=== PATIENT | male | born 1950 | race Two or more races ===

== ENCOUNTER 2025-01-11 09:57 | Inpatient (IN) | payer MEDICARE, MEDICAID ==
[~2025-01-11] VITALS: Ht 165.1 cm; Wt 78.6 kg
--- NOTE | 2025-01-11 10:56 | ED.PDOC ---
GI ASSESSMENT HPI Comments 74 y/o M presents with relatives for c/o abdominal pain for 2 days Patient is a poor historian. He reports on onset of pain following recent "stent placement in [his] stomach" on 12/29/24 at another facility. Patient, via previous discharge paperwork from said facility, had a ERCP with biliary stent removed and replaced on 12/22/24. He reports on being found with a liver mass and having a biopsy performed on 12/29/24. On 12/19/24, patient also reports on having a echocardiogram performed, showing a EF of 25%. Patient denies any nausea, vomiting, diarrhea, constipation, urinary symptoms, fever, chills, or other associated symptoms or modifying factors at this time. Past medical history: DM, HTN, HLD, on lasix, Cefdinir and Augment 7 day antibiotic course recent completion Past surgical history: liver biopsy, ERCP w/biliary stent removal and replacement HPI: Poor Historian. REVIEW OF SYSTEMS: CONSTITUTIONAL: Denies acute: fever, diaphoresis, chills, generalized weakness. HEAD: Denies acute: headache, photophobia Eyes: Denies acute: Double vision, vision loss, eye pain, eye discharge. EARS: Denies acute: tinnitus, hearing loss, ear discharge, ear pain, THROAT: Denies acute: sore throat, swelling, difficulty swallowing , pain with swallowing, change in voice. NECK: Denies acute: neck pain, neck swelling, stiff neck. HEART: Denies acute : chest pain, palpitations, LUNGS: Denies acute: SOB, wheezing, cough, hemoptysis ABDOMEN: Denies acute: Nausea, Vomiting, diarrhea, melena , hematemesis, hematochezia SKIN: Denies acute: rash, redness, lesions, itchiness. EXTREMITIES: Denies acute: calf pain, numbness, tingling, weakness, denies pain in extremity. Denies acute: Low back pain. Neuro: Denies acute: focal neurological deficit, motor or sensory focal neurological deficit, tremors, seizure like activity, confusion, dizziness, change in mental status, loss of bowel or bladder function, cauda equina like symptoms. : Denies acute: dysuria, hematuria, flank pain, increase in urinary frequency. PSYCH: Denies acute: hallucination, suicidal ideation, homicidal ideation. PHYSICAL EXAM: General: ----mild----acute distress, awake and alert. Head: normocephalic, atraumatic. Neck: supple, trachea is midline, no swelling. Throat: Normal phonation. Eyes:, no erythema, no purulent discharge, no proptosis, no icterus. Heart: regular rate, regular rhythm, no significant murmur appreciated. Lungs: no apparent respiratory distress, Able to speak in full sentences. No wheezing, no rhonchi, no crackles. No stridors Clear to auscultation bilaterally. Abdomen: Umbilical tender to palpation, non distended, soft, no guarding, no rebound, + bowel sounds. Neuro: Awake, Alert, oriented to name, self, situation, follows commands GCS=15. Speech is normal. Skin: no petechia, no purpura, no cyanosis, non-pale, not jaundice. Lower extremities: --2/4 b/l - Pitting edema no deformity, no focal swelling, no calf TTP. Makes eye contact. moves all four extremities. Face: no apparent facial droop. ED COURSE: Time Seen by MD: 10:25 Reviewed Notes: Nurses Notes, Medications, Allergies Allergies: Coded Allergies: NO KNOWN ALLERGIES (Unverified , 01/11/25) Home Meds No Active Prescriptions or Reported Meds Information Source: Patient, Relative Mode of Arrival: Wheelchair Was a procedure done? Was a procedure done?: No GI differential Dx Differential Diagnosis: Other (DDX include but not limited to diverticulitis, colitis, gastroenteritis, acute abdomen, SBO, enteritis, constipation, volvulus, appendicitis, Gallbladder disease, choledocolithiasis, ascending cholangitis, pancreatitis, intraAbdominal mass/neoplasm, hepatitis, UTI, pylonephritis, kidney stone, aneurysm, dissection, Inflammatory bowel disease, gastroparesis, ischemic bowel.) X-Ray, Labs, Meds, VS Vital Signs Date Time Temp Pulse Resp B/P (MAP) Pulse Ox O2 Delivery O2 Flow Rate FiO2 01/11/25 16:45 136/88 01/11/25 16:29 84 16 98 Room Air 01/11/25 16:29 98.2 84 16 136/88 (104) 98 98.2 01/11/25 11:16 86 01/11/25 11:15 98.0 85 16 126/88 (101) 99 98.0 Lab Test 01/11/25 17:14 01/11/25 13:28 01/11/25 12:23 01/11/25 11:03 Range/Units Lactic Acid Level 3.5 *H 2.6 *H 3.1 *H 0.4-2.0 mmol/L Urine Color Yellow Yellow Urine Clarity Clear Clear Urine pH 6.0 5.0-9.[address] [place] 1.031 1.001-1.035 Urine Protein 1+ H Negative Urine Ketones Negative Negative Urine Blood Negative Negative /uL Urine Nitrite Negative Negative Urine Bilirubin 1+ Negative Urine Urobilinogen 2 H Negative mg/dL Urine Leukocyte Esterase Negative Negative /uL Urine RBC 2 0 - 3 /hpf Urine Microscopic WBC 2 0-3 /HPF Urine Squamous Epithelial Cells Few <5 /hpf Urine Calcium Oxalate Crystals Few None Seen Urine Bacteria None seen None Seen /hpf Urine Mucus Few None Seen Urine Glucose Normal Normal mg/dL White Blood Count 5.0 4.4-10.8 10^3/uL Red Blood Count 4.90 4.5-5.90 10^6/uL Hemoglobin 10.4 L 13.5-17.5 g/dL Hematocrit 33.3 L 41.0-53.0 % Mean Corpuscular Volume 67.9 L 80.0-100.0 fL Mean Corpuscular Hemoglobin 21.2 L 28.0-32.0 pg Mean Corpuscular Hemoglobin Concent 31.1 L 32.0-36.0 g/dL Red Cell Distribution Width 21.6 H 11.8-14.3 % Platelet Count 218 140-450 10^3/uL Mean Platelet Volume 8.3 6.9-10.8 fL Neutrophils (%) (Auto) 65.8 37.0-80.0 % Lymphocytes (%) (Auto) 23.4 10.0-50.0 % Monocytes (%) (Auto) 9.0 0.0-12.0 % Eosinophils (%) (Auto) 0.9 0.0-7.0 % Basophils (%) (Auto) 0.9 0.0-2.0 % Neutrophils # (Auto) 3.3 1.6-8.6 10 ^3/uL Lymphocytes # (Auto) 1.2 0.4-5.4 10 ^3/uL Monocytes # (Auto) 0.5 0-1.3 10 ^3/uL Eosinophils # (Auto) 0 0-0.8 10 ^3/uL Basophils # (Auto) 0 0-0.2 10 ^3/uL Nucleated Red Blood Cells 0.1 % Sodium Level 142 136-145 mmol/L Potassium Level 3.7 3.5-5.1 mmol/L Chloride Level 109 H 98-107 mmol/L Carbon Dioxide Level 23 20-31 mmol/L Anion Gap 10 5-15 Blood Urea Nitrogen 9 9-23 mg/dL Creatinine 0.78 0.700-1.30 mg/dL Glomerular Filtration Rate Calc 94 >90 mL/min BUN/Creatinine Ratio 11.5 10.0-20.0 Serum Glucose 134 H 74-106 mg/dL Calcium Level 9.2 8.7-10.4 mg/dL Total Bilirubin 2.4 H 0.2-1.0 mg/dL Aspartate Amino Transferase (AST) 53 H 13-40 U/L Alanine Aminotransferase (ALT) 31 7-40 U/L Alkaline Phosphatase 417 H 46-116 U/L Troponin I High Sensitivity 12 </=54 ng/L Total Protein 8.1 5.7-8.2 g/dL Albumin 3.4 3.2-4.8 g/dL Lipase 30 12-53 U/L [place] [address] Ph: [phone] DIAGNOSTIC IMAGING Diagnostic Imaging Report : [id number] Signed PATIENT: TIM NULL ACCT: [id number] UNIT: [id number] : 1950 LOC: ER ROOM / BED: / AGE / SEX: 74 / M ADM STATUS: REG ER SERVICE 1040 ORDERING PHYSICIAN: MONI GRUBER DO PROCEDURE(s): ABPLIV - CT AB PEL WITH IV CON ONLY REASON: POST OP ABD PAIN ORDER NUMBER(s): [id number], ACCESSION NUMBER(s): [id number] CLINICAL INFORMATION: Postop abdominal pain. Reported abdominal stent placement on 12/31/2024. TECHNIQUE: Axial CT images of the abdomen and pelvis were obtained after the u neventful administration of 100 mL Omnipaque 300 IV contrast. Coronal and sagittal reformatted images were obtained, reviewed, and stored. All CT scans at this medical facility are performed using dose modulation techniques as appropriate to a performed exam including the following: Automated exposure control was utilized; adjustment of the MA and/or KV according to patient size; and use of iterative reconstruction technique. CTDIvol = 9.57 mGy DLP = 531.5 mGy-cm COMPARISON: None FINDINGS: Motion artifact limits evaluation. Lung bases: Small right pleural effusion partially visualized, with overlying atelectasis. Moderate emphysematous changes partially visualized. Liver: Nodular contour of the liver with relative enlargement of the left hepatic lobe, may be seen with cirrhosis in the appropriate clinical setting. There is a peripherally enhancing structure in the upper abdomen adjacent to the caudate lobe of the liver, measuring up to 4.5 x 4.5 x 5.5 cm, with central low-density structure measuring slightly greater than fluid attenuation with the surrounding area of enhancement demonstrating a greater degree of enhancement in the adjacent portions of the liver, possible liver mass or mass adjacent to the liver. Biliary: There is a common bile duct stent in place with associated catheter tubing along the proximal and distal aspects of the stent, likely components of the stent. There is no intrahepatic biliary ductal dilatation. There is a small amount of gas within the gallbladder and moderate pericholecystic fluid, although may be due to the ascites. Spleen: Unremarkable. Pancreas: Pancreatic duct measures up to 3 mm in diameter, at the upper limits of normal Adrenal glands: Unremarkable. No mass. Kidneys: No hydronephrosis or mass. Aorta/Vascular: Moderate atherosclerotic calcification. No abdominal aortic aneurysm or dissection. Retroperitoneum: Limited evaluation due to motion artifact and ascites. Bowel/mesentery: Moderate ascites. Nonspecific mildly distended small bowel loops. No small bowel obstruction. Appendix is not visualized. Moderate stool in the colon. Pelvic organs: Limited evaluation due to prominent beam hardening artifact from the bilateral hip prostheses. Bladder: Limited evaluation to prominent beam hardening artifact from the bilateral hip prostheses. Abdominal wall: Diffuse anasarca. Bones: No acute fracture or focal intraosseous lesion. IMPRESSION: 1. Mass in the upper abdomen with enhancement of its periphery and central hypo enhancement/non enhancement, abutting the caudate lobe of the liver, but periphery of the mass appears to enhance greater than the liver parenchyma. Possible liver mass or mass adjacent to the liver. Malignancy not excluded. Correlate with clinical findings and clinical history. 2. Common bile duct stent in place as described above. 3. Gas within the gallbladder may be due to recent intervention associated with the bile duct stent placement. Infectious/inflammatory etiology not excluded in the appropriate clinical setting. Cholecystic fluid may be due to the ascites. Correlate with clinical findings. 4. Moderate ascites and anasarca. 5. Small right pleural effusion. 6. Pancreatic duct measures at the upper limits of normal in diameter. 7. Cirrhotic liver morphology. 8. Additional findings as detailed above. ATED BY: ALBERT SAMUEL DO DICTATED DATE/TIME: 01/11/25 152 SIGNED BY: ALBERT SAMUEL DO SIGNED DATE/TIME: 01/11/25 1529 CC: Time of 1ST Reevaluation: 10:25 Reevaluation 1ST: Unchanged Patient Education/Counseling: Diagnosis, Treatment Family Education/Counseling: Diagnosis, Treatment Comments Patient presented with the above HPI.---postoperative abdominal pain---workup was initiated. patient was found with the above mentioned diagnosis. the following medications were ordered: please refer to order lists of meds and tests obtained by myself Dr. Gruber. Patient ED course and VS have been stabilized. Patient has been reassessed in the ED and remained in a stable condition. Pertinent incidental findings were discussed with the patient and/or family. Patient/family voices understanding and is agreeable with plan. Patient has been observed in the ED adequate length of time to insure improvement/stability. Escalation of care considered: Consideration of escalation to observation or admission There was a delay of care because patient was at very hard IV stick. PICC line were unable to establish have midline. CT scan was obtained with contrast. Findings on CT scan report were essentially chronic findings. Patient is sensitive leaving against medical advice. He requested the IV to be removed. Patient went outside and waited in the car for repeat lactic acid. Patient was found with rising lactic acid. Antibiotics initiated. Patient was ADMITTED to the medicine team for further evaluation and treatment of their presentation. All the reports of any imaging studies that were ordered by myself were reviewed by myself. Departure 1 Departure Time of Disposition: 17:48 Impression: Primary Impression: Postoperative abdominal pain Additional Impressions: Ascites Liver mass Abnormal finding on CT scan Elevated lactic acid level Small pleural effusion Liver cirrhosis Disposition: ADMITTED INPATIENT Admit to: Tele Condition: Guarded Additional Instructions: Patient left against medical advice [address] [address] Ph: [phone] DIAGNOSTIC IMAGING Diagnostic Imaging Report : [id number] Signed PATIENT: TIM NULL ACCT: [id number] UNIT: [id number] : 1950 LOC: ER ROOM / BED: / AGE / SEX: 74 / M ADM STATUS: REG ER SERVICE 1040 ORDERING PHYSICIAN: MONI GRUBER DO PROCEDURE(s): ABPLIV - CT AB PEL WITH IV CON ONLY REASON: POST OP ABD PAIN ORDER NUMBER(s): [id number], ACCESSION NUMBER(s): [id number] CLINICAL INFORMATION: Postop abdominal pain. Reported abdominal stent juan josé cement on 12/31/2024. TECHNIQUE: Axial CT images of the abdomen and pelvis were obtained after the uneventful administration of 100 mL Omnipaque 300 IV contrast. Coronal and sagittal reformatted images were obtained, reviewed, and stored. All CT scans at this medical facility are performed using dose modulation techniques as appropriate to a performed exam including the following: Automated exposure control was utilized; adjustment of the MA and/or KV according to patient size; and use of iterative reconstruction technique. CTDIvol = 9.57 mGy DLP = 531.5 mGy-cm COMPARISON: None FINDINGS: Motion artifact limits evaluation. Lung bases: Small right pleural effusion partially visualized, with overlying atelectasis. Moderate emphysematous changes partially visualized. Liver: Nodular contour of the liver with relative enlargement of the left hepatic lobe, may be seen with cirrhosis in the appropriate clinical setting. There is a peripherally enhancing structure in the upper abdomen adjacent to the caudate lobe of the liver, measuring up to 4.5 x 4.5 x 5.5 cm, with central low-density structure measuring slightly greater than fluid attenuation with the surrounding area of enhancement demonstrating a greater degree of enhancement in the adjacent portions of the liver, possible liver mass or mass adjacent to the liver. Biliary: There is a common bile duct stent in place with associated catheter tubing along the proximal and distal aspects of the stent, likely components of the stent. There is no intrahepatic biliary ductal dilatation. There is a small amount of gas within the gallbladder and moderate pericholecystic fluid, although may be due to the ascites. Spleen: Unremarkable. Pancreas: Pancreatic duct measures up to 3 mm in diameter, at the upper limits of normal Adrenal glands: Unremarkable. No mass. Kidneys: No hydronephrosis or mass. Aorta/Vascular: Moderate atherosclerotic calcification. No abdominal aortic aneurysm or dissection. Retroperitoneum: Limited evaluation due to motion artifact and ascites. Bowel/mesentery: Moderate ascites. Nonspecific mildly distended small bowel loops. No small bowel obstruction. Appendix is not visualized. Moderate stool in the colon. Pelvic organs: Limited evaluation due to prominent beam hardening artifact from the bilateral hip prostheses. Bladder: Limited evaluation to prominent beam hardening artifact from the bilateral hip prostheses. Abdominal wall: Diffuse anasarca. Bones: No acute fracture or focal intraosseous lesion. IMPRESSION: 1. Mass in the upper abdomen with enhancement of its periphery and central hypo enhancement/non enhancement, abutting the caudate lobe of the liver, but periphery of the mass appears to enhance greater than the liver parenchyma. Possible liver mass or mass adjacent to the liver. Malignancy not excluded. Correlate with clinical findings and clinical history. 2. Common bile duct stent in place as described above. 3. Gas within the gallbladder may be due to recent intervention associated with the bile duct stent placement. Infectious/inflammatory etiology not excluded in the appropriate clinical setting. Cholecystic fluid may be due to the ascites. Correlate with clinical findings. 4. Moderate ascites and anasarca. 5. Small right pleural effusion. 6. Pancreatic duct measures at the upper limits of normal in diameter. 7. Cirrhotic liver morphology. 8. Additional findings as detailed above. ATED BY: ALBERT SAMUEL DO DICTATED DATE/TIME: 01/11/25 1529 SIGNED BY: ALBERT SAMUEL DO SIGNED DATE/TIME: 01/11/25 152 CC: e-Prescriptions No Active Prescriptions or Reported Meds Discharged With: Self Critical Care Note Critical Care Time?: Yes (45 min-critical care time only) I personally scribed for MONI GRUBER DO ([email or web address]) on 01/11/25 at 10:56. Electronically submitted by Cholo Torres ([email or web address]). I personally scribed for MONI GRUBER DO ([email or web address]) on 01/11/25 at 13:41. Electronically submitted by Cholo Torres ([email or web address]). I personally scribed for MONI GRUBER DO ([email or web address]) on 01/11/25 at 16:17. Electronically submitted by Cholo Torres ([email or web address]). MONI GRUBER DO Jan 11, 2025 10:56
--- NOTE | 2025-01-11 11:18 | ECG ---
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
[2025-01-11 11:32] LABS: Eosinophils # (auto) 0 10 ^3/uL (0-0.8); Eosinophils % (auto) 0.9 % (0.0-7.0); Mean Corpuscular Hemoglobin 21.2 pg (28.0-32.0); Nucleated Red Blood Cells % 0.1 %
[2025-01-11 11:35] LABS: Basophils # (auto) 0 10 ^3/uL (0-0.2); Basophils % (auto) 0.9 % (0.0-2.0); Hematocrit 33.3 % (41.0-53.0); Hemoglobin 10.4 g/dL (13.5-17.5); Lymphocytes # (auto) 1.2 10 ^3/uL (0.4-5.4); Lymphocytes % (auto) 23.4 % (10.0-50.0); Mean Corpuscular Hgb Conc. 31.1 g/dL (32.0-36.0); Mean Corpuscular Volume 67.9 fL (80.0-100.0); Monocytes # (auto) 0.5 10 ^3/uL (0-1.3); Neutrophils # (auto) 3.3 10 ^3/uL (1.6-8.6); Neutrophils % (auto) 65.8 % (37.0-80.0); Platelet Count (auto) 218 10^3/uL (140-450)
[2025-01-11 11:39] LABS: Red Cell Distribution Width 21.6 % (11.8-14.3)
[2025-01-11 11:49] LABS: Alanine Aminotransferase 31 U/L (7-40); Albumin 3.4 g/dL (3.2-4.8); Anion Gap 10 (5-15); BUN/Creatinine Ratio 11.5 (10.0-20.0); Blood Urea Nitrogen 9 mg/dL (9-23); Calcium 9.2 mg/dL (8.7-10.4); Carbon Dioxide 23 mmol/L (20-31); Potassium 3.7 mmol/L (3.5-5.1); Sodium 142 mmol/L (136-145); Total Protein 8.1 g/dL (5.7-8.2)
[2025-01-11 11:50] LABS: Alkaline Phosphatase 417 U/L (46-116); Aspartate Aminotransferase 53 U/L (13-40); Bilirubin, Total 2.4 mg/dL (0.2-1.0); Chloride 109 mmol/L (98-107); Glucose 134 mg/dL (74-106)
[2025-01-11 12:02] LABS: Lactic Acid w/Reflex 3.1 mmol/L (0.4-2.0)
[2025-01-11] MEDS: IOHEXOL 300 MG/ML 100ML BOTTLE IJ ONE (12:04)
[2025-01-11 12:22] LABS: Lipase 30 U/L (12-53)
[2025-01-11 14:26] LABS: Urine Bacteria None Seen /hpf (None Seen)
[2025-01-11 14:34] LABS: Urine Blood Negative /uL (Negative); Urine Clarity Clear (Clear); Urine Color Yellow (Yellow); Urine Mucus FEW (None Seen); Urine Protein, UAD 1+ (Negative); Urine Specific Gravity 1.031 (1.001-1.035); Urine Squamous Epithelial Cell FEW /hpf (<5); Urine Urobilinogen 2 mg/dL (Negative); Urine WBC 2 /HPF (0-3)
--- NOTE | 2025-01-11 15:31 | DVH ---
CLINICAL INFORMATION: Postop abdominal pain. Reported abdominal stent placement on 12/31/2024. TECHNIQUE: Axial CT images of the abdomen and pelvis were obtained after the uneventful administrati on of 100 mL Omnipaque 300 IV contrast. Coronal and sagittal reformatted images were obtained, review ed, and stored. All CT scans at this medical facility are performed using dose modulation techniques as appropriate to a performed exam including the following: Automated exposure control was utilized; adjustment of the MA and/or KV according to patient size; and use of iterative reconstruction [employer] ue. CTDIvol = 9.57 mGy DLP = 531.5 mGy-cm COMPARISON: None FINDINGS: Motion artifact limits evaluation. Lung bases: Small right pleural effusion partially visualized, with overlying atelectasis. Moderate e mphysematous changes partially visualized. Liver: Nodular contour of the liver with relative enlargement of the left hepatic lobe, may be seen with cirrhosis in the appropriate clinical setting. There is a peripherally enhancing structure in th e upper abdomen adjacent to the caudate lobe of the liver, measuring up to 4.5 x 4.5 x 5.5 cm, with c entral low-density structure measuring slightly greater than fluid attenuation with the surrounding a tim of enhancement demonstrating a greater degree of enhancement in the adjacent portions of the live r, possible liver mass or mass adjacent to the liver. Biliary: There is a common bile duct stent in place with associated catheter tubing along the proxima l and distal aspects of the stent, likely components of the stent. There is no intrahepatic biliary d uctal dilatation. There is a small amount of gas within the gallbladder and moderate pericholecystic fluid, although may be due to the ascites. Spleen: Unremarkable. Pancreas: Pancreatic duct measures up to 3 mm in diameter, at the upper limits of normal Adrenal glands: Unremarkable. No mass. Kidneys: No hydronephrosis or mass. Aorta/Vascular: Moderate atherosclerotic calcification. No abdominal aortic aneurysm or dissection. Retroperitoneum: Limited evaluation due to motion artifact and ascites. Bowel/mesentery: Moderate ascites. Nonspecific mildly distended small bowel loops. No small bowel obs truction. Appendix is not visualized. Moderate stool in the colon. Pelvic organs: Limited evaluation due to prominent beam hardening artifact from the bilateral hip pro stheses. Bladder: Limited evaluation to prominent beam hardening artifact from the bilateral hip prostheses. Abdominal wall: Diffuse anasarca. Bones: No acute fracture or focal intraosseous lesion. IMPRESSION: 1. Mass in the upper abdomen with enhancement of its periphery and central hypo enhancement/non enhan cement, abutting the caudate lobe of the liver, but periphery of the mass appears to enhance greater than the liver parenchyma. Possible liver mass or mass adjacent to the liver. Malignancy not excluded . Correlate with clinical findings and clinical history. 2. Common bile duct stent in place as described above. 3. Gas within the gallbladder may be due to recent intervention associated with the bile duct stent p lacement. Infectious/inflammatory etiology not excluded in the appropriate clinical setting. Cholecys tic fluid may be due to the ascites. Correlate with clinical findings. 4. Moderate ascites and anasarca. 5. Small right pleural effusion. 6. Pancreatic duct measures at the upper limits of normal in diameter. 7. Cirrhotic liver morphology. 8. Additional findings as detailed above.
[2025-01-11] MEDS: PIPERACILLIN-TAZOB 3.375GM 100 ML IV ONE (16:45)
[2025-01-11] MEDS: FUROSEMIDE 40 MG/4 ML VIAL IV ONE (16:45)
[2025-01-11 17:53] LABS: Lactic Acid w/Reflex 3.5 mmol/L (0.4-2.0)
[2025-01-11] MEDS ORDERED: ONDANSETRON HCL 4 MG/2 ML VIAL IV PRN (18:30)
[2025-01-11] MEDS ORDERED: MORPHINE SULFATE INJ 2 MG/ml SYRG IV PRN (18:30)
[2025-01-11] MEDS ORDERED: NITROGLYCERIN 0.4 MG SL TAB SL PRN (18:30)
[2025-01-11 19:00] LABS: INR 1.08 (0.9-1.15); Prothrombin Time 11.4 sec (9.3-11.8)
--- NOTE | 2025-01-11 19:08 | DVHHP2 ---
History of Present Illness Reason for Visit: Abdominal pain History of Present Illness 74-year-old male presented with family at bedside, patient complained of abdominal pain for 2 days. Patient and family are poor historians, per ED notes discharge paperwork stated patient had ERCP with biliary stent removal and replacement on 12/22/2024. Also found a liver mass and it was biopsied on 12/29/2024. Echo noted EF to be 25%. Per patient he was to return to have ERCP in 6 weeks, as well as possible ICD placement. Denies any fever, fatigue, chest pain,nausea, vomiting, diarrhea, constipation, urinary symptoms, chills, or other associated symptoms or modifying factors at this time. Completed cefdinir and Augmentin [address] ABD/PELV showing gas in the gallbladder/ascites/ mass (see report). Patient admitted to telemetry for antibiotics and further monitoring/testing. Past Medical History DM, HTN, HLD, CHF Past Surgical History biliary stent Family History Denies Smoke: <1 pack per day (1 ciggarette per day) ALCOHOL: none Drugs: None Lives: with Family Review of Systems Constitutional: No: Fever, Chills, Sweats, Weakness, Malaise, Other Eyes: No: Pain, Vision change, Conjunctivae inflammation, Eyelid inflammation, Other, Redness ENT: No: Ear pain, Ear discharge, Nose pain, Nose discharge, Nose congestion, Mouth pain, Mouth swelling, Throat pain, Throat swelling, Other Respiratory: No: Cough, Dry, Shortness of breath, SOB with excertion, Wheezing, Hemoptysis, Pleuritic Pain, Sputum, Wheezing, Other Cardiovascular: No: Chest Pain, Palpitations, Orthopnea, Paroxysmal Noc. Dyspnea, Edema, Lt Headedness, Other Gastrointestinal: Abdominal Pain; No: Nausea, Vomiting, Diarrhea, Constipation, Melena, Hematochezia, Other Genitourinary: No Dysuria, No Frequency, No Incontinence, No Hematuria, No Retention, No Other Musculoskeletal: No: other, neck pain, shoulder pain, arm pain, back pain, hand pain, leg pain, foot pain Skin: No: Rash, Lesions, Jaundice, Bruising, Other Neurological: No: Weakness, Numbness, Incoordination, Change in speech, Confusion, Seizures, Other Allergies: Coded Allergies: NO KNOWN ALLERGIES (Unverified , 01/11/25) Medications Current Medications Medications Dose Ordered Sig/Mikki Route Start Time Stop Time Status Last Admin Dose Admin Ondansetron HCl 4 mg Q4HP PRN IV 01/11/25 18:30 UNV Docusate Sodium 100 mg BIDPRN PRN PO 01/11/25 18:30 UNV Morphine Sulfate 2 mg Q4HPRN PRN IV 01/11/25 18:30 UNV Nitroglycerin 0.4 mg Q5MINP PRN SL 01/11/25 18:30 UNV Morphine Sulfate 2 mg Q30M PRN IV 01/11/25 18:30 UNV Piperacillin Sod/ Tazobactam Sod 100 ml @ 25 mls/hr Q8HR IV 01/11/25 22:00 UNV Atorvastatin Calcium 10 mg HS PO 01/11/25 22:00 UNV Sacubitril/ Valsartan 1 tab BID PO 01/11/25 22:00 UNV Empaglifozin 10 mg DAILY PO 01/12/25 10:00 UNV Lactulose 30 ml DAILY PO 01/12/25 10:00 UNV Furosemide 40 mg DAILY PO 01/12/25 10:00 UNV Metoprolol Succinate 25 mg DAILY PO 01/12/25 10:00 UNV Pantoprazole Sodium 40 mg DAILY@0600 PO 01/12/25 06:00 UNV Spironolactone 25 mg DAILY PO 01/12/25 10:00 UNV Exam Vital Signs Vital Signs Date Time Temp Pulse Resp B/P (MAP) Pulse Ox O2 Delivery O2 Flow Rate FiO2 01/11/25 16:45 136/88 01/11/25 16:29 84 16 98 Room Air 01/11/25 16:29 98.2 98.2 General Appearance: Alert, Oriented X3, Cooperative, No acute distress HEENT: Atraumatic, PERRLA, EOMI, Mucous membr. moist/pink Respiratory: Clear to auscultation, Normal air movement Cardiovascular: Regular rate, Normal S1, Normal S2, No murmurs Abdominal: Normal bowel sounds, Soft, No tenderness, No hepatospenomegaly, No masses, Other Extremities: No clubbing, No cyanosis, No edema, Normal pulses, No tenderness/swelling Skin: No rashes, No breakdown, No significant lesion Neuro: Normal gait, Normal speech, Strength at 5/5 X4 ext, Normal tone, Sensation intact, Cranial nerves 3-12 NL, Reflexes 2+ Psych/Mental Status: Mental status NL, Mood NL Labs/Xrays Labs And imaging reviewed Labs Test 01/11/25 18:29 01/11/25 17:14 01/11/25 12:23 01/11/25 11:03 Range/Units Lactic Acid Level 3.5 *H 0.4-2.0 mmol/L Urine Color Yellow Yellow Urine Clarity Clear Clear Urine pH 6.0 5.0-9.0 Urine Specific [place] 1.031 1.001-1.035 Urine Protein 1+ H Negative Urine Ketones Negative Negative Urine Blood Negative Negative /uL Urine Nitrite Negative Negative Urine Bilirubin 1+ Negative Urine Urobilinogen 2 H Negative mg/dL Urine Leukocyte Esterase Negative Negative /uL Urine RBC 2 0 - 3 /hpf Urine Microscopic WBC 2 0-3 /HPF Urine Squamous Epithelial Cells Few <5 /hpf Urine Calcium Oxalate Crystals Few None Seen Urine Bacteria None seen None Seen /hpf Urine Mucus Few None Seen Urine Glucose Normal Normal mg/dL White Blood Count 5.0 4.4-10.8 10^3/uL Red Blood Count 4.90 4.5-5.90 10^6/uL Hemoglobin 10.4 L 13.5-17.5 g/dL Hematocrit 33.3 L 41.0-53.0 % Mean Corpuscular Volume 67.9 L 80.0-100.0 fL Mean Corpuscular Hemoglobin 21.2 L 28.0-32.0 pg Mean Corpuscular Hemoglobin Concent 31.1 L 32.0-36.0 g/dL Red Cell Distribution Width 21.6 H 11.8-14.3 % Platelet Count 218 140-450 10^3/uL Mean Platelet Volume 8.3 6.9-10.8 fL Neutrophils (%) (Auto) 65.8 37.0-80.0 % Lymphocytes (%) (Auto) 23.4 10.0-50.0 % Monocytes (%) (Auto) 9.0 0.0-12.0 % Eosinophils (%) (Auto) 0.9 0.0-7.0 % Basophils (%) (Auto) 0.9 0.0-2.0 % Neutrophils # (Auto) 3.3 1.6-8.6 10 ^3/uL Lymphocytes # (Auto) 1.2 0.4-5.4 10 ^3/uL Monocytes # (Auto) 0.5 0-1.3 10 ^3/uL Eosinophils # (Auto) 0 0-0.8 10 ^3/uL Basophils # (Auto) 0 0-0.2 10 ^3/uL Nucleated Red Blood Cells 0.1 % Sodium Level 142 136-145 mmol/L Potassium Level 3.7 3.5-5.1 mmol/L Chloride Level 109 H 98-107 mmol/L Carbon Dioxide Level 23 20-31 mmol/L Anion Gap 10 5-15 Blood Urea Nitrogen 9 9-23 mg/dL Creatinine 0.78 0.700-1.30 mg/dL Glomerular Filtration Rate Calc 94 >90 mL/min BUN/Creatinine Ratio 11.5 10.0-20.0 Serum Glucose 134 H 74-106 mg/dL Calcium Level 9.2 8.7-10.4 mg/dL Total Bilirubin 2.4 H 0.2-1.0 mg/dL Aspartate Amino Transferase (AST) 53 H 13-40 U/L Alanine Aminotransferase (ALT) 31 7-40 U/L Alkaline Phosphatase 417 H 46-116 U/L Troponin I High Sensitivity 12 </=54 ng/L Total Protein 8.1 5.7-8.2 g/dL Albumin 3.4 3.2-4.8 g/dL Lipase 30 12-53 U/L Assessment/Plan Assessment/Plan S/P biliary stenting/ rule out sepsis Admit to telemetry PICC team to reinsert IV access Zosyn Labs in a.m. Liver cirrhosis with ascites Continue lactulose Moderate ascites- consult Radiology if enough to drain CHF Continue home medications Cardiac diet GI prophylaxis VTE Prophylaxis if paracentesis not needed Plan discussed with: Patient My Orders Orders - RA ALTMAN EIGHT SECTION BLOWER Procedure Category Date Status Time Prothrombin Time W/ LAB 01/11/25 In Process INR 17:59 Admit ADMIT 01/11/25 Transmitted 18:23 Allergies SOPHIA 01/11/25 In Process 18:23 Code Status CODE 01/11/25 Transmitted 18:23 Ondansetron Hcl PHA 01/11/25 Logged (Zofran) 18:30 Docusate Sodium PHA 01/11/25 Logged Capsule (Colace 18:30 Fall Risk Precautions SOPHIA 01/11/[address] 18:23 Complete Blood Count LAB 01/12/25 Verified 04:00 Comprehensive LAB 01/12/25 Verified Metabolic Panel 04:00 Cardiac DIET 01/11/25 Transmitted Diet-2gna,Lofat,Lochol Dinner Condition: Fair SOPHIA 01/11/25 In Process 18:23 Bedside Commode SOPHIA 01/11/25 In Process 18:23 Morphine Sulfate PHA 01/11/25 Logged Injection 18:30 Nitroglycerin PHA 01/11/25 Logged Sublingual (Ntrostat 18:30 Morphine Sulfate PHA 01/11/25 Logged Injection 18:30 Stat Ekg For Chest SOPHIA 01/11/25 In Process Pain 18:23 Notify Md Of Changes [facility] 01/11/25 In Process From Base 18:23 Pharmacy Data Analyst For [facility] 01/11/25 In Process 24 Hours 18:23 Emergency Dysrhythmia [facility] 01/11/25 In Process Protocol 18:23 Rhythm Strips Once SOPHIA 01/11/25 In Process Every Shift 18:23 Oxygen By Nasal RT 01/11/25 Transmitted Cannula 18:23 Piperacillin-Tazob PHA 01/11/25 Logged 3.375gm (Zosyn 3.375g 22:00 Atorvastatin (Lipitor) PHA 01/11/25 Logged 22:00 Sacubitril-Valsartan PHA 01/11/25 Logged (Entresto 24-26 Mg 22:00 Empagliflozin PHA 01/12/25 Logged (Jardiance) 10:00 Lactulose Oral PHA 01/12/25 Logged 10:00 Furosemide Tablet PHA 01/12/25 Logged (Lasix Tablet) 10:00 Metoprolol Xl PHA 01/12/25 Logged Succinate (Toprol Xl) 10:00 Pantoprazole Tablet PHA 01/12/25 Logged (Protonix Tablet) 06:00 Spironolactone PHA 01/12/25 Logged (Aldactone) 10:00 Date of Service: Jan 11, 2025 Billing Provider: RA ALTMAN Common Visit Codes: [id number] INP/OBS CARE (HIGH) Secondary Visit Codes: [id number] CHNG SMOKING 3-10m RA ALTMAN Jan 11, 2025 19:08
[2025-01-11 19:15] VITALS: PULSE 84; RESP 28; O2SAT 97
[2025-01-11 20:00] VITALS: PULSE 87; RESP 18; O2SAT 97
[2025-01-11 20:45] VITALS: PULSE 87; RESP 18; O2SAT 97
[2025-01-11] MEDS: SODIUM CHLORIDE 0.9% 1,000 ML IV ONE (21:15)
[2025-01-11 21:20] VITALS: BP 119/72; PULSE 87; RESP 18; TEMP 98.8; O2SAT 97
[2025-01-11] MEDS: SACUBITRIL-VALSARTAN 24mg/26mg TAB PO SCH (21:41)
[2025-01-11] MEDS: PIPERACILLIN-TAZOB 3.375GM 100 ML IV SCH (21:41)
[2025-01-11] MEDS: ATORVASTATIN 20 MG TAB PO SCH (21:41)
[2025-01-12] VITALS (8 sets, daily range): BP systolic 107–142; BP diastolic 67–96; PULSE 82–95; RESP 17–19; TEMP 97.3–98.7; O2SAT 97–100
[2025-01-12] MEDS: PANTOPRAZOLE 40 MG TAB PO SCH (05:25)
[2025-01-12 06:15] LABS: Eosinophils # (auto) 0 10 ^3/uL (0-0.8); Lymphocytes # (auto) 0.8 10 ^3/uL (0.4-5.4); White Blood Cell 4.6 10^3/uL (4.4-10.8)
[2025-01-12 06:19] LABS: Basophils # (auto) 0 10 ^3/uL (0-0.2); Basophils % (auto) 0.8 % (0.0-2.0); Eosinophils % (auto) 0.8 % (0.0-7.0); Hematocrit 28.9 % (41.0-53.0); Hemoglobin 9.4 g/dL (13.5-17.5); Lymphocytes % (auto) 17.4 % (10.0-50.0); Mean Corpuscular Hemoglobin 21.5 pg (28.0-32.0); Mean Corpuscular Hgb Conc. 32.4 g/dL (32.0-36.0); Mean Corpuscular Volume 66.3 fL (80.0-100.0); Monocytes # (auto) 0.5 10 ^3/uL (0-1.3); Monocytes % (auto) 10.1 % (0.0-12.0); Neutrophils # (auto) 3.2 10 ^3/uL (1.6-8.6); Neutrophils % (auto) 70.9 % (37.0-80.0); Nucleated Red Blood Cells % 0.2 %; Platelet Count (auto) 195 10^3/uL (140-450); Red Blood Cells 4.36 10^6/uL (4.5-5.90)
[2025-01-12 06:40] LABS: Alanine Aminotransferase 28 U/L (7-40); Anion Gap 9 (5-15); BUN/Creatinine Ratio 14.6 (10.0-20.0); Blood Urea Nitrogen 13 mg/dL (9-23); Calcium 8.9 mg/dL (8.7-10.4); Carbon Dioxide 24 mmol/L (20-31); Glucose 88 mg/dL (74-106); Sodium 142 mmol/L (136-145); Total Protein 7.2 g/dL (5.7-8.2)
[2025-01-12 06:44] LABS: Albumin 3.1 g/dL (3.2-4.8); Alkaline Phosphatase 350 U/L (46-116); Aspartate Aminotransferase 46 U/L (13-40); Bilirubin, Total 2.1 mg/dL (0.2-1.0); Chloride 109 mmol/L (98-107)
[2025-01-12 06:57] LABS: Red Cell Distribution Width 21.5 % (11.8-14.3)
[2025-01-12 08:46] LABS: Anisocytosis Slight; Hypochromia Slight; Platelet Estimate Adequate; Target Cell FEW
[2025-01-12] MEDS: DOCUSATE SOD 100 MG CAP PO PRN (10:21)
[2025-01-12] MEDS: SPIRONOLACTONE 25 MG TAB PO SCH (10:22)
[2025-01-12] MEDS: FUROSEMIDE 20 MG TAB PO SCH (10:22)
[2025-01-12] MEDS: EMPAGLIFLOZIN 10 MG TAB PO SCH (10:25)
[2025-01-12] MEDS: METOPROLOL SUCCINATE XL 50 MG TAB PO SCH (10:26)
[2025-01-12] MEDS: LACTULOSE 20Gm/30ML SOLN PO SCH (10:27)
[2025-01-12] MEDS: MORPHINE SULFATE INJ 2 MG/ml SYRG IV PRN (10:29)
--- NOTE | 2025-01-12 12:14 | DVHPN2 ---
Reviewed: Care Plan, H&P, Labs, Medications, Previous Orders, Radiology Changes from previous H/P or p: No Changes Eyes: No Pain, No Vision change, No Conjunctivae inflammation, No Eyelid inflammation, No Other, No Redness ENT: No Ear pain, No Ear discharge, No Nose pain, No Nose discharge, No Nose congestion, No Mouth pain, No Mouth swelling, No Throat pain, No Throat swelling, No Other Cardiovascular: No Chest Pain, No Palpitations, No Orthopnea, No Paroxysmal Noc. Dyspnea, No Edema, No Lt Headedness, No Other Respiratory: No Cough, No Dry, No Shortness of breath, No SOB with excertion, No Wheezing, No Hemoptysis, No Pleuritic Pain, No Sputum, No Other Gastrointestinal: No Nausea, No Vomiting; Abdominal Pain; No Diarrhea, No Constipation, No Melena, No Hematochezia, No Other Genitourinary: No Dysuria, No Frequency, No Incontinence, No Hematuria, No Retention, No Other Musculoskeletal: No other, No neck pain, No shoulder pain, No arm pain, No back pain, No hand pain, No leg pain, No foot pain Skin: No Rash, No Lesions, No Jaundice, No Bruising, No Other Objective Vitals Vital Signs Date Time Temp Pulse Resp B/P (MAP) Pulse Ox O2 Delivery O2 Flow Rate FiO2 01/12/25 10:29 95 19 142/92 01/12/25 09:00 97.3 98 97.3 01/11/25 20:45 Room Air* 0 21 Intake/Output Intake and Output 01/12/25 07:00 Intake Total 1520 ml Output Total 650 ml Balance 870 ml Intake Oral 420 ml IV Total 1100 ml Output Urine Total 650 ml Medications Current Medications Medications Dose Ordered Sig/Mikki Route Start Time Stop Time Status Last Admin Dose Admin Ondansetron HCl 4 mg Q4HP PRN IV 01/11/25 18:30 Docusate Sodium 100 mg BIDPRN PRN PO 01/11/25 18:30 01/12/25 10:21 100 MG Morphine Sulfate 2 mg Q4HPRN PRN IV 01/11/25 18:30 01/12/25 10:29 2 MG Nitroglycerin 0.4 mg Q5MINP PRN SL 01/11/25 18:30 Morphine Sulfate 2 mg Q30M PRN IV 01/11/25 18:30 Piperacillin Sod/ Tazobactam Sod 100 ml @ 25 mls/hr Q8HR IV 01/11/25 22:00 01/12/25 05:25 25 MLS/HR Atorvastatin Calcium 10 mg HS PO 01/11/25 22:00 01/11/25 21:41 10 MG Sacubitril/ Valsartan 1 tab BID PO 01/11/25 22:00 01/12/25 10:22 1 TAB Empaglifozin 10 mg DAILY PO 01/12/25 10:00 01/12/25 10:25 10 MG Lactulose 30 ml DAILY PO 01/12/25 10:00 01/12/25 10:27 30 ML Furosemide 40 mg DAILY PO 01/12/25 10:00 01/12/25 10:22 40 MG Metoprolol Succinate 25 mg DAILY PO 01/12/25 10:00 01/12/25 10:26 25 MG Pantoprazole Sodium 40 mg DAILY@0600 PO 01/12/25 06:00 01/12/25 05:25 40 MG Spironolactone 25 mg DAILY PO 01/12/25 10:00 01/12/25 10:22 25 MG Laboratory Results Laboratory Tests 01/12/25 05:00 Chemistry Test 01/12/25 05:00 Albumin 3.1 g/dL (3.2-4.8) L Calcium Level 8.9 mg/dL (8.7-10.4) Total Protein 7.2 g/dL (5.7-8.2) Coagulation Test 01/11/25 18:29 Prothrombin Time 11.4 sec (9.3-11.8) Prothrombin Time INR 1.08 (0.9-1.15) LFT Test 01/12/25 05:00 Alanine Aminotransferase (ALT) 28 U/L (7-40) Alkaline Phosphatase 350 U/L (46-116) H Aspartate Amino Transferase (AST) 46 U/L (13-40) H Total Bilirubin 2.1 mg/dL (0.2-1.0) H Urinalysis Test 01/11/25 12:23 Urine Color Yellow (Yellow) Urine Clarity Clear (Clear) Urine pH 6.0 (5.0-9.0) Urine Specific [place] 1.031 (1.001-1.035) Urine Protein 1+ (Negative) H Urine Ketones Negative (Negative) Urine Blood Negative /uL (Negative) Urine Nitrite Negative (Negative) Urine Bilirubin 1+ (Negative) Urine Urobilinogen 2 mg/dL (Negative) H Urine Leukocyte Esterase Negative /uL (Negative) Urine RBC 2 /hpf (0 - 3) Urine Microscopic WBC 2 /HPF (0-3) Urine Squamous Epithelial Cells Few /hpf (<5) Urine Calcium Oxalate Crystals Few (None Seen) Urine Bacteria None seen /hpf (None Seen) Urine Mucus Few (None Seen) Urine Glucose Normal mg/dL (Normal) Labs and/or images reviewed: Labs reviewed by me, Image(s) reviewed by me Assessment/Plan Assessment/Plan Sepsis secondary to biliary recent biliary stent placement: Completed seven day course of Augmentin cefnidir: Start Zosyn S/P biliary stenting on 12/22/2024 Acute abdominal pain Consult for GI Dr. Bobby Leon Liver mass status post biopsy 12/29/2024 Ejection fraction 25 percent Uncontrolled diabetes: Insulin sliding scale Hypertension Hypercholesterolemia Acute on chronic CHF exacerbation: Ejection fraction 25 percent Chronic current smoker Acute hypokalemia potassium 3.0: Replace potassium Patient is full code Advanced care planning time 20 minutes Time spent 70 minutes Condition guarded Patient unable to go give the details of his biopsy and stent placement Plan discussed with: Patient Date of Service: Jan 12, 2025 Billing Provider: WILFRED CALL MD Common Visit Codes: [id number] CARE 30-74 MIN WILFRED CALL MD Jan 12, 2025 12:14
--- NOTE | 2025-01-12 20:13 | DVHINCON2 ---
Date of service: Jan 12, [address] Dedrick Romero Reason for Consultation Abdominal pain with recent biliary stent History of Present Illness 74-year-old male presented with family at bedside, patient complained of abdominal pain for 2 days. Patient and family are poor historians, per ED notes discharge paperwork stated patient had ERCP with biliary stent removal and replacement on 12/22/2024. Also found a liver mass and it was biopsied on 12/29/2024. Echo noted EF to be 25%. Per patient he was to return to have ERCP in 6 weeks, as well as possible ICD placement. Denies any fever, fatigue, chest pain,nausea, vomiting, diarrhea, constipation, urinary symptoms, chills, or other associated symptoms or modifying factors at this time. Completed cefdinir and Augmentin [address] ABD/PELV showing gas in the gallbladder/ascites/ mass (see report). Patient admitted to telemetry for an tibiotics and further monitoring/testing. Past Medical History Past Medical History DM, HTN, HLD, CHF Past Surgical History Past Surgical History biliary stent Family History: Patient reports no known family medical history. Allergies: Coded Allergies: NO KNOWN ALLERGIES (Unverified , 01/11/25) Home Meds No Active Prescriptions or Reported Meds Current Medications Current Medications Medications (Trade) Dose Ordered Sig/Imkki Route PRN Reason Start Time Stop Time Status Last Admin Piperacillin Sod/ Tazobactam Sod 100 ml @ 25 mls/hr Q8HR IV 01/11/25 22:00 01/12/25 13:11 Atorvastatin Calcium (Lipitor) 10 mg HS PO 01/11/25 22:00 01/11/25 21:41 Sacubitril/ Valsartan (Entresto 24-26 Mg tab) 1 tab BID PO 01/11/25 22:00 01/12/25 10:22 Empaglifozin (Jardiance) 10 mg DAILY PO 01/12/25 10:00 01/12/25 10:25 Lactulose 30 ml DAILY PO 01/12/25 10:00 01/12/25 10:27 Furosemide (Lasix Tablet) 40 mg DAILY PO 01/12/25 10:00 01/12/25 10:22 Metoprolol Succinate (Toprol Xl) 25 mg DAILY PO 01/12/25 10:00 4/26/25 10:26 Pantoprazole Sodium (Protonix Tablet) 40 mg DAILY@0600 PO 01/12/25 06:00 01/12/25 05:25 Spironolactone (Aldactone) 25 mg DAILY PO 01/12/25 10:00 01/12/25 10:22 Vital Signs Vital Signs Date Time Temp Pulse Resp B/P (MAP) Pulse Ox O2 Delivery O2 Flow Rate FiO2 01/12/25 20:00 Room Air* 0 21 01/12/25 17:00 98.5 86 17 131/86 (101) 99 98.5 Physical Exam General Appearance: Alert, Oriented X3, Cooperative, No acute distress HEENT: Atraumatic, PERRLA, EOMI, Mucous membr. moist/pink;Slight scleral icterus Respiratory: Clear to auscultation, Normal air movement Cardiovascular: Regular rate, Normal S1, Normal S2, No murmurs Abdominal: Normal bowel sounds, Soft, No tenderness, No hepatospenomegaly, No masses, Other Extremities: No clubbing, No cyanosis, No edema, Normal pulses, No tenderness/swelling Skin: No rashes, No breakdown, No significant lesion Neuro: Normal gait, Normal speech, Strength at 5/5 X4 ext, Normal tone, Sensation intact, Cranial nerves 3-12 NL, Reflexes 2+ Psych/Mental Status: Mental status NL, Mood NL Labs/Diagnostic Data Labs Test 01/12/25 05:00 01/12/25 00:45 01/11/25 18:29 01/11/25 12:23 Range/Units White Blood Count 4.6 4.4-10.8 10^3/uL Red Blood Count 4.36 L 4.5-5.90 10^6/uL Hemoglobin 9.4 L 13.5-17.5 g/dL Hematocrit 28.9 #L 41.0-53.0 % Mean Corpuscular Volume 66.3 L 80.0-100.0 fL Mean Corpuscular Hemoglobin 21.5 L 28.0-32.0 pg Mean Corpuscular Hemoglobin Concent 32.4 32.0-36.0 g/dL Red Cell Distribution Width 21.5 H 11.8-14.3 % Platelet Count 195 140-450 10^3/uL Mean Platelet Volume 8.2 6.9-10.8 fL Neutrophils (%) (Auto) 70.9 37.0-80.0 % Lymphocytes (%) (Auto) 17.4 10.0-50.0 % Monocytes (%) (Auto) 10.1 0.0-12.0 % Eosinophils (%) (Auto) 0.8 0.0-7.0 % Basophils (%) (Auto) 0.8 0.0-2.0 % Neutrophils # (Auto) 3.2 1.6-8.6 10 ^3/uL Lymphocytes # (Auto) 0.8 0.4-5.4 10 ^3/uL Monocytes # (Auto) 0.5 0-1.3 10 ^3/uL Eosinophils # (Auto) 0 0-0.8 10 ^3/uL Basophils # (Auto) 0 0-0.2 10 ^3/uL Nucleated Red Blood Cells 0.2 % Platelet Estimate Adequate Hypochromasia (manual) Slight Anisocytosis (manual) Slight Microcytosis Slight Target Cells Few Sodium Level 142 136-145 mmol/L Potassium Level 3.0 L 3.5-5.1 mmol/L Chloride Level 109 H 98-107 mmol/L Carbon Dioxide Level 24 20-31 mmol/L Anion Gap 9 5-15 Blood Urea Nitrogen 13 9-23 mg/dL Creatinine 0.89 0.700-1.30 mg/dL Glomerular Filtration Rate Calc 90 >90 mL/min BUN/Creatinine Ratio 14.6 10.0-20.0 Serum Glucose 88 74-106 mg/dL Calcium Level 8.9 8.7-10.4 mg/dL Total Bilirubin 2.1 H 0.2-1.0 mg/dL Aspartate Amino Transferase (AST) 46 H 13-40 U/L Alanine Aminotransferase (ALT) 28 7-40 U/L Alkaline Phosphatase 350 H 46-116 U/L Total Protein 7.2 5.7-8.2 g/dL Albumin 3.1 L 3.2-4.8 g/dL Lactic Acid Level 1.2 0.4-2.0 mmol/L Prothrombin Time 11.4 9.3-11.8 sec Prothrombin Time INR 1.08 0.9-1.15 Urine Color Yellow Yellow Urine Clarity Clear Clear Urine pH 6.0 5.0-9.0 Urine Specific [place] 1.031 1.001-1.035 Urine Protein 1+ H Negative Urine Ketones Negative Negative Urine Blood Negative Negative /uL Urine Nitrite Negative Negative Urine Bilirubin 1+ Negative Urine Urobilinogen 2 H Negative mg/dL Urine Leukocyte Esterase Negative Negative /uL Urine RBC 2 0 - 3 /hpf Urine Microscopic WBC 2 0-3 /HPF Urine Squamous Epithelial Cells Few <5 /hpf Urine Calcium Oxalate Crystals Few None Seen Urine Bacteria None seen None Seen /hpf Urine Mucus Few None Seen Urine Glucose Normal Normal mg/dL Test 01/11/25 11:03 Range/Units Troponin I High Sensitivity 12 </=54 ng/L Lipase 30 12-53 U/L CT SCAN CHEST ABD PELVIS IMPRESSION: 1. Mass in the upper abdomen with enhancement of its periphery and central hypo enhancement/non enhancement, abutting the caudate lobe of the liver, but periphery of the mass appears to enhance greater than the liver parenchyma. Possible liver mass or mass adjacent to the liver. Malignancy not excluded. Correlate with clinical findings and clinical history. 2. Common bile duct stent in place as described above. 3. Gas within the gallbladder may be due to recent intervention associated with the bile duct stent placement. Infectious/inflammatory etiology not excluded in the appropriate clinical setting. Cholecystic fluid may be due to the ascites. Correlate with clinical findings. 4. Moderate ascites and anasarca. 5. Small right pleural effusion. 6. Pancreatic duct measures at the upper limits of normal in diameter. 7. Cirrhotic liver morphology. 8. Additional findings as detailed above. Problems(with codes): (1) Small pleural effusion (2) Postoperative abdominal pain (3) Abnormal finding on CT scan (4) Liver mass (5) Liver cirrhosis Plan/Recommendation Assessment plan Patient has postop abdominal pain S/PERCP and stent placement; no evidence of pancreatitis patient has lactic acidosis and mild elevation liver enzymes possibly related to bile duct infection or cholangitis Lactic acidosis is improving with IV antibiotics Patient has a liver mass suspicious for possible hepatocellular carcinoma S/P recent biopsy Continue broad-spectrum antibiotics, IV fluid hydration, IV PPI Pain control;Patient is currently afebrile Monitor labs check CEA and serum alpha fetoprotein 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
[2025-01-13] VITALS (8 sets, daily range): BP systolic 121–150; BP diastolic 71–93; PULSE 74–84; RESP 16–20; TEMP 97.7–98.1; O2SAT 96–100
[2025-01-13 07:39] LABS: Basophils # (auto) 0.1 10 ^3/uL (0-0.2); Basophils % (auto) 1.2 % (0.0-2.0); Eosinophils # (auto) 0 10 ^3/uL (0-0.8); Eosinophils % (auto) 0.9 % (0.0-7.0); Hemoglobin 10.1 g/dL (13.5-17.5); Lymphocytes # (auto) 0.9 10 ^3/uL (0.4-5.4); Lymphocytes % (auto) 17.5 % (10.0-50.0); Mean Corpuscular Hemoglobin 21.2 pg (28.0-32.0); Mean Corpuscular Hgb Conc. 31.6 g/dL (32.0-36.0); Monocytes # (auto) 0.6 10 ^3/uL (0-1.3); Monocytes % (auto) 10.5 % (0.0-12.0); Neutrophils # (auto) 3.7 10 ^3/uL (1.6-8.6); Neutrophils % (auto) 69.9 % (37.0-80.0); Nucleated Red Blood Cells % 0.4 %; Platelet Count (auto) 195 10^3/uL (140-450); Red Blood Cells 4.78 10^6/uL (4.5-5.90); White Blood Cell 5.3 10^3/uL (4.4-10.8)
[2025-01-13 07:59] LABS: Alanine Aminotransferase 23 U/L (7-40); Albumin 3.3 g/dL (3.2-4.8); Alkaline Phosphatase 406 U/L (46-116); Anion Gap 11 (5-15); Aspartate Aminotransferase 46 U/L (13-40); BUN/Creatinine Ratio 12.2 (10.0-20.0); Bilirubin, Total 2.1 mg/dL (0.2-1.0); Blood Urea Nitrogen 12 mg/dL (9-23); Calcium 9.2 mg/dL (8.7-10.4); Carbon Dioxide 22 mmol/L (20-31); Chloride 108 mmol/L (98-107); Glucose 98 mg/dL (74-106); Potassium 3.1 mmol/L (3.5-5.1); Sodium 141 mmol/L (136-145); Total Protein 7.8 g/dL (5.7-8.2)
--- NOTE | 2025-01-13 13:44 | DVHPN2 ---
Reviewed: Care Plan, H&P, Labs, Medications, Previous Orders, Radiology Changes from previous H/P or p: No Changes Eyes: No Pain, No Vision change, No Conjunctivae inflammation, No Eyelid inflammation, No Other, No Redness ENT: No Ear pain, No Ear discharge, No Nose pain, No Nose discharge, No Nose congestion, No Mouth pain, No Mouth swelling, No Throat pain, No Throat swelling, No Other Cardiovascular: No Chest Pain, No Palpitations, No Orthopnea, No Paroxysmal Noc. Dyspnea, No Edema, No Lt Headedness, No Other Respiratory: No Cough, No Dry, No Shortness of breath, No SOB with excertion, No Wheezing, No Hemoptysis, No Pleuritic Pain, No Sputum, No Other Gastrointestinal: Abdominal Pain Genitourinary: No Dysuria, No Frequency, No Incontinence, No Hematuria, No Retention, No Other Musculoskeletal: No other, No neck pain, No shoulder pain, No arm pain, No back pain, No hand pain, No leg pain, No foot pain Skin: No Rash, No Lesions, No Jaundice, No Bruising, No Other Objective Vitals Vital Signs Date Time Temp Pulse Resp B/P (MAP) Pulse Ox O2 Delivery O2 Flow Rate FiO2 01/13/25 09:29 98.1 84 19 146/93 (110) 100 98.1 01/13/25 08:00 Room Air* 0 21 Intake/Output Intake and Output 01/13/25 07:00 Intake Total 1720 ml Output Total 600 ml Balance 1120 ml Intake Oral 1420 ml IV Total 300 ml Output Urine Total 600 ml # Voids 4 # Bowel Movements 2 Medications Current Medications Medications Dose Ordered Sig/Mikki Route Start Time Stop Time Status Last Admin Dose Admin Ondansetron HCl 4 mg Q4HP PRN IV 01/11/25 18:30 Docusate Sodium 100 mg BIDPRN PRN PO 01/11/25 18:30 01/12/25 10:21 100 MG Morphine Sulfate 2 mg Q4HPRN PRN IV 01/11/25 18:30 01/13/25 01:07 2 MG Nitroglycerin 0.4 mg Q5MINP PRN SL 01/11/25 18:30 Morphine Sulfate 2 mg Q30M PRN IV 01/11/25 18:30 Piperacillin Sod/ Tazobactam Sod 100 ml @ 25 mls/hr Q8HR IV 01/11/25 22:00 01/13/25 05:54 25 MLS/HR Atorvastatin Calcium 10 mg HS PO 01/11/25 22:00 01/12/25 21:05 10 MG Sacubitril/ Valsartan 1 tab BID PO 01/11/25 22:00 01/13/25 09:26 1 TAB Empaglifozin 10 mg DAILY PO 01/12/25 10:00 01/13/25 09:27 10 MG Lactulose 30 ml DAILY PO 01/12/25 10:00 01/13/25 09:26 30 ML Furosemide 40 mg DAILY PO 01/12/25 10:00 01/13/25 09:27 40 MG Metoprolol Succinate 25 mg DAILY PO 01/12/25 10:00 01/13/25 09:28 25 MG Pantoprazole Sodium 40 mg DAILY@0600 PO 01/12/25 06:00 01/13/25 05:54 40 MG Spironolactone 25 mg DAILY PO 01/12/25 10:00 01/13/25 09:27 25 MG Laboratory Results Laboratory Tests 01/13/25 06:28 Chemistry Test 01/13/25 06:28 Albumin 3.3 g/dL (3.2-4.8) Calcium Level 9.2 mg/dL (8.7-10.4) Total Protein 7.8 g/dL (5.7-8.2) LFT Test 01/13/25 06:28 Alanine Aminotransferase (ALT) 23 U/L (7-40) Alkaline Phosphatase 406 U/L (46-116) H Aspartate Amino Transferase (AST) 46 U/L (13-40) H Total Bilirubin 2.1 mg/dL (0.2-1.0) H Urinalysis Test 01/11/25 12:23 Urine Color Yellow (Yellow) Urine Clarity Clear (Clear) Urine pH 6.0 (5.0-9.0) Urine Specific [place] 1.031 (1.001-1.035) Urine Protein 1+ (Negative) H Urine Ketones Negative (Negative) Urine Blood Negative /uL (Negative) Urine Nitrite Negative (Negative) Urine Bilirubin 1+ (Negative) Urine Urobilinogen 2 mg/dL (Negative) H Urine Leukocyte Esterase Negative /uL (Negative) Urine RBC 2 /hpf (0 - 3) Urine Microscopic WBC 2 /HPF (0-3) Urine Squamous Epithelial Cells Few /hpf (<5) Urine Calcium Oxalate Crystals Few (None Seen) Urine Bacteria None seen /hpf (None Seen) Urine Mucus Few (None Seen) Urine Glucose Normal mg/dL (Normal) Labs and/or images reviewed: Labs reviewed by me, Image(s) reviewed by me Assessment/Plan Assessment/Plan Sepsis secondary to biliary recent biliary stent placement: Completed seven day course of Augmentin cefnidir: Start Zosyn S/P biliary stenting on 12/22/2024 Acute abdominal pain Consult for GI Dr. Bobby Leon appreciated, patient to follow up with the GI Dr who did the procedures Liver mass status post biopsy 12/29/2024 Ejection fraction 25 percent Uncontrolled diabetes: Insulin sliding scale Hypertension Hypercholesterolemia Acute on chronic CHF exacerbation: Ejection fraction 25 percent Chronic current smoker Acute hypokalemia potassium 3.0: Replace potassium Patient is full code Advanced care planning time 20 minutes Time spent 50 minutes Condition guarded Spoke to the son on the phone. 20 minutes Plan discussed with: Patient Date of Service: Jan 13, 2025 Billing Provider: WILFRED CALL MD Common Visit Codes: [id number] INP/OBS CARE(HIGH) Secondary Visit Codes: [id number] CARE PLAN 30 MINUTES WILFRED CALL MD Jan 13, 2025 13:44
--- NOTE | 2025-01-13 14:50 | DVHPN2 ---
Progress Note - Dictate Date Seen: Jan 13, 2025 Medical Necessity Reason Pt with a Central, PICC or Fol: No Subjective No new complaints Patient is sitting up at the edge of the bed Patient is a poor historian and does not recall where his biliary stent was placed, he believes it was a month ago Sepsis secondary to biliary recent biliary stent placement: Completed seven day course of Augmentin cefnidir: Start Zosyn S/P biliary stenting on 12/22/2024 Liver mass status post biopsy 12/29/2024 Ejection fraction 25 percent vital signs Vital Sign Date Time Temp Pulse Resp B/P (MAP) Pulse Ox O2 Delivery O2 Flow Rate FiO2 01/13/25 13:30 98.0 79 20 121/71 (88) 99 98.0 01/13/25 08:00 Room Air* 0 21 Total Intake and Output 01/12/25 01/12/25 01/13/25 14:59 22:59 06:59 Intake Total 100 ml 600 ml 1020 ml Output Total 600 ml Balance 100 ml 600 ml 420 ml medications Current Medications Medications Dose Ordered Sig/Mikki Route Start Time Stop Time Status Last Admin Dose Admin Ondansetron HCl 4 mg Q4HP PRN IV 01/11/25 18:30 Docusate Sodium 100 mg BIDPRN PRN PO 01/11/25 18:30 01/12/25 10:21 100 MG Morphine Sulfate 2 mg Q4HPRN PRN IV 01/11/25 18:30 01/13/25 01:07 2 MG Nitroglycerin 0.4 mg Q5MINP PRN SL 01/11/25 18:30 Morphine Sulfate 2 mg Q30M PRN IV 01/11/25 18:30 Piperacillin Sod/ Tazobactam Sod 100 ml @ 25 mls/hr Q8HR IV 01/11/25 22:00 01/13/25 05:54 25 MLS/HR Atorvastatin Calcium 10 mg HS PO 01/11/25 22:00 01/12/25 21:05 10 MG Sacubitril/ Valsartan 1 tab BID PO 01/11/25 22:00 01/13/25 09:26 1 TAB Empaglifozin 10 mg DAILY PO 01/12/25 10:00 01/13/25 09:27 10 MG Lactulose 30 ml DAILY PO 01/12/25 10:00 01/13/25 09:26 30 ML Furosemide 40 mg DAILY PO 01/12/25 10:00 01/13/25 09:27 40 MG Metoprolol Succinate 25 mg DAILY PO 01/12/25 10:00 01/13/25 09:28 25 MG Pantoprazole Sodium 40 mg DAILY@0600 PO 01/12/25 06:00 01/13/25 05:54 40 MG Spironolactone 25 mg DAILY PO 01/12/25 10:00 01/13/25 09:27 25 MG objective General Appearance: Alert, Oriented X3, Cooperative, No acute distress HEENT: Atraumatic, PERRLA, EOMI, Mucous membr. moist/pink;Slight scleral icterus Respiratory: Clear to auscultation, Normal air movement Cardiovascular: Regular rate, Normal S1, Normal S2, No murmurs Abdominal: Normal bowel sounds, Soft, No tenderness, No hepatospenomegaly, No masses, Other Extremities: No clubbing, No cyanosis, No edema, Normal pulses, No tenderness/swelling Skin: No rashes, No breakdown, No significant lesion Neuro: Normal gait, Normal speech, Strength at 5/5 X4 ext, Normal tone, Sensation intact, Cranial nerves 3-12 NL, Reflexes 2+ Psych/Mental Status: Mental status NL, Mood NL laboratory and microbiology Laboratory Tests 01/13/25 06:28 Test 01/13/25 06:28 Range/Units Serum Glucose 98 74-106 mg/dL Problems(with codes): (1) Small pleural effusion (2) Postoperative abdominal pain (3) Elevated lactic acid level (4) Abnormal finding on CT scan (5) Liver mass (6) Ascites Prognosis Plan Patient has abdominal pain S/P ERCP and stent placement; S/P liver biopsy no evidence of pancreatitis patient has lactic acidosis and mild elevation liver enzymes possibly related to bile duct infection or cholangitis Lactic acidosis is improving with IV antibiotics Patient has a liver mass suspicious for possible hepatocellular carcinoma S/P recent biopsy Continue broad-spectrum antibiotics, IV fluid hydration, IV PPI Pain control;Patient is currently afebrile Monitor labs check CEA and serum alpha fetoprotein Follow up with industrial relations officer who performed the ERCP for biliary stent removal and replacement as scheduled Plan discussed with: Patient KENIA PARDO MD Jan 13, 2025 14:50
[2025-01-14] VITALS (7 sets, daily range): BP systolic 117–144; BP diastolic 61–85; PULSE 76–85; RESP 17–18; TEMP 97.3–98.6; O2SAT 90–100
[2025-01-14] MEDS: HYDROcodone-ACET 7.5/325MG TAB PO ONE (01:32)
[2025-01-14 11:05] LABS: Hepatitis A Total Antibody Positive (Negative); Hepatitis B Surface Antibody Positive (Negative); Hepatitis B Surface Antigen Negative (Negative)
[2025-01-14 11:08] LABS: Hepatitis B Core Total AB Positive (Negative); Hepatitis C Antibody Positive (Negative)
[2025-01-14] MEDS ORDERED: ZOFR4T PO (12:53)
[2025-01-14] MEDS ORDERED: TRAM-626 PO (12:53)
[2025-01-14] MEDS ORDERED: CEFD300C2 PO (12:58)
--- NOTE | 2025-01-14 13:03 | DVHDS2 ---
Discharge Summary Date of Admission Jan 11, 2025 at 18:23 Date of Discharge: Jan 14, 2025 Admitting Diagnosis ABDOMINAL PAIN NAUSEA Wounds: None Labs/Diagnostic Data: Laboratory Results Test 01/13/25 06:28 01/12/25 05:00 01/12/25 00:45 01/11/25 18:29 White Blood Count 5.3 10^3/uL (4.4-10.8) Red Blood Count 4.78 10^6/uL (4.5-5.90) Hemoglobin 10.1 g/dL (13.5-17.5) Hematocrit 32.0 % (41.0-53.0) Mean Corpuscular Volume 67.0 fL (80.0-100.0) Mean Corpuscular Hemoglobin 21.2 pg (28.0-32.0) Mean Corpuscular Hemoglobin Concent 31.6 g/dL (32.0-36.0) Red Cell Distribution Width 21.0 % (11.8-14.3) Platelet Count 195 10^3/uL (140-450) Mean Platelet Volume 8.5 fL (6.9-10.8) Neutrophils (%) (Auto) 69.9 % (37.0-80.0) Lymphocytes (%) (Auto) 17.5 % (10.0-50.0) Monocytes (%) (Auto) 10.5 % (0.0-12.0) Eosinophils (%) (Auto) 0.9 % (0.0-7.0) Basophils (%) (Auto) 1.2 % (0.0-2.0) Neutrophils # (Auto) 3.7 10 ^3/uL (1.6-8.6) Lymphocytes # (Auto) 0.9 10 ^3/uL (0.4-5.4) Monocytes # (Auto) 0.6 10 ^3/uL (0-1.3) Eosinophils # (Auto) 0 10 ^3/uL (0-0.8) Basophils # (Auto) 0.1 10 ^3/uL (0-0.2) Nucleated Red Blood Cells 0.4 % Sodium Level 141 mmol/L (136-145) Potassium Level 3.1 mmol/L (3.5-5.1) Chloride Level 108 mmol/L (98-107) Carbon Dioxide Level 22 mmol/L (20-31) Anion Gap 11 (5-15) Blood Urea Nitrogen 12 mg/dL (9-23) Creatinine 0.98 mg/dL (0.700-1.30) Glomerular Filtration Rate Calc 81 mL/min (>90) BUN/Creatinine Ratio 12.2 (10.0-20.0) Serum Glucose 98 mg/dL (74-106) Calcium Level 9.2 mg/dL (8.7-10.4) Total Bilirubin 2.1 mg/dL (0.2-1.0) Aspartate Amino Transferase (AST) 46 U/L (13-40) Alanine Aminotransferase (ALT) 23 U/L (7-40) Alkaline Phosphatase 406 U/L (46-116) Total Protein 7.8 g/dL (5.7-8.2) Albumin 3.3 g/dL (3.2-4.8) Carcinoembryonic Antigen 1.15 ng/mL (<=5.0) Hepatitis A Antibody Total Positive (Negative) Hepatitis B Surface Antigen Negative (Negative) Hepatitis B Surface Antibody Positive (Negative) Hepatitis B Core Total Antibody Positive (Negative) Hepatitis C Antibody Positive (Negative) Platelet Estimate Adequate Hypochromasia (manual) Slight Anisocytosis (manual) Slight Microcytosis Slight Target Cells Few Lactic Acid Level 1.2 mmol/L (0.4-2.0) Prothrombin Time 11.4 sec (9.3-11.8) Prothrombin Time INR 1.08 (0.9-1.15) Test 01/11/25 12:23 01/11/25 11:03 Urine Color Yellow (Yellow) Urine Clarity Clear (Clear) Urine pH 6.0 (5.0-9.0) Urine Specific [place] 1.031 (1.001-1.035) Urine Protein 1+ (Negative) Urine Ketones Negative (Negative) Urine Blood Negative /uL (Negative) Urine Nitrite Negative (Negative) Urine Bilirubin 1+ (Negative) Urine Urobilinogen 2 mg/dL (Negative) Urine Leukocyte Esterase Negative /uL (Negative) Urine RBC 2 /hpf (0 - 3) Urine Microscopic WBC 2 /HPF (0-3) Urine Squamous Epithelial Cells Few /hpf (<5) Urine Calcium Oxalate Crystals Few (None Seen) Urine Bacteria None seen /hpf (None Seen) Urine Mucus Few (None Seen) Urine Glucose Normal mg/dL (Normal) Troponin I High Sensitivity 12 ng/L (</=54) Lipase 30 U/L (12-53) Other Laboratory Tests 01/13/25 06:28 Brief Hx & Hospital Course: 74-year-old male with a history of liver cancer under treatment at [facility] recently relocated to [facility] to stay with the son also had a recent biliary stent placed came in for generalized weakness and abdominal pain. Patient was on cefdinir and Augmentin for seven days before coming to the hospital. Patient was placed on Zosyn patient had biliary stent placed on 12/22/2024. Acute pancreatitis was ruled out ejection fraction 25 percent history of hypertension hypercholesterolemia diabetes CHF chronic current smoker. Hypokalemia resolved with potassium replacement. GI Dr. Bobby Leon consult was consulted and advised to follow up with the GI Dr. who had done the procedures. Patient's son Kevin JR at the bedside and discussed with him about the poor prognosis . Patient discharged home. The son was advised to take him to [facility] for further care. At the present time they are not in favor of hospice. Prescription transmitted to the pharmacy. General condition very poor but stable at the time of discharge Consults/Reason for consult GI Dr. Bobby Leon Operations or Procedures CT abdomen pelvis without contrast Condition at Discharge: Fair Final Diagnosis/Problems List Sepsis secondary to biliary recent biliary stent placement: Completed seven day course of Augmentin cefnidir: Start Zosyn S/P biliary stenting on 12/22/2024 Acute abdominal pain Consult for GI Dr. Bobby Leon appreciated, patient to follow up with the GI Dr who did the procedures Liver mass status post biopsy 12/29/2024 Ejection fraction 25 percent Uncontrolled diabetes: Insulin sliding scale Hypertension Hypercholesterolemia Acute on chronic CHF exacerbation: Ejection fraction 25 percent Chronic current smoker Acute hypokalemia potassium 3.0: Replace potassium Patient is full code Discharge Disposition: Home Discharge Instruct/Medications Diet: Cardiac 2g Na,low cholest Activity: Light activity Follow Up/Referral: You are advised to go to [facility] for further care with the liver biopsy report done at [facility] Continue all previous home medication Medications: Zofran Tramadol Transmitted to the pharmacy 36 (TIME TAKEN DISCHARGE SUMMARY 36 MTS) Discharge Statement: "Patient was advised to return to the ER or call 911 if any headaches, dizziness, shortness of breath, chest pain, abdominal pain, bleeding, fevers, or worsening of medical condition. Patient was counseled about treatment plan, medications, possible side effects, patientverbalized understanding. All questions were answered to the best of my ability. This discharge took greater then 30 minutes in planning, reviewing documentation, counseling the patient, and discussing with other team members." ASSESSMENT ASSESSMENT Hospital Course No significant improvement Assessment Sepsis secondary to biliary recent biliary stent placement: Completed seven day course of Augmentin cefnidir: Start Zosyn S/P biliary stenting on 12/22/2024 Acute abdominal pain Consult for GI Dr. Bobby Leon appreciated, patient to follow up with the GI Dr who did the procedures Liver mass status post biopsy 12/29/2024 Ejection fraction 25 percent Uncontrolled diabetes: Insulin sliding scale Hypertension Hypercholesterolemia Acute on chronic CHF exacerbation: Ejection fraction 25 percent Chronic current smoker Acute hypokalemia potassium 3.0: Replace potassium Patient is full code Date of Service: Jan 14, 2025 Billing Provider: WILFRED CALL MD Common Visit Codes: [id number] DISCH DAY >30min WILFRED CALL MD Jan 14, 2025 13:03
[2025-01-14 13:54] LABS: Basophils # (auto) 0 10 ^3/uL (0-0.2); Basophils % (auto) 0.8 % (0.0-2.0); Eosinophils # (auto) 0.1 10 ^3/uL (0-0.8); Eosinophils % (auto) 1.4 % (0.0-7.0); Hemoglobin 11.5 g/dL (13.5-17.5); Lymphocytes # (auto) 1.4 10 ^3/uL (0.4-5.4); Lymphocytes % (auto) 23.1 % (10.0-50.0); Mean Corpuscular Hemoglobin 21.5 pg (28.0-32.0); Mean Corpuscular Hgb Conc. 30.9 g/dL (32.0-36.0); Mean Corpuscular Volume 69.4 fL (80.0-100.0); Monocytes # (auto) 0.4 10 ^3/uL (0-1.3); Monocytes % (auto) 6.9 % (0.0-12.0); Neutrophils # (auto) 4.1 10 ^3/uL (1.6-8.6); Neutrophils % (auto) 67.8 % (37.0-80.0); Nucleated Red Blood Cells % 0.3 %; Platelet Count (auto) 200 10^3/uL (140-450); Red Blood Cells 5.34 10^6/uL (4.5-5.90); Red Cell Distribution Width 21.5 % (11.8-14.3); White Blood Cell 6.1 10^3/uL (4.4-10.8)
[2025-01-14 14:07] LABS: Alanine Aminotransferase 38 U/L (7-40); Albumin 3.7 g/dL (3.2-4.8); Anion Gap 13 (5-15); Blood Urea Nitrogen 11 mg/dL (9-23); Calcium 9.5 mg/dL (8.7-10.4); Sodium 139 mmol/L (136-145)
[2025-01-14 14:10] LABS: Alkaline Phosphatase 481 U/L (46-116); Aspartate Aminotransferase 66 U/L (13-40); Bilirubin, Total 2.5 mg/dL (0.2-1.0); Carbon Dioxide 19 mmol/L (20-31); Chloride 107 mmol/L (98-107); Glucose 107 mg/dL (74-106); Potassium 3.5 mmol/L (3.5-5.1)
--- NOTE | 2025-01-14 21:39 | DVHPN2 ---
Progress Note - Dictate Date Seen: Jan 14, 2025 Medical Necessity Reason Pt with a Central, PICC or Fol: No Subjective No new complaints Patient is sitting up at the edge of the bed Sepsis secondary to biliary recent biliary stent placement: Completed seven day course of Augmentin cefnidir: Start Zosyn S/P biliary stenting on 12/22/2024 at [facility] Liver mass status post biopsy 12/29/2024 Ejection fraction 25 percent Hepatitis-C antibody positive vital signs Vital Sign Date Time Temp Pulse Resp B/P (MAP) Pulse Ox O2 Delivery O2 Flow Rate FiO2 01/14/25 17:00 98.1 79 17 144/82 (102) 100 98.1 01/14/25 08:10 Room Air* 0 N/A Nasal Cannula* Total Intake and Output 01/13/25 01/13/25 01/14/25 15:00 23:00 07:00 Intake Total 100 ml 700 ml Output Total 670 ml 900 ml Balance 100 ml -670 ml -200 ml objective General Appearance: Alert, Oriented X3, Cooperative, No acute distress HEENT: Atraumatic, PERRLA, EOMI, Mucous membr. moist/pink;Slight scleral icterus Respiratory: Clear to auscultation, Normal air movement Cardiovascular: Regular rate, Normal S1, Normal S2, No murmurs Abdominal: Normal bowel sounds, Soft, No tenderness, No hepatospenomegaly, No masses, Other Extremities: No clubbing, No cyanosis, No edema, Normal pulses, No tenderness/swelling Skin: No rashes, No breakdown, No significant lesion Neuro: Normal gait, Normal speech, Strength at 5/5 X4 ext, Normal tone, Sensation intact, Cranial nerves 3-12 NL, Reflexes 2+ Psych/Mental Status: Mental status NL, Mood NL laboratory and microbiology Laboratory Tests 01/14/25 13:30 Test 01/14/25 13:30 Range/Units Serum Glucose 107 H 74-106 mg/dL Problems(with codes): (1) Hepatitis C (2) Hepatic cancer (3) Small pleural effusion (4) Postoperative abdominal pain (5) Abnormal finding on CT scan (6) Liver mass (7) Ascites (8) Liver cirrhosis Prognosis Assessment and plan Discharge planning is in progress Patient will follow up with his hairspring vibrator place the stent There is concern worsening cholestasis stasis and liver enzymes due to obstructive biliary disease Advance diet as tolerated, stool softeners as needed, continue antibiotics Plan discussed with: Patient, Other (Dr Monteiro) KENIA PARDO MD Jan 14, 2025 21:39
== END 2025-01-14 17:00 | disposition home or self-care (01) | DRG 919 ==
LOC: ER 09:57 → OVERFLOW 18:23 → TELE-WESTW 21:20
PROVIDERS: ADMIT Registered Nurse General Practice; ATTEND Registered Nurse General Practice
DX: T85.79XA Infection and inflammatory reaction due to other internal prosthetic devices, implants and grafts, initial encounter (principal); A41.9 Sepsis, unspecified organism; I50.23 Acute on chronic systolic (congestive) heart failure; E87.20 Acidosis, unspecified; R18.8 Other ascites; J90 Pleural effusion, not elsewhere classified; R16.0 Hepatomegaly, not elsewhere classified; E11.65 Type 2 diabetes mellitus with hyperglycemia; E78.00 Pure hypercholesterolemia, unspecified; E87.6 Hypokalemia; F17.200 Nicotine dependence, unspecified, uncomplicated; I11.0 Hypertensive heart disease with heart failure; K74.60 Unspecified cirrhosis of liver; Z79.899 Other long term (current) drug therapy; K83.9 Disease of biliary tract, unspecified; B19.20 Unspecified viral hepatitis C without hepatic coma
CPT/HCPCS: 36415; 74177; 80053; 81001; 82105; 82378; 83605; 83690; 84484; 85025; 85610; 86301; 86704; 86706; 86708; 86803; 87040; 87340; 93005; G0378; J2543

== ENCOUNTER 2025-01-23 21:25 | Inpatient (IN) | payer MEDICARE, MEDICAID ==
[~2025-01-23] VITALS: Ht 195.6 cm; Wt 86.8 kg
[~2025-01-23 21:25] MED LIST: CEFD300C2 PO; TRAM-626 PO; ZOFR4T PO
--- NOTE | 2025-01-23 21:48 | ED.PDOC ---
HPI Comments 74 year old male presents to the ED with a chief complaint of chest pain onset today (01/23/25) around 07:00. Patient woke up today around 07:00 experiencing chest pain, described as pressure sensation as well as shortness of breath. For the past 3 days, patient noticed bilateral lower leg swelling. PMHx CHF. Denies headache, dizziness, nausea, vomiting, diarrhea, dysuria, fever, chills. No other symptoms or modifying factors present at this time. 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 No acute distress. Skin: Skin in warm, dry and intact. Appropriate color for ethnicity. HEENT: The head is normocephalic and atraumatic. Conjunctivae are clear without exudates or hemorrhage. Sclera is non-icteric. EOM are intact. No signs of nystagmus. Eyelids are normal in appearance without swelling or lesions. Oral mucosa is pink and moist Neck: The neck is supple with normal range of motion. No JVD. Cardiac: Heart rate and rhythm are normal. No murmurs, gallops, or rubs are auscultated. Respiratory: No signs of respiratory distress. Rales at bilateral bases. No wheezing. Abdominal: Abdomen is soft, non-tender without distention. Bowel sounds are present and normoactive in all four quadrants. Extremities: Bilateral lower extremity pitting edema Neurological: The patient is awake, alert and oriented to person, place, and time with normal speech. Speech is clear. There is no facial asymmetry. Psychiatric: Appropriate mood and affect. Good judgement and insight. Review of Systems: REVIEW OF SYSTEMS: No fever, no chills, or fatigue HEENT: No sore throat, no earache, no congestion, no neck pain. Cardiac: Positive chest pain. No palpitations. Lungs: Positive shortness of breath, no cough. GI: No nausea, no vomiting, no diarrhea, no constipation, no abdominal pain : No dysuria, frequency, or urgency. No hematuria. Musculoskeletal: No joint pain , no joint swelling, positive bilateral lower extremity edema. Skin: No rash, no itching. Neuro: No headache, no dizziness, no weakness Past Medical History PAST MEDICAL HISTORY: CHF Surgical History: PTCA Family History Family History: Reviewed,noncontributory to illness, No family hx of Cancer, No family hx of DM, No family hx of Heart mariam, No family hx of HTN, No family hx ofKidney mariam, No family hx of Liver mariam, No family hx of Lung mariam, No family hx of Stroke Social History Smoker: Non-Smoker Alcohol: Denies ETOH Use Drugs: Denies Drug Use Lives In: Home EKG EKG : Comments No STEMI Was a procedure done? Was a procedure done?: No CP Differential Dx Differential Diagnosis: Heart Failure, Other Differential Diagnosis: CHF, HTN Accelerated, HTN Encephalopathy Differential Diagnosis: Angina, Chest Wall Pain, Cholelithiasis, Costochondr itis, Gastritis, Pericarditis, Pneumonia, Pneumothorax, Pulmonary Embolus, Other X-Ray, Labs, Meds, VS Vital Signs Date Time Temp Pulse Resp B/P (MAP) Pulse Ox O2 Delivery O2 Flow Rate FiO2 01/24/25 00:09 99.1 97 14 129/76 (93) 99 99.1 01/23/25 22:22 95 01/23/25 21:31 101 01/23/25 21:30 99 Nasal Cannula* 2 28 01/23/25 21:30 98.0 99 22 133/84 (100) 99 98.0 Lab Test 01/23/25 22:14 01/23/25 21:35 Range/Units Troponin I High Sensitivity 24 24 </=54 ng/L White Blood Count 7.0 4.4-10.8 10^3/uL Red Blood Count 4.85 4.5-5.90 10^6/uL Hemoglobin 10.5 L 13.5-17.5 g/dL Hematocrit 32.7 L 41.0-53.0 % Mean Corpuscular Volume 67.5 L 80.0-100.0 fL Mean Corpuscular Hemoglobin 21.6 L 28.0-32.0 pg Mean Corpuscular Hemoglobin Concent 32.0 32.0-36.0 g/dL Red Cell Distribution Width 20.7 H 11.8-14.3 % Platelet Count 235 140-450 10^3/uL Mean Platelet Volume 8.3 6.9-10.8 fL Neutrophils (%) (Auto) 81.3 H 37.0-80.0 % Lymphocytes (%) (Auto) 10.4 10.0-50.0 % Monocytes (%) (Auto) 7.1 0.0-12.0 % Eosinophils (%) (Auto) 0.7 0.0-7.0 % Basophils (%) (Auto) 0.5 0.0-2.0 % Neutrophils # (Auto) 5.7 1.6-8.6 10 ^3/uL Lymphocytes # (Auto) 0.7 0.4-5.4 10 ^3/uL Monocytes # (Auto) 0.5 0-1.3 10 ^3/uL Eosinophils # (Auto) 0.1 0-0.8 10 ^3/uL Basophils # (Auto) 0 0-0.2 10 ^3/uL Nucleated Red Blood Cells 0.1 % Sodium Level 141 136-145 mmol/L Potassium Level 3.7 3.5-5.1 mmol/L Chloride Level 108 H 98-107 mmol/L Carbon Dioxide Level 23 20-31 mmol/L Anion Gap 10 5-15 Blood Urea Nitrogen 14 9-23 mg/dL Creatinine 0.91 0.700-1.30 mg/dL Glomerular Filtration Rate Calc 89 >90 mL/min BUN/Creatinine Ratio 15.4 10.0-20.0 Serum Glucose 99 74-106 mg/dL Calcium Level 8.8 8.7-10.4 mg/dL Total Bilirubin 1.8 H 0.2-1.0 mg/dL Aspartate Amino Transferase (AST) 47 H 13-40 U/L Alanine Aminotransferase (ALT) 30 7-40 U/L Alkaline Phosphatase 511 H 46-116 U/L B-Type Natriuretic Peptide > 5000.00 0-100 pg/mL Total Protein 8.0 5.7-8.2 g/dL Albumin 3.4 3.2-4.8 g/dL IMPRESSION: Bibasilar atelectasis/consolidation greater on the right side. Images Reviewed?: Images reviewed and evaluated by me (Independent interpretation of chest x-ray: Right lower lobe infiltrate) Time of 1ST Reevaluation: 22:10 Reevaluation 1ST: Unchanged Patient Education/Counseling: Need For Follow Up Family Education/Counseling: No Family Present Departure 1 Departure Time of Disposition: 00:13 Impression: Primary Impression: Chest pain Additional Impression: CHF exacerbation Disposition: ADMITTED INPATIENT Condition: Stable Comments 74-year-old male with CHF exacerbation Lasix initiated in the emergency department Dose of Rocephin administered for suspected right lower lobe pneumonia Patient admitted to hospitalist service for further treatment, evaluation and monitoring. Extensive evaluation was performed in attempt to identify or rule out: (See differential diagnosis section) The following tests were ordered, and results were reviewed by me and discussed with patient: (See diagnostic results section) The following test were independently interpreted by me: EKG, chest x-ray I reviewed and agreed with the following test results read by other providers: Chest x-ray I reviewed the following notes from the pt's past medical encounters: Encounter 12/2024 for abdominal pain Additional information was gathered from interviewing the following independent historians: N/A Discussion of management or test interpretation with external physician/other qualified health career and transition teacher: N/A Addressed one or more chronic illnesses with severe exacerbation, progression, or side effects of treatment: CHF exacerbation Decision regarding hospitalization or escalation of hospital level of care: Risk and benefits of admission for further treatment of patient's condition was considered. Due to patient's current clinical condition, high risk of decline and poor outcome if discharged and need for further inpatient management and monitoring, patient will be admitted to the hospital. Drug therapy requiring intensive monitoring for toxicity: IV furosemide Parenteral controlled substances: N/A Decision regarding elective major surgery with identified patient or procedure risk factors: N/A Decision regarding emergency major surgery: N/A Decision not to resuscitate or to de-escalate care because of poor prognosis: N/A Diagnosis or treatment significantly limited by social determinants of health: N/A Critical Care Note Critical Care Time?: No Stability Stability form required: No Heart Score Heart Score: Heart Score Response (Comments) Value History Slightly Suspicious 0 EKG Normal 0 Age >65 2 Risk Factors 1 or 2 risk factors 1 Troponin Normal limit 0 Total 3 I personally scribed for TIA FREEMAN MD ([email or web address]) on 01/23/25 at 21:48. Electronically submitted by Milena Fierro ([email or web address]). I personally scribed for TIA FREEMAN MD ([email or web address]) on 01/23/25 at 23:33. Electronically submitted by Milena Fierro ([email or web address]). TIA FREEMAN MD January 23, 2025 21:48
[2025-01-23 21:57] LABS: Basophils # (auto) 0 10 ^3/uL (0-0.2); Basophils % (auto) 0.5 % (0.0-2.0); Lymphocytes # (auto) 0.7 10 ^3/uL (0.4-5.4); Monocytes # (auto) 0.5 10 ^3/uL (0-1.3); Nucleated Red Blood Cells % 0.1 %; Red Blood Cells 4.85 10^6/uL (4.5-5.90)
[2025-01-23 21:59] LABS: Eosinophils # (auto) 0.1 10 ^3/uL (0-0.8); Eosinophils % (auto) 0.7 % (0.0-7.0); Hematocrit 32.7 % (41.0-53.0); Hemoglobin 10.5 g/dL (13.5-17.5); Lymphocytes % (auto) 10.4 % (10.0-50.0); Mean Corpuscular Hemoglobin 21.6 pg (28.0-32.0); Mean Corpuscular Volume 67.5 fL (80.0-100.0); Monocytes % (auto) 7.1 % (0.0-12.0); Neutrophils # (auto) 5.7 10 ^3/uL (1.6-8.6); Neutrophils % (auto) 81.3 % (37.0-80.0); Platelet Count (auto) 235 10^3/uL (140-450)
[2025-01-23 22:00] LABS: Red Cell Distribution Width 20.7 % (11.8-14.3)
--- NOTE | 2025-01-23 22:17 | DVH ---
CHEST RADIOGRAPH Indication: Shortness of breath Technique: Single frontal view of the chest was obtained COMPARISON: None FINDINGS: Lines and Tubes: None Lungs / Pleura: Opacities noted at both lung bases greater on the right side. Probable small right-si ded pleural effusion. No evidence of pulmonary edema. Cardiomediastinal contours: Mild cardiomegaly. IMPRESSION: Bibasilar atelectasis/consolidation greater on the right side.
[2025-01-23 22:18] LABS: Alanine Aminotransferase 30 U/L (7-40); Albumin 3.4 g/dL (3.2-4.8); Anion Gap 10 (5-15); BUN/Creatinine Ratio 15.4 (10.0-20.0); Blood Urea Nitrogen 14 mg/dL (9-23); Calcium 8.8 mg/dL (8.7-10.4); Carbon Dioxide 23 mmol/L (20-31); Glucose 99 mg/dL (74-106); Potassium 3.7 mmol/L (3.5-5.1); Sodium 141 mmol/L (136-145)
[2025-01-23 22:31] LABS: Alkaline Phosphatase 511 U/L (46-116); Aspartate Aminotransferase 47 U/L (13-40); Bilirubin, Total 1.8 mg/dL (0.2-1.0); Chloride 108 mmol/L (98-107)
[2025-01-24] VITALS (15 sets, daily range): BP systolic 112–148; BP diastolic 80–95; PULSE 75–100; RESP 16–20; TEMP 97.3–99.4; O2SAT 94–100
[2025-01-24] MEDS ORDERED: ONDANSETRON HCL 4 MG/2 ML VIAL IV PRN (00:30)
[2025-01-24] MEDS ORDERED: DOCUSATE SOD 100 MG CAP PO PRN (00:30)
[2025-01-24] MEDS ORDERED: NITROGLYCERIN 0.4 MG SL TAB SL PRN (00:30)
--- NOTE | 2025-01-24 01:03 | DVHHP2 ---
History of Present Illness History of Present Illness Patient is 74 years old male with a history of hypertension, diabetes mellitus type 2, HFrEF 25%, hyperlipidemia, history of cirrhosis of liver, history of suspected liver mass likely hepatocellular carcinoma, hepatitis-C positive, status post ERCP stent placed on 12/22/2024, history of cirrhosis done on 12/29/2024, patient was lipase at home which is malfunctioning, chronic smoker came to the hospital for worsening short of breath. As per patient he has been worsening short of breath for last 3 days, with orthopnea and PND worsened with exertion, mild relieved with rest, patient also complained of some central pressure-like chest pain associated with shortness of breaths, Palpitation. On further discussion also also reported feeling legs swelling for last 3 days, patient reported his legs are swollen for last several years. Patient reported he has a malfunctioning cardiac arrest at home, call in the company to get it f ixed. Patient denied any fever or cough any joint redness or dysarthria or change in vision, any sick contact. Initial lab workup revealed hemoglobin 10.5, neutrophil 81.3%>, BNP 5000, troponin I with a normal limit, serum bilirubin 1.8, AST 47, ALT 30, alkaline phosphatase 511, Bibasilar atelectasis/consolidation greater on the right side. CT abdomen on 01/11/30 revealed-Mass in the upper abdomen with enhancement of its periphery and central hypo enhancement/non enhancement, abutting the caudate lobe of the liver, but periphery of the mass appears to enhance greater than the liver parenchyma. Possible liver mass or mass adjacent to the liver. Malignancy not excluded. Common bile duct stent in place as described above. Moderate ascites and anasarca. Small right pleural effusion. Cirrhotic liver morphology. Patient was recently discharged from [facility] on treated due to sepsis secondary to biliary stent, Patient was seen by Dr. Leon as well Past Medical History hypertension, diabetes mellitus type 2, HFrEF 25%, hyperlipidemia, history of cirrhosis of liver, history of suspected liver mass likely hepatocellular carcinoma, status post ERCP stent placed on 12/22/2024, history of cirrhosis done on 12/29/2024, patient was lipase at home which is malfunctioning, chronic smoker Past Surgical History Patient's abdominal surgery details could not be explained, there is abdominal scar, bilateral knee replacement Family History Mom and dad both had heart attack Past Social History Lives with son, chronic smoker, ex alcoholic, denies substance abuse Review of Systems Review of Systems Patient was seen today at the bedside. Respiratory denies cough or or wheezing Gastrointestinal- denies any rectal bleeding, nausea or vomiting Musculoskeletal-denies acute joint tenderness or redness Neurological- denies acute dysarthria, dysphagia, change in vision Psychiatry- denies depression or SI or HI Skin- denies acute rash or purpura Allergies: Coded Allergies: NO KNOWN ALLERGIES (Unverified , 01/11/25) Medications Current Medications Medications Dose Ordered Sig/Mikki Route Start Time Stop Time Status Last Admin Dose Admin Sodium Chloride 10 ml Q8HR IV 01/24/25 06:00 Ondansetron HCl 4 mg Q4HP PRN IV 01/24/25 00:30 Docusate Sodium 100 mg BIDPRN PRN PO 01/24/25 00:30 Acetaminophen 650 mg Q6HP PRN PO 01/24/25 00:30 Nitroglycerin 0.4 mg Q5MINP PRN SL 01/24/25 00:30 Morphine Sulfate 2 mg Q30M PRN IV 01/24/25 00:30 Exam Vital Signs Vital Signs Date Time Temp Pulse Resp B/P (MAP) Pulse Ox O2 Delivery O2 Flow Rate FiO2 01/24/25 00:27 Room Air* 0 21 01/24/25 00:09 99.1 97 14 129/76 (93) 99 99.1 Exam General examination- patient is dyspneic, awake, alert, oriented HEENT- PEERLA, no acute nasal discharge Cardiovascular- S1-S2 audible, rate and rhythm regular, no murmur Respiratory-bi lateral lung crackles++ Gastrointestinal-nontender, bowel sound+. distended ++ Musculoskeletal-no acute joint swelling or tenderness or redness Lower extremity- bilateral leg edema++++ Neurological- cranial nerves intact, no acute dysarthria or dysphagia Psychiatry- denies depression or SI or HI Skin- no acute rash or purpura Labs/Xrays Labs Test 01/23/25 22:14 01/23/25 21:35 Range/Units Troponin I High Sensitivity 24 </=54 ng/L White Blood Count 7.0 4.4-10.8 10^3/uL Red Blood Count 4.85 4.5-5.90 10^6/uL Hemoglobin 10.5 L 13.5-17.5 g/dL Hematocrit 32.7 L 41.0-53.0 % Mean Corpuscular Volume 67.5 L 80.0-100.0 fL Mean Corpuscular Hemoglobin 21.6 L 28.0-32.0 pg Mean Corpuscular Hemoglobin Concent 32.0 32.0-36.0 g/dL Red Cell Distribution Width 20.7 H 11.8-14.3 % Platelet Count 235 140-450 10^3/uL Mean Platelet Volume 8.3 6.9-10.8 fL Neutrophils (%) (Auto) 81.3 H 37.0-80.0 % Lymphocytes (%) (Auto) 10.4 10.0-50.0 % Monocytes (%) (Auto) 7.1 0.0-12.0 % Eosinophils (%) (Auto) 0.7 0.0-7.0 % Basophils (%) (Auto) 0.5 0.0-2.0 % Neutrophils # (Auto) 5.7 1.6-8.6 10 ^3/uL Lymphocytes # (Auto) 0.7 0.4-5.4 10 ^3/uL Monocytes # (Auto) 0.5 0-1.3 10 ^3/uL Eosinophils # (Auto) 0.1 0-0.8 10 ^3/uL Basophils # (Auto) 0 0-0.2 10 ^3/uL Nucleated Red Blood Cells 0.1 % Sodium Level 141 136-145 mmol/L Potassium Level 3.7 3.5-5.1 mmol/L Chloride Level 108 H 98-107 mmol/L Carbon Dioxide Level 23 20-31 mmol/L Anion Gap 10 5-15 Blood Urea Nitrogen 14 9-23 mg/dL Creatinine 0.91 0.700-1.30 mg/dL Glomerular Filtration Rate Calc 89 >90 mL/min BUN/Creatinine Ratio 15.4 10.0-20.0 Serum Glucose 99 74-106 mg/dL Calcium Level 8.8 8.7-10.4 mg/dL Total Bilirubin 1.8 H 0.2-1.0 mg/dL Aspartate Amino Transferase (AST) 47 H 13-40 U/L Alanine Aminotransferase (ALT) 30 7-40 U/L Alkaline Phosphatase 511 H 46-116 U/L B-Type Natriuretic Peptide > 5000.00 0-100 pg/mL Total Protein 8.0 5.7-8.2 g/dL Albumin 3.4 3.2-4.8 g/dL Assessment/Plan Assessment/Plan Assessment and plan Acute hypoxic respiratory failure likely due to acute exacerbation of HFrEF/PNA Acute exacerbation of HFrEF Suspected acute pneumonia Gram-positive versus Gram-negative Bilateral leg swelling likely due to acute exacerbation of HFrEF Hypertension Diabetes mellitus Hyperlipidemia History of cirrhosis of liver Liver mass likely hepatocellular carcinoma Transaminitis likely due to liver mass/hepatocellular carcinoma Ascites Hepatitis-C positive Status post ERCP on 12/22/2024 Patient had liver biopsy on 12/29/2024 Emphysema with bullous lesion Chronic smoker Anemia likely due to anemia of chronic disease CT abdomen on 01/11/30 revealed-Mass in the upper abdomen with enhancement of its periphery and central hypo enhancement/non enhancement, abutting the caudate lobe of the liver, but periphery of the mass appears to enhance greater than the liver parenchyma. Possible liver mass or mass adjacent to the liver. Malignancy not excluded. Common bile duct stent in place as described above. Moderate ascites and anasarca. Small right pleural effusion. Cirrhotic liver morphology. Plan Ordered cardiology consult for further evaluation and care Aspirin 81 mg p.o. daily Statin 40 mg p.o. q.h.s. Lasix 40 mg IV b.i.d. entresto 24-26 1 tab b.i.d. Spironolactone 25 mg p.o. daily Metoprolol 25 mg p.o. b.i.d. Ceftriaxone and doxycycline as prescribed Insulin as prescribed Pantoprazole as prescribed Ordered Doppler study of the bilateral lower extremity to rule out DVT Ordered Echo 2D for further evaluation and care Ordered sputum culture [employer] Administrator Dr. Steele PCP-patient could not provide any name Goals of care, Code status ; discussed with >15 minutes PUD prophylaxis: Pantoprazole DVT prophylaxis: Lovenox Plan discussed with Dr. Castillo , nursing staff, Total time spent on patient evaluation, chart review, assessment and plan, discussion discussion >35 minutes Plan discussed with: Patient, Son (RN), Other My Orders Orders - EVANGELINA LUCERO RESIDENT Procedure Category Date Status Time Admit ADMIT 01/24/25 Transmitted 00:21 Code Status CODE 01/24/25 Transmitted 00:21 Sodium Chloride Lock PHA 01/24/25 In Process (Saline Lock Ns) 06:00 Ondansetron Hcl PHA 01/24/25 In Process (Zofran) 00:30 Docusate Sodium PHA 01/24/25 In Process Capsule (Colace 00:30 Complete Blood Count LAB 01/25/25 Verified 04:00 Comprehensive LAB 01/25/25 Verified Metabolic Panel 04:00 Cardiac DIET 01/24/25 Transmitted Diet-2gna,Lofat,Lochol Breakfast Acetaminophen Tablet PHA 01/24/25 In Process (Tylenol Tablet) 00:30 Nitroglycerin PHA 01/24/25 In Process Sublingual (Ntrostat 00:30 Morphine Sulfate PHA 01/24/25 In Process Injection 00:30 Oxygen By Nasal RT 01/24/25 Transmitted Cannula 00:21 Stat Ekg For Chest SOPHIA 01/24/25 In Process Pain 00:21 Notify Of Changes [facility] 01/24/25 In Process From Base 00:21 Med Spa Manager For [facility] 01/24/25 In Process 24 Hours 00:21 Emergency Dysrhythmia [facility] 01/24/25 In Process Protocol 00:21 Rhythm Strips Once [facility] 01/24/25 In Process Every Shift 00:21 Date of Service: January 24, 2025 Billing Provider: MARAH CASTILLO MD Common Visit Codes: 61529-EJLWYFR INP/OBS CARE (HIGH) Secondary Visit Codes: 94911-[id number] CARE PLAN 30 MINUTES EVANGELINA LUCERO RESIDENT January 24, 2025 01:03
[2025-01-24] MEDS: FUROSEMIDE 40 MG/4 ML VIAL IV ONE ×2 (01:26→03:56)
[2025-01-24] MEDS ORDERED: DEXTROSE (50%) 50ML SYRG IV PRN (01:30)
[2025-01-24] MEDS: ENOXAPARIN SOD 40 MG/0.4 ML SYRINGE SC ONE (01:30)
--- NOTE | 2025-01-24 02:19 | DVH ---
Bilateral lower extremity venous duplex Clinical History: B/L Leg swelling Comparison: None Technique: Duplex Doppler evaluation of the deep venous systems of both lower extremities from the common femora l veins to the popliteal veins including color Doppler and spectral/pulsed waveform analysis was perf ormed. Findings: RIGHT SIDE: The common femoral vein demonstrates appropriate compressibility and waveform variability. There is compressibility/patency of the great saphenous vein at the proximal thigh. The femoral vein demonstrates appropriate compressibility and waveform variability. The deep femoral vein demonstrates appropriate compressibility and waveform variability. The popliteal vein demonstrates appropriate compressibility and waveform variability. There is normal compressibility at the tibioperoneal trunk. LEFT SIDE: The common femoral vein demonstrates appropriate compressibility and waveform variability. There is compressibility/patency of the great saphenous vein at the proximal thigh. The femoral vein demonstrates appropriate compressibility and waveform variability. The deep femoral vein demonstrates appropriate compressibility and waveform variability. The popliteal vein demonstrates appropriate compressibility and waveform variability. There is normal compressibility at the tibioperoneal trunk. Impression: No evidence of right or left femoropopliteal venous thrombosis.
[2025-01-24] MEDS: cefTRIAXone 1GM/50ML D5W 50 ML IV ONE ×2 (03:20)
[2025-01-24] MEDS: ACETAMINOPHEN 325 MG TAB PO PRN (03:21)
[2025-01-24] MEDS: PANTOPRAZOLE 40 MG/10 ML VIAL INJ IV ONE (03:21)
[2025-01-24] MEDS: SPIRONOLACTONE 25 MG TAB PO ONE (03:21)
[2025-01-24] MEDS: ASPirin 81 mg TAB PO ONE (03:22)
[2025-01-24 03:42] LABS: COVID19 ANTIGEN SOFIA FIA NEGATIVE (NEGATIVE)
[2025-01-24] MEDS: DOXYCYCLINE 100MG/100ML 100 ML IV ONE (03:50)
[2025-01-24 03:57] LABS: Rapid Influenza A Negative (Negative); Rapid Influenza B Negative (Negative)
[2025-01-24] MEDS: FUROSEMIDE 40 MG/4 ML VIAL IV SCH (05:21)
[2025-01-24] MEDS: SODIUM CHLOR 0.9% PF (SALINE LOCK) 10ML VIAL/SYR IV SCH (05:58)
[2025-01-24] MEDS: ACCU-CHEK COMFORT CURVE STRIP VI SCH (06:02)
[2025-01-24] MEDS: InsuLIN REG 1unit/0.01ml Soln (100units/ml) SC SCH (06:03)
--- NOTE | 2025-01-24 06:40 | ECG ---
[facility] Test Date: 2025-01-23 Test Time: 22:22:32 Pat Name: TIM NULL Department: ED Room: [facility]5T B Gender: M Learning And Development Specialist: RANDOLPH : 1950 Requested By: TIA FREEMAN Order Number: [id number] Reading MD: Hardeep Tate Measurements Intervals [place] Rate: 95 P: 70 MN: 152 QRS: 77 QRSD: 88 T: 18 QT: 377 QTc: 474 Interpretive Statements Sinus rhythm RSR' in V1 or V2, right VCD or RVH Borderline abnrm T, anterolateral leads Electronically Signed On 01-24-2025 21:10:02 PDT by Hardeep Tate Please click the below link to view image of tracing.
[2025-01-24] MEDS: LEVALBUTEROL HCL 1.25 MG/3 ML NEB NEB SCH (07:16)
[2025-01-24] MEDS: IPRATROPIUM BROM 0.5 MG/2.5ML INH SOL NEB SCH (07:16)
--- NOTE | 2025-01-24 08:40 | ECG ---
[facility] Test Date: 2025-01-23 Test Time: 21:31:29 Pat Name: TIM NULL Department: ER Room: [facility]5T B Gender: M Quantometer Operator: SOHA : 1950 Requested By: TIA FREEMAN Order Number: [id number] Reading MD: Hardeep Tate Measurements Intervals [place] Rate: 101 P: 57 MN: 168 QRS: 51 QRSD: 85 T: 9 QT: 383 QTc: 497 Interpretive Statements Sinus tachycardia RSR' in V1 or V2, right VCD or RVH Borderline prolonged QT interval Electronically Signed On 01-24-2025 21:10:19 PDT by Hardeep Tate Please click the below link to view image of tracing.
--- NOTE | 2025-01-24 09:52 | DVHPNRES ---
Progress Note Date Seen: January 24, 2025 Resident Creating Document: MENDOZA STANTON RESIDENT Medical Necessity Reason Pt with a Central, PICC or Fol: No Subjective Review of Systems TIM NULL is a 74-year-old male presented to the ED with the complaints of worsening of shortness of breath for 3 dayswith orthopnea and PND worsened with exertion, mild relieved with rest, patient also complained of some central pressure-like chest pain associated with shortness of breaths, Palpitation. PMH: HTN, type 2 DM, HFrEF 25% on life vest ( malfunctioning according to the patient), HLD, cirrhosis, possible HCC S/P ERCP PSH: Patient's abdominal surgery details could not be explained, there is abdominal scar, bilateral knee replacement Family history: History of heart disease in family Social history: Lives with son, chronic smoker, ex alcoholic, denies substance abuse Patient seen and examined at the bedside. Patient is currently reporting shortness of breath and mild chest heaviness. EKG reviewed, troponins x2 were negative. Initiated GDM T, consulted cardiology for further evaluation and ordered echocardiogram. Objective vital signs Vital Sign Date Time Temp Pulse Resp B/P (MAP) Pulse Ox O2 Delivery O2 Flow Rate FiO2 01/24/25 07:22 77 16 100 01/24/25 07:16 Nasal Cannula 2.0 01/24/25 07:16 28 01/24/25 05:21 132/85 01/24/25 05:00 97.4 97.4 Total Intake and Output 01/23/25 01/23/25 01/24/25 15:00 23:00 07:00 Intake Total 0 ml Balance 0 ml medications Current Medications Medications Dose Ordered Sig/Mikki Route Start Time Stop Time Status Last Admin Dose Admin Sodium Chloride 10 ml Q8HR IV 01/24/25 06:00 01/24/25 05:58 10 ML Ondansetron HCl 4 mg Q4HP PRN IV 01/24/25 00:30 Docusate Sodium 100 mg BIDPRN PRN PO 01/24/25 00:30 Acetaminophen 650 mg Q6HP PRN PO 01/24/25 00:30 01/24/25 03:21 650 MG Nitroglycerin 0.4 mg Q5MINP PRN SL 01/24/25 00:30 Morphine Sulfate 2 mg Q30M PRN IV 01/24/25 00:30 Furosemide 40 mg TID IV 01/24/25 06:00 Aspirin 81 mg DAILY PO 01/24/25 10:00 Atorvastatin Calcium 40 mg HS PO 01/24/25 22:00 Metoprolol Tartrate 25 mg BID PO 01/24/25 10:00 Spironolactone 25 mg DAILY PO 01/24/25 10:00 Pantoprazole Sodium 40 mg DAILY IV 01/24/25 10:00 Levalbuterol HCl 0.625 mg Q6HR NEB 01/24/25 06:00 01/24/25 07:16 0.625 MG Ipratropium [place] 0.5 mg Q6HR NEB 01/24/25 06:00 01/24/25 07:16 0.5 MG Sacubitril/ Valsartan 1 tab BID PO 01/24/25 10:00 Enoxaparin Sodium 40 mg Q24H SC 01/24/25 21:00 Diagnostic Test (Pha) 1 strip ACHS 01/24/25 07:00 01/24/25 06:02 1 STRIP Insulin Human Regular ACHS SC 01/24/25 07:00 Dextrose 50 ml UD PRN IV 01/24/25 01:30 Ceftriaxone Sodium 50 ml @ 100 mls/hr DAILY@09 IV 01/25/25 09:00 Doxycycline Hyclate 100 ml @ 50 mls/hr Q12H IV 01/24/25 10:00 Examination Pt is lying on bed General Appearance: Alert, Oriented X3, Cooperative, mild distress HEENT: Atraumatic, Mucous membranes moist/pink Respiratory: Clear to auscultation, Normal air movement, Bilateral lung crackles Cardiovascular: Regular rate, Normal S1, Normal S2, No murmurs Abdominal: Active bowel sounds, Soft, mild distention, no tenderness Extremities: 2 to 3+ BLE, Normal pulses, No tenderness/swelling Skin: No Significant rash, except past surgical scars Neuro: Normal speech, sensorimotor deficits none Psych/Mental Status: Mental status NL, Mood NL Nurse was there as sharperone during examination laboratory and microbiology Laboratory Tests 01/23/25 21:35 Test 01/23/25 21:35 Range/Units Serum Glucose 99 74-106 mg/dL Labs and/or images reviewed: Labs reviewed by me, Image(s) reviewed by me Problem List/Assessment/Plan Problem List/Assessment/Plan # Acute hypoxic respiratory failure likely due to acute exacerbation of HFrEF # Acute exacerbation of HFrEF # R/o pneumonia # HTN # HLD - Initiated GDM T, consulted cardiology for further evaluation and ordered echocardiogram. - elevated BNP - Lasix 40 mg IV b.i.d. -Entresto, metoprolol, Aldactone - Lipitor - strict I and Os # History of cirrhosis of liver # Liver mass likely hepatocellular carcinoma # Transaminitis likely due to liver mass/hepatocellular carcinoma # Ascites # Hepatitis-C positive # Status post ERCP on 12/22/2024 - outpatient follow up with the GI # T2 DM - Accu-Cheks Protonix Lovenox Diabetic diet if tolerates Goals of care discussed with the patient for more than 29 minutes: Full code status Case discussed with Dr. Dickens, patient and RN Plan discussed with: Patient My Orders My Orders Orders - MENDOZA STANTON RESIDENT Procedure Category Date Status Time Urinalysis LAB 01/24/25 Logged 06:41 Complete Blood Count LAB 01/24/25 Logged 07:47 MENDOZA STANTON RESIDENT January 24, 2025 09:52
[2025-01-24] MEDS ORDERED: VALSARTAN 80 MG TAB PO SCH (10:00)
[2025-01-24] MEDS: PANTOPRAZOLE 40 MG/10 ML VIAL INJ IV SCH (10:17)
[2025-01-24] MEDS: SACUBITRIL-VALSARTAN 24mg/26mg TAB PO SCH (10:18)
[2025-01-24] MEDS: DOXYCYCLINE 100MG/100ML 100 ML IV SCH (10:18)
[2025-01-24] MEDS: ASPirin 81 mg TAB PO SCH (10:18)
[2025-01-24] MEDS: METOPROLOL TARTRATE 25 MG TAB PO SCH (10:19)
[2025-01-24] MEDS: SPIRONOLACTONE 25 MG TAB PO SCH (10:19)
[2025-01-24 11:26] LABS: Basophils # (auto) 0.1 10 ^3/uL (0-0.2); Basophils % (auto) 0.8 % (0.0-2.0); Eosinophils # (auto) 0 10 ^3/uL (0-0.8); Eosinophils % (auto) 0.6 % (0.0-7.0); Hematocrit 33.9 % (41.0-53.0); Hemoglobin 10.6 g/dL (13.5-17.5); Lymphocytes # (auto) 0.8 10 ^3/uL (0.4-5.4); Lymphocytes % (auto) 11.4 % (10.0-50.0); Mean Corpuscular Hemoglobin 21.1 pg (28.0-32.0); Mean Corpuscular Hgb Conc. 31.2 g/dL (32.0-36.0); Mean Corpuscular Volume 67.5 fL (80.0-100.0); Monocytes # (auto) 0.5 10 ^3/uL (0-1.3); Monocytes % (auto) 7.3 % (0.0-12.0); Neutrophils # (auto) 5.4 10 ^3/uL (1.6-8.6); Neutrophils % (auto) 79.9 % (37.0-80.0); Nucleated Red Blood Cells % 0.1 %; Platelet Count (auto) 200 10^3/uL (140-450); Red Blood Cells 5.03 10^6/uL (4.5-5.90); Red Cell Distribution Width 20.2 % (11.8-14.3); White Blood Cell 6.7 10^3/uL (4.4-10.8)
[2025-01-24] MEDS: MORPHINE SULFATE INJ 2 MG/ml SYRG IV PRN (11:29)
[2025-01-24 11:48] LABS: Alanine Aminotransferase 30 U/L (7-40); Albumin 3.3 g/dL (3.2-4.8); Anion Gap 10 (5-15); Blood Urea Nitrogen 15 mg/dL (9-23); Calcium 9.3 mg/dL (8.7-10.4); Carbon Dioxide 23 mmol/L (20-31); Magnesium 1.9 mg/dL (1.6-2.6); Potassium 3.8 mmol/L (3.5-5.1); Sodium 141 mmol/L (136-145); Total Protein 7.9 g/dL (5.7-8.2)
[2025-01-24 11:49] LABS: Folate (Folic Acid) 8.94 ng/mL (>5.38)
[2025-01-24 11:53] LABS: Alkaline Phosphatase 513 U/L (46-116); Aspartate Aminotransferase 43 U/L (13-40); Bilirubin, Total 1.7 mg/dL (0.2-1.0); Blood Alcohol < 3.0 mg/dL (<10); Chloride 108 mmol/L (98-107); Glucose 140 mg/dL (74-106)
[2025-01-24 11:54] LABS: Lactic Acid w/Reflex 2.9 mmol/L (0.4-2.0)
[2025-01-24 12:09] LABS: Lipase 27 U/L (12-53)
--- NOTE | 2025-01-24 14:31 | DVHSR ---
APPROVED REPORT EXAM: Two-dimensional and M-mode echocardiogram with Doppler and color Doppler. Blood Pressure: 132/85 mmHg INDICATION Heart Failure RISK FACTORS Height: 6'5", Weight: 182 DIMENSIONS LVDd5.8 (3.8-5.7cm)LA (2D)5.3 (1.9-4.0cm)Aortic Root3.2 (2.0-3.7cm) LVDs5.3 (2.5-4.0cm)LA (MM) (1.9-4.0cm)Aortic Cusp Exc2.0 (1.5-2.0cm) EF (%) 19.0 (55-70%)Rt. Atrium6.0 (1.9-4.0cm)Asc. Aorta3.2 cm IVSd0.8 (0.7-1.1cm)RV (D)6.0 (1.8-2.4cm) PWd0.9 (0.7-1.1cm) Mitral Valve MitralMitral Stenosis E wave0.64m/sMV Mean GR.mmHg E/A ratio0.02D MVAcm2 Aortic Valve Aortic ValveAortic Stenosis V10.57m/Any Mean GR.2mmHg V20.88m/Any Peak GR.3mmHg LVOT Diameter2.3 (1.8-2.4cm)Doppler AVA2.69cm2 AI P 1/2 Ouid005.78ms Pulmonic Valve V20.56m/s Tricuspid Valve TR Velocity2.36m/s [id number] Conclusion lvef 10% by visual estiamte dialted LV RV dysfunction milld mitral regurg severe tricuspid regurg biatrial enlargement end stage dilated heart failure
--- NOTE | 2025-01-24 14:34 | DVHINCON2 ---
Date of service: January 24, 2025 History of Present Illness 74 yo M with hx of hypertension, diabetes mellitus type 2, HFrEF 25%, hyperlipidemia, history of cirrhosis of liver, history of suspected liver mass likely hepatocellular carcinoma, hepatitis-C positive, status post ERCP stent placed on 12/22/2024, history of cirrhosis admitted. pt has hx of life vest and owns 2 of them. he has CHF but is not a great historian. he hasnt seen cards in some time. Past Medical History reviewed Family History: Patient reports no known family medical history. Allergies: Coded Allergies: NO KNOWN ALLERGIES (Unverified , 01/11/25) Home Meds Active Scripts Cefdinir (Cefdinir) 300 Mg Cap, 1 CAP PO BID, #14 CAP Prov:WILFRED CALL MD 01/14/25 Ondansetron Odt 4MG Tab (ZOFRAN PO) 4 Mg Tb, 4 MG PO QID PRN, #30 TAB ODT TAB-DISSOLVE IN MOUTH, THEN SWALLOW Prov:WILFRED CALL MD 01/14/25 Tramadol HCl (Tramadol HCl) 50 Mg Tab, 50 MG PO QID PRN, #40 TAB Prov:WILFRED CALL MD 01/14/25 Current Medications Current Medications Medications (Trade) Dose Ordered Sig/Mikki Route PRN Reason Start Time Stop Time Status Last Admin Sodium Chloride (Saline Lock Ns) 10 ml Q8HR IV 01/24/25 06:00 01/24/25 05:58 Ondansetron HCl (Zofran) 4 mg Q4HP PRN IV NAUSEA / VOMITING 01/24/25 00:30 Docusate Sodium (Colace Capsule) 100 mg BIDPRN PRN PO FOR CONSTIPATION 01/24/25 00:30 Acetaminophen (Tylenol Tablet) 650 mg Q6HP PRN PO PAIN SCALE 1-3 OR TEMP>100.4 01/24/25 00:30 01/24/25 03:21 Nitroglycerin (Ntrostat Sublingual) 0.4 mg Q5MINP PRN SL FOR CHEST PAIN 01/24/25 00:30 Morphine Sulfate 2 mg Q30M PRN IV FOR CHEST PAIN 01/24/25 00:30 01/24/25 11:29 Furosemide (Lasix Injection) 40 mg TID IV 01/24/25 06:00 Aspirin 81 mg DAILY PO 01/24/25 10:00 01/24/25 10:18 Atorvastatin Calcium (Lipitor) 40 mg HS PO 01/24/25 22:00 Valsartan (Diovan) 80 mg DAILY PO 01/24/25 10:00 01/24/25 01:16 DC Metoprolol Tartrate (Lopressor Tablet) 25 mg BID PO 01/24/25 10:00 01/24/25 10:19 Spironolactone (Aldactone) 25 mg DAILY PO 01/24/25 10:00 01/24/25 10:19 Pantoprazole Sodium (Protonix) 40 mg DAILY IV 01/24/25 10:00 01/24/25 10:17 Levalbuterol HCl (Xopenex Medneb) 0.625 mg Q6HR NEB 01/24/25 06:00 01/24/25 11:53 Ipratropium [place] (Atrovent Medneb) 0.5 mg Q6HR NEB 01/24/25 06:00 01/24/25 11:53 Sacubitril/ Valsartan (Entresto 24-26 Mg tab) 1 tab BID PO 01/24/25 10:00 01/24/25 10:18 Enoxaparin Sodium (Lovenox) 40 mg Q24H SC 01/24/25 21:00 Diagnostic Test (Pha) (Accu-Chek Comfort Curve T) 1 strip ACHS 01/24/25 07:00 01/24/25 11:31 Insulin Human Regular (InsuLIN R) ACHS SC 01/24/25 07:00 01/24/25 11:45 Dextrose 50 ml UD PRN IV Blood Sugar LESS THAN 60 01/24/25 01:30 Ceftriaxone Sodium 50 ml @ 100 mls/hr DAILY@09 IV 01/25/25 09:00 Doxycycline Hyclate 100 ml @ 50 mls/hr Q12H IV 01/24/25 10:00 01/24/25 10:18 Ergocalciferol (Vitamin D 50,000 Unit) 50,000 unit Q7D PO 01/24/25 12:30 Acetaminophen/ Hydrocodone Bitart ([place] 5/325MG Tab) 1 tab Q6HPRN PRN PO MODERATE PAIN (4-6 PAIN SCALE) 01/24/25 13:00 Review of Systems +abd pain, +nausea +sob Vital Signs Vital Signs Date Time Temp Pulse Resp B/P (MAP) Pulse Ox O2 Delivery O2 Flow Rate FiO2 01/24/25 12:53 86 18 136/91 01/24/25 11:59 100 01/24/25 11:53 Nasal Cannula* 4 36 01/24/25 09:00 97.9 97.9 Physical Exam nad ?jaundice s1 s2 rrr diffuse rhonchi abd mild distention Labs/Diagnostic Data Labs Test 01/24/25 12:49 01/24/25 11:32 01/24/25 10:58 01/24/25 02:45 Range/Units Lactic Acid Level 2.3 *H 0.4-2.0 mmol/L POC Glucose 179 H 70-106 mg/dl White Blood Count 6.7 4.4-10.8 10^3/uL Red Blood Count 5.03 4.5-5.90 10^6/uL Hemoglobin 10.6 L 13.5-17.5 g/dL Hematocrit 33.9 L 41.0-53.0 % Mean Corpuscular Volume 67.5 L 80.0-100.0 fL Mean Corpuscular Hemoglobin 21.1 L 28.0-32.0 pg Mean Corpuscular Hemoglobin Concent 31.2 L 32.0-36.0 g/dL Red Cell Distribution Width 20.2 H 11.8-14.3 % Platelet Count 200 140-450 10^3/uL Mean Platelet Volume 8.4 6.9-10.8 fL Neutrophils (%) (Auto) 79.9 37.0-80.0 % Lymphocytes (%) (Auto) 11.4 10.0-50.0 % Monocytes (%) (Auto) 7.3 0.0-12.0 % Eosinophils (%) (Auto) 0.6 0.0-7.0 % Basophils (%) (Auto) 0.8 0.0-2.0 % Neutrophils # (Auto) 5.4 1.6-8.6 10 ^3/uL Lymphocytes # (Auto) 0.8 0.4-5.4 10 ^3/uL Monocytes # (Auto) 0.5 0-1.3 10 ^3/uL Eosinophils # (Auto) 0 0-0.8 10 ^3/uL Basophils # (Auto) 0.1 0-0.2 10 ^3/uL Nucleated Red Blood Cells 0.1 % Sodium Level 141 136-145 mmol/L Potassium Level 3.8 3.5-5.1 mmol/L Chloride Level 108 H 98-107 mmol/L Carbon Dioxide Level 23 20-31 mmol/L Anion Gap 10 5-15 Blood Urea Nitrogen 15 9-23 mg/dL Creatinine 0.88 0.700-1.30 mg/dL Glomerular Filtration Rate Calc 91 >90 mL/min BUN/Creatinine Ratio 17.0 10.0-20.0 Serum Glucose 140 H 74-106 mg/dL Hemoglobin A1c 5.1 <5.7 % A1C Calcium Level 9.3 8.7-10.4 mg/dL Magnesium Level 1.9 1.6-2.6 mg/dL Total Bilirubin 1.7 H 0.2-1.0 mg/dL Aspartate Amino Transferase (AST) 43 H 13-40 U/L Alanine Aminotransferase (ALT) 30 7-40 U/L Alkaline Phosphatase 513 H 46-116 U/L Ammonia 15 11-32 umol/L Total Protein 7.9 5.7-8.2 g/dL Albumin 3.3 3.2-4.8 g/dL Lipase 27 12-53 U/L Vitamin B12 Level 941 H 211-911 pg/mL Vitamin D 25-Hydroxy 27.3 L 30.0-100 ng/mL Folic Acid 8.94 >5.38 ng/mL Thyroid Stimulating Hormone (TSH) 2.60 0.55-4.78 uIU/mL Plasma/Serum Blood Alcohol < 3.0 <10 mg/dL Influenza Type A Antigen Negative Negative Influenza Type B Antigen Negative Negative SARS-CoV-2 Antigen (Rapid) Negative NEGATIVE Test 01/23/25 22:14 01/23/25 21:35 Range/Units Troponin I High Sensitivity 24 </=54 ng/L B-Type Natriuretic Peptide > 5000.00 0-100 pg/mL Assessment end stage HF HCC hepatitis elevated bilirubin Plan/Recommendation agree with primary team started on entresto BB on aldactone on lasix, needs diuresis has home life vest very poor prognosis jardiance on DC home for HF Plan discussed with: Patient TERRELL MCINTOSH MD January 24, 2025 14:34
[2025-01-24] MEDS: ERGOCALCIFEROL 50,000 UNIT(1.25MG) CAP PO SCH (14:37)
[2025-01-24] MEDS: ENOXAPARIN SOD 40 MG/0.4 ML SYRINGE SC SCH (21:14)
[2025-01-24] MEDS: ATORVASTATIN 20 MG TAB PO SCH (21:22)
[2025-01-24 23:41] LABS: Urine Bacteria None Seen /hpf (None Seen)
[2025-01-24 23:59] LABS: Urine Blood Negative /uL (Negative); Urine Clarity Clear (Clear); Urine Color Light-Yellow (Yellow); Urine Hyaline Cast FEW /lpf (0 - 2); Urine Protein, UAD Negative (Negative); Urine Specific Gravity 1.009 (1.001-1.035); Urine Squamous Epithelial Cell None Seen /hpf (<5); Urine Urobilinogen Normal (Negative); Urine WBC 1 /HPF (0-3)
[2025-01-25] VITALS (15 sets, daily range): BP systolic 108–126; BP diastolic 59–82; PULSE 69–101; RESP 14–19; TEMP 97.4–98.2; O2SAT 95–100
[2025-01-25 00:22] LABS: Opiate Scree,Urine Neg (NEGATIVE)
[2025-01-25 00:25] LABS: Amphetamine Screen, Urine Neg (NEGATIVE); Barbiturate Scree,Urine Neg (NEGATIVE); Benzodiazephine Screen, Urine Neg (NEGATIVE); Cannabinoid Screen, Urine Neg (NEGATIVE); Cocaine Screen, Urine Neg (NEGATIVE); Phencyclidine Screen, Urine Neg (NEGATIVE)
[2025-01-25 06:46] LABS: Alanine Aminotransferase 38 U/L (7-40); Anion Gap 11 (5-15); BUN/Creatinine Ratio 17.4 (10.0-20.0); Blood Urea Nitrogen 16 mg/dL (9-23); Calcium 9.1 mg/dL (8.7-10.4); Carbon Dioxide 22 mmol/L (20-31); Glucose 91 mg/dL (74-106); Magnesium 1.7 mg/dL (1.6-2.6); Potassium 3.6 mmol/L (3.5-5.1); Sodium 140 mmol/L (136-145); Total Protein 7.3 g/dL (5.7-8.2)
[2025-01-25 06:49] LABS: Alkaline Phosphatase 468 U/L (46-116); Aspartate Aminotransferase 77 U/L (13-40); Basophils # (auto) 0 10 ^3/uL (0-0.2); Basophils % (auto) 0.3 % (0.0-2.0); Bilirubin, Total 2.1 mg/dL (0.2-1.0); Chloride 107 mmol/L (98-107); Eosinophils # (auto) 0 10 ^3/uL (0-0.8); Hematocrit 33.2 % (41.0-53.0); Mean Corpuscular Hemoglobin 21.6 pg (28.0-32.0)
[2025-01-25 06:52] LABS: Hemoglobin 10.6 g/dL (13.5-17.5); Mean Corpuscular Volume 67.5 fL (80.0-100.0); Monocytes # (auto) 0.6 10 ^3/uL (0-1.3); Monocytes % (auto) 6.3 % (0.0-12.0); Neutrophils # (auto) 7.2 10 ^3/uL (1.6-8.6); Neutrophils % (auto) 82.4 % (37.0-80.0); Platelet Count (auto) 198 10^3/uL (140-450); Red Blood Cells 4.91 10^6/uL (4.5-5.90); Red Cell Distribution Width 19.9 % (11.8-14.3); White Blood Cell 8.7 10^3/uL (4.4-10.8)
[2025-01-25] MEDS: cefTRIAXone 1GM/50ML D5W 50 ML IV SCH (08:23)
--- NOTE | 2025-01-25 14:23 | DVHPNRES ---
Progress Note Date Seen: January 25, 2025 Resident Creating Document: MENDOZA STANTON RESIDENT Medical Necessity Reason Pt with a Central, PICC or Fol: No Subjective Review of Systems Patient seen and examined at the bedside. Patient reported improvement in his symptoms since admission, reported no new complaints. Today patient does go for home oxygen, ordered ABG to check eligibility for home oxygen. wireless sales consultant evaluated the patient and advised to continue current management. we are increasing dose of Lasix to 60 mg b.i.d.. Insert Edwards catheter for strict I&Os. Patient reports: Feels better Objective vital signs Vital Sign Date Time Temp Pulse Resp B/P (MAP) Pulse Ox O2 Delivery O2 Flow Rate FiO2 01/25/25 13:00 97.5 93 18 108/72 (84) 100 97.5 01/25/25 12:29 Nasal Cannula 3.0 01/25/25 12:29 32 Total Intake and Output 01/24/25 01/24/25 01/25/25 15:00 23:00 07:00 Intake Total 50 ml 336 ml 500 ml Output Total 400 ml Balance 50 ml 336 ml 100 ml medications Current Medications Medications Dose Ordered Sig/Mikki Route Start Time Stop Time Status Last Admin Dose Admin Sodium Chloride 10 ml Q8HR IV 01/24/25 06:00 01/25/25 05:58 10 ML Ondansetron HCl 4 mg Q4HP PRN IV 01/24/25 00:30 Docusate Sodium 100 mg BIDPRN PRN PO 01/24/25 00:30 Acetaminophen 650 mg Q6HP PRN PO 01/24/25 00:30 01/24/25 03:21 650 MG Nitroglycerin 0.4 mg Q5MINP PRN SL 01/24/25 00:30 Morphine Sulfate 2 mg Q30M PRN IV 01/24/25 00:30 01/24/25 11:29 2 MG Aspirin 81 mg DAILY PO 01/24/25 10:00 01/25/25 10:28 81 MG Atorvastatin Calcium 40 mg HS PO 01/24/25 22:00 01/24/25 21:22 40 MG Metoprolol Tartrate 25 mg BID PO 01/24/25 10:00 01/25/25 10:29 25 MG Spironolactone 25 mg DAILY PO 01/24/25 10:00 01/25/25 10:28 25 MG Pantoprazole Sodium 40 mg DAILY IV 01/24/25 10:00 01/25/25 10:28 40 MG Levalbuterol HCl 0.625 mg Q6HR NEB 01/24/25 06:00 01/25/25 12:29 0.625 MG Ipratropium [place] 0.5 mg Q6HR NEB 01/24/25 06:00 01/25/25 12:29 0.5 MG Sacubitril/ Valsartan 1 tab BID PO 01/24/25 10:00 01/25/25 10:28 1 TAB Enoxaparin Sodium 40 mg Q24H SC 01/24/25 21:00 01/24/25 21:14 40 MG Diagnostic Test (Pha) 1 strip ACHS 01/24/25 07:00 01/25/25 11:48 1 STRIP Insulin Human Regular ACHS SC 01/24/25 07:00 01/25/25 11:49 2 UNITS Dextrose 50 ml UD PRN IV 01/24/25 01:30 Ceftriaxone Sodium 50 ml @ 100 mls/hr DAILY@09 IV 01/25/25 09:00 01/25/25 08:23 100 MLS/HR Doxycycline Hyclate 100 ml @ 50 mls/hr Q12H IV 01/24/25 10:00 01/25/25 10:29 50 MLS/HR Ergocalciferol 50,000 unit Q7D PO 01/24/25 12:30 01/24/25 14:37 50,000 UNIT Acetaminophen/ Hydrocodone Bitart 1 tab Q6HPRN PRN PO 01/24/25 13:00 Furosemide 60 mg BID IV 01/25/25 22:00 Examination Pt is lying on bed General Appearance: Alert, Oriented X3, Cooperative, mild distress HEENT: Atraumatic, Mucous membranes moist/pink Respiratory: Clear to auscultation, Normal air movement, Bilateral lung crackles Cardiovascular: Regular rate, Normal S1, Normal S2, No murmurs Abdominal: Active bowel sounds, Soft, mild distention, no tenderness Extremities: 2 to 3+ BLE, Normal pulses, No tenderness/swelling Skin: No Significant rash, except past surgical scars Neuro: Normal speech, sensorimotor deficits none Psych/Mental Status: Mental status NL, Mood NL Nurse was there as sharperone during examination laboratory and microbiology Laboratory Tests 01/25/25 05:50 Test 01/25/25 05:50 Range/Units Serum Glucose 91 74-106 mg/dL Labs and/or images reviewed: Labs reviewed by me, Image(s) reviewed by me Problem List/Assessment/Plan Problem List/Assessment/Plan # Acute hypoxic respiratory failure likely due to acute exacerbation of HFrEF # Acute exacerbation of HFrEF # R/o pneumonia # HTN # HLD # Severe tricuspid regurgitation - Initiated GDM T, - Echocardiogram showed LVEF 10% - elevated BNP - Lasix 40 mg IV b.i.d. - Entresto, metoprolol, Aldactone - Lipitor - strict I and Os -natural remedy consultant evaluated the patient and advised to continue current management # History of cirrhosis of liver # Liver mass likely hepatocellular carcinoma # Transaminitis likely due to liver mass/hepatocellular carcinoma # Ascites # Hepatitis-C positive # Status post ERCP on 12/22/2024 - outpatient follow up with the GI # T2 DM - Accu-Cheks Protonix Lovenox Diabetic diet if tolerates Goals of care discussed with the patient for more than 29 minutes: Full code status Case discussed with Dr. Dickens, patient and RN Plan discussed with: Patient My Orders My Orders Orders - MENDOZA STANTON RESIDENT Procedure Category Date Status Time Furosemide Injection PHA 01/25/25 In Process (Lasix Injection) 22:00 Insert Edwards Catheter OSPHIA 01/25/25 In Process 11:12 Abg W/ Co-Ox RT 01/25/25 Logged 14:20 MENDOZA STANTON RESIDENT January 25, 2025 14:23
[2025-01-25] MEDS: HYDROcodone-ACET 5/325MG TAB PO PRN (19:03)
[2025-01-25] MEDS: FUROSEMIDE 40 MG/4 ML VIAL IV SCH (22:00)
[2025-01-26] VITALS (16 sets, daily range): BP systolic 116–130; BP diastolic 61–90; PULSE 73–107; RESP 16–20; TEMP 97.3–99.1; O2SAT 91–100
[2025-01-26 07:28] LABS: Lymphocytes # (auto) 0.6 10 ^3/uL (0.4-5.4); Monocytes # (auto) 0.8 10 ^3/uL (0-1.3)
[2025-01-26 07:32] LABS: Basophils # (auto) 0.1 10 ^3/uL (0-0.2); Basophils % (auto) 0.9 % (0.0-2.0); Eosinophils # (auto) 0.1 10 ^3/uL (0-0.8); Eosinophils % (auto) 0.6 % (0.0-7.0); Hematocrit 34.7 % (41.0-53.0); Lymphocytes % (auto) 5.7 % (10.0-50.0); Mean Corpuscular Hemoglobin 21.7 pg (28.0-32.0); Mean Corpuscular Hgb Conc. 31.7 g/dL (32.0-36.0); Mean Corpuscular Volume 68.4 fL (80.0-100.0); Monocytes % (auto) 8.1 % (0.0-12.0); Neutrophils # (auto) 8.4 10 ^3/uL (1.6-8.6); Neutrophils % (auto) 84.7 % (37.0-80.0); Nucleated Red Blood Cells % 0.1 %; Platelet Count (auto) 234 10^3/uL (140-450); Red Blood Cells 5.07 10^6/uL (4.5-5.90); Red Cell Distribution Width 20.2 % (11.8-14.3); White Blood Cell 9.9 10^3/uL (4.4-10.8)
[2025-01-26 08:01] LABS: Anion Gap 11 (5-15); BUN/Creatinine Ratio 20.4 (10.0-20.0); Blood Urea Nitrogen 19 mg/dL (9-23); Calcium 9.6 mg/dL (8.7-10.4); Carbon Dioxide 22 mmol/L (20-31); Chloride 105 mmol/L (98-107); Glucose 95 mg/dL (74-106); Magnesium 1.7 mg/dL (1.6-2.6); Potassium 3.8 mmol/L (3.5-5.1); Sodium 138 mmol/L (136-145); Total Protein 7.7 g/dL (5.7-8.2)
[2025-01-26 08:08] LABS: Alanine Aminotransferase 44 U/L (7-40); Albumin 3.2 g/dL (3.2-4.8); Alkaline Phosphatase 559 U/L (46-116); Aspartate Aminotransferase 76 U/L (13-40); Bilirubin, Total 1.7 mg/dL (0.2-1.0)
--- NOTE | 2025-01-26 18:09 | DVHPN2 ---
Subjective 01/26 patient is still on oxygen, still has some rales lower lobes bilaterally, pitting edema bilateral lower extremities 2+. We will continue diuresis, last 24 hour was 1.4 L output. Patient has life vest at home in his advised to have somebody bring it as patient was high risk for cardiac arrhythmias.. Cardiology following and want to start Jardiance on top of Aldactone for GDM T for heart failure. Continue diuresis today. Reviewed: H&P Changes from previous H/P or p: No Changes General: Per HPI Objective Vitals Vital Signs Date Time Temp Pulse Resp B/P (MAP) Pulse Ox O2 Delivery O2 Flow Rate FiO2 01/26/25 17:00 100 20 130/87 (101) 91 01/26/25 14:34 Nasal Cannula* 2 28 01/26/25 08:51 98.3 98.3 Intake/Output Intake and Output 01/26/25 07:00 Intake Total 1375 ml Output Total 1400 ml Balance -25 ml Intake Oral 1125 ml IV Total 250 ml Output Urine Total 1400 ml # Voids 3 Exam General Appearance: Alert, Oriented X3, Cooperative, mild distress HEENT: Atraumatic, Mucous membranes moist/pink Respiratory: Clear to auscultation, Normal air movement, Bilateral lung crackles Cardiovascular: Regular rate, Normal S1, Normal S2, No murmurs Abdominal: Active bowel sounds, Soft, mild distention, no tenderness Extremities: 2 to 3+ BLE, Normal pulses, No tenderness/swelling Skin: No Significant rash, except past surgical scars Neuro: Normal speech, sensorimotor deficits none Psych/Mental Status: Mental status NL, Mood NL Nurse was there as sharperone during examination Medications Current Medications Medications Dose Ordered Sig/Mikki Route Start Time Stop Time Status Last Admin Dose Admin Sodium Chloride 10 ml Q8HR IV 01/24/25 06:00 01/26/25 15:43 10 ML Ondansetron HCl 4 mg Q4HP PRN IV 01/24/25 00:30 Docusate Sodium 100 mg BIDPRN PRN PO 01/24/25 00:30 Acetaminophen 650 mg Q6HP PRN PO 01/24/25 00:30 01/26/25 08:57 650 MG Nitroglycerin 0.4 mg Q5MINP PRN SL 01/24/25 00:30 Morphine Sulfate 2 mg Q30M PRN IV 01/24/25 00:30 01/24/25 11:29 2 MG Aspirin 81 mg DAILY PO 01/24/25 10:00 01/26/25 08:56 81 MG Atorvastatin Calcium 40 mg HS PO 01/24/25 22:00 01/25/25 21:45 40 MG Metoprolol Tartrate 25 mg BID PO 01/24/25 10:00 01/26/25 08:56 25 MG Spironolactone 25 mg DAILY PO 01/24/25 10:00 01/26/25 08:56 25 MG Pantoprazole Sodium 40 mg DAILY IV 01/24/25 10:00 01/26/25 08:56 40 MG Levalbuterol HCl 0.625 mg Q6HR NEB 01/24/25 06:00 01/26/25 14:34 0.625 MG Ipratropium [place] 0.5 mg Q6HR NEB 01/24/25 06:00 01/26/25 14:34 0.5 MG Sacubitril/ Valsartan 1 tab BID PO 01/24/25 10:00 01/26/25 08:56 1 TAB Enoxaparin Sodium 40 mg Q24H SC 01/24/25 21:00 01/25/25 21:45 40 MG Diagnostic Test (Pha) 1 strip ACHS 01/24/25 07:00 01/26/25 17:16 1 STRIP Insulin Human Regular ACHS SC 01/24/25 07:00 01/25/25 21:46 3 UNITS Dextrose 50 ml UD PRN IV 01/24/25 01:30 Ceftriaxone Sodium 50 ml @ 100 mls/hr DAILY@09 IV 01/25/25 09:00 01/26/25 08:55 100 MLS/HR Doxycycline Hyclate 100 ml @ 50 mls/hr Q12H IV 01/24/25 10:00 01/26/25 10:30 50 MLS/HR Ergocalciferol 50,000 unit Q7D PO 01/24/25 12:30 01/24/25 14:37 50,000 UNIT Acetaminophen/ Hydrocodone Bitart 1 tab Q6HPRN PRN PO 01/24/25 13:00 01/25/25 19:03 1 TAB Furosemide 60 mg BID IV 01/25/25 22:00 01/26/25 08:56 60 MG Laboratory Results Laboratory Tests 01/26/25 06:30 Chemistry Test 01/26/25 06:30 Albumin 3.2 g/dL (3.2-4.8) Calcium Level 9.6 mg/dL (8.7-10.4) Magnesium Level 1.7 mg/dL (1.6-2.6) Total Protein 7.7 g/dL (5.7-8.2) LFT Test 01/26/25 06:30 Alanine Aminotransferase (ALT) 44 U/L (7-40) H Alkaline Phosphatase 559 U/L (46-116) H Aspartate Amino Transferase (AST) 76 U/L (13-40) H Total Bilirubin 1.7 mg/dL (0.2-1.0) H Urinalysis Test 01/24/25 23:19 Urine Color Light-yellow (Yellow) Urine Clarity Clear (Clear) Urine pH 5.0 (5.0-9.0) Urine Specific [place] 1.009 (1.001-1.035) Urine Protein Negative (Negative) Urine Ketones Negative (Negative) Urine Blood Negative /uL (Negative) Urine Nitrite Negative (Negative) Urine Bilirubin Negative (Negative) Urine Urobilinogen Normal mg/dL (Negative) Urine Leukocyte Esterase Negative /uL (Negative) Urine RBC 1 /hpf (0 - 3) Urine Microscopic WBC 1 /HPF (0-3) Urine Squamous Epithelial Cells None seen /hpf (<5) Urine Bacteria None seen /hpf (None Seen) Urine Hyaline Casts Few /lpf (0 - 2) Urine Glucose Normal mg/dL (Normal) Labs and/or images reviewed: Labs reviewed by me, Image(s) reviewed by me Assessment/Plan Assessment/Plan 01/26 patient is still on oxygen, still has some rales lower lobes bilaterally, pitting edema bilateral lower extremities 2+. We will continue diuresis, last 24 hour was 1.4 L output. Patient has life vest at home in his advised to have somebody bring it as patient was high risk for cardiac arrhythmias.. Cardiology following and want to start Jardiance on top of Aldactone for GDM T for heart failure. Continue diuresis today. # Acute hypoxic respiratory failure likely due to acute exacerbation of HFrEF # Acute exacerbation of HFrEF # R/o pneumonia # HTN # HLD # Severe tricuspid regurgitation - Initiated GDM T, - Echocardiogram showed LVEF 10% - elevated BNP - Lasix 60 mg IV b.i.d. - Entresto, metoprolol, Aldactone, added Jardiance - Lipitor - strict I and Os -bi consultant evaluated the patient and advised to continue current management # History of cirrhosis of liver # Liver mass likely hepatocellular carcinoma # Transaminitis likely due to liver mass/hepatocellular carcinoma # Ascites # Hepatitis-C positive # Status post ERCP on 12/22/2024 - outpatient follow up with the GI # T2 DM - Accu-Cheks Protonix Lovenox Diabetic diet if tolerates Goals of care discussed with the patient for more than 29 minutes: Full code status Plan discussed with: Patient My Orders Orders - WEI MELGAR MD Procedure Category Date Status Time Abdomen Limited US 01/26/25 Taken 13:47 Gamma Glutamyl LAB 01/27/25 Verified Transpeptidase 04:00 January Shower SOPHIA 01/26/25 In Process 16:22 Date of Service: January 26, 2025 Billing Provider: WEI MELGAR MD Common Visit Codes: [id number] INP/OBS CARE(HIGH) WEI MELGAR MD January 26, 2025 18:09
--- NOTE | 2025-01-26 18:40 | DVH ---
CLINICAL INFORMATION: Elevated ALP. TECHNIQUE: Grayscale sonographic imaging of the right upper quadrant of the abdomen was performed, a ssisted by color Doppler techniques. COMPARISON: CT dated 01/11/2025. FINDINGS: The gallbladder wall measures 9 mm in thickness, abnormally thickened. No stones are see n. Negative reported sonographic malave's sign. Small amount of pericholecystic fluid. The common fort[place] e duct is not visualized. Nodular contour of the liver, may be seen with cirrhosis in the appropriate clinical setting. Liver i s enlarged, measuring up to 19.8 cm in craniocaudal dimension. Perihepatic ascites visualized. The pancreas is obscured by bowel gas. The right kidney measures 11.2 cm. There is no hydronephrosis. Right renal cortical echogenicity a nd cortical thickness are within normal limits. Bilateral pleural effusions are seen. IMPRESSION: 1. Nodular contour of the liver, may be seen with cirrhosis. Hepatomegaly also noted. 2. Ascites. 3. Abnormally thickened gallbladder wall with pericholecystic fluid, may be due to 3rd spacing of flu id and ascites, although acute cholecystitis can not be excluded. Negative reported sonographic danis y's sign. Correlate with clinical findings. 4. Bilateral pleural effusions. 5. Difficult examination due to body habitus. Common bile duct was not able to be visualized. Pancre as was not visualized.
[2025-01-27] VITALS (18 sets, daily range): BP systolic 117–154; BP diastolic 74–82; PULSE 67–101; RESP 16–19; TEMP 98–99.7; O2SAT 98–100
[2025-01-27 09:16] LABS: Basophils # (auto) 0.1 10 ^3/uL (0-0.2); Basophils % (auto) 0.6 % (0.0-2.0); Eosinophils # (auto) 0 10 ^3/uL (0-0.8); Eosinophils % (auto) 0.3 % (0.0-7.0); Hematocrit 30.7 % (41.0-53.0); Hemoglobin 9.6 g/dL (13.5-17.5); Lymphocytes # (auto) 0.6 10 ^3/uL (0.4-5.4); Lymphocytes % (auto) 6.6 % (10.0-50.0); Mean Corpuscular Hemoglobin 21.3 pg (28.0-32.0); Mean Corpuscular Hgb Conc. 31.4 g/dL (32.0-36.0); Mean Corpuscular Volume 67.7 fL (80.0-100.0); Monocytes # (auto) 0.9 10 ^3/uL (0-1.3); Monocytes % (auto) 9.9 % (0.0-12.0); Neutrophils # (auto) 7.2 10 ^3/uL (1.6-8.6); Neutrophils % (auto) 82.6 % (37.0-80.0); Platelet Count (auto) 178 10^3/uL (140-450); Red Blood Cells 4.53 10^6/uL (4.5-5.90); Red Cell Distribution Width 19.3 % (11.8-14.3); White Blood Cell 8.7 10^3/uL (4.4-10.8)
[2025-01-27 11:09] LABS: Anion Gap 10 (5-15); BUN/Creatinine Ratio 23.3 (10.0-20.0); Blood Urea Nitrogen 20 mg/dL (9-23); Calcium 9.1 mg/dL (8.7-10.4); Carbon Dioxide 22 mmol/L (20-31); Chloride 105 mmol/L (98-107); Glucose 103 mg/dL (74-106); Magnesium 1.6 mg/dL (1.6-2.6); Potassium 3.8 mmol/L (3.5-5.1); Sodium 137 mmol/L (136-145); Total Protein 7.2 g/dL (5.7-8.2)
[2025-01-27 11:10] LABS: Alanine Aminotransferase 41 U/L (7-40); Alkaline Phosphatase 492 U/L (46-116); Aspartate Aminotransferase 53 U/L (13-40)
[2025-01-27 11:11] LABS: Bilirubin, Total 1.7 mg/dL (0.2-1.0)
--- NOTE | 2025-01-27 13:56 | DVHPNRES ---
Progress Note Date Seen: January 27, 2025 Resident Creating Document: MENDOZA STANTON RESIDENT Medical Necessity Reason Pt with a Central, PICC or Fol: No Subjective Review of Systems Patient seen and examined at the bedside. Patient reported mild improvement in his symptoms since admission, reported no new complaints. Lasix changed to 60 mg t.i.d. continue strict I&Os and fluid restriction Patient reports: Feels better Objective vital signs Vital Sign Date Time Temp Pulse Resp B/P (MAP) Pulse Ox O2 Delivery O2 Flow Rate FiO2 01/27/25 11:17 67 18 100 01/27/25 11:10 Nasal Cannula 2.0 01/27/25 11:10 28 01/27/25 09:54 111/63 01/27/25 09:00 99.3 99.3 Total Intake and Output 01/26/25 01/26/25 01/27/25 15:00 23:00 07:00 Intake Total 150 ml 340 ml Output Total 540 ml Balance 150 ml -200 ml medications Current Medications Medications Dose Ordered Sig/Mikki Route Start Time Stop Time Status Last Admin Dose Admin Sodium Chloride 10 ml Q8HR IV 01/24/25 06:00 01/27/25 05:30 10 ML Ondansetron HCl 4 mg Q4HP PRN IV 01/24/25 00:30 Docusate Sodium 100 mg BIDPRN PRN PO 01/24/25 00:30 Acetaminophen 650 mg Q6HP PRN PO 01/24/25 00:30 01/26/25 08:57 650 MG Nitroglycerin 0.4 mg Q5MINP PRN SL 01/24/25 00:30 Morphine Sulfate 2 mg Q30M PRN IV 01/24/25 00:30 01/24/25 11:29 2 MG Aspirin 81 mg DAILY PO 01/24/25 10:00 01/27/25 08:54 81 MG Atorvastatin Calcium 40 mg HS PO 01/24/25 22:00 01/26/25 21:32 40 MG Metoprolol Tartrate 25 mg BID PO 01/24/25 10:00 01/27/25 08:54 25 MG Spironolactone 25 mg DAILY PO 01/24/25 10:00 01/27/25 08:54 25 MG Pantoprazole Sodium 40 mg DAILY IV 01/24/25 10:00 01/27/25 08:53 40 MG Levalbuterol HCl 0.625 mg Q6HR NEB 01/24/25 06:00 01/27/25 11:11 0.625 MG Ipratropium [place] 0.5 mg Q6HR NEB 01/24/25 06:00 01/27/25 11:10 0.5 MG Sacubitril/ Valsartan 1 tab BID PO 01/24/25 10:00 01/27/25 08:54 1 TAB Enoxaparin Sodium 40 mg Q24H SC 01/24/25 21:00 01/26/25 23:04 40 MG Diagnostic Test (Pha) 1 strip ACHS 01/24/25 07:00 01/27/25 11:55 1 STRIP Insulin Human Regular ACHS SC 01/24/25 07:00 01/27/25 11:54 2 UNITS Dextrose 50 ml UD PRN IV 01/24/25 01:30 Ceftriaxone Sodium 50 ml @ 100 mls/hr DAILY@09 IV 01/25/25 09:00 01/27/25 08:53 100 MLS/HR Doxycycline Hyclate 100 ml @ 50 mls/hr Q12H IV 01/24/25 10:00 01/27/25 10:12 50 MLS/HR Ergocalciferol 50,000 unit Q7D PO 01/24/25 12:30 01/24/25 14:37 50,000 UNIT Acetaminophen/ Hydrocodone Bitart 1 tab Q6HPRN PRN PO 01/24/25 13:00 01/25/25 19:03 1 TAB Furosemide 60 mg TID IV 01/27/25 14:00 Examination Pt is lying on bed General Appearance: Alert, Oriented X3, Cooperative, mild distress HEENT: Atraumatic, Mucous membranes moist/pink Respiratory: Clear to auscultation, Normal air movement, Bilateral lung crackles Cardiovascular: Regular rate, Normal S1, Normal S2, No murmurs Abdominal: Active bowel sounds, Soft, mild distention, no tenderness Extremities: 2+ BLE, Normal pulses, No tenderness/swelling Skin: No Significant rash, except past surgical scars Neuro: Normal speech, sensorimotor deficits none Psych/Mental Status: Mental status NL, Mood NL Nurse was there as sharperone during examination laboratory and microbiology Laboratory Tests 01/27/25 04:50 Test 01/27/25 04:50 Range/Units Serum Glucose 103 74-106 mg/dL Labs and/or images reviewed: Labs reviewed by me, Image(s) reviewed by me Problem List/Assessment/Plan Problem List/Assessment/Plan # Acute hypoxic respiratory failure likely due to acute exacerbation of HFrEF # Acute exacerbation of HFrEF # R/o pneumonia # HTN # HLD # Severe tricuspid regurgitation - Initiated GDM T, - Echocardiogram showed LVEF 10% - elevated BNP - Lasix 60 mg TID - Entresto, metoprolol, Aldactone - Lipitor - strict I and Os - multi site leasing consultant evaluated the patient and advised to continue current management # History of cirrhosis of liver # Liver mass likely hepatocellular carcinoma # Transaminitis likely due to liver mass/hepatocellular carcinoma # Ascites # Hepatitis-C positive # Status post ERCP on 12/22/2024 - outpatient follow up with the GI # T2 DM - Accu-Cheks Protonix Lovenox Diabetic diet if tolerates Goals of care discussed with the patient for more than 29 minutes: Full code status Case discussed with Dr. Dickens, patient and RN Plan discussed with: Patient My Orders My Orders Orders - MENDOZA STANTON Procedure Category Date Status Time Furosemide Injection PHA 01/27/25 In Process (Lasix Injection) 14:00 MENDOZA STANTON January 27, 2025 13:56
[2025-01-27] MEDS: FUROSEMIDE 100 MG/10ML VIAL IV SCH (14:02)
[2025-01-28] VITALS (15 sets, daily range): BP systolic 104–126; BP diastolic 69–79; PULSE 70–99; RESP 16–19; TEMP 97.5–98.6; O2SAT 94–100
[2025-01-28 10:11] LABS: Basophils # (auto) 0 10 ^3/uL (0-0.2); Basophils % (auto) 0.5 % (0.0-2.0); Eosinophils # (auto) 0 10 ^3/uL (0-0.8); Lymphocytes # (auto) 0.5 10 ^3/uL (0.4-5.4)
[2025-01-28 10:16] LABS: Eosinophils % (auto) 0.1 % (0.0-7.0); Hematocrit 30.1 % (41.0-53.0); Hemoglobin 9.6 g/dL (13.5-17.5); Lymphocytes % (auto) 7.3 % (10.0-50.0); Mean Corpuscular Hemoglobin 21.4 pg (28.0-32.0); Mean Corpuscular Hgb Conc. 31.7 g/dL (32.0-36.0); Mean Corpuscular Volume 67.4 fL (80.0-100.0); Monocytes # (auto) 0.7 10 ^3/uL (0-1.3); Monocytes % (auto) 9.2 % (0.0-12.0); Neutrophils # (auto) 5.9 10 ^3/uL (1.6-8.6); Neutrophils % (auto) 82.9 % (37.0-80.0); Nucleated Red Blood Cells % 0.1 %; Platelet Count (auto) 178 10^3/uL (140-450); Red Blood Cells 4.47 10^6/uL (4.5-5.90); Red Cell Distribution Width 19.6 % (11.8-14.3); White Blood Cell 7.2 10^3/uL (4.4-10.8)
[2025-01-28 10:23] LABS: Alanine Aminotransferase 37 U/L (7-40); Anion Gap 9 (5-15); Blood Urea Nitrogen 17 mg/dL (9-23); Calcium 8.8 mg/dL (8.7-10.4); Carbon Dioxide 25 mmol/L (20-31); Chloride 103 mmol/L (98-107); Sodium 137 mmol/L (136-145); Total Protein 6.8 g/dL (5.7-8.2)
[2025-01-28 10:27] LABS: Albumin 2.8 g/dL (3.2-4.8); Alkaline Phosphatase 493 U/L (46-116); Aspartate Aminotransferase 56 U/L (13-40); Bilirubin, Total 1.6 mg/dL (0.2-1.0); Glucose 169 mg/dL (74-106); Magnesium 1.5 mg/dL (1.6-2.6); Potassium 3.4 mmol/L (3.5-5.1)
[2025-01-28] MEDS ORDERED: POTASSIUM CHL 20MEQ/100ML 100 ML IV SCH (11:45)
[2025-01-28] MEDS: POTASSIUM CHL 20MEQ/50ML 50 ML IV SCH (13:15)
--- NOTE | 2025-01-28 13:51 | DVHPNRES ---
Progress Note Date Seen: January 28, 2025 Resident Creating Document: MENDOZA STANTON RESIDENT Medical Necessity Reason Pt with a Central, PICC or Fol: No Subjective Review of Systems Patient seen and examined at the bedside. Patient reported improvement in his symptoms since admission. No new complaints. Improvement in his edema so added metolazone along with the Lasix. Strictly monitor in's and out's Objective vital signs Vital Sign Date Time Temp Pulse Resp B/P (MAP) Pulse Ox O2 Delivery O2 Flow Rate FiO2 01/28/25 12:05 89 16 100 01/28/25 10:00 Nasal Cannula* 2 28 01/28/25 09:50 111/75 01/28/25 09:00 97.9 97.9 Total Intake and Output 01/27/25 01/27/25 01/28/25 15:00 23:00 07:00 Intake Total 250 ml 900 ml Balance 250 ml 900 ml medications Current Medications Medications Dose Ordered Sig/Mikki Route Start Time Stop Time Status Last Admin Dose Admin Sodium Chloride 10 ml Q8HR IV 01/24/25 06:00 01/28/25 06:02 10 ML Ondansetron HCl 4 mg Q4HP PRN IV 01/24/25 00:30 Docusate Sodium 100 mg BIDPRN PRN PO 01/24/25 00:30 Acetaminophen 650 mg Q6HP PRN PO 01/24/25 00:30 01/28/25 06:00 650 MG Nitroglycerin 0.4 mg Q5MINP PRN SL 01/24/25 00:30 Morphine Sulfate 2 mg Q30M PRN IV 01/24/25 00:30 01/24/25 11:29 2 MG Aspirin 81 mg DAILY PO 01/24/25 10:00 01/28/25 08:51 81 MG Atorvastatin Calcium 40 mg HS PO 01/24/25 22:00 01/27/25 22:51 40 MG Metoprolol Tartrate 25 mg BID PO 01/24/25 10:00 01/28/25 08:50 25 MG Spironolactone 25 mg DAILY PO 01/24/25 10:00 01/28/25 08:50 25 MG Pantoprazole Sodium 40 mg DAILY IV 01/24/25 10:00 01/28/25 08:50 40 MG Levalbuterol HCl 0.625 mg Q6HR NEB 01/24/25 06:00 01/28/25 11:52 0.625 MG Ipratropium [place] 0.5 mg Q6HR NEB 01/24/25 06:00 01/28/25 11:52 0.5 MG Sacubitril/ Valsartan 1 tab BID PO 01/24/25 10:00 01/28/25 08:50 1 TAB Enoxaparin Sodium 40 mg Q24H SC 01/24/25 21:00 01/27/25 22:53 40 MG Diagnostic Test (Pha) 1 strip ACHS 01/24/25 07:00 01/28/25 11:47 1 STRIP Insulin Human Regular ACHS SC 01/24/25 07:00 01/27/25 17:17 2 UNITS Dextrose 50 ml UD PRN IV 01/24/25 01:30 Ceftriaxone Sodium 50 ml @ 100 mls/hr DAILY@09 IV 01/25/25 09:00 01/28/25 08:50 100 MLS/HR Doxycycline Hyclate 100 ml @ 50 mls/hr Q12H IV 01/24/25 10:00 01/28/25 10:09 50 MLS/HR Ergocalciferol 50,000 unit Q7D PO 01/24/25 12:30 01/24/25 14:37 50,000 UNIT Acetaminophen/ Hydrocodone Bitart 1 tab Q6HPRN PRN PO 01/24/25 13:00 01/25/25 19:03 1 TAB Furosemide 60 mg TID IV 01/27/25 14:00 01/28/25 06:00 60 MG Magnesium Sulfate/ Dextrose 100 ml @ 100 mls/hr Q1HR IV 01/28/25 12:00 01/28/25 13:59 Potassium Chloride 100 ml @ 50 mls/hr Q2H IV 01/28/25 11:45 01/28/25 15:44 UNV Metolazone 10 mg DAILY PO 01/29/25 10:00 Potassium Chloride 50 ml @ 25 mls/hr Q2H IV 01/28/25 13:15 01/28/25 17:14 Examination Pt is lying on bed General Appearance: Alert, Oriented X3, Cooperative, mild distress HEENT: Atraumatic, Mucous membranes moist/pink Respiratory: Clear to auscultation, Normal air movement, Bilateral lung crackles Cardiovascular: Regular rate, Normal S1, Normal S2, No murmurs Abdominal: Active bowel sounds, Soft, mild distention, no tenderness Extremities: 2+ BLE improving, Normal pulses, No tenderness/swelling Skin: No Significant rash, except past surgical scars Neuro: Normal speech, sensorimotor deficits none Psych/Mental Status: Mental status NL, Mood NL Nurse was there as sharperone during examination laboratory and microbiology Laboratory Tests 01/28/25 10:00 Test 01/28/25 10:00 Range/Units Serum Glucose 169 H 74-106 mg/dL Labs and/or images reviewed: Labs reviewed by me, Image(s) reviewed by me Problem List/Assessment/Plan Problem List/Assessment/Plan # Acute hypoxic respiratory failure likely due to acute exacerbation of HFrEF # Acute exacerbation of HFrEF # R/o pneumonia # HTN # HLD # Severe tricuspid regurgitation - Initiated GDM T, - Echocardiogram showed LVEF 10% - elevated BNP - Lasix 60 mg TID - Entresto, metoprolol, Aldactone - Lipitor - strict I and Os - information systems consultant evaluated the patient and advised to continue current management - metolazone # History of cirrhosis of liver # Liver mass likely hepatocellular carcinoma # Transaminitis likely due to liver mass/hepatocellular carcinoma # Ascites # Hepatitis-C positive # Status post ERCP on 12/22/2024 - outpatient follow up with the GI # Hypokalemia # hypomagnesemia - Repleting - Monitor lab # T2 DM - Accu-Cheks Protonix Lovenox Diabetic diet if tolerates Care plan discussed with the family for more than 27 minutes Goals of care discussed with the patient for more than 29 minutes: Full code status Case discussed with Dr. Dickens, patient and RN. Plan discussed with: Patient My Orders My Orders Orders - MENDOZA STANTON RESIDENT Procedure Category Date Status Time * Commodities Clerk CONS 01/27/25 Transmitted Consult Strict I & O SOPHIA 01/28/25 In Process 11:41 Magnesium Sulfate PHA 01/28/25 In Process 1gm/100ml 12:00 Metolazone (Zaroxolyn) PHA 01/29/25 In Process 10:00 Potassium Chl PHA 01/28/25 In Process 20meq/50ml (Potassium 13:15 Dietary Evaluation Review Comments: 1) Consider CCHO 75 + cardiac diet 2) Refer CDE on DC 3) Continue current plan of care Expected Outcomes/Goals: serum blood glucose to improve FU 3-5 days MENDOZA STANTON RESIDENT January 28, 2025 13:51
[2025-01-28] MEDS: metOLazone 5 MG TAB PO ONE (15:36)
[2025-01-28] MEDS: MAGNESIUM SULFATE 1GM/100ML 100 ML IV SCH ×2 (15:36→17:33)
[2025-01-28] MEDS: POTASSIUM CHL 20MEQ/100ML 100 ML IV SCH (17:30)
[2025-01-28] MEDS: POTASSIUM CHL 20 Meq TABLET PO ONE (21:48)
[2025-01-29] VITALS (13 sets, daily range): BP systolic 122–138; BP diastolic 70–88; PULSE 67–100; RESP 14–19; TEMP 97.5–98.7; O2SAT 93–100
[2025-01-29 06:38] LABS: Basophils # (auto) 0 10 ^3/uL (0-0.2); Eosinophils # (auto) 0 10 ^3/uL (0-0.8); Eosinophils % (auto) 0.5 % (0.0-7.0); Hemoglobin 10.2 g/dL (13.5-17.5); Lymphocytes # (auto) 0.6 10 ^3/uL (0.4-5.4); Monocytes # (auto) 0.7 10 ^3/uL (0-1.3); Neutrophils # (auto) 5.9 10 ^3/uL (1.6-8.6); Nucleated Red Blood Cells % 0.1 %; Platelet Count (auto) 167 10^3/uL (140-450); White Blood Cell 7.3 10^3/uL (4.4-10.8)
[2025-01-29 06:41] LABS: Basophils % (auto) 0.4 % (0.0-2.0); Hematocrit 31.8 % (41.0-53.0); Lymphocytes % (auto) 8.4 % (10.0-50.0); Mean Corpuscular Hemoglobin 21.3 pg (28.0-32.0); Mean Corpuscular Volume 66.7 fL (80.0-100.0); Monocytes % (auto) 9.3 % (0.0-12.0); Neutrophils % (auto) 81.4 % (37.0-80.0); Red Blood Cells 4.77 10^6/uL (4.5-5.90)
[2025-01-29 07:08] LABS: Alanine Aminotransferase 38 U/L (7-40); Anion Gap 12 (5-15); BUN/Creatinine Ratio 26.3 (10.0-20.0); Calcium 8.7 mg/dL (8.7-10.4); Carbon Dioxide 26 mmol/L (20-31); Chloride 98 mmol/L (98-107); Magnesium 1.8 mg/dL (1.6-2.6); Potassium 3.7 mmol/L (3.5-5.1); Sodium 136 mmol/L (136-145); Total Protein 7.1 g/dL (5.7-8.2)
[2025-01-29 07:09] LABS: Alkaline Phosphatase 560 U/L (46-116); Aspartate Aminotransferase 69 U/L (13-40); Bilirubin, Total 1.7 mg/dL (0.2-1.0); Blood Urea Nitrogen 25 mg/dL (9-23); Glucose 69 mg/dL (74-106)
--- NOTE | 2025-01-29 07:47 | DVHINCON2 ---
Date of service: January 29, [address] Steele Reason for Consultation EP Perspective/Evaluation for ICD History of Present Illness This is a 74-year old male who initially presented with shortness of breath for approximately 3 days prior to initial presentation. Patient does have chronic systolic heart failure which he is on life vest therapy as outpatient. He reports he is managed by an outside map compiler however he himself cannot recall the cardiologists name. At present Echocardiogram has revealed an LVEF of 10% consistent with end stage dilated heart failure. Throughout course of present hospitalization, patient was initiated on GDMT including Entresto, Metoprolol, and Aldactone. EP services were subsequently involved by primary team request for EP aspects of care. Past Medical History Past medical history includes chronic systolic heart failure on life vest therapy, hypertension, diabetes mellitus II, hyperlipidemia, cirrhosis, with history of suspected liver mass likely hepaocellular carcinoma, hepatitis C, and status post ERCP stent placed 12/22/2024 Echocardiogram: (01/24/2025) revealed LVEF of 10% by visual estimate, dilated LV. RV dysfunction mild mitral regurg severe tricuspid regurg biatrial enlargement. End stage dilated heart failure Past Surgical History Reviewed Family History: Hypertension G8 MOTHER Ischemic heart disease G8 MOTHER G8 FATHER Allergies: Coded Allergies: NO KNOWN ALLERGIES (Unverified , 01/11/25) Home Meds Active Scripts Empagliflozin (Jardiance) 10 Mg Tab, 10 MG PO DAILY for 30 Days, #30 TAB Prov:MENDOZA STANTON [facility] 01/29/25 Furosemide (Lasix) 40 Mg Tab, 40 MG PO DAILY for 30 Days, #30 TAB Prov:MENDOZA STANTON [facility] 01/29/25 Metoprolol Succinate (Metoprolol Succinate Er) 25 Mg Tab, 25 MG PO DAILY for 30 Days, #30 TAB Prov:MENDOZA STANTON [facility] 01/29/25 Spironolactone (Aldactone) 25 Mg Tab, 25 MG PO DAILY for 30 Days, #30 TAB Prov:MENDOZA STANTON [facility] 01/29/25 Sacubitril-Valsartan (Entresto 24-26 mg) 1 Tab Tab, 1 TAB PO BID for 30 Days, #60 TAB Prov:MENDOZA STANTON [facility] 01/29/25 Ergocalciferol (VITAMIN D 06818 UNIT) 50,000 [place], [address] UNIT PO Q7D for 60 Days, #8 CAP Prov:MENDOZA STANTON [facility] 01/29/25 Docusate Sodium (Docusate Sodium) 100 Mg Cap, 100 MG PO BIDPRN PRN for 30 Days, #60 CAP Prov:MENDOZA STANTON [facility] 01/29/25 Atorvastatin Calcium (ATORVASTATIN CALCIUM) 20 Mg Tab, 40 MG PO HS for 30 Days, #30 TAB Prov:MENDOZA STANTON [facility] 01/29/25 Aspirin (Aspirin Low Dose) 81 Mg Tab, 81 MG PO DAILY for 30 Days, #30 TAB Prov:MENDOZA STANTON [facility] 01/29/25 Ondansetron Odt 4MG Tab (ZOFRAN PO) 4 Mg Tb, 4 MG PO QID PRN, #30 TAB ODT TAB-DISSOLVE IN MOUTH, THEN SWALLOW Prov:WILFRED CALL MD 01/14/25 Tramadol HCl (Tramadol HCl) 50 Mg Tab, 50 MG PO QID PRN, #40 TAB Prov:WILFRED CALL MD 01/14/25 Discontinued Scripts Cefdinir (Cefdinir) 300 Mg Cap, 1 CAP PO BID, #14 CAP Prov:WILFRED CALL MD 01/14/25 Current Medications Current Medications Medications (Trade) Dose Ordered Sig/Mikki Route PRN Reason Start Time Stop Time Status Last Admin Magnesium Sulfate/ Dextrose 100 ml @ 100 mls/hr Q1HR IV 01/28/25 12:00 01/28/25 13:59 DC 01/28/25 17:32 Potassium Chloride 100 ml @ 50 mls/hr Q2H IV 01/28/25 11:45 01/28/25 15:44 UNV Metolazone (Zaroxolyn) 10 mg DAILY PO 01/29/25 10:00 Potassium Chloride 50 ml @ 25 mls/hr Q2H IV 01/28/25 13:15 01/28/25 17:14 DC Magnesium Sulfate/ Dextrose 100 ml @ 100 mls/hr Q1HR IV 01/28/25 18:00 01/28/25 18:59 DC Potassium Chloride 100 ml @ 50 mls/hr Q2H IV 01/28/25 17:30 01/28/25 20:12 DC 01/28/25 18:53 Review of Systems A 14-point review of systems is negative unless otherwise noted above Vital Signs Vital Signs Date Time Temp Pulse Resp B/P (MAP) Pulse Ox O2 Delivery O2 Flow Rate FiO2 01/29/25 06:43 89 14 100 01/29/25 06:35 Room Air 01/29/25 06:35 0 21 01/29/25 01:00 98.7 131/88 (102) 98.7 Physical Exam Heart: S1 and S2 regular. The patient is in sinus rhythm. Lungs: Scattered rhonchi. Abdomen: Benign. Extremities: Distal pulses palpable, 2+. With evidence for peripheral edema Labs/Diagnostic Data Labs Test 01/29/25 05:08 01/28/25 21:26 01/27/25 04:50 01/25/25 15:31 Range/Units White Blood Count 7.3 4.4-10.8 10^3/uL Red Blood Count 4.77 4.5-5.90 10^6/uL Hemoglobin 10.2 L 13.5-17.5 g/dL Hematocrit 31.8 L 41.0-53.0 % Mean Corpuscular Volume 66.7 L 80.0-100.0 fL Mean Corpuscular Hemoglobin 21.3 L 28.0-32.0 pg Mean Corpuscular Hemoglobin Concent 32.0 32.0-36.0 g/dL Red Cell Distribution Width 19.0 H 11.8-14.3 % Platelet Count 167 140-450 10^3/uL Mean Platelet Volume 8.5 6.9-10.8 fL Neutrophils (%) (Auto) 81.4 H 37.0-80.0 % Lymphocytes (%) (Auto) 8.4 L 10.0-50.0 % Monocytes (%) (Auto) 9.3 0.0-12.0 % Eosinophils (%) (Auto) 0.5 0.0-7.0 % Basophils (%) (Auto) 0.4 0.0-2.0 % Neutrophils # (Auto) 5.9 1.6-8.6 10 ^3/uL Lymphocytes # (Auto) 0.6 0.4-5.4 10 ^3/uL Monocytes # (Auto) 0.7 0-1.3 10 ^3/uL Eosinophils # (Auto) 0 0-0.8 10 ^3/uL Basophils # (Auto) 0 0-0.2 10 ^3/uL Nucleated Red Blood Cells 0.1 % Sodium Level 136 136-145 mmol/L Potassium Level 3.7 3.5-5.1 mmol/L Chloride Level 98 98-107 mmol/L Carbon Dioxide Level 26 20-31 mmol/L Anion Gap 12 5-15 Blood Urea Nitrogen 25 H 9-23 mg/dL Creatinine 0.95 0.700-1.30 mg/dL Glomerular Filtration Rate Calc 85 >90 mL/min BUN/Creatinine Ratio 26.3 H 10.0-20.0 Serum Glucose 69 #L 74-106 mg/dL Calcium Level 8.7 8.7-10.4 mg/dL Magnesium Level 1.8 1.6-2.6 mg/dL Total Bilirubin 1.7 H 0.2-1.0 mg/dL Aspartate Amino Transferase (AST) 69 H 13-40 U/L Alanine Aminotransferase (ALT) 38 7-40 U/L Alkaline Phosphatase 560 H 46-116 U/L Total Protein 7.1 5.7-8.2 g/dL Albumin 3.0 L 3.2-4.8 g/dL POC Glucose 178 H 70-106 mg/dl Gamma Glutamyl Transpeptidase 589 H <73 U/L Test 01/24/25 23:19 01/24/25 12:49 01/24/25 10:58 01/24/25 02:45 Range/Units Urine Color Light-yellow Yellow Urine Clarity Clear Clear Urine pH 5.0 5.0-9.0 Urine Specific [place] 1.009 1.001-1.035 Urine Protein Negative Negative Urine Ketones Negative Negative Urine Blood Negative Negative /uL Urine Nitrite Negative Negative Urine Bilirubin Negative Negative Urine Urobilinogen Normal Negative mg/dL Urine Leukocyte Esterase Negative Negative /uL Urine RBC 1 0 - 3 /hpf Urine Microscopic WBC 1 0-3 /HPF Urine Squamous Epithelial Cells None seen <5 /hpf Urine Bacteria None seen None Seen /hpf Urine Hyaline Casts Few 0 - 2 /lpf Urine Glucose Normal Normal mg/dL Urine Opiates Screen Neg NEGATIVE Urine Fentanyl Screen Neg NEGATIVE Urine Barbiturates Screen Neg NEGATIVE Urine Phencyclidine Screen Neg NEGATIVE Urine Amphetamines Screen Neg NEGATIVE Urine Benzodiazepines Screen Neg NEGATIVE Urine Cocaine Screen Neg NEGATIVE Urine Cannabinoids Screen Neg NEGATIVE Lactic Acid Level 2.3 *H 0.4-2.0 mmol/L Hemoglobin A1c 5.1 <5.7 % A1C Ammonia 15 11-32 umol/L Lipase 27 12-53 U/L Vitamin B12 Level 941 H 211-911 pg/mL Vitamin D 25-Hydroxy 27.3 L 30.0-100 ng/mL Folic Acid 8.94 >5.38 ng/mL Thyroid Stimulating Hormone (TSH) 2.60 0.55-4.78 uIU/mL Plasma/Serum Blood Alcohol < 3.0 <10 mg/dL Influenza Type A Antigen Negative Negative Influenza Type B Antigen Negative Negative SARS-CoV-2 Antigen (Rapid) Negative NEGATIVE Test 01/23/25 22:14 01/23/25 21:35 Range/Units Troponin I High Sensitivity 24 </=54 ng/L B-Type Natriuretic Peptide > 5000.00 0-100 pg/mL Plan/Recommendation ASSESSMENT: This is a 74-year old male who initially presented with shortness of breath for approximately 3 days prior to initial presentation. Patient does have chronic systolic heart failure which he is on life vest therapy as outpatient. He reports he is managed by an outside map compiler however he himself cannot recall the cardiologists name. At present Echocardiogram has revealed an LVEF of 10% consistent with end stage dilated heart failure. Throughout course of present hospitalization, patient was initiated on GDMT including Entresto, Metoprolol, and Aldactone. EP services were subsequently involved by primary team request for EP aspects of care. Past medical history includes chronic systolic heart failure on life vest therapy, hypertension, diabetes mellitus II, hyperlipidemia, cirrhosis, with history of suspected liver mass likely hepatocellular carcinoma, hepatitis C, and status post ERCP stent placed 12/22/2024 Echocardiogram: (01/24/2025) revealed LVEF of 10% by visual estimate, dilated LV. RV dysfunction mild mitral regurg severe tricuspid regurg biatrial enlargement. End stage dilated heart failure Dilated cardiomyopathy Chronic systolic heart failure Questionable hepatocellular carcinoma Hepatitis ELECTROPHYSIOLOGY SUGGESTIONS FOR MANAGEMENT: Will need outpatient reassessment for potential candidacy to undergo AICD implantation Proceed with use of Life Vest therapy for primary prevention of SCD upon discharge Proceed with GDMT as concurrent conditions permit during the interim Remainder of cardiac management as per interventional cardiology Management of comorbidities as per primary team Proceed with close rate and rhythm surveillance Proceed with close hemodynamic surveillance Proceed with optimized blood pressure control Transfuse to sustain HGB level above 7.0 Sustain Magnesium level greater than 2.0 Sustain Potassium level greater than 4.0 Follow up renal function and electrolytes Management in telemetry Follow up primary cardiology recommendations Will proceed to follow from an EP perspective Further recommendations per clinical progression All available diagnostic labs, EKG's, and images were personally reviewed Patient's status, findings, and plan of care was reviewed and discussed with supervising physician Dr. Lenz, who is in agreement with current plan of care. Plan of care discussed with and agreed upon by patient / primary RN Prognosis: Guarded / Poor Thank you for allowing me to participate in the care of this patient. Further recommendations based on patients clinical course and progression, primary attending, and other consultants. Will continue to follow with primary attending. If you have any questions or concerns, please do not hesitate to contact me. A total of 75 minutes was spent reviewing the patient record, examining the patient, making a diagnostic and therapeutic plan, discussing this plan with medical personnel, following up on diagnostic studies and following the patient for clinical stability excluding any and all procedures. At least 50% of this time was spent in direct, [id number] contact. Plan discussed with: Patient (Patient and Primary RN ) SARANYA KANG January 29, 2025 07:47
--- NOTE | 2025-01-29 08:57 | CONS ---
Pharmacy Clinical Information: CQM HF (non-EBBB given). Per medication reconciliation, patient was taking m etoprolol succinate 25mg at home. Please considering switching to succinate if patient's BP and HR are stable at the discretion of the cardiology team. MARIANNA LEVY PHARMACIST January 29, 2025 08:57
[2025-01-29] MEDS: metOLazone 5 MG TAB PO SCH (10:36)
[2025-01-29] MEDS ORDERED: FURO1TAB31 PO (11:58)
[2025-01-29] MEDS ORDERED: METO25TA93 PO (11:58)
[2025-01-29] MEDS ORDERED: ATOR20TA50 PO (11:58)
[2025-01-29] MEDS ORDERED: EMPA1TAB PO (11:58)
[2025-01-29] MEDS ORDERED: DOCU-265 PO (11:58)
[2025-01-29] MEDS ORDERED: SACU1TAB PO (11:58)
[2025-01-29] MEDS ORDERED: SPIR25TA PO (11:58)
[2025-01-29] MEDS ORDERED: ERGO1CAP23 PO (11:58)
[2025-01-29] MEDS ORDERED: ASPI-325 PO (11:58)
--- NOTE | 2025-01-29 15:00 | DVHDSRES ---
Discharge Summary Date of Admission Resident Creating Document: MENDOZA STANTON RESIDENT January 24, 2025 at 00:21 Date of Discharge: January 29, 2025 Admitting Diagnosis Shortness of breaths Labs/Diagnostic Data: Laboratory Results Test 01/29/25 10:56 01/29/25 05:08 01/27/25 04:50 01/25/25 15:31 POC Glucose 120 mg/dl (70-106) White Blood Count 7.3 10^3/uL (4.4-10.8) Red Blood Count 4.77 10^6/uL (4.5-5.90) Hemoglobin 10.2 g/dL (13.5-17.5) Hematocrit 31.8 % (41.0-53.0) Mean Corpuscular Volume 66.7 fL (80.0-100.0) Mean Corpuscular Hemoglobin 21.3 pg (28.0-32.0) Mean Corpuscular Hemoglobin Concent 32.0 g/dL (32.0-36.0) Red Cell Distribution Width 19.0 % (11.8-14.3) Platelet Count 167 10^3/uL (140-450) Mean Platelet Volume 8.5 fL (6.9-10.8) Neutrophils (%) (Auto) 81.4 % (37.0-80.0) Lymphocytes (%) (Auto) 8.4 % (10.0-50.0) Monocytes (%) (Auto) 9.3 % (0.0-12.0) Eosinophils (%) (Auto) 0.5 % (0.0-7.0) Basophils (%) (Auto) 0.4 % (0.0-2.0) Neutrophils # (Auto) 5.9 10 ^3/uL (1.6-8.6) Lymphocytes # (Auto) 0.6 10 ^3/uL (0.4-5.4) Monocytes # (Auto) 0.7 10 ^3/uL (0-1.3) Eosinophils # (Auto) 0 10 ^3/uL (0-0.8) Basophils # (Auto) 0 10 ^3/uL (0-0.2) Nucleated Red Blood Cells 0.1 % Sodium Level 136 mmol/L (136-145) Potassium Level 3.7 mmol/L (3.5-5.1) Chloride Level 98 mmol/L (98-107) Carbon Dioxide Level 26 mmol/L (20-31) Anion Gap 12 (5-15) Blood Urea Nitrogen 25 mg/dL (9-23) Creatinine 0.95 mg/dL (0.700-1.30) Glomerular Filtration Rate Calc 85 mL/min (>90) BUN/Creatinine Ratio 26.3 (10.0-20.0) Serum Glucose 69 mg/dL (74-106) Calcium Level 8.7 mg/dL (8.7-10.4) Magnesium Level 1.8 mg/dL (1.6-2.6) Total Bilirubin 1.7 mg/dL (0.2-1.0) Aspartate Amino Transferase (AST) 69 U/L (13-40) Alanine Aminotransferase (ALT) 38 U/L (7-40) Alkaline Phosphatase 560 U/L (46-116) Total Protein 7.1 g/dL (5.7-8.2) Albumin 3.0 g/dL (3.2-4.8) Gamma Glutamyl Transpeptidase 589 U/L (<73) Test 01/24/25 23:19 01/24/25 12:49 01/24/25 10:58 01/24/25 02:45 Urine Color Light-yellow (Yellow) Urine Clarity Clear (Clear) Urine pH 5.0 (5.0-9.0) Urine Specific [place] 1.009 (1.001-1.035) Urine Protein Negative (Negative) Urine Ketones Negative (Negative) Urine Blood Negative /uL (Negative) Urine Nitrite Negative (Negative) Urine Bilirubin Negative (Negative) Urine Urobilinogen Normal mg/dL (Negative) Urine Leukocyte Esterase Negative /uL (Negative) Urine RBC 1 /hpf (0 - 3) Urine Microscopic WBC 1 /HPF (0-3) Urine Squamous Epithelial Cells None seen /hpf (<5) Urine Bacteria None seen /hpf (None Seen) Urine Hyaline Casts Few /lpf (0 - 2) Urine Glucose Normal mg/dL (Normal) Urine Opiates Screen Neg (NEGATIVE) Urine Fentanyl Screen Neg (NEGATIVE) Urine Barbiturates Screen Neg (NEGATIVE) Urine Phencyclidine Screen Neg (NEGATIVE) Urine Amphetamines Screen Neg (NEGATIVE) Urine Benzodiazepines Screen Neg (NEGATIVE) Urine Cocaine Screen Neg (NEGATIVE) Urine Cannabinoids Screen Neg (NEGATIVE) Lactic Acid Level 2.3 mmol/L (0.4-2.0) Hemoglobin A1c 5.1 % A1C (<5.7) Ammonia 15 umol/L (11-32) Lipase 27 U/L (12-53) Vitamin B12 Level 941 pg/mL (211-911) Vitamin D 25-Hydroxy 27.3 ng/mL (30.0-100) Folic Acid 8.94 ng/mL (>5.38) Thyroid Stimulating Hormone (TSH) 2.60 uIU/mL (0.55-4.78) Plasma/Serum Blood Alcohol < 3.0 mg/dL (<10) Influenza Type A Antigen Negative (Negative) Influenza Type B Antigen Negative (Negative) SARS-CoV-2 Antigen (Rapid) Negative (NEGATIVE) Test 01/23/25 22:14 01/23/25 21:35 Troponin I High Sensitivity 24 ng/L (</=54) B-Type Natriuretic Peptide > 5000.00 pg/mL (0-100) Other Laboratory Tests 01/29/25 05:08 Brief Hx & Hospital Course: The patient is a 74-year-old male with a complex medical history including hypertension, type 2 diabetes mellitus, heart failure with reduced ejection fraction (HFrEF) at 25%, hyperlipidemia, cirrhosis, suspected hepatocellular carcinoma, and hepatitis C. He presented to the hospital with worsening shortness of breath over the past three days, accompanied by orthopnea, paroxysmal nocturnal dyspnea, central chest pain, palpitations, and leg swelling. A CT abdomen performed on January 11, 2025, revealed a mass in the upper abdomen with peripheral enhancement, moderate ascites, and a small right pleural effusion. The patient also has a history of a biliary stent placed on December 22, 2024, and was recently treated for sepsis secondary to this stent at [facility]. During this admission, the patient was evaluated for acute hypoxic respiratory failure likely due to an exacerbation of HFrEF, severe tricuspid regurgitation, and acute pneumonia. His treatment regimen included Lasix 60 mg TID (advanced the dose of Lasix as tolerated), Entresto, metoprolol, Aldactone, Lipitor, and metolazone for heart failure management. Additionally, Rocephin and doxycycline were administered for pneumonia. An echocardiogram showed a left ventricular ejection fraction (LVEF) of 10%, and elevated BNP levels were noted. The patient also had hypokalemia and hypomagnesemia, which were managed with repletion. Cardiology consultation recommended continuing current management and using a LifeVest at home. Patient required home oxygen, arranged as needed. The patient's condition improved during his hospital stay, and he was hemodynamically stable at the time of discharge. He was advised to follow up with cardiology for heart failure management and with gastroenterology for ERCP stent removal. The patient was also instructed to adhere to a healthy lifestyle, including diet and exercise, and to monitor his blood glucose levels regularly due to his diabetes. Outpatient follow-up appointments were scheduled to ensure ongoing care and management of his multiple health conditions. Pt is lying on bed General Appearance: Alert, Oriented X3, Cooperative, mild distress HEENT: Atraumatic, Mucous membranes moist/pink Respiratory: Clear to auscultation, Normal air movement, Bilateral lung crackles Cardiovascular: Regular rate, Normal S1, Normal S2, No murmurs Abdominal: Active bowel sounds, Soft, mild distention, no tenderness Extremities: 1- 2+ BLE improving, Normal pulses, No tenderness/swelling Skin: No Significant rash, except past surgical scars Neuro: Normal speech, sensorimotor deficits none Psych/Mental Status: Mental status NL, Mood NL Nurse was there as sharperone during examination Operations or Procedures ECHO Conclusion lvef 10% by visual estiamte dialted LV RV dysfunction milld mitral regurg severe tricuspid regurg biatrial enlargement end stage dilated heart failure ------- Bilateral lower extremity venous duplex No evidence of right or left femoropopliteal venous thrombosis. ------- TECHNIQUE: Grayscale sonographic imaging of the right upper quadrant of the abdomen was performed, assisted by color Doppler techniques. COMPARISON: CT dated 01/11/2025. 1. Nodular contour of the liver, may be seen with cirrhosis. Hepatomegaly also noted. 2. Ascites. 3. Abnormally thickened gallbladder wall with pericholecystic fluid, may be due to 3rd spacing of fluid and ascites, although acute cholecystitis can not be excluded. Negative reported sonographic malave's sign. Correlate with clinical findings. 4. Bilateral pleural effusions. 5. Difficult examination due to body habitus. Common bile duct was not able to be visualized. Pancreas was not visualized. Condition at Discharge: Stable Final Diagnosis/Problems List # Acute hypoxic respiratory failure likely due to acute exacerbation of HFrEF # Acute exacerbation of HFrEF # HTN # HLD # Severe tricuspid regurgitation # Acute Gram-positive/negative pneumonia # History of cirrhosis of liver # Liver mass likely hepatocellular carcinoma # Transaminitis likely due to liver mass/hepatocellular carcinoma # Ascites # Hepatitis-C positive # Status post ERCP on 12/22/2024 # Hypokalemia # hypomagnesemia # T2 DM with HbA1c 5.1 Discharge Disposition: Home Discharge Instruct/Medications Diet: Consistent carbohydrate, Cardiac 2g Na,low cholest Activity: No Restrictions, As Tolerated Follow Up/Referral: Cardiology GI for stent removal in biliary tract and follow up of cancer Medications: Aspirin 81 mg oral daily Atorvastatin 40 mg oral daily 1 time Jardiance 10 mg oral daily 1 time Lasix 40 mg oral daily 1 time Entresto oral 2 times daily Aldactone oral 1 time daily Vitamin-D 1 tab weekly Docusate 2 times daily as needed Discharge Statement: "Patient was advised to return to the ER or call 911 if any headaches, dizziness, shortness of breath, chest pain, abdominal pain, bleeding, fevers, or worsening of medical condition. Patient was counseled about treatment plan, medications, possible side effects, patient�verbalized understanding. All questions were answered to the best of my ability. This discharge took greater then 30 minutes in planning, reviewing documentation, counseling the patient, and discussing with other team members." ASSESSMENT ASSESSMENT Assessment # Acute hypoxic respiratory failure likely due to acute exacerbation of HFrEF # Acute exacerbation of HFrEF # HTN # HLD # Severe tricuspid regurgitation # Acute Gram-positive/negative pneumonia # History of cirrhosis of liver # Liver mass likely hepatocellular carcinoma # Transaminitis likely due to liver mass/hepatocellular carcinoma # Ascites # Hepatitis-C positive # Status post ERCP on 12/22/2024 # Hypokalemia # hypomagnesemia # T2 DM with HbA1c 5.1 MENDOZA STANTON RESIDENT January 29, 2025 15:00
== END 2025-01-29 17:00 | disposition home or self-care (01) | DRG 177 ==
LOC: ER 21:25 → OVERFLOW 01-24 00:21 → TELE-WESTW 01-24 03:30
PROVIDERS: ADMIT Student in an Organized Health Care Education/Training Program; ATTEND Student in an Organized Health Care Education/Training Program
DX: J15.69 Pneumonia due to other Gram-negative bacteria (principal); I50.23 Acute on chronic systolic (congestive) heart failure; J96.01 Acute respiratory failure with hypoxia; R18.8 Other ascites; I42.0 Dilated cardiomyopathy; C22.0 Liver cell carcinoma; J15.9 Unspecified bacterial pneumonia; Z20.822 Contact with and (suspected) exposure to COVID-19; B19.20 Unspecified viral hepatitis C without hepatic coma; E11.9 Type 2 diabetes mellitus without complications; K74.60 Unspecified cirrhosis of liver; E78.5 Hyperlipidemia, unspecified; J43.9 Emphysema, unspecified; I50.84 End stage heart failure; I34.0 Nonrheumatic mitral (valve) insufficiency; I07.1 Rheumatic tricuspid insufficiency; R74.01 Elevation of levels of liver transaminase levels; E87.6 Hypokalemia; E83.42 Hypomagnesemia; I11.0 Hypertensive heart disease with heart failure; F17.200 Nicotine dependence, unspecified, uncomplicated; D64.9 Anemia, unspecified; Z79.899 Other long term (current) drug therapy; Z79.2 Long term (current) use of antibiotics; Z82.49 Family history of ischemic heart disease and other diseases of the circulatory system; Z79.84 Long term (current) use of oral hypoglycemic drugs; Z79.82 Long term (current) use of aspirin; Z85.05 Personal history of malignant neoplasm of liver
CPT/HCPCS: 36415; 36600; 71045; 76705; 80053; 80307; 80320; 81001; 82140; 82306; 82607; 82746; 82805; 82962; 82977; 83036; 83605; 83690; 83735; 84443; 85025; 87426; 87804; 93005; 93306; 93970; 94640; G0378; J1815; J2405; J2470; J3480

== ENCOUNTER 2025-05-01 23:02 | Inpatient (IN) | payer MEDICARE, MEDICAID ==
[~2025-05-01] VITALS: Ht 195.6 cm; Wt 77.5 kg
[~2025-05-01 23:02] MED LIST changes: +ASPI-325 PO; +ATOR20TA50 PO; -CEFD300C2 PO; +DOCU-265 PO; +EMPA1TAB PO; +ERGO1CAP23 PO; +FURO1TAB31 PO; +METO25TA93 PO; +SACU1TAB PO; +SPIR25TA PO
[2025-05-02] VITALS (11 sets, daily range): BP systolic 135–149; BP diastolic 69–96; PULSE 74–87; RESP 16–20; TEMP 97.8–98.7; O2SAT 95–100
[2025-05-02 00:05] LABS: Nucleated Red Blood Cells % 0.1 %
[2025-05-02 00:06] LABS: Potassium 4.0 mmol/L (3.5-5.1); Sodium 143 mmol/L (136-145)
[2025-05-02 00:07] LABS: Anion Gap 8 (5-15); Calcium 9.1 mg/dL (8.7-10.4); Carbon Dioxide 25 mmol/L (20-31); Hematocrit 36.0 % (41.0-53.0); Hemoglobin 11.1 g/dL (13.5-17.5); Mean Corpuscular Hemoglobin 21.2 pg (28.0-32.0); Mean Corpuscular Volume 68.4 fL (80.0-100.0)
[2025-05-02 00:12] LABS: BUN/Creatinine Ratio 14.9 (10.0-20.0); Blood Urea Nitrogen 13 mg/dL (9-23); Glucose 79 mg/dL (74-106)
[2025-05-02 00:14] LABS: Chloride 110 mmol/L (98-107)
--- NOTE | 2025-05-02 00:31 | DVH ---
EXAM: XY CHEST XRAY 1 VIEW CLINICAL HISTORY: cp TECHNIQUE: Single AP view of the chest WID: COMPARISON: XY CHEST XRAY 1 VIEW on DOS: 01/23/25 FINDINGS: Lines and tubes: None Chest: Cardiomegaly and pulmonary vascular congestion. Calcified plaque projects over the aortic arch. Small right pleural effusion. Linear bibasilar scarring or atelectasis. No pneumothorax. The osseous structures are grossly intact. Multilevel thoracic spondylosis. IMPRESSION: Mild cardiomegaly, pulmonary vascular congestion, and small right pleural effusion.
--- NOTE | 2025-05-02 00:34 | ECG ---
[facility] Test Date: 2025-05-02 Test Time: 00:26:26 Pat Name: TIM NULL Department: ED Room: 0240T Gender: M Contract Associate: EDWARD : [id number] Requested By: TIA FREEMAN Order Number: [id number] Reading MD: Hardeep Tate Measurements Intervals [place] Rate: 80 P: 36 IA: 189 QRS: 60 QRSD: 100 T: 58 QT: 381 QTc: 440 Interpretive Statements Sinus rhythm Anterior infarct, old Electronically Signed On 05-06-2025 22:42:38 PDT by Hardeep Tate Please click the below link to view image of tracing.
--- NOTE | 2025-05-02 00:54 | ED.PDOC ---
History of Present Illness HPI Comments 74-year-old male who has presents with chief complaint of chest pain and bilateral leg swelling. Patient endorses on sudden, unprovoked, atraumatic onset of symptoms prior to going to bed, yesterday evening. Significant history of CHF at a reduced ejection fraction of 25%, who, HLD, HTN, liver cirrhosis, hep atitis-C, liver mass, ascites, severe tricuspid regurgitation, cardiac stent, ERCP, and pneumonia. Patient is not compliant with CHF medication for reasons he is unable to elaborate on. Denies any shortness of breath, palpitations, fever, chills, nausea, vomiting, or further associated symptoms. REVIEW OF SYSTEMS: General: No fever, no chills, or fatigue HEENT: No sore throat, no earache, no congestion, no neck pain. Cardiac: Chest pain. No palpitations. Lungs: No shortness of breath, no cough. GI: No nausea, no vomiting, no diarrhea, no constipation, no abdominal pain : No dysuria, frequency, or urgency. No hematuria. Musculoskeletal: Bilateral leg swelling. No joint pain Skin: No rash, no itching. Neuro: No headache, no dizziness, no weakness PHYSICAL EXAM: General: Awake, alert and oriented. No acute distress. Skin: Skin in warm, dry and intact. Appropriate color for ethnicity. HEENT: The head is normocephalic and atraumatic. Conjunctivae are clear without exudates or hemorrhage. Sclera is non-icteric. EOM are intact. No signs of nystagmus. Eyelids are normal in appearance without swelling or lesions. Oral mucosa is pink and moist. Prosthetic right eye Neck: The neck is supple with normal range of motion. + JVD. Cardiac: Heart rate and rhythm are normal. No murmurs, gallops, or rubs are auscultated. Respiratory: No signs of respiratory distress. Presence of rales bilaterally. Abdominal: Abdomen is soft, non-tender without distention, guarding or rigidity. Bowel sounds are present and normoactive in all four quadrants. Extremities: 1+ pitting edema, bilaterally; otherwise, remaining upper and lower extremities are atraumatic in appearance without deformity or edema. Neurological: The patient is awake, alert and oriented to person, place, and time with normal speech. Speech is clear. There is no facial asymmetry. Psychiatric: Appropriate mood and affect. Good judgement and insight. Chief Complaint: Chest Pain Time Seen by MD: 23:45 Primary Care Provider: NONE Reviewed Notes: Nurses Notes, Medications, Allergies Allergies: Coded Allergies: NO KNOWN ALLERGIES (Unverified , 01/11/25) Home Meds Active Scripts Empagliflozin (Jardiance) 10 Mg Tab, 10 MG PO DAILY for 30 Days, #30 TAB [facility] 01/29/25 Furosemide (Lasix) 40 Mg Tab, 40 MG PO DAILY for 30 Days, #30 TAB Prov:[facility] 01/29/25 Metoprolol Succinate (Metoprolol Succinate Er) 25 Mg Tab, 25 MG PO DAILY for 30 Days, #30 TAB Prov:[facility] 01/29/25 Spironolactone (Aldactone) 25 Mg Tab, 25 MG PO DAILY for 30 Days, #30 TAB Prov:[facility] 01/29/25 Sacubitril-Valsartan (Entresto 24-26 mg) 1 Tab Tab, 1 TAB PO BID for 30 Days, #60 TAB Prov:[facility] 01/29/25 Ergocalciferol (VITAMIN D 75644 UNIT) 50,000 [place], [address] UNIT PO Q7D for 60 Days, #8 CAP Prov:[facility] 01/29/25 Docusate Sodium (Docusate Sodium) 100 Mg Cap, 100 MG PO BIDPRN PRN for 30 Days, #60 CAP Prov:[facility] 01/29/25 Atorvastatin Calcium (ATORVASTATIN CALCIUM) 20 Mg Tab, 40 MG PO HS for 30 Days, #30 TAB Prov:[facility] 01/29/25 Aspirin (Aspirin Low Dose) 81 Mg Tab, 81 MG PO DAILY for 30 Days, #30 TAB Prov:[facility] 01/29/25 Ondansetron Odt 4MG Tab (ZOFRAN PO) 4 Mg Tb, 4 MG PO QID PRN, #30 TAB ODT TAB-DISSOLVE IN MOUTH, THEN SWALLOW Prov:WILFRED CALL MD 01/14/25 Tramadol HCl (Tramadol HCl) 50 Mg Tab, 50 MG PO QID PRN, #40 TAB Prov:WILFRED CALL MD 01/14/25 Information Source: Patient Mode of Arrival: Ambulatory Severity: Moderate Timing: Hours Duration: Since onset Prehospital treatment: None Past Medical History PAST MEDICAL HISTORY: CHF (Reduced EF of 25%), DM (Type 2), High Lipids, HTN, Liver (Liver cirrhosis) Past Medical History (Other): Hepatocellular carcinoma-liver mass Hepatitis-C Severe tricuspid regurgitation Pneumonia Ascites Surgical History: PTCA Surgical History (Other): ERCP Family History Family History: Reviewed,noncontributory to illness, No family hx of Cancer, No family hx of DM, No family hx of Heart mariam, No family hx of HTN, No family hx ofKidney mariam, No family hx of Liver mariam, No family hx of Lung mariam, No family hx of Stroke Social History Smoker: Non-Smoker Alcohol: Denies ETOH Use Drugs: Denies Drug Use Lives In: Home Was a procedure done? Was a procedure done?: No EKG EKG : Pulse Rate (adult): 83 [place]: Normal Cardiac Rhythm: NSR Block: None Hypertrophy: None ST: Old, Ant, Infarct Comments No STEMI Differential Dx Considerations may include: Differential diagnoses considered include acute ischemic coronary syndrome, aortic dissection, cardiac tamponade, mediastinitis, pulmonary embolus, pneumothorax, tension pneumothorax, esophageal rupture, coronary artery vasospasm, myocarditis, pericarditis, pneumonia, pulmonary edema, esophageal tear, pancreatitis, aortic stenosis, dilated cardiomyopathy, hypertrophic cardiomyopathy, mitral valve prolapse, malignancy, pleuritis, pneumomediastinum, primary pulmonary hypertension, cholecystitis, esophageal spasm, esophagus, gastritis, GERD, peptic ulcer disease, costochondritis, fibromyalgia, rib fracture, herpes zoster, radicular syndromes, thoracic outlet syndrome, somatization. X-Ray, Labs, Meds, VS Vital Signs Date Time Temp Pulse Resp B/P (MAP) Pulse Ox O2 Delivery O2 Flow Rate FiO2 05/02/25 01:30 87 16 149/103 (118) 97 05/02/25 01:03 149/101 05/02/25 00:26 80 05/02/25 00:00 88 05/01/25 23:30 Nasal Cannula* 3 32 05/01/25 23:30 98.0 77 13 149/84 (105) 99 98.0 05/01/25 23:30 Nasal Cannula* 3 32 05/01/25 23:05 83 05/01/25 23:04 96 20 150/91 86 Lab Test 05/02/25 00:28 05/02/25 00:11 05/01/25 23:10 Range/Units Urine Color Yellow Yellow Urine Clarity Clear Clear Urine pH 6.0 5.0-9.0 Urine Specific [place] 1.030 1.001-1.035 Urine Protein 1+ H Negative Urine Ketones Trace Negative Urine Blood Trace H Negative /uL Urine Nitrite Negative Negative Urine Bilirubin Negative Negative Urine Urobilinogen 3 H Negative mg/dL Urine Leukocyte Esterase 1+ Negative /uL Urine RBC 9 0 - 3 /hpf Urine Microscopic WBC 2 0-3 /HPF Urine Squamous Epithelial Cells Few <5 /hpf Urine Calcium Oxalate Crystals Few None Seen Urine Bacteria None seen None Seen /hpf Urine Mucus Few None Seen Urine Glucose Normal Normal mg/dL Urine Opiates Screen Neg NEGATIVE Urine Fentanyl Screen Neg NEGATIVE Urine Barbiturates Screen Neg NEGATIVE Urine Phencyclidine Screen Neg NEGATIVE Urine Amphetamines Screen Neg NEGATIVE Urine Benzodiazepines Screen Neg NEGATIVE Urine Cocaine Screen Neg NEGATIVE Urine Cannabinoids Screen Pos NEGATIVE Troponin I High Sensitivity 26 26 </=54 ng/L White Blood Count 3.6 L 4.4-10.8 10^3/uL Red Blood Count 5.26 4.5-5.90 10^6/uL Hemoglobin 11.1 L 13.5-17.5 g/dL Hematocrit 36.0 L 41.0-53.0 % Mean Corpuscular Volume 68.4 L 80.0-100.0 fL Mean Corpuscular Hemoglobin 21.2 L 28.0-32.0 pg Mean Corpuscular Hemoglobin Concent 31.0 L 32.0-36.0 g/dL Red Cell Distribution Width 20.3 H 11.8-14.3 % Platelet Count 137 L 140-450 10^3/uL Mean Platelet Volume 8.3 6.9-10.8 fL Neutrophils (%) (Auto) 64.5 37.0-80.0 % Lymphocytes (%) (Auto) 24.9 10.0-50.0 % Monocytes (%) (Auto) 8.0 0.0-12.0 % Eosinophils (%) (Auto) 2.0 0.0-7.0 % Basophils (%) (Auto) 0.6 0.0-2.0 % Neutrophils # (Auto) 2.3 1.6-8.6 10 ^3/uL Lymphocytes # (Auto) 0.9 0.4-5.4 10 ^3/uL Monocytes # (Auto) 0.3 0-1.3 10 ^3/uL Eosinophils # (Auto) 0.1 0-0.8 10 ^3/uL Basophils # (Auto) 0 0-0.2 10 ^3/uL Nucleated Red Blood Cells 0.1 % Sodium Level 143 136-145 mmol/L Potassium Level 4.0 3.5-5.1 mmol/L Chloride Level 110 H 98-107 mmol/L Carbon Dioxide Level 25 20-31 mmol/L Anion Gap 8 5-15 Blood Urea Nitrogen 13 9-23 mg/dL Creatinine 0.87 0.700-1.30 mg/dL Glomerular Filtration Rate Calc 91 >90 mL/min BUN/Creatinine Ratio 14.9 10.0-20.0 Serum Glucose 79 74-106 mg/dL Calcium Level 9.1 8.7-10.4 mg/dL B-Type Natriuretic Peptide 4608.94 0-100 pg/mL Current Medications Medications (Trade) Dose Ordered Sig/Mikki Route Start Time Stop Time Status Last Admin Aspirin 324 mg ONCE ONCE PO 05/02/25 00:00 05/02/25 00:01 DC 05/02/25 00:19 Furosemide (Lasix Injection) 40 mg ONCE ONCE IV 05/02/25 00:45 05/02/25 00:46 DC 05/02/25 01:03 Spironolactone (Aldactone) 25 mg DAILY PO 05/02/25 01:45 05/02/25 02:03 [place] [id number] Ph: [phone] DIAGNOSTIC IMAGING Diagnostic Imaging Report : [id number] Signed PATIENT: TIM NULL ACCT: [id number] UNIT: [id number] : 1950 LOC: ER ROOM / BED: / AGE / SEX: 74 / M ADM STATUS: REG ER SERVICE [id number] ORDERING PHYSICIAN: TIA FREEMAN MD PROCEDURE(s): CXR1 - CHEST XRAY 1 VIEW REASON: cp ORDER NUMBER(s): [id number], ACCESSION NUMBER(s): [id number] EXAM: XY CHEST XRAY 1 VIEW CLINICAL HISTORY: cp TECHNIQUE: Single AP view of the chest WID: COMPARISON: XY CHEST XRAY 1 VIEW on DOS: 01/23/25 FINDINGS: Lines and tubes: None Chest: Cardiomegaly and pulmonary vascular congestion. Calcified plaque projects over the aortic arch. Small right pleural effusion. Linear bibasilar scarring or atelectasis. No pneumothorax. The osseous structures are grossly intact. Multilevel thoracic spondylosis. IMPRESSION: Mild cardiomegaly, pulmonary vascular congestion, and small right pleural effusion. ATED BY: IGLESIA HERNÁNDEZ MD DICTATED DATE/TIME: 05/02/2527 SIGNED BY: IGLESIA HERNÁNDEZ MD SIGNED DATE/TIME: 05/02/2527 CC: Time of 1ST Reevaluation: 00:15 Reevaluation 1ST: Unchanged Patient Education/Counseling: Other (Need for admission) Family Education/Counseling: No Family Present SEPSIS Sepsis Screen Date sepsis recognized/suspect: May 01, 2025 Time Sepsis recognized/suspect: 2329 Recent Procedure: No On Antibiotic Therapy: No Respiratory Rate >20: Yes Heart Rate >90: No Temp<36 C (96.8 F) or >38.3 C: No SBP <90 or MAP <65 mmHG: No New Acute Mental Status Change: No Is the patient on CPAP, BIPAP,: No Physician Orders Electrocardigram (05/01/25 23:15) Electrocardigram (05/02/25 02:15) Chest Xray 1 View (05/01/25 23:48) Vital Signs Q1HR (05/01/25 23:48) Sacubitril-Valsartan (Entresto 24-26 Mg (05/02/25 10:00) Strict I & O QSHIFT (05/02/25 01:45) Cardiac Diet-2gna,Lofat,Lochol (05/02/25 Breakfast) Spironolactone (Aldactone) (05/02/25 01:45) Allergies (05/02/25 01:53) Oxygen Per Hour (05/02/25 01:53) Enoxaparin Sodium (Lovenox) (05/02/25 10:00) Complete Blood Count (05/03/25 04:00) Comprehensive Metabolic Panel (05/03/25 04:00) Vital Signs Date Time Temp Pulse Resp B/P (MAP) Pulse Ox O2 Delivery O2 Flow Rate FiO2 05/02/25 01:30 87 16 149/103 (118) 97 05/02/25 01:03 149/101 05/02/25 00:26 80 05/02/25 00:00 88 05/01/25 23:30 Nasal Cannula* 3 32 05/01/25 23:30 98.0 77 13 149/84 (105) 99 98.0 05/01/25 23:30 Nasal Cannula* 3 32 05/01/25 23:05 83 05/01/25 23:04 96 20 150/91 86 Laboratory Tests Test 05/01/25 23:10 White Blood Count 3.6 10^3/uL (4.4-10.8) L Medications Medications Dose Ordered Sig/Mikki Route Start Time Stop Time Status Last Admin Dose Admin Aspirin 324 mg ONCE ONCE PO 05/02/25 00:00 05/02/25 00:01 DC 05/02/25 00:19 Furosemide 40 mg ONCE ONCE IV 05/02/25 00:45 05/02/25 00:46 DC 05/02/25 01:03 Spironolactone 25 mg DAILY PO 05/02/25 01:45 05/02/25 02:03 Departure 1 Departure Time of Disposition: 00:53 Impression: Primary Impression: CHF exacerbation Disposition: ADMITTED INPATIENT Condition: Stable Comments MDM: 74-year-old male who presents with chest pain. Initial evaluation included thorough history, physical examination and approp riate diagnostic testing. Based on the clinical presentation and diagnostic findings, the patient appears to have CHF exacerbation Given the complexity of the case and need for further management patient is being admitted to the hospitalist service for further monitoring, treatment and evaluation. Risks, benefits and alternatives of admission and proposed interventions were discussed with the patient. Patient is in agreement with the plan. Extensive evaluation was performed in attempt to identify or rule out: (See differential diagnosis section) The following tests were ordered, and results were reviewed by me and discussed with patient: (See diagnostic results section) The following test were independently interpreted by me: EKG I reviewed and agreed with the following test results read by other providers: Chest x-ray I reviewed the following notes from the pt's past medical encounters: January 11, 2025 and January 24, 2025 encounters for abdominal pain and acute exacerbation CHF, respectively Additional information was gathered from interviewing the following independent historians: N/A Discussion of management or test interpretation with external physician/other qualified health care professionals: N/A Acute or chronic illness that poses a threat to life or bodily function: CHF exacerbation Decision regarding hospitalization or escalation of hospital level of care: Risk and benefits of admission for further treatment of patient's condition was considered. Due to patient's current clinical condition, high risk of decline and poor outcome if discharged and need for further inpatient management and monitoring, patient will be admitted to the hospital. Drug therapy requiring intensive monitoring for toxicity: IV furosemide Critical Care Note Critical Care Time?: No Stability Stability form required: No Heart Score Heart Score: Heart Score Response (Comments) Value History Moderate Suspicious 1 EKG Normal 0 Age >65 2 Risk Factors >3 or Hx ASHD 2 Troponin Normal limit 0 Total 5 I personally scribed for TIA FREEMAN MD ([email or web address]) on 05/02/25 at 01:57. Electronically submitted by Cholo Torres [email or web address]). TIA FREEMAN MD May 02, 2025 00:54
[2025-05-02] MEDS: FUROSEMIDE 40 MG/4 ML VIAL IV ONE ×2 (01:03→02:45)
[2025-05-02] MEDS ORDERED: NITROGLYCERIN 0.4 MG SL TAB SL PRN (02:00)
[2025-05-02] MEDS: SPIRONOLACTONE 25 MG TAB PO SCH (02:03)
[2025-05-02 02:05] LABS: Urine Protein, UAD 1+ (Negative)
--- NOTE | 2025-05-02 02:38 | DVHHPRES ---
History of Present Illness Resident Creating Document: SUKHWINDER MARES RESIDENT History of Present Illness 74-year-old male with previous history of CHF presents to the ER due to increasing shortness of breaths since last few days. His symptoms increased 1 day ago when he was outside whole day with his son, he started feeling severe short of breath while taking his socks off after coming home. Then he noticed leg swelling and his son brought him to the ER. Son is the healthcare proxy. Today the patient experienced chest pain rating 10/10, which feels like a tightness or pressure,nonradiating.. His shortness of breath increases on lying down. The patient is also experiencing headache as well. He denies any fever, abdominal pain, nausea vomiting or urinary symptoms or any other complaints. Past medical history: CHF (from previous notes: Liver cirrhosis, ascites, liver mass, hepatic cancer, hepatitis-C) Past surgical history: Right eye surgery due to traumatic fall and prosthesis in place, ascitic fluid removal, possible stent in the kidneys Home medicines: Patient could not mention. His son will inform tomorrow. Allergies: None Smoking history: 1-2 cigarettes since last 1 year Alcohol: None Drugs: None PCP: A doctor in [place] Family history: Noncontributory Code status: DNR DNI Review of Systems Respiratory: Shortness of breath Cardiovascular: Chest Pain, Orthopnea Other Headache Allergies: Coded Allergies: NO KNOWN ALLERGIES (Unverified , 01/11/25) Medications Current Medications Medications Dose Ordered Sig/Mikki Route Start Time Stop Time Status Last Admin Dose Admin Sacubitril/ Valsartan 1 tab BID PO 05/02/25 10:00 Spironolactone 25 mg DAILY PO 05/02/25 01:45 05/02/25 02:03 25 MG Enoxaparin Sodium 40 mg DAILY SC 05/02/25 10:00 Nitroglycerin 0.4 mg Q5MINP PRN SL 05/02/25 02:00 Morphine Sulfate 2 mg Q30M PRN IV 05/02/25 02:00 Furosemide 40 mg BID IV 05/02/25 10:00 Exam Vital Signs Vital Signs Date Time Temp Pulse Resp B/P (MAP) Pulse Ox O2 Delivery O2 Flow Rate FiO2 05/02/25 01:57 83 05/02/25 01:30 16 149/103 (118) 97 8/13/25 23:30 Nasal Cannula* 3 32 05/01/25 23:30 98.0 98.0 Exam Pt is lying on bed General Appearance: Alert, Oriented X3, Cooperative, Mild distress HEENT: Atraumatic, Mucous membranes moist/pink Respiratory: Crackles over the base of the lungs, Normal air movement, No added sounds Cardiovascular: JVD present, Regular rate, Normal S1, Normal S2, No murmurs Abdominal/ : Active bowel sounds, Soft, no distention, no tenderness,midline scar present Extremities: No edema, Normal pulses, No tenderness/swelling Skin: No Significant rash, except past surgical scars Neuro: Normal speech, sensorimotor deficits none Psych/Mental Status: Mental status NL, Mood NL Nurse was there as glove presser during examination Labs/Xrays Labs Test 05/02/25 02:17 05/02/25 00:28 05/01/25 23:10 Range/Units Urine Color Yellow Yellow Urine Clarity Clear Clear Urine pH 6.0 5.0-9.0 Urine Specific [place] 1.030 1.001-1.035 Urine Protein 1+ H Negative Urine Ketones Trace Negative Urine Blood Trace H Negative /uL Urine Nitrite Negative Negative Urine Bilirubin Negative Negative Urine Urobilinogen 3 H Negative mg/dL Urine Leukocyte Esterase 1+ Negative /uL Urine RBC 9 0 - 3 /hpf Urine Microscopic WBC 2 0-3 /HPF Urine Squamous Epithelial Cells Few <5 /hpf Urine Calcium Oxalate Crystals Few None Seen Urine Bacteria None seen None Seen /hpf Urine Mucus Few None Seen Urine Glucose Normal Normal mg/dL White Blood Count 3.6 L 4.4-10.8 10^3/uL Red Blood Count 5.26 4.5-5.90 10^6/uL Hemoglobin 11.1 L 13.5-17.5 g/dL Hematocrit 36.0 L 41.0-53.0 % Mean Corpuscular Volume 68.4 L 80.0-100.0 fL Mean Corpuscular Hemoglobin 21.2 L 28.0-32.0 pg Mean Corpuscular Hemoglobin Concent 31.0 L 32.0-36.0 g/dL Red Cell Distribution Width 20.3 H 11.8-14.3 % Platelet Count 137 L 140-450 10^3/uL Mean Platelet Volume 8.3 6.9-10.8 fL Neutrophils (%) (Auto) 64.5 37.0-80.0 % Lymphocytes (%) (Auto) 24.9 10.0-50.0 % Monocytes (%) (Auto) 8.0 0.0-12.0 % Eosinophils (%) (Auto) 2.0 0.0-7.0 % Basophils (%) (Auto) 0.6 0.0-2.0 % Neutrophils # (Auto) 2.3 1.6-8.6 10 ^3/uL Lymphocytes # (Auto) 0.9 0.4-5.4 10 ^3/uL Monocytes # (Auto) 0.3 0-1.3 10 ^3/uL Eosinophils # (Auto) 0.1 0-0.8 10 ^3/uL Basophils # (Auto) 0 0-0.2 10 ^3/uL Nucleated Red Blood Cells 0.1 % Sodium Level 143 136-145 mmol/L Potassium Level 4.0 3.5-5.1 mmol/L Chloride Level 110 H 98-107 mmol/L Carbon Dioxide Level 25 20-31 mmol/L Anion Gap 8 5-15 Blood Urea Nitrogen 13 9-23 mg/dL Creatinine 0.87 0.700-1.30 mg/dL Glomerular Filtration Rate Calc 91 >90 mL/min BUN/Creatinine Ratio 14.9 10.0-20.0 Serum Glucose 79 74-106 mg/dL Calcium Level 9.1 8.7-10.4 mg/dL B-Type Natriuretic Peptide 4608.94 0-100 pg/mL SEPSIS Sepsis Screen Date sepsis recognized/suspect: May 01, 2025 Time Sepsis recognized/suspect: 2329 Recent Procedure: No On Antibiotic Therapy: No Respiratory Rate >20: Yes Heart Rate >90: No Temp<36 C (96.8 F) or >38.3 C: No SBP <90 or MAP <65 mmHG: No New Acute Mental Status Change: No Is the patient on CPAP, BIPAP,: No Physician Orders Electrocardigram (05/01/25 23:15) Electrocardigram (05/02/25 02:15) Chest Xray 1 View (05/01/25 23:48) Vital Signs Q1HR (05/01/25 23:48) Troponin-I Hs (05/02/25 02:48) Sacubitril-Valsartan (Entresto 24-26 Mg (05/02/25 10:00) Strict I & O QSHIFT (05/02/25 01:45) Cardiac Diet-2gna,Lofat,Lochol (05/02/25 Breakfast) Spironolactone (Aldactone) (05/02/25 01:45) Allergies (05/02/25 01:53) Oxygen Per Hour (05/02/25 01:53) Enoxaparin Sodium (Lovenox) (05/02/25 10:00) Complete Blood Count (05/03/25 04:00) Comprehensive Metabolic Panel (05/03/25 04:00) Admit (05/02/25 01:55) Nitroglycerin Sublingual (Ntrostat Subli (05/02/25 02:00) Morphine Sulfate Injection (05/02/25 02:00) Oxygen By Nasal Cannula (05/02/25 01:55) Stat Ekg For Chest Pain (05/02/25 01:55) Notify Md Of Changes From Base (05/02/25 01:55) Photoengraving Apprentice For 24 Hours (05/02/25 01:55) Emergency Dysrhythmia Protocol (05/02/25 01:55) Rhythm Strips Once Every Shift (05/02/25 01:55) Furosemide Injection (Lasix Injection) (05/02/25 10:00) Drug Screen (05/02/25 02:04) Vital Signs Date Time Temp Pulse Resp B/P (MAP) Pulse Ox O2 Delivery O2 Flow Rate FiO2 05/02/25 01:57 83 05/02/25 01:30 87 16 149/103 (118) 97 05/02/25 01:03 149/101 05/02/25 00:26 80 05/02/25 00:00 88 05/01/25 23:30 Nasal Cannula* 3 32 05/01/25 23:30 98.0 77 13 149/84 (105) 99 98.0 05/01/25 23:30 Nasal Cannula* 3 32 05/01/25 23:05 83 05/01/25 23:04 96 20 150/91 86 Laboratory Tests Test 05/01/25 23:10 White Blood Count 3.6 10^3/uL (4.4-10.8) L Medications Medications Dose Ordered Sig/Mikki Route Start Time Stop Time Status Last Admin Dose Admin Aspirin 324 mg ONCE ONCE PO 05/02/25 00:00 05/02/25 00:01 DC 05/02/25 00:19 324 MG Furosemide 40 mg ONCE ONCE IV 05/02/25 00:45 05/02/25 00:46 DC 05/02/25 01:03 40 MG Spironolactone 25 mg DAILY PO 05/02/25 01:45 05/02/25 02:03 25 MG Assessment/Plan Assessment/Plan Shortness of breaths due to systolic heart failure Chest pain due to pulmonary congestion Chest pain rule out ACS Echocardiography from 01/24/2025: lvef 10% by visual estiamte dialted LV RV dysfunction milld mitral regurg severe tricuspid regurg biatrial enlargement end stage dilated heart failure 05/02/2025: CXR: Mild cardiomegaly, pulmonary vascular congestion, small right pleural effusion troponin 26, BNP 4608 EKG: No ischemic changes -oxygen by nasal cannula -furosemide 40 mg IV b.i.d. -strict intake output -aspirin 81 mg daily -statin 40 mg daily GDMT started: -spironolactone 25 mg daily -Entresto -Consider cardiology consult if necessary GI prophylaxis: Pantoprazole DVT prophylaxis: Enoxaparin Diet: Cardiac Goals of care discussed with the patient for more than 27 minutes: Full code status Case discussed with Dr. Castillo , patient and RN Plan discussed with: Patient, Other My Orders Orders - SUKHWINDER MARES RESIDENT Procedure Category Date Status Time Allergies [facility] 05/02/25 In Process 01:53 Oxygen Per Hour RT 05/02/25 Transmitted 01:53 Enoxaparin Sodium PHA 05/02/25 In Process (Lovenox) 10:00 Complete Blood Count LAB 05/03/25 Verified 04:00 Comprehensive LAB 05/03/25 Verified Metabolic Panel 04:00 Admit ADMIT 05/02/25 Transmitted 01:55 Nitroglycerin PHA 05/02/25 In Process Sublingual (Ntrostat 02:00 Morphine Sulfate PHA 05/02/25 In Process Injection 02:00 Oxygen By Nasal RT 05/02/25 Transmitted Cannula 01:55 Stat Ekg For Chest [facility] 05/02/25 In Process Pain 01:55 Notify Of Changes [facility] 05/02/25 In Process From Base 01:55 Photoengraving Apprentice For SOPHIA 05/02/25 In Process 24 Hours 01:55 Emergency Dysrhythmia [facility] 05/02/25 In Process Protocol 01:55 Rhythm Strips Once [place] 05/02/25 In Process Every Shift 01:55 Furosemide Injection PHA 05/02/25 In Process (Lasix Injection) 10:00 Drug Screen LAB 05/02/25 In Process 02:04 Date of Service: May 02, 2025 Billing Provider: MARAH CASTILLO MD Common Visit Codes: [id number] INP/OBS CARE (HIGH) Secondary Visit Codes: [id number] CARE PLAN 30 MINUTES SUKHWINDER MARES RESIDENT May 02, 2025 02:38
[2025-05-02 03:34] LABS: Cannabinoid Screen, Urine Pos (NEGATIVE)
[2025-05-02 03:37] LABS: Amphetamine Screen, Urine Neg (NEGATIVE); Barbiturate Scree,Urine Neg (NEGATIVE); Benzodiazephine Screen, Urine Neg (NEGATIVE); Cocaine Screen, Urine Neg (NEGATIVE); Opiate Scree,Urine Neg (NEGATIVE); Phencyclidine Screen, Urine Neg (NEGATIVE)
--- NOTE | 2025-05-02 08:43 | ECG ---
[facility] Test Date: 2025-05-02 Test Time: 06:30:12 Pat Name: TIM NULL Department: Respiratoy Room: 0240T Gender: M Stock Fitter: : 1950 Requested By: SUKHWINDER MARES Order Number: [id number] Reading MD: Hardeep Tate Measurements Intervals [place] Rate: 83 P: 47 CT: 184 QRS: -30 QRSD: 85 T: 132 QT: 506 QTc: 595 Interpretive Statements Sinus rhythm Left axis deviation RSR' in V1 or V2, probably normal variant Nonspecific repol abnormality, diffuse leads Prolonged QT interval Electronically Signed On 05-06-2025 22:13:51 PDT by Hardeep Tate Please click the below link to view image of tracing.
[2025-05-02] MEDS: SACUBITRIL-VALSARTAN 24mg/26mg TAB PO SCH (09:35)
[2025-05-02] MEDS: ATORVASTATIN 20 MG TAB PO SCH (09:35)
[2025-05-02] MEDS: FUROSEMIDE 40 MG/4 ML VIAL IV SCH (09:37)
[2025-05-02] MEDS: PANTOPRAZOLE 40 MG/10 ML VIAL INJ IV SCH (09:37)
[2025-05-02] MEDS: ENOXAPARIN SOD 40 MG/0.4 ML SYRINGE SC SCH (09:38)
--- NOTE | 2025-05-02 11:29 | DVH ---
Right Chest Sonogram Date: 05/02/2025 10:28 AM Clinical history: pleural effusion Findings: Limited sonographic evaluation of the right chest was performed to localize and lexi fluid for thorac entesis. Small right pleural effusion. IMPRESSION: Small right pleural effusion END IMPRESSION:
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
[2025-05-03] VITALS (10 sets, daily range): BP systolic 116–144; BP diastolic 64–94; PULSE 67–87; RESP 16–19; TEMP 98–98.9; O2SAT 96–100
[2025-05-03 06:22] LABS: Hematocrit 35.9 % (41.0-53.0); Hemoglobin 11.3 g/dL (13.5-17.5); Mean Corpuscular Hemoglobin 21.0 pg (28.0-32.0); Mean Corpuscular Volume 66.9 fL (80.0-100.0); Nucleated Red Blood Cells % 0.1 %
[2025-05-03 06:31] LABS: Albumin 3.6 g/dL (3.2-4.8); Anion Gap 7 (5-15); BUN/Creatinine Ratio 15.6 (10.0-20.0); Blood Urea Nitrogen 15 mg/dL (9-23); Calcium 8.9 mg/dL (8.7-10.4); Carbon Dioxide 29 mmol/L (20-31); Chloride 105 mmol/L (98-107); Glucose 100 mg/dL (74-106); Potassium 3.6 mmol/L (3.5-5.1); Sodium 141 mmol/L (136-145); Total Protein 7.2 g/dL (5.7-8.2)
[2025-05-03 06:32] LABS: Alanine Aminotransferase 51 U/L (7-40); Alkaline Phosphatase 323 U/L (46-116); Bilirubin, Total 1.1 mg/dL (0.2-1.0)
--- NOTE | 2025-05-03 11:56 | ECG ---
[facility] Test Date: 2025-05-01 Test Time: 23:05:20 Pat Name: TIM NULL Department: [facility] ED Room: 0240T Gender: M Director Industrial: MELODY : 1950 Requested By: TIA FREEMAN Order Number: [id number] Reading MD: Hardeep Tate Measurements Intervals [place] Rate: 83 P: 51 NE: 188 QRS: -7 QRSD: 107 T: 38 QT: 379 QTc: 446 Interpretive Statements Sinus rhythm Anterior infarct, old Electronically Signed On 05-06-2025 22:42:25 PDT by Hardeep Tate Please click the below link to view image of tracing.
[2025-05-03] MEDS: EMPAGLIFLOZIN 10 MG TAB PO SCH (13:13)
[2025-05-03] MEDS: FUROSEMIDE 40 MG/4 ML VIAL IV SCH (17:38)
[2025-05-03] MEDS: MORPHINE SULFATE INJ 2 MG/ml SYRG IV PRN (17:57)
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
[2025-05-03] MEDS: ALBUTEROL SULF 2.5 MG/0.5ML(0.5%) NEB SOLN NEB PRN (22:25)
[2025-05-04] VITALS (11 sets, daily range): BP systolic 128–146; BP diastolic 63–88; PULSE 68–89; RESP 16–20; TEMP 97–98.4; O2SAT 96–100
[2025-05-04 07:15] LABS: Hematocrit 33.6 % (41.0-53.0); Hemoglobin 10.4 g/dL (13.5-17.5); Mean Corpuscular Hemoglobin 20.9 pg (28.0-32.0); Mean Corpuscular Volume 67.2 fL (80.0-100.0); Nucleated Red Blood Cells % 0.3 %
[2025-05-04 07:29] LABS: Chloride 104 mmol/L (98-107); Potassium 3.5 mmol/L (3.5-5.1); Sodium 141 mmol/L (136-145)
[2025-05-04 07:30] LABS: Anion Gap 7 (5-15); Calcium 8.8 mg/dL (8.7-10.4); Carbon Dioxide 30 mmol/L (20-31)
[2025-05-04 07:35] LABS: BUN/Creatinine Ratio 13.2 (10.0-20.0); Blood Urea Nitrogen 12 mg/dL (9-23); Glucose 74 mg/dL (74-106)
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
[2025-05-04] MEDS: MELATONIN 5 MG TAB PO ONE (21:04)
[2025-05-05] VITALS (10 sets, daily range): BP systolic 112–138; BP diastolic 71–90; PULSE 70–85; RESP 16–20; TEMP 97.7–98.2; O2SAT 95–100
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
[2025-05-05] MEDS: ACETAMINOPHEN 325 MG TAB PO ONE (20:29)
[2025-05-06] VITALS (10 sets, daily range): BP systolic 111–146; BP diastolic 69–96; PULSE 18–91; RESP 16–19; TEMP 97.7–98.3; O2SAT 94–100
--- NOTE | 2025-05-06 08:48 | ECG ---
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
[2025-05-06 10:32] LABS: Hematocrit 37.2 % (41.0-53.0); Hemoglobin 11.9 g/dL (13.5-17.5); Mean Corpuscular Hemoglobin 21.5 pg (28.0-32.0); Mean Corpuscular Volume 67.6 fL (80.0-100.0); Nucleated Red Blood Cells % 0.1 %
[2025-05-06 10:50] LABS: Anion Gap 7 (5-15); Chloride 98 mmol/L (98-107); Sodium 138 mmol/L (136-145)
[2025-05-06 10:52] LABS: Calcium 9.2 mg/dL (8.7-10.4); Carbon Dioxide 33 mmol/L (20-31); Potassium 3.3 mmol/L (3.5-5.1)
[2025-05-06 10:56] LABS: BUN/Creatinine Ratio 9.8 (10.0-20.0); Blood Urea Nitrogen 10 mg/dL (9-23)
[2025-05-06 10:57] LABS: Glucose 127 mg/dL (74-106)
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
[2025-05-06] MEDS: POTASSIUM CHL 20 Meq TABLET PO ONE (16:48)
[2025-05-06] MEDS: METOPROLOL SUCCINATE XL 50 MG TAB PO SCH (16:49)
[2025-05-07 01:00] VITALS: BP 135/64; PULSE 63; RESP 18; TEMP 98.4; O2SAT 100
[2025-05-07 05:00] VITALS: BP 118/77; PULSE 61; RESP 17; TEMP 98.4; O2SAT 100
[2025-05-07 06:16] LABS: Hematocrit 37.3 % (41.0-53.0); Hemoglobin 11.7 g/dL (13.5-17.5); Mean Corpuscular Hemoglobin 21.3 pg (28.0-32.0); Mean Corpuscular Volume 68.0 fL (80.0-100.0); Nucleated Red Blood Cells % 0.2 %
[2025-05-07 06:18] VITALS: O2SAT 99
[2025-05-07 06:26] LABS: Albumin 3.7 g/dL (3.2-4.8); Anion Gap 5 (5-15); BUN/Creatinine Ratio 11.7 (10.0-20.0); Blood Urea Nitrogen 12 mg/dL (9-23); Calcium 9.2 mg/dL (8.7-10.4); Chloride 100 mmol/L (98-107); Glucose 99 mg/dL (74-106); Potassium 4.1 mmol/L (3.5-5.1); Sodium 137 mmol/L (136-145); Total Protein 7.6 g/dL (5.7-8.2)
[2025-05-07 06:27] LABS: Bilirubin, Total 1.0 mg/dL (0.2-1.0)
[2025-05-07 06:34] LABS: Alanine Aminotransferase 42 U/L (7-40); Alkaline Phosphatase 286 U/L (46-116); Carbon Dioxide 32 mmol/L (20-31)
--- NOTE | 2025-05-07 07:13 | ECG ---
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
[2025-05-07 08:00] VITALS: PULSE 63; PULSE 72; RESP 18; O2SAT 100
[2025-05-07 09:14] VITALS: BP 136/89; PULSE 63; RESP 18; TEMP 97.6; O2SAT 100
[2025-05-07 11:45] VITALS: BP 136/89; PULSE 63
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
== END 2025-05-07 12:00 | disposition home or self-care (01) | DRG 291 ==
LOC: ER 23:02 → OVERFLOW 05-02 01:55 → TELE-EAST 05-02 03:34
PROVIDERS: ADMIT Internal Medicine Geriatric Medicine; ATTEND Internal Medicine Geriatric Medicine
DX: I11.0 Hypertensive heart disease with heart failure (principal); I50.23 Acute on chronic systolic (congestive) heart failure; J96.01 Acute respiratory failure with hypoxia; J90 Pleural effusion, not elsewhere classified; D50.9 Iron deficiency anemia, unspecified; D69.6 Thrombocytopenia, unspecified; B19.20 Unspecified viral hepatitis C without hepatic coma; K70.30 Alcoholic cirrhosis of liver without ascites; E11.9 Type 2 diabetes mellitus without complications; E78.5 Hyperlipidemia, unspecified; Z79.84 Long term (current) use of oral hypoglycemic drugs; Z79.82 Long term (current) use of aspirin; Z79.899 Other long term (current) drug therapy; Z85.05 Personal history of malignant neoplasm of liver; Z95.5 Presence of coronary angioplasty implant and graft
CPT/HCPCS: 36415; 71045; 76604; 80048; 80053; 80307; 81001; 82140; 83735; 83880; 84484; 85025; 93005; 94640; 96374; 96375; 96376; 97110; 97116; 97163; G0378; J2470

== ENCOUNTER 2025-05-13 14:52 | Inpatient (IN) | payer MEDICARE, MEDICAID ==
[~2025-05-13] VITALS: Ht 188 cm; Wt 83.0 kg
--- NOTE | 2025-05-13 15:22 | ED.PDOC ---
SOB-HPI HPI Comments This is a 74 year old male AMANDAA presenting to the ED with chief complaint of SOB. Patient reports that he has been experiencing worsening SOB with associated leg swelling and chest pressure since this morning. Patient relays that he has CHF and he believes he is having an episode of exacerbation. EMS states patient was on 87% on 2L despite giving 2 DuoNeb treatments en route, placing him on a non-rebreather mask upon arrival. Patient denies any abdominal pain, hemoptysis, cough, fever, chills, headache, or dizziness. 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, Medications, Allergies Information Source: Patient, Emergency Med Personnel Mode of Arrival: EMS Severity: Moderate Timing: Hours Duration: Since onset Context: At Rest PE Risk Factors: None History of: CHF Prehospital treatment: Oxygen Modifying Factors: Nothing Associated Signs and Symptoms: Chest Pain, Leg Swelling Quality: Pressure Radiation: No Radiation Location: Substernal Past Medical History PAST MEDICAL HISTORY: CHF, DM, High Lipids, HTN, Liver Surgical History: PTCA Family History Family History: Reviewed,noncontributory to illness, No family hx of Cancer, No family hx of DM, No family hx of Heart mariam, No family hx of HTN, No family hx ofKidney mariam, No family hx of Liver mariam, No family hx of Lung mariam, No family hx of Stroke Social History Smoker: Non-Smoker, Quit Greater Than 1 Year Alcohol: Denies ETOH Use Drugs: Denies Drug Use Lives In: Home Constitutional: denies: chills, diaphoresis, fatigue, fever, malaise, sweats, weakness, others EENTM: denies: blurred vision, double vision, ear bleeding, ear discharge, ear drainage, ear pain, ear ringing, eye pain, eye redness, hearing loss, mouth pain, mouth swelling, nasal discharge, nose bleeding, nose congestion, nose pain, photophobia, tearing, throat pain, throat swelling, voice changes, others Respiratory: reports: shortness of breath; denies: cough, hemoptysis, orthopnea, SOB at rest, SOB with excertion, stridor, wheezing, others Cardiovascular: reports: chest pain, edema; denies: dizzy spells, diaphoresis, Dyspnea on exertion, irregular heart beat, left arm pain, lightheadedness, palp itations, PND, syncope, others Gastrointestinal: denies: abdomen distended, abdominal pain, blood streaked bowels, constipated, diarrhea, dysphagia, difficulty swallowing, hematemesis, melena, nausea, poor appetite, poor fluid intake, rectal bleeding, rectal pain, vomiting, others Genitourinary: denies: burning, dysuria, flank pain, frequency, hematuria, incontinence, penile discharge, penile sore, pain, testicle pain, testicle swelling, urgency, others Neurological: denies: dizziness, fainting, headache, left sided numbness, left sided weakness, numbness, paresthesia, pre-existing deficit, right sided numbness, right sided weakness, seizure, speech problems, tingling, tremors, weakness, others Musculoskeletal: denies: back pain, gout, joint pain, joint swelling, muscle pain, muscle stiffness, neck pain, others Integumetry: denies: bruises, change in color, change in hair/nails, dryness, laceration, lesions, lumps, rash, wounds, others Allergic/Immunocompromised: denies: Difficulty Healing, Frequent Infections, Hives, Itching, others Hematologic/Lymphatic: denies: anemia, blood clots, easy bleeding, easy brui sing, swollen glands, others Endocrine: denies: excessive hunger, excessive sweating, excessive thirst, ex cessive urination, flushing, intolerance to cold, intolerance to heat, unexplained weight gain, unexplained weight loss, others Psychiatric: denies: anxiety, bipolar disorder, depression, hopeless, panic disorder, schizophrenia, sleepless, suicidal, others All Other Systems: Reviewed and Negative Physical Exam General Appearance: Moderate Distress, Normal HEENT: Normal ENT Inspection, Pharynx Normal, TMs Normal Neck: Full Range of Motion, Non-Tender, Normal, Normal Inspection Respiratory: Chest Non-Tender, Lungs Clear, No Accessory Muscle Use, No Respiratory Distress, Normal Breath Sounds Cardiovascular: No Edema, No JVD, No Murmur, No Gallop, Normal Peripheral Pulses, Regular Rate/Rhythm Breast Exam: Deferred Gastrointestinal: No Organomegaly, Non Tender, No Pulsatile Mass, Normal Bowel Sounds, Soft Genitalia: Deferred Pelvic: Deferred Rectal: Deferred Extremities: No calf tenderness, Normal capillary refill, Normal range of motion, Non-tender, Pedal edema, Swelling (Bilateral lower extremity) Musculoskeletal : Apperance: Normal Neurologic: Alert, washer operator II-XII nml as Tested, No Motor Deficits, Normal Affect, Normal Mood, No Sensory Deficits Cerebellar Function: NOT DONE Reflexes: NOT DONE Skin: Dry, Normal Color, Warm Peripheral Pulses: 3+ Radial (R), 3+ Radial (L) Lymphatic: No Adenopathy Was a procedure done? Was a procedure done?: No Differential Dx Differential Diagnosis: Anxiety, Asthma, Bronchitis, CHF, COPD X-Ray, Labs, Meds, VS Vital Signs Date Time Temp Pulse Resp B/P (MAP) Pulse Ox O2 Delivery O2 Flow Rate FiO2 05/13/25 15:42 91 36 98 Non-Rebreather 10 N/A 05/13/25 15:40 91 32 107/71 (83) 98 05/13/25 15:28 98.8 86 18 114/73 92 98.8 05/13/25 14:59 88 Lab Test 05/13/25 15:31 Range/Units White Blood Count Pending Red Blood Count Pending Hemoglobin Pending Hematocrit Pending Mean Corpuscular Volume Pending Mean Corpuscular Hemoglobin Pending Mean Corpuscular Hemoglobin Concent Pending Red Cell Distribution Width Pending Platelet Count Pending Mean Platelet Volume Pending Neutrophils (%) (Auto) Pending Lymphocytes (%) (Auto) Pending Monocytes (%) (Auto) Pending Basophils (%) (Auto) Pending Neutrophils # (Auto) Pending Lymphocytes # (Auto) Pending Monocytes # (Auto) Pending Sodium Level Pending Potassium Level Pending Chloride Level Pending Carbon Dioxide Level Pending Anion Gap Pending Blood Urea Nitrogen Pending Creatinine Pending Glomerular Filtration Rate Calc Pending BUN/Creatinine Ratio Pending Serum Glucose Pending Calcium Level Pending Troponin I High Sensitivity Pending B-Type Natriuretic Peptide Pending [address] [address] Ph: [phone] DIAGNOSTIC IMAGING Diagnostic Imaging Report : [id number] Signed PATIENT: TIM NULLACCT: [id number] UNIT: [id number] : 1950 LOC: ER ROOM / BED: / AGE / SEX: 74 / M ADM STATUS: REG ER SERVICE [id number] ORDERING PHYSICIAN: JAMIA UMAÑA MD PROCEDURE(s): CXRP - CHEST PORTABLE REASON: sob ORDER NUMBER(s): [id number], ACCESSION NUMBER(s): [id number] AP portable chest CLINICAL INDICATION: sob Comparison: 05/01/2025 FINDINGS: Infiltrates in the right lung. Left lung clear. Heart size enlarged. IMPRESSION: 1. Right-sided pneumonia worse than on previous exam ATED BY: NETTE GARCIA MD DICTATED DATE/TIME: 05/13/251547 SIGNED BY: NETTE GARCIA MD SIGNED DATE/TIME: 05/13/251547 CC: Patient alert. Answering questions. Complaining of shortness a breath. Placed on oxygen. Chest x-ray reviewed does show pneumonia. Was given Rocephin. Was given azithromycin. Was given Lasix. Continue to monitor. Time of 1ST Reevaluation: 16:19 Reevaluation 1ST: Unchanged Patient Education/Counseling: Diagnosis, Treatment Family Education/Counseling: No Family Present SEPSIS Sepsis Screen Physician Orders Electrocardigram (05/13/25 15:02) Troponin-I Hs (05/13/25 15:19) Complete Blood Count (05/13/25 15:19) B-Type Natriuretic Peptide (05/13/25 15:19) Chest Portable (05/13/25 15:19) Urinalysis (05/13/25 15:19) Basic Metabolic Panel (05/13/25 15:19) Troponin-I Hs (05/13/25 16:19) Troponin-I Hs (05/13/25 18:19) Blood Culture (05/13/25 16:05) Lactic Acid W/ Reflex Order (05/13/25 16:05) Ceftriaxone Ivpb Rocephin (05/13/25 16:15) Azithromycin 500mg/ 250ml (Zithromax 50 (05/13/25 16:15) Vital Signs Date Time Temp Pulse Resp B/P (MAP) Pulse Ox O2 Delivery O2 Flow Rate FiO2 05/13/25 15:42 91 36 98 Non-Rebreather 10 N/A 05/13/25 15:40 91 32 107/71 (83) 98 05/13/25 15:28 98.8 86 18 114/73 92 98.8 05/13/25 14:59 88 Laboratory Tests Test 8/25/25 15:31 White Blood Count Pending Departure 1 Departure Time of Disposition: 16:08 Impression: Primary Impression: Acute respiratory failure Qualified Codes: J96.01 - Acute respiratory failure with hypoxia Additional Impressions: Pneumonia Qualified Codes: J18.9 - Pneumonia, unspecified organism CHF exacerbation Qualified Codes: I50.43 - Acute on chronic combined systolic (congestive) and diastolic (congestive) heart failure Disposition: ADMITTED INPATIENT Admit to: Med Surg Condition: Guarded Critical Care Note Critical Care Time?: Yes (90 min-critical care time only) Stability Stability form required: No Heart Score Heart Score: Heart Score Response (Comments) Value History Highly Suspicious 2 EKG Normal 0 Age >65 2 Risk Factors >3 or Hx ASHD 2 Troponin Normal limit 0 Total 6 I personally scribed for JAMIA UMAÑA MD ([email or web address]) on 05/13/25 at 15:22. Electronically submitted by Luigi Weiss ([email or web address]). I personally scribed for JAMIA UMAÑA MD ([email or web address]) on 05/13/25 at 16:03. Electronically submitted by Luigi Weiss ([email or web address]). JAMIA UMAÑA MD May 13, 2025 15:22
[2025-05-13 15:42] VITALS: PULSE 91; RESP 36; O2SAT 98
--- NOTE | 2025-05-13 15:50 | DVH ---
AP portable chest CLINICAL INDICATION: sob Comparison: 05/01/2025 FINDINGS: Infiltrates in the right lung. Left lung clear. Heart size enlarged. IMPRESSION: 1. Right-sided pneumonia worse than on previous exam
[2025-05-13] MEDS: FUROSEMIDE 40 MG/4 ML VIAL IV ONE (16:10)
[2025-05-13 16:12] LABS: Hematocrit 34.6 % (41.0-53.0); Hemoglobin 10.6 g/dL (13.5-17.5); Mean Corpuscular Hemoglobin 21.2 pg (28.0-32.0); Mean Corpuscular Volume 69.0 fL (80.0-100.0); Nucleated Red Blood Cells % 0.2 %
[2025-05-13 16:13] LABS: Chloride 107 mmol/L (98-107); Potassium 3.8 mmol/L (3.5-5.1); Sodium 141 mmol/L (136-145)
[2025-05-13 16:14] LABS: Anion Gap 15 (5-15); Calcium 8.8 mg/dL (8.7-10.4); Carbon Dioxide 19 mmol/L (20-31)
[2025-05-13 16:19] LABS: BUN/Creatinine Ratio 16.4 (10.0-20.0); Blood Urea Nitrogen 21 mg/dL (9-23); Glucose 87 mg/dL (74-106)
[2025-05-13] MEDS: AZITHROMYCIN 500MG/ 250ML 250 ML IV ONE (17:21)
[2025-05-13 18:07] LABS: Lactic Acid w/Reflex 6.6 mmol/L (0.4-2.0)
[2025-05-13] MEDS: SODIUM CHLORIDE 0.9% 1,000 ML IV ONE ×2 (18:34→18:35)
[2025-05-13 20:00] VITALS: BP 126/80; PULSE 91; O2SAT 95
[2025-05-13 20:08] VITALS: PULSE 85; RESP 25; O2SAT 97
[2025-05-13] MEDS: ASPirin-EC 325mg tab PO ONE (20:52)
[2025-05-13] MEDS ORDERED: ONDANSETRON HCL 4 MG/2 ML VIAL IV PRN (21:45)
[2025-05-13] MEDS ORDERED: ACETAMINOPHEN 325 MG TAB PO PRN (21:45)
[2025-05-13] MEDS ORDERED: HYDROcodone-ACET 5/325MG TAB PO PRN (21:45)
[2025-05-13] MEDS ORDERED: DOCUSATE SOD 100 MG CAP PO PRN (21:45)
[2025-05-13] MEDS: DEXTROSE (50%) 50ML SYRG IV PRN (21:54)
[2025-05-13 22:00] VITALS: BP 99/68; PULSE 88; O2SAT 94
[2025-05-13] MEDS: InsuLIN REG 1unit/0.01ml Soln (100units/ml) SC SCH (22:00)
[2025-05-13] MEDS: ACCU-CHEK COMFORT CURVE STRIP VI SCH (22:02)
[2025-05-13] MEDS: SODIUM CHLOR 0.9% PF (SALINE LOCK) 10ML VIAL/SYR IV SCH (22:16)
[2025-05-13] MEDS: ATORVASTATIN 20 MG TAB PO SCH (22:21)
[2025-05-13] MEDS: CARVEDILOL 12.5 MG TAB PO SCH (22:21)
--- NOTE | 2025-05-13 23:09 | DVHHP2 ---
History of Present Illness Reason for Visit: Acute on chronic systolic heart failure History of Present Illness The patient is a 74-year-old male with past medical history of CHF, diabetes mellitus, liver disease, hypertension, and hyperlipidemia who presented to [facility] ED with complaint of shortness of breaths. Patient reports that he has been experiencing worsening shortness of breaths with associated leg swelling and chest pressure since this morning. Patient was on 87% on 2L despite giving 2 DuoNeb treatments en route, placing him on a non- rebreather mask upon arrival. Patient was seen and evaluated in the ED hypoxic, increased work of breathing, desaturating on BiPAP, and subsequently intubated. Laboratory data shows WBC 3.4, hemoglobin 10.6, hematocrit 34.6, platelets 119, sodium 141, potassium 3.8, BUN 21, creatinine 1.28, glucose 87, calcium 8.8, BNP > 5000, troponin 87, lactic acid 8.3, blood pressure 126/80, heart rate 85, temp erature 97.7 F, O2 saturation 96% ventilator. Chest x-ray revealing right-sided pneumonia worse than on previous exam. Patient was started on IV antibiotic regimen azithromycin, please see medication orders section in the computer. On my assessment, patient is fully intubated, no diaphoresis, no diarrhea, no vomiting, no fever, no chills. Patient was admitted for further evaluation and medical management. Past Medical History CHF, DM, High Lipids, HTN, Liver Disease Past Surgical History PTCA Family History Reviewed, noncontributory to the management of this case. Past Social History The patient lives at home, denies smoking, alcohol or illicit drugs abuse. Review of Systems Constitutional: Yes: Weakness; No: Fever, Chills, Sweats, Malaise, Other Eyes: No: Pain, Vision change, Conjunctivae inflammation, Eyelid inflammation, Other, Redness ENT: No: Ear pain, Ear discharge, Nose pain, Nose discharge, Nose congestion, Mouth pain, Mouth swelling, Throat pain, Throat swelling, Other Respiratory: Shortness of breath, SOB with excertion, Other (SOB at rest); No: Cough, Dry, Wheezing, Hemoptysis, Pleuritic Pain, Sputum, Wheezing Cardiovascular: No: Chest Pain, Palpitations, Orthopnea, Paroxysmal Noc. Dyspnea, Edema, Lt Headedness, Other Gastrointestinal: No: Nausea, Vomiting, Abdominal Pain, Diarrhea, Constipation, Melena, Hematochezia, Other Genitourinary: No Dysuria, No Frequency, No Incontinence, No Hematuria, No Retention; Other (Edwards catheter in place) Musculoskeletal: No: other, neck pain, shoulder pain, arm pain, back pain, hand pain, leg pain, foot pain Skin: No: Rash, Lesions, Jaundice, Bruising, Other Neurological: Weakness; No: Numbness, Incoordination, Change in speech, Confusion, Seizures, Other Allergies: Coded Allergies: NO KNOWN ALLERGIES (Unverified , 01/11/25) Medications Current Medications Medications Dose Ordered Sig/Mikki Route Start Time Stop Time Status Last Admin Dose Admin Furosemide 40 mg DAILY IV 05/14/25 10:00 Ceftriaxone Sodium 50 ml @ 100 mls/hr DAILY@09 IV 05/14/25 09:00 Azithromycin 250 ml @ 125 mls/hr DAILY IV 05/14/25 10:00 Atorvastatin Calcium 20 mg HS PO 05/13/25 22:00 05/13/25 22:21 20 MG Aspirin 81 mg DAILY PO 05/14/25 10:00 Carvedilol 12.5 mg Q12HR PO 05/13/25 22:00 05/13/25 22:21 12.5 MG Spironolactone 25 mg DAILY PO 05/14/25 10:00 Diagnostic Test (Pha) 1 strip ACHS 05/13/25 22:00 05/13/25 22:02 1 STRIP Insulin Human Regular ACHS SC 05/13/25 22:00 Dextrose 50 ml UD PRN IV 05/13/25 21:45 05/13/25 21:54 50 ML Sodium Chloride 10 ml Q8HR IV 05/13/25 22:00 05/13/25 22:16 10 ML Acetaminophen/ Hydrocodone Bitart 1 tab Q4HP PRN PO 05/13/25 21:45 Ondansetron HCl 4 mg Q4HP PRN IV 05/13/25 21:45 Docusate Sodium 100 mg BIDPRN PRN PO 05/13/25 21:45 Acetaminophen 650 mg Q6HP PRN PO 05/13/25 21:45 Exam Vital Signs Vital Signs Date Time Temp Pulse Resp B/P (MAP) Pulse Ox O2 Delivery O2 Flow Rate FiO2 05/13/25 22:21 77 102/80 05/13/25 22:00 20 92 8/25/25 20:08 Bi-Pap+ 100 100 05/13/25 20:08 97.7 97.7 05/13/25 15:42 10 General Appearance: Other (Fully intubated) HEENT: Atraumatic, PERRLA, EOMI, Mucous membr. moist/pink Respiratory: Normal air movement, Other (On ventilator) Cardiovascular: Regular rate, Normal S1, Normal S2, No murmurs Abdominal: Normal bowel sounds, Soft, No tenderness, No hepatospenomegaly, No masses Extremities: No clubbing, No cyanosis, Normal pulses, Other (Lower extremity swelling/edema) Skin: No rashes, No significant lesion Neuro: Other (Generalized weakness) Psych/Mental Status: Other (Unable to assess) Labs/Xrays Labs Test 05/13/25 19:33 05/13/25 15:31 Range/Units Lactic Acid Level 8.3 *H 0.4-2.0 mmol/L Troponin I High Sensitivity 87 *H </=54 ng/L White Blood Count 3.4 L 4.4-10.8 10^3/uL Red Blood Count 5.02 4.5-5.90 10^6/uL Hemoglobin 10.6 L 13.5-17.5 g/dL Hematocrit 34.6 L 41.0-53.0 % Mean Corpuscular Volume 69.0 L 80.0-100.0 fL Mean Corpuscular Hemoglobin 21.2 L 28.0-32.0 pg Mean Corpuscular Hemoglobin Concent 30.7 L 32.0-36.0 g/dL Red Cell Distribution Width 18.6 H 11.8-14.3 % Platelet Count 119 L 140-450 10^3/uL Mean Platelet Volume 8.5 6.9-10.8 fL Neutrophils (%) (Auto) 74.6 37.0-80.0 % Lymphocytes (%) (Auto) 16.1 10.0-50.0 % Monocytes (%) (Auto) 9.1 0.0-12.0 % Eosinophils (%) (Auto) 0.0 0.0-7.0 % Basophils (%) (Auto) 0.2 0.0-2.0 % Neutrophils # (Auto) 2.6 1.6-8.6 10 ^3/uL Lymphocytes # (Auto) 0.6 0.4-5.4 10 ^3/uL Monocytes # (Auto) 0.3 0-1.3 10 ^3/uL Eosinophils # (Auto) 0 0-0.8 10 ^3/uL Basophils # (Auto) 0 0-0.2 10 ^3/uL Nucleated Red Blood Cells 0.2 % Sodium Level 141 136-145 mmol/L Potassium Level 3.8 3.5-5.1 mmol/L Chloride Level 107 98-107 mmol/L Carbon Dioxide Level 19 #L 20-31 mmol/L Anion Gap 15 5-15 Blood Urea Nitrogen 21 9-23 mg/dL Creatinine 1.28 0.700-1.30 mg/dL Glomerular Filtration Rate Calc 59 >90 mL/min BUN/Creatinine Ratio 16.4 10.0-20.0 Serum Glucose 87 74-106 mg/dL Calcium Level 8.8 8.7-10.4 mg/dL B-Type Natriuretic Peptide > 5000.00 0-100 pg/mL PATIENT: TIM NULL CECILACCT: [id number] UNIT: [id number] : 1950 LOC: ER ROOM / BED: / AGE / SEX: 74 / M ADM STATUS: REG ER SERVICE 1519 ORDERING PHYSICIAN: JAMIA UMAÑA MD PROCEDURE(s): CXRP - CHEST PORTABLE REASON: sob ORDER NUMBER(s): [id number], ACCESSION NUMBER(s): [id number] AP portable chest CLINICAL INDICATION: sob Comparison: 05/01/2025 FINDINGS: Infiltrates in the right lung. Left lung clear. Heart size enlarged. IMPRESSION: 1. Right-sided pneumonia worse than on previous exam ORDERING PHYSICIAN: KAROLINA SALAZAR MD PROCEDURE(s): CXR1 - CHEST XRAY 1 VIEW REASON: REASSESS LINE PLACEMENT ORDER NUMBER(s): [id number], ACCESSION NUMBER(s): [id number] CHEST RADIOGRAPH Indication: REASSESS LINE PLACEMENT Technique: 1 view Comparison: XY CHEST PORTABLE on DOS: 05/13/25, XY CHEST XRAY 1 VIEW on DOS: 05/01/25, XY CHEST XRAY 1 VIEW on DOS: 01/23/25 FINDINGS: Lines and Tubes: Endotracheal tube terminates approximately 4 cm above the mahad a. Enteric tube courses midline subdiaphragmatically below field of view. Lungs/Pleura: Similar consolidation throughout the right lung with relative sparing of the apex. Minimal left retrocardiac patchy attenuation. No evident pleural abnormality. Cardiomediastinum: Unchanged. Other: Unchanged osseous structures. IMPRESSION: 1. Adequately positioned endotracheal and enteric tubes new from prior exam. 2. Similar diffuse right and mild left basilar airspace disease. SEPSIS Sepsis Screen Date sepsis recognized/suspect: May 13, 2025 Time Sepsis recognized/suspect: 2011 Recent Procedure: No On Antibiotic Therapy: Yes Respiratory Rate >20: Yes Heart Rate >90: No Temp<36 C (96.8 F) or >38.3 C: No SBP <90 or MAP <65 mmHG: No New Acute Mental Status Change: No Is the patient on CPAP, BIPAP,: No Physician Orders Chest Portable (05/13/25 15:19) Urinalysis (05/13/25 15:19) Blood Culture (05/13/25 16:05) Sodium Chloride 0.9% (05/13/25 18:15) BIPAP (05/13/25 21:30) Consistent Carb(Ccho)Diabetes (05/14/25 Breakfast) Furosemide Injection (Lasix Injection) (05/14/25 10:00) Ceftriaxone 1gm/50ml D5w (Rocephin) (05/14/25 09:00) Azithromycin 500mg/ 250ml (Zithromax 50 (05/14/25 10:00) Atorvastatin (Lipitor) (05/13/25 22:00) Aspirin Tablet (05/14/25 10:00) Carvedilol Tablet (Coreg Tablet) (05/13/25 22:00) Spironolactone (Aldactone) (05/14/25 10:00) Glucose Blood (Accu-Chek Comfort Curve T (05/13/25 22:00) Insulin R (Human) (Insulin R) (05/13/25 22:00) Dextrose 50% Syringe (05/13/25 21:45) Allergies (05/13/25 21:31) Code Status (05/13/25 21:31) Sodium Chloride Lock (Saline Lock Ns) (05/13/25 22:00) Oxygen Per Hour (05/13/25 21:31) Hydrocodone-Acet 5/325mg Tab ([place] /32 (05/13/25 21:45) Ondansetron Hcl (Zofran) (05/13/25 21:45) Docusate Sodium Capsule (Colace Capsule) (05/13/25 21:45) Fall Risk Precautions In Place QSHIFT (05/13/25 21:31) Complete Blood Count (05/14/25 04:00) Comprehensive Metabolic Panel (05/14/25 04:00) Cardiac Diet-2gna,Lofat,Lochol (05/14/25 Breakfast) Condition: Serious (05/13/25 21:31) Acetaminophen Tablet (Tylenol Tablet) (05/13/25 21:45) Maintain Bed Rest (05/13/25 21:31) Sequential Compression Device (05/13/25 ) Vital Signs Date Time Temp Pulse Resp B/P (MAP) Pulse Ox O2 Delivery O2 Flow Rate FiO2 05/13/25 22:21 77 102/80 05/13/25 22:00 80 20 102/80 (87) 92 05/13/25 21:00 77 19 99/68 (78) 94 05/13/25 20:08 85 25 97 Bi-Pap+ 100 100 05/13/25 20:08 97.7 85 25 126/80 (95) 96 97.7 05/13/25 20:00 91 126/80 95 Facial BiPAP Mask 100 05/13/25 18:50 91 127/90 Facial BiPAP Mask 100 05/13/25 17:30 82 20 109/66 (80) 95 05/13/25 16:50 92 05/13/25 16:10 115/70 05/13/25 15:42 91 36 98 Non-Rebreather 10 N/A 05/13/25 15:40 91 32 107/71 (83) 98 05/13/25 15:28 98.8 86 18 114/73 92 98.8 Laboratory Tests Test 05/13/25 15:31 05/13/25 17:19 05/13/25 19:33 White Blood Count 3.4 10^3/uL (4.4-10.8) L Lactic Acid Level 6.6 mmol/L (0.4-2.0) *H 8.3 mmol/L (0.4-2.0) *H Medications Medications Dose Ordered Sig/Mikki Route Start Time Stop Time Status Last Admin Dose Admin Aspirin 325 mg ONCE ONCE PO 05/13/25 20:45 05/13/25 20:46 DC 05/13/25 20:52 325 MG Atorvastatin Calcium 20 mg HS PO 05/13/25 22:00 05/13/25 22:21 20 MG Azithromycin 250 ml @ 125 mls/hr ONCE ONCE IV 05/13/25 16:15 05/13/25 18:14 DC 05/13/25 17:21 125 MLS/HR Carvedilol 12.5 mg Q12HR PO 05/13/25 22:00 05/13/25 22:21 12.5 MG Ceftriaxone Sodium 50 ml @ 100 mls/hr ONCE ONCE IV 05/13/25 16:15 05/13/25 16:44 DC 05/13/25 16:20 100 MLS/HR Dextrose 50 ml UD PRN IV 05/13/25 21:45 05/13/25 21:54 50 ML Diagnostic Test (Pha) 1 strip ACHS 05/13/25 22:00 05/13/25 22:02 1 STRIP Furosemide 40 mg ONCE ONCE IV 05/13/25 15:30 05/13/25 15:31 DC 05/13/25 16:10 40 MG Sodium Chloride 10 ml Q8HR IV 05/13/25 22:00 05/13/25 22:16 10 ML Sodium Chloride 1,000 ml @ 1,000 mls/hr Q1H ONCE IV 05/13/25 18:15 05/13/25 19:14 DC 05/13/25 18:34 1,000 MLS/HR Assessment/Plan Assessment/Plan Acute respiratory failure with hypoxia Elevated lactic acid level Pneumonia, unspecified organism Acute on chronic systolic heart failure Plan 1. Admit to intensive care unit 2. Breathing treatment 3. Pain control management 4. IV antibiotic management 5. Management of fluids and electrolytes 6. Consultation for Cardiology 7. Diagnostic test chest x-ray 8. DVT prophylaxis-on aspirin 9. Repeat labs CBC, CMP in a.m. 10. Home medication reviewed and reconciled 11. Continue with current medical management 12. Treatment plan discussed with patient and RN. Patient verbalized understanding. Plan discussed with: Patient, Other (RN) My Orders Orders - KYAW REN DNP Procedure Category Date Status Time Consistent DIET 05/14/25 Transmitted Carb(Ccho)Diabetes Breakfast Furosemide Injection PHA 05/14/25 In Process (Lasix Injection) 10:00 Ceftriaxone 1gm/50ml PHA 05/14/25 In Process D5w (Rocephin) 09:00 Azithromycin 500mg/ PHA 05/14/25 In Process 250ml (Zithromax 50 10:00 Atorvastatin (Lipitor) PHA 05/13/25 In Process 22:00 Aspirin Tablet PHA 05/14/25 In Process 10:00 Carvedilol Tablet PHA 05/13/25 In Process (Coreg Tablet) 22:00 Spironolactone PHA 05/14/25 In Process (Aldactone) 10:00 Glucose Blood PHA 05/13/25 In Process (Accu-Chek Comfort 22:00 Insulin R (Human) PHA 05/13/25 In Process (Insulin R) 22:00 Dextrose 50% Syringe PHA 05/13/25 In Process 21:45 Allergies SOPHIA 05/13/25 In Process 21:31 Code Status CODE 05/13/25 Transmitted 21:31 Sodium Chloride Lock PHA 05/13/25 In Process (Saline Lock Ns) 22:00 Oxygen Per Hour RT 05/13/25 Transmitted 21:31 Hydrocodone-Acet PHA 05/13/25 In Process 5/325mg Tab ([place] 21:45 Ondansetron Hcl PHA 05/13/25 In Process (Zofran) 21:45 Docusate Sodium PHA 05/13/25 In Process Capsule (Colace 21:45 Fall Risk Precautions SOPHIA 05/13/[address] 21:31 Complete Blood Count LAB 05/14/25 Verified 04:00 Comprehensive LAB 05/14/25 Verified Metabolic Panel 04:00 Cardiac DIET 05/14/25 Transmitted Diet-2gna,Lofat,Lochol Breakfast Condition: Serious SOPHIA 05/13/25 In Process 21:31 Acetaminophen Tablet PHA 05/13/25 In Process (Tylenol Tablet) 21:45 Maintain Bed Rest SOPHIA 05/13/25 In Process 21:31 Sequential SOPHIA 05/13/25 In Process Compression Device Problem List: (1) Acute respiratory failure with hypoxia (2) Elevated lactic acid level (3) Pneumonia, unspecified organism (4) Acute on chronic systolic heart failure Date of Service: May 13, 2025 Billing Provider: KYAW REN DNP Common Visit Codes: 11995-INUCCUP INP/OBS CARE (HIGH) KYAW REN DNP May 13, 2025 23:09
[2025-05-13] MEDS ORDERED: NITROGLYCERIN 0.4 MG SL TAB SL PRN (23:15)
[2025-05-13] MEDS ORDERED: MORPHINE SULFATE INJ 2 MG/ml SYRG IV PRN (23:15)
[2025-05-13] MEDS: methylPREDNISolone SOD SUCC 125 MG/2 ML VL IV ONE (23:42)
[2025-05-14] VITALS (99 sets, daily range): BP systolic 76–171; BP diastolic 51–89; PULSE 66–120; RESP 17–27; TEMP 32; O2SAT 89–100
[2025-05-14 00:12] LABS: Urine Protein, UAD 2+ (Negative)
[2025-05-14 00:29] LABS: Base Excess -19.9 mmol/L (-2.0-3.0)
[2025-05-14] MEDS: SODIUM BICARB 8.4% 50Meq/50ml SYR Vial IV ONE (00:48)
[2025-05-14] MEDS: ETOMIDATE (2MG/ML) 20ML VIAL IV ONE ×2 (01:03→01:59)
[2025-05-14] MEDS: ROCURONIUM 10MG/ML 10ML VIAL IV ONE ×2 (01:05→01:59)
[2025-05-14] MEDS: DOPamine 1600MCG/ML D5W 250 ML IV SCH (01:10)
[2025-05-14] MEDS: MIDAZOLAM DRIP 50 mg/50mL 50 ML IV SCH (01:10)
--- NOTE | 2025-05-14 01:21 | ED.PDOC ---
Was a procedure done? Was a procedure done?: Yes Sedation Sedation?: Yes Informed consent obtained: Yes Sedation start time: 01:00 Sedation end time: 01:15 Sedation total time: 15 minutes Intubation Indication: Respiratory Insufficiency Prep: Preoxygenation (BIPAP) Pretreated with: Nothing Medicated with: Other (20mg etomidate, 100mg rocuronium) Intubation Approach: Orotracheal (7.5) Intubation size: cm (23 at the lip) Informed consent obtained: Yes Risks/benefits/alt described: Yes Notes This patient was never signed out to me. I was Called for Emergent intubation for this patient. This is the patient that is admitted to the medicine team. Medicine team said they can not intubate. Prior to intubation patient was on a BiPAP and failed BiPAP. Successful intubation verified via proper placement and X-ray and direct visualization with the GlideScope. This was performed from 1st attempt. Complications none apparent. Suspected aspiration pneumonia. Patient was given antibiotics. I asked the patient if he agrees and consents to us intubating him and he nodded his head agreeing yes. I personally scribed for MONI GRUBER DO ([email or web address]) on 05/14/25 at 01:21. Electronically submitted by Cholo Torres [email or web address]). MONI GRUBER DO May 14, 2025 01:21
[2025-05-14] MEDS: FUROSEMIDE 40 MG/4 ML VIAL IV ONE ×2 (01:27→07:00)
[2025-05-14] MEDS: FUROSEMIDE 40 MG/4 ML VIAL ONE (01:35)
--- NOTE | 2025-05-14 01:41 | DVH ---
CHEST RADIOGRAPH Indication: REASSESS LINE PLACEMENT Technique: 1 view Comparison: XY CHEST PORTABLE on DOS: 05/13/25, XY CHEST XRAY 1 VIEW on DOS: 05/01/25, XY CHEST XRAY 1 VIEW on DOS: 01/23/25 FINDINGS: Lines and Tubes: Endotracheal tube terminates approximately 4 cm above the yimi. Enteric tube cours es midline subdiaphragmatically below field of view. Lungs/Pleura: Similar consolidation throughout the right lung with relative sparing of the apex. Mini mal left retrocardiac patchy attenuation. No evident pleural abnormality. Cardiomediastinum: Unchanged. Other: Unchanged osseous structures. IMPRESSION: 1. Adequately positioned endotracheal and enteric tubes new from prior exam. 2. Similar diffuse right and mild left basilar airspace disease.
[2025-05-14] MEDS: PIPERACILLIN-TAZOB 3.375GM 100 ML IV ONE (01:46)
[2025-05-14] MEDS: DOPamine 1600MCG/ML D5W 250 ML IV ONE (01:59)
[2025-05-14] MEDS: MIDAZOLAM DRIP 50 mg/50mL 50 ML IV ONE (01:59)
[2025-05-14] MEDS: NOREPINEPHRINE 8 MG/250ML KIT 250 ML IV SCH (03:30)
[2025-05-14 04:17] LABS: Base Excess -9.2 mmol/L (-2.0-3.0)
[2025-05-14 04:37] LABS: Hematocrit 35.8 % (41.0-53.0); Hemoglobin 11.1 g/dL (13.5-17.5); Mean Corpuscular Hemoglobin 21.6 pg (28.0-32.0); Mean Corpuscular Volume 69.6 fL (80.0-100.0); Nucleated Red Blood Cells % 0.3 %
[2025-05-14 04:55] LABS: Anion Gap 20 (5-15); BUN/Creatinine Ratio 12.4 (10.0-20.0); Blood Urea Nitrogen 21 mg/dL (9-23); Chloride 106 mmol/L (98-107); Potassium 3.9 mmol/L (3.5-5.1); Sodium 143 mmol/L (136-145); Total Protein 7.6 g/dL (5.7-8.2)
[2025-05-14 04:57] LABS: Albumin 3.6 g/dL (3.2-4.8)
[2025-05-14 05:10] LABS: Lactic Acid w/Reflex 9.8 mmol/L (0.4-2.0)
[2025-05-14 05:21] LABS: Alanine Aminotransferase 52 U/L (7-40); Alkaline Phosphatase 209 U/L (46-116); Bilirubin, Total 2.5 mg/dL (0.2-1.0); Calcium 8.4 mg/dL (8.7-10.4); Carbon Dioxide 17 mmol/L (20-31); Glucose 148 mg/dL (74-106)
[2025-05-14 05:26] LABS: Magnesium 1.9 mg/dL (1.6-2.6)
--- NOTE | 2025-05-14 06:54 | DVH ---
EXAM: CT HEAD WITHOUT CONTRAST INDICATION: UNEQUAL PUPILS TECHNIQUE: CT of the head without intravenous contrast. Coronal and sagittal reformatted images are s ubmitted. Radiation Dose : 1. Head: CT Dose: CTDI volume is 67.1 mGy. Dose-length product is 1.71 mGy*cm The dose indicators for CT are the volume Computed Tomography (CT) Dose Index (CTDIvol) and the Dose Length Product (DLP), and are measured in units of mGy and mGy-cm, respectively. These indicators are not patient dose, but values generated from the CT scanner acquisition factors. The report includes radiation exposure data for exposures received during this examination. All CT scans at this medical facility are performed using dose modulation techniques as appropriate to a performed exam including the following: Automated exposure control was utilized; adjustment of the MA and/or KV according to patient size; and use of iterative reconstruction technique. COMPARISON: None FINDINGS: There is no evidence of acute intracranial hemorrhage, extra-axial collection, mass effect, midline s hift, herniation or hydrocephalus. There are periventricular and subcortical hypodensities, nonspecific, but likely reflecting sequelae of chronic microvascular ischemic changes. The ventricles, sulci and cisterns are age appropriate. The alcazar-white differentiation is intact. The visualized paranasal sinuses and mastoid air cells are clear. There is a right ocular lens prosthesis. No depressed calvarial fracture. The surrounding soft tissues are unremarkable. IMPRESSION: 1. No acute intracranial abnormality. 2. Right ocular lens prosthesis. 3. Mild periventricular and subcortical white matter disease likely related to sequelae of chronic mi crovascular ischemic changes although other etiologies are not excluded.
[2025-05-14] MEDS ORDERED: SODIUM CHLORIDE 0.9% 500 ML IV ONE (07:00)
[2025-05-14 07:54] LABS: INR 1.71 (0.9-1.15); Partial Thromboplastin Time 35.8 SEC (24.5-34.5); Prothrombin Time 17.2 sec (9.3-11.8)
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
[2025-05-14] MEDS: FUROSEMIDE 40 MG/4 ML VIAL IV SCH (09:15)
[2025-05-14] MEDS: LACTULOSE 20Gm/30ML SOLN PO SCH (09:15)
[2025-05-14] MEDS: AZITHROMYCIN 500MG/ 250ML 250 ML IV SCH (09:16)
[2025-05-14] MEDS: SPIRONOLACTONE 25 MG TAB PO SCH (09:16)
[2025-05-14] MEDS: fentaNYL Drip 2500mCg/250mlNS 250 ML IV SCH (10:15)
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
[2025-05-14] MEDS ORDERED: VANCOMYCIN PER PHARMACY 0 MG IV SCH (12:00)
[2025-05-14] MEDS: CEFEPIME 1GM/50ML 50 ML IV ONE (12:09)
[2025-05-14 12:47] LABS: Base Excess -1.4 mmol/L (-2.0-3.0)
[2025-05-14] MEDS: VANCOMYCIN 1.25GM/250ML 250 ML IV ONE (13:05)
[2025-05-14 13:30] LABS: Free T4 (Free Thyroxine) 0.99 ng/dL (0.89-1.76)
[2025-05-14] MEDS ORDERED: Jevity 1.2 Cal/Fiber 1 Liter GT SCH (16:30)
[2025-05-14] MEDS: PANTOPRAZOLE 40 MG/10 ML VIAL INJ IV ONE (17:05)
--- NOTE | 2025-05-14 17:41 | DVHPNRES ---
Progress Note Date Seen: May 14, 2025 Resident Creating Document: DUARTE SPIVEY RESIDENT Medical Necessity Reason Pt with a Central, PICC or Fol: Yes The following are medically ne: PICC Line, Edwards Catheter Subjective Review of Systems This is a 74-year-old male with past medical history of CHF on home O2 2 to 3L, diabetes mellitus, liver disease, hypertension, and hyperlipidemia who presented to [facility] ED with complaint of shortness of breaths. Patient reports that he has been experiencing worsening shortness of breaths with associated leg swelling and chest pressure since this morning. Patient was on 87% on 2L despite giving 2 DuoNeb treatments en route, placing him on a non- rebreather mask upon arrival. in the ED patient was hypoxic, increased work of breathing, desaturating on BiPAP and subsequently intubated. Patient was seen and examined in the ICU. he is on mechanical ventilation with FiO2 40%, tidal volume 500 mL, peep 7, respiratory rate 20. no overnight events. started NG tube feeding with Jevity. Objective vital signs Vital Sign Date Time Temp Pulse Resp B/P (MAP) Pulse Ox O2 Delivery O2 Flow Rate FiO2 05/14/25 17:00 82/54 05/14/25 16:15 98.4 87 27 99 209.1 05/14/25 16:00 40 05/14/25 16:00 Mechanical Ventilator+ 05/13/25 15:42 10 Total Intake and Output 05/13/25 05/13/25 05/14/25 15:00 23:00 07:00 Intake Total 850 ml 183.68 ml Output Total 450 ml Balance 850 ml -266.32 ml medications Current Medications Medications Dose Ordered Sig/Mikki Route Start Time Stop Time Status Last Admin Dose Admin Diagnostic Test (Pha) 1 strip ACHS 05/13/25 22:00 05/14/25 17:05 1 STRIP Dextrose 50 ml UD PRN IV 05/13/25 21:45 05/14/25 03:09 50 ML Sodium Chloride 10 ml Q8HR IV 05/13/25 22:00 05/14/25 13:06 10 ML Ondansetron HCl 4 mg Q4HP PRN IV 05/13/25 21:45 Midazolam HCl 50 ml @ 1 mls/hr Q24H IV 05/14/25 01:15 05/14/25 13:08 10 MLS/HR Norepinephrine Bitartrate 250 ml @ 3.75 mls/hr Q24H IV 05/14/25 01:15 Dopamine HCl/ Dextrose 250 ml @ 12.788 mls/ hr [id number] IV 05/14/25 01:15 05/14/25 01:10 25.575 MLS/HR Lactulose 30 ml BID PO 05/14/25 10:00 05/14/25 09:15 30 ML Fentanyl Citrate 250 ml @ 2.5 mls/hr Q24H IV 05/14/25 10:15 05/14/25 15:48 2.5 MLS/HR Enoxaparin Sodium 30 mg DAILY SC 05/15/25 10:00 Cefepime HCl 50 ml @ 12.5 mls/hr Q12HR IV 05/14/25 22:00 Vancomycin HCl 0 ml @ 0 mls/hr UD IV 05/14/25 12:00 Enteral Nutritional Formula 1,000 ml 30ML/HR GT 05/14/25 16:30 Pantoprazole Sodium 40 mg DAILY IV 05/15/25 10:00 Examination General: RASS -3, afebrile, mucosae are moist Cardiovascular: Normal S1 and S2. No murmurs, gallops or rubs Respiratory: Mechanically assisted ventilation, equal bilateral airway entree. Rales and crackles in the right side Abdomen: Soft, nontender, no organomegaly, normal bowel sounds MSK/skin: Mobilization of limbs cannot be evaluated. Skin is dry and warm. Neurological: Orientation cannot be assessed. No apparent motor no sensitive deficits. Pupils are unequal, reactive left pupil, status post prosthesis of right eye laboratory and microbiology Laboratory Tests 05/14/25 03:38 Test 05/14/25 03:38 Range/Units Serum Glucose 148 H 74-106 mg/dL Microbiology Date/Time Source Procedure Growth Status 05/14/25 02:46 Nose MRSA Screen - Final Complete 05/13/25 17:25 Blood Blood Culture - Preliminary NO GROWTH AFTER 24 HOURS OF INCUBATION. Resulted Labs and/or images reviewed: Labs reviewed by me, Image(s) reviewed by me Problem List/Assessment/Plan Problem List/Assessment/Plan Assessment and plan: NEURO: Acute Metabolic encephalopathy likely secondary to acute hypoxic respiratory failure, status post intubation unequal pupil likely due to right eye prosthesis RASS score: -3 CARDIOVASCULAR: Acute on chronic decompensated systolic heart failure cardiogenic/ septic shock secondary to above NSTEMI type 2 likely secondary to above -chest x-ray demonstrated right-sided pneumonia with pulmonary vascular congestion -BNP> 5000 and trops were mildly elevated and flat - Echo on 02/10 demonstrated EF 10% with end-stage dilated heart failure, RVSP 38 mm Hg - patient is on IV dopamine and norepinephrine. - Hold GDM T because of the pressor support in shock PULMONARY: Acute hypoxic respiratory failure secondary to exacerbation of CHF/ pneumonia right-sided Gram-positive versus Gram-negative community acquired pneumonia possible aspiration pneumonia Rule out lung malignancy - chest x-ray demonstrated right-sided pneumonia with pulmonary vascular congestion - pending respiratory culture and MRSA negative - IV vancomycin as per pharmacy and IV cefepime 1 g q.12 hours GASTROINTESTINAL: chronic decompensated alcoholic liver cirrhosis- h/o abd mass History of hepatitis-C positive possible hepatocellular carcinoma hyperbilirubinemia with transaminitis likely secondary to cirrhosis coagulopathy, pancytopenia and hyperammonemia likely secondary to cirrhosis - Ordered CT chest abdomen pelvis without contrast and alpha-fetoprotein. - Lactulose 30 mL b.i.d. GENITOURINARY: Acute kidney injury likely secondary to shock - avoid nephrotoxic medication - strict I&O - monitor BMP ENDOCRINE: Hypoglycemia - started tube feeding with Jevity - monitor blood sugar closely METABOLIC: Moderate protein calorie malnutrition HEME: Chronic microcytic hypochromic anemia likely due to anemia of chronic disease Thrombocytopenia likely due to cirrhosis INFECTIOUS DISEASE: Right-sided Gram-positive/ Gram-negative community acquired pneumonia possible aspiration pneumonia - chest x-ray demonstrated right-sided pneumonia with pulmonary vascular congestion - pending blood culture, urine bacterial culture, respiratory culture and MRSA negative - IV vancomycin as per pharmacy and IV cefepime 1 g q.12 hours DIET: Jevity DVT prophylax:Lovenox GI prophylaxis:Protonix Bowel regimen:Lactulose Code status: modified DNR, no chest compression LINES/DRAINS/ACCESS: Rt upper arm PICC line on 05/14 ETT: Intubated on 05/13/25 IV access: peripheral line Drips: Dobutamine, norepinephrine, Phenylephrine, vasopressin, fentanyl and Versed Edwards catheter: placed on 05/13/2025 DISPOSITION: ICU Patient's status discussed with son and [id number] Critical care time spent more than 81 minutes, including patient care, chart review, and updating the family. Excluding any procedures. Case discussed with Dr. Hopkins Plan discussed with: Son, Other (RN Keyana) My Orders My Orders Orders - DUARTE SPIVEY Procedure Category Date Status Time Cefepime 1gm/ 50ml PHA 05/14/25 In Process (Maxipime 1gm/50ml) 22:00 Vancomycin Per PHA 05/14/25 In Process Pharmacy 12:00 Vancomycin,Random LAB 05/15/25 Verified 05:00 Vancomycin Per SOPHIA 05/14/25 In Process Pharmacy Protoc 12:16 Creatinine LAB 05/15/25 Verified 05:00 Abg W/ Co-Ox RT 05/14/25 Logged 11:45 Ct Ab Pel Wo Con-No CT 05/15/25 Logged Oral Or Iv 08:00 Afp Serum Tumor Marker LAB 05/14/25 Logged 16:48 Date of Service: May 14, 2025 Billing Provider: NOÉ HOPKINS MD Common Visit Codes: 36814-[id number] CARE 30-74 MIN, [id number] CARE-EACH +30MIN DUARTE SPIVEY May 14, 2025 17:41 NOÉ HOPKINS MD May 15, 2025 16:19
[2025-05-14] MEDS: LIDOCAINE 1% (LOCAL ANESTH.) PF 5ml SDV ID ONE (17:43)
[2025-05-14] MEDS: CEFEPIME 1GM/50ML 50 ML IV SCH (21:44)
[2025-05-14] MEDS: SODIUM CHLOR 0.9% PF (SALINE LOCK) 10ML VIAL/SYR IV SCH (21:50)
[2025-05-15] VITALS (107 sets, daily range): BP systolic 57–171; BP diastolic 25–122; PULSE 67–127; RESP 18–22; TEMP 97.2–99; O2SAT 90–100
[2025-05-15] MEDS: PHENYLEPHRINE HCL 10 MG/ML VL ONE (02:56)
[2025-05-15] MEDS: PHENYLEPHRINE INJ 80 MG in SODIUM CHL 0.9% 242 ML IV SCH (03:20)
[2025-05-15] MEDS: ALBUMIN 5% 250 ML IV ONE ×2 (03:34→03:36)
[2025-05-15 05:03] LABS: Chloride 107 mmol/L (98-107); Potassium 5.0 mmol/L (3.5-5.1); Sodium 142 mmol/L (136-145)
[2025-05-15 05:10] LABS: Alanine Aminotransferase 95 U/L (7-40); Albumin 2.8 g/dL (3.2-4.8); Alkaline Phosphatase 158 U/L (46-116); Anion Gap 12 (5-15); BUN/Creatinine Ratio 21.3 (10.0-20.0); Blood Urea Nitrogen 43 mg/dL (9-23); Calcium 7.8 mg/dL (8.7-10.4); Carbon Dioxide 23 mmol/L (20-31); Glucose 121 mg/dL (74-106); Magnesium 2.0 mg/dL (1.6-2.6); Total Protein 5.8 g/dL (5.7-8.2)
--- NOTE | 2025-05-15 05:10 | DVH ---
Exam: US US GUIDED VASCULAR ACCESS Clinical History: picc line placement Comparison: US LT UPPER DVT on DOS: 04/20/25, US BILAT LOW EXT ART DUPLEX on DOS: 04/18/25, CL ANGIO EXT REMITY BILAT Ab on DOS: 04/16/25, US BILAT LOW EXT ART DUPLEX on DOS: 04/15/25, CT CT ANGIO LOWER EX TREMITY on DOS: 04/13/25 Findings: Targeted sonographic evaluation of the arm vein was obtained utilizing grayscale and color Doppler im aging. IMPRESSION: Sonographic assistance for peripherally inserted central line placement. Please refer to procedural r eport for detailed findings. IMPRESSION: Ultrasound guided <<>> thoracentesis.
[2025-05-15 05:11] LABS: Bilirubin, Total 1.9 mg/dL (0.2-1.0)
--- NOTE | 2025-05-15 05:12 | DVH ---
CHEST RADIOGRAPH Indication: Status post mechanical ventilation Technique: Single frontal view of the chest was obtained COMPARISON: XY CHEST XRAY 1 VIEW on DOS: 05/14/25, XY CHEST PORTABLE on DOS: 05/13/25, US CHEST ULTRASO UND on DOS: 05/02/25, XY CHEST XRAY 1 VIEW on DOS: 05/01/25, XY CHEST XRAY 1 VIEW on DOS: 01/23/25 FINDINGS: Lines and Tubes: Endotracheal tube, enteric catheter and right PICC in satisfactory position. Lungs: Multifocal airspace disease. Pleura: No effusion. No pneumothorax. Cardiomediastinal contours: Unremarkable Bones: Unremarkable IMPRESSION: Lines and tubes in satisfactory position. Improving grade upper lobe pneumonia.
[2025-05-15] MEDS: SODIUM ZIRCONIUM CYCL 10 GM PAK PO ONE (05:45)
[2025-05-15 06:38] LABS: Hemoglobin 13.9 g/dL (13.5-17.5)
[2025-05-15 06:43] LABS: Hematocrit 43.3 % (41.0-53.0); Mean Corpuscular Hemoglobin 21.5 pg (28.0-32.0); Mean Corpuscular Volume 67.0 fL (80.0-100.0)
[2025-05-15 06:45] LABS: Base Excess -3.5 mmol/L (-2.0-3.0)
--- NOTE | 2025-05-15 08:27 | MEDREC ---
[facility] ASP Intervention Section I [facility] ASP Intervention: Review courses of therapy (Please consider d/c vancomycin since MRSA came back negative) MARIZOL SO [facility] RESIDENT May 15, 2025 08:27
--- NOTE | 2025-05-15 08:35 | ECG ---
[facility] Test Date: 2025-05-15 Test Time: 02:44:45 Pat Name: TIM NULL Department: icu Room: [address] [place] [address] A Gender: M Carpet Winder: SJ : 1950 Requested By: DUARTE SPIVEY Order Number: [id number] Reading MD: Hardeep Tate Measurements Intervals [place] Rate: 114 P: 98 MN: 191 QRS: -55 QRSD: 83 T: 117 QT: 322 QTc: 444 Interpretive Statements Sinus tachycardia LAD, consider left anterior fascicular block Borderline low voltage, extremity leads Nonspecific T abnormalities, lateral leads Electronically Signed On 05-15-2025 18:33:22 PDT by Hardeep Tate Please click the below link to view image of tracing.
[2025-05-15] MEDS: VASOPRESSIN 20 UNITS in SODIUM CHL 0.9% 99 ML IV SCH (08:55)
[2025-05-15] MEDS: DOBUTamine 1000MCG/ML 250 ML IV SCH (09:32)
[2025-05-15] MEDS: ENOXAPARIN SOD 30 MG/0.3 ML SYRINGE SC SCH (09:34)
[2025-05-15] MEDS: PANTOPRAZOLE 40 MG/10 ML VIAL INJ IV SCH (09:36)
[2025-05-15 09:48] LABS: Total Cells Counted 100.0 (100)
[2025-05-15 10:12] LABS: Hematocrit 52.1 % (41.0-53.0); Hemoglobin 16.3 g/dL (13.5-17.5); Mean Corpuscular Hemoglobin 21.2 pg (28.0-32.0); Mean Corpuscular Volume 67.7 fL (80.0-100.0); Nucleated Red Blood Cells % 0.2 %
--- NOTE | 2025-05-15 10:12 | DVHPN2 ---
Progress Note - Dictate Date Seen: May 15, 2025 Medical Necessity Reason Pt with a Central, PICC or Fol: Yes The following are medically ne: PICC Line, Edwards Catheter Subjective Mr. Mayberry is a 74 years old right-handed gentleman with a history of hypertension, diabetes, dyslipidemia, congestive heart failure on home oxygen, liver disease, he was brought to the [facility] on 05/13/2026 with a chief complaint of sharp breath, in the hospital, the patient was found to have acute respiratory failure, combined metabolic respiratory acidosis, and was intubated in the emergency room. 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 He moves to the [facility] earlier 2024, but 4 times he had difficult finding the way home when he is driving home with last one in the early 04/2025, family was trying to stopped him from driving I have seen and examined the patient, I have talked to his nurse, he is intubated, responsive to painful stimuli, unstable blood pressure Fentanyl 50 mcg/hour, Versed 2 mm/hour, Levo 30 mg per hour, fentanyl 50 milligram/hour, Dobutamine 2.5 mcg/kg/min, neosyn 180 mcg, vasopressin 0.03 units/min Urinalysis, 05/13/2025: WBC: 7, urine leukocyte esterase: Negative ABG, 05/14/2025: Hypoxia, metabolic acidosis, 05/15/2025: Metabolic acidosis WBC/HB/PLT/MCV, 05/14/2025: 3.4/11.1/107/69.6, 05/15/25: 15.4/13.9/171/67 PT/INR/ABG, 05/14/2025: 12.2/1.71/35.8 BUN/CR, 05/14/2025: 21/1.69 GFR, 05/14/2025: 42 Lactic acid, 05/13/2025: 6.6, 8.3, 9.8 Glucose, 05/14/2025: 44, 40, 136, 116, 106 TBI/AST/ALT/AP, 05/14/2025: 2.5/84/52/209, : 149/170/95/158 Ammonia, 05/14/2025: 54 Vitamin B12, 01/24/2025: 941, 05/14/25: 776 Folic acid, 01/25/2025: 8.94, 05/14/25:9.29 TSH, 01/24/2025: 2.6, 05/14/2025: 4.19 Chest x-ray, 05/14/2025: 1. Adequately positioned endotracheal and enteric tubes new from prior exam. 2. Similar diffuse right and mild left basilar airspace disease. CT head, 05/14/2025: 1. No acute intracranial abnormality. 2. Right ocular lens prosthesis. 3. Mild periventricular and subcortical white matter disease likely related to sequelae of chronic microvascular ischemic changes although other etiologies are not excluded vital signs Vital Sign Date Time Temp Pulse Resp B/P (MAP) Pulse Ox O2 Delivery O2 Flow Rate FiO2 05/15/25 09:55 127/79 05/15/25 09:48 101 20 95 40 05/15/25 09:30 98.6 209.5 05/15/25 06:00 Mechanical Ventilator+ 05/13/25 15:42 10 Total Intake and Output 05/14/25 05/14/25 05/15/25 15:00 23:00 07:00 Intake Total 824.218 ml 430.25 ml 1301.366 ml Output Total 300 ml 150 ml Balance 824.218 ml 130.25 ml 1151.366 ml medications Current Medications Medications Dose Ordered Sig/Mikki Route Start Time Stop Time Status Last Admin Dose Admin Diagnostic Test (Pha) 1 strip ACHS 05/13/25 22:00 05/15/25 06:38 1 STRIP Dextrose 50 ml UD PRN IV 05/13/25 21:45 05/14/25 03:09 50 ML Ondansetron HCl 4 mg Q4HP PRN IV 05/13/25 21:45 Midazolam HCl 50 ml @ 1 mls/hr Q24H IV 05/14/25 01:15 05/15/25 09:55 9 MLS/HR Lactulose 30 ml BID PO 05/14/25 10:00 05/15/25 09:34 30 ML Fentanyl Citrate 250 ml @ 2.5 mls/hr Q24H IV 05/14/25 10:15 05/14/25 15:48 2.5 MLS/HR Enoxaparin Sodium 30 mg DAILY SC 05/15/25 10:00 05/15/25 09:34 30 MG Cefepime HCl 50 ml @ 12.5 mls/hr Q12HR IV 05/14/25 22:00 05/15/25 09:34 12.5 MLS/HR Vancomycin HCl 0 ml @ 0 mls/hr UD IV 05/14/25 12:00 Enteral Nutritional Formula 1,000 ml 30ML/HR GT 05/14/25 16:30 Pantoprazole Sodium 40 mg DAILY IV 05/15/25 10:00 05/15/25 09:36 40 MG Sodium Chloride 10 ml QSHIFT@10,22 IV 05/14/25 22:00 05/15/25 09:36 10 ML Phenylephrine HCl 80 mg/Sodium Chloride 250 ml @ 7.5 mls/hr Q24H IV 05/15/25 03:00 05/15/25 03:20 7.5 MLS/HR Vasopressin 20 units/Sodium Chloride 100 ml @ 9 mls/hr Q11H7M IV 05/15/25 08:00 05/15/25 08:55 9 MLS/HR Dobutamine HCl/ Dextrose 250 ml @ 23.73 mls/ hr [id number] IV 05/15/25 08:45 05/15/25 09:32 11.865 MLS/HR Norepinephrine Bitartrate 32 mg/ Sodium Chloride 250 ml @ 0.938 mls/ hr Q24H IV 05/15/25 09:00 objective The patient is well-nourished and well-developed with no distress. The patient is intubated MENTAL STATUS: Subjective CRANIAL NERVES: Pupils are round with the right pupil is bigger and nonreactive, left pupil is reactive.There is corneal reflexes and doll's eyes phenomenon. No signs of facial weakness. There are gagging or coughing reflexes SENSATION: No responses to pain stimuli. MOTOR: Normal tone in the upper and lower extremity. Normal muscle bulk. No fasciculations. Occasional movement in the left leg noticed REFLEXES: Deep tendon reflexes are symmetrical. No pathological reflexes. CEREBELLAR/COORDINATION: Deferred GAIT/STATION: deferred. laboratory and microbiology Laboratory Tests 05/15/25 04:21 Test 05/15/25 04:21 Range/Units Serum Glucose 121 H 74-106 mg/dL Problem List Unequal pupil size, secondary to right prosthetic eye Coma Hypoxic encephalopathy Metabolic encephalopathy Hepatic encephalopathy Respiratory acidosis Metabolic acidosis Respiratory failure Cognitive dysfunction/mild cognitive impairment ? Alcohol related dementia/Korsakoff disease ? Alzheimer's dementia Liver failure ? Secondary to alcoholism ? Secondary to congestive heart failure Kidney failure Pneumonia Assessment/Plan Monitoring Supportive treatment ICU care Stabilize vitals Respiratory support/vent management Oxygen Bicarb IV drip IV fluids IV antibiotics Thiamine supplementation Cardiology evaluation Pulmonology evaluation More recommendation per clinical course This medical document was created using an electronic medical record system with kSARIA dictation system. Although this document has been carefully reviewed, there may still be some phonetic and typographical errors. These areas are purely typographical due to imperfections of the software programs, and do not reflect any compromise in the patient's medical care Prognosis Guarded Plan discussed with: Other Critical Care Time(min): 35 IZZY BOOKER MD May 15, 2025 10:12
--- NOTE | 2025-05-15 10:45 | ECG ---
[facility] Test Date: 2025-05-13 Test Time: 14:59:45 Pat Name: TIM NULL Department: [facility] ED Room: [address] [place] [address] A Gender: M Cotton Tier: jordon : 1950 Requested By: EMERGENCY EMERGENCY Order Number: [id number] Reading MD: Hardeep Tate Measurements Intervals [place] Rate: 88 P: 70 CA: 199 QRS: -26 QRSD: 87 T: 0 QT: 451 QTc: 546 Interpretive Statements Sinus rhythm Borderline left axis deviation Repol abnrm suggests ischemia, lateral leads Prolonged QT interval Electronically Signed On 05-15-2025 18:45:07 PDT by Hardeep Tate Please click the below link to view image of tracing.
[2025-05-15] MEDS: THIAMINE 100mg/ml INJ (200mg/2ml VIAL) IV ONE (12:27)
--- NOTE | 2025-05-15 12:43 | DVHPNRES ---
Progress Note Date Seen: May 15, 2025 Resident Creating Document: AGNIESZKA CHENG RESIDENT Medical Necessity Reason Pt with a Central, PICC or Fol: Yes The following are medically ne: PICC Line, Edwards Catheter Subjective Review of Systems 05/15/25 74-year-old male with end-stage HFrEF with ejection fraction of 10% on mechanical ventilation for acute hypoxic respiratory failure. Today the patient became tachycardic with brief sinus tachycardia on telemetry, no recorded tachyarrhythmias. Dobutamine drip discontinued due to tachycardia. Now maxed on norepinephrine, phenylephrine He is also on vasopressin with the addition of epinephrine infusion for persistent hypotension. Chest x-ray -improving right upper lobe pneumonia. The patient has pedal edema improved, the lungs are clear. (Limited by sedation/intubation. Data from chart review & nursing) * Cardiac: Prior chest pressure, now sedated. * Pulmonary: Intubated, pneumonia, hypoxemia., improving infiltrates on chest x- ray * Neuro: Sedated, unequal pupils prompted CT head no acute abnormality. * Other: No fevers/chills Objective vital signs Vital Sign Date Time Temp Pulse Resp B/P (MAP) Pulse Ox O2 Delivery O2 Flow Rate FiO2 05/15/25 12:15 98.4 94 20 113/48 (69) 95 209.1 05/15/25 11:27 40 05/15/25 10:00 Mechanical Ventilator+ 05/13/25 15:42 10 Total Intake and Output 05/14/25 05/14/25 05/15/25 15:00 23:00 07:00 Intake Total 824.218 ml 430.25 ml 1301.366 ml Output Total 300 ml 150 ml Balance 824.218 ml 130.25 ml 1151.366 ml medications Current Medications Medications Dose Ordered Sig/Mikki Route Start Time Stop Time Status Last Admin Dose Admin Diagnostic Test (Pha) 1 strip ACHS 05/13/25 22:00 05/15/25 11:30 1 STRIP Dextrose 50 ml UD PRN IV 05/13/25 21:45 05/14/25 03:09 50 ML Ondansetron HCl 4 mg Q4HP PRN IV 05/13/25 21:45 Midazolam HCl 50 ml @ 1 mls/hr Q24H IV 05/14/25 01:15 05/15/25 09:55 9 MLS/HR Lactulose 30 ml BID PO 05/14/25 10:00 05/15/25 09:34 30 ML Fentanyl Citrate 250 ml @ 2.5 mls/hr Q24H IV 05/14/25 10:15 05/14/25 15:48 2.5 MLS/HR Enoxaparin Sodium 30 mg DAILY SC 05/15/25 10:00 05/15/25 09:34 30 MG Cefepime HCl 50 ml @ 12.5 mls/hr Q12HR IV 05/14/25 22:00 05/15/25 09:34 12.5 MLS/HR Vancomycin HCl 0 ml @ 0 mls/hr UD IV 05/14/25 12:00 Enteral Nutritional Formula 1,000 ml 30ML/HR GT 05/14/25 16:30 Pantoprazole Sodium 40 mg DAILY IV 05/15/25 10:00 05/15/25 09:36 40 MG Sodium Chloride 10 ml QSHIFT@10,22 IV 05/14/25 22:00 05/15/25 09:36 10 ML Phenylephrine HCl 80 mg/Sodium Chloride 250 ml @ 7.5 mls/hr Q24H IV 05/15/25 03:00 05/15/25 12:26 33.75 MLS/HR Vasopressin 20 units/Sodium Chloride 100 ml @ 9 mls/hr Q11H7M IV 05/15/25 08:00 05/15/25 08:55 9 MLS/HR Dobutamine HCl/ Dextrose 250 ml @ 23.73 mls/ hr [id number] IV 05/15/25 08:45 05/15/25 09:32 11.865 MLS/HR Norepinephrine Bitartrate 32 mg/ Sodium Chloride 250 ml @ 0.938 mls/ hr Q24H IV 05/15/25 09:00 Thiamine HCl 100 mg DAILY IV 05/16/25 10:00 Examination * General: Intubated, sedated. * CV: Tachycardic, JVD, S3 gallop, no acute murmur. * Lungs: Bilateral crackles, ventilated breath sounds. Improved aeration. * Abdomen: Mild distension, possible ascites. * Extremities: Bilateral edema. * Neuro: Pupils unequal earlier, CT head negative; sedated on Versed. * Skin: Warm, no mottling laboratory and microbiology Laboratory Tests 05/15/25 09:30 05/15/25 04:21 Test 05/15/25 04:21 Range/Units Serum Glucose 121 H 74-106 mg/dL Microbiology Date/Time Source Procedure Growth Status 05/14/25 02:46 Nose MRSA Screen - Final Complete 05/13/25 17:25 Blood Blood Culture - Preliminary NO GROWTH AFTER 24 HOURS OF INCUBATION. Resulted Problem List/Assessment/Plan Problem List/Assessment/Plan Assessment 1. 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 * SCAI Shock Stage CD (classic/deteriorating cardiogenic shock). * Killip IV (cardiogenic shock). * Acute ischemic vs progressive dilated cardiomyopathy. 2. Cardiogenic shock requiring pressors (dopamine + norepinephrine). 3. Acute hypoxemic respiratory failure (intubated, FiO2 80%, PEEP 7) due to pneumonia + CHF. 4. Right-sided pneumonia , sepsis physiology with lactic acidosis. 5. SAPNA (KDIGO stage 12) from hypoperfusion, sepsis, diuresis. 6. 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 Plan/Recommendation Plan Cardiovascular: * Continue norepinephrine as primary vasopressor (ACC/AHA + Surviving Sepsis). Dopamine was discontinued today. Dobutamine was started today and discontinue later today due to persistent tachycardia. * continue vasopressin, phenylephrine, epinephrine titrate to keep MAP more than equal to 65. * strict I/O, daily weights, fluid restriction <1.5 L/day. Start Lasix if patient is volume overloaded. * Hold beta-blockers & spironolactone until hemodynamically stable and off pressers * Evaluate candidacy for MCS (IABP/Impella/LVAD) prognosis limited by cirrhosis and cancer. Hepatic: * Continue lactulose BID, monitor ammonia. * Trend LFTs, coags. Prophylaxis: * DVT: Enoxaparin. * GI: IV PPI daily. * ICU bundle: head elevation, turning protocol, pressure sore prevention. Plan discussed with: Other (RN) Visit Coding Cardiology RES Date of Service: May 15, 2025 Billing Provider: GABY ART Sr., MD Cardiology Common Codes: 39317-[id number] CARE 30-74 MIN AGNIESZKA CHENG RESIDENT May 15, 2025 12:43
[2025-05-15] MEDS ORDERED: VANCOMYCIN 1.5GM/250ML 250 ML IV ONE (13:00)
[2025-05-15] MEDS ORDERED: DEXTROSE (50%) 50ML SYRG IV PRN ×2 (13:15→16:45)
[2025-05-15] MEDS: NOREPINEPHRINE BITARTRATE 32 MG in SODIUM CHL 0.9% 218 ML IV SCH (14:19)
[2025-05-15] MEDS: EPINEPHrine HCL 250 ML IV SCH (14:20)
[2025-05-15] MEDS: EPINEPHrine HCL 250 ML IV ONE (14:20)
--- NOTE | 2025-05-15 15:59 | DVHINCON2 ---
Date of service: May 15, 2025 Reason for Consultation SAPNA History of Present Illness 74 years old male with past medical history of Congestive heart failure with reduced ejection fraction EF of 10, chronic hypoxic respiratory failure on home O2 2 to 3 L, diabetes, Chronic kidney disease two, liver disease, hypertension, dyslipidemia presented with chief complaints of shortness breath patient was found to be hypoxic needing BiPAP and then eventually intubated he also found to have cough Currently seen and examined in ICU on multiple vasopressors being treated for shock with minimal urine output in the Edwards bag Son and [id number] bedside Past Medical History per hpi Allergies: Coded Allergies: NO KNOWN ALLERGIES (Unverified , 01/11/25) Home Meds Active Scripts Empagliflozin (Jardiance) 10 Mg Tab, 10 MG PO DAILY for 30 Days, #30 TAB [facility]25 Furosemide (Lasix) 40 Mg Tab, 40 MG PO DAILY for 30 Days, #30 TAB Prov:[facility] 01/29/25 Metoprolol Succinate (Metoprolol Succinate Er) 25 Mg Tab, 25 MG PO DAILY for 30 Days, #30 TAB Prov:[facility] 01/29/25 Spironolactone (Aldactone) 25 Mg Tab, 25 MG PO DAILY for 30 Days, #30 TAB Prov:[facility] 01/29/25 Sacubitril-Valsartan (Entresto 24-26 mg) 1 Tab Tab, 1 TAB PO BID for 30 Days, #60 TAB Prov:[facility] 01/29/25 Ergocalciferol (VITAMIN D 24972 UNIT) 50,[address] [place], [address] UNIT PO Q7D for 60 Days, #8 CAP [facility] 01/29/25 Docusate Sodium (Docusate Sodium) 100 Mg Cap, 100 MG PO BIDPRN PRN for 30 Days, #60 CAP Prov:[facility] 01/29/25 Atorvastatin Calcium (ATORVASTATIN CALCIUM) 20 Mg Tab, 40 MG PO HS for 30 Days, #30 TAB [facility] 01/29/25 Aspirin (Aspirin Low Dose) 81 Mg Tab, 81 MG PO DAILY for 30 Days, #30 TAB Prov:[facility] 01/29/25 Ondansetron Odt 4MG Tab (ZOFRAN PO) 4 Mg Tb, 4 MG PO QID PRN, #30 TAB ODT TAB-DISSOLVE IN MOUTH, THEN SWALLOW Prov:WILFRED CALL MD 01/14/25 Tramadol HCl (Tramadol HCl) 50 Mg Tab, 50 MG PO QID PRN, #40 TAB Prov:WILFRED CALL MD 01/14/25 Current Medications Current Medications Medications (Trade) Dose Ordered Sig/Mikki Route PRN Reason Start Time Stop Time Status Last Admin Enoxaparin Sodium (Lovenox) 30 mg DAILY SC 05/15/25 10:00 05/15/25 09:34 Cefepime HCl 50 ml @ 12.5 mls/hr Q12HR IV 05/14/25 22:00 05/15/25 09:34 Enteral Nutritional Formula (Jevity 1.2 Kofi/ Fiber) 1,000 ml 30ML/HR GT 05/14/25 16:30 Pantoprazole Sodium (Protonix) 40 mg DAILY IV 05/15/25 10:00 05/15/25 09:36 Sodium Chloride (Saline Lock Ns) 10 ml QSHIFT@10,22 IV 05/14/25 22:00 05/15/25 09:36 Phenylephrine HCl 80 mg/Sodium Chloride 250 ml @ 7.5 mls/hr Q24H IV 05/15/25 03:00 05/15/25 12:26 Vasopressin 20 units/Sodium Chloride 100 ml @ 9 mls/hr Q11H7M IV 05/15/25 08:00 05/15/25 08:55 Dobutamine HCl/ Dextrose 250 ml @ 23.73 mls/ hr [id number] IV 05/15/25 08:45 05/15/25 09:32 Norepinephrine Bitartrate 32 mg/ Sodium Chloride 250 ml @ 0.938 mls/ hr Q24H IV 05/15/25 09:00 05/15/25 14:19 Thiamine HCl 100 mg DAILY IV 05/16/25 10:00 Diagnostic Test (Pha) (Accu-Chek Comfort Curve T) 1 strip ACHS 05/15/25 17:00 Insulin Human Regular (InsuLIN R) ACHS SC 05/15/25 17:00 Dextrose 50 ml UD PRN IV Blood Sugar LESS THAN 60 05/15/25 13:15 Epinephrine HCl 250 ml @ 7.5 mls/hr Q24H IV 05/15/25 13:45 05/15/25 14:20 Bumetanide (Bumex Injection) 2.5 mg BIDD IV 05/15/25 18:00 UNV Family History: Hypertension G8 MOTHER Ischemic heart disease G8 MOTHER G8 FATHER Review of Systems Patient intubated H&P Exam Vital Signs/I&O Vital Sign Date Time Temp Pulse Resp B/P (MAP) Pulse Ox O2 Delivery O2 Flow Rate FiO2 05/15/25 15:08 97/68 05/15/25 14:03 93 20 94 40 05/15/25 12:15 98.4 209.1 05/15/25 10:00 Mechanical Ventilator+ 05/13/25 15:42 10 Intake and Output 0 05/14/25 05/15/25 19:00 07:00 Intake Total 1013.468 ml 1542.366 ml Output Total 300 ml 150 ml Balance 713.468 ml 1392.366 ml Intake Oral 0 ml IV Total 1013.468 ml 1182.366 ml Tube Feeding 360 ml Output Urine Total 300 ml 150 ml Stool Total 0 ml Physical Exam General intubated and sedated HEENT-normocephalic, no icterus, no pallor, neck supple Respiratory-fair air entry bilateral, no rhonchi, no wheeze [id number] heard, Abdominal-soft, nontender, nondistended Musculoskeletal-no pedal edema, no calf tenderness Genitourinary-deferred Labs/Diagnostic Data Labs/Diagnostic Data Laboratory Tests Test 05/15/25 11:32 05/15/25 09:30 05/15/25 06:40 05/15/25 06:37 Range/Units POC Glucose 161 H 141 H 70-106 mg/dl White Blood Count 21.6 #H 4.4-10.8 10^3/uL Red Blood Count 7.70 H 4.5-5.90 10^6/uL Hemoglobin 16.3 # 13.5-17.5 g/dL Hematocrit 52.1 # 41.0-53.0 % Mean Corpuscular Volume 67.7 L 80.0-100.0 fL Mean Corpuscular Hemoglobin 21.2 L 28.0-32.0 pg Mean Corpuscular Hemoglobin Concent 31.3 L 32.0-36.0 g/dL Red Cell Distribution Width 19.4 H 11.8-14.3 % Platelet Count 191 140-450 10^3/uL Mean Platelet Volume 8.6 6.9-10.8 fL Neutrophils (%) (Auto) 91.9 H 37.0-80.0 % Lymphocytes (%) (Auto) 3.1 L 10.0-50.0 % Monocytes (%) (Auto) 4.6 0.0-12.0 % Eosinophils (%) (Auto) 0.1 0.0-7.0 % Basophils (%) (Auto) 0.3 0.0-2.0 % Neutrophils # (Auto) 19.8 H 1.6-8.6 10 ^3/uL Lymphocytes # (Auto) 0.7 0.4-5.4 10 ^3/uL Monocytes # (Auto) 1.0 0-1.3 10 ^3/uL Eosinophils # (Auto) 0 0-0.8 10 ^3/uL Basophils # (Auto) 0.1 0-0.2 10 ^3/uL Nucleated Red Blood Cells 0.2 % Blood Gas Specimen Type Arterial Blood Gas Sample Site Left brachial Blood Gas Patient Temperature 37.0 Arterial Blood Date Drawn [id number] Arterial Blood pH 7.334 L 7.350-7.450 Arterial Blood Partial Pressure CO2 42.9 35.0-48.0 mmHg Arterial Blood Partial Pressure O2 78.8 L 83.0-108.0 mmHg Arterial Blood HCO3 22.3 21.0-28.0 mmol/L Arterial Blood Oxygen Saturation 94.1 94.0-98.0 % Arterial Blood Base Excess -3.5 L -2.0-3.0 mmol/L Arterial Blood Oxyhemoglobin 93.2 L 94.0-98.0 % Arterial Blood Carboxyhemoglobin 0.8 0.5-1.5 % Arterial Blood Methemoglobin 0.2 0.0-1.5 % Cabrera Test Modified Blood Gas Total Hemoglobin 15.40 13.5-17.5 g/dL Blood Gas Set Respiration Rate 20.0 Blood Gas Modality Vent - ac FiO2 % 40.0 Blood Gas Tidal Volume 500.0 Blood Gas PEEP or CPAP 7.0 Test 05/15/25 06:30 05/15/25 04:21 05/14/25 21:47 05/14/25 18:40 Range/Units White Blood Count 15.4 #H 4.4-10.8 10^3/uL Red Blood Count 6.46 H 4.5-5.90 10^6/uL Hemoglobin 13.9 # 13.5-17.5 g/dL Hematocrit 43.3 # 41.0-53.0 % Mean Corpuscular Volume 67.0 L 80.0-100.0 fL Mean Corpuscular Hemoglobin 21.5 L 28.0-32.0 pg Mean Corpuscular Hemoglobin Concent 32.1 32.0-36.0 g/dL Red Cell Distribution Width 19.0 H 11.8-14.3 % Platelet Count 171 # 140-450 10^3/uL Mean Platelet Volume 8.6 6.9-10.8 fL Neutrophils (%) (Auto) 37.0-80.0 % Lymphocytes (%) (Auto) 10.0-50.0 % Monocytes (%) (Auto) 0.0-12.0 % Basophils (%) (Auto) 0.0-2.0 % Neutrophils # (Auto) 1.6-8.6 10 ^3/uL Lymphocytes # (Auto) 0.4-5.4 10 ^3/uL Monocytes # (Auto) 0-1.3 10 ^3/uL Differential Total Cells Counted 100.0 100 Neutrophils % (Manual) 67 37.0-80.0 Band Neutrophils % (Manual) 23 Lymphocytes % (Manual) 4 L 10.0-50.0 Monocytes % (Manual) 4 0-12 Eosinophils % (Manual) 0 0-7 Basophils % (Manual) 0 0.0-2.0 Metamyelocytes % (manual) 0 Myelocytes % (Manual) 1 Promyelocytes % (Manual) 0 Blast Cells % (Manual) 1 Reactive Lymphocytes 0 Platelet Estimate Adequate Hypochromasia (manual) Moderate Microcytosis Marked Sodium Level 142 136-145 mmol/L Potassium Level 5.0 3.5-5.1 mmol/L Chloride Level 107 98-107 mmol/L Carbon Dioxide Level 23 20-31 mmol/L Anion Gap 12 5-15 Blood Urea Nitrogen 43 #H 9-23 mg/dL Creatinine 2.02 H 0.700-1.30 mg/dL Glomerular Filtration Rate Calc 34 >90 mL/min BUN/Creatinine Ratio 21.3 H 10.0-20.0 Serum Glucose 121 H 74-106 mg/dL Calcium Level 7.8 L 8.7-10.4 mg/dL Magnesium Level 2.0 1.6-2.6 mg/dL Total Bilirubin 1.9 H 0.2-1.0 mg/dL Aspartate Amino Transferase (AST) 170 H 13-40 U/L Alanine Aminotransferase (ALT) 95 H 7-40 U/L Alkaline Phosphatase 158 H 46-116 U/L Ammonia < 10 L 11-32 umol/L Total Protein 5.8 5.7-8.2 g/dL Albumin 2.8 L 3.2-4.8 g/dL Random Vancomycin Level 12.3 H 5-10 ug/mL POC Glucose 116 H 70-106 mg/dl Tumor Marker Alpha Fetoprotein <1.8 0.0-8.4 ng/mL Test 05/14/25 17:08 05/14/25 12:37 05/14/25 11:27 05/14/25 08:27 Range/Units POC Glucose 121 H 129 H 70-106 mg/dl Blood Gas Specimen Type Arterial Blood Gas Sample Site Right radial Blood Gas Patient Temperature 37.0 Arterial Blood Date Drawn [id number] Arterial Blood pH 7.409 7.350-7.450 Arterial Blood Partial Pressure CO2 37.0 35.0-48.0 mmHg Arterial Blood Partial Pressure O2 73.2 L 83.0-108.0 mmHg Arterial Blood HCO3 22.9 21.0-28.0 mmol/L Arterial Blood Oxygen Saturation 94.3 94.0-98.0 % Arterial Blood Base Excess -1.4 -2.0-3.0 mmol/L Arterial Blood Oxyhemoglobin 93.8 L 94.0-98.0 % Arterial Blood Carboxyhemoglobin 0.1 L 0.5-1.5 % Arterial Blood Methemoglobin 0.4 0.0-1.5 % Cabrera Test N/a Blood Gas Total Hemoglobin 12.50 L 13.5-17.5 g/dL Blood Gas Set Respiration Rate 20.0 Blood Gas Modality Vent - ac FiO2 % 65.0 Blood Gas Tidal Volume 500.0 Blood Gas PEEP or CPAP 7.0 Lactic Acid Level 4.0 *H 0.4-2.0 mmol/L Test 05/14/25 08:10 05/14/25 05:10 05/14/25 04:00 05/14/25 03:51 Range/Units POC Glucose 106 116 H 136 H 70-106 mg/dl Blood Gas Specimen Type Arterial Blood Gas Sample Site Right radial Blood Gas Patient Temperature 37.0 Arterial Blood Date Drawn [id number] Arterial Blood pH 7.218 *L 7.350-7.450 Arterial Blood Partial Pressure CO2 45.7 35.0-48.0 mmHg Arterial Blood Partial Pressure O2 195.2 H 83.0-108.0 mmHg Arterial Blood HCO3 18.2 L 21.0-28.0 mmol/L Arterial Blood Oxygen Saturation 99.3 H 94.0-98.0 % Arterial Blood Base Excess -9.2 L -2.0-3.0 mmol/L Arterial Blood Oxyhemoglobin 98.9 H 94.0-98.0 % Arterial Blood Carboxyhemoglobin 0.3 L 0.5-1.5 % Arterial Blood Methemoglobin 0.1 0.0-1.5 % Cabrera Test Modified Blood Gas Total Hemoglobin 11.60 L 13.5-17.5 g/dL Blood Gas Set Respiration Rate 20.0 Blood Gas Modality Vent - ac Blood Gas Spontaneous Rate 20 FiO2 % 100.0 Blood Gas Tidal Volume 500.0 Blood Gas Spontaneous Tidal Volume 514 Blood Gas PEEP or CPAP 7.0 Bl Gas Inspiratory/Expiratory Ratio 1:2.3 Blood Gas Critical Value Read Back Yes Blood Gas Notified Whom margarito Stone Blood Gas Notified Time [id number] Blood Gas Notified By mayte Padilla 05/14/25 03:38 05/14/25 03:07 05/14/25 03:06 05/14/25 00:20 Range/Units White Blood Count 3.4 L 4.4-10.8 10^3/uL Red Blood Count 5.15 4.5-5.90 10^6/uL Hemoglobin 11.1 L 13.5-17.5 g/dL Hematocrit 35.8 L 41.0-53.0 % Mean Corpuscular Volume 69.6 L 80.0-100.0 fL Mean Corpuscular Hemoglobin 21.6 L 28.0-32.0 pg Mean Corpuscular Hemoglobin Concent 31.0 L 32.0-36.0 g/dL Red Cell Distribution Width 19.3 H 11.8-14.3 % Platelet Count 107 L 140-450 10^3/uL Mean Platelet Volume 8.3 6.9-10.8 fL Neutrophils (%) (Auto) 90.0 H 37.0-80.0 % Lymphocytes (%) (Auto) 7.5 L 10.0-50.0 % Monocytes (%) (Auto) 2.3 0.0-12.0 % Eosinophils (%) (Auto) 0.1 0.0-7.0 % Basophils (%) (Auto) 0.1 0.0-2.0 % Neutrophils # (Auto) 3.0 1.6-8.6 10 ^3/uL Lymphocytes # (Auto) 0.3 L 0.4-5.4 10 ^3/uL Monocytes # (Auto) 0.1 0-1.3 10 ^3/uL Eosinophils # (Auto) 0 0-0.8 10 ^3/uL Basophils # (Auto) 0 0-0.2 10 ^3/uL Nucleated Red Blood Cells 0.3 % Prothrombin Time 17.2 H 9.3-11.8 sec Prothrombin Time INR 1.71 H 0.9-1.15 Activated Partial Thromboplast Time 35.8 H 24.5-34.5 SEC Sodium Level 143 136-145 mmol/L Potassium Level 3.9 3.5-5.1 mmol/L Chloride Level 106 98-107 mmol/L Carbon Dioxide Level 17 L 20-31 mmol/L Anion Gap 20 H 5-15 Blood Urea Nitrogen 21 9-23 mg/dL Creatinine 1.69 H 0.700-1.30 mg/dL Glomerular Filtration Rate Calc 42 >90 mL/min BUN/Creatinine Ratio 12.4 10.0-20.0 Serum Glucose 148 H 74-106 mg/dL Lactic Acid Level 9.8 *H 0.4-2.0 mmol/L Calcium Level 8.4 L 8.7-10.4 mg/dL Phosphorus Level 6.1 H 2.4-5.1 mg/dL Magnesium Level 1.9 1.6-2.6 mg/dL Total Bilirubin 2.5 H 0.2-1.0 mg/dL Aspartate Amino Transferase (AST) 84 H 13-40 U/L Alanine Aminotransferase (ALT) 52 H 7-40 U/L Alkaline Phosphatase 209 H 46-116 U/L Ammonia 54 H 11-32 umol/L Total Protein 7.6 5.7-8.2 g/dL Albumin 3.6 3.2-4.8 g/dL Vitamin B12 Level 776 211-911 pg/mL Folic Acid 9.29 >5.38 ng/mL Thyroid Stimulating Hormone (TSH) 4.16 0.55-4.78 uIU/mL Free Thyroxine (T4) Calculated 0.99 0.89-1.76 ng/dL POC Glucose 40 *L 44 *L 70-106 mg/dl Blood Gas Specimen Type Arterial Blood Gas Sample Site Right radial Blood Gas Patient Temperature 37.0 Arterial Blood Date Drawn [id number] Arterial Blood pH 7.105 *L 7.350-7.450 Arterial Blood Partial Pressure CO2 26.6 L 35.0-48.0 mmHg Arterial Blood Partial Pressure O2 57.3 L 83.0-108.0 mmHg Arterial Blood HCO3 8.2 L 21.0-28.0 mmol/L Arterial Blood Oxygen Saturation 76.9 *L 94.0-98.0 % Arterial Blood Base Excess -19.9 L -2.0-3.0 mmol/L Arterial Blood Oxyhemoglobin 75.9 L 94.0-98.0 % Arterial Blood Carboxyhemoglobin 0.9 0.5-1.5 % Arterial Blood Methemoglobin 0.4 0.0-1.5 % Cabrera Test Modified Blood Gas Total Hemoglobin 11.80 L 13.5-17.5 g/dL Blood Gas Set Respiration Rate 12.0 Blood Gas Modality Mask - bipap Blood Gas Spontaneous Rate 32 FiO2 % 100.0 Blood Gas Spontaneous Tidal Volume 562 Blood Gas EPAP 5 Blood Gas IPAP 12 Bl Gas Inspiratory/Expiratory Ratio 1:2 Blood Gas Critical Value Read Back Yes Blood Gas Notified Whom roshan Peace karla Blood Gas Notified Time [id number] Blood Gas Notified By mayte Padilla garcia Test 05/13/25 23:30 05/13/25 19:33 05/13/25 17:19 05/13/25 15:31 Range/Units Urine Color [place] H Yellow Urine Clarity Turbid H Clear Urine pH 5.5 5.0-9.0 Urine Specific [place] 1.023 1.001-1.035 Urine Protein 2+ H Negative Urine Ketones Negative Negative Urine Blood Trace H Negative /uL Urine Nitrite Negative Negative Urine Bilirubin 1+ Negative Urine Urobilinogen 6 Negative mg/dL Urine Leukocyte Esterase Negative Negative /uL Urine RBC 2 0 - 3 /hpf Urine Microscopic WBC 7 H 0-3 /HPF Urine Squamous Epithelial Cells Few <5 /hpf Urine Bacteria None seen None Seen /hpf Urine Hyaline Casts Few 0 - 2 /lpf Urine Mucus Few None Seen Urine Glucose Trace Normal mg/dL Lactic Acid Level 8.3 *H 6.6 *H 0.4-2.0 mmol/L Troponin I High Sensitivity 87 *H 82 *H 75 *H </=54 ng/L White Blood Count 3.4 L 4.4-10.8 10^3/uL Red Blood Count 5.02 4.5-5.90 10^6/uL Hemoglobin 10.6 L 13.5-17.5 g/dL Hematocrit 34.6 L 41.0-53.0 % Mean Corpuscular Volume 69.0 L 80.0-100.0 fL Mean Corpuscular Hemoglobin 21.2 L 28.0-32.0 pg Mean Corpuscular Hemoglobin Concent 30.7 L 32.0-36.0 g/dL Red Cell Distribution Width 18.6 H 11.8-14.3 % Platelet Count 119 L 140-450 10^3/uL Mean Platelet Volume 8.5 6.9-10.8 fL Neutrophils (%) (Auto) 74.6 37.0-80.0 % Lymphocytes (%) (Auto) 16.1 10.0-50.0 % Monocytes (%) (Auto) 9.1 0.0-12.0 % Eosinophils (%) (Auto) 0.0 0.0-7.0 % Basophils (%) (Auto) 0.2 0.0-2.0 % Neutrophils # (Auto) 2.6 1.6-8.6 10 ^3/uL Lymphocytes # (Auto) 0.6 0.4-5.4 10 ^3/uL Monocytes # (Auto) 0.3 0-1.3 10 ^3/uL Eosinophils # (Auto) 0 0-0.8 10 ^3/uL Basophils # (Auto) 0 0-0.2 10 ^3/uL Nucleated Red Blood Cells 0.2 % Sodium Level 141 136-145 mmol/L Potassium Level 3.8 3.5-5.1 mmol/L Chloride Level 107 98-107 mmol/L Carbon Dioxide Level 19 #L 20-31 mmol/L Anion Gap 15 5-15 Blood Urea Nitrogen 21 9-23 mg/dL Creatinine 1.28 0.700-1.30 mg/dL Glomerular Filtration Rate Calc 59 >90 mL/min BUN/Creatinine Ratio 16.4 10.0-20.0 Serum Glucose 87 74-106 mg/dL Calcium Level 8.8 8.7-10.4 mg/dL B-Type Natriuretic Peptide > 5000.00 0-100 pg/mL Microbiology Date/Time Source Procedure Growth Status 05/14/25 02:46 Nose MRSA Screen - Final Complete Assessment Acute kidney injury likely acute tubular necrosis in the setting of shock Ventilator-dependent hypoxic respiratory failure Acute on chronic congestive heart failure systolic exacerbation Cardiogenic shock Recommendations Bumex IV b.i.d. Inotropes and vasopressors--defer to ICU Strict Is&Os O charting Currently remains oliguric monitor renal function closely Reviewed vital signs, lab work, imaging studies, medications, microbiology, other physician recommendations Total time spent 80 minutes More than 50% of the time spent providing direct [id number] care . Thank you for allowing me to participate in the care of your patient. Plan discussed with: LIZ Schaeffer MD May 15, 2025 15:59
--- NOTE | 2025-05-15 16:43 | DVHPNRES ---
Progress Note Date Seen: May 15, 2025 Resident Creating Document: DUARTE SPIVEY RESIDENT Medical Necessity Reason Pt with a Central, PICC or Fol: Yes The following are medically ne: PICC Line, Edwards Catheter Subjective Review of Systems This is a 74-year-old male with past medical history of CHF on home O2 2 to 3L, diabetes mellitus, liver disease, hypertension, and hyperlipidemia who presented to [facility] ED with complaint of shortness of breaths. Patient reports that he has been experiencing worsening shortness of breaths with associated leg swelling and chest pressure since this morning. Patient was on 87% on 2L despite giving 2 DuoNeb treatments en route, placing him on a non- rebreather mask upon arrival. in the ED patient was hypoxic, increased work of breathing, desaturating on BiPAP and subsequently intubated. Patient was seen and examined in the ICU. he is on mechanical ventilation with FiO2 40%, tidal volume 500 mL, peep 7, respiratory rate 20. Over night BP was unstable, maxed on norepinephrine, pneylephrine, started vasopressin , dobutamine which stable the BP a bit but later duscontinued dobutamine due to afib with RVR. Started epinephrine as 4th pressor. WBC count going up and cultures were unremarkable, started metronidazole for anaerobic coverage. Objective vital signs Vital Sign Date Time Temp Pulse Resp B/P (MAP) Pulse Ox O2 Delivery O2 Flow Rate FiO2 05/15/25 15:56 87 20 92/63 (73) 93 40 05/15/25 12:15 98.4 209.1 05/15/25 10:00 Mechanical Ventilator+ 05/13/25 15:42 10 Total Intake and Output 05/14/25 05/14/25 05/15/25 15:00 23:00 07:00 Intake Total 824.218 ml 430.25 ml 1301.366 ml Output Total 300 ml 150 ml Balance 824.218 ml 130.25 ml 1151.366 ml medications Current Medications Medications Dose Ordered Sig/Mikki Route Start Time Stop Time Status Last Admin Dose Admin Midazolam HCl 50 ml @ 1 mls/hr Q24H IV 05/14/25 01:15 05/15/25 15:08 9 MLS/HR Lactulose 30 ml BID PO 05/14/25 10:00 05/15/25 09:34 30 ML Fentanyl Citrate 250 ml @ 2.5 mls/hr Q24H IV 05/14/25 10:15 05/14/25 15:48 2.5 MLS/HR Enoxaparin Sodium 30 mg DAILY SC 05/15/25 10:00 05/15/25 09:34 30 MG Cefepime HCl 50 ml @ 12.5 mls/hr Q12HR IV 05/14/25 22:00 05/15/25 09:34 12.5 MLS/HR Vancomycin HCl 0 ml @ 0 mls/hr UD IV 05/14/25 12:00 Enteral Nutritional Formula 1,000 ml 30ML/HR GT 05/14/25 16:30 Pantoprazole Sodium 40 mg DAILY IV 05/15/25 10:00 05/15/25 09:36 40 MG Sodium Chloride 10 ml QSHIFT@10,22 IV 05/14/25 22:00 05/15/25 09:36 10 ML Phenylephrine HCl 80 mg/Sodium Chloride 250 ml @ 7.5 mls/hr Q24H IV 05/15/25 03:00 05/15/25 12:26 33.75 MLS/HR Vasopressin 20 units/Sodium Chloride 100 ml @ 9 mls/hr Q11H7M IV 05/15/25 08:00 05/15/25 08:55 9 MLS/HR Norepinephrine Bitartrate 32 mg/ Sodium Chloride 250 ml @ 0.938 mls/ hr Q24H IV 05/15/25 09:00 05/15/25 14:19 14.063 MLS/HR Thiamine HCl 100 mg DAILY IV 05/16/25 10:00 Diagnostic Test (Pha) 1 strip ACHS 05/15/25 17:00 Dextrose 50 ml UD PRN IV 05/15/25 13:15 Epinephrine HCl 250 ml @ 7.5 mls/hr Q24H IV 05/15/25 13:45 05/15/25 14:20 7.5 MLS/HR Bumetanide 2.5 mg BIDD IV 05/15/25 18:00 UNV Metronidazole 100 ml @ 100 mls/hr Q8HR IV 05/15/25 22:00 UNV Hydrocortisone Sodium Succinate 50 mg Q6HR IV 05/15/25 18:00 UNV Diagnostic Test (Pha) 1 strip Q6HR 05/15/25 18:00 UNV Insulin Human Regular Q6HR SC 05/15/25 18:00 UNV Dextrose 50 ml UD PRN IV 05/15/25 16:45 UNV Examination Examination General: RASS -3, afebrile, mucosae are moist Cardiovascular: Normal S1 and S2. No murmurs, gallops or rubs Respiratory: Mechanically assisted ventilation, equal bilateral airway entree. Rales and crackles in the right side Abdomen: Soft, nontender, no organomegaly, normal bowel sounds MSK/skin: Mobilization of limbs cannot be evaluated. Skin is dry and warm. Neurological: Orientation cannot be assessed. No apparent motor no sensitive deficits. Pupils are unequal, reactive left pupil, status post prosthesis of right eye laboratory and microbiology Laboratory Tests 05/15/25 09:30 05/15/25 04:21 Test 05/15/25 04:21 Range/Units Serum Glucose 121 H 74-106 mg/dL Microbiology Date/Time Source Procedure Growth Status 05/14/25 08:24 Voided Urine Urine Culture - Preliminary Resulted 05/14/25 02:46 Nose MRSA Screen - Final Complete 05/14/25 01:18 Sputum Endotracheal Wash Gram Stain - Final Resulted 05/14/25 01:18 Sputum Endotracheal Wash Respiratory Culture - Preliminary Resulted 05/13/25 17:25 Blood Blood Culture - Preliminary NO GROWTH AFTER 24 HOURS OF INCUBATION. Resulted Labs and/or images reviewed: Labs reviewed by me, Image(s) reviewed by me Problem List/Assessment/Plan Problem List/Assessment/Plan Assessment and plan: NEURO: Acute Metabolic encephalopathy likely secondary to acute hypoxic respiratory failure, status post intubation unequal pupil likely due to right eye prosthesis RASS score: -3 CARDIOVASCULAR: Acute on chronic decompensated systolic heart failure cardiogenic shock/ septic shock secondary to above NSTEMI type 2 likely secondary to above -chest x-ray demonstrated right-sided pneumonia with pulmonary vascular congestion -BNP> 5000 and trops were mildly elevated and flat - Echo on 02/10 demonstrated EF 10% with end-stage dilated heart failure, RVSP 38 mm Hg - patient is on 4 pressors, maxed on norepinephrine and phenylephrine - Hold GDM T because of the pressor support in shock PULMONARY: Acute hypoxic respiratory failure secondary to exacerbation of CHF/ pneumonia right-sided Gram-positive versus Gram-negative community acquired pneumonia possible aspiration pneumonia Rule out lung malignancy - chest x-ray demonstrated right-sided pneumonia with pulmonary vascular congestion - pending respiratory culture and MRSA negative - IV vancomycin as per pharmacy and IV cefepime 1 g q.12 hours and IV metronidazole q8hr. GASTROINTESTINAL: chronic decompensated alcoholic liver cirrhosis History of hepatitis-C positive possible hepatocellular carcinoma hyperbilirubinemia with transaminitis likely secondary to cirrhosis coagulopathy, pancytopenia and hyperammonemia likely secondary to cirrhosis - Ordered CT chest abdomen pelvis without contrast and alpha-fetoprotein. - Lactulose 30 mL b.i.d. GENITOURINARY: Acute kidney injury likely secondary to shock - Nephrology on board and started bumex 2.5 mg IV bid. - strict I&O - monitor BMP ENDOCRINE: Hypoglycemia - started tube feeding with Jevity - monitor blood sugar closely METABOLIC: Moderate protein calorie malnutrition HEME: Chronic microcytic hypochromic anemia likely due to anemia of chronic disease Thrombocytopenia likely due to cirrhosis INFECTIOUS DISEASE: Right-sided Gram-positive/ Gram-negative community acquired pneumonia possible aspiration pneumonia - chest x-ray demonstrated right-sided pneumonia with pulmonary vascular congestion - Preliminary blood cultures were unremarkable and MRSA negative - IV vancomycin as per pharmacy and IV cefepime 1 g q.12 hours and IV metronidazole q8hr. DIET: Jevity DVT prophylax:Lovenox GI prophylaxis:Protonix Bowel regimen:Lactulose Code status: modified DNR, no chest compression LINES/DRAINS/ACCESS: Rt upper arm PICC line on 05/14 ETT: Intubated on 05/13/25 IV access: Rt upper arm PICC line on 05/14, rt femoral arterial line 05/15 Drips: Epinephrine, norepinephrine, Phenylephrine, vasopressin, fentanyl and Versed Edwards catheter: placed on 05/13/2025 DISPOSITION: ICU Patient's status discussed with son and [id number] Critical care time spent more than 81 minutes, including patient care, chart review, and updating the family. Excluding any procedures. Case discussed with Dr. Hopkins Plan discussed with: Other (RN) My Orders My Orders Orders - DUARTE SPIVEY RESIDENT Procedure Category Date Status Time Chest Portable XY 05/15/25 Resulted 04:00 Abg W/ Co-Ox RT 05/14/25 Logged 18:28 Abg W/ Co-Ox RT 05/15/25 Logged 05:15 Chst Ab Pel Wo Con-No CT 05/15/25 Logged Iv/Oral 08:00 Sodium Chl 0.9% PHA 05/15/25 In Process (So... W/Vasopressin 08:00 Sodium Chl 0.9% PHA 05/15/25 In Process (Ns... 09:00 Creatinine LAB 05/16/25 Verified 04:00 Vancomycin,Random LAB 05/16/25 Verified 04:00 Glucose Blood PHA 05/15/25 In Process (Accu-Chek Comfort 17:00 Dextrose 50% Syringe PHA 05/15/25 In Process 13:15 Epinephrine Hcl PHA 05/15/25 In Process 13:45 Hydrocortisone PHA 05/15/25 Logged Succinate Inj 18:00 Glucose Blood PHA 05/15/25 Logged (Accu-Chek Comfort 18:00 Insulin R (Human) PHA 05/15/25 Logged (Insulin R) 18:00 Dextrose 50% Syringe PHA 05/15/25 Logged 16:45 Abdomen Complete US 05/15/25 Logged Sonogram 16:37 Date of Service: May 15, 2025 Billing Provider: NOÉ HOPKINS MD Common Visit Codes: 89473-RAIPIMJY CARE 30-74 MIN, 46854-ITVICAOU CARE-EACH +30MIN DUARTE SPIVEY RESIDENT May 15, 2025 16:43 NOÉ HOPKINS MD May 16, 2025 12:50
[2025-05-15] MEDS ORDERED: InsuLIN REG 1unit/0.01ml Soln (100units/ml) SC SCH (17:00)
--- NOTE | 2025-05-15 17:52 | DVH ---
ULTRASOUND ABDOMEN: REASON FOR EXAM: Abdominal mass TECHNIQUE: Real-time sector scans in the transverse and longitudinal planes were obtained through e abdomen. FINDINGS: Evaluation is difficult as the patient is intubated and sitting up. The liver appears echogenic and nodular, consistent with cirrhosis. There is hepatopetal flow in the portal vein. There is no intrahepatic biliary ductal dilatation. The common bile duct measures 7 mm. No gallstones or sludge are identified. The gallbladder wall is thickened at 9 mm, similar to the prior study. Sonographic malave's sign could not be evaluated due to intubated patient status. The spleen is normal in size. The pancreas is obscured by bowel gas. The right kidney measures 9.8 cm. The left kidney measures 8.5 cm. There is no hydronephrosis or ne phrolithiasis. There is no evidence of focal renal mass. There is a 1.1 cm anechoic cyst at the supe rior pole of the right kidney with a thin septation. The visualized portions of the abdominal aorta demonstrate no evidence of aneurysmal dilatation. The visualized inferior vena cava is unremarkable. There are small bilateral pleural effusions. There is a small amount of ascites distributed throughou t the abdomen with the largest pocket in the left lower quadrant. IMPRESSION: Nodular liver consistent with cirrhosis. Small amount of ascites in the abdomen with the largest pock et in the left lower quadrant. Small bilateral pleural effusions. Similar appearance of thickened gallbladder wall. This finding is nonspecific.
[2025-05-15] MEDS: ACCU-CHEK COMFORT CURVE STRIP VI SCH ×2 (17:54→18:00)
[2025-05-15] MEDS: InsuLIN REG 1unit/0.01ml Soln (100units/ml) SC SCH (18:30)
--- NOTE | 2025-05-15 19:22 | DVHNC2 ---
Arterial Puncture Indication: Assess ventilatory status, Assess acid-base status Procedure: Sterile Preparation, Arterial Punct Obtained Location: Right Femoral Notes A time out was performed. My hands were washed immediately prior to the procedure. I wore a surgical cap, mask with protective eyewear, sterile gown and sterile gloves throughout the procedure. The right inguinal region was prepped using chlorhexidine scrub and draped in sterile fashion using a three quarter sheet drape and sterile towels. The femoral pulse was identified. Anesthesia was achieved using 1% lidocaine. Palpating the femoral pulse throughout the procedure, the introducer needle was inserted into the femoral artery. Arterial blood was withdrawn. The syringe was removed and a guidewire was advanced through the needle into the femoral artery. The needle was exchanged over the wire for an arterial catheter. The wire was removed and the catheter was secured to the skin using a suture. The patient tolerated the procedure without any hemodynamic compromise. At time of procedure completion, the catheter was connected to the jewelry drill operator and calibrated. Appropriate waveform and blood pressure tracing was observed. Estimated blood loss is _. Date of Service: May 15, 2025 Billing Provider: NOÉ HOPKINS MD Common Visit Codes: PROCEDURE ONLY Procedure Codes: 86008-[id number] LINE DUARTE SPIVEY RESIDENT May 15, 2025 19:22 NOÉ HOPKINS MD May 20, 2025 15:39
[2025-05-15] MEDS: BUMETANIDE 2.5mg/10ml (0.25 mg/ml) INJ IV SCH (20:22)
[2025-05-15] MEDS: HYDROCORTISONE SOD SUCC 100 MG/2ML INJ VIAL IV SCH (20:22)
[2025-05-15 21:27] LABS: Base Excess -8.8 mmol/L (-2.0-3.0)
[2025-05-15 22:00] LABS: Lactic Acid w/Reflex 2.9 mmol/L (0.4-2.0)
[2025-05-15 22:14] LABS: Sodium 141 mmol/L (136-145)
[2025-05-15 22:15] LABS: Anion Gap 13 (5-15)
[2025-05-15 22:18] LABS: Calcium 7.7 mg/dL (8.7-10.4); Carbon Dioxide 16 mmol/L (20-31); Chloride 112 mmol/L (98-107); Potassium 5.3 mmol/L (3.5-5.1)
[2025-05-15 22:20] LABS: BUN/Creatinine Ratio 12.4 (10.0-20.0); Blood Urea Nitrogen 33 mg/dL (9-23); Glucose 169 mg/dL (74-106)
[2025-05-15] MEDS: SODIUM BICARB 50mEq/50ml Vial 100 ML in SOD CHL 0.45% 1,000 ML IV ONE (22:45)
[2025-05-15] MEDS: SODIUM CHLORIDE 0.9% 500 ML IV ONE (23:10)
[2025-05-15] MEDS: SODIUM ZIRCONIUM CYCL 10 GM PAK GT ONE (23:14)
[2025-05-16] VITALS (105 sets, daily range): BP systolic 85–162; BP diastolic 47–81; PULSE 64–128; RESP 12–23; TEMP 97.7–98.6; O2SAT 95–100
[2025-05-16] MEDS: SODIUM BICARB 8.4% 50Meq/50ml SYR Vial IV ONE (00:13)
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
[2025-05-16 03:54] LABS: Hemoglobin 14.1 g/dL (13.5-17.5); Mean Corpuscular Hemoglobin 21.5 pg (28.0-32.0)
[2025-05-16 03:59] LABS: Hematocrit 43.8 % (41.0-53.0); Mean Corpuscular Volume 67.0 fL (80.0-100.0)
[2025-05-16 04:03] LABS: Anion Gap 14 (5-15); BUN/Creatinine Ratio 19.3 (10.0-20.0); Carbon Dioxide 21 mmol/L (20-31); Potassium 4.7 mmol/L (3.5-5.1); Sodium 144 mmol/L (136-145); Total Protein 6.1 g/dL (5.7-8.2)
[2025-05-16 04:17] LABS: Chloride 109 mmol/L (98-107); Glucose 180 mg/dL (74-106)
[2025-05-16 04:18] LABS: Alanine Aminotransferase 166 U/L (7-40); Albumin 2.9 g/dL (3.2-4.8); Alkaline Phosphatase 389 U/L (46-116); Bilirubin, Total 3.8 mg/dL (0.2-1.0); Blood Urea Nitrogen 52 mg/dL (9-23); Calcium 7.7 mg/dL (8.7-10.4)
[2025-05-16 04:39] LABS: Total Cells Counted 100.0 (100)
--- NOTE | 2025-05-16 05:42 | DVH ---
CHEST RADIOGRAPH Indication: RESP DISTRESS Technique: Single frontal view of the chest was obtained COMPARISON: XY CHEST PORTABLE on DOS: 05/15/25, XY CHEST XRAY 1 VIEW on DOS: 05/14/25, XY CHEST PORTABL E on DOS: 05/13/25, US CHEST ULTRASOUND on DOS: 05/02/25, XY CHEST XRAY 1 VIEW on DOS: 05/01/25 FINDINGS: Lines and Tubes: Endotracheal tube and enteric catheter and right PICC in satisfactory position Lungs: Congestion. Right lower lobe airspace disease. Pleura: No effusion. No pneumothorax. Cardiomediastinal contours: Unremarkable Bones: Unremarkable IMPRESSION: Lines and tubes in satisfactory position. No significant interval change.
[2025-05-16 06:41] LABS: Base Excess -5.5 mmol/L (-2.0-3.0)
[2025-05-16] MEDS: THIAMINE 100mg/ml INJ (200mg/2ml VIAL) IV SCH (09:42)
[2025-05-16] MEDS ORDERED: METOCLOPRAMIDE HCL 5MG/ml INJ 2ml VIAL IV PRN (10:00)
--- NOTE | 2025-05-16 10:50 | DVHPN2 ---
Progress Note - Dictate Date Seen: May 16, 2025 Medical Necessity Reason Pt with a Central, PICC or Fol: Yes The following are medically ne: PICC Line, Edwards Catheter Subjective Mr. Mayberry is a 74 years old right-handed gentleman with a history of hypertension, diabetes, dyslipidemia, congestive heart failure on home oxygen, liver disease, he was brought to the [facility] on 05/13/2026 with a chief complaint of sharp breath, in the hospital, the patient was found to have acute respiratory failure, combined metabolic respiratory acidosis, and was intubated in the emergency room. I have seen and examined the patient, I have talked to his nurse, he is intubated, responsive to strong painful stimuli, unstable blood pressure Fentanyl 50 mcg/hour, Versed 9 mg/hour, Levo 12 mg per hour, fentanyl 50 milligram/hour, Dobutamine 0 mcg/kg/min, neosyn 180 mcg, vasopressin 0.03 units/min Urinalysis, 05/13/2025: WBC: 7, urine leukocyte esterase: Negative ABG, 05/14/2025: Hypoxia, metabolic acidosis, 05/15/2025: Metabolic acidosis WBC/HB/PLT/MCV, 05/14/2025: 3.4/11.1/107/69.6, 05/15/25: 15.4/13.9/171/67 PT/INR/ABG, 05/14/2025: 12.2/1.71/35.8 BUN/CR, 05/14/2025: 21/1.69 GFR, 05/14/2025: 42 Lactic acid, 05/13/2025: 6.6, 8.3, 9.8 Glucose, 05/14/2025: 44, 40, 136, 116, 106 TBI/AST/ALT/AP, 05/14/2025: 2.5/84/52/209, : 149/170/95/158 Ammonia, 05/14/2025: 54 Vitamin B12, 01/24/2025: 941, 05/14/25: 776 Folic acid, 01/25/2025: 8.94, 05/14/25:9.29 TSH, 01/24/2025: 2.6, 05/14/2025: 4.19 Chest x-ray, 05/14/2025: 1. Adequately positioned endotracheal and enteric tubes new from prior exam. 2. Similar diffuse right and mild left basilar airspace disease. CT head, 05/14/2025: 1. No acute intracranial abnormality. 2. Right ocular lens prosthesis. 3. Mild periventricular and subcortical white matter disease likely related to sequelae of chronic microvascular ischemic changes although other etiologies are not excluded vital signs Vital Sign Date Time Temp Pulse Resp B/P (MAP) Pulse Ox O2 Delivery O2 Flow Rate FiO2 05/16/25 10:00 30 05/16/25 10:00 20 97 Mechanical Ventilator+ 05/16/25 10:00 81 05/16/25 09:41 123/62 (82) 05/16/25 09:00 98.4 209.1 Total Intake and Output 05/15/25 05/15/25 05/16/25 15:00 23:00 07:00 Intake Total 1028.345 ml 924.065 ml 2367.164 ml Output Total 75 ml 275 ml Balance 1028.345 ml 849.065 ml 2092.164 ml medications Current Medications Medications Dose Ordered Sig/Mikki Route Start Time Stop Time Status Last Admin Dose Admin Midazolam HCl 50 ml @ 1 mls/hr Q24H IV 05/14/25 01:15 05/16/25 07:00 9 MLS/HR Lactulose 30 ml BID PO 05/14/25 10:00 05/16/25 09:42 30 ML Fentanyl Citrate 250 ml @ 2.5 mls/hr Q24H IV 05/14/25 10:15 05/16/25 07:07 5 MLS/HR Enoxaparin Sodium 30 mg DAILY SC 05/15/25 10:00 05/16/25 09:42 30 MG Cefepime HCl 50 ml @ 12.5 mls/hr Q12HR IV 05/14/25 22:00 05/16/25 09:42 12.5 MLS/HR Vancomycin HCl 0 ml @ 0 mls/hr UD IV 05/14/25 12:00 Enteral Nutritional Formula 1,000 ml 30ML/HR GT 05/14/25 16:30 Pantoprazole Sodium 40 mg DAILY IV 05/15/25 10:00 05/16/25 09:41 40 MG Sodium Chloride 10 ml QSHIFT@10,22 IV 05/14/25 22:00 05/16/25 09:41 10 ML Phenylephrine HCl 80 mg/Sodium Chloride 250 ml @ 7.5 mls/hr Q24H IV 05/15/25 03:00 05/16/25 08:45 33.75 MLS/HR Vasopressin 20 units/Sodium Chloride 100 ml @ 9 mls/hr Q11H7M IV 05/15/25 08:00 05/16/25 05:40 9 MLS/HR Norepinephrine Bitartrate 32 mg/ Sodium Chloride 250 ml @ 0.938 mls/ hr Q24H IV 05/15/25 09:00 05/16/25 07:01 5.625 MLS/HR Thiamine HCl 100 mg DAILY IV 05/16/25 10:00 05/16/25 09:42 100 MG Dextrose 50 ml UD PRN IV 05/15/25 13:15 Cancel Epinephrine HCl 250 ml @ 7.5 mls/hr Q24H IV 05/15/25 13:45 05/15/25 14:20 7.5 MLS/HR Bumetanide 2.5 mg BIDD IV 05/15/25 18:00 05/16/25 06:13 2.5 MG Metronidazole 100 ml @ 100 mls/hr Q8HR IV 05/15/25 22:00 05/16/25 06:22 100 MLS/HR Hydrocortisone Sodium Succinate 50 mg Q6HR IV 05/15/25 18:00 05/16/25 06:13 50 MG Diagnostic Test (Pha) 1 strip Q6HR 05/15/25 18:00 05/16/25 06:13 1 STRIP Insulin Human Regular Q6HR SC 05/15/25 18:00 05/16/25 06:20 4 UNITS Dextrose 50 ml UD PRN IV 05/15/25 16:45 Metoclopramide HCl 5 mg Q8HPRN PRN IV 05/16/25 10:00 objective The patient is well-nourished and well-developed with no distress. The patient is intubated MENTAL STATUS: Subjective CRANIAL NERVES: Pupils are round with the right pupil is bigger and nonreactive, left pupil is reactive.There is corneal reflexes and doll's eyes phenomenon. No signs of facial weakness. There are gagging or coughing reflexes SENSATION: No responses to pain stimuli. MOTOR: Normal tone in the upper and lower extremity. Normal muscle bulk. No fasciculations. No spontaneous movement in the extremities REFLEXES: Deep tendon reflexes are symmetrical. No pathological reflexes. CEREBELLAR/COORDINATION: Deferred GAIT/STATION: deferred. laboratory and microbiology Laboratory Tests 05/16/25 03:00 Test 05/16/25 03:00 Range/Units Serum Glucose 180 H 74-106 mg/dL Problem List Unequal pupil size, secondary to right prosthetic eye Coma Hypoxic encephalopathy Metabolic encephalopathy Hepatic encephalopathy Respiratory acidosis Metabolic acidosis Respiratory failure Cognitive dysfunction/mild cognitive impairment ? Alcohol related dementia/Korsakoff disease ? Alzheimer's dementia Liver failure ? Secondary to alcoholism ? Secondary to congestive heart failure Kidney failure Pneumonia Assessment/Plan Monitoring Supportive treatment ICU care Stabilize vitals Respiratory support/vent management Oxygen Bicarb IV drip IV fluids IV antibiotics Thiamine supplementation Cardiology evaluation Pulmonology evaluation More recommendation per clinical course This medical document was created using an electronic medical record system with [employer] dictation system. Although this document has been carefully reviewed, there may still be some phonetic and typographical errors. These areas are purely typographical due to imperfections of the software programs, and do not reflect any compromise in the patient's medical care Prognosis guarded Dietary Evaluation Review Comments: 1. advance TF to Vital HP 55ml/hr providing 115g protwin, [id number] free water supporting pt's needs at 100% protein, 79% energy. 2. Reassess needs when Pt is off vent, and/or medically feasible for PO feedings. Expected Outcomes/Goals: maintain wt, avoid catablism Plan discussed with: Other Critical Care Time(min): 30 IZZY BOOKER MD May 16, 2025 10:50
--- NOTE | 2025-05-16 11:03 | DVHPNRES ---
Progress Note Date Seen: May 16, 2025 Resident Creating Document: AGNIESZKA CHENG RESIDENT Medical Necessity Reason Pt with a Central, PICC or Fol: Yes The following are medically ne: PICC Line, Edwards Catheter Subjective Review of Systems Subjective/interval events 74-year-old male with end-stage HFrEF with ejection fraction of 10% remains intubated and sedated on a.c./VC ventilator. Hemodynamics-stable on norepinephrine with systolic blood pressure between 110 to 126/57, map more than 65. Pressors-Levophed at low dose, new at 180, vasopressin at 0.03. Of epinephrine. BNP trending down yesterday it was 1538, prior more than 5000. Lactate improved yesterday 2.9. WBC count improving to 15.1 today. LFTs are worsening Urine output overnight is 275 mL +350 mL in the morning. Chest x-ray no significant interval changes (Limited by sedation/intubation. Data from chart review & nursing) * Cardiac: Prior chest pressure, now sedated. Telemetry with sinus rhythm. No arrhythmias. * Pulmonary: Intubated, pneumonia, hypoxemia., improving infiltrates on chest x- ray * Neuro: Sedated, unequal pupils prompted CT head no acute abnormality. * Other: No fevers/chills Objective vital signs Vital Sign Date Time Temp Pulse Resp B/P (MAP) Pulse Ox O2 Delivery O2 Flow Rate FiO2 05/16/25 10:00 30 05/16/25 10:00 20 97 Mechanical Ventilator+ 05/16/25 10:00 81 05/16/25 09:41 123/62 (82) 05/16/25 09:00 98.4 209.1 Total Intake and Output 05/15/25 05/15/25 05/16/25 15:00 23:00 07:00 Intake Total 1028.345 ml 924.065 ml 2367.164 ml Output Total 75 ml 275 ml Balance 1028.345 ml 849.065 ml 2092.164 ml medications Current Medications Medications Dose Ordered Sig/Mikki Route Start Time Stop Time Status Last Admin Dose Admin Midazolam HCl 50 ml @ 1 mls/hr Q24H IV 05/14/25 01:15 05/16/25 07:00 9 MLS/HR Lactulose 30 ml BID PO 05/14/25 10:00 05/16/25 09:42 30 ML Fentanyl Citrate 250 ml @ 2.5 mls/hr Q24H IV 05/14/25 10:15 05/16/25 07:07 5 MLS/HR Enoxaparin Sodium 30 mg DAILY SC 05/15/25 10:00 05/16/25 09:42 30 MG Cefepime HCl 50 ml @ 12.5 mls/hr Q12HR IV 05/14/25 22:00 05/16/25 09:42 12.5 MLS/HR Vancomycin HCl 0 ml @ 0 mls/hr UD IV 05/14/25 12:00 Enteral Nutritional Formula 1,000 ml 30ML/HR GT 05/14/25 16:30 Pantoprazole Sodium 40 mg DAILY IV 05/15/25 10:00 05/16/25 09:41 40 MG Sodium Chloride 10 ml QSHIFT@10,22 IV 05/14/25 22:00 05/16/25 09:41 10 ML Phenylephrine HCl 80 mg/Sodium Chloride 250 ml @ 7.5 mls/hr Q24H IV 05/15/25 03:00 05/16/25 08:45 33.75 MLS/HR Vasopressin 20 units/Sodium Chloride 100 ml @ 9 mls/hr Q11H7M IV 05/15/25 08:00 05/16/25 05:40 9 MLS/HR Norepinephrine Bitartrate 32 mg/ Sodium Chloride 250 ml @ 0.938 mls/ hr Q24H IV 05/15/25 09:00 05/16/25 07:01 5.625 MLS/HR Thiamine HCl 100 mg DAILY IV 05/16/25 10:00 05/16/25 09:42 100 MG Dextrose 50 ml UD PRN IV 05/15/25 13:15 Cancel Epinephrine HCl 250 ml @ 7.5 mls/hr Q24H IV 05/15/25 13:45 05/15/25 14:20 7.5 MLS/HR Bumetanide 2.5 mg BIDD IV 05/15/25 18:00 05/16/25 06:13 2.5 MG Metronidazole 100 ml @ 100 mls/hr Q8HR IV 05/15/25 22:00 05/16/25 06:22 100 MLS/HR Hydrocortisone Sodium Succinate 50 mg Q6HR IV 05/15/25 18:00 05/16/25 06:13 50 MG Diagnostic Test (Pha) 1 strip Q6HR 05/15/25 18:00 05/16/25 06:13 1 STRIP Insulin Human Regular Q6HR SC 05/15/25 18:00 05/16/25 06:20 4 UNITS Dextrose 50 ml UD PRN IV 05/15/25 16:45 Metoclopramide HCl 5 mg Q8HPRN PRN IV 05/16/25 10:00 Examination * General: Intubated, sedated. * CV: Tachycardic, JVD, S3 gallop, no acute murmur. * Lungs: Bilateral crackles, ventilated breath sounds. Improved aeration. * Abdomen: Mild distension, possible ascites. * Extremities: Bilateral pitting edema 2+. * Neuro: Pupils unequal earlier, CT head negative; sedated on Versed. * Skin: Warm, no mottling laboratory and microbiology Laboratory Tests 05/16/25 03:00 Test 05/16/25 03:00 Range/Units Serum Glucose 180 H 74-106 mg/dL Microbiology Date/Time Source Procedure Growth Status 05/14/25 08:24 Voided Urine Urine Culture - Preliminary Resulted 05/14/25 02:46 Nose MRSA Screen - Final Complete 05/14/25 01:18 Sputum Endotracheal Wash Gram Stain - Final Resulted 05/14/25 01:18 Sputum Endotracheal Wash Respiratory Culture - Preliminary Resulted 05/13/25 17:25 Blood Blood Culture - Preliminary NO GROWTH AFTER 48 HOURS OF INCUBATION. Resulted Problem List/Assessment/Plan Problem List/Assessment/Plan Assessment 1. 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 * SCAI Shock Stage CD (classic/deteriorating cardiogenic shock). * Killip IV (cardiogenic shock). * Acute ischemic vs progressive dilated cardiomyopathy. 2. Cardiogenic shock requiring pressors (dopamine + norepinephrine). 3. Acute hypoxemic respiratory failure (intubated, FiO2 80%, PEEP 7) due to pneumonia + CHF. 4. Right-sided pneumonia , sepsis physiology with lactic acidosis. 5. SAPNA (KDIGO stage 12) from hypoperfusion, sepsis, diuresis. 6. 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 Plan/Recommendation Plan Cardiovascular: * Continue norepinephrine as primary vasopressor (ACC/AHA + Surviving Sepsis). Epinephrine was discontinued. * continue vasopressin, phenylephrine and titrate to keep MAP more than equal to 65. * strict I/O, daily weights, fluid restriction <1.5 L/day. BNP improved, continue diuresis. Nephrotoxic agents. Nephrology on board. Bumex initiated. Monitor for arrhythmias, replenished K more than 4.0, mg > 2 * Hold beta-blockers & spironolactone until hemodynamically stable and off pressers * Evaluate candidacy for MCS (IABP/Impella/LVAD) prognosis limited by cirrhosis and cancer. Hepatic: * Continue lactulose BID, monitor ammonia. * Trend LFTs, coags. Prophylaxis: * DVT: Enoxaparin. * GI: IV PPI daily. * ICU bundle: head elevation, turning protocol, pressure sore prevention. Plan discussed with: Other (RN) Dietary Evaluation Review Comments: 1. advance TF to Vital HP 55ml/hr providing 115g protwin, [id number] free water supporting pt's needs at 100% protein, 79% energy. 2. Reassess needs when Pt is off vent, and/or medically feasible for PO feedings. Expected Outcomes/Goals: maintain wt, avoid catablism Visit Coding Cardiology RES Date of Service: May 16, 2025 Billing Provider: RENATA PEDRAZA MD Cardiology Common Codes: [id number] HOSP CARE(AGNIESZKA Real RESIDENT May 16, 2025 11:03
[2025-05-16] MEDS: METOCLOPRAMIDE HCL 5MG/ml INJ 2ml VIAL IV SCH (11:15)
--- NOTE | 2025-05-16 11:37 | DVHPN2 ---
Progress Note Date Seen: May 16, 2025 Resident Creating Document: LING VALENZUELA RESIDENT Medical Necessity Reason Pt with a Central, PICC or Fol: Yes The following are medically ne: PICC Line, Edwards Catheter Subjective Review of Systems 74-year-old female with past medical history of CHF, on home oxygen 2-3 L, diabetes mellitus, liver disease, hypertension hyperlipidemia presented to the [facility] with complaints of shortness of breath. Patient was initially on nasal cannula then non-rebreather then BiPAP and eventually intubated. Patient was found to have SAPNA and nephrology was consulted. 05/16/2025 Patient is currently sedated and intubated On norepinephrine, vasopressin and phenylephrine drip Input output 3.4 L/0.35 L Net +3 L Had 275 of urine output last night and 400 mL since morning Currently on vancomycin and cefepime with septic shock Objective vital signs Vital Sign Date Time Temp Pulse Resp B/P (MAP) Pulse Ox O2 Delivery O2 Flow Rate FiO2 05/16/25 10:45 98.4 85 20 103/63 (76) 97 209.1 110/53 (72) 05/16/25 10:00 30 05/16/25 10:00 Mechanical Ventilator+ Total Intake and Output 05/15/25 05/15/25 05/16/25 15:00 23:00 07:00 Intake Total 1028.345 ml 924.065 ml 2367.164 ml Output Total 75 ml 275 ml Balance 1028.345 ml 849.065 ml 2092.164 ml medications Current Medications Medications Dose Ordered Sig/Mikki Route Start Time Stop Time Status Last Admin Dose Admin Midazolam HCl 50 ml @ 1 mls/hr Q24H IV 05/14/25 01:15 05/16/25 07:00 Lactulose 30 ml BID PO 05/14/25 10:00 05/16/25 09:42 Fentanyl Citrate 250 ml @ 2.5 mls/hr Q24H IV 05/14/25 10:15 05/16/25 07:07 Enoxaparin Sodium 30 mg DAILY SC 05/15/25 10:00 05/16/25 09:42 Cefepime HCl 50 ml @ 12.5 mls/hr Q12HR IV 05/14/25 22:00 05/16/25 09:42 Vancomycin HCl 0 ml @ 0 mls/hr UD IV 05/14/25 12:00 Enteral Nutritional Formula 1,000 ml 30ML/HR GT 05/14/25 16:30 Pantoprazole Sodium 40 mg DAILY IV 05/15/25 10:00 05/16/25 09:41 Sodium Chloride 10 ml QSHIFT@10,22 IV 05/14/25 22:00 05/16/25 09:41 Phenylephrine HCl 80 mg/Sodium Chloride 250 ml @ 7.5 mls/hr Q24H IV 05/15/25 03:00 05/16/25 08:45 Vasopressin 20 units/Sodium Chloride 100 ml @ 9 mls/hr Q11H7M IV 05/15/25 08:00 05/16/25 05:40 Norepinephrine Bitartrate 32 mg/ Sodium Chloride 250 ml @ 0.938 mls/ hr Q24H IV 05/15/25 09:00 05/16/25 07:01 Thiamine HCl 100 mg DAILY IV 05/16/25 10:00 05/16/25 09:42 Dextrose 50 ml UD PRN IV 05/15/25 13:15 Cancel Epinephrine HCl 250 ml @ 7.5 mls/hr Q24H IV 05/15/25 13:45 05/15/25 14:20 Bumetanide 2.5 mg BIDD IV 05/15/25 18:00 05/16/25 06:13 Metronidazole 100 ml @ 100 mls/hr Q8HR IV 05/15/25 22:00 05/16/25 06:22 Hydrocortisone Sodium Succinate 50 mg Q6HR IV 05/15/25 18:00 05/16/25 11:17 Diagnostic Test (Pha) 1 strip Q6HR 05/15/25 18:00 05/16/25 11:17 Insulin Human Regular Q6HR SC 05/15/25 18:00 05/16/25 11:21 Dextrose 50 ml UD PRN IV 05/15/25 16:45 Metoclopramide HCl 5 mg Q8HR IV 05/16/25 11:15 UNV Examination Examination General Appearance: Sedated and intubated HEENT: EOMI Respiratory: Clear to auscultation, Normal air movement, on mechanical ventilator Cardiovascular: Regular rate, Normal S1, Normal S2 Abdominal: Normal bowel sounds Extremities: No cyanosis, No edema, Normal pulses, No tenderness/swelling Skin: No rashes, No breakdown Neuro: Sedated and intubated laboratory and microbiology Laboratory Tests 05/16/25 03:00 Test 05/16/25 03:00 Range/Units Serum Glucose 180 H 74-106 mg/dL Microbiology Date/Time Source Procedure Growth Status 05/14/25 08:24 Voided Urine Urine Culture - Preliminary Resulted 05/14/25 02:46 Nose MRSA Screen - Final Complete 05/14/25 01:18 Sputum Endotracheal Wash Gram Stain - Final Resulted 05/14/25 01:18 Sputum Endotracheal Wash Respiratory Culture - Preliminary Resulted 05/13/25 17:25 Blood Blood Culture - Preliminary NO GROWTH AFTER 48 HOURS OF INCUBATION. Resulted Labs and/or images reviewed: Labs reviewed by me, Image(s) reviewed by me Problem List/Assessment/Plan Problem List/Assessment/Plan Assessment/plan # acute kidney injury likely in the setting of shock , related to acute tubular necrosis likely -improved on urine output today Input output 3.4 L/0.35 L net +3 L Had 275 of urine output last night and 400 mL since morning Labs 05/16/2025 Serum creatinine 2.69, previous 2.67 on 05/15/2025 # hypocalcemia, asymptomatic Corrected calcium 8.6 # acute hypoxic respiratory failure, on ventilator # shock, likely cardiogenic, possible septic shock component # acute HFrEF exacerbation # diabetes mellitus type 2 # history of liver disease # history of hypertension # hyperlipidemia Plan Strict input output Monitor kidney function and electrolytes Inotropes and vasopressors- consider adding inotrope for cardiogenic shock Continue with Bumex IV 2.5 mg b.i.d. Avoid nephrotoxic drugs Ordered urine studies including urine sodium and urine creatinine, awaiting results Rest Management per ICU team Case discussion with Dr. Mccann. Plan discussed with: Other My Orders My Orders Orders - LING VALENZUELA RESIDENT Procedure Category Date Status Time Urine Sodium LAB 05/16/25 In Process 10:29 Urine Creatinine LAB 05/16/25 In Process 10:29 Urea Nitrogen 24hr LAB 05/16/25 Logged Urine 10:29 Dietary Evaluation Review Comments: 1. advance TF to Vital HP 55ml/hr providing 115g protwin, [id number] free water supporting pt's needs at 100% protein, 79% energy. 2. Reassess needs when Pt is off vent, and/or medically feasible for PO feedings. Expected Outcomes/Goals: maintain wt, avoid catablism Critical Care Time (mins): 39 LING VALENZUELA May 16, 2025 11:37 LIZ MCCANN MD May 16, 2025 17:16
[2025-05-16] MEDS: VANCOMYCIN 500mg/100mL 100 ML IV ONE (13:13)
--- NOTE | 2025-05-16 13:42 | DVHPNRES ---
Progress Note Date Seen: May 16, 2025 Resident Creating Document: DUARTE SPIVEY RESIDENT Medical Necessity Reason Pt with a Central, PICC or Fol: Yes The following are medically ne: PICC Line, Edwards Catheter Subjective Review of Systems This is a 74-year-old male with past medical history of CHF on home O2 2 to 3L, diabetes mellitus, liver disease, hypertension, and hyperlipidemia who presented to [facility] ED with complaint of shortness of breaths. Patient reports that he has been experiencing worsening shortness of breaths with associated leg swelling and chest pressure since this morning. Patient was on 87% on 2L despite giving 2 DuoNeb treatments en route, placing him on a non- rebreather mask upon arrival. in the ED patient was hypoxic, increased work of breathing, desaturating on BiPAP and subsequently intubated. Patient was seen and examined in the ICU. he is on mechanical ventilation with FiO2 40%, tidal volume 500 mL, peep 7, respiratory rate 20. BP was relatively stable than yesterday and right now on 3 pressors. Urine Output is significantly improved than yesterday and 450 mL since morning Objective vital signs Vital Sign Date Time Temp Pulse Resp B/P (MAP) Pulse Ox O2 Delivery O2 Flow Rate FiO2 05/16/25 13:00 98.4 81 20 115/48 (70) 97 209.1 120/54 (76) 05/16/25 12:00 30 05/16/25 12:00 Mechanical Ventilator+ Total Intake and Output 05/15/25 05/15/25 05/16/25 15:00 23:00 07:00 Intake Total 1028.345 ml 924.065 ml 2367.164 ml Output Total 75 ml 275 ml Balance 1028.345 ml 849.065 ml 2092.164 ml medications Current Medications Medications Dose Ordered Sig/Mikki Route Start Time Stop Time Status Last Admin Dose Admin Midazolam HCl 50 ml @ 1 mls/hr Q24H IV 05/14/25 01:15 05/16/25 12:18 7 MLS/HR Lactulose 30 ml BID PO 05/14/25 10:00 05/16/25 09:42 30 ML Fentanyl Citrate 250 ml @ 2.5 mls/hr Q24H IV 05/14/25 10:15 05/16/25 07:07 5 MLS/HR Enoxaparin Sodium 30 mg DAILY SC 05/15/25 10:00 05/16/25 09:42 30 MG Cefepime HCl 50 ml @ 12.5 mls/hr Q12HR IV 05/14/25 22:00 05/16/25 09:42 12.5 MLS/HR Vancomycin HCl 0 ml @ 0 mls/hr UD IV 05/14/25 12:00 Enteral Nutritional Formula 1,000 ml 30ML/HR GT 05/14/25 16:30 Pantoprazole Sodium 40 mg DAILY IV 05/15/25 10:00 05/16/25 09:41 40 MG Sodium Chloride 10 ml QSHIFT@10,22 IV 05/14/25 22:00 05/16/25 09:41 10 ML Phenylephrine HCl 80 mg/Sodium Chloride 250 ml @ 7.5 mls/hr Q24H IV 05/15/25 03:00 05/16/25 08:45 33.75 MLS/HR Vasopressin 20 units/Sodium Chloride 100 ml @ 9 mls/hr Q11H7M IV 05/15/25 08:00 05/16/25 05:40 9 MLS/HR Norepinephrine Bitartrate 32 mg/ Sodium Chloride 250 ml @ 0.938 mls/ hr Q24H IV 05/15/25 09:00 05/16/25 07:01 5.625 MLS/HR Thiamine HCl 100 mg DAILY IV 05/16/25 10:00 05/16/25 09:42 100 MG Dextrose 50 ml UD PRN IV 05/15/25 13:15 Cancel Epinephrine HCl 250 ml @ 7.5 mls/hr Q24H IV 05/15/25 13:45 05/15/25 14:20 7.5 MLS/HR Bumetanide 2.5 mg BIDD IV 05/15/25 18:00 05/16/25 06:13 2.5 MG Metronidazole 100 ml @ 100 mls/hr Q8HR IV 05/15/25 22:00 05/16/25 06:22 100 MLS/HR Hydrocortisone Sodium Succinate 50 mg Q6HR IV 05/15/25 18:00 05/16/25 11:17 50 MG Diagnostic Test (Pha) 1 strip Q6HR 05/15/25 18:00 05/16/25 11:17 1 STRIP Insulin Human Regular Q6HR SC 05/15/25 18:00 05/16/25 11:21 3 UNITS Dextrose 50 ml UD PRN IV 05/15/25 16:45 Metoclopramide HCl 5 mg Q8HR IV 05/16/25 11:15 05/16/25 13:14 5 MG Examination Examination General: RASS -3, afebrile, mucosae are moist Cardiovascular: Normal S1 and S2. No murmurs, gallops or rubs Respiratory: Mechanically assisted ventilation, equal bilateral airway entree. Rales and crackles in the right side Abdomen: Soft, nontender, no organomegaly, normal bowel sounds MSK/skin: Mobilization of limbs cannot be evaluated. Skin is dry and warm. Neurological: Orientation cannot be assessed. No apparent motor no sensitive deficits. Pupils are unequal, reactive left pupil, status post prosthesis of right eye laboratory and microbiology Laboratory Tests 05/16/25 03:00 Test 05/16/25 03:00 Range/Units Serum Glucose 180 H 74-106 mg/dL Microbiology Date/Time Source Procedure Growth Status 05/14/25 08:24 Voided Urine Urine Culture - Final Complete 05/14/25 02:46 Nose MRSA Screen - Final Complete 05/14/25 01:18 Sputum Endotracheal Wash Gram Stain - Final Resulted 05/14/25 01:18 Sputum Endotracheal Wash Respiratory Culture - Preliminary Resulted 05/13/25 17:25 Blood Blood Culture - Preliminary NO GROWTH AFTER 48 HOURS OF INCUBATION. Resulted Labs and/or images reviewed: Labs reviewed by me, Image(s) reviewed by me Problem List/Assessment/Plan Problem List/Assessment/Plan Assessment and plan: NEURO: Acute Metabolic encephalopathy likely secondary to acute hypoxic respiratory failure, status post intubation unequal pupil likely due to right eye prosthesis RASS score: -3 CARDIOVASCULAR: Acute on chronic decompensated systolic heart failure cardiogenic shock/ septic shock secondary to above NSTEMI type 2 likely secondary to above -chest x-ray demonstrated right-sided pneumonia with pulmonary vascular congestion -BNP> 5000 and trops were mildly elevated and flat - Echo on 02/10 demonstrated EF 10% with end-stage dilated heart failure, RVSP 38 mm Hg - patient is on 4 pressors, maxed on norepinephrine and phenylephrine - Hold GDM T because of the pressor support in shock PULMONARY: Acute hypoxic respiratory failure secondary to exacerbation of CHF/ pneumonia right-sided Gram-positive versus Gram-negative community acquired pneumonia possible aspiration pneumonia Rule out lung malignancy - chest x-ray demonstrated right-sided pneumonia with pulmonary vascular congestion - pending respiratory culture and MRSA negative - IV vancomycin as per pharmacy and IV cefepime 1 g q.12 hours and IV metronidazole q8hr. 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 GENITOURINARY: Acute kidney injury likely secondary to shock - Nephrology on board and started bumex 2.5 mg IV bid. - strict I&O - monitor BMP ENDOCRINE: Hypoglycemia - started tube feeding with Jevity - monitor blood sugar closely METABOLIC: Moderate protein calorie malnutrition HEME: Chronic microcytic hypochromic anemia likely due to anemia of chronic disease Thrombocytopenia likely due to cirrhosis INFECTIOUS DISEASE: Right-sided Gram-positive/ Gram-negative community acquired pneumonia possible aspiration pneumonia - chest x-ray demonstrated right-sided pneumonia with pulmonary vascular congestion - Preliminary blood cultures were unremarkable and MRSA negative - IV vancomycin as per pharmacy and IV cefepime 1 g q.12 hours and IV metronidazole q8hr. DIET: Jevity DVT prophylax:Lovenox GI prophylaxis:Protonix Bowel regimen:Lactulose Code status: modified DNR, no chest compression LINES/DRAINS/ACCESS: Rt upper arm PICC line on 05/14 ETT: Intubated on 05/13/25 IV access: Rt upper arm PICC line on 05/14, rt femoral arterial line 05/15 Drips: Epinephrine, norepinephrine, Phenylephrine, vasopressin, fentanyl and Versed Edwards catheter: placed on 05/13/2025 DISPOSITION: ICU Patient's status discussed with son and [id number] Critical care time spent more than 81 minutes, including patient care, chart review, and updating the family. Excluding any procedures. Case discussed with Dr. Hopkins Plan discussed with: Other (RN) My Orders My Orders Orders - DUARTE SPIVEY RESIDENT Procedure Category Date Status Time Hydrocortisone PHA 05/15/25 In Process Succinate Inj 18:00 Glucose Blood PHA 05/15/25 In Process (Accu-Chek Comfort 18:00 Insulin R (Human) PHA 05/15/25 In Process (Insulin R) 18:00 Dextrose 50% Syringe PHA 05/15/25 In Process 16:45 Abdomen Complete US 05/15/25 Resulted Sonogram 16:37 Us Guided Vascular US 05/15/25 Logged Access 16:44 Communication Order ORDERS 05/15/25 Transmitted 20:26 Chest Portable XY 05/16/25 Resulted 04:00 Abg W/ Co-Ox RT 05/16/25 Logged 06:00 Creatinine LAB 05/17/25 Verified 04:00 Vancomycin,Random LAB 05/17/25 Verified 04:00 Metoclopramide PHA 05/16/25 In Process Injection (Reglan 11:15 Electrocardigram EKG 05/16/25 Logged 11:51 Carbohydrate Antigen LAB 05/16/25 Logged 19-9 Carcinoembryonic LAB 05/16/25 Logged Antigen 13:38 Dietary Evaluation Review Comments: 1. advance TF to Vital HP 55ml/hr providing 115g protwin, [id number] free water supporting pt's needs at 100% protein, 79% energy. 2. Reassess needs when Pt is off vent, and/or medically feasible for PO feedings. Expected Outcomes/Goals: maintain wt, avoid catablism Date of Service: May 16, 2025 Billing Provider: NOÉ HOPKINS MD Common Visit Codes: [id number] CARE 30-74 MIN, 14960-[id number] CARE-EACH +30MIN DUARTE SPIVEY RESIDENT May 16, 2025 13:42 NOÉ HOPKINS MD May 20, 2025 15:47
--- NOTE | 2025-05-16 20:14 | DVHPN2 ---
Consult Progress Note Date Seen: May 16, 2025 Subjective Other Systems: Patient was seen and evaluated in follow up in the ICU. Patient is intubated and sedated on ventilator. 30% FiO2. Hemodynamics-stable on norepinephrine with systolic blood pressure between 110 to 126/57, map more than 65. Pressors-Levophed at low dose, new at 180, vasopressin at 0.03. Of epinephrine. BNP trending down yesterday it was 1538, prior more than 5000. Lactate improved yesterday 2.9. WBC count improving to 15.1 today. LFTs are worsening. Urine output overnight is 275 mL +350 mL in the morning. Chest x-ray no significant interval changes. Objective vital signs Vital Sign Date Time Temp Pulse Resp B/P (MAP) Pulse Ox O2 Delivery O2 Flow Rate FiO2 05/16/25 12:00 30 05/16/25 12:00 20 97 Mechanical Ventilator+ 05/16/25 12:00 87 05/16/25 12:00 98.4 105/67 (80) 209.1 114/52 (72) Total Intake and Output 05/15/25 05/15/25 05/16/25 15:00 23:00 07:00 Intake Total 1028.345 ml 924.065 ml 2367.164 ml Output Total 75 ml 275 ml Balance 1028.345 ml 849.065 ml 2092.164 ml medications Current Medications Medications Dose Ordered Sig/Mikki Route Start Time Stop Time Status Last Admin Dose Admin Midazolam HCl 50 ml @ 1 mls/hr Q24H IV 05/14/25 01:15 05/16/25 12:18 7 MLS/HR Lactulose 30 ml BID PO 05/14/25 10:00 05/16/25 09:42 30 ML Fentanyl Citrate 250 ml @ 2.5 mls/hr Q24H IV 05/14/25 10:15 05/16/25 07:07 5 MLS/HR Enoxaparin Sodium 30 mg DAILY SC 05/15/25 10:00 05/16/25 09:42 30 MG Cefepime HCl 50 ml @ 12.5 mls/hr Q12HR IV 05/14/25 22:00 05/16/25 09:42 12.5 MLS/HR Vancomycin HCl 0 ml @ 0 mls/hr UD IV 05/14/25 12:00 Enteral Nutritional Formula 1,000 ml 30ML/HR GT 05/14/25 16:30 Pantoprazole Sodium 40 mg DAILY IV 05/15/25 10:00 05/16/25 09:41 40 MG Sodium Chloride 10 ml QSHIFT@10,22 IV 05/14/25 22:00 05/16/25 09:41 10 ML Phenylephrine HCl 80 mg/Sodium Chloride 250 ml @ 7.5 mls/hr Q24H IV 05/15/25 03:00 05/16/25 08:45 33.75 MLS/HR Vasopressin 20 units/Sodium Chloride 100 ml @ 9 mls/hr Q11H7M IV 05/15/25 08:00 05/16/25 05:40 9 MLS/HR Norepinephrine Bitartrate 32 mg/ Sodium Chloride 250 ml @ 0.938 mls/ hr Q24H IV 05/15/25 09:00 05/16/25 07:01 5.625 MLS/HR Thiamine HCl 100 mg DAILY IV 05/16/25 10:00 05/16/25 09:42 100 MG Dextrose 50 ml UD PRN IV 05/15/25 13:15 Cancel Epinephrine HCl 250 ml @ 7.5 mls/hr Q24H IV 05/15/25 13:45 05/15/25 14:20 7.5 MLS/HR Bumetanide 2.5 mg BIDD IV 05/15/25 18:00 05/16/25 06:13 2.5 MG Metronidazole 100 ml @ 100 mls/hr Q8HR IV 05/15/25 22:00 05/16/25 06:22 100 MLS/HR Hydrocortisone Sodium Succinate 50 mg Q6HR IV 05/15/25 18:00 05/16/25 11:17 50 MG Diagnostic Test (Pha) 1 strip Q6HR 05/15/25 18:00 05/16/25 11:17 1 STRIP Insulin Human Regular Q6HR SC 05/15/25 18:00 05/16/25 11:21 3 UNITS Dextrose 50 ml UD PRN IV 05/15/25 16:45 Metoclopramide HCl 5 mg Q8HR IV 05/16/25 11:15 Examination: GENERAL:Abnormal (Intubated on ventilator ), LUNGS:Abnormal ( Bilateral crackles, ventilated breath sounds ), CVS:Abnormal (Tachycardic, JVD ), ABDOMEN:Abnormal, MSK:Abnormal (Bilateral pitting edema 2+ ), NEURO:Abnormal (sedated, pupils unequal earlier ) laboratory and microbiology Laboratory Tests 05/16/25 03:00 Test 05/16/25 03:00 Range/Units Serum Glucose 180 H 74-106 mg/dL Problem List/Assessment/Plan Problem List/Assessment/Plan Assessment 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 SCAI Shock Stage CD (classic/deteriorating cardiogenic shock). Killip IV (cardiogenic shock). Acute ischemic vs progressive dilated cardiomyopathy. Cardiogenic shock requiring pressors (dopamine + norepinephrine). Acute hypoxemic respiratory failure (intubated, FiO2 80%, PEEP 7) due to pneumonia + CHF. Right-sided pneumonia , sepsis physiology with lactic acidosis. SAPNA (KDIGO stage 12) from hypoperfusion, sepsis, diuresis. 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 Plan/Recommendation Continued all current supportive medical care. Patient has been seen by Moy Cantor Resident on my behalf, we have discussed the plan with the patient Continue norepinephrine as primary vasopressor (ACC/AHA + Surviving Sepsis). Epinephrine was discontinued. Continue vasopressin, phenylephrine and titrate to keep MAP more than equal to 65. Strict I/O, daily weights, fluid restriction <1.5 L/day. BNP improved, continue diuresis. Nephrotoxic agents. Nephrology on board. Bumex initiated. Monitor for arrhythmias, replenished K more than 4.0, mg > 2 Hold beta-blockers & spironolactone until hemodynamically stable and off pressers Evaluate candidacy for MCS (IABP/Impella/LVAD) prognosis limited by cirrhosis and cancer. Continue lactulose BID, monitor ammonia. Trend LFTs, coags. DVT: Enoxaparin. GI: IV PPI daily. ICU bundle: head elevation, turning protocol, pressure sore prevention. Additional plan as per the hospital course. Plan discussed with: Other Dietary Evaluation Review Comments: 1. advance TF to Vital HP 55ml/hr providing 115g protwin, [id number] free water supporting pt's needs at 100% protein, 79% energy. 2. Reassess needs when Pt is off vent, and/or medically feasible for PO feedings. Expected Outcomes/Goals: maintain wt, avoid catablism Date of Service: May 16, 2025 Billing Provider: RENATA PEDRAZA MD Cardiology Common Codes: 65233-[id number] INP/OBS CARE (High) Cardiology Consultation Codes: 62021-[id number] CONSULT <45MIN RENATA PEDRAZA MD May 16, 2025 12:36
[2025-05-16 22:47] LABS: Hemoglobin 12.6 g/dL (13.5-17.5)
[2025-05-16 22:48] LABS: Hematocrit 39.5 % (41.0-53.0); Mean Corpuscular Hemoglobin 21.0 pg (28.0-32.0); Mean Corpuscular Volume 65.6 fL (80.0-100.0); Nucleated Red Blood Cells % 0.3 %
[2025-05-16 22:53] LABS: Potassium 3.7 mmol/L (3.5-5.1)
[2025-05-16 22:54] LABS: Anion Gap 11 (5-15); Carbon Dioxide 24 mmol/L (20-31)
[2025-05-16 22:58] LABS: Calcium 7.6 mg/dL (8.7-10.4); Chloride 112 mmol/L (98-107); Sodium 147 mmol/L (136-145)
[2025-05-16 23:00] LABS: BUN/Creatinine Ratio 23.2 (10.0-20.0); Magnesium 2.0 mg/dL (1.6-2.6)
[2025-05-16 23:02] LABS: Blood Urea Nitrogen 52 mg/dL (9-23); Glucose 248 mg/dL (74-106)
[2025-05-17] VITALS (108 sets, daily range): BP systolic 80–141; BP diastolic 40–126; PULSE 53–99; RESP 14–23; TEMP 95.9–98.4; O2SAT 91–100
[2025-05-17 03:49] LABS: Hematocrit 37.1 % (41.0-53.0); Hemoglobin 12.1 g/dL (13.5-17.5); Mean Corpuscular Hemoglobin 21.5 pg (28.0-32.0); Mean Corpuscular Volume 66.2 fL (80.0-100.0)
[2025-05-17 03:52] LABS: Anion Gap 13 (5-15); BUN/Creatinine Ratio 24.3 (10.0-20.0); Carbon Dioxide 24 mmol/L (20-31); Potassium 3.5 mmol/L (3.5-5.1); Total Protein 5.8 g/dL (5.7-8.2)
[2025-05-17 03:58] LABS: Alanine Aminotransferase 137 U/L (7-40); Albumin 2.7 g/dL (3.2-4.8); Alkaline Phosphatase 448 U/L (46-116); Bilirubin, Total 3.1 mg/dL (0.2-1.0); Blood Urea Nitrogen 54 mg/dL (9-23); Calcium 7.9 mg/dL (8.7-10.4); Chloride 111 mmol/L (98-107); Glucose 230 mg/dL (74-106); Sodium 148 mmol/L (136-145)
[2025-05-17] MEDS: POTASSIUM CHL 20MEQ/100ML 100 ML IV ONE (04:37)
[2025-05-17 05:06] LABS: Total Cells Counted 100.0 (100)
--- NOTE | 2025-05-17 05:39 | DVH ---
CHEST RADIOGRAPH Indication: vent Technique: Single frontal view of the chest was obtained COMPARISON: XY CHEST PORTABLE on DOS: 05/16/25, XY CHEST PORTABLE on DOS: 05/15/25, XY CHEST XRAY 1 VIE W on DOS: 05/14/25, XY CHEST PORTABLE on DOS: 05/13/25, US CHEST ULTRASOUND on DOS: 05/02/25 FINDINGS: Lines and Tubes: Endotracheal tube, enteric catheter and right PICC in satisfactory position Lungs: Right lower lobe airspace disease Pleura: No effusion. No pneumothorax. Cardiomediastinal contours: Unremarkable Bones: Unremarkable IMPRESSION: Right lower lobe airspace disease, improving
[2025-05-17 06:57] LABS: Base Excess -3.4 mmol/L (-2.0-3.0)
--- NOTE | 2025-05-17 09:46 | ECG ---
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
--- NOTE | 2025-05-17 10:18 | DVHPN2 ---
Progress Note - Dictate Date Seen: May 17, 2025 Medical Necessity Reason Pt with a Central, PICC or Fol: Yes The following are medically ne: PICC Line, Edwards Catheter Subjective Mr. Mayberry is a 74 years old right-handed gentleman with a history of hypertension, diabetes, dyslipidemia, congestive heart failure on home oxygen, liver disease, he was brought to the [facility] on 05/13/2026 with a chief complaint of shortness of breath, in the hospital, the patient was found to have acute respiratory failure, combined metabolic respiratory acidosis, and was intubated in the emergency room. I have seen and examined the patient, I have talked to his nurse, his family is in the room with him, he is intubated, responsive to strong painful stimuli, on less pressor drip Granddaughter confirmed the history of intermittent mild memory problems Fentanyl 50 mcg/hour, Versed 6 mg/hour, Levo mg per hour, fentanyl 50 milligram/hour, Dobutamine 0 mcg/kg/min, neosyn 55 mcg, vasopressin 0.03 units/min Urinalysis, 05/13/2025: WBC: 7, urine leukocyte esterase: Negative ABG, 05/14/2025: Hypoxia, metabolic acidosis, 05/15/2025: Metabolic acidosis WBC/HB/PLT/MCV, 05/14/2025: 3.4/11.1/107/69.6, 05/15/25: 15.4/13.9/171/67 PT/INR/ABG, 05/14/2025: 12.2/1.71/35.8 BUN/CR, 05/14/2025: 21/1.69 GFR, 05/14/2025: 42 Lactic acid, 05/13/2025: 6.6, 8.3, 9.8 Glucose, 05/14/2025: 44, 40, 136, 116, 106 TBI/AST/ALT/AP, 05/14/2025: 2.5/84/52/209, : 149/170/95/158 Ammonia, 05/14/2025: 54 Vitamin B12, 01/24/2025: 941, 05/14/25: 776 Folic acid, 01/25/2025: 8.94, 05/14/25:9.29 TSH, 01/24/2025: 2.6, 05/14/2025: 4.19 Chest x-ray, 05/14/2025: 1. Adequately positioned endotracheal and enteric tubes new from prior exam. 2. Similar diffuse right and mild left basilar airspace disease. CT head, 05/14/2025: 1. No acute intracranial abnormality. 2. Right ocular lens prosthesis. 3. Mild periventricular and subcortical white matter disease likely related to sequelae of chronic microvascular ischemic changes although other etiologies are not excluded vital signs Vital Sign Date Time Temp Pulse Resp B/P (MAP) Pulse Ox O2 Delivery O2 Flow Rate FiO2 05/17/25 10:00 20 98 Mechanical Ventilator+ 30 30 05/17/25 10:00 76 05/17/25 09:45 97.9 103/63 (76) 208.2 115/66 (82) Total Intake and Output 05/16/25 05/16/25 05/17/25 15:00 23:00 07:00 Intake Total 800.40 ml 570.071 ml 744.568 ml Output Total 1150 ml 1450 ml Balance 800.40 ml -579.929 ml -705.432 ml medications Current Medications Medications Dose Ordered Sig/Mikki Route Start Time Stop Time Status Last Admin Dose Admin Midazolam HCl 50 ml @ 1 mls/hr Q24H IV 05/14/25 01:15 05/17/25 03:53 6 MLS/HR Lactulose 30 ml BID PO 05/14/25 10:00 05/16/25 21:52 30 ML Fentanyl Citrate 250 ml @ 2.5 mls/hr Q24H IV 05/14/25 10:15 05/16/25 07:07 5 MLS/HR Enoxaparin Sodium 30 mg DAILY SC 05/15/25 10:00 05/16/25 09:42 30 MG Cefepime HCl 50 ml @ 12.5 mls/hr Q12HR IV 05/14/25 22:00 05/17/25 09:41 12.5 MLS/HR Vancomycin HCl 0 ml @ 0 mls/hr UD IV 05/14/25 12:00 Pantoprazole Sodium 40 mg DAILY IV 05/15/25 10:00 05/17/25 09:41 40 MG Sodium Chloride 10 ml QSHIFT@10,22 IV 05/14/25 22:00 05/17/25 09:41 10 ML Phenylephrine HCl 80 mg/Sodium Chloride 250 ml @ 7.5 mls/hr Q24H IV 05/15/25 03:00 05/16/25 08:45 33.75 MLS/HR Vasopressin 20 units/Sodium Chloride 100 ml @ 9 mls/hr Q11H7M IV 05/15/25 08:00 05/17/25 03:53 9 MLS/HR Norepinephrine Bitartrate 32 mg/ Sodium Chloride 250 ml @ 0.938 mls/ hr Q24H IV 05/15/25 09:00 05/16/25 07:01 5.625 MLS/HR Thiamine HCl 100 mg DAILY IV 05/16/25 10:00 05/17/25 09:41 100 MG Dextrose 50 ml UD PRN IV 05/15/25 13:15 Cancel Epinephrine HCl 250 ml @ 7.5 mls/hr Q24H IV 05/15/25 13:45 05/15/25 14:20 7.5 MLS/HR Bumetanide 2.5 mg BIDD IV 05/15/25 18:00 05/17/25 05:53 2.5 MG Metronidazole 100 ml @ 100 mls/hr Q8HR IV 05/15/25 22:00 05/17/25 05:53 100 MLS/HR Hydrocortisone Sodium Succinate 50 mg Q6HR IV 05/15/25 18:00 05/17/25 05:53 50 MG Diagnostic Test (Pha) 1 strip Q6HR 05/15/25 18:00 05/17/25 05:53 1 STRIP Insulin Human Regular Q6HR SC 05/15/25 18:00 05/17/25 05:53 4 UNITS Dextrose 50 ml UD PRN IV 05/15/25 16:45 Metoclopramide HCl 5 mg Q8HR IV 05/16/25 11:15 05/16/25 21:53 5 MG Enteral Nutritional Formula 1,000 ml 30ML/HR GT 05/17/25 07:15 objective The patient is well-nourished and well-developed with no distress. The patient is intubated MENTAL STATUS: Subjective CRANIAL NERVES: Pupils are round with the right pupil is bigger and nonreactive, left pupil is reactive.There is corneal reflexes and doll's eyes phenomenon. No signs of facial weakness. There are gagging or coughing reflexes SENSATION: No responses to pain stimuli. MOTOR: Normal tone in the upper and lower extremity. Normal muscle bulk. No fasciculations. No spontaneous movement in the extremities REFLEXES: Deep tendon reflexes are symmetrical. No pathological reflexes. CEREBELLAR/COORDINATION: Deferred GAIT/STATION: deferred. laboratory and microbiology Laboratory Tests 05/17/25 03:00 Test 05/17/25 03:00 Range/Units Serum Glucose 230 H 74-106 mg/dL Problem List Unequal pupil size, secondary to right prosthetic eye Coma Hypoxic encephalopathy Metabolic encephalopathy Hepatic encephalopathy Respiratory acidosis Metabolic acidosis Respiratory failure Cognitive dysfunction/mild cognitive impairment ? Alcohol related dementia/Korsakoff disease ? Alzheimer's dementia Liver failure ? Secondary to alcoholism ? Secondary to congestive heart failure Kidney failure Pneumonia Assessment/Plan Monitoring Supportive treatment ICU care Stabilize vitals Respiratory support/vent management Oxygen Bicarb IV drip IV fluids IV antibiotics Thiamine supplementation Cardiology evaluation Pulmonology evaluation More recommendation per clinical course This medical document was created using an electronic medical record system with [employer] dictation system. Although this document has been carefully reviewed, there may still be some phonetic and typographical errors. These areas are purely typographical due to imperfections of the software programs, and do not reflect any compromise in the patient's medical care Prognosis guarded Dietary Evaluation Review Comments: 1. advance TF to Vital HP 55ml/hr providing 115g protwin, [id number] free water supporting pt's needs at 100% protein, 79% energy. 2. Reassess needs when Pt is off vent, and/or medically feasible for PO feedings. Expected Outcomes/Goals: maintain wt, avoid catablism Plan discussed with: Other Critical Care Time(min): 35 IZZY BOOKER MD May 17, 2025 10:18
--- NOTE | 2025-05-17 11:44 | DVH ---
Bilateral Upper Extremity Venous Duplex Clinical History: EDEMATEOUS WARM UPPER EXTREMITIES Comparison: US US GUIDED VASCULAR ACCESS on DOS: 05/14/25, US CHEST ULTRASOUND on DOS: 05/02/25, US BALJIT AT LOWER DVT on DOS: 01/24/25 Findings: Duplex Doppler evaluation of the venous systems of the right and left lower neck and upper extremitie s including color Doppler and spectral/pulsed waveform analysis was performed. IMPRESSION: Positive thrombus is present in the right subclavian vein, axillary vein and basilic vein with PICC l ine in-situ. Left basilic vein is thrombosed. Critical Result: DVT Findings discussed with Solange US by Kassie telegraph installer, at 05/17/2025 11:41 AM, and acknowledged receip t and understanding of the findings.
[2025-05-17] MEDS: Glucerna 1.2 Cal 1Liter BOTTLE GT SCH (12:05)
[2025-05-17] MEDS: VANCOMYCIN 500mg/100mL 100 ML IV ONE (12:06)
--- NOTE | 2025-05-17 12:27 | DVHPNRES ---
Progress Note Date Seen: May 17, 2025 Resident Creating Document: AGNIESZKA CHENG RESIDENT Has the PT tested + for MRSA If YES, has PT been informed?: No Medical Necessity Reason Pt with a Central, PICC or Fol: Yes The following are medically ne: PICC Line, Edwards Catheter Subjective Review of Systems This 74-year-old male with advanced HFrEF with ejection fraction of 10%, cirrhosis and sepsis remains intubated and sedated on mechanical ventilation. Currently on Versed 6, fentanyl 50, new 80 mcg/minute, vasopressin 0.03 units/minute. Levo has been discontinued. Hemodynamically stable with systolic BP in 110s to 130s, diastolic in 60s. WBC count improved to 13.1 today. Hemoglobin stable at 12.1. Platelets are declining 72 K, likely multifactorial with sepsis, cirrhosis, bone marrow suppression. Renal function is improving creatinine improved to 2.22, BUN increased from 52- 54. Lactic acid improving LFTs improving overall. Plan is to dobutamine drip for inotropic, continue pressor weaning as tolerated. (Limited by sedation/intubation. Data from chart review & nursing) * Cardiac: Prior chest pressure, now sedated. Telemetry with sinus rhythm. * Pulmonary: Intubated, pneumonia, hypoxemia., improving infiltrates on chest x- ray * Neuro: Sedated, unequal pupils prompted CT head no acute abnormality. * Other: No fevers/chills Objective vital signs Vital Sign Date Time Temp Pulse Resp B/P (MAP) Pulse Ox O2 Delivery O2 Flow Rate FiO2 05/17/25 11:29 89 20 132/65 (87) 99 30 05/17/25 10:00 Mechanical Ventilator+ 05/17/25 09:45 97.9 208.2 Total Intake and Output 05/16/25 05/16/25 05/17/25 15:00 23:00 07:00 Intake Total 800.40 ml 570.071 ml 744.568 ml Output Total 1150 ml 1450 ml Balance 800.40 ml -579.929 ml -705.432 ml medications Current Medications Medications Dose Ordered Sig/Mikki Route Start Time Stop Time Status Last Admin Dose Admin Midazolam HCl 50 ml @ 1 mls/hr Q24H IV 05/14/25 01:15 05/17/25 12:05 6 MLS/HR Lactulose 30 ml BID PO 05/14/25 10:00 05/16/25 21:52 30 ML Fentanyl Citrate 250 ml @ 2.5 mls/hr Q24H IV 05/14/25 10:15 05/16/25 07:07 5 MLS/HR Enoxaparin Sodium 30 mg DAILY SC 05/15/25 10:00 05/16/25 09:42 30 MG Cefepime HCl 50 ml @ 12.5 mls/hr Q12HR IV 05/14/25 22:00 05/17/25 09:41 12.5 MLS/HR Vancomycin HCl 0 ml @ 0 mls/hr UD IV 05/14/25 12:00 Pantoprazole Sodium 40 mg DAILY IV 05/15/25 10:00 05/17/25 09:41 40 MG Sodium Chloride 10 ml QSHIFT@10,22 IV 05/14/25 22:00 05/17/25 09:41 10 ML Phenylephrine HCl 80 mg/Sodium Chloride 250 ml @ 7.5 mls/hr Q24H IV 05/15/25 03:00 05/16/25 08:45 33.75 MLS/HR Vasopressin 20 units/Sodium Chloride 100 ml @ 9 mls/hr Q11H7M IV 05/15/25 08:00 05/17/25 03:53 9 MLS/HR Norepinephrine Bitartrate 32 mg/ Sodium Chloride 250 ml @ 0.938 mls/ hr Q24H IV 05/15/25 09:00 05/16/25 07:01 5.625 MLS/HR Thiamine HCl 100 mg DAILY IV 05/16/25 10:00 05/17/25 09:41 100 MG Dextrose 50 ml UD PRN IV 05/15/25 13:15 Cancel Epinephrine HCl 250 ml @ 7.5 mls/hr Q24H IV 05/15/25 13:45 05/15/25 14:20 7.5 MLS/HR Bumetanide 2.5 mg BIDD IV 05/15/25 18:00 05/17/25 05:53 2.5 MG Metronidazole 100 ml @ 100 mls/hr Q8HR IV 05/15/25 22:00 05/17/25 05:53 100 MLS/HR Hydrocortisone Sodium Succinate 50 mg Q6HR IV 05/15/25 18:00 05/17/25 12:05 50 MG Diagnostic Test (Pha) 1 strip Q6HR 05/15/25 18:00 05/17/25 11:55 1 STRIP Insulin Human Regular Q6HR SC 05/15/25 18:00 05/17/25 12:03 4 UNITS Dextrose 50 ml UD PRN IV 05/15/25 16:45 Metoclopramide HCl 5 mg Q8HR IV 05/16/25 11:15 05/16/25 21:53 5 MG Enteral Nutritional Formula 1,000 ml 30ML/HR GT 05/17/25 07:15 05/17/25 12:05 1,000 ML Examination * General: Intubated, sedated. * CV: Tachycardic, JVD, S3 gallop, no acute murmur. * Lungs: ventilated breath sounds. Improved aeration. * Abdomen: Mild distension, possible ascites. * Extremities: Bilateral pitting edema improved * Neuro: Pupils unequal earlier, CT head negative; sedated on Versed. * Skin: Warm, no mottling laboratory and microbiology Laboratory Tests 05/17/25 11:40 05/17/25 03:00 Test 05/17/25 03:00 Range/Units Serum Glucose 230 H 74-106 mg/dL Microbiology Date/Time Source Procedure Growth Status 05/14/25 08:24 Voided Urine Urine Culture - Final Complete 05/14/25 02:46 Nose MRSA Screen - Final Complete 05/14/25 01:18 Sputum Endotracheal Wash Gram Stain - Final Resulted 05/14/25 01:18 Sputum Endotracheal Wash Respiratory Culture - Preliminary Resulted 05/13/25 17:25 Blood Blood Culture - Preliminary NO GROWTH AFTER 72 HOURS OF INCUBATION. Resulted Problem List/Assessment/Plan Problem List/Assessment/Plan Assessment 1. 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 * SCAI Shock Stage CD (classic/deteriorating cardiogenic shock). * Killip IV (cardiogenic shock). * Acute ischemic vs progressive dilated cardiomyopathy. 2. Cardiogenic shock requiring pressors (dopamine + norepinephrine). 3. Acute hypoxemic respiratory failure (intubated, FiO2 80%, PEEP 7) due to pneumonia + CHF. 4. Right-sided pneumonia , sepsis physiology with lactic acidosis. 5. SAPNA (KDIGO stage 12) from hypoperfusion, sepsis, diuresis. 6. 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 Plan/Recommendation Plan Cardiovascular: * initiate dobutamine infusion for inotropes, monitor for tachyarrhythmia. * continue vasopressin, phenylephrine and titrate to keep MAP more than equal to 65. Tone as tolerated. * strict I/O, daily weights, fluid restriction <1.5 L/day. Trend BNP and lactate daily. BNP improved, continue diuresis. Nephrotoxic agents. Nephrology on board. Bumex initiated. Monitor for arrhythmias, replenished K more than 4.0, mg > 2 * Hold beta-blockers & spironolactone until hemodynamically stable and off pressers * Evaluate candidacy for MCS (IABP/Impella/LVAD) prognosis limited by cirrhosis and cancer. Nephrology follow-up appreciated. Hepatic: * Continue lactulose BID, monitor ammonia. * Trend LFTs, coags. Prophylaxis: * DVT: Enoxaparin. * GI: IV PPI daily. * ICU bundle: head elevation, turning protocol, pressure sore prevention. Plan discussed with: Son Dietary Evaluation Review Comments: 1. advance TF to Vital HP 55ml/hr providing 115g protwin, [id number] free water supporting pt's needs at 100% protein, 79% energy. 2. Reassess needs when Pt is off vent, and/or medically feasible for PO feedings. Expected Outcomes/Goals: maintain wt, avoid catablism Visit Coding Cardiology RES Date of Service: May 17, 2025 Billing Provider: RENATA PEDRAZA MD, RAGHAVA RAO RESIDENT May 17, 2025 12:27
[2025-05-17 14:20] LABS: Lactic Acid w/Reflex 2.4 mmol/L (0.4-2.0)
[2025-05-17 15:47] LABS: INR 1.22 (0.9-1.15); Prothrombin Time 12.7 sec (9.3-11.8)
[2025-05-17] MEDS: FREE WATER GT SCH (17:07)
[2025-05-17] MEDS: InsuLIN REG 1unit/0.01ml Soln (100units/ml) SC SCH (17:08)
--- NOTE | 2025-05-17 17:14 | DVHPNRES ---
Progress Note Date Seen: May 17, 2025 Resident Creating Document: DUARTE SPIVEY RESIDENT Has the PT tested + for MRSA If YES, has PT been informed?: No Medical Necessity Reason Pt with a Central, PICC or Fol: Yes The following are medically ne: PICC Line, Edwards Catheter Subjective Review of Systems This is a 74-year-old male with past medical history of CHF on home O2 2 to 3L, diabetes mellitus, liver disease, hypertension, and hyperlipidemia who presented to [facility] ED with complaint of shortness of breaths. Patient reports that he has been experiencing worsening shortness of breaths with associated leg swelling and chest pressure since this morning. Patient was on 87% on 2L despite giving 2 DuoNeb treatments en route, placing him on a non- rebreather mask upon arrival. in the ED patient was hypoxic, increased work of breathing, desaturating on BiPAP and subsequently intubated. Patient was seen and examined in the ICU. he is on mechanical ventilation with FiO2 40%, tidal volume 500 mL, peep 5, respiratory rate 20. BP was relatively stable than yesterday and right now on 2 pressors. Urine Output is significantly improved than yesterday . Objective vital signs Vital Sign Date Time Temp Pulse Resp B/P (MAP) Pulse Ox O2 Delivery O2 Flow Rate FiO2 05/17/25 16:00 30 05/17/25 16:00 20 99 Mechanical Ventilator+ 05/17/25 16:00 77 05/17/25 15:42 126/65 (85) 05/17/25 13:30 97.3 207.1 Total Intake and Output 05/16/25 05/16/25 05/17/25 15:00 23:00 07:00 Intake Total 800.40 ml 570.071 ml 744.568 ml Output Total 1150 ml 1450 ml Balance 800.40 ml -579.929 ml -705.432 ml medications Current Medications Medications Dose Ordered Sig/Mikki Route Start Time Stop Time Status Last Admin Dose Admin Midazolam HCl 50 ml @ 1 mls/hr Q24H IV 05/14/25 01:15 05/17/25 12:05 6 MLS/HR Lactulose 30 ml BID PO 05/14/25 10:00 05/16/25 21:52 30 ML Fentanyl Citrate 250 ml @ 2.5 mls/hr Q24H IV 05/14/25 10:15 05/16/25 07:07 5 MLS/HR Cefepime HCl 50 ml @ 12.5 mls/hr Q12HR IV 05/14/25 22:00 05/17/25 09:41 12.5 MLS/HR Vancomycin HCl 0 ml @ 0 mls/hr UD IV 05/14/25 12:00 Pantoprazole Sodium 40 mg DAILY IV 05/15/25 10:00 05/17/25 09:41 40 MG Sodium Chloride 10 ml QSHIFT@10,22 IV 05/14/25 22:00 05/17/25 09:41 10 ML Phenylephrine HCl 80 mg/Sodium Chloride 250 ml @ 7.5 mls/hr Q24H IV 05/15/25 03:00 05/16/25 08:45 33.75 MLS/HR Vasopressin 20 units/Sodium Chloride 100 ml @ 9 mls/hr Q11H7M IV 05/15/25 08:00 05/17/25 13:24 9 MLS/HR Norepinephrine Bitartrate 32 mg/ Sodium Chloride 250 ml @ 0.938 mls/ hr Q24H IV 05/15/25 09:00 05/16/25 07:01 5.625 MLS/HR Thiamine HCl 100 mg DAILY IV 05/16/25 10:00 05/17/25 09:41 100 MG Dextrose 50 ml UD PRN IV 05/15/25 13:15 Cancel Epinephrine HCl 250 ml @ 7.5 mls/hr Q24H IV 05/15/25 13:45 05/15/25 14:20 7.5 MLS/HR Bumetanide 2.5 mg BIDD IV 05/15/25 18:00 05/17/25 05:53 2.5 MG Metronidazole 100 ml @ 100 mls/hr Q8HR IV 05/15/25 22:00 05/17/25 14:30 100 MLS/HR Hydrocortisone Sodium Succinate 50 mg Q6HR IV 05/15/25 18:00 05/17/25 12:05 50 MG Diagnostic Test (Pha) 1 strip Q6HR 05/15/25 18:00 05/17/25 11:55 1 STRIP Dextrose 50 ml UD PRN IV 05/15/25 16:45 Metoclopramide HCl 5 mg Q8HR IV 05/16/25 11:15 05/17/25 14:00 5 MG Enteral Nutritional Formula 1,000 ml 30ML/HR GT 05/17/25 07:15 05/17/25 12:05 1,000 ML Enoxaparin Sodium 80 mg Q12HR SC 05/17/25 22:00 Insulin Human Regular Q6HR SC 05/17/25 18:00 Purified Water 200 ml Q6HR GT 05/17/25 18:00 Examination Examination General: RASS -3, afebrile, mucosae are moist Cardiovascular: Normal S1 and S2. No murmurs, gallops or rubs Respiratory: Mechanically assisted ventilation, equal bilateral airway entree. Rales and crackles in the right side Abdomen: Soft, nontender, no organomegaly, normal bowel sounds MSK/skin: Mobilization of limbs cannot be evaluated. Skin is dry and warm. Neurological: Orientation cannot be assessed. No apparent motor no sensitive deficits. Pupils are unequal, reactive left pupil, status post prosthesis of right eye laboratory and microbiology Laboratory Tests 05/17/25 11:40 05/17/25 03:00 Test 05/17/25 03:00 Range/Units Serum Glucose 230 H 74-106 mg/dL Microbiology Date/Time Source Procedure Growth Status 05/14/25 08:24 Voided Urine Urine Culture - Final Complete 05/14/25 02:46 Nose MRSA Screen - Final Complete 05/14/25 01:18 Sputum Endotracheal Wash Gram Stain - Final Resulted 05/14/25 01:18 Sputum Endotracheal Wash Respiratory Culture - Preliminary Resulted 05/13/25 17:25 Blood Blood Culture - Preliminary NO GROWTH AFTER 72 HOURS OF INCUBATION. Resulted Labs and/or images reviewed: Labs reviewed by me, Image(s) reviewed by me Problem List/Assessment/Plan Problem List/Assessment/Plan Assessment and plan: NEURO: Acute Metabolic encephalopathy likely secondary to acute hypoxic respiratory failure, status post intubation unequal pupil likely due to right eye prosthesis RASS score: -3 CARDIOVASCULAR: Acute on chronic decompensated systolic heart failure cardiogenic shock/ septic shock secondary to above NSTEMI type 2 likely secondary to above -chest x-ray demonstrated right-sided pneumonia with pulmonary vascular congestion -BNP> 5000 and trops were mildly elevated and flat - Echo on 02/10 demonstrated EF 10% with end-stage dilated heart failure, RVSP 38 mm Hg - patient is on 4 pressors, maxed on norepinephrine and phenylephrine - Hold GDM T because of the pressor support in shock PULMONARY: Acute hypoxic respiratory failure secondary to exacerbation of CHF/ pneumonia right-sided Gram-positive versus Gram-negative community acquired pneumonia possible aspiration pneumonia Rule out lung malignancy - chest x-ray demonstrated right-sided pneumonia with pulmonary vascular congestion - pending respiratory culture and MRSA negative - IV vancomycin as per pharmacy and IV cefepime 1 g q.12 hours and IV metronidazole q8hr. 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 GENITOURINARY: Acute kidney injury likely secondary to shock - Nephrology on board and started bumex 2.5 mg IV bid. - strict I&O - monitor BMP ENDOCRINE: Hypoglycemia - started tube feeding with Jevity - monitor blood sugar closely METABOLIC: Moderate protein calorie malnutrition Hypernatremia - Free water deficit 2.4 L - Free water 200 mL GT q.6 hours HEME: Acute DVT of right upper arm Chronic microcytic hypochromic anemia likely due to anemia of chronic disease Thrombocytopenia likely due to cirrhosis - Doppler venous scan of the upper extremity showed deep vein thrombosis of right axillary and subclavian vein and thrombosis of left basilic vein - Started therapeutic Lovenox 1 milligram/kg body weight b.i.d. INFECTIOUS DISEASE: Right-sided Gram-positive/ Gram-negative community acquired pneumonia Possible aspiration pneumonia - chest x-ray demonstrated right-sided pneumonia with pulmonary vascular congestion - Preliminary blood cultures were unremarkable and MRSA negative - IV vancomycin as per pharmacy and IV cefepime 1 g q.12 hours and IV metronidazole q8hr. DIET: Glucerna DVT prophylax:Lovenox GI prophylaxis:Protonix Bowel regimen:Lactulose Code status: modified DNR, no chest compression LINES/DRAINS/ACCESS: Rt upper arm PICC line on 05/14 ETT: Intubated on 05/13/25 IV access: Rt upper arm PICC line on 05/14, rt femoral arterial line 05/15 Drips: Phenylephrine, vasopressin, fentanyl and Versed Edwards catheter: placed on 05/13/2025 DISPOSITION: ICU Patient's status discussed with son and [id number] Critical care time spent more than 81 minutes, including patient care, chart review, and updating the family. Excluding any procedures. Case discussed with Dr. Puga Plan discussed with: Other (Son, RN) My Orders My Orders Orders - DUARTE SPIVEY Procedure Category Date Status Time Chest Portable XY 05/17/25 Resulted 04:00 Abg W/ Co-Ox RT 05/17/25 Logged 06:00 Nutritional PHA 05/17/25 In Process Supplements (Glucerna 07:15 Creatinine LAB 05/18/25 Verified 05:00 Vancomycin Per SOPHIA 05/17/25 In Process Pharmacy Protoc 13:00 Chst Ab Pel Wo Con-No CT 05/18/25 Logged Iv/Oral 09:00 Bi Lat Upper Dvt US 05/17/25 Resulted 10:39 Enoxaparin Sodium PHA 05/17/25 In Process (Lovenox) 22:00 * Picc Line Consult CONS 05/17/25 Transmitted 12:46 Vancomycin,Random LAB 05/18/25 Verified 05:00 Cover Wound With Foam SOPHIA 05/17/25 In Process Dressing 13:34 Insulin R (Human) PHA 05/17/25 In Process (Insulin R) 18:00 Potassium Effervesent PHA 05/17/25 Transmitted Tab (Klor-Con/Ef) 17:15 Dietary Evaluation Review Comments: 1. advance TF to Vital HP 55ml/hr providing 115g protwin, [id number] free water supporting pt's needs at 100% protein, 79% energy. 2. Reassess needs when Pt is off vent, and/or medically feasible for PO feedings. Expected Outcomes/Goals: maintain wt, avoid catablism DUARTE SPIVEY May 17, 2025 17:14
[2025-05-17] MEDS: POTASSIUM EFFERVESENT TAB 25 MEQ PO ONE (17:15)
--- NOTE | 2025-05-17 17:53 | DVHPN2 ---
Progress Note Date Seen: May 17, 2025 Resident Creating Document: LING VALENZUELA RESIDENT Has the PT tested + for MRSA If YES, has PT been informed?: No Medical Necessity Reason Pt with a Central, PICC or Fol: Yes The following are medically ne: PICC Line, Edwards Catheter Subjective Review of Systems Subjective Review of Systems 74-year-old female with past medical history of CHF, on home oxygen 2-3 L, diabetes mellitus, liver disease, hypertension hyperlipidemia presented to the [facility] with complaints of shortness of breath. Patient was initially on nasal cannula then non-rebreather then BiPAP and eventually intubated. Patient was found to have SAPNA and nephrology was consulted. 05/17/2025 Patient is currently sedated and intubated On vasopressin and phenylephrine drip Input output 3.1 L/2.6 Lt L Net +0.5 L Currently on vancomycin and cefepime with septic shock Objective vital signs Vital Sign Date Time Temp Pulse Resp B/P (MAP) Pulse Ox O2 Delivery O2 Flow Rate FiO2 05/17/25 17:07 117/60 05/17/25 16:00 30 05/17/25 16:00 20 99 Mechanical Ventilator+ 05/17/25 16:00 77 05/17/25 13:30 97.3 207.1 Total Intake and Output 05/16/25 05/16/25 05/17/25 15:00 23:00 07:00 Intake Total 800.40 ml 570.071 ml 744.568 ml Output Total 1150 ml 1450 ml Balance 800.40 ml -579.929 ml -705.432 ml medications Current Medications Medications Dose Ordered Sig/Mikki Route Start Time Stop Time Status Last Admin Dose Admin Midazolam HCl 50 ml @ 1 mls/hr Q24H IV 05/14/25 01:15 05/17/25 12:05 6 MLS/HR Lactulose 30 ml BID PO 05/14/25 10:00 05/16/25 21:52 30 ML Fentanyl Citrate 250 ml @ 2.5 mls/hr Q24H IV 05/14/25 10:15 05/16/25 07:07 5 MLS/HR Cefepime HCl 50 ml @ 12.5 mls/hr Q12HR IV 05/14/25 22:00 05/17/25 09:41 12.5 MLS/HR Vancomycin HCl 0 ml @ 0 mls/hr UD IV 05/14/25 12:00 Pantoprazole Sodium 40 mg DAILY IV 05/15/25 10:00 05/17/25 09:41 40 MG Sodium Chloride 10 ml QSHIFT@10,22 IV 05/14/25 22:00 05/17/25 09:41 10 ML Phenylephrine HCl 80 mg/Sodium Chloride 250 ml @ 7.5 mls/hr Q24H IV 05/15/25 03:00 05/16/25 08:45 33.75 MLS/HR Vasopressin 20 units/Sodium Chloride 100 ml @ 9 mls/hr Q11H7M IV 05/15/25 08:00 05/17/25 13:24 9 MLS/HR Norepinephrine Bitartrate 32 mg/ Sodium Chloride 250 ml @ 0.938 mls/ hr Q24H IV 05/15/25 09:00 05/16/25 07:01 5.625 MLS/HR Thiamine HCl 100 mg DAILY IV 05/16/25 10:00 05/17/25 09:41 100 MG Dextrose 50 ml UD PRN IV 05/15/25 13:15 Cancel Epinephrine HCl 250 ml @ 7.5 mls/hr Q24H IV 05/15/25 13:45 05/15/25 14:20 7.5 MLS/HR Bumetanide 2.5 mg BIDD IV 05/15/25 18:00 05/17/25 17:07 2.5 MG Metronidazole 100 ml @ 100 mls/hr Q8HR IV 05/15/25 22:00 05/17/25 14:30 100 MLS/HR Hydrocortisone Sodium Succinate 50 mg Q6HR IV 05/15/25 18:00 05/17/25 17:08 50 MG Diagnostic Test (Pha) 1 strip Q6HR 05/15/25 18:00 05/17/25 17:08 1 STRIP Dextrose 50 ml UD PRN IV 05/15/25 16:45 Metoclopramide HCl 5 mg Q8HR IV 05/16/25 11:15 05/17/25 14:00 5 MG Enteral Nutritional Formula 1,000 ml 30ML/HR GT 05/17/25 07:15 05/17/25 12:05 1,000 ML Enoxaparin Sodium 80 mg Q12HR SC 05/17/25 22:00 Insulin Human Regular Q6HR SC 05/17/25 18:00 05/17/25 17:08 9 UNITS Purified Water 200 ml Q6HR GT 05/17/25 18:00 05/17/25 17:07 200 ML Examination Examination General Appearance: Sedated and intubated HEENT: EOMI Respiratory: Clear to auscultation, Normal air movement, on mechanical ventilator Cardiovascular: Regular rate, Normal S1, Normal S2 Abdominal: Normal bowel sounds Extremities: No cyanosis, No edema, Normal pulses, No tenderness/swelling Skin: No rashes, No breakdown Neuro: Sedated and intubated laboratory and microbiology Laboratory Tests 05/17/25 11:40 05/17/25 03:00 Test 05/17/25 03:00 Range/Units Serum Glucose 230 H 74-106 mg/dL Microbiology Date/Time Source Procedure Growth Status 05/14/25 08:24 Voided Urine Urine Culture - Final Complete 05/14/25 02:46 Nose MRSA Screen - Final Complete 05/14/25 01:18 Sputum Endotracheal Wash Gram Stain - Final Resulted 05/14/25 01:18 Sputum Endotracheal Wash Respiratory Culture - Preliminary Resulted 05/13/25 17:25 Blood Blood Culture - Preliminary NO GROWTH AFTER 72 HOURS OF INCUBATION. Resulted Labs and/or images reviewed: Labs reviewed by me, Image(s) reviewed by me Problem List/Assessment/Plan Problem List/Assessment/Plan Assessment/plan # acute kidney injury likely in the setting of shock , related to acute tubular necrosis likely -improved on urine output today 05/17/2025 Input output 3.1 L/2.6 Lt L Net +0.5 L # hypernatremia # hypocalcemia, asymptomatic Corrected calcium 8.6 # acute hypoxic respiratory failure, on ventilator # shock, likely cardiogenic, possible septic shock component # acute HFrEF exacerbation # diabetes mellitus type 2 # history of liver disease # history of hypertension # hyperlipidemia Plan Strict input output Monitor kidney function and electrolytes Inotropes and vasopressors- consider adding inotrope for cardiogenic shock Continue with Bumex IV 2.5 mg b.i.d. Avoid nephrotoxic drugs started free water 200 ml Q6hrs, monitor BMP Rest Management per ICU team Case discussion with Dr. Mccann. Addendum Patient seen and examined, plan discussed with resident. Agree with above, we will follow closely Plan discussed with: Other My Orders My Orders Orders - LING VALENZUELA Procedure Category Date Status Time Free Water PHA 05/17/25 In Process 18:00 Dietary Evaluation Review Comments: 1. advance TF to Vital HP 55ml/hr providing 115g protwin, [id number] free water supporting pt's needs at 100% protein, 79% energy. 2. Reassess needs when Pt is off vent, and/or medically feasible for PO feedings. Expected Outcomes/Goals: maintain wt, avoid catablism LING VALENZUELA May 17, 2025 17:53 LIZ MCCANN MD May 17, 2025 18:46
[2025-05-17] MEDS: ENOXAPARIN SOD 100 MG/1 ML SYRINGE SC SCH (21:52)
--- NOTE | 2025-05-17 22:03 | DVHPN2 ---
Consult Progress Note Date Seen: May 17, 2025 Subjective Other Systems: Patient was seen and evaluated in follow-up in the ICU. Patient is intubated and sedated on ventilator. 30% FiO2. Currently on Versed 6, fentanyl 50, new 80 mcg/minute, vasopressin 0.03 units/minute. Levo has been discontinued. Hemodynamically stable with systolic BP in 110s to 130s, diastolic in 60s. WBC count improved to 13.1 today. Hemoglobin stable at 12.1. Platelets are declining 72 K, likely multifactorial with sepsis, cirrhosis, bone marrow suppression. Renal function is improving creatinine improved to 2.22, BUN increased from 52-54. Lactic acid improving LFTs improving overall. Plan is to dobutamine drip for inotropic, continue pressor weaning as tolerated. Objective vital signs Vital Sign Date Time Temp Pulse Resp B/P (MAP) Pulse Ox O2 Delivery O2 Flow Rate FiO2 05/17/25 13:24 109/69 05/17/25 12:00 30 05/17/25 12:00 75 05/17/25 12:00 20 99 Mechanical Ventilator+ 05/17/25 09:45 97.9 208.2 Total Intake and Output 05/16/25 05/16/25 05/17/25 15:00 23:00 07:00 Intake Total 800.40 ml 570.071 ml 744.568 ml Output Total 1150 ml 1450 ml Balance 800.40 ml -579.929 ml -705.432 ml medications Current Medications Medications Dose Ordered Sig/Mikki Route Start Time Stop Time Status Last Admin Dose Admin Midazolam HCl 50 ml @ 1 mls/hr Q24H IV 05/14/25 01:15 05/17/25 12:05 6 MLS/HR Lactulose 30 ml BID PO 05/14/25 10:00 05/16/25 21:52 30 ML Fentanyl Citrate 250 ml @ 2.5 mls/hr Q24H IV 05/14/25 10:15 05/16/25 07:07 5 MLS/HR Cefepime HCl 50 ml @ 12.5 mls/hr Q12HR IV 05/14/25 22:00 05/17/25 09:41 12.5 MLS/HR Vancomycin HCl 0 ml @ 0 mls/hr UD IV 05/14/25 12:00 Pantoprazole Sodium 40 mg DAILY IV 05/15/25 10:00 05/17/25 09:41 40 MG Sodium Chloride 10 ml QSHIFT@10,22 IV 05/14/25 22:00 05/17/25 09:41 10 ML Phenylephrine HCl 80 mg/Sodium Chloride 250 ml @ 7.5 mls/hr Q24H IV 05/15/25 03:00 05/16/25 08:45 33.75 MLS/HR Vasopressin 20 units/Sodium Chloride 100 ml @ 9 mls/hr Q11H7M IV 05/15/25 08:00 05/17/25 13:24 9 MLS/HR Norepinephrine Bitartrate 32 mg/ Sodium Chloride 250 ml @ 0.938 mls/ hr Q24H IV 05/15/25 09:00 05/16/25 07:01 5.625 MLS/HR Thiamine HCl 100 mg DAILY IV 05/16/25 10:00 05/17/25 09:41 100 MG Dextrose 50 ml UD PRN IV 05/15/25 13:15 Cancel Epinephrine HCl 250 ml @ 7.5 mls/hr Q24H IV 05/15/25 13:45 05/15/25 14:20 7.5 MLS/HR Bumetanide 2.5 mg BIDD IV 05/15/25 18:00 05/17/25 05:53 2.5 MG Metronidazole 100 ml @ 100 mls/hr Q8HR IV 05/15/25 22:00 05/17/25 05:53 100 MLS/HR Hydrocortisone Sodium Succinate 50 mg Q6HR IV 05/15/25 18:00 05/17/25 12:05 50 MG Diagnostic Test (Pha) 1 strip Q6HR 05/15/25 18:00 05/17/25 11:55 1 STRIP Insulin Human Regular Q6HR SC 05/15/25 18:00 05/17/25 12:03 4 UNITS Dextrose 50 ml UD PRN IV 05/15/25 16:45 Metoclopramide HCl 5 mg Q8HR IV 05/16/25 11:15 05/16/25 21:53 5 MG Enteral Nutritional Formula 1,000 ml 30ML/HR GT 05/17/25 07:15 05/17/25 12:05 1,000 ML Enoxaparin Sodium 80 mg Q12HR SC 05/17/25 22:00 Examination: GENERAL:Abnormal (Intubated, sedated), LUNGS:Abnormal ( ventilated breath sounds), CVS:Abnormal (Tachycardic, JVD, S3 gallop, no acute murmur), ABDOMEN:Abnormal (Mild distension), MSK:Abnormal (Bilateral pitting edema ), NEURO:Abnormal (sedated) laboratory and microbiology Laboratory Tests 05/17/25 11:40 05/17/25 03:00 Test 05/17/25 03:00 Range/Units Serum Glucose 230 H 74-106 mg/dL Problem List/Assessment/Plan Problem List/Assessment/Plan Assessment 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 SCAI Shock Stage CD (classic/deteriorating cardiogenic shock). Killip IV (cardiogenic shock). Acute ischemic vs progressive dilated cardiomyopathy. Cardiogenic shock requiring pressors (dopamine + norepinephrine). Acute hypoxemic respiratory failure (intubated, FiO2 80%, PEEP 7) due to pneumonia + CHF. Right-sided pneumonia , sepsis physiology with lactic acidosis. SAPNA (KDIGO stage 12) from hypoperfusion, sepsis, diuresis. 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 Plan/Recommendation Continued all current supportive medical care. Patient has been seen by Moy Cantor Resident on my behalf, we have discussed the plan with the patient Initiate dobutamine infusion for inotropes, monitor for tachyarrhythmia. Continue vasopressin, phenylephrine and titrate to keep MAP more than equal to 65. Tone as tolerated. Strict I/O, daily weights, fluid restriction <1.5 L/day. Trend BNP and lactate daily. BNP improved, continue diuresis. Nephrotoxic agents. Nephrology on board. Bumex initiated. Monitor for arrhythmias, replenished K more than 4.0, mg > 2. Hold beta-blockers & spironolactone until hemodynamically stable and off pressers. Evaluate candidacy for MCS (IABP/Impella/LVAD) prognosis limited by cirrhosis and cancer. Nephrology follow-up appreciated. Continue lactulose BID, monitor ammonia. Trend LFTs, coags. DVT: Enoxaparin. GI: IV PPI daily. ICU bundle: head elevation, turning protocol, pressure sore prevention. Additional plan as per the hospital course. Plan discussed with: Other Dietary Evaluation Review Comments: 1. advance TF to Vital HP 55ml/hr providing 115g protwin, [id number] free water supporting pt's needs at 100% protein, 79% energy. 2. Reassess needs when Pt is off vent, and/or medically feasible for PO feedings. Expected Outcomes/Goals: maintain wt, avoid catablism Date of Service: May 17, 2025 Billing Provider: RENATA PEDRAZA MD Cardiology Common Codes: [id number] HOSP CARE(High, [id number] CARE 30-74 MIN RENATA PEDRAZA MD May 17, 2025 13:38
[2025-05-18] VITALS (104 sets, daily range): BP systolic 77–144; BP diastolic 47–88; PULSE 57–87; RESP 15–27; TEMP 96.3–98.8; O2SAT 95–100
[2025-05-18 03:28] LABS: Hematocrit 35.9 % (41.0-53.0); Hemoglobin 11.6 g/dL (13.5-17.5); Mean Corpuscular Hemoglobin 21.1 pg (28.0-32.0); Mean Corpuscular Volume 65.4 fL (80.0-100.0)
[2025-05-18 03:44] LABS: Anion Gap 10 (5-15); BUN/Creatinine Ratio 27.5 (10.0-20.0); Carbon Dioxide 28 mmol/L (20-31); Total Protein 5.9 g/dL (5.7-8.2)
[2025-05-18 03:50] LABS: Alanine Aminotransferase 117 U/L (7-40); Albumin 2.7 g/dL (3.2-4.8); Alkaline Phosphatase 462 U/L (46-116); Bilirubin, Total 2.1 mg/dL (0.2-1.0); Blood Urea Nitrogen 52 mg/dL (9-23); Calcium 8.4 mg/dL (8.7-10.4); Chloride 114 mmol/L (98-107); Glucose 188 mg/dL (74-106); Potassium 3.4 mmol/L (3.5-5.1); Sodium 152 mmol/L (136-145)
[2025-05-18] MEDS: POTASSIUM CHL 20MEQ/100ML 100 ML IV ONE (05:01)
[2025-05-18] MEDS: FREE WATER GT SCH ×2 (05:35→12:10)
--- NOTE | 2025-05-18 06:44 | DVH ---
CHEST RADIOGRAPH Indication: Intubated Technique: Single frontal view of the chest was obtained COMPARISON: XY CHEST PORTABLE on DOS: 05/17/25, XY CHEST PORTABLE on DOS: 05/16/25, XY CHEST PORTABLE o n DOS: 05/15/25, XY CHEST XRAY 1 VIEW on DOS: 05/14/25, XY CHEST PORTABLE on DOS: 05/13/25, XY CHEST POR TABLE on DOS: 05/17/25 FINDINGS: Lines and Tubes: Endotracheal tube, enteric catheter and right PICC in satisfactory position Lungs: Right lower lobe airspace disease Pleura: No effusion. No pneumothorax. Cardiomediastinal contours: Unremarkable Bones: Unremarkable IMPRESSION: Right lower lobe airspace disease
[2025-05-18 06:46] LABS: Total Cells Counted 100.0 (100)
[2025-05-18 07:08] LABS: Base Excess 4.5 mmol/L (-2.0-3.0)
--- NOTE | 2025-05-18 10:02 | CONS ---
Pharmacy Clinical Information: Patient's platelets continue to decline on treatment dose of enoxaparin post DVT diagnosis. Platelets - 60 as of 05/18/25. Consider dose reduction if platelets decrease below 50; consider d/c enoxaparin if platelets < 30. Spike Canseco, Bong Fontaine, Natasha Canseco, et al. Platelet cut-off for anticoagulant therapy in thrombocytopenic patients with blood cancer and venous thromboembolism: an expert consensus. Blood Transfus. 2019;17(3):171-180. doi:10.2450/2018.0143-18 [email or web address].ncbi.nlm.nih.gov/[email or web address] SALOMON CERVANTES PHARMACIST May 18, 2025 10:02
--- NOTE | 2025-05-18 10:08 | DVH ---
CLINICAL HISTORY: RT PNA; LIVER MASS TECHNIQUE: CT of the chest, abdomen, and pelvis was performed without IV contrast. Coronal and sagitt al reformatted images were performed for better depression of the anatomy. This exam was performed ac cording to our departmental dose optimization program. Up-to-date CT equipment and radiation dose red uction techniques are utilized as appropriate. CTDI 13.7 DLP 945.3 COMPARISON: XY CHEST PORTABLE on DOS: 05/18/25, XY CHEST PORTABLE on DOS: 05/17/25, XY CHEST PORTABLE o n DOS: 05/16/25, US ABDOMEN COMPLETE SONOGRAM on DOS: 05/15/25, XY CHEST PORTABLE on DOS: 05/15/25 FINDINGS: CHEST: And endotracheal tube terminates in satisfactory position above the yimi. A right PICC terminates a t the table atrial junction. The thoracic aorta is normal in course and caliber. There are mild aortic arch atherosclerotic calcif ications. The heart is normal in size. There are 3 vessel coronary artery calcifications. No pericardial effusi on is seen. The main pulmonary artery dilated, measuring 3.7 cm diameter. No enlarged mediastinal, hilar, or axillary lymph node is present. The central airways are patent. There is no bronchiectasis. There are moderate centrilobular investments changes in both lungs, most notable at the apices. There are patchy right greater than left lower lobe opacities. There is mild right posterior upper and mid dle lobe atelectasis. There is a small right pleural effusion. No left pleural fusion is seen. ABDOMEN/PELVIS: The liver, gallbladder, pancreas, spleen, and renal glands roasting remarkable. There are numerous right and few left renal hilar calcifications, favor vascular. The prostate gland is obscured by beam hardening artifact from patient hip arthroplasties. The bladde r is poorly seen and decompressed by wong catheter. The abdominal aorta is normal in course and caliber. There are moderate to advanced atherosclerotic c alcifications. There is no free intraperitoneal air. There is trace ascites. There is extensive body wall edema, par ticularly at the lower extremities. There is no enlarged abdominal or pelvic lymph node. There is no bowel wall thickening or dilatation. The appendix is normal. There is mild left colon diverticulosis. A NGT tube terminates at the stomach. BONES: No acute osseous abnormality is evident. There are bilateral hip arthroplasties. IMPRESSION: Patchy right foot and left lower lobe opacities, favor infection / pneumonia. 3 vessel coronary artery calcifications. Pulmonary arterial hypertension. Trace right pleural effusio n. Mild colonic diverticulosis. Extensive body wall edema, particularly at the visualized lower extremities.
--- NOTE | 2025-05-18 10:32 | DVHPN2 ---
Subjective This is a 74-year-old male with past medical history of CHF on home O2 2 to 3L, diabetes mellitus, liver disease, hypertension, and hyperlipidemia who presented to [facility] ED with complaint of shortness of breaths. Patient reports that he has been experiencing worsening shortness of breaths with associated leg swelling and chest pressure since this morning. Patient was on 87% on 2L despite giving 2 DuoNeb treatments en route, placing him on a non- rebreather mask upon arrival. in the ED patient was hypoxic, increased work of breathing, desaturating on BiPAP and subsequently intubated. 05/17: he is on mechanical ventilation with FiO2 40%, tidal volume 500 mL, peep 5, respiratory rate 20. BP was relatively stable than yesterday and right now on 2 pressors. Urine Output is significantly improved than yesterday . 05/18: Patient intubated ventilated. Getting bronch this morning with pulmonology. Getting TPN feeds. Drips include Versed 3, Levophed quad at 4, fentanyl 75, weaning vasopressin 0.01. Ventilated settings a.c./16/5 100/30%/5.0. Making good urine output on Bumex, patient has CHF. Patient has hypernatremia we are changing free water from 400-200 q.6 and adding D5W at 30 cc hour and making BNP b.i.d. to monitor potassium as insulin we will be needed patient is diabetic and getting D5W now. Vital signs stable map 88, otherwise continue primary team's management. Reviewed: Care Plan Changes from previous H/P or p: No Changes General: Per HPI Eyes: No Pain, No Vision change, No Conjunctivae inflammation, No Eyelid inflammation, No Other, No Redness ENT: No Ear pain, No Ear discharge, No Nose pain, No Nose discharge, No Nose congestion, No Mouth pain, No Mouth swelling, No Throat pain, No Throat swelling, No Other Cardiovascular: No Chest Pain, No Palpitations, No Orthopnea, No Paroxysmal Noc. Dyspnea, No Edema, No Lt Headedness, No Other Respiratory: No Cough, No Dry; Shortness of breath, SOB with excertion; No Wheezing, No Hemoptysis, No Pleuritic Pain, No Sputum; Other (SOB at rest) Gastrointestinal: No Nausea, No Vomiting, No Abdominal Pain, No Diarrhea, No Constipation, No Melena, No Hematochezia, No Other Genitourinary: No Dysuria, No Frequency, No Incontinence, No Hematuria, No Retention; Other (Edwards catheter in place) Musculoskeletal: No other, No neck pain, No shoulder pain, No arm pain, No back pain, No hand pain, No leg pain, No foot pain Skin: No Rash, No Lesions, No Jaundice, No Bruising, No Other Objective Vitals Vital Signs Date Time Temp Pulse Resp B/P (MAP) Pulse Ox O2 Delivery O2 Flow Rate FiO2 05/18/25 09:01 140/70 05/18/25 08:00 20 97 Mechanical Ventilator+ 30 30 05/18/25 07:15 98.1 77 208.6 Intake/Output Intake and Output 05/18/25 07:00 Intake Total 1474.128 ml Output Total 3300 ml Balance -1825.872 ml Intake Oral 90 ml IV Total 855.128 ml Tube Feeding 529 ml Output Urine Total 3300 ml # Bowel Movements 3 Exam General: RASS -3, afebrile, mucosae are moist Cardiovascular: Normal S1 and S2. No murmurs, gallops or rubs Respiratory: Mechanically assisted ventilation, equal bilateral airway entree. Rales and crackles in the right side Abdomen: Soft, nontender, no organomegaly, normal bowel sounds MSK/skin: Mobilization of limbs cannot be evaluated. Skin is dry and warm. Neurological: Orientation cannot be assessed. No apparent motor no sensitive deficits. Pupils are unequal, reactive left pupil, status post prosthesis of right eye Medications Current Medications Medications Dose Ordered Sig/Mikki Route Start Time Stop Time Status Last Admin Dose Admin Midazolam HCl 50 ml @ 1 mls/hr Q24H IV 05/14/25 01:15 05/18/25 03:44 3 MLS/HR Lactulose 30 ml BID PO 05/14/25 10:00 05/16/25 21:52 30 ML Fentanyl Citrate 250 ml @ 2.5 mls/hr Q24H IV 05/14/25 10:15 05/16/25 07:07 5 MLS/HR Cefepime HCl 50 ml @ 12.5 mls/hr Q12HR IV 05/14/25 22:00 05/17/25 21:52 12.5 MLS/HR Vancomycin HCl 0 ml @ 0 mls/hr UD IV 05/14/25 12:00 Pantoprazole Sodium 40 mg DAILY IV 05/15/25 10:00 05/17/25 09:41 40 MG Sodium Chloride 10 ml QSHIFT@10,22 IV 05/14/25 22:00 05/17/25 22:04 10 ML Phenylephrine HCl 80 mg/Sodium Chloride 250 ml @ 7.5 mls/hr Q24H IV 05/15/25 03:00 05/16/25 08:45 33.75 MLS/HR Vasopressin 20 units/Sodium Chloride 100 ml @ 9 mls/hr Q11H7M IV 05/15/25 08:00 05/18/25 08:57 9 MLS/HR Norepinephrine Bitartrate 32 mg/ Sodium Chloride 250 ml @ 0.938 mls/ hr Q24H IV 05/15/25 09:00 05/16/25 07:01 5.625 MLS/HR Thiamine HCl 100 mg DAILY IV 05/16/25 10:00 05/17/25 09:41 100 MG Dextrose 50 ml UD PRN IV 05/15/25 13:15 Cancel Epinephrine HCl 250 ml @ 7.5 mls/hr Q24H IV 05/15/25 13:45 05/15/25 14:20 7.5 MLS/HR Bumetanide 2.5 mg BIDD IV 05/15/25 18:00 05/18/25 05:33 2.5 MG Metronidazole 100 ml @ 100 mls/hr Q8HR IV 05/15/25 22:00 05/18/25 06:50 100 MLS/HR Hydrocortisone Sodium Succinate 50 mg Q6HR IV 05/15/25 18:00 05/18/25 05:33 50 MG Diagnostic Test (Pha) 1 strip Q6HR 05/15/25 18:00 05/18/25 05:35 1 STRIP Dextrose 50 ml UD PRN IV 05/15/25 16:45 Metoclopramide HCl 5 mg Q8HR IV 05/16/25 11:15 05/18/25 05:33 5 MG Enteral Nutritional Formula 1,000 ml 30ML/HR GT 05/17/25 07:15 05/17/25 12:05 1,000 ML Enoxaparin Sodium 80 mg Q12HR SC 05/17/25 22:00 05/17/25 21:52 80 MG Insulin Human Regular Q6HR SC 05/17/25 18:00 05/18/25 05:34 3 UNITS Purified Water 400 ml Q6HR GT 05/18/25 06:00 05/18/25 05:35 400 ML Laboratory Results Laboratory Tests 05/18/25 02:47 Chemistry Test 05/18/25 02:47 Albumin 2.7 g/dL (3.2-4.8) L Calcium Level 8.4 mg/dL (8.7-10.4) L Magnesium Level 1.9 mg/dL (1.6-2.6) Total Protein 5.9 g/dL (5.7-8.2) Coagulation Test 05/17/25 14:46 Prothrombin Time 12.7 sec (9.3-11.8) H Prothrombin Time INR 1.22 (0.9-1.15) H Cardiac Markers Test 05/17/25 12:58 B-Type Natriuretic Peptide 1574.43 pg/mL (0-100) LFT Test 05/18/25 02:47 Alanine Aminotransferase (ALT) 117 U/L (7-40) H Alkaline Phosphatase 462 U/L (46-116) H Aspartate Amino Transferase (AST) 128 U/L (13-40) H Total Bilirubin 2.1 mg/dL (0.2-1.0) H Urinalysis Test 05/13/25 23:30 05/16/25 10:35 Urine Color [place] (Yellow) H Urine Clarity Turbid (Clear) H Urine pH 5.5 (5.0-9.0) Urine Specific [place] 1.023 (1.001-1.035) Urine Protein 2+ (Negative) H Urine Ketones Negative (Negative) Urine Blood Trace /uL (Negative) H Urine Nitrite Negative (Negative) Urine Bilirubin 1+ (Negative) Urine Urobilinogen 6 mg/dL (Negative) Urine Leukocyte Esterase Negative /uL (Negative) Urine RBC 2 /hpf (0 - 3) Urine Microscopic WBC 7 /HPF (0-3) H Urine Squamous Epithelial Cells Few /hpf (<5) Urine Bacteria None seen /hpf (None Seen) Urine Hyaline Casts Few /lpf (0 - 2) Urine Mucus Few (None Seen) Urine Glucose Trace mg/dL (Normal) Urine Creatinine 32.74 mg/dL (30.0-125.0) Urine Sodium 76 mmol/L (40-220) Blood Gas Results Test 05/18/25 06:58 Arterial Blood pH 7.508 (7.350-7.450) FiO2 % 30.0 Microbiology Microbiology Date/Time Source Procedure Growth Status 05/14/25 08:24 Voided Urine Urine Culture - Final Complete 05/14/25 02:46 Nose MRSA Screen - Final Complete 05/14/25 01:18 Sputum Endotracheal Wash Gram Stain - Final Resulted 05/14/25 01:18 Sputum Endotracheal Wash Respiratory Culture - Preliminary Resulted 05/13/25 17:25 Blood Blood Culture - Preliminary NO GROWTH AFTER 72 HOURS OF INCUBATION. Resulted Labs and/or images reviewed: Labs reviewed by me, Image(s) reviewed by me Assessment/Plan Assessment/Plan NEURO: Acute Metabolic encephalopathy likely secondary to acute hypoxic respiratory failure, status post intubation unequal pupil likely due to right eye prosthesis RASS score: -3 CARDIOVASCULAR: Acute on chronic decompensated systolic heart failure cardiogenic shock/ septic shock secondary to above NSTEMI type 2 likely secondary to above -chest x-ray demonstrated right-sided pneumonia with pulmonary vascular congestion -BNP> 5000 and trops were mildly elevated and flat - Echo on 02/10 demonstrated EF 10% with end-stage dilated heart failure, RVSP 38 mm Hg - patient is on 4 pressors, maxed on norepinephrine and phenylephrine - Hold GDM T because of the pressor support in shock PULMONARY: Acute hypoxic respiratory failure secondary to exacerbation of CHF/ pneumonia right-sided Gram-positive versus Gram-negative community acquired pneumonia possible aspiration pneumonia Rule out lung malignancy - chest x-ray demonstrated right-sided pneumonia with pulmonary vascular congestion - pending respiratory culture and MRSA negative - IV vancomycin as per pharmacy and IV cefepime 1 g q.12 hours and IV metronidazole q8hr. 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 GENITOURINARY: Acute kidney injury likely secondary to shock - Nephrology on board and started bumex 2.5 mg IV bid. - strict I&O - monitor BMP ENDOCRINE: Hypoglycemia - started tube feeding with Jevity - monitor blood sugar closely METABOLIC: Moderate protein calorie malnutrition Hypernatremia - Free water deficit 2.4 L - Free water 200 mL GT q.6 hours HEME: Acute DVT of right upper arm Chronic microcytic hypochromic anemia likely due to anemia of chronic disease Thrombocytopenia likely due to cirrhosis - Doppler venous scan of the upper extremity showed deep vein thrombosis of right axillary and subclavian vein and thrombosis of left basilic vein - Started therapeutic Lovenox 1 milligram/kg body weight b.i.d. INFECTIOUS DISEASE: Right-sided Gram-positive/ Gram-negative community acquired pneumonia Possible aspiration pneumonia - chest x-ray demonstrated right-sided pneumonia with pulmonary vascular congestion - Preliminary blood cultures were unremarkable and MRSA negative - IV vancomycin as per pharmacy and IV cefepime 1 g q.12 hours and IV metronidazole q8hr. DIET: Glucerna DVT prophylax:Lovenox GI prophylaxis:Protonix Bowel regimen:Lactulose Code status: modified DNR, no chest compression LINES/DRAINS/ACCESS: Rt upper arm PICC line on 05/14 ETT: Intubated on 05/13/25 IV access: Rt upper arm PICC line on 05/14, rt femoral arterial line 05/15 Drips: Phenylephrine, vasopressin, fentanyl and Versed Edwards catheter: placed on 05/13/2025 DISPOSITION: ICU Plan discussed with: Other Date of Service: May 18, 2025 Billing Provider: WEI MELGAR MD Common Visit Codes: 11662-AEOZINOX CARE 30-74 MIN WEI MELGAR MD May 18, 2025 10:32
--- NOTE | 2025-05-18 11:08 | DVHNC2 ---
Procedure - Bronchoscopy procedure note: Indications: right lower lobe atelectasis, Possible mucous plugging. Medicines: See [employer] TE[employer] REPAIRER notes. Complications: None Procedure: Patient medications and allergies reviewed. The risks and benefits of the procedure and the sedation options and risk were discussed with the patient's healthcare proxy. All questions were answered and informed consent was obtained. Patient identification and proposed procedure were verified prior to the procedure by the physician, and a nurse, and the respiratory therapist in ICU room. The heart rate, respiratory rate, oxygen saturations, blood pressure, adequacy of pulmonary ventilation, and response to care were monitored throughout the procedure. The physical status of the patient was reassessed after the procedure. After obtaining informed consent, the bronchoscope was introduced through the endotracheal tube and advanced into the trachea bronchial tree of both lungs. The procedure was accomplished without difficulty. The patient tolerated the procedure well. Findings: The trachea is in normal caliber. The yimi is sharp. The tracheobronchial tree of the right lung was examined to at least the first subsegmental level. The bronchial mucosa and anatomy in the right lung are normal. There are no endobronchial lesions. There was copious whitish secretions from right main stem bronchus onward throughout R1-R10. Right middle lobe (RML) Bronchoalveolar lavage (BAL) obtained. RML BAL sent for gram stain and culture. The left upper lobe, lingula, and left lower lobe were examined to at least the first subsegmental level. Bronchial mucosa and anatomy in the left upper lobe and lingula are normal. There were no endobronchial lesions. There was copious whitish secretions from left main stem bronchus onward throughout L1-L10. Mucous plugging removed from L6-L10. There was no active bleeding at the completion of the procedure. Estimated blood loss: Less than 5 mL. Impression: Right lower lobe atelectasis due to mucous plugging Mucous plugging from L6-L10 and R1-R10 RML BAL performed Recommendation: Follow-up RML BAL results. Procedure codes: 28281, bronchoscopy, rigid and flexible, including fluoroscopic guidance, one performed; with bronchial endobronchial broncho-alveolar lavage, single or multiple sites ENMANUEL DANG MD May 18, 2025 11:08
--- NOTE | 2025-05-18 11:09 | DVH ---
CLINICAL HISTORY: S/P BRONCH TECHNIQUE: Single view of the chest was obtained. COMPARISON: XY CHEST PORTABLE on DOS: 05/18/25, XY CHEST PORTABLE on DOS: 05/17/25, XY CHEST PORTABLE o n DOS: 05/16/25, XY CHEST PORTABLE on DOS: 05/15/25, XY CHEST XRAY 1 VIEW on DOS: 05/14/25 FINDINGS: An endotracheal tube terminates 5 cm above the yimi. A right PICC terminates at the cable atrial ju nction. Initial gastric tube extends into the stomach and extends beyond the edge of the image. The h eart size and pulmonary vasculature are normal. There is an improving patchy right basilar opacity. IMPRESSION: Improving right lower lobe pneumonia and trace right pleural effusion.
[2025-05-18] MEDS: D5W 5% 1,000 ML IV SCH ×2 (12:09→18:00)
[2025-05-18] MEDS: VANCOMYCIN 750MG KIT 100 ML IV ONE (13:37)
--- NOTE | 2025-05-18 15:39 | DVHPN2 ---
Progress Note Date Seen: May 18, 2025 Has the PT tested + for MRSA If YES, has PT been informed?: No Medical Necessity Reason Pt with a Central, PICC or Fol: Yes The following are medically ne: PICC Line, Edwards Catheter Subjective Patient reports: Other (intubated) Review of Systems: Deferred Objective vital signs Vital Sign Date Time Temp Pulse Resp B/P (MAP) Pulse Ox O2 Delivery O2 Flow Rate FiO2 05/18/25 13:54 126/67 05/18/25 12:30 63 16 100 30 05/18/25 12:00 Mechanical Ventilator+ 05/18/25 07:15 98.1 208.6 Total Intake and Output 05/17/25 05/17/25 05/18/25 15:00 23:00 07:00 Intake Total 440.940 ml 657.938 ml 375.250 ml Output Total 1650 ml 1650 ml Balance 440.940 ml -992.062 ml -1274.750 ml medications Current Medications Medications Dose Ordered Sig/Mikki Route Start Time Stop Time Status Last Admin Dose Admin Midazolam HCl 50 ml @ 1 mls/hr Q24H IV 05/14/25 01:15 05/18/25 03:44 3 MLS/HR Lactulose 30 ml BID PO 05/14/25 10:00 05/16/25 21:52 30 ML Fentanyl Citrate 250 ml @ 2.5 mls/hr Q24H IV 05/14/25 10:15 05/16/25 07:07 5 MLS/HR Cefepime HCl 50 ml @ 12.5 mls/hr Q12HR IV 05/14/25 22:00 05/18/25 11:09 12.5 MLS/HR Vancomycin HCl 0 ml @ 0 mls/hr UD IV 05/14/25 12:00 Pantoprazole Sodium 40 mg DAILY IV 05/15/25 10:00 05/18/25 11:09 40 MG Sodium Chloride 10 ml QSHIFT@10,22 IV 05/14/25 22:00 05/18/25 10:00 10 ML Phenylephrine HCl 80 mg/Sodium Chloride 250 ml @ 7.5 mls/hr Q24H IV 05/15/25 03:00 05/16/25 08:45 33.75 MLS/HR Vasopressin 20 units/Sodium Chloride 100 ml @ 9 mls/hr Q11H7M IV 05/15/25 08:00 05/18/25 08:57 9 MLS/HR Norepinephrine Bitartrate 32 mg/ Sodium Chloride 250 ml @ 0.938 mls/ hr Q24H IV 05/15/25 09:00 05/16/25 07:01 5.625 MLS/HR Thiamine HCl 100 mg DAILY IV 05/16/25 10:00 05/18/25 11:09 100 MG Dextrose 50 ml UD PRN IV 05/15/25 13:15 Cancel Epinephrine HCl 250 ml @ 7.5 mls/hr Q24H IV 05/15/25 13:45 05/15/25 14:20 7.5 MLS/HR Bumetanide 2.5 mg BIDD IV 05/15/25 18:00 05/18/25 05:33 2.5 MG Metronidazole 100 ml @ 100 mls/hr Q8HR IV 05/15/25 22:00 05/18/25 14:59 100 MLS/HR Hydrocortisone Sodium Succinate 50 mg Q6HR IV 05/15/25 18:00 05/18/25 12:09 50 MG Diagnostic Test (Pha) 1 strip Q6HR 05/15/25 18:00 05/18/25 12:10 1 STRIP Dextrose 50 ml UD PRN IV 05/15/25 16:45 Metoclopramide HCl 5 mg Q8HR IV 05/16/25 11:15 05/18/25 13:43 5 MG Enteral Nutritional Formula 1,000 ml 30ML/HR GT 05/17/25 07:15 05/17/25 12:05 1,000 ML Enoxaparin Sodium 80 mg Q12HR SC 05/17/25 22:00 05/17/25 21:52 80 MG Insulin Human Regular Q6HR SC 05/17/25 18:00 05/18/25 12:17 3 UNITS Purified Water 200 ml Q6HR GT 05/18/25 12:00 05/18/25 12:10 200 ML Dextrose 1,000 ml @ 30 mls/hr Q24H IV 05/18/25 10:30 05/18/25 12:09 30 MLS/HR Examination: GENERAL:Abnormal, MSK:Abnormal, NEURO:Abnormal laboratory and microbiology Laboratory Tests 05/18/25 02:47 Test 05/18/25 02:47 Range/Units Serum Glucose 188 H 74-106 mg/dL Microbiology Date/Time Source Procedure Growth Status 05/14/25 08:24 Voided Urine Urine Culture - Final Complete 05/14/25 02:46 Nose MRSA Screen - Final Complete 05/14/25 01:18 Sputum Endotracheal Wash Gram Stain - Final Resulted 05/14/25 01:18 Sputum Endotracheal Wash Respiratory Culture - Preliminary Resulted 05/13/25 17:25 Blood Blood Culture - Preliminary NO GROWTH AFTER 72 HOURS OF INCUBATION. Resulted Problem List/Assessment/Plan Problem List/Assessment/Plan Assessment/plan # acute kidney injury likely in the setting of shock , related to acute tubular necrosis likely # hypernatremia # hypocalcemia, asymptomatic Corrected calcium 8.6 # acute hypoxic respiratory failure, on ventilator # shock, likely cardiogenic, possible septic shock component # acute HFrEF exacerbation # diabetes mellitus type 2 # history of liver disease # history of hypertension # hyperlipidemia Plan iv bumex bid on freewater and d5w iv for na correction broch today ct noted Plan discussed with: Other Dietary Evaluation Review Comments: 1. advance TF to Vital HP 55ml/hr providing 115g protwin, [id number] free water supporting pt's needs at 100% protein, 79% energy. 2. Reassess needs when Pt is off vent, and/or medically feasible for PO feedings. Expected Outcomes/Goals: maintain wt, avoid catablism LIZ DUMAS MD May 18, 2025 15:39
[2025-05-18 16:44] LABS: Anion Gap 10 (5-15); Carbon Dioxide 29 mmol/L (20-31)
[2025-05-18 16:49] LABS: BUN/Creatinine Ratio 26.2 (10.0-20.0)
[2025-05-18 17:34] LABS: Blood Urea Nitrogen 44 mg/dL (9-23); Calcium 8.3 mg/dL (8.7-10.4); Chloride 115 mmol/L (98-107); Glucose 184 mg/dL (74-106); Potassium 3.3 mmol/L (3.5-5.1); Sodium 154 mmol/L (136-145)
[2025-05-18] MEDS: POTASSIUM CHL 20MEQ/100ML 100 ML IV SCH (18:37)
--- NOTE | 2025-05-18 20:08 | DVHPN2 ---
Progress Note - Dictate Date Seen: May 18, 2025 Has the PT tested + for MRSA If YES, has PT been informed?: No Medical Necessity Reason Pt with a Central, PICC or Fol: Yes The following are medically ne: PICC Line, Edwards Catheter Subjective Mr. Mayberry is a 74 years old right-handed gentleman with a history of hypertension, diabetes, dyslipidemia, congestive heart failure on home oxygen, liver disease, he was brought to the [facility] on 05/13/2026 with a chief complaint of shortness of breath, in the hospital, the patient was found to have acute respiratory failure, combined metabolic respiratory acidosis, and was intubated in the emergency room. I have seen and examined the patient, I have talked to his nurse, he is intubated, responsive to strong painful stimuli, on pressor drip Fentanyl 75 mcg/hour, Versed 2 mg/hour, Levo 4 mg per hour, fentanyl 50 milligram/hour, Dobutamine 0 mcg/kg/min, neosyn 55 mcg, vasopressin 0.03 units/min Urinalysis, 05/13/2025: WBC: 7, urine leukocyte esterase: Negative ABG, 05/14/2025: Hypoxia, metabolic acidosis, 05/15/2025: Metabolic acidosis WBC/HB/PLT/MCV, 05/14/2025: 3.4/11.1/107/69.6, 05/15/25: 15.4/13.9/171/67 PT/INR/ABG, 05/14/2025: 12.2/1.71/35.8 BUN/CR, 05/14/2025: 21/1.69 GFR, 05/14/2025: 42 Lactic acid, 05/13/2025: 6.6, 8.3, 9.8 Glucose, 05/14/2025: 44, 40, 136, 116, 106 TBI/AST/ALT/AP, 05/14/2025: 2.5/84/52/209, : 149/170/95/158 Ammonia, 05/14/2025: 54 Vitamin B12, 01/24/2025: 941, 05/14/25: 776 Folic acid, 01/25/2025: 8.94, 05/14/25:9.29 TSH, 01/24/2025: 2.6, 05/14/2025: 4.19 Chest x-ray, 05/14/2025: 1. Adequately positioned endotracheal and enteric tubes new from prior exam. 2. Similar diffuse right and mild left basilar airspace disease. CT head, 05/14/2025: 1. No acute intracranial abnormality. 2. Right ocular lens prosthesis. 3. Mild periventricular and subcortical white matter disease likely related to sequelae of chronic microvascular ischemic changes although other etiologies are not excluded vital signs Vital Sign Date Time Temp Pulse Resp B/P (MAP) Pulse Ox O2 Delivery O2 Flow Rate FiO2 05/18/25 19:39 65 16 130/67 (88) 100 30 05/18/25 18:30 97.9 97.9 05/18/25 18:00 Mechanical Ventilator+ Total Intake and Output 05/17/25 05/17/25 05/18/25 15:00 23:00 07:00 Intake Total 440.940 ml 657.938 ml 496.625 ml Output Total 1650 ml 1650 ml Balance 440.940 ml -992.062 ml -1153.375 ml medications Current Medications Medications Dose Ordered Sig/Mikki Route Start Time Stop Time Status Last Admin Dose Admin Midazolam HCl 50 ml @ 1 mls/hr Q24H IV 05/14/25 01:15 05/18/25 03:44 3 MLS/HR Lactulose 30 ml BID PO 05/14/25 10:00 05/16/25 21:52 30 ML Fentanyl Citrate 250 ml @ 2.5 mls/hr Q24H IV 05/14/25 10:15 05/16/25 07:07 5 MLS/HR Cefepime HCl 50 ml @ 12.5 mls/hr Q12HR IV 05/14/25 22:00 05/18/25 11:09 12.5 MLS/HR Vancomycin HCl 0 ml @ 0 mls/hr UD IV 05/14/25 12:00 Pantoprazole Sodium 40 mg DAILY IV 05/15/25 10:00 05/18/25 11:09 40 MG Sodium Chloride 10 ml QSHIFT@10,22 IV 05/14/25 22:00 05/18/25 10:00 10 ML Phenylephrine HCl 80 mg/Sodium Chloride 250 ml @ 7.5 mls/hr Q24H IV 05/15/25 03:00 05/16/25 08:45 33.75 MLS/HR Vasopressin 20 units/Sodium Chloride 100 ml @ 9 mls/hr Q11H7M IV 05/15/25 08:00 05/18/25 08:57 9 MLS/HR Norepinephrine Bitartrate 32 mg/ Sodium Chloride 250 ml @ 0.938 mls/ hr Q24H IV 05/15/25 09:00 05/16/25 07:01 5.625 MLS/HR Thiamine HCl 100 mg DAILY IV 05/16/25 10:00 05/18/25 11:09 100 MG Dextrose 50 ml UD PRN IV 05/15/25 13:15 Cancel Epinephrine HCl 250 ml @ 7.5 mls/hr Q24H IV 05/15/25 13:45 05/15/25 14:20 7.5 MLS/HR Bumetanide 2.5 mg BIDD IV 05/15/25 18:00 05/18/25 17:57 2.5 MG Metronidazole 100 ml @ 100 mls/hr Q8HR IV 05/15/25 22:00 05/18/25 14:59 100 MLS/HR Hydrocortisone Sodium Succinate 50 mg Q6HR IV 05/15/25 18:00 05/18/25 17:56 50 MG Dextrose 50 ml UD PRN IV 05/15/25 16:45 Metoclopramide HCl 5 mg Q8HR IV 05/16/25 11:15 05/18/25 13:43 5 MG Enteral Nutritional Formula 1,000 ml 30ML/HR GT 05/17/25 07:15 05/17/25 12:05 1,000 ML Enoxaparin Sodium 80 mg Q12HR SC 05/17/25 22:00 05/17/25 21:52 80 MG Purified Water 200 ml Q6HR GT 05/18/25 12:00 05/18/25 17:58 200 ML Dextrose 1,000 ml @ 40 mls/hr Q24H IV 05/18/25 18:00 05/18/25 18:00 40 MLS/HR Potassium Chloride 100 ml @ 50 mls/hr Q2H IV 05/18/25 18:00 05/18/25 21:59 05/18/25 18:37 50 MLS/HR Diagnostic Test (Pha) 1 strip IQ4HR 05/18/25 20:00 Insulin Human Regular IQ4HR SC 05/18/25 20:00 objective The patient is well-nourished and well-developed with no distress. The patient is intubated MENTAL STATUS: Subjective CRANIAL NERVES: Pupils are round with the right pupil is bigger and nonreactive, left pupil is reactive.There is corneal reflexes and doll's eyes phenomenon. No signs of facial weakness. There are gagging or coughing reflexes SENSATION: No responses to pain stimuli. MOTOR: Normal tone in the upper and lower extremity. Normal muscle bulk. No fasciculations. No spontaneous movement in the extremities REFLEXES: Deep tendon reflexes are symmetrical. No pathological reflexes. CEREBELLAR/COORDINATION: Deferred GAIT/STATION: deferred. laboratory and microbiology Laboratory Tests 05/18/25 16:20 05/18/25 02:47 Test 05/18/25 16:20 Range/Units Serum Glucose 184 H 74-106 mg/dL Problem List Unequal pupil size, secondary to right prosthetic eye Coma Hypoxic encephalopathy Metabolic encephalopathy Hepatic encephalopathy Respiratory acidosis Metabolic acidosis Respiratory failure Cognitive dysfunction/mild cognitive impairment ? Alcohol related dementia/Korsakoff disease ? Alzheimer's dementia Liver failure ? Secondary to alcoholism ? Secondary to congestive heart failure Kidney failure Pneumonia Assessment/Plan Monitoring Supportive treatment ICU care Stabilize vitals Respiratory support/vent management Oxygen Bicarb IV drip IV fluids IV antibiotics Thiamine supplementation Cardiology evaluation Pulmonology evaluation More recommendation per clinical course This medical document was created using an electronic medical record system with [employer] dictation system. Although this document has been carefully reviewed, there may still be some phonetic and typographical errors. These areas are purely typographical due to imperfections of the software programs, and do not reflect any compromise in the patient's medical care Prognosis guarded Dietary Evaluation Review Comments: 1. advance TF to Vital HP 55ml/hr providing 115g protwin, [id number] free water supporting pt's needs at 100% protein, 79% energy. 2. Reassess needs when Pt is off vent, and/or medically feasible for PO feedings. Expected Outcomes/Goals: maintain wt, avoid catablism Plan discussed with: Other IZZY BOOKER MD May 18, 2025 20:08
[2025-05-18] MEDS: ACCU-CHEK COMFORT CURVE STRIP VI SCH (20:11)
[2025-05-18] MEDS: InsuLIN REG 1unit/0.01ml Soln (100units/ml) SC SCH (20:14)
--- NOTE | 2025-05-18 23:21 | DVHINCON2 ---
Date of service: May 18, 2025 Referring Physician Zainab Bone MD [facility] Reason for Consultation Acute hypoxic respiratory failure requiring mechanical ventilator and pneumonia. History of Present Illness A 74-year-old man with past medical history of CHF, diabetes mellitus, liver disease, hypertension, and hyperlipidemia who presented to ED on 05/13/25 with complaint of shortness of breath. Patient reported worsening shortness of breath with associated leg swelling and chest pressure since AM of presentation. Patie nt was on 87% on 2 L despite giving 2 DuoNeb treatments en route, placing him on a non-rebreather mask upon arrival. Patient was seen and evaluated in the ED hypoxic, increased work of breathing, desaturating on BiPAP, and subsequently intubated. Laboratory data showed WBC 3.4, hemoglobin 10.6, hematocrit 34.6, platelets 119, sodium 141, potassium 3.8, BUN 21, creatinine 1.28, glucose 87, calcium 8.8, BNP > 5000, troponin 87, lactic acid 8.3. Blood pressure was 126/80, heart rate 85, temperature 97.7 F, O2 saturation 96% ventilator. Chest x-ray revealed right-sided pneumonia worse than on previous exam. Patient was admitted for further care. Pulmonary consultation is requested for evaluation and management of acute hypoxic respiratory failure requiring mechanical ventilator and pneumonia. Review of Systems: 14-point review of systems negative unless otherwise noted above. Past Medical History CHF, DM, High Lipids, HTN, Liver Disease Past Surgical History PTCA Medications: Reviewed. Allergies: No known drug allergies. Family History: Hypertension and heart disease. Social History: Nonsmoker. No alcohol or illicit drug use. Family History: Hypertension G8 MOTHER Ischemic heart disease G8 MOTHER G8 FATHER Allergies: Coded Allergies: NO KNOWN ALLERGIES (Unverified , 01/11/25) Home Meds Active Scripts Empagliflozin (Jardiance) 10 Mg Tab, 10 MG PO DAILY for 30 Days, #30 TAB Prov:MENDOZA STANTON RESIDENT 01/29/25 Furosemide (Lasix) 40 Mg Tab, 40 MG PO DAILY for 30 Days, #30 TAB Prov:MENDOZA STANTON RESIDENT 01/29/25 Metoprolol Succinate (Metoprolol Succinate Er) 25 Mg Tab, 25 MG PO DAILY for 30 Days, #30 TAB Prov:MENDOZA STANTON RESIDENT 01/29/25 Spironolactone (Aldactone) 25 Mg Tab, 25 MG PO DAILY for 30 Days, #30 TAB Prov[facility] 01/29/25 Sacubitril-Valsartan (Entresto 24-26 mg) 1 Tab Tab, 1 TAB PO BID for 30 Days, #60 TAB Prov:[facility] 01/29/25 Ergocalciferol (VITAMIN D 86529 UNIT) 50,000 [place], [address] UNIT PO Q7D for 60 Days, #8 CAP Prov:[facility] [place] 01/29/25 Docusate Sodium (Docusate Sodium) 100 Mg Cap, 100 MG PO BIDPRN PRN for 30 Days, #60 CAP Prov:[facility] [place] 01/29/25 Atorvastatin Calcium (ATORVASTATIN CALCIUM) 20 Mg Tab, 40 MG PO HS for 30 Days, #30 TAB Prov:[facility] [place] 01/29/25 Aspirin (Aspirin Low Dose) 81 Mg Tab, 81 MG PO DAILY for 30 Days, #30 TAB Prov:[facility] [place] [facility] 01/29/25 Ondansetron Odt 4MG Tab (ZOFRAN PO) 4 Mg Tb, 4 MG PO QID PRN, #30 TAB ODT TAB-DISSOLVE IN MOUTH, THEN SWALLOW Prov:WILFRED CALL MD 01/14/25 Tramadol HCl (Tramadol HCl) 50 Mg Tab, 50 MG PO QID PRN, #40 TAB Prov:WILFRED CALL MD 01/14/25 Current Medications Current Medications Medications (Trade) Dose Ordered Sig/Mikki Route PRN Reason Start Time Stop Time Status Last Admin Purified Water 400 ml Q6HR GT 05/18/25 06:00 05/18/25 10:31 DC 05/18/25 05:35 Purified Water 200 ml Q6HR GT 05/18/25 12:00 05/18/25 17:58 Dextrose 1,000 ml @ 30 mls/hr Q24H IV 05/18/25 10:30 05/18/25 17:56 DC 05/18/25 12:09 Dextrose 1,000 ml @ 40 mls/hr Q24H IV 05/18/25 18:00 05/18/25 18:00 Potassium Chloride 100 ml @ 50 mls/hr Q2H IV 05/18/25 18:00 05/18/25 21:59 DC 05/18/25 20:11 Diagnostic Test (Pha) (Accu-Chek Comfort Curve T) 1 strip IQ4HR 05/18/25 20:00 05/18/25 20:11 Insulin Human Regular (InsuLIN R) IQ4HR SC 05/18/25 20:00 05/18/25 20:14 Vital Signs Vital Signs Date Time Temp Pulse Resp B/P (MAP) Pulse Ox O2 Delivery O2 Flow Rate FiO2 05/18/25 22:00 16 98 Mechanical Ventilator+ 30 30 05/18/25 22:00 68 05/18/25 21:59 112/57 (75) 05/18/25 20:45 96.3 205.3 Physical Exam Gen.: Patient lying in bed in medical ICU. Sedated, intubated on mechanical ventilator. Head: Normocephalic, atraumatic. Eyes: PERRLA. Ears: Normal external anatomy. Throat: Endotracheal tube and orogastric tube in place. Neck: Supple, trachea midline. Chest: Transmitted breath sounds bilaterally. Decreased air entry bilaterally. No wheezing. Bibasilar crackles. Cardiovascular: Positive S1, positive S2. Regular rate and rhythm. Abdomen: Positive bowel sounds in all 4 quadrants. Soft, nontender, nondistended. : Edwards in place. Normal external genitalia. Rectal: Deferred. Skin: Warm, dry. Intact. Extremities: 2+ radial pulses bilaterally. No lower extremity edema. Neuro: Sedated. Labs/Diagnostic Data Labs Test 05/18/25 20:09 05/18/25 16:20 05/18/25 06:58 05/18/25 02:47 Range/Units POC Glucose 181 H 70-106 mg/dl Sodium Level 154 H 136-145 mmol/L Potassium Level 3.3 L 3.5-5.1 mmol/L Chloride Level 115 H 98-107 mmol/L Carbon Dioxide Level 29 20-31 mmol/L Anion Gap 10 5-15 Blood Urea Nitrogen 44 H 9-23 mg/dL Creatinine 1.68 H 0.700-1.30 mg/dL Glomerular Filtration Rate Calc 43 >90 mL/min BUN/Creatinine Ratio 26.2 H 10.0-20.0 Serum Glucose 184 H 74-106 mg/dL Calcium Level 8.3 L 8.7-10.4 mg/dL Blood Gas Specimen Type Arterial Blood Gas Sample Site Left radial Blood Gas Patient Temperature 37.0 Arterial Blood Date Drawn [id number] Arterial Blood pH 7.508 H 7.350-7.450 Arterial Blood Partial Pressure CO2 35.5 35.0-48.0 mmHg Arterial Blood Partial Pressure O2 90.6 83.0-108.0 mmHg Arterial Blood HCO3 27.6 21.0-28.0 mmol/L Arterial Blood Oxygen Saturation 96.6 94.0-98.0 % Arterial Blood Base Excess 4.5 H -2.0-3.0 mmol/L Arterial Blood Oxyhemoglobin 95.7 94.0-98.0 % Arterial Blood Carboxyhemoglobin 0.8 0.5-1.5 % Arterial Blood Methemoglobin 0.1 0.0-1.5 % Cabrera Test Modified Blood Gas Total Hemoglobin 12.00 L 13.5-17.5 g/dL Blood Gas Set Respiration Rate 20.0 Blood Gas Modality Vent - ac FiO2 % 30.0 Blood Gas Tidal Volume 500.0 Blood Gas PEEP or CPAP 5.0 White Blood Count 11.7 H 4.4-10.8 10^3/uL Red Blood Count 5.48 4.5-5.90 10^6/uL Hemoglobin 11.6 L 13.5-17.5 g/dL Hematocrit 35.9 L 41.0-53.0 % Mean Corpuscular Volume 65.4 L 80.0-100.0 fL Mean Corpuscular Hemoglobin 21.1 L 28.0-32.0 pg Mean Corpuscular Hemoglobin Concent 32.2 32.0-36.0 g/dL Red Cell Distribution Width 18.9 H 11.8-14.3 % Platelet Count 60 L 140-450 10^3/uL Mean Platelet Volume 8.1 6.9-10.8 fL Neutrophils (%) (Auto) 37.0-80.0 % Lymphocytes (%) (Auto) 10.0-50.0 % Monocytes (%) (Auto) 0.0-12.0 % Basophils (%) (Auto) 0.0-2.0 % Neutrophils # (Auto) 1.6-8.6 10 ^3/uL Lymphocytes # (Auto) 0.4-5.4 10 ^3/uL Monocytes # (Auto) 0-1.3 10 ^3/uL Differential Total Cells Counted 100.0 100 Neutrophils % (Manual) 92 H 37.0-80.0 Band Neutrophils % (Manual) 0 Lymphocytes % (Manual) 6 L 10.0-50.0 Monocytes % (Manual) 2 0-12 Eosinophils % (Manual) 0 0-7 Basophils % (Manual) 0 0.0-2.0 Metamyelocytes % (manual) 0 Myelocytes % (Manual) 0 Promyelocytes % (Manual) 0 Blast Cells % (Manual) 0 Reactive Lymphocytes 0 Platelet Estimate Decreased Hypochromasia (manual) Moderate Microcytosis Marked Target Cells Few [place] Cells Few Hemoglobin A1c 5.5 <5.7 % A1C Magnesium Level 1.9 1.6-2.6 mg/dL Total Bilirubin 2.1 H 0.2-1.0 mg/dL Aspartate Amino Transferase (AST) 128 H 13-40 U/L Alanine Aminotransferase (ALT) 117 H 7-40 U/L Alkaline Phosphatase 462 H 46-116 U/L Total Protein 5.9 5.7-8.2 g/dL Albumin 2.7 L 3.2-4.8 g/dL Random Vancomycin Level 12.5 H 5-10 ug/mL Test 05/17/25 14:46 05/17/25 12:58 05/16/25 22:33 05/16/25 10:35 Range/Units Prothrombin Time 12.7 H 9.3-11.8 sec Prothrombin Time INR 1.22 H 0.9-1.15 Lactic Acid Level 2.4 *H 0.4-2.0 mmol/L B-Type Natriuretic Peptide 1574.43 0-100 pg/mL Eosinophils (%) (Auto) 0.0 0.0-7.0 % Eosinophils # (Auto) 0 0-0.8 10 ^3/uL Basophils # (Auto) 0 0-0.2 10 ^3/uL Nucleated Red Blood Cells 0.3 % Urine Creatinine 32.74 30.0-125.0 mg/dL Urine Sodium 76 40-220 mmol/L Test 05/16/25 03:00 05/15/25 04:21 05/14/25 18:40 05/14/25 04:00 Range/Units Carcinoembryonic Antigen 1.67 <=5.0 ng/mL CA 19-9 Antigen 29 0-35 U/mL Ammonia < 10 L 11-32 umol/L Tumor Marker Alpha Fetoprotein <1.8 0.0-8.4 ng/mL Blood Gas Spontaneous Rate 20 Blood Gas Spontaneous Tidal Volume 514 Bl Gas Inspiratory/Expiratory Ratio 1:2.3 Blood Gas Critical Value Read Back Yes Blood Gas Notified Whom [employer] Leadmargarito mansoorbreanna Blood Gas Notified Time [id number] Blood Gas Notified By Rt, mayte garcia Test 05/14/25 03:38 05/14/25 00:20 05/13/25 23:30 05/13/25 19:33 Range/Units Activated Partial Thromboplast Time 35.8 H 24.5-34.5 SEC Phosphorus Level 6.1 H 2.4-5.1 mg/dL Vitamin B12 Level 776 211-911 pg/mL Folic Acid 9.29 >5.38 ng/mL Thyroid Stimulating Hormone (TSH) 4.16 0.55-4.78 uIU/mL Free Thyroxine (T4) Calculated 0.99 0.89-1.76 ng/dL Blood Gas EPAP 5 Blood Gas IPAP 12 Urine Color [place] H Yellow Urine Clarity Turbid H Clear Urine pH 5.5 5.0-9.0 Urine Specific [place] 1.023 1.001-1.035 Urine Protein 2+ H Negative Urine Ketones Negative Negative Urine Blood Trace H Negative /uL Urine Nitrite Negative Negative Urine Bilirubin 1+ Negative Urine Urobilinogen 6 Negative mg/dL Urine Leukocyte Esterase Negative Negative /uL Urine RBC 2 0 - 3 /hpf Urine Microscopic WBC 7 H 0-3 /HPF Urine Squamous Epithelial Cells Few <5 /hpf Urine Bacteria None seen None Seen /hpf Urine Hyaline Casts Few 0 - 2 /lpf Urine Mucus Few None Seen Urine Glucose Trace Normal mg/dL Troponin I High Sensitivity 87 *H </=54 ng/L Microbiology Date/Time Source Procedure Growth Status 05/14/25 08:24 Voided Urine Urine Culture - Final Complete 05/14/25 02:46 Nose MRSA Screen - Final Complete 05/14/25 01:18 Sputum Endotracheal Wash Gram Stain - Final Resulted 05/14/25 01:18 Sputum Endotracheal Wash Respiratory Culture - Preliminary Resulted 05/13/25 17:25 Blood Blood Culture - Final NO GROWTH AFTER 5 DAYS OF INCUBATION. Complete Assessment Impression: Acute hypoxic respiratory failure On mechanical ventilator CHF exacerbation Acute metabolic encephalopathy Cardiogenic shock Pneumonia, possible GNR/GPC Acute kidney injury Lactic acidosis Atelectasis Plan: s/p intubation on mechanical ventilator. CXR image and report reviewed. Devices in place. Right lower lobe opacities. ABG reviewed, alkalemia. On AC mode; RR 20, VT 500, PEEP 5, FiO2 30% Taper RR to 16 BPM. Titrate FIO2 to keep O2 saturation above 90%. VAP bundle. Daily ABG and CXR while intubated Sedate for ventilator synchrony Follow up CT chest results. Increased ET tube secretions Plan for bronchoscopy to clear RLL secretions and mucous plugs. Continue antibiotics. F/u cultures. Blood cultures show no growth for 72 hours Continue stress dose steroids - hydrocortisone Continue vitamin supplementation On multiple pressors for hemodynamic support Levophed 4 mcg/min, Mike-Synephrine and vasopressin Titrate to keep mean arterial pressure greater than 65 mmHg. Therapeutic Lovenox IV fluids Monitor renal function Monitor electrolytes. Supplement as necessary. Monitor ins and outs. Check magnesium Maintain euvolemia. GI prophylaxis. DVT prophylaxis. Prognosis: Poor given patient's multiple co-morbidities. Condition: Critical Rest of plan per hospitalist and other consultants. A total of 35 minutes of critical care time was spent reviewing the patient record, examining the patient, making a diagnostic and therapeutic plan, discussing this plan with the medical personnel, following up on diagnostic studies and following the patient for clinical stability excluding any and all procedures. At least 50% of this time was spent in direct, [id number] contact. Thank you, Dr. Bone, for allowing me to participate in this patient's care. Further recommendations will depend on the patient's clinical course. Please do not hesitate to contact me if you have any questions or concerns. This medical document was created using an electronic medical record system with [employer] system. Although these documentations are being carefully reviewed, there may still be some phonetic and typographical changes. The errors are purely typographical, due to imperfection on the software program, and do not reflect any compromise in the patient's medical care. Plan discussed with: Daughter, Son, Other (ABEBA Farias/Dr. Bone) ENMANUEL DANG MD May 18, 2025 23:21
--- NOTE | 2025-05-18 23:23 | DVHPN2 ---
Progress Note - Dictate Date Seen: May 18, 2025 Has the PT tested + for MRSA If YES, has PT been informed?: No Medical Necessity Reason Pt with a Central, PICC or Fol: Yes The following are medically ne: PICC Line, Edwards Catheter Subjective Patient was seen and evaluated in follow-up in the ICU. Patient is intubated and sedated on ventilator. 30% FiO2. Patient is responsive to strong painful stimuli. Patient is on vasopressor fo hemodynamic support. Patient underwent successful bedside bronchoscopy by Dr. Lambert. Patient is planned for CPAP trial tomorrow. WBC 11.7, NA 154, K 3.3, CL 115, BUN 44, CYLINDER DEVALVER 1.68, CA 8.3. CT Chest ABD/PEL showed patchy right foot and left lower lobe opacities, favor infection / pneumonia. 3 vessel coronary artery calcifications. Pulmonary arterial hypertension. Trace right pleural effusion. Mild colonic diverticulosis. Extensive body wall edema, particularly at the visualized lower extremities. Chest x-ray showed improving right lower lobe pneumonia and trace right pleural effusion. vital signs Vital Sign Date Time Temp Pulse Resp B/P (MAP) Pulse Ox O2 Delivery O2 Flow Rate FiO2 05/18/25 22:00 16 98 Mechanical Ventilator+ 30 30 05/18/25 22:00 68 05/18/25 21:59 112/57 (75) 05/18/25 20:45 96.3 205.3 Total Intake and Output 05/17/25 05/17/25 05/18/25 15:00 23:00 07:00 Intake Total 440.940 ml 657.938 ml 496.625 ml Output Total 1650 ml 1650 ml Balance 440.940 ml -992.062 ml -1153.375 ml medications Current Medications Medications Dose Ordered Sig/Mikki Route Start Time Stop Time Status Last Admin Dose Admin Midazolam HCl 50 ml @ 1 mls/hr Q24H IV 05/14/25 01:15 05/18/25 03:44 3 MLS/HR Lactulose 30 ml BID PO 05/14/25 10:00 05/18/25 21:30 30 ML Fentanyl Citrate 250 ml @ 2.5 mls/hr Q24H IV 05/14/25 10:15 05/16/25 07:07 5 MLS/HR Cefepime HCl 50 ml @ 12.5 mls/hr Q12HR IV 05/14/25 22:00 05/18/25 21:31 12.5 MLS/HR Vancomycin HCl 0 ml @ 0 mls/hr UD IV 05/14/25 12:00 Pantoprazole Sodium 40 mg DAILY IV 05/15/25 10:00 05/18/25 11:09 40 MG Sodium Chloride 10 ml QSHIFT@10,22 IV 05/14/25 22:00 05/18/25 21:31 10 ML Phenylephrine HCl 80 mg/Sodium Chloride 250 ml @ 7.5 mls/hr Q24H IV 05/15/25 03:00 05/16/25 08:45 33.75 MLS/HR Vasopressin 20 units/Sodium Chloride 100 ml @ 9 mls/hr Q11H7M IV 05/15/25 08:00 05/18/25 08:57 9 MLS/HR Norepinephrine Bitartrate 32 mg/ Sodium Chloride 250 ml @ 0.938 mls/ hr Q24H IV 05/15/25 09:00 05/16/25 07:01 5.625 MLS/HR Thiamine HCl 100 mg DAILY IV 05/16/25 10:00 05/18/25 11:09 100 MG Dextrose 50 ml UD PRN IV 05/15/25 13:15 Cancel Epinephrine HCl 250 ml @ 7.5 mls/hr Q24H IV 05/15/25 13:45 05/15/25 14:20 7.5 MLS/HR Bumetanide 2.5 mg BIDD IV 05/15/25 18:00 05/18/25 17:57 2.5 MG Metronidazole 100 ml @ 100 mls/hr Q8HR IV 05/15/25 22:00 05/18/25 21:31 100 MLS/HR Hydrocortisone Sodium Succinate 50 mg Q6HR IV 05/15/25 18:00 05/18/25 17:56 50 MG Dextrose 50 ml UD PRN IV 05/15/25 16:45 Metoclopramide HCl 5 mg Q8HR IV 05/16/25 11:15 05/18/25 21:31 5 MG Enteral Nutritional Formula 1,000 ml 30ML/HR GT 05/17/25 07:15 05/17/25 12:05 1,000 ML Enoxaparin Sodium 80 mg Q12HR SC 05/17/25 22:00 05/18/25 21:32 80 MG Purified Water 200 ml Q6HR GT 05/18/25 12:00 05/18/25 17:58 200 ML Dextrose 1,000 ml @ 40 mls/hr Q24H IV 05/18/25 18:00 05/18/25 18:00 40 MLS/HR Diagnostic Test (Pha) 1 strip IQ4HR 05/18/25 20:00 05/18/25 20:11 1 STRIP Insulin Human Regular IQ4HR SC 05/18/25 20:00 05/18/25 20:14 3 UNITS objective GENERAL: Intubated on ventilator. EYES: PERRL, EOMI. Anicteric. HENT: Moist mucous membranes. LUNGS: Decreased breath sounds. CARDIOVASCULAR: Regular rate and rhythm. ABDOMEN: Distended. EXTREMITIES: No edema. NEUROLOGIC: No focal neurological deficits. SKIN: Warm, dry. 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 SCAI Shock Stage CD (classic/deteriorating cardiogenic shock). Killip IV (cardiogenic shock). Acute ischemic vs progressive dilated cardiomyopathy. Cardiogenic shock requiring pressors (dopamine + norepinephrine). Acute hypoxemic respiratory failure (intubated, FiO2 80%, PEEP 7) due to pneumonia + CHF. Right-sided pneumonia , sepsis physiology with lactic acidosis. SAPNA (KDIGO stage 12) from hypoperfusion, sepsis, diuresis. 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 Assessment/Plan Continued all current supportive medical care. GI and DVT prophylactics. Diuretics with Bumex. IV antibiotics as ordered. Vasopressors for hemodynamic support. Additional plan as per the hospital course. Critical care time of 45 minutes provided to include time spent evaluation of patient at bedside, when appropriate patient/family education for diagnosis, treatment plan, review of pertinent medical information and discussion of care with specialty providers and PCP.Mechanical ventilator parameters, treatment and adjustments have personally been reviewed by me and treatment plan by mortgage closer has also been reviewed. Dietary Evaluation Review Comments: 1. advance TF to Vital HP 55ml/hr providing 115g protwin, [id number] free water supporting pt's needs at 100% protein, 79% energy. 2. Reassess needs when Pt is off vent, and/or medically feasible for PO feedings. Expected Outcomes/Goals: maintain wt, avoid catablism Plan discussed with: Other RENATA PEDRAZA MD May 18, 2025 23:22
[2025-05-19] VITALS (107 sets, daily range): BP systolic 82–180; BP diastolic 49–97; PULSE 55–112; RESP 16–24; TEMP 97.7–99.3; O2SAT 92–100
[2025-05-19 04:21] LABS: Hematocrit 36.7 % (41.0-53.0); Hemoglobin 11.6 g/dL (13.5-17.5); Mean Corpuscular Hemoglobin 21.2 pg (28.0-32.0); Mean Corpuscular Volume 66.9 fL (80.0-100.0)
[2025-05-19 07:07] LABS: Base Excess 3.7 mmol/L (-2.0-3.0)
[2025-05-19 07:26] LABS: Anion Gap 13 (5-15); BUN/Creatinine Ratio 29.5 (10.0-20.0); Carbon Dioxide 27 mmol/L (20-31); Potassium 3.5 mmol/L (3.5-5.1); Total Protein 6.2 g/dL (5.7-8.2)
[2025-05-19 07:33] LABS: Alanine Aminotransferase 89 U/L (7-40); Albumin 2.8 g/dL (3.2-4.8); Alkaline Phosphatase 451 U/L (46-116); Bilirubin, Total 1.6 mg/dL (0.2-1.0); Blood Urea Nitrogen 49 mg/dL (9-23); Calcium 8.5 mg/dL (8.7-10.4); Chloride 115 mmol/L (98-107); Glucose 164 mg/dL (74-106); Sodium 155 mmol/L (136-145)
--- NOTE | 2025-05-19 07:47 | DVH ---
CHEST RADIOGRAPH Indication: Acute resp failure Technique: Single frontal view of the chest was obtained COMPARISON: XY CHEST XRAY 1 VIEW on DOS: 05/18/25, XY CHEST PORTABLE on DOS: 05/18/25, XY CHEST PORTABL E on DOS: 05/17/25, XY CHEST PORTABLE on DOS: 05/16/25, XY CHEST PORTABLE on DOS: 05/15/25 FINDINGS: Lines and Tubes: Endotracheal tube, right PICC and enteric catheter in satisfactory position Lungs: Right lower lobe airspace disease. Pleura: No effusion. No pneumothorax. Cardiomediastinal contours: Unremarkable Bones: Unremarkable IMPRESSION: Lines and tubes in satisfactory position. No significant interval change.
[2025-05-19 08:01] LABS: Anisocytosis Slight; Total Cells Counted 100.0 (100)
--- NOTE | 2025-05-19 08:50 | DVHPN2 ---
Progress Note Date Seen: May 19, 2025 Has the PT tested + for MRSA If YES, has PT been informed?: No Medical Necessity Reason Pt with a Central, PICC or Fol: Yes The following are medically ne: PICC Line, Edwards Catheter Subjective Patient reports: Other (Patient is intubated) Review of Systems: Deferred Objective vital signs Vital Sign Date Time Temp Pulse Resp B/P (MAP) Pulse Ox O2 Delivery O2 Flow Rate FiO2 05/19/25 08:31 98.2 96 16 124/77 (93) 98 208.8 05/19/25 06:12 30 05/19/25 05:44 Mechanical Ventilator+ Total Intake and Output 05/18/25 05/18/25 05/19/25 15:00 23:00 07:00 Intake Total 430.000 ml 1055.876 ml 519.125 ml Output Total 1525 ml 1150 ml Balance 430.000 ml -469.124 ml -630.875 ml medications Current Medications Medications Dose Ordered Sig/Mikki Route Start Time Stop Time Status Last Admin Dose Admin Midazolam HCl 50 ml @ 1 mls/hr Q24H IV 05/14/25 01:15 05/18/25 03:44 3 MLS/HR Lactulose 30 ml BID PO 05/14/25 10:00 05/18/25 21:30 30 ML Fentanyl Citrate 250 ml @ 2.5 mls/hr Q24H IV 05/14/25 10:15 05/16/25 07:07 5 MLS/HR Cefepime HCl 50 ml @ 12.5 mls/hr Q12HR IV 05/14/25 22:00 05/18/25 21:31 12.5 MLS/HR Vancomycin HCl 0 ml @ 0 mls/hr UD IV 05/14/25 12:00 Pantoprazole Sodium 40 mg DAILY IV 05/15/25 10:00 05/18/25 11:09 40 MG Sodium Chloride 10 ml QSHIFT@10,22 IV 05/14/25 22:00 05/18/25 21:31 10 ML Phenylephrine HCl 80 mg/Sodium Chloride 250 ml @ 7.5 mls/hr Q24H IV 05/15/25 03:00 05/16/25 08:45 33.75 MLS/HR Vasopressin 20 units/Sodium Chloride 100 ml @ 9 mls/hr Q11H7M IV 05/15/25 08:00 05/18/25 08:57 9 MLS/HR Norepinephrine Bitartrate 32 mg/ Sodium Chloride 250 ml @ 0.938 mls/ hr Q24H IV 05/15/25 09:00 05/16/25 07:01 5.625 MLS/HR Thiamine HCl 100 mg DAILY IV 05/16/25 10:00 05/18/25 11:09 100 MG Dextrose 50 ml UD PRN IV 05/15/25 13:15 Cancel Epinephrine HCl 250 ml @ 7.5 mls/hr Q24H IV 05/15/25 13:45 05/15/25 14:20 7.5 MLS/HR Bumetanide 2.5 mg BIDD IV 05/15/25 18:00 05/19/25 07:30 2.5 MG Metronidazole 100 ml @ 100 mls/hr Q8HR IV 05/15/25 22:00 05/19/25 06:25 100 MLS/HR Hydrocortisone Sodium Succinate 50 mg Q6HR IV 05/15/25 18:00 05/19/25 07:00 50 MG Dextrose 50 ml UD PRN IV 05/15/25 16:45 Metoclopramide HCl 5 mg Q8HR IV 05/16/25 11:15 05/19/25 06:26 5 MG Enteral Nutritional Formula 1,000 ml 30ML/HR GT 05/17/25 07:15 05/17/25 12:05 1,000 ML Enoxaparin Sodium 80 mg Q12HR SC 05/17/25 22:00 05/18/25 21:32 80 MG Purified Water 200 ml Q6HR GT 05/18/25 12:00 05/19/25 06:25 200 ML Dextrose 1,000 ml @ 40 mls/hr Q24H IV 05/18/25 18:00 05/18/25 18:00 40 MLS/HR Diagnostic Test (Pha) 1 strip IQ4HR 05/18/25 20:00 05/19/25 07:40 1 STRIP Insulin Human Regular IQ4HR SC 05/18/25 20:00 05/19/25 07:41 2 UNITS Examination: GENERAL:Abnormal, LUNGS:Abnormal, MSK:Abnormal, NEURO:Abnormal laboratory and microbiology Laboratory Tests 05/19/25 03:30 Test 05/19/25 03:30 Range/Units Serum Glucose 164 H 74-106 mg/dL Microbiology Date/Time Source Procedure Growth Status 05/14/25 08:24 Voided Urine Urine Culture - Final Complete 05/14/25 02:46 Nose MRSA Screen - Final Complete 05/14/25 01:18 Sputum Endotracheal Wash Gram Stain - Final Resulted 05/14/25 01:18 Sputum Endotracheal Wash Respiratory Culture - Preliminary Resulted 05/13/25 17:25 Blood Blood Culture - Final NO GROWTH AFTER 5 DAYS OF INCUBATION. Complete Problem List/Assessment/Plan Problem List/Assessment/Plan Assessment/plan # acute kidney injury likely in the setting of shock , # hypernatremia # acute hypoxic respiratory failure, on ventilator # shock, likely cardiogenic, possible septic shock component # acute HFrEF exacerbation # diabetes mellitus type 2 # history of liver disease # history of hypertension # hyperlipidemia Plan iv bumex bid on freewater and d5w iv for na correction--increase D5W to 50 cc Nonoliguric renal function is improving Plan discussed with: Other My Orders My Orders Orders - LIZ DUMAS MD Procedure Category Date Status Time D5w 5% PHA 05/19/25 Verified 09:00 Dietary Evaluation Review Comments: 1. advance TF to Vital HP 55ml/hr providing 115g protwin, [id number] free water supporting pt's needs at 100% protein, 79% energy. 2. Reassess needs when Pt is off vent, and/or medically feasible for PO feedings. Expected Outcomes/Goals: maintain wt, avoid catablism LIZ DUMAS MD May 19, 2025 08:50
[2025-05-19] MEDS: D5W 5% 1,000 ML IV SCH (09:00)
[2025-05-19] MEDS: DEXMEDETOMIDINE HCL IN D5W 100 ML IV SCH (09:45)
--- NOTE | 2025-05-19 10:24 | DVHPN2 ---
Subjective This is a 74-year-old male with past medical history of CHF on home O2 2 to 3L, diabetes mellitus, liver disease, hypertension, and hyperlipidemia who presented to [facility] ED with complaint of shortness of breaths. Patient reports that he has been experiencing worsening shortness of breaths with associated leg swelling and chest pressure since this morning. Patient was on 87% on 2L despite giving 2 DuoNeb treatments en route, placing him on a non- rebreather mask upon arrival. in the ED patient was hypoxic, increased work of breathing, desaturating on BiPAP and subsequently intubated. 05/17: he is on mechanical ventilation with FiO2 40%, tidal volume 500 mL, peep 5, respiratory rate 20. BP was relatively stable than yesterday and right now on 2 pressors. Urine Output is significantly improved than yesterday . 05/18: Patient intubated ventilated. Getting bronch this morning with pulmonology. Getting TPN feeds. Drips include Versed 3, Levophed quad at 4, fentanyl 75, weaning vasopressin 0.01. Ventilated settings a.c./16/5 100/30%/5.0. Making good urine output on Bumex, patient has CHF. Patient has hypernatremia we are changing free water from 400-200 q.6 and adding D5W at 30 cc hour and making BNP b.i.d. to monitor potassium as insulin we will be needed patient is diabetic and getting D5W now. Vital signs stable map 88, otherwise continue primary team's management. 05/19: Today patient is getting CPAP trial, following commands minimally. Still appears euvolemic. Hyponatremia 155 nephrology following,? Diabetes insipidus? As D5W and free water pushes are not improving sodium. Drips include levo quad 2, sedation is off on spontaneous vital signs stable good urine output. Continue primary team's management. Reviewed: Care Plan Changes from previous H/P or p: No Changes General: Per HPI Eyes: No Pain, No Vision change, No Conjunctivae inflammation, No Eyelid inflammation, No Other, No Redness ENT: No Ear pain, No Ear discharge, No Nose pain, No Nose discharge, No Nose congestion, No Mouth pain, No Mouth swelling, No Throat pain, No Throat swelling, No Other Cardiovascular: No Chest Pain, No Palpitations, No Orthopnea, No Paroxysmal Noc. Dyspnea, No Edema, No Lt Headedness, No Other Respiratory: No Cough, No Dry; Shortness of breath, SOB with excertion; No Wheezing, No Hemoptysis, No Pleuritic Pain, No Sputum; Other (SOB at rest) Gastrointestinal: No Nausea, No Vomiting, No Abdominal Pain, No Diarrhea, No Constipation, No Melena, No Hematochezia, No Other Genitourinary: No Dysuria, No Frequency, No Incontinence, No Hematuria, No Retention; Other (Edwards catheter in place) Musculoskeletal: No other, No neck pain, No shoulder pain, No arm pain, No back pain, No hand pain, No leg pain, No foot pain Skin: No Rash, No Lesions, No Jaundice, No Bruising, No Other Objective Vitals Vital Signs Date Time Temp Pulse Resp B/P (MAP) Pulse Ox O2 Delivery O2 Flow Rate FiO2 05/19/25 10:03 91 16 135/65 (88) 99 30 05/19/25 08:31 98.2 208.8 05/19/25 08:00 Mechanical Ventilator+ Intake/Output Intake and Output 05/19/25 07:00 Intake Total 2005.001 ml Output Total 2675 ml Balance -669.999 ml Intake Oral 475 ml IV Total 1180.001 ml Tube Feeding 350 ml Output Urine Total 2675 ml Exam General: RASS -3, afebrile, mucosae are moist Cardiovascular: Normal S1 and S2. No murmurs, gallops or rubs Respiratory: Mechanically assisted ventilation, equal bilateral airway entree. Rales and crackles in the right side Abdomen: Soft, nontender, no organomegaly, normal bowel sounds MSK/skin: Mobilization of limbs cannot be evaluated. Skin is dry and warm. Neurological: Orientation cannot be assessed. No apparent motor no sensitive deficits. Pupils are unequal, reactive left pupil, status post prosthesis of right eye Medications Current Medications Medications Dose Ordered Sig/Mikki Route Start Time Stop Time Status Last Admin Dose Admin Midazolam HCl 50 ml @ 1 mls/hr Q24H IV 05/14/25 01:15 05/18/25 03:44 3 MLS/HR Lactulose 30 ml BID PO 05/14/25 10:00 05/19/25 09:54 30 ML Fentanyl Citrate 250 ml @ 2.5 mls/hr Q24H IV 05/14/25 10:15 05/16/25 07:07 5 MLS/HR Cefepime HCl 50 ml @ 12.5 mls/hr Q12HR IV 05/14/25 22:00 05/19/25 09:54 12.5 MLS/HR Vancomycin HCl 0 ml @ 0 mls/hr UD IV 05/14/25 12:00 Pantoprazole Sodium 40 mg DAILY IV 05/15/25 10:00 05/19/25 09:54 40 MG Sodium Chloride 10 ml QSHIFT@10,22 IV 05/14/25 22:00 05/19/25 09:54 10 ML Phenylephrine HCl 80 mg/Sodium Chloride 250 ml @ 7.5 mls/hr Q24H IV 05/15/25 03:00 05/16/25 08:45 33.75 MLS/HR Vasopressin 20 units/Sodium Chloride 100 ml @ 9 mls/hr Q11H7M IV 05/15/25 08:00 05/18/25 08:57 9 MLS/HR Norepinephrine Bitartrate 32 mg/ Sodium Chloride 250 ml @ 0.938 mls/ hr Q24H IV 05/15/25 09:00 05/16/25 07:01 5.625 MLS/HR Thiamine HCl 100 mg DAILY IV 05/16/25 10:00 05/19/25 09:54 100 MG Dextrose 50 ml UD PRN IV 05/15/25 13:15 Cancel Epinephrine HCl 250 ml @ 7.5 mls/hr Q24H IV 05/15/25 13:45 05/15/25 14:20 7.5 MLS/HR Bumetanide 2.5 mg BIDD IV 05/15/25 18:00 05/19/25 07:30 2.5 MG Metronidazole 100 ml @ 100 mls/hr Q8HR IV 05/15/25 22:00 05/19/25 06:25 100 MLS/HR Hydrocortisone Sodium Succinate 50 mg Q6HR IV 05/15/25 18:00 05/19/25 07:00 50 MG Dextrose 50 ml UD PRN IV 05/15/25 16:45 Metoclopramide HCl 5 mg Q8HR IV 05/16/25 11:15 05/19/25 06:26 5 MG Enteral Nutritional Formula 1,000 ml 30ML/HR GT 05/17/25 07:15 05/17/25 12:05 1,000 ML Enoxaparin Sodium 80 mg Q12HR SC 05/17/25 22:00 05/19/25 09:54 80 MG Purified Water 200 ml Q6HR GT 05/18/25 12:00 05/19/25 06:25 200 ML Diagnostic Test (Pha) 1 strip IQ4HR 05/18/25 20:00 05/19/25 07:40 1 STRIP Insulin Human Regular IQ4HR SC 05/18/25 20:00 05/19/25 07:41 2 UNITS Dextrose 1,000 ml @ 50 mls/hr Q20H IV 05/19/25 09:00 05/19/25 09:00 50 MLS/HR Laboratory Results Laboratory Tests 05/19/25 03:30 Chemistry Test 05/18/25 16:20 05/19/25 03:30 Calcium Level 8.3 mg/dL (8.7-10.4) L 8.5 mg/dL (8.7-10.4) L Albumin 2.8 g/dL (3.2-4.8) L Total Protein 6.2 g/dL (5.7-8.2) LFT Test 05/19/25 03:30 Alanine Aminotransferase (ALT) 89 U/L (7-40) H Alkaline Phosphatase 451 U/L (46-116) H Aspartate Amino Transferase (AST) 87 U/L (13-40) H Total Bilirubin 1.6 mg/dL (0.2-1.0) H Urinalysis Test 05/13/25 23:30 05/16/25 10:35 Urine Color [place] (Yellow) H Urine Clarity Turb[place] (Clear) H Urine pH 5.5 (5.0-9.0) Urine Specific [place] 1.023 (1.001-1.035) Urine Protein 2+ (Negative) H Urine Ketones Negative (Negative) Urine Blood Trace /uL (Negative) H Urine Nitrite Negative (Negative) Urine Bilirubin 1+ (Negative) Urine Urobilinogen 6 mg/dL (Negative) Urine Leukocyte Esterase Negative /uL (Negative) Urine RBC 2 /hpf (0 - 3) Urine Microscopic WBC 7 /HPF (0-3) H Urine Squamous Epithelial Cells Few /hpf (<5) Urine Bacteria None seen /hpf (None Seen) Urine Hyaline Casts Few /lpf (0 - 2) Urine Mucus Few (None Seen) Urine Glucose Trace mg/dL (Normal) Urine Creatinine 32.74 mg/dL (30.0-125.0) Urine Sodium 76 mmol/L (40-220) Blood Gas Results Test 05/19/25 06:55 Arterial Blood pH 7.454 (7.350-7.450) FiO2 % 30.0 Microbiology Microbiology Date/Time Source Procedure Growth Status 05/14/25 08:24 Voided Urine Urine Culture - Final Complete 05/14/25 02:46 Nose MRSA Screen - Final Complete 05/14/25 01:18 Sputum Endotracheal Wash Gram Stain - Final Resulted 05/14/25 01:18 Sputum Endotracheal Wash Respiratory Culture - Preliminary Resulted 05/13/25 17:25 Blood Blood Culture - Final NO GROWTH AFTER 5 DAYS OF INCUBATION. Complete Labs and/or images reviewed: Labs reviewed by me, Image(s) reviewed by me Assessment/Plan Assessment/Plan NEURO: Acute Metabolic encephalopathy likely secondary to acute hypoxic respiratory failure, status post intubation unequal pupil likely due to right eye prosthesis RASS score: -3 CARDIOVASCULAR: Acute on chronic decompensated systolic heart failure cardiogenic shock/ septic shock secondary to above NSTEMI type 2 likely secondary to above -chest x-ray demonstrated right-sided pneumonia with pulmonary vascular congestion -BNP> 5000 and trops were mildly elevated and flat - Echo on 02/10 demonstrated EF 10% with end-stage dilated heart failure, RVSP 38 mm Hg - patient is on 4 pressors, maxed on norepinephrine and phenylephrine - Hold GDM T because of the pressor support in shock PULMONARY: Acute hypoxic respiratory failure secondary to exacerbation of CHF/ pneumonia right-sided Gram-positive versus Gram-negative community acquired pneumonia possible aspiration pneumonia Rule out lung malignancy - chest x-ray demonstrated right-sided pneumonia with pulmonary vascular congestion - pending respiratory culture and MRSA negative - IV vancomycin as per pharmacy and IV cefepime 1 g q.12 hours and IV metronidazole q8hr. 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 GENITOURINARY: Acute kidney injury likely secondary to shock - Nephrology on board and started bumex 2.5 mg IV bid. - strict I&O - monitor BMP ENDOCRINE: Hypoglycemia - started tube feeding with Jevity - monitor blood sugar closely METABOLIC: Moderate protein calorie malnutrition Hypernatremia - Free water deficit 2.4 L - Free water 200 mL GT q.6 hours HEME: Acute DVT of right upper arm Chronic microcytic hypochromic anemia likely due to anemia of chronic disease Thrombocytopenia likely due to cirrhosis - Doppler venous scan of the upper extremity showed deep vein thrombosis of right axillary and subclavian vein and thrombosis of left basilic vein - Started therapeutic Lovenox 1 milligram/kg body weight b.i.d. INFECTIOUS DISEASE: Right-sided Gram-positive/ Gram-negative community acquired pneumonia Possible aspiration pneumonia - chest x-ray demonstrated right-sided pneumonia with pulmonary vascular congestion - Preliminary blood cultures were unremarkable and MRSA negative - IV vancomycin as per pharmacy and IV cefepime 1 g q.12 hours and IV metronidazole q8hr. DIET: Glucerna DVT prophylax:Lovenox GI prophylaxis:Protonix Bowel regimen:Lactulose Code status: modified DNR, no chest compression LINES/DRAINS/ACCESS: Rt upper arm PICC line on 05/14 ETT: Intubated on 05/13/25 IV access: Rt upper arm PICC line on 05/14, rt femoral arterial line 05/15 Drips: Phenylephrine, vasopressin, fentanyl and Versed Edwards catheter: placed on 05/13/2025 DISPOSITION: ICU Plan discussed with: Other My Orders Orders - WEI MELGAR MD Procedure Category Date Status Time Free Water PHA 05/18/25 In Process 12:00 Glucose Blood PHA 05/18/25 In Process (Accu-Chek Comfort 20:00 Insulin R (Human) PHA 05/18/25 In Process (Insulin R) 20:00 Chest Portable XY 05/19/25 Resulted 04:00 Dexmedetomidine Hcl PHA 05/19/25 In Process In D5w (Precedex) 09:45 Date of Service: May 19, 2025 Billing Provider: WEI MELGAR MD Common Visit Codes: [id number] CARE 30-74 MIN WEI MELGAR MD May 19, 2025 10:24
--- NOTE | 2025-05-19 11:00 | MEDREC ---
[facility] ASP Intervention Section I [facility] ASP Intervention: Deescalate AB based on CS (PLEASE CONSIDER D/C VANCOMYCIN - NARES SCREENING FOR MRSA HAS A HIGH SPECIFICITY AND NEGATIVE PREDICTIVE VALUE FOR RULING OUT MRSA PNEUMONIA, PARTICULARLY IN CASES OF CAP BASED ON THE NEGATIVE PREDICITVE VALUE AND THE MRSA NARES NEGATIVE PLEASE CONSIDER D/C V ANCOMYCIN - PER ATS/IDSA PER GUIDELINE DO NOT ROUTINELY ADD ANAEROBIC COVERAGE FOR SUSPECTED ASPIRATION PNEUMONIA UNLESS LUNG ABSCESS OR EMPYEMA IS SUSPECTED ) HARIS TAVARES PHARMACIST May 19, 2025 11:00
[2025-05-19 11:54] LABS: Anion Gap 10 (5-15); BUN/Creatinine Ratio 28.8 (10.0-20.0); Carbon Dioxide 31 mmol/L (20-31); Total Protein 6.4 g/dL (5.7-8.2)
[2025-05-19 11:57] LABS: Alanine Aminotransferase 87 U/L (7-40); Albumin 2.9 g/dL (3.2-4.8); Alkaline Phosphatase 467 U/L (46-116); Bilirubin, Total 1.7 mg/dL (0.2-1.0); Blood Urea Nitrogen 46 mg/dL (9-23); Calcium 8.5 mg/dL (8.7-10.4); Chloride 113 mmol/L (98-107); Glucose 138 mg/dL (74-106); Potassium 3.2 mmol/L (3.5-5.1); Sodium 154 mmol/L (136-145)
--- NOTE | 2025-05-19 13:11 | DVHPN2 ---
Progress Note - Dictate Date Seen: May 19, 2025 Has the PT tested + for MRSA If YES, has PT been informed?: No Medical Necessity Reason Pt with a Central, PICC or Fol: Yes The following are medically ne: PICC Line, Edwards Catheter Subjective Mr. Mayberry is a 74 years old right-handed gentleman with a history of hypertension, diabetes, dyslipidemia, congestive heart failure on home oxygen, liver disease, he was brought to the [facility] on 05/13/2026 with a chief complaint of shortness of breath, in the hospital, the patient was found to have acute respiratory failure, combined metabolic respiratory acidosis, and was intubated in the emergency room. I have seen and examined the patient, I have talked to his nurse, family in the room he is intubated, awake, he follow verbal commands Urinalysis, 05/13/2025: WBC: 7, urine leukocyte esterase: Negative ABG, 05/14/2025: Hypoxia, metabolic acidosis, 05/15/2025: Metabolic acidosis WBC/HB/PLT/MCV, 05/14/2025: 3.4/11.1/107/69.6, 05/15/25: 15.4/13.9/171/67 PT/INR/ABG, 05/14/2025: 12.2/1.71/35.8 BUN/CR, 05/14/2025: 21/1.69 GFR, 05/14/2025: 42 Lactic acid, 05/13/2025: 6.6, 8.3, 9.8 Glucose, 05/14/2025: 44, 40, 136, 116, 106 TBI/AST/ALT/AP, 05/14/2025: 2.5/84/52/209, : 149/170/95/158 Ammonia, 05/14/2025: 54 Vitamin B12, 01/24/2025: 941, 05/14/25: 776 Folic acid, 01/25/2025: 8.94, 05/14/25:9.29 TSH, 01/24/2025: 2.6, 05/14/2025: 4.19 Chest x-ray, 05/14/2025: 1. Adequately positioned endotracheal and enteric tubes new from prior exam. 2. Similar diffuse right and mild left basilar airspace disease. CT head, 05/14/2025: 1. No acute intracranial abnormality. 2. Right ocular lens prosthesis. 3. Mild periventricular and subcortical white matter disease likely related to sequelae of chronic microvascular ischemic changes although other etiologies are not excluded vital signs Vital Sign Date Time Temp Pulse Resp B/P (MAP) Pulse Ox O2 Delivery O2 Flow Rate FiO2 05/19/25 12:00 98.2 85 16 143/82 (102) 97 208.8 05/19/25 11:45 30 05/19/25 08:00 Mechanical Ventilator+ Total Intake and Output 05/18/25 05/18/25 05/19/25 15:00 23:00 07:00 Intake Total 430.000 ml 1055.876 ml 519.125 ml Output Total 1525 ml 1150 ml Balance 430.000 ml -469.124 ml -630.875 ml medications Current Medications Medications Dose Ordered Sig/Mikki Route Start Time Stop Time Status Last Admin Dose Admin Midazolam HCl 50 ml @ 1 mls/hr Q24H IV 05/14/25 01:15 05/18/25 03:44 3 MLS/HR Lactulose 30 ml BID PO 05/14/25 10:00 05/19/25 09:54 30 ML Fentanyl Citrate 250 ml @ 2.5 mls/hr Q24H IV 05/14/25 10:15 05/16/25 07:07 5 MLS/HR Cefepime HCl 50 ml @ 12.5 mls/hr Q12HR IV 05/14/25 22:00 05/19/25 09:54 12.5 MLS/HR Vancomycin HCl 0 ml @ 0 mls/hr UD IV 05/14/25 12:00 Pantoprazole Sodium 40 mg DAILY IV 05/15/25 10:00 05/19/25 09:54 40 MG Sodium Chloride 10 ml QSHIFT@10,22 IV 05/14/25 22:00 05/19/25 09:54 10 ML Phenylephrine HCl 80 mg/Sodium Chloride 250 ml @ 7.5 mls/hr Q24H IV 05/15/25 03:00 05/16/25 08:45 33.75 MLS/HR Vasopressin 20 units/Sodium Chloride 100 ml @ 9 mls/hr Q11H7M IV 05/15/25 08:00 05/18/25 08:57 9 MLS/HR Norepinephrine Bitartrate 32 mg/ Sodium Chloride 250 ml @ 0.938 mls/ hr Q24H IV 05/15/25 09:00 05/16/25 07:01 5.625 MLS/HR Thiamine HCl 100 mg DAILY IV 05/16/25 10:00 05/19/25 09:54 100 MG Dextrose 50 ml UD PRN IV 05/15/25 13:15 Cancel Epinephrine HCl 250 ml @ 7.5 mls/hr Q24H IV 05/15/25 13:45 05/15/25 14:20 7.5 MLS/HR Bumetanide 2.5 mg BIDD IV 05/15/25 18:00 05/19/25 07:30 2.5 MG Metronidazole 100 ml @ 100 mls/hr Q8HR IV 05/15/25 22:00 05/19/25 06:25 100 MLS/HR Hydrocortisone Sodium Succinate 50 mg Q6HR IV 05/15/25 18:00 05/19/25 11:38 50 MG Dextrose 50 ml UD PRN IV 05/15/25 16:45 Metoclopramide HCl 5 mg Q8HR IV 05/16/25 11:15 05/19/25 06:26 5 MG Enteral Nutritional Formula 1,000 ml 30ML/HR GT 05/17/25 07:15 05/17/25 12:05 1,000 ML Enoxaparin Sodium 80 mg Q12HR SC 05/17/25 22:00 05/19/25 09:54 80 MG Purified Water 200 ml Q6HR GT 05/18/25 12:00 05/19/25 11:38 200 ML Diagnostic Test (Pha) 1 strip IQ4HR 05/18/25 20:00 05/19/25 11:38 1 STRIP Insulin Human Regular IQ4HR SC 05/18/25 20:00 05/19/25 11:44 2 UNITS Dextrose 1,000 ml @ 50 mls/hr Q20H IV 05/19/25 09:00 05/19/25 09:00 50 MLS/HR Hydralazine HCl 10 mg Q6HP PRN IV 05/19/25 12:00 objective The patient is well-nourished and well-developed with no distress. The patient is intubated MENTAL STATUS: Subjective CRANIAL NERVES: Pupils are round with the right pupil is bigger and nonreactive, left pupil is reactive. He has conjugated eye movement. No signs of facial weakness. There are gagging or coughing reflexes during oral care SENSATION: Responsive to painful stimuli MOTOR: Normal tone in the upper and lower extremity. Normal muscle bulk. No fasciculations. Moves the bilateral toes REFLEXES: Deep tendon reflexes are symmetrical. CEREBELLAR/COORDINATION: Deferred GAIT/STATION: deferred. laboratory and microbiology Laboratory Tests 05/19/25 10:46 05/19/25 03:30 Test 05/19/25 10:46 Range/Units Serum Glucose 138 H 74-106 mg/dL Problem List Unequal pupil size, secondary to right prosthetic eye Coma Hypoxic encephalopathy Metabolic encephalopathy Hepatic encephalopathy Respiratory acidosis Metabolic acidosis Respiratory failure Cognitive dysfunction/mild cognitive impairment ? Alcohol related dementia/Korsakoff disease ? Alzheimer's dementia Liver failure ? Secondary to alcoholism ? Secondary to congestive heart failure Kidney failure Pneumonia Assessment/Plan Monitoring Supportive treatment ICU care Stabilize vitals Respiratory support/vent management Oxygen Bicarb IV drip IV fluids IV antibiotics Thiamine supplementation Cardiology evaluation Pulmonology evaluation More recommendation per clinical course This medical document was created using an electronic medical record system with [employer] dictation system. Although this document has been carefully reviewed, there may still be some phonetic and typographical errors. These areas are purely typographical due to imperfections of the software programs, and do not reflect any compromise in the patient's medical care Prognosis guarded Dietary Evaluation Review Comments: 1. advance TF to Vital HP 55ml/hr providing 115g protwin, [id number] free water supporting pt's needs at 100% protein, 79% energy. 2. Reassess needs when Pt is off vent, and/or medically feasible for PO feedings. Expected Outcomes/Goals: maintain wt, avoid catablism Plan discussed with: Daughter, Son, Other IZZY BOOKER MD May 19, 2025 13:11
[2025-05-19] MEDS: POTASSIUM CHL 20MEQ/100ML 100 ML IV SCH (15:15)
[2025-05-19] MEDS: VANCOMYCIN 750MG KIT 100 ML IV ONE (16:25)
[2025-05-19] MEDS: hydrALAZINE HCL 20 MG/ML VL IV PRN (16:48)
--- NOTE | 2025-05-19 22:57 | DVHPN2 ---
Progress Note - Dictate Date Seen: May 19, 2025 Has the PT tested + for MRSA If YES, has PT been informed?: No Medical Necessity Reason Pt with a Central, PICC or Fol: Yes The following are medically ne: PICC Line, Wong Catheter Reason for wong catheter: Strict I&O Subjective [facility] Patient seen and examined at bedside. Sedated, intubated on mechanical ventilator. Overnight events reviewed. vital signs Vital Sign Date Time Temp Pulse Resp B/P (MAP) Pulse Ox O2 Delivery O2 Flow Rate FiO2 05/19/25 22:17 89 22 130/67 97 30 05/19/25 20:15 98.4 209.1 05/19/25 20:00 Mechanical Ventilator+ Total Intake and Output 05/18/25 05/18/25 05/19/25 15:00 23:00 07:00 Intake Total 430.000 ml 1055.876 ml 520.063 ml Output Total 1525 ml 1150 ml Balance 430.000 ml -469.124 ml -629.937 ml medications Current Medications Medications Dose Ordered Sig/Mikki Route Start Time Stop Time Status Last Admin Dose Admin Midazolam HCl 50 ml @ 1 mls/hr Q24H IV 05/14/25 01:15 05/18/25 03:44 3 MLS/HR Lactulose 30 ml BID PO 05/14/25 10:00 05/19/25 21:32 30 ML Fentanyl Citrate 250 ml @ 2.5 mls/hr Q24H IV 05/14/25 10:15 05/16/25 07:07 5 MLS/HR Cefepime HCl 50 ml @ 12.5 mls/hr Q12HR IV 05/14/25 22:00 05/19/25 21:31 12.5 MLS/HR Vancomycin HCl 0 ml @ 0 mls/hr UD IV 05/14/25 12:00 Pantoprazole Sodium 40 mg DAILY IV 05/15/25 10:00 05/19/25 09:54 40 MG Sodium Chloride 10 ml QSHIFT@10,22 IV 05/14/25 22:00 05/19/25 21:32 10 ML Phenylephrine HCl 80 mg/Sodium Chloride 250 ml @ 7.5 mls/hr Q24H IV 05/15/25 03:00 05/16/25 08:45 33.75 MLS/HR Vasopressin 20 units/Sodium Chloride 100 ml @ 9 mls/hr Q11H7M IV 05/15/25 08:00 05/18/25 08:57 9 MLS/HR Norepinephrine Bitartrate 32 mg/ Sodium Chloride 250 ml @ 0.938 mls/ hr Q24H IV 05/15/25 09:00 05/16/25 07:01 5.625 MLS/HR Thiamine HCl 100 mg DAILY IV 05/16/25 10:00 05/19/25 09:54 100 MG Dextrose 50 ml UD PRN IV 05/15/25 13:15 Cancel Epinephrine HCl 250 ml @ 7.5 mls/hr Q24H IV 05/15/25 13:45 05/15/25 14:20 7.5 MLS/HR Bumetanide 2.5 mg BIDD IV 05/15/25 18:00 05/19/25 17:24 2.5 MG Metronidazole 100 ml @ 100 mls/hr Q8HR IV 05/15/25 22:00 05/19/25 21:31 100 MLS/HR Hydrocortisone Sodium Succinate 50 mg Q6HR IV 05/15/25 18:00 05/19/25 17:24 50 MG Dextrose 50 ml UD PRN IV 05/15/25 16:45 Metoclopramide HCl 5 mg Q8HR IV 05/16/25 11:15 05/19/25 21:31 5 MG Enteral Nutritional Formula 1,000 ml 30ML/HR GT 05/17/25 07:15 05/17/25 12:05 1,000 ML Enoxaparin Sodium 80 mg Q12HR SC 05/17/25 22:00 05/19/25 09:54 80 MG Purified Water 200 ml Q6HR GT 05/18/25 12:00 05/19/25 17:24 200 ML Diagnostic Test (Pha) 1 strip IQ4HR 05/18/25 20:00 05/19/25 20:25 1 STRIP Insulin Human Regular IQ4HR SC 05/18/25 20:00 05/19/25 20:24 3 UNITS Dextrose 1,000 ml @ 50 mls/hr Q20H IV 05/19/25 09:00 05/19/25 14:00 50 MLS/HR Hydralazine HCl 10 mg Q6HP PRN IV 05/19/25 12:00 05/19/25 16:48 10 MG objective Gen.: Patient lying in bed in medical ICU. Sedated, intubated on mechanical ventilator. Head: Normocephalic, atraumatic. Eyes: PERRLA. Ears: Normal external anatomy. Throat: Endotracheal tube and orogastric tube in place. Neck: Supple, trachea midline. Chest: Transmitted breath sounds bilaterally. Decreased air entry bilaterally. No wheezing. Bibasilar crackles. Cardiovascular: Positive S1, positive S2. Regular rate and rhythm. Abdomen: Positive bowel sounds in all 4 quadrants. Soft, nontender, nondistended. : Wong in place. Normal external genitalia. Rectal: Deferred. Skin: Warm, dry. Intact. Extremities: 2+ radial pulses bilaterally. No lower extremity edema. Neuro: Sedated. laboratory and microbiology Laboratory Tests 05/19/25 10:46 05/19/25 03:30 Test 05/19/25 10:46 Range/Units Serum Glucose 138 H 74-106 mg/dL Assessment/Plan Impression: Acute hypoxic respiratory failure On mechanical ventilator CHF exacerbation Acute metabolic encephalopathy Cardiogenic shock Pneumonia, possible GNR/GPC Acute kidney injury Lactic acidosis Atelectasis Events: Remains on vent support On AC mode; RR 16, VT 500, PEEP 5, FiO2 30% Taper FiO2 as tolerated ABG reviewed, notable for alkalemia VT was reduced to 450 mL CXR today shows RLL airspace disease CT chest revealed patchy right foot and left lower lobe opacities, favor infection/pneumonia. 3 vessel coronary artery calcifications. Pulmonary arterial hypertension. Trace right pleural effusion Improved ET tube secretions, s/p bronchoscopy yesterday. Off pressors, hemodynamically stable Monitor renal function Monitor electrolytes. Supplement as necessary. Potassium supplementation Continue IV fluids at 50 ml/hr. Taper sedation as tolerated CPAP with PS 8, PEEP 5 when awake and alert. S/p bronchoscopy on 05/18/25 See separate procedure note for details. Labs and imaging reviewed. Rest of plan as noted below. Plan: s/p intubation on mechanical ventilator. On AC mode; RR 16, VT 450, PEEP 5, FiO2 30% Titrate FIO2 to keep O2 saturation above 90%. VAP bundle. Daily ABG and CXR while intubated Sedate for ventilator synchrony Continue antibiotics. F/u cultures. Blood cultures show no growth Continue stress dose steroids - hydrocortisone Continue vitamin supplementation Pressors as necessary for hemodynamic support Titrate to keep mean arterial pressure greater than 65 mmHg. Therapeutic Lovenox IV fluids Monitor renal function Monitor electrolytes. Supplement as necessary. Monitor ins and outs. Maintain euvolemia. GI prophylaxis. DVT prophylaxis. Prognosis: Poor given patient's multiple co-morbidities. Condition: Critical Rest of plan per hospitalist and other consultants. A total of 35 minutes of critical care time was spent reviewing the patient record, examining the patient, making a diagnostic and therapeutic plan, discussing this plan with the medical personnel, following up on diagnostic studies and following the patient for clinical stability excluding any and all procedures. At least 50% of this time was spent in direct, [id number] contact. Thank you, Dr. Bone, for allowing me to participate in this patient's care. Further recommendations will depend on the patient's clinical course. Please do not hesitate to contact me if you have any questions or concerns. This medical document was created using an electronic medical record system with [email or web address] dictation system. Although these documentations are being carefully reviewed, there may still be some phonetic and typographical changes. The errors are purely typographical, due to imperfection on the software program, and do not reflect any compromise in the patient's medical care. Dietary Evaluation Review Comments: 1. advance TF to Vital HP 55ml/hr providing 115g protwin, [id number] free water supporting pt's needs at 100% protein, 79% energy. 2. Reassess needs when Pt is off vent, and/or medically feasible for PO feedings. Expected Outcomes/Goals: maintain wt, avoid catablism Plan discussed with: Other (ABEBA Valle) Critical Care Time(min): 35 ENMANUEL DANG MD May 19, 2025 22:57
--- NOTE | 2025-05-19 23:57 | DVHPN2 ---
Progress Note - Dictate Date Seen: May 19, 2025 Has the PT tested + for MRSA If YES, has PT been informed?: No Medical Necessity Reason Pt with a Central, PICC or Fol: Yes The following are medically ne: PICC Line, Edwards Catheter Subjective Patient was seen and evaluated in follow-up in the ICU. Patient is intubated and sedated on ventilator. 30% FiO2. Patient undergoing CPAP trial, only following commands minimally. WBC 14.9, NA 154, K 3.2, CL 113, BUN 4, FORENSIC PSYCHIATRIST 1.60, CA 8.5, AST 84, ALT 87. vital signs Vital Sign Date Time Temp Pulse Resp B/P (MAP) Pulse Ox O2 Delivery O2 Flow Rate FiO2 05/19/25 12:00 98.2 85 16 143/82 (102) 97 208.8 05/19/25 11:45 30 05/19/25 08:00 Mechanical Ventilator+ Total Intake and Output 05/18/25 05/18/25 05/19/25 14:59 22:59 06:59 Intake Total 394.500 ml 1161.376 ml 568.000 ml Output Total 1525 ml 1150 ml Balance 394.500 ml -363.624 ml -582.000 ml medications Current Medications Medications Dose Ordered Sig/Mikki Route Start Time Stop Time Status Last Admin Dose Admin Midazolam HCl 50 ml @ 1 mls/hr Q24H IV 05/14/25 01:15 05/18/25 03:44 3 MLS/HR Lactulose 30 ml BID PO 05/14/25 10:00 05/19/25 09:54 30 ML Fentanyl Citrate 250 ml @ 2.5 mls/hr Q24H IV 05/14/25 10:15 05/16/25 07:07 5 MLS/HR Cefepime HCl 50 ml @ 12.5 mls/hr Q12HR IV 05/14/25 22:00 05/19/25 09:54 12.5 MLS/HR Vancomycin HCl 0 ml @ 0 mls/hr UD IV 05/14/25 12:00 Pantoprazole Sodium 40 mg DAILY IV 05/15/25 10:00 05/19/25 09:54 40 MG Sodium Chloride 10 ml QSHIFT@10,22 IV 05/14/25 22:00 05/19/25 09:54 10 ML Phenylephrine HCl 80 mg/Sodium Chloride 250 ml @ 7.5 mls/hr Q24H IV 05/15/25 03:00 05/16/25 08:45 33.75 MLS/HR Vasopressin 20 units/Sodium Chloride 100 ml @ 9 mls/hr Q11H7M IV 05/15/25 08:00 05/18/25 08:57 9 MLS/HR Norepinephrine Bitartrate 32 mg/ Sodium Chloride 250 ml @ 0.938 mls/ hr Q24H IV 05/15/25 09:00 05/16/25 07:01 5.625 MLS/HR Thiamine HCl 100 mg DAILY IV 05/16/25 10:00 05/19/25 09:54 100 MG Dextrose 50 ml UD PRN IV 05/15/25 13:15 Cancel Epinephrine HCl 250 ml @ 7.5 mls/hr Q24H IV 05/15/25 13:45 05/15/25 14:20 7.5 MLS/HR Bumetanide 2.5 mg BIDD IV 05/15/25 18:00 05/19/25 07:30 2.5 MG Metronidazole 100 ml @ 100 mls/hr Q8HR IV 05/15/25 22:00 05/19/25 06:25 100 MLS/HR Hydrocortisone Sodium Succinate 50 mg Q6HR IV 05/15/25 18:00 05/19/25 11:38 50 MG Dextrose 50 ml UD PRN IV 05/15/25 16:45 Metoclopramide HCl 5 mg Q8HR IV 05/16/25 11:15 05/19/25 06:26 5 MG Enteral Nutritional Formula 1,000 ml 30ML/HR GT 05/17/25 07:15 05/17/25 12:05 1,000 ML Enoxaparin Sodium 80 mg Q12HR SC 05/17/25 22:00 05/19/25 09:54 80 MG Purified Water 200 ml Q6HR GT 05/18/25 12:00 05/19/25 11:38 200 ML Diagnostic Test (Pha) 1 strip IQ4HR 05/18/25 20:00 05/19/25 11:38 1 STRIP Insulin Human Regular IQ4HR SC 05/18/25 20:00 05/19/25 11:44 2 UNITS Dextrose 1,000 ml @ 50 mls/hr Q20H IV 05/19/25 09:00 05/19/25 09:00 50 MLS/HR Hydralazine HCl 10 mg Q6HP PRN IV 05/19/25 12:00 objective GENERAL: Intubated on ventilator. EYES: PERRL, EOMI. Anicteric. HENT: Moist mucous membranes. LUNGS: Decreased breath sounds. CARDIOVASCULAR: Regular rate and rhythm. ABDOMEN: Distended. EXTREMITIES: No edema. NEUROLOGIC: No focal neurological deficits. SKIN: Warm, dry. laboratory and microbiology Laboratory Tests 05/19/25 10:46 05/19/25 03:30 Test 05/19/25 10:46 Range/Units Serum Glucose 138 H 74-106 mg/dL Problem List 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 SCAI Shock Stage CD (classic/deteriorating cardiogenic shock). Killip IV (cardiogenic shock). Acute ischemic vs progressive dilated cardiomyopathy. Cardiogenic shock requiring pressors (dopamine + norepinephrine). Acute hypoxemic respiratory failure (intubated, FiO2 80%, PEEP 7) due to pneumonia + CHF. Right-sided pneumonia , sepsis physiology with lactic acidosis. SAPNA (KDIGO stage 12) from hypoperfusion, sepsis, diuresis. 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 Assessment/Plan Continued all current supportive medical care. Diuretics with Bumex. IV antibiotics as ordered. DVT and GI prophylactics. IV Hydralazine for SBP > 160. Vasopressors for hemodynamic support. Additional plan as per the hospital course. Critical care time of 45 minutes provided to include time spent evaluation of patient at bedside, when appropriate patient/family education for diagnosis, treatment plan, review of pertinent medical information and discussion of care with specialty providers and PCP.Mechanical ventilator parameters, treatment and adjustments have personally been reviewed by me and treatment plan by lamp cleaner street light has also been reviewed. Dietary Evaluation Review Comments: 1. advance TF to Vital HP 55ml/hr providing 115g protwin, [id number] free water supporting pt's needs at 100% protein, 79% energy. 2. Reassess needs when Pt is off vent, and/or medically feasible for PO feedings. Expected Outcomes/Goals: maintain wt, avoid catablism Plan discussed with: RENATA Reyes MD May 19, 2025 13:36
[2025-05-20] VITALS (90 sets, daily range): BP systolic 93–182; BP diastolic 47–98; PULSE 49–100; RESP 14–29; TEMP 92.8–99.3; O2SAT 89–100
[2025-05-20 03:55] LABS: Hematocrit 29.0 % (41.0-53.0); Hemoglobin 9.3 g/dL (13.5-17.5); Mean Corpuscular Hemoglobin 21.6 pg (28.0-32.0); Mean Corpuscular Volume 67.2 fL (80.0-100.0); Nucleated Red Blood Cells % 0.1 %
[2025-05-20 04:11] LABS: Anion Gap 11 (5-15); BUN/Creatinine Ratio 33.1 (10.0-20.0); Carbon Dioxide 30 mmol/L (20-31); Total Protein 5.9 g/dL (5.7-8.2)
[2025-05-20 04:32] LABS: Alanine Aminotransferase 68 U/L (7-40); Albumin 2.7 g/dL (3.2-4.8); Alkaline Phosphatase 419 U/L (46-116); Bilirubin, Total 1.4 mg/dL (0.2-1.0); Blood Urea Nitrogen 45 mg/dL (9-23); Calcium 8.3 mg/dL (8.7-10.4); Chloride 113 mmol/L (98-107); Glucose 146 mg/dL (74-106); Potassium 3.0 mmol/L (3.5-5.1); Sodium 154 mmol/L (136-145)
[2025-05-20] MEDS ORDERED: SOD CHL 0.9%/ KCL 20MEQ 1,000 ML IV SCH (05:15)
[2025-05-20] MEDS: POTASSIUM CHL 20MEQ/100ML 100 ML IV ONE ×3 (05:39→13:43)
[2025-05-20] MEDS: D5W 5% 1,000 ML IV SCH (05:42)
--- NOTE | 2025-05-20 06:00 | DVH ---
CHEST RADIOGRAPH Indication: intubated Technique: Single frontal view of the chest was obtained COMPARISON: XY CHEST PORTABLE on DOS: 05/19/25, XY CHEST XRAY 1 VIEW on DOS: 05/18/25, XY CHEST PORTABL E on DOS: 05/18/25, XY CHEST PORTABLE on DOS: 05/17/25, XY CHEST PORTABLE on DOS: 05/16/25 FINDINGS: Lines and Tubes: Slight interval retraction of the endotracheal tube such that the tip now projects a pproximately 5.9 cm above the level of the yimi. Remaining lines and tubes unchanged. Lungs: Slight interval improvement in right basilar pulmonary airspace disease. Stable appearing smal l right pleural effusion. No pneumothorax. Cardiomediastinal contours: Unremarkable Bones: Unremarkable IMPRESSION: 1. Slight interval improvement in right basilar pulmonary airspace disease with otherwise stable appe aring small right pleural effusion. 2. Slight interval retraction of the endotracheal tube such that the tip now projects approximately 5 .9 cm above the level of the yimi. Remaining lines and tubes unchanged.
[2025-05-20 07:20] LABS: Base Excess 6.8 mmol/L (-2.0-3.0)
--- NOTE | 2025-05-20 08:23 | DVHPN2 ---
Progress Note Date Seen: May 20, 2025 Resident Creating Document: LING VALENZUELA RESIDENT Has the PT tested + for MRSA If YES, has PT been informed?: No Medical Necessity Reason Pt with a Central, PICC or Fol: Yes The following are medically ne: PICC Line, Wong Catheter Reason for wong catheter: Strict I&O Subjective Review of Systems 74-year-old female with past medical history of CHF, on home oxygen 2-3 L, diabetes mellitus, liver disease, hypertension hyperlipidemia presented to the [facility] with complaints of shortness of breath. Patient was initially on nasal cannula then non-rebreather then BiPAP and eventually intubated. Patient was found to have SAPNA and nephrology was consulted. Interval events 05/20/25 pt is intubated on precedex drip, planned to have CPAP trial today currently on D5W @ 50cc/hr Input and Output 2.5 Lt/4.3 Lt with a net of - 1.7 lt last night 2300 ml urine output off dopamine drip Objective vital signs Vital Sign Date Time Temp Pulse Resp B/P (MAP) Pulse Ox O2 Delivery O2 Flow Rate FiO2 05/20/25 07:40 100 20 134/66 (88) 100 30 05/20/25 06:30 99.3 99.3 05/20/25 06:00 Mechanical Ventilator+ Total Intake and Output 05/19/25 05/19/25 05/20/25 15:00 23:00 07:00 Intake Total 501.876 ml 884.926 ml 1133.895 ml Output Total 2000 ml 2300 ml Balance 501.876 ml -1115.074 ml -1166.105 ml medications Current Medications Medications Dose Ordered Sig/Mikki Route Start Time Stop Time Status Last Admin Dose Admin Midazolam HCl 50 ml @ 1 mls/hr Q24H IV 05/14/25 01:15 05/18/25 03:44 3 MLS/HR Lactulose 30 ml BID PO 05/14/25 10:00 05/19/25 21:32 30 ML Fentanyl Citrate 250 ml @ 2.5 mls/hr Q24H IV 05/14/25 10:15 05/16/25 07:07 5 MLS/HR Cefepime HCl 50 ml @ 12.5 mls/hr Q12HR IV 05/14/25 22:00 05/19/25 21:31 12.5 MLS/HR Vancomycin HCl 0 ml @ 0 mls/hr UD IV 05/14/25 12:00 Pantoprazole Sodium 40 mg DAILY IV 05/15/25 10:00 05/19/25 09:54 40 MG Sodium Chloride 10 ml QSHIFT@10,22 IV 05/14/25 22:00 05/19/25 21:32 10 ML Phenylephrine HCl 80 mg/Sodium Chloride 250 ml @ 7.5 mls/hr Q24H IV 05/15/25 03:00 05/16/25 08:45 33.75 MLS/HR Vasopressin 20 units/Sodium Chloride 100 ml @ 9 mls/hr Q11H7M IV 05/15/25 08:00 05/18/25 08:57 9 MLS/HR Norepinephrine Bitartrate 32 mg/ Sodium Chloride 250 ml @ 0.938 mls/ hr Q24H IV 05/15/25 09:00 05/16/25 07:01 5.625 MLS/HR Thiamine HCl 100 mg DAILY IV 05/16/25 10:00 05/19/25 09:54 100 MG Dextrose 50 ml UD PRN IV 05/15/25 13:15 Cancel Epinephrine HCl 250 ml @ 7.5 mls/hr Q24H IV 05/15/25 13:45 05/15/25 14:20 7.5 MLS/HR Bumetanide 2.5 mg BIDD IV 05/15/25 18:00 05/20/25 04:55 2.5 MG Metronidazole 100 ml @ 100 mls/hr Q8HR IV 05/15/25 22:00 05/20/25 05:00 100 MLS/HR Hydrocortisone Sodium Succinate 50 mg Q6HR IV 05/15/25 18:00 05/20/25 05:41 50 MG Dextrose 50 ml UD PRN IV 05/15/25 16:45 Metoclopramide HCl 5 mg Q8HR IV 05/16/25 11:15 05/20/25 05:00 5 MG Enteral Nutritional Formula 1,000 ml 30ML/HR GT 05/17/25 07:15 05/17/25 12:05 1,000 ML Enoxaparin Sodium 80 mg Q12HR SC 05/17/25 22:00 05/19/25 09:54 80 MG Purified Water 200 ml Q6HR GT 05/18/25 12:00 05/20/25 04:55 200 ML Diagnostic Test (Pha) 1 strip IQ4HR 05/18/25 20:00 05/20/25 04:44 1 STRIP Insulin Human Regular IQ4HR SC 05/18/25 20:00 05/20/25 04:54 2 UNITS Hydralazine HCl 10 mg Q6HP PRN IV 05/19/25 12:00 05/19/25 16:48 10 MG Dextrose 1,000 ml @ 50 mls/hr Q20H IV 05/20/25 05:45 05/20/25 05:42 50 MLS/HR Potassium Chloride 100 ml @ 50 mls/hr Q2H IV 05/20/25 08:15 05/20/25 12:14 UNV Examination Examination General Appearance: Sedated and intubated HEENT: EOMI Respiratory: Clear to auscultation, Normal air movement, on mechanical ventilator Cardiovascular: Regular rate, Normal S1, Normal S2 Abdominal: Normal bowel sounds Extremities: No cyanosis, No edema, Normal pulses, No tenderness/swelling Skin: No rashes, No breakdown Neuro: Sedated and intubated laboratory and microbiology Laboratory Tests 05/20/25 03:26 Test 05/20/25 03:26 Range/Units Serum Glucose 146 H 74-106 mg/dL Microbiology Date/Time Source Procedure Growth Status 05/18/25 10:35 Sputum Gram Stain - Final Resulted 05/18/25 10:35 Sputum Respiratory Culture - Preliminary Resulted 05/14/25 08:24 Voided Urine Urine Culture - Final Complete 05/14/25 02:46 Nose MRSA Screen - Final Complete 05/13/25 17:25 Blood Blood Culture - Final NO GROWTH AFTER 5 DAYS OF INCUBATION. Complete Labs and/or images reviewed: Labs reviewed by me, Image(s) reviewed by me Problem List/Assessment/Plan Problem List/Assessment/Plan Assessment/plan # acute kidney injury likely in the setting of shock , related to acute tubular necrosis likely Input and Output 2.5 Lt/4.3 Lt with a net of - 1.7 lt last night 2300 ml urine output off dopamine drip kidney function improved from 1.6 creatinine to 1. 36 # hypernatremia currently on D5W @ 50cc/hr # hypocalcemia, asymptomatic Corrected calcium 8.6 # acute hypoxic respiratory failure, on ventilator # shock, likely cardiogenic, possible septic shock component # acute HFrEF exacerbation # diabetes mellitus type 2 # history of liver disease # history of hypertension # hyperlipidemia Plan Strict input output Monitor kidney function and electrolytes Improvement in kidney function Continue with Bumex IV 2.5 mg b.i.d., we will consider decreasing the dose of Bumex tomorrow Avoid nephrotoxic drugs Hypokalemia corrected with IV potassium, monitor levels continue free water 200 ml Q6hrs, monitor BMP continue D5W @ 50 cc/hr Rest of Management per ICU team Case discussion with Dr. Dumas. Addendum Patient seen and examined, plan discussed with resident. Agree with above, we will follow closely Plan discussed with: Other My Orders My Orders Orders - LING VALENZUELA RESIDENT Procedure Category Date Status Time Potassium Chl PHA 05/20/25 Logged 20meq/100ml 08:15 Magnesium LAB 05/20/25 Logged 08:15 Dietary Evaluation Review Comments: 1. advance TF to Vital HP 55ml/hr providing 115g protwin, [id number] free water supporting pt's needs at 100% protein, 79% energy. 2. Reassess needs when Pt is off vent, and/or medically feasible for PO feedings. Expected Outcomes/Goals: maintain wt, avoid catablism LING VALENZUELA May 20, 2025 08:23 LIZ DUMAS MD May 20, 2025 15:52
[2025-05-20] MEDS: POTASSIUM CHL 20MEQ/100ML 100 ML IV SCH ×2 (09:12→22:57)
[2025-05-20] MEDS ORDERED: Vital High Protein 1liter Bottle GT SCH (09:45)
[2025-05-20 10:47] LABS: Base Excess 7.2 mmol/L (-2.0-3.0)
--- NOTE | 2025-05-20 10:54 | DVHPN2 ---
Consult Progress Note Date Seen: May 20, 2025 Subjective Other Systems: No overnight cardiac events reported Objective vital signs Vital Sign Date Time Temp Pulse Resp B/P (MAP) Pulse Ox O2 Delivery O2 Flow Rate FiO2 05/20/25 10:15 70 16 142/68 (92) 97 05/20/25 10:00 Mechanical Ventilator+ 30 30 05/20/25 07:00 99.1 99.1 Total Intake and Output 05/19/25 05/19/25 05/20/25 15:00 23:00 07:00 Intake Total 501.876 ml 884.926 ml 1186.138 ml Output Total 2000 ml 2300 ml Balance 501.876 ml -1115.074 ml -1113.862 ml medications Current Medications Medications Dose Ordered Sig/Mikki Route Start Time Stop Time Status Last Admin Dose Admin Midazolam HCl 50 ml @ 1 mls/hr Q24H IV 05/14/25 01:15 05/18/25 03:44 3 MLS/HR Lactulose 30 ml BID PO 05/14/25 10:00 05/19/25 21:32 30 ML Fentanyl Citrate 250 ml @ 2.5 mls/hr Q24H IV 05/14/25 10:15 05/16/25 07:07 5 MLS/HR Cefepime HCl 50 ml @ 12.5 mls/hr Q12HR IV 05/14/25 22:00 05/20/25 09:13 12.5 MLS/HR Vancomycin HCl 0 ml @ 0 mls/hr UD IV 05/14/25 12:00 Pantoprazole Sodium 40 mg DAILY IV 05/15/25 10:00 05/20/25 09:16 40 MG Sodium Chloride 10 ml QSHIFT@10,22 IV 05/14/25 22:00 05/20/25 09:18 10 ML Phenylephrine HCl 80 mg/Sodium Chloride 250 ml @ 7.5 mls/hr Q24H IV 05/15/25 03:00 05/16/25 08:45 33.75 MLS/HR Vasopressin 20 units/Sodium Chloride 100 ml @ 9 mls/hr Q11H7M IV 05/15/25 08:00 05/18/25 08:57 9 MLS/HR Norepinephrine Bitartrate 32 mg/ Sodium Chloride 250 ml @ 0.938 mls/ hr Q24H IV 05/15/25 09:00 05/16/25 07:01 5.625 MLS/HR Thiamine HCl 100 mg DAILY IV 05/16/25 10:00 05/20/25 09:17 100 MG Dextrose 50 ml UD PRN IV 05/15/25 13:15 Cancel Epinephrine HCl 250 ml @ 7.5 mls/hr Q24H IV 05/15/25 13:45 05/15/25 14:20 7.5 MLS/HR Bumetanide 2.5 mg BIDD IV 05/15/25 18:00 05/20/25 04:55 2.5 MG Metronidazole 100 ml @ 100 mls/hr Q8HR IV 05/15/25 22:00 05/20/25 05:00 100 MLS/HR Hydrocortisone Sodium Succinate 50 mg Q6HR IV 05/15/25 18:00 05/20/25 05:41 50 MG Dextrose 50 ml UD PRN IV 05/15/25 16:45 Metoclopramide HCl 5 mg Q8HR IV 05/16/25 11:15 05/20/25 05:00 5 MG Enoxaparin Sodium 80 mg Q12HR SC 05/17/25 22:00 05/20/25 09:19 80 MG Purified Water 200 ml Q6HR GT 05/18/25 12:00 05/20/25 04:55 200 ML Diagnostic Test (Pha) 1 strip IQ4HR 05/18/25 20:00 05/20/25 09:11 1 STRIP Insulin Human Regular IQ4HR SC 05/18/25 20:00 05/20/25 09:19 3 UNITS Hydralazine HCl 10 mg Q6HP PRN IV 05/19/25 12:00 05/19/25 16:48 10 MG Dextrose 1,000 ml @ 50 mls/hr Q20H IV 05/20/25 05:45 05/20/25 05:42 50 MLS/HR Potassium Chloride 100 ml @ 50 mls/hr Q2H IV 05/20/25 08:15 05/20/25 12:14 05/20/25 09:12 50 MLS/HR Enteral Nutritional Formula 1,000 ml 55ML/HR GT 05/20/25 09:45 Examination: LUNGS:Abnormal (Endotracheally intubated with 30% FiO2), CVS:Normal (Off vasopressors. NSR), NEURO:Normal (Off sedation, following commands) laboratory and microbiology Laboratory Tests 05/20/25 03:26 Test 05/20/25 03:26 Range/Units Serum Glucose 146 H 74-106 mg/dL Problem List/Assessment/Plan Problem List/Assessment/Plan 1. 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 * SCAI Shock Stage CD (classic/deteriorating cardiogenic shock). * Killip IV (cardiogenic shock). * Acute ischemic vs progressive dilated cardiomyopathy. 2. Cardiogenic shock requiring pressors (dopamine + norepinephrine, now discontinued). 3. Acute hypoxemic respiratory failure (intubated, FiO2 80%, PEEP 7) due to pneumonia + CHF. 4. Right-sided pneumonia , sepsis physiology with lactic acidosis. 5. SAPNA (KDIGO stage 12) from hypoperfusion, sepsis, diuresis. 6. 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 Plan/Recommendation (Dr. Kapoor) Cardiovascular: * Judicious introduction of GDMT for HFrEF. Initiate BB and ARNI. *Strict I/O, daily weights, fluid restriction <1.5 L/day. Trend BNP. Bumex initiated by Renal team. *Replete electrolytes as necessary. Monitor for arrhythmias, replenished K more than 4.0, Mg > 2 * Evaluate candidacy for MCS (IABP/Impella/LVAD) prognosis limited by cirrhosis and questionable history of cancer. *Nephrology follow-up and recommendations appreciated. Prophylaxis: * DVT: Enoxaparin. * GI: IV PPI daily. * ICU bundle: head elevation, turning protocol, pressure sore prevention. Thank you for allowing us to participate in this patient's care. Please call if you have any questions or concerns. Critical care time: 30 min. This medical document was created using an electronic medical record system with voice recognition software and computerized dictation system. Although this document has been carefully reviewed, there might still be some phonetic and typographical errors. Occasional wrong-word or ``sound-alike substitutions may have occurred due to the inherent limitations of voice recognition software. These areas are purely typographical due to imperfections of the software programs and do not reflect any compromise in the patient's medical care. Please read the chart carefully and recognize, using context, where these substitutions have occurred. Plan discussed with: Other Dietary Evaluation Review Comments: 1. advance TF to Vital HP 55ml/hr providing 115g protwin, [id number] free water supporting pt's needs at 100% protein, 79% energy. 2. Reassess needs when Pt is off vent, and/or medically feasible for PO feedings. Expected Outcomes/Goals: maintain wt, avoid catablism Date of Service: May 20, 2025 Billing Provider: ASHU WOLFE Cardiology Common Codes: 14326-[id number] CARE 30-74 MIN ASHU WOLFE May 20, 2025 10:54
--- NOTE | 2025-05-20 11:25 | DVHPN2 ---
Consult Progress Note Date Seen: May 20, 2025 Subjective Other Systems: Patient was seen and evaluated in follow up in the ICU. Patient intubated on ventilator. 30% FiO2. No overnight cardiac events reported. HGB 9.3, HCT 29, NA 154, K 3.0, BUN 45, Credit Control Officer 1.36. Objective vital signs Vital Sign Date Time Temp Pulse Resp B/P (MAP) Pulse Ox O2 Delivery O2 Flow Rate FiO2 05/20/25 11:00 60 14 147/72 (97) 98 05/20/25 10:00 Mechanical Ventilator+ 30 30 05/20/25 07:00 99.1 99.1 Total Intake and Output 05/19/25 05/19/25 05/20/25 15:00 23:00 07:00 Intake Total 501.876 ml 884.926 ml 1186.138 ml Output Total 2000 ml 2300 ml Balance 501.876 ml -1115.074 ml -1113.862 ml medications Current Medications Medications Dose Ordered Sig/Mikki Route Start Time Stop Time Status Last Admin Dose Admin Midazolam HCl 50 ml @ 1 mls/hr Q24H IV 05/14/25 01:15 05/18/25 03:44 Lactulose 30 ml BID PO 05/14/25 10:00 05/19/25 21:32 Fentanyl Citrate 250 ml @ 2.5 mls/hr Q24H IV 05/14/25 10:15 05/16/25 07:07 Cefepime HCl 50 ml @ 12.5 mls/hr Q12HR IV 05/14/25 22:00 05/20/25 09:13 Vancomycin HCl 0 ml @ 0 mls/hr UD IV 05/14/25 12:00 Pantoprazole Sodium 40 mg DAILY IV 05/15/25 10:00 05/20/25 09:16 Sodium Chloride 10 ml QSHIFT@10,22 IV 05/14/25 22:00 05/20/25 09:18 Norepinephrine Bitartrate 32 mg/ Sodium Chloride 250 ml @ 0.938 mls/ hr Q24H IV 05/15/25 09:00 05/16/25 07:01 Thiamine HCl 100 mg DAILY IV 05/16/25 10:00 05/20/25 09:17 Dextrose 50 ml UD PRN IV 05/15/25 13:15 Cancel Bumetanide 2.5 mg BIDD IV 05/15/25 18:00 05/20/25 04:55 Metronidazole 100 ml @ 100 mls/hr Q8HR IV 05/15/25 22:00 05/20/25 05:00 Hydrocortisone Sodium Succinate 50 mg Q6HR IV 05/15/25 18:00 05/20/25 05:41 Dextrose 50 ml UD PRN IV 05/15/25 16:45 Metoclopramide HCl 5 mg Q8HR IV 05/16/25 11:15 05/20/25 05:00 Enoxaparin Sodium 80 mg Q12HR SC 05/17/25 22:00 05/20/25 09:19 Purified Water 200 ml Q6HR GT 05/18/25 12:00 05/20/25 04:55 Diagnostic Test (Pha) 1 strip IQ4HR 05/18/25 20:00 05/20/25 09:11 Insulin Human Regular IQ4HR SC 05/18/25 20:00 05/20/25 09:19 Hydralazine HCl 10 mg Q6HP PRN IV 05/19/25 12:00 05/19/25 16:48 Dextrose 1,000 ml @ 50 mls/hr Q20H IV 05/20/25 05:45 05/20/25 05:42 Potassium Chloride 100 ml @ 50 mls/hr Q2H IV 05/20/25 08:15 05/20/25 12:14 05/20/25 09:12 Enteral Nutritional Formula 1,000 ml 55ML/HR GT 05/20/25 09:45 Metoprolol Tartrate 12.5 mg BID PO 05/20/25 22:00 UNV Sacubitril/ Valsartan 0.5 tab BID PO 05/20/25 22:00 UNV Examination: GENERAL:Abnormal, HEENT:Abnormal, LUNGS:Abnormal (Endotracheally intubated with 30% FiO2), CVS:Normal, ABDOMEN:Normal, SKIN:Normal, NEURO:Normal (Off sedation, following commanda ) laboratory and microbiology Laboratory Tests 05/20/25 03:26 Test 05/20/25 03:26 Range/Units Serum Glucose 146 H 74-106 mg/dL Problem List/Assessment/Plan Problem List/Assessment/Plan End-stage HFrEF (EF 10%) with acute on chronic decompensation. NYHA IV / ACC-AHA Stage D. SCAI Shock Stage CD (classic/deteriorating cardiogenic shock). Killip IV (cardiogenic shock). Acute ischemic vs progressive dilated cardiomyopathy. Cardiogenic shock requiring pressors (dopamine + norepinephrine, now discontinued). Acute hypoxemic respiratory failure (intubated, FiO2 80%, PEEP 7) due to pneumonia + CHF. Right-sided pneumonia , sepsis physiology with lactic acidosis. SAPNA (KDIGO stage 12) from hypoperfusion, sepsis, diuresis. 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 Plan Continued all current supportive medical care. Patient has been seen by Elysia Milner NP on my behalf. We have discussed the plan with the patient. Judicious introduction of GDMT for HFrEF. Initiate BB and ARNI. Strict I/O, daily weights, fluid restriction <1.5 L/day. Trend BNP. Bumex initiated by Renal team. Replete electrolytes as necessary. Monitor for arrhythmias, replenished K more than 4.0, Mg > 2 Evaluate candidacy for MCS (IABP/Impella/LVAD) prognosis limited by cirrhosis and questionable history of cancer. Nephrology follow-up and recommendations appreciated. Prophylaxis: DVT: Enoxaparin. GI: IV PPI daily. ICU bundle: head elevation, turning protocol, pressure sore prevention. Additional plan as per the hospital course. Plan discussed with: Other Dietary Evaluation Review Comments: 1. advance TF to Vital HP 55ml/hr providing 115g protwin, [id number] free water supporting pt's needs at 100% protein, 79% energy. 2. Reassess needs when Pt is off vent, and/or medically feasible for PO feedings. Expected Outcomes/Goals: maintain wt, avoid catablism Date of Service: May 20, 2025 Billing Provider: RENATA PEDRAZA MD Cardiology Common Codes: [id number] CARE 30-74 MIN RENATA PEDRAZA MD May 20, 2025 11:25
[2025-05-20] MEDS: VANCOMYCIN 750MG KIT 100 ML IV ONE (13:19)
--- NOTE | 2025-05-20 13:46 | DVHPN2 ---
Progress Note - Dictate Date Seen: May 20, 2025 Has the PT tested + for MRSA If YES, has PT been informed?: No Medical Necessity Reason Pt with a Central, PICC or Fol: Yes The following are medically ne: PICC Line, Wong Catheter Reason for wong catheter: Strict I&O Subjective Mr. Mayberry is a 74 years old right-handed gentleman with a history of hypertension, diabetes, dyslipidemia, congestive heart failure on home oxygen, liver disease, he was [facility] to the [facility] 05[facility]26 with a chief complaint of shortness of breath, in the hospital, the patient was found to have acute respiratory failure, combined metabolic respiratory acidosis, and was intubated in the emergency room. I have seen and examined the patient, I have talked to his nurse, family in the room he is extubated, awake, he is oriented to person, place, he knows year, he follow verbal commands, socially appropriate, but not able to keep a good history Urinalysis, 05/13/2025: WBC: 7, urine leukocyte esterase: Negative ABG, 05/14/2025: Hypoxia, metabolic acidosis, 05/15/2025: Metabolic acidosis WBC/HB/PLT/MCV, 05/14/2025: 3.4/11.1/107/69.6, 05/15/25: 15.4/13.9/171/67 PT/INR/ABG, 05/14/2025: 12.2/1.71/35.8 BUN/CR, 05/14/2025: 21/1.69 GFR, 05/14/2025: 42 Lactic acid, 05/13/2025: 6.6, 8.3, 9.8 Glucose, 05/14/2025: 44, 40, 136, 116, 106 TBI/AST/ALT/AP, 05/14/2025: 2.5/84/52/209, : 149/170/95/158 Ammonia, 05/14/2025: 54 Vitamin B12, 01/24/2025: 941, 05/14/25: 776 Folic acid, 01/25/2025: 8.94, 05/14/25:9.29 TSH, 01/24/2025: 2.6, 05/14/2025: 4.19 Chest x-ray, 05/14/2025: 1. Adequately positioned endotracheal and enteric tubes new from prior exam. 2. Similar diffuse right and mild left basilar airspace disease. CT head, 05/14/2025: 1. No acute intracranial abnormality. 2. Right ocular lens prosthesis. 3. Mild periventricular and subcortical white matter disease likely related to sequelae of chronic microvascular ischemic changes although other etiologies are not excluded vital signs Vital Sign Date Time Temp Pulse Resp B/P (MAP) Pulse Ox O2 Delivery O2 Flow Rate FiO2 05/20/25 13:30 97.9 78 17 156/75 (102) 95 97.9 05/20/25 12:00 Cool Aerosol 8 30 30 Total Intake and Output 05/19/25 05/19/25 05/20/25 15:00 23:00 07:00 Intake Total 501.876 ml 884.926 ml 1186.138 ml Output Total 2000 ml 2300 ml Balance 501.876 ml -1115.074 ml -1113.862 ml medications Current Medications Medications Dose Ordered Sig/Mikki Route Start Time Stop Time Status Last Admin Dose Admin Midazolam HCl 50 ml @ 1 mls/hr Q24H IV 05/14/25 01:15 05/18/25 03:44 3 MLS/HR Lactulose 30 ml BID PO 05/14/25 10:00 05/19/25 21:32 30 ML Fentanyl Citrate 250 ml @ 2.5 mls/hr Q24H IV 05/14/25 10:15 05/16/25 07:07 5 MLS/HR Cefepime HCl 50 ml @ 12.5 mls/hr Q12HR IV 05/14/25 22:00 05/20/25 09:13 12.5 MLS/HR Vancomycin HCl 0 ml @ 0 mls/hr UD IV 05/14/25 12:00 Pantoprazole Sodium 40 mg DAILY IV 05/15/25 10:00 05/20/25 09:16 40 MG Sodium Chloride 10 ml QSHIFT@10,22 IV 05/14/25 22:00 05/20/25 09:18 10 ML Norepinephrine Bitartrate 32 mg/ Sodium Chloride 250 ml @ 0.938 mls/ hr Q24H IV 05/15/25 09:00 05/16/25 07:01 5.625 MLS/HR Thiamine HCl 100 mg DAILY IV 05/16/25 10:00 05/20/25 09:17 100 MG Dextrose 50 ml UD PRN IV 05/15/25 13:15 Cancel Bumetanide 2.5 mg BIDD IV 05/15/25 18:00 05/20/25 04:55 2.5 MG Metronidazole 100 ml @ 100 mls/hr Q8HR IV 05/15/25 22:00 05/20/25 05:00 100 MLS/HR Hydrocortisone Sodium Succinate 50 mg Q6HR IV 05/15/25 18:00 05/20/25 11:19 50 MG Dextrose 50 ml UD PRN IV 05/15/25 16:45 Metoclopramide HCl 5 mg Q8HR IV 05/16/25 11:15 05/20/25 05:00 5 MG Enoxaparin Sodium 80 mg Q12HR SC 05/17/25 22:00 05/20/25 09:19 80 MG Purified Water 200 ml Q6HR GT 05/18/25 12:00 05/20/25 04:55 200 ML Diagnostic Test (Pha) 1 strip IQ4HR 05/18/25 20:00 05/20/25 11:19 1 STRIP Insulin Human Regular IQ4HR SC 05/18/25 20:00 05/20/25 11:24 3 UNITS Hydralazine HCl 10 mg Q6HP PRN IV 05/19/25 12:00 05/20/25 12:08 10 MG Dextrose 1,000 ml @ 50 mls/hr Q20H IV 05/20/25 05:45 05/20/25 12:36 50 MLS/HR Enteral Nutritional Formula 1,000 ml 55ML/HR GT 05/20/25 09:45 Metoprolol Tartrate 12.5 mg BID PO 05/20/25 22:00 UNV Sacubitril/ Valsartan 0.5 tab BID PO 05/20/25 22:00 UNV objective The patient is well-nourished and well-developed with no distress. MENTAL STATUS: Subjective CRANIAL NERVES: Pupils are round with the right pupil is bigger and nonreactive, left pupil is reactive. He has conjugated eye movement. No signs of facial weakness., sensorimotor examination is normal in bilateral trigeminal distribution SENSATION: Find pinprick and light touch MOTOR: Normal tone in the upper and lower extremity. Normal muscle bulk. No fasciculations. He moves the arms and legs REFLEXES: Deep tendon reflexes are symmetrical. CEREBELLAR/COORDINATION: No ataxia GAIT/STATION: deferred. laboratory and microbiology Laboratory Tests 05/20/25 03:26 Test 05/20/25 03:26 Range/Units Serum Glucose 146 H 74-106 mg/dL Problem List Unequal pupil size, secondary to right prosthetic eye Coma resolved Hypoxic encephalopathy Metabolic encephalopathy Hepatic encephalopathy Respiratory acidosis, resolved Metabolic acidosis, resolved Respiratory failure, improving Cognitive dysfunction/mild cognitive impairment/mild dementia ? Alcohol related dementia/Korsakoff disease ? Alzheimer's dementia Liver failure ? Secondary to alcoholism ? Secondary to congestive heart failure Kidney failure Pneumonia Assessment/Plan Monitoring Supportive treatment ICU care Stabilize vitals Respiratory support Oxygen Bicarb IV drip IV fluids IV antibiotics Thiamine supplementation Cardiology evaluation Pulmonology evaluation Address cognitive dysfunction when he is mentally better More recommendation per clinical course This medical document was created using an electronic medical record system with [employer] dictation system. Although this document has been carefully reviewed, there may still be some phonetic and typographical errors. These areas are purely typographical due to imperfections of the software programs, and do not reflect any compromise in the patient's medical care Prognosis poor Dietary Evaluation Review Comments: 1. advance TF to Vital HP 55ml/hr providing 115g protwin, [id number] free water supporting pt's needs at 100% protein, 79% energy. 2. Reassess needs when Pt is off vent, and/or medically feasible for PO feedings. Expected Outcomes/Goals: maintain wt, avoid catablism Plan discussed with: Daughter, Son, Other IZZY BOOKER MD May 20, 2025 13:46
[2025-05-20] MEDS: hydrALAZINE HCL 20 MG/ML VL IV ONE (15:29)
--- NOTE | 2025-05-20 16:47 | DVHPNRES ---
Progress Note Date Seen: May 20, 2025 Resident Creating Document: DUARTE SPIVEY RESIDENT Has the PT tested + for MRSA If YES, has PT been informed?: No Medical Necessity Reason Pt with a Central, PICC or Fol: Yes The following are medically ne: PICC Line, Wong Catheter Reason for wong catheter: Strict I&O Subjective Review of Systems This is a 74-year-old male with past medical history of CHF on home O2 2 to 3L, diabetes mellitus, liver disease, hypertension, and hyperlipidemia who presented to [facility] ED with complaint of shortness of breaths. Patient reports that he has been experiencing worsening shortness of breaths with associated leg swelling and chest pressure since this morning. Patient was on 87% on 2L despite giving 2 DuoNeb treatments en route, placing him on a non- rebreather mask upon arrival. in the ED patient was hypoxic, increased work of breathing, desaturating on BiPAP and subsequently intubated. Patient was seen and examined in the ICU. He was on mechanical ventilation with FiO2 30%, tidal volume 500 mL, peep 5, respiratory rate 20. Was off sedation and pressors since last 2 days and was on CPAP trial yesterday. Today morning started CPAP trial from 9:30 a.m., the patient was following commands. After 2 hours of CPAP trial the weaning parameters shows vital capacity 1300 mL, leak 300 mL, RSBI 44, Nif -24 , ABG reveals pH 7.53, pCO2 36.8, HC03 30.1, PO2 96.6. Patient was successfully extubated at 11:20 a.m. and post extubation no stridor, no respiratory distress and was on 8 L on FiO2 30% via cool aerosol . The patient is now on nasal cannula 2 L and waiting for speech therapy swallow evaluation. Urine output is significantly increased and and improved BUN creatinine to 45/1.36. Objective vital signs Vital Sign Date Time Temp Pulse Resp B/P (MAP) Pulse Ox O2 Delivery O2 Flow Rate FiO2 05/20/25 16:30 98.2 85 26 148/49 (82) 90 98.2 05/20/25 16:00 Nasal Cannula* 3 32 Total Intake and Output 05/19/25 05/19/25 05/20/25 15:00 23:00 07:00 Intake Total 501.876 ml 884.926 ml 1186.138 ml Output Total 2000 ml 2300 ml Balance 501.876 ml -1115.074 ml -1113.862 ml medications Current Medications Medications Dose Ordered Sig/Mikki Route Start Time Stop Time Status Last Admin Dose Admin Midazolam HCl 50 ml @ 1 mls/hr Q24H IV 05/14/25 01:15 05/18/25 03:44 3 MLS/HR Lactulose 30 ml BID PO 05/14/25 10:00 05/19/25 21:32 30 ML Fentanyl Citrate 250 ml @ 2.5 mls/hr Q24H IV 05/14/25 10:15 05/16/25 07:07 5 MLS/HR Cefepime HCl 50 ml @ 12.5 mls/hr Q12HR IV 05/14/25 22:00 05/20/25 09:13 12.5 MLS/HR Vancomycin HCl 0 ml @ 0 mls/hr UD IV 05/14/25 12:00 Pantoprazole Sodium 40 mg DAILY IV 05/15/25 10:00 05/20/25 09:16 40 MG Sodium Chloride 10 ml QSHIFT@10,22 IV 05/14/25 22:00 05/20/25 09:18 10 ML Norepinephrine Bitartrate 32 mg/ Sodium Chloride 250 ml @ 0.938 mls/ hr Q24H IV 05/15/25 09:00 05/16/25 07:01 5.625 MLS/HR Thiamine HCl 100 mg DAILY IV 05/16/25 10:00 05/20/25 09:17 100 MG Dextrose 50 ml UD PRN IV 05/15/25 13:15 Cancel Bumetanide 2.5 mg BIDD IV 05/15/25 18:00 05/20/25 04:55 2.5 MG Metronidazole 100 ml @ 100 mls/hr Q8HR IV 05/15/25 22:00 05/20/25 14:36 100 MLS/HR Hydrocortisone Sodium Succinate 50 mg Q6HR IV 05/15/25 18:00 05/20/25 11:19 50 MG Dextrose 50 ml UD PRN IV 05/15/25 16:45 Metoclopramide HCl 5 mg Q8HR IV 05/16/25 11:15 05/20/25 13:43 5 MG Enoxaparin Sodium 80 mg Q12HR SC 05/17/25 22:00 05/20/25 09:19 80 MG Purified Water 200 ml Q6HR GT 05/18/25 12:00 05/20/25 04:55 200 ML Diagnostic Test (Pha) 1 strip IQ4HR 05/18/25 20:00 05/20/25 15:28 1 STRIP Insulin Human Regular IQ4HR SC 05/18/25 20:00 05/20/25 15:35 3 UNITS Hydralazine HCl 10 mg Q6HP PRN IV 05/19/25 12:00 05/20/25 12:08 10 MG Dextrose 1,000 ml @ 50 mls/hr Q20H IV 05/20/25 05:45 05/20/25 12:36 50 MLS/HR Enteral Nutritional Formula 1,000 ml 55ML/HR GT 05/20/25 09:45 Metoprolol Tartrate 12.5 mg BID PO 05/20/25 22:00 Sacubitril/ Valsartan 0.5 tab BID PO 05/20/25 22:00 Examination Physical examination: General Appearance: Alert, Oriented X3, Cooperative, on nasal canula 2L HEENT: Atraumatic, PERRLA, EOMI, Mucous membrane moist/pink Respiratory: Bilateral vesicular breath sound with rales on right lower lobe Cardiovascular: Regular rate, Normal S1, Normal S2, No murmurs, no chest wall tenderness Abdominal: Normal bowel sounds, Soft, No tenderness, No hepatospenomegaly, No masses Extremities: No clubbing, No cyanosis, No edema, Normal pulses, No tenderness/swelling Skin: No rashes, No breakdown, No significant lesion Neuro: Grossly intact cranial nerves Cranial nerves 3-12 NL, Reflexes 2+ Psych/Mental Status: Could not be assessed. laboratory and microbiology Laboratory Tests 05/20/25 03:26 Test 05/20/25 03:26 Range/Units Serum Glucose 146 H 74-106 mg/dL Microbiology Date/Time Source Procedure Growth Status 05/18/25 10:35 Sputum Gram Stain - Final Resulted 05/18/25 10:35 Sputum Respiratory Culture - Preliminary Resulted 05/14/25 08:24 Voided Urine Urine Culture - Final Complete 05/14/25 02:46 Nose MRSA Screen - Final Complete 05/13/25 17:25 Blood Blood Culture - Final NO GROWTH AFTER 5 DAYS OF INCUBATION. 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 CARDIOVASCULAR: Acute on chronic decompensated systolic heart failure cardiogenic shock/ septic shock secondary to above NSTEMI type 2 likely secondary to above -chest x-ray demonstrated right-sided pneumonia with pulmonary vascular congestion -BNP> 5000 and trops were mildly elevated and flat - Echo on 02/10 demonstrated EF 10% with end-stage dilated heart failure, RVSP 38 mm Hg - status post extubation, off sedation and pressors - Hold GDM T because pt is NPO - Waiting for swallow evaluation PULMONARY: Acute hypoxic respiratory failure secondary to exacerbation of CHF/ pneumonia right-sided Gram-positive versus Gram-negative community acquired pneumonia possible aspiration pneumonia Rule out lung malignancy - Right lower lobe atelectasis due to mucous plugging Mucous plugging from L6-L10 and R1-R10 RML BAL performed . - chest x-ray demonstrated right-sided pneumonia with pulmonary vascular congestion - respiratory culture revealed strep pneumonia and MRSA negative - IV vancomycin as per pharmacy and IV cefepime 1 g q.12 hours and IV metronidazole q8hr. 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 - Lactulose 30 mL b.i.d. GENITOURINARY: Acute kidney injury likely secondary to shock / VMN improving - Bumex 2.5 mg IV bid. - strict I&O - monitor BMP ENDOCRINE: Hypoglycemia resolved - monitor blood sugar closely METABOLIC: Moderate protein calorie malnutrition Hypernatremia - Free water 200 mL GT q.6 hours - IV 5% DA at 50 mL/hours HEME: Acute DVT of right upper arm Chronic microcytic hypochromic anemia likely due to anemia of chronic disease Thrombocytopenia likely due to cirrhosis - Doppler venous scan of the upper extremity showed deep vein thrombosis of right axillary and subclavian vein and thrombosis of left basilic vein - therapeutic Lovenox 1 milligram/kg body weight b.i.d. INFECTIOUS DISEASE: Right-sided Gram-positive/ Gram-negative community acquired pneumonia Possible aspiration pneumonia - chest x-ray demonstrated right-sided pneumonia with pulmonary vascular congestion - Preliminary blood cultures were unremarkable and MRSA negative - sputum culture showed strep pneumoniae - IV vancomycin as per pharmacy and IV cefepime 1 g q.12 hours and IV metronidazole q8hr. DIET: NPO DVT prophylax:Lovenox GI prophylaxis:Protonix Bowel regimen:Lactulose Code status: modified DNR, no chest compression LINES/DRAINS/ACCESS: Rt upper arm PICC line on 05/14 ETT: Intubated on 05/13/25 IV access: Rt upper arm PICC line on 05/14, rt femoral arterial line 05/15 Wong catheter: placed on 05/13/2025 DISPOSITION: ICU Patient's status discussed with son and [id number] Critical care time spent more than 83 minutes, including CPAP trial, patient care, chart review, and updating the family. Excluding any procedures. Case discussed with Dr. Puga Plan discussed with: Other (Son, RN) My Orders My Orders Orders - DUARTE SPIVEY Procedure Category Date Status Time Cpap Trial For Am ORDERS 05/20/25 Transmitted 09:30 Nutritional PHA 05/20/25 In Process Supplements (Vital 09:45 Cpap Trial For Am ORDERS 05/20/25 Transmitted 09:40 Abg W/ Co-Ox RT 05/20/25 Logged 10:30 Oxygen Via Cool Mist RT 05/20/25 Transmitted Mask 11:00 * Swallow Request ST 05/20/25 Transmitted 14:40 Vancomycin,Random LAB 05/21/25 Verified 06:00 Vancomycin Per SOPHIA 05/20/25 In Process Pharmacy Protoc 16:31 Dietary Evaluation Review Comments: 1. advance TF to Vital HP 55ml/hr providing 115g protwin, [id number] free water supporting pt's needs at 100% protein, 79% energy. 2. Reassess needs when Pt is off vent, and/or medically feasible for PO feedings. Expected Outcomes/Goals: maintain wt, avoid catablism DUARTE SPIVEY RESIDENT May 20, 2025 16:47
[2025-05-20] MEDS: METOPROLOL TARTRATE 25 MG TAB PO SCH (21:11)
[2025-05-20] MEDS: SACUBITRIL-VALSARTAN 24mg/26mg TAB PO SCH (21:11)
[2025-05-20] MEDS: MAGNESIUM SULFATE 1GM/100ML 100 ML IV ONE (23:58)
[2025-05-21] VITALS (50 sets, daily range): BP systolic 132–207; BP diastolic 62–101; PULSE 81–144; RESP 13–94; TEMP 97.9–98.8; O2SAT 90–100
[2025-05-21 03:28] LABS: Hemoglobin 14.9 g/dL (13.5-17.5)
[2025-05-21 03:31] LABS: Hematocrit 45.9 % (41.0-53.0); Mean Corpuscular Hemoglobin 21.5 pg (28.0-32.0); Mean Corpuscular Volume 66.1 fL (80.0-100.0); Nucleated Red Blood Cells % 0.1 %
[2025-05-21 03:49] LABS: Anion Gap 9 (5-15); BUN/Creatinine Ratio 32.7 (10.0-20.0); Carbon Dioxide 30 mmol/L (20-31); Magnesium 2.2 mg/dL (1.6-2.6); Potassium 3.9 mmol/L (3.5-5.1); Total Protein 6.9 g/dL (5.7-8.2)
[2025-05-21 03:55] LABS: Alanine Aminotransferase 66 U/L (7-40); Albumin 3.1 g/dL (3.2-4.8); Alkaline Phosphatase 474 U/L (46-116); Bilirubin, Total 3.0 mg/dL (0.2-1.0); Blood Urea Nitrogen 36 mg/dL (9-23); Calcium 8.6 mg/dL (8.7-10.4); Chloride 112 mmol/L (98-107); Glucose 172 mg/dL (74-106); Sodium 151 mmol/L (136-145)
--- NOTE | 2025-05-21 05:55 | DVH ---
CHEST RADIOGRAPH Indication: Status post extubation Technique: Single frontal view of the chest was obtained COMPARISON: XY CHEST XRAY 1 VIEW on DOS: 05/20/25, XY CHEST PORTABLE on DOS: 05/19/25, XY CHEST XRAY 1 V IEW on DOS: 05/18/25, XY CHEST PORTABLE on DOS: 05/18/25, XY CHEST PORTABLE on DOS: 05/17/25 FINDINGS: Lines and Tubes: Right PICC in satisfactory position. Lungs: Right lower lobe atelectasis/consolidation Pleura: No effusion. No pneumothorax. Cardiomediastinal contours: Unremarkable Bones: Unremarkable IMPRESSION: Right lower lobe atelectasis/consolidation
[2025-05-21 07:56] LABS: Hemoglobin 13.8 g/dL (13.5-17.5)
[2025-05-21 07:58] LABS: Hematocrit 43.5 % (41.0-53.0); Mean Corpuscular Hemoglobin 20.9 pg (28.0-32.0); Mean Corpuscular Volume 65.9 fL (80.0-100.0)
[2025-05-21 08:13] LABS: Chloride 105 mmol/L (98-107); Sodium 145 mmol/L (136-145)
[2025-05-21 08:14] LABS: Anion Gap 11 (5-15); Carbon Dioxide 29 mmol/L (20-31)
[2025-05-21 08:19] LABS: BUN/Creatinine Ratio 27.8 (10.0-20.0)
[2025-05-21 08:24] LABS: Blood Urea Nitrogen 32 mg/dL (9-23); Calcium 8.2 mg/dL (8.7-10.4); Glucose 393 mg/dL (74-106); Potassium 3.1 mmol/L (3.5-5.1)
[2025-05-21] MEDS: PANTOPRAZOLE 40 MG/10 ML VIAL INJ IV SCH (09:04)
[2025-05-21] MEDS: POTASSIUM CHL 20MEQ/100ML 100 ML IV SCH (09:24)
--- NOTE | 2025-05-21 10:09 | DVHPNRES ---
Progress Note Date Seen: May 21, 2025 Resident Creating Document: AGNIESZKA CHENG RESIDENT Has the PT tested + for MRSA If YES, has PT been informed?: No Medical Necessity Reason Pt with a Central, PICC or Fol: Yes The following are medically ne: PICC Line, Wong Catheter Reason for wong catheter: Strict I&O Subjective Review of Systems 74-year-old male with end-stage HFrEF with ejection fraction of 10 % and cirrhosis was previously intubated for acute hypoxic respiratory failure. Now the patient is successfully extubated and stable on NC at 3 L/min, SpO2 of 98%. Hemodynamics BP fluctuating systolic between 130s to 170s, heart rate 92, stable. WBC count improved from 18.3-16.6 today. Hemoglobin and hematocrit normal. Platelets have normalized. Renal function improved BUN reduced to 32 from 36, creatinine is at 1.10 from 1.15, GFR is at 67. LFTs revealed total bilirubin is elevated at 3.0, AST is at 80 high, ALT is at 66 high, ALP is at 474 high. Patient has oral secretions, pending speech/swallow evaluation, not yet tolerating p.o. medications. Patient is on IV hydralazine 10 mg q.6h p.r.n. for BP control given oral intolerance. Plan for coronary angiogram plus or minus PCI tomorrow to evaluate ischemic etiology of heart failure and assess for revascularization. We will proceed for coronary angiogram if BNP less than 1000 prior to catheterization. Objective vital signs Vital Sign Date Time Temp Pulse Resp B/P (MAP) Pulse Ox O2 Delivery O2 Flow Rate FiO2 05/21/25 09:06 174/102 05/21/25 06:30 89 15 99 05/21/25 06:00 Nasal Cannula* 3 32 05/21/25 04:00 97.9 97.9 Total Intake and Output 05/20/25 05/20/25 05/21/25 15:00 23:00 07:00 Intake Total 850.0 ml 500 ml 650 ml Output Total 1100 ml 1600 ml Balance 850.0 ml -600 ml -950 ml medications Current Medications Medications Dose Ordered Sig/Mikki Route Start Time Stop Time Status Last Admin Dose Admin Midazolam HCl 50 ml @ 1 mls/hr Q24H IV 05/14/25 01:15 05/18/25 03:44 3 MLS/HR Lactulose 30 ml BID PO 05/14/25 10:00 05/19/25 21:32 30 ML Fentanyl Citrate 250 ml @ 2.5 mls/hr Q24H IV 05/14/25 10:15 05/16/25 07:07 5 MLS/HR Cefepime HCl 50 ml @ 12.5 mls/hr Q12HR IV 05/14/25 22:00 05/21/25 09:01 12.5 MLS/HR Vancomycin HCl 0 ml @ 0 mls/hr UD IV 05/14/25 12:00 Sodium Chloride 10 ml QSHIFT@10,22 IV 05/14/25 22:00 05/21/25 09:04 10 ML Norepinephrine Bitartrate 32 mg/ Sodium Chloride 250 ml @ 0.938 mls/ hr Q24H IV 05/15/25 09:00 05/16/25 07:01 5.625 MLS/HR Thiamine HCl 100 mg DAILY IV 05/16/25 10:00 05/21/25 09:04 100 MG Dextrose 50 ml UD PRN IV 05/15/25 13:15 Cancel Dextrose 50 ml UD PRN IV 05/15/25 16:45 Enoxaparin Sodium 80 mg Q12HR SC 05/17/25 22:00 05/21/25 09:10 80 MG Purified Water 200 ml Q6HR GT 05/18/25 12:00 05/20/25 04:55 200 ML Diagnostic Test (Pha) 1 strip IQ4HR 05/18/25 20:00 05/21/25 09:14 1 STRIP Insulin Human Regular IQ4HR SC 05/18/25 20:00 05/21/25 09:14 3 UNITS Hydralazine HCl 10 mg Q6HP PRN IV 05/19/25 12:00 05/21/25 09:06 10 MG Enteral Nutritional Formula 1,000 ml 55ML/HR GT 05/20/25 09:45 Metoprolol Tartrate 12.5 mg BID PO 05/20/25 22:00 Sacubitril/ Valsartan 0.5 tab BID PO 05/20/25 22:00 Pantoprazole Sodium 40 mg BID IV 05/21/25 10:00 05/21/25 09:04 40 MG Bumetanide 1 mg BIDD IV 05/21/25 08:15 Potassium Chloride 100 ml @ 50 mls/hr Q2H IV 05/21/25 08:45 05/21/25 12:44 05/21/25 09:24 50 MLS/HR Micafungin Sodium 100 mg/Sodium Chloride 100 ml @ 100 mls/hr DAILY IV 05/21/25 10:00 Examination General-extubated, breathing comfortably on NC. CV-heart rate 92, JVD elevated, S3 gallop, Respiratory-good air movement, no wheezing or crackles. Extremities-trace pulmonary edema. Neuro-awake, conversant. laboratory and microbiology Laboratory Tests 05/21/25 07:25 Test 05/21/25 07:25 Range/Units Serum Glucose 393 #H 74-106 mg/dL Microbiology Date/Time Source Procedure Growth Status 05/18/25 10:35 Sputum Gram Stain - Final Resulted 05/18/25 10:35 Sputum Respiratory Culture - Preliminary Resulted 05/14/25 08:24 Voided Urine Urine Culture - Final Complete 05/14/25 02:46 Nose MRSA Screen - Final Complete 05/13/25 17:25 Blood Blood Culture - Final NO GROWTH AFTER 5 DAYS OF INCUBATION. Complete Problem List/Assessment/Plan Problem List/Assessment/Plan Assessment 1. 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 * SCAI Shock Stage CD (classic/deteriorating cardiogenic shock). * Killip IV (cardiogenic shock). * Acute ischemic vs progressive dilated cardiomyopathy. 2. Cardiogenic shock requiring pressors (dopamine + norepinephrine). 3. Acute hypoxemic respiratory failure (intubated, FiO2 80%, PEEP 7) due to pneumonia + CHF. 4. Right-sided pneumonia , sepsis physiology with lactic acidosis. 5. SAPNA (KDIGO stage 12) from hypoperfusion, sepsis, diuresis. 6. 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 Plan/Recommendation Plan Cardiovascular: * Judicious introduction of GDMT for HFrEF. Initiate BB and ARNI once able to tolerate p.o. *Hydralazine IV for afterload reduction while p.o. not tolerated. *Proceed with coronary angiography tomorrow if BNP less than 1000. This is indicated for advanced HFrEF with unclear ischemic contribution, per ACC/aha class 1 recommendation for evaluation of CAD new or worsening HFrEF. *Strict I/O, daily weights, fluid restriction <1.5 L/day. Trend BNP. Bumex initiated by Renal team. *Monitor for arrhythmias, replenished K more than 4.0, mg > 2 * Hold beta-blockers & spironolactone until hemodynamically stable and off pressers * Evaluate candidacy for MCS (IABP/Impella/LVAD) due to underlying cirrhosis Nephrology follow-up appreciated. Hepatic: * Continue lactulose BID, monitor ammonia. * Trend LFTs, coags. Prophylaxis: * DVT: Enoxaparin. * GI: IV PPI daily. * ICU bundle: head elevation, turning protocol, pressure sore prevention. Case discussed with Dr. Art. Case discussed in detail with the patient and his son and both agreed upon with the discussed plan. Plan discussed with: Patient, Son Dietary Evaluation Review Comments: 1. advance TF to Vital HP 55ml/hr providing 115g protwin, [id number] free water supporting pt's needs at 100% protein, 79% energy. 2. Reassess needs when Pt is off vent, and/or medically feasible for PO feedings. Expected Outcomes/Goals: maintain wt, avoid catablism Visit Coding Cardiology RES Date of Service: May 21, 2025 Billing Provider: GABY ART Sr., MD Cardiology Common Codes: 19440-[id number](AGNIESZKA Real MOLINA RESIDENT May 21, 2025 10:09
[2025-05-21] MEDS: BUMETANIDE 2.5mg/10ml (0.25 mg/ml) INJ IV SCH (11:16)
[2025-05-21 11:26] LABS: Total Cells Counted 100.0 (100)
[2025-05-21] MEDS: VANCOMYCIN 500mg/100mL 100 ML IV SCH (12:50)
[2025-05-21] MEDS: MICAFUNGIN SODIUM 100 MG in SODIUM CHL 0.9% 100 ML IV SCH (13:29)
--- NOTE | 2025-05-21 16:37 | DVHPNRES ---
Progress Note Date Seen: May 21, 2025 Resident Creating Document: DUARTE SPIVEY RESIDENT Has the PT tested + for MRSA If YES, has PT been informed?: No Medical Necessity Reason Pt with a Central, PICC or Fol: Yes The following are medically ne: PICC Line, Wong Catheter Reason for wong catheter: Strict I&O Subjective Review of Systems This is a 74-year-old male with past medical history of CHF on home O2 2 to 3L, diabetes mellitus, liver disease, hypertension, and hyperlipidemia who presented to [facility] ED with complaint of shortness of breaths. Patient reports that he has been experiencing worsening shortness of breaths with associated leg swelling and chest pressure since this morning. Patient was on 87% on 2L despite giving 2 DuoNeb treatments en route, placing him on a non- rebreather mask upon arrival. in the ED patient was hypoxic, increased work of breathing, desaturating on BiPAP and subsequently intubated. Patient was seen and examined in the ICU. status post extubation on 3 L oxygen through nasal cannula. alert oriented x3. side swallow evaluation done with ice chips and applesauce and patient was able to tolerate without any coughing. started pureed diet today and patient downgraded to JENNIFER. recent respiratory culture on 05/18/2025 showed Pseudomonas aeruginosa. started IV Zosyn and discontinued vancomycin and cefepime. Objective vital signs Vital Sign Date Time Temp Pulse Resp B/P (MAP) Pulse Ox O2 Delivery O2 Flow Rate FiO2 05/21/25 16:00 98.8 81 21 161/71 (101) 96 98.8 05/21/25 14:00 Nasal Cannula* 3 32 Total Intake and Output 05/20/25 05/20/25 05/21/25 15:00 23:00 07:00 Intake Total 850.0 ml 500 ml 650 ml Output Total 1100 ml 1600 ml Balance 850.0 ml -600 ml -950 ml medications Current Medications Medications Dose Ordered Sig/Mikki Route Start Time Stop Time Status Last Admin Dose Admin Lactulose 30 ml BID PO 05/14/25 10:00 05/19/25 21:32 30 ML Vancomycin HCl 0 ml @ 0 mls/hr UD IV 05/14/25 12:00 Sodium Chloride 10 ml QSHIFT@10,22 IV 05/14/25 22:00 05/21/25 09:04 10 ML Thiamine HCl 100 mg DAILY IV 05/16/25 10:00 05/21/25 09:04 100 MG Dextrose 50 ml UD PRN IV 05/15/25 13:15 Cancel Dextrose 50 ml UD PRN IV 05/15/25 16:45 Enoxaparin Sodium 80 mg Q12HR SC 05/17/25 22:00 05/21/25 09:10 80 MG Hydralazine HCl 10 mg Q6HP PRN IV 05/19/25 12:00 05/21/25 09:06 10 MG Enteral Nutritional Formula 1,000 ml 55ML/HR GT 05/20/25 09:45 Metoprolol Tartrate 12.5 mg BID PO 05/20/25 22:00 Sacubitril/ Valsartan 0.5 tab BID PO 05/20/25 22:00 Pantoprazole Sodium 40 mg BID IV 05/21/25 10:00 05/21/25 09:04 40 MG Bumetanide 1 mg BIDD IV 05/21/25 08:15 05/21/25 11:16 1 MG Vancomycin HCl 100 ml @ 200 mls/hr Q12H IV 05/21/25 11:00 05/21/25 12:50 200 MLS/HR Diagnostic Test (Pha) 1 strip Q6HR 05/21/25 18:00 UNV Insulin Human Regular Q6HR SC 05/21/25 18:00 UNV Piperacillin Sod/ Tazobactam Sod 100 ml @ 25 mls/hr Q8HR IV 05/21/25 22:00 UNV Examination Physical examination: General Appearance: Alert, Oriented X3, Cooperative, on nasal canula 2L HEENT: Atraumatic, PERRLA, EOMI, Mucous membrane moist/pink Respiratory: Bilateral vesicular breath sound with rales on right lower lobe Cardiovascular: Regular rate, Normal S1, Normal S2, No murmurs, no chest wall tenderness Abdominal: Normal bowel sounds, Soft, No tenderness, No hepatospenomegaly, No masses Extremities: No clubbing, No cyanosis, No edema, Normal pulses, No tenderness/swelling Skin: No rashes, No breakdown, No significant lesion Neuro: Grossly intact cranial nerves Cranial nerves 3-12 NL, Reflexes 2+ Psych/Mental Status: Could not be assessed. laboratory and microbiology Laboratory Tests 05/21/25 07:25 Test 05/21/25 07:25 Range/Units Serum Glucose 393 #H 74-106 mg/dL Microbiology Date/Time Source Procedure Growth Status 05/18/25 10:35 Sputum Gram Stain - Final Complete 05/18/25 10:35 Respiratory Culture - Final Pseudomonas aeruginosa Complete 05/14/25 08:24 Voided Urine Urine Culture - Final Complete 05/14/25 02:46 Nose MRSA Screen - Final Complete 05/13/25 17:25 Blood Blood Culture - Final NO GROWTH AFTER 5 DAYS OF INCUBATION. 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 CARDIOVASCULAR: Acute on chronic decompensated systolic heart failure cardiogenic shock/ septic shock secondary to above NSTEMI type 2 likely secondary to above -chest x-ray demonstrated right-sided pneumonia with pulmonary vascular congestion -BNP> 5000 and trops were mildly elevated and flat - Echo on 02/10 demonstrated EF 10% with end-stage dilated heart failure, RVSP 38 mm Hg - status post extubation, off sedation and pressors - Hold GDM T because pt is NPO - Waiting for swallow evaluation PULMONARY: Acute hypoxic respiratory failure secondary to exacerbation of CHF/ pneumonia right-sided Gram-positive versus Gram-negative community acquired pneumonia possible aspiration pneumonia Rule out lung malignancy - Right lower lobe atelectasis due to mucous plugging Mucous plugging from L6-L10 and R1-R10 RML BAL performed . 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 - Lactulose 30 mL b.i.d. GENITOURINARY: Acute kidney injury likely secondary to shock / VMN improving - Bumex 1 mg IV bid. - strict I&O - monitor BMP ENDOCRINE: Hypoglycemia resolved - monitor blood sugar closely METABOLIC: Moderate protein calorie malnutrition Hypernatremia resolved HEME: Acute DVT of right upper arm Chronic microcytic hypochromic anemia likely due to anemia of chronic disease Thrombocytopenia likely due to cirrhosis - Doppler venous scan of the upper extremity showed deep vein thrombosis of right axillary and subclavian vein and thrombosis of left basilic vein - Therapeutic Lovenox 1 milligram/kg body weight b.i.d. INFECTIOUS DISEASE: Right-sided Gram-positive/ Gram-negative community acquired pneumonia Possible aspiration pneumonia - chest x-ray demonstrated right-sided pneumonia with pulmonary vascular congestion - Preliminary blood cultures were unremarkable and MRSA negative - sputum culture on 05/18 showed Pseudomonas - started IV Zosyn 3.375 g Q 8 hours and discontinued vancomycin and cefepime DIET: Pureed diet DVT prophylax:Lovenox GI prophylaxis:Protonix Bowel regimen:Lactulose Code status: modified DNR, no chest compression LINES/DRAINS/ACCESS: Rt upper arm PICC line on 05/14 ETT: Intubated on 05/13/25 IV access: Rt upper arm PICC line on 05/14, rt femoral arterial line 05/15 Wong catheter: placed on 05/13/2025 DISPOSITION: JENNIFER Patient's status discussed with son and [id number] Critical care time spent more than 63 minutes, including patient care, chart review, and updating the family. Case discussed with Dr. Hopkins Plan discussed with: Patient, Other (Son, [id number] and RN) My Orders My Orders Orders - DUARTE SPIVEY RESIDENT Procedure Category Date Status Time Chest Portable XY 05/21/25 Resulted 04:00 Vancomycin 500mg/100ml PHA 05/21/25 In Process 11:00 Vancomycin Per SOPHIA 05/21/25 In Process Pharmacy Protoc 11:00 Vancomycin,Trough LAB 05/22/25 Verified 22:00 Creatinine LAB 05/22/25 Verified 04:00 Chest Two Views XY 05/21/25 Taken Routine 14:57 Transfer Orders XFER 05/21/25 Transmitted 16:05 Pt Request For Service PT 05/21/25 Logged 16:06 Glucose Blood PHA 05/21/25 Logged (Accu-Chek Comfort 18:00 Insulin R (Human) PHA 05/21/25 Logged (Insulin R) 18:00 Piperacillin-Tazob PHA 05/21/25 Logged 3.375gm (Zosyn 3.375g 16:15 Piperacillin-Tazob PHA 05/21/25 Logged 3.375gm (Zosyn 3.375g 22:00 Dietary Evaluation Review Comments: 1. advance TF to Vital HP 55ml/hr providing 115g protwin, [id number] free water supporting pt's needs at 100% protein, 79% energy. 2. Reassess needs when Pt is off vent, and/or medically feasible for PO feedings. Expected Outcomes/Goals: maintain wt, avoid catablism Date of Service: May 21, 2025 Billing Provider: NOÉ HOPKINS MD Common Visit Codes: [id number] CARE 30-74 MIN DUARTE SPIVEY RESIDENT May 21, 2025 16:37 NOÉ HOPKINS MD May 22, 2025 15:53
[2025-05-21] MEDS: PIPERACILLIN-TAZOB 3.375GM 100 ML IV ONE (17:10)
--- NOTE | 2025-05-21 18:47 | DVH ---
EXAM: XY CHEST TWO VIEWS ROUTINE CLINICAL HISTORY: Differentiate rt pleural effusion from abscess COMPARISON: XY CHEST PORTABLE on DOS: 05/21/25, XY CHEST XRAY 1 VIEW on DOS: 05/20/25, XY CHEST PORTABLE on DOS: 05/19/25, XY CHEST XRAY 1 VIEW on DOS: 05/18/25, XY CHEST PORTABLE on DOS: 05/18/25 TECHNIQUE: Frontal and lateral view of the chest was obtained FINDINGS: Lines and Tubes: Right PICC tip projects over superior vena cava. Lungs: Small right pleural effusion and right basilar opacity Cardiomediastinal contours: Unremarkable Bones: No acute osseous abnormality. IMPRESSION: Small right pleural effusion and right basilar opacity.
[2025-05-21] MEDS: ACCU-CHEK COMFORT CURVE STRIP VI SCH (19:36)
[2025-05-21] MEDS: InsuLIN REG 1unit/0.01ml Soln (100units/ml) SC SCH (19:37)
--- NOTE | 2025-05-21 21:39 | DVHPN2 ---
Progress Note Date Seen: May 21, 2025 Resident Creating Document: LING VALENZUELA RESIDENT Has the PT tested + for MRSA If YES, has PT been informed?: No Medical Necessity Reason Pt with a Central, PICC or Fol: Yes The following are medically ne: PICC Line, Wong Catheter Reason for wong catheter: Strict I&O Subjective Review of Systems 74-year-old female with past medical history of CHF, on home oxygen 2-3 L, diabetes mellitus, liver disease, hypertension hyperlipidemia presented to the [facility] with complaints of shortness of breath. Patient was initially on nasal cannula then non-rebreather then BiPAP and eventually intubated. Patient was found to have SAPNA and nephrology was consulted. Interval events 05/20/25 pt was extubated yesterday Input and Output 2Lt/-2.7 Lt with a net of - 647 ml mentions of no active complaints pt feels weak to talk on nasal canula Objective vital signs Vital Sign Date Time Temp Pulse Resp B/P (MAP) Pulse Ox O2 Delivery O2 Flow Rate FiO2 05/21/25 20:00 90 05/21/25 20:00 98.7 19 164/90 (114) 98.7 05/21/25 20:00 97 Nasal Cannula* 4 36 Total Intake and Output 05/20/25 05/20/25 05/21/25 15:00 23:00 07:00 Intake Total 850.0 ml 500 ml 650 ml Output Total 1100 ml 1600 ml Balance 850.0 ml -600 ml -950 ml medications Current Medications Medications Dose Ordered Sig/Mikki Route Start Time Stop Time Status Last Admin Dose Admin Lactulose 30 ml BID PO 05/14/25 10:00 05/19/25 21:32 30 ML Vancomycin HCl 0 ml @ 0 mls/hr UD IV 05/14/25 12:00 Sodium Chloride 10 ml QSHIFT@10,22 IV 05/14/25 22:00 05/21/25 09:04 10 ML Thiamine HCl 100 mg DAILY IV 05/16/25 10:00 05/21/25 09:04 100 MG Dextrose 50 ml UD PRN IV 05/15/25 13:15 Cancel Dextrose 50 ml UD PRN IV 05/15/25 16:45 Enoxaparin Sodium 80 mg Q12HR SC 05/17/25 22:00 05/21/25 09:10 80 MG Hydralazine HCl 10 mg Q6HP PRN IV 05/19/25 12:00 05/21/25 19:38 10 MG Enteral Nutritional Formula 1,000 ml 55ML/HR GT 05/20/25 09:45 Metoprolol Tartrate 12.5 mg BID PO 05/20/25 22:00 Sacubitril/ Valsartan 0.5 tab BID PO 05/20/25 22:00 Pantoprazole Sodium 40 mg BID IV 05/21/25 10:00 05/21/25 09:04 40 MG Bumetanide 1 mg BIDD IV 05/21/25 08:15 05/21/25 17:11 1 MG Vancomycin HCl 100 ml @ 200 mls/hr Q12H IV 05/21/25 11:00 05/21/25 12:50 200 MLS/HR Diagnostic Test (Pha) 1 strip Q6HR 05/21/25 18:00 05/21/25 19:36 1 STRIP Insulin Human Regular Q6HR SC 05/21/25 18:00 05/21/25 19:37 2 UNITS Piperacillin Sod/ Tazobactam Sod 100 ml @ 25 mls/hr Q8HR IV 05/21/25 22:00 Examination Examination General Appearance: Sedated and intubated HEENT: EOMI Respiratory: Clear to auscultation, Normal air movement, on mechanical ventilator Cardiovascular: Regular rate, Normal S1, Normal S2 Abdominal: Normal bowel sounds Extremities: No cyanosis, No edema, Normal pulses, No tenderness/swelling Skin: No rashes, No breakdown Neuro: Sedated and intubated laboratory and microbiology Laboratory Tests 05/21/25 17:26 05/21/25 07:25 Test 05/21/25 07:25 Range/Units Serum Glucose 393 #H 74-106 mg/dL Microbiology Date/Time Source Procedure Growth Status 05/18/25 10:35 Sputum Gram Stain - Final Complete 05/18/25 10:35 Respiratory Culture - Final Pseudomonas aeruginosa Complete 05/14/25 08:24 Voided Urine Urine Culture - Final Complete 05/14/25 02:46 Nose MRSA Screen - Final Complete 05/13/25 17:25 Blood Blood Culture - Final NO GROWTH AFTER 5 DAYS OF INCUBATION. Complete Labs and/or images reviewed: Labs reviewed by me, Image(s) reviewed by me Problem List/Assessment/Plan Problem List/Assessment/Plan Assessment/plan # Acute kidney injury likely in the setting of shock , related to acute tubular necrosis likely, improving Input and Output 2Lt/-2.7 Lt with a net of - 647 ml off dopamine drip kidney function improved from 1.36 creatinine to 1.0 # hypernatremia, resolved # hypocalcemia, asymptomatic # acute hypoxic respiratory failure, was on ventilator, extubated # shock, likely cardiogenic, possible septic shock component, resolved # acute HFrEF exacerbation # diabetes mellitus type 2 # history of liver disease # history of hypertension # hyperlipidemia Plan Strict input output Monitor kidney function and electrolytes Improvement in kidney function decreased the dose of Bumex to 1 mg BID from 2.5 mg BID Avoid nephrotoxic drugs discontinue free water 200 ml Q6hrs discontinue D5W @ 50 cc/hr Case discussion with Dr. Faust Plan discussed with: Patient, Other My Orders My Orders Orders - LING VALENZUELA RESIDENT Procedure Category Date Status Time Bumetanide Injection PHA 05/21/25 In Process (Bumex Injection) 08:15 Dietary Evaluation Review Comments: 1. advance TF to Vital HP 55ml/hr providing 115g protwin, [id number] free water supporting pt's needs at 100% protein, 79% energy. 2. Reassess needs when Pt is off vent, and/or medically feasible for PO feedings. Expected Outcomes/Goals: maintain wt, avoid catablism LING VALENZUELA RESIDENT May 21, 2025 21:39
[2025-05-21] MEDS: PIPERACILLIN-TAZOB 3.375GM 100 ML IV SCH (22:15)
[2025-05-22] VITALS (42 sets, daily range): BP systolic 125–174; BP diastolic 50–96; PULSE 60–110; RESP 9–21; TEMP 97–98.2; O2SAT 85–99
[2025-05-22 06:00] LABS: Hematocrit 46.2 % (41.0-53.0); Hemoglobin 14.6 g/dL (13.5-17.5); Mean Corpuscular Hemoglobin 21.0 pg (28.0-32.0); Mean Corpuscular Volume 66.3 fL (80.0-100.0); Nucleated Red Blood Cells % 0.2 %
[2025-05-22 06:13] LABS: INR 1.26 (0.9-1.15); Partial Thromboplastin Time 37.4 SEC (24.5-34.5); Prothrombin Time 13.1 sec (9.3-11.8)
[2025-05-22 06:22] LABS: Anion Gap 13 (5-15); BUN/Creatinine Ratio 34.3 (10.0-20.0); Calcium 8.7 mg/dL (8.7-10.4); Carbon Dioxide 30 mmol/L (20-31); Total Protein 6.6 g/dL (5.7-8.2)
[2025-05-22 06:35] LABS: Alanine Aminotransferase 62 U/L (7-40); Albumin 2.9 g/dL (3.2-4.8); Alkaline Phosphatase 419 U/L (46-116); Bilirubin, Total 3.5 mg/dL (0.2-1.0); Blood Urea Nitrogen 36 mg/dL (9-23); Chloride 113 mmol/L (98-107); Glucose 149 mg/dL (74-106); Potassium 2.8 mmol/L (3.5-5.1); Sodium 156 mmol/L (136-145)
[2025-05-22] MEDS: POTASSIUM CHL 20MEQ/100ML 100 ML IV SCH ×2 (08:44→10:15)
[2025-05-22] MEDS ORDERED: POTASSIUM CHL 20MEQ/100ML 100 ML IV ONE (08:45)
[2025-05-22] MEDS: PANTOPRAZOLE 40 MG TAB PO ONE (09:59)
[2025-05-22] MEDS ORDERED: POTASSIUM CHL 20MEQ/100ML 100 ML IV SCH (10:00)
[2025-05-22] MEDS: METOPROLOL TARTRATE 25 MG TAB PO SCH (10:15)
[2025-05-22] MEDS: AMIODARONE BOLUS KIT 100 ML IV ONE (10:55)
[2025-05-22] MEDS: AMIODARONE 360mg/200mL PREMIX 200 ML IV ONE (11:10)
--- NOTE | 2025-05-22 13:45 | DVHPNRES ---
Progress Note Date Seen: May 22, 2025 Resident Creating Document: AGNIESZKA CHENG RESIDENT Has the PT tested + for MRSA If YES, has PT been informed?: No Medical Necessity Reason Pt with a Central, PICC or Fol: Yes The following are medically ne: PICC Line, Wong Catheter Reason for wong catheter: Strict I&O Subjective Review of Systems 74-YEAR-OLD MALE WITH ADVANCED HFREF WITH EJECTION FRACTION OF 10%, CIRRHOSIS AND PRIOR RESPIRATORY FAILURE. Today-patient is on NC 2 L/min, saturating 97%, FiO2 28%. Chest x-ray revealed small right pleural effusion with right basilar opacity likely atelectasis versus pneumonia. BNP remained elevated at 1600-planned coronary angiogram deferred. Telemetry/EKG-initial AFib with RVR with heart rate of 100-140, now on amiodarone drip. Persistent paroxysmal AFib-started on amiodarone loading followed by 200 mg p.o. q.12h. Metoprolol tartrate at 25 mg p.o. b.i.d. for rate control. Bumex reduced to 1 mg b.i.d., Entresto titrated to full dose as tolerated. Potassium was critically low at 2.8-repleted. Bilirubin elevated at 3.5, AST 101, ALT 162, ALP at 492. Urine output adequate at 1.36 mL/kg per hour. Hemodynamically stable-BP systolic 120s to 150s, heart rate now at 71. Objective vital signs Vital Sign Date Time Temp Pulse Resp B/P (MAP) Pulse Ox O2 Delivery O2 Flow Rate FiO2 05/22/25 13:00 72 20 141/69 (93) 05/22/25 12:30 98.2 98.2 05/22/25 12:30 97 Nasal Cannula* 2 28 Total Intake and Output 05/21/25 05/21/25 05/22/25 15:00 23:00 07:00 Intake Total 450.0 ml 50 ml 440 ml Output Total 1330 ml 1500 ml Balance 450.0 ml -1280 ml -1060 ml medications Current Medications Medications Dose Ordered Sig/Mikki Route Start Time Stop Time Status Last Admin Dose Admin Sodium Chloride 10 ml QSHIFT@10,22 IV 05/14/25 22:00 05/22/25 10:14 10 ML Thiamine HCl 100 mg DAILY IV 05/16/25 10:00 05/21/25 09:04 100 MG Dextrose 50 ml UD PRN IV 05/15/25 13:15 Cancel Dextrose 50 ml UD PRN IV 05/15/25 16:45 Enoxaparin Sodium 80 mg Q12HR SC 05/17/25 22:00 05/21/25 22:16 80 MG Hydralazine HCl 10 mg Q6HP PRN IV 05/19/25 12:00 05/22/25 02:02 10 MG Enteral Nutritional Formula 1,000 ml 55ML/HR GT 05/20/25 09:45 Sacubitril/ Valsartan 0.5 tab BID PO 05/20/25 22:00 05/22/25 10:14 0.5 TAB Vancomycin HCl 100 ml @ 200 mls/hr Q12H IV 05/21/25 11:00 05/22/25 10:55 200 MLS/HR Diagnostic Test (Pha) 1 strip Q6HR 05/21/25 18:00 05/22/25 12:32 1 STRIP Insulin Human Regular Q6HR SC 05/21/25 18:00 05/21/25 19:37 2 UNITS Piperacillin Sod/ Tazobactam Sod 100 ml @ 25 mls/hr Q8HR IV 05/21/25 22:00 05/22/25 06:03 25 MLS/HR Pantoprazole Sodium 40 mg DAILY@0600 PO 05/23/25 06:00 Metoprolol Tartrate 25 mg BID PO 05/22/25 10:00 05/22/25 10:15 25 MG Potassium Chloride 100 ml @ 50 mls/hr Q2H IV 05/22/25 10:00 05/22/25 13:59 05/22/25 12:30 50 MLS/HR Amiodarone HCL/ Dextrose 200 ml @ 16.66 mls/ hr Q12H IV 05/22/25 16:30 Examination General-extubated, breathing comfortably on NC. CV-heart rate 71, paroxysmal AFib, JVD elevated, S3 gallop, Respiratory-good air movement, no wheezing or crackles. Extremities-trace pulmonary edema. Neuro-awake, conversant. laboratory and microbiology Laboratory Tests 05/22/25 05:36 Test 05/22/25 05:36 Range/Units Serum Glucose 149 #H 74-106 mg/dL Microbiology Date/Time Source Procedure Growth Status 05/18/25 10:35 Sputum Gram Stain - Final Complete 05/18/25 10:35 Respiratory Culture - Final Pseudomonas aeruginosa Complete 05/14/25 08:24 Voided Urine Urine Culture - Final Complete 05/14/25 02:46 Nose MRSA Screen - Final Complete 05/13/25 17:25 Blood Blood Culture - Final NO GROWTH AFTER 5 DAYS OF INCUBATION. Complete Problem List/Assessment/Plan Problem List/Assessment/Plan Assessment 1. 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 * SCAI Shock Stage CD (classic/deteriorating cardiogenic shock). * Killip IV (cardiogenic shock). * Acute ischemic vs progressive dilated cardiomyopathy. Paroxysmal AFib with RVR/frequent PVCs 2. Cardiogenic shock requiring pressors (dopamine + norepinephrine). 3. Acute hypoxemic respiratory failure (intubated, FiO2 80%, PEEP 7) due to pneumonia + CHF. 4. Right-sided pneumonia , sepsis physiology with lactic acidosis. 5. SAPNA (KDIGO stage 12) from hypoperfusion, sepsis, diuresis. 6. 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 Plan/Recommendation Plan Cardiovascular: Continue amiodarone 200 mg p.o. q.12h for AFib suppression, monitor QTC. * Judicious introduction of GDMT for HFrEF. Continue metoprolol tartrate 25 mg b.i.d. for rate control, maintain Entresto full dose. * plan for coronary angiography on Tuesday once BNP less than 1000 and patient able to tolerate lying flat.. This is indicated for advanced HFrEF with unclear ischemic contribution, per ACC/aha class 1 recommendation for evaluation of CAD new or worsening HFrEF. *Strict I/O, daily weights, fluid restriction <1.5 L/day. Trend BNP. Bumex initiated by Renal team. *Monitor for arrhythmias, replenished K more than 4.0, mg > 2 * Evaluate candidacy for MCS (IABP/Impella/LVAD) due to underlying cirrhosis Nephrology follow-up appreciated. Hepatic: * Continue lactulose BID, monitor ammonia. * Trend LFTs, coags. Prophylaxis: * DVT: Enoxaparin. * GI: IV PPI daily. * ICU bundle: head elevation, turning protocol, pressure sore prevention. Case discussed with Dr. Art. Case discussed in detail with the patient and his son and both agreed upon with the discussed plan. Plan discussed with: Daughter, Son, Other (RN) My Orders My Orders Orders - AGNIESZKA CHENG Procedure Category Date Status Time Npo Except For [facility] 05/22/25 In Process Medications 00:01 Obtain Consent For: ORDERS 05/21/25 Transmitted 15:12 Hold Enoxaparin Day [facility] 05/22/25 In Process Of Procedu 00:01 Shave Both Groins [facility] 05/21/25 In Process 15:12 Provide Education [facility] 05/21/25 In Process Materials 15:12 Cl Left Heart Cath CL 05/22/25 Logged 04:00 Comprehensive LAB 05/23/25 Verified Metabolic Panel 04:00 Npo (Nothing By DIET 05/22/25 Transmitted Mouth) Diet Breakfast Obtain Consent For [facility] 05/21/25 In Process Anesthesia 15:12 Dietary Evaluation Review Comments: 1. advance TF to Vital HP 55ml/hr providing 115g protwin, [id number] free water supporting pt's needs at 100% protein, 79% energy. 2. Reassess needs when Pt is off vent, and/or medically feasible for PO feedings. Expected Outcomes/Goals: maintain wt, avoid catablism Visit Coding Cardiology RES Date of Service: May 22, 2025 Billing Provider: GABY ART Sr., MD Cardiology Common Codes: [id number] HOSP CARE(High AGNIESZKA CHENG RESIDENT May 22, 2025 13:45
[2025-05-22] MEDS: SPIRONOLACTONE 25 MG TAB PO ONE (16:00)
[2025-05-22] MEDS: D5W 5% 1,000 ML IV SCH (16:00)
[2025-05-22] MEDS: AMIODARONE 360mg/200mL PREMIX 200 ML IV SCH (16:18)
[2025-05-22] MEDS: SPIRONOLACTONE 25 MG TAB ONE (16:33)
--- NOTE | 2025-05-22 16:39 | DVHPN2 ---
Progress Note - Dictate Date Seen: May 22, 2025 Has the PT tested + for MRSA If YES, has PT been informed?: No Medical Necessity Reason Pt with a Central, PICC or Fol: Yes The following are medically ne: PICC Line, Wong Catheter Reason for wong catheter: Strict I&O Subjective Patient was seen and evaluated in follow-up in the [facility]. No overnight events. Patient complains of generalized discomfort. Patient is scheduled for LHC today. WBC 13, PT 13.1, INR 1.26, PTT 37.4, NA 156, K 2.8, CL 113, BUN 36, AST 101, ALT 62. vital signs Vital Sign Date Time Temp Pulse Resp B/P (MAP) Pulse Ox O2 Delivery O2 Flow Rate FiO2 05/22/25 13:00 72 20 141/69 (93) 05/22/25 12:30 98.2 98.2 05/22/25 12:30 97 Nasal Cannula* 2 28 Total Intake and Output 05/21/25 05/21/25 05/22/25 15:00 23:00 07:00 Intake Total 450.0 ml 50 ml 440 ml Output Total 1330 ml 1500 ml Balance 450.0 ml -1280 ml -1060 ml medications Current Medications Medications Dose Ordered Sig/Mikki Route Start Time Stop Time Status Last Admin Dose Admin Sodium Chloride 10 ml QSHIFT@, IV 05/14/25 22:00 05/22/25 10:14 10 ML Thiamine HCl 100 mg DAILY IV 05/16/25 10:00 05/21/25 09:04 100 MG Dextrose 50 ml UD PRN IV 05/15/25 13:15 Cancel Dextrose 50 ml UD PRN IV 05/15/25 16:45 Enoxaparin Sodium 80 mg Q12HR SC 05/17/25 22:00 05/21/25 22:16 80 MG Hydralazine HCl 10 mg Q6HP PRN IV 05/19/25 12:00 05/22/25 02:02 10 MG Enteral Nutritional Formula 1,000 ml 55ML/HR GT 05/20/25 09:45 Sacubitril/ Valsartan 0.5 tab BID PO 05/20/25 22:00 05/22/25 10:14 0.5 TAB Vancomycin HCl 100 ml @ 200 mls/hr Q12H IV 05/21/25 11:00 05/22/25 10:55 200 MLS/HR Diagnostic Test (Pha) 1 strip Q6HR 05/21/25 18:00 05/22/25 12:32 1 STRIP Insulin Human Regular Q6HR SC 05/21/25 18:00 05/21/25 19:37 2 UNITS Piperacillin Sod/ Tazobactam Sod 100 ml @ 25 mls/hr Q8HR IV 05/21/25 22:00 05/22/25 06:03 25 MLS/HR Pantoprazole Sodium 40 mg DAILY@0600 PO 05/23/25 06:00 Metoprolol Tartrate 25 mg BID PO 05/22/25 10:00 05/22/25 10:15 25 MG Potassium Chloride 100 ml @ 50 mls/hr Q2H IV 05/22/25 10:00 05/22/25 13:59 05/22/25 12:30 50 MLS/HR Amiodarone HCL/ Dextrose 200 ml @ 16.66 mls/ hr Q12H IV 05/22/25 16:30 objective GENERAL: Alert and oriented x 3. No acute distress. EYES: PERRL, EOMI. Anicteric. HENT: Moist mucous membranes. LUNGS: Decreased breath sounds. CARDIOVASCULAR: Regular rate and rhythm. ABDOMEN: Distended. EXTREMITIES: No edema. NEUROLOGIC: No focal neurological deficits. SKIN: Warm, dry. 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 NYHA IV / ACC-AHA Stage D. SCAI Shock Stage CD (classic/deteriorating cardiogenic shock). Killip IV (cardiogenic shock). Acute ischemic vs progressive dilated cardiomyopathy. Cardiogenic shock requiring pressors (dopamine + norepinephrine, now discontinued). Acute hypoxemic respiratory failure (intubated, FiO2 80%, PEEP 7) due to pneumonia + CHF. Right-sided pneumonia , sepsis physiology with lactic acidosis. SAPNA (KDIGO stage 12) from hypoperfusion, sepsis, diuresis. 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 Plan Continued all current supportive medical care. Patient has been seen by Elysia Milner, PHYSICIAN PRACTICE CONSULTANT on my behalf. We have discussed the plan with the patient. Judicious introduction of GDMT for HFrEF. Initiate BB and ARNI. Strict I/O, daily weights, fluid restriction <1.5 L/day. Trend BNP. Bumex initiated by Renal team. Replete electrolytes as necessary. Monitor for arrhythmias, replenished K more than 4.0, Mg > 2 Evaluate candidacy for MCS (IABP/Impella/LVAD) prognosis limited by cirrhosis and questionable history of cancer. Nephrology follow-up and recommendations appreciated. Prophylaxis: DVT: Enoxaparin. GI: IV PPI daily. ICU bundle: head elevation, turning protocol, pressure sore prevention. Additional plan as per the hospital course. Assessment/Plan Continued all current supportive medical care. IV Amiodarone. DVT and GI prophylactics. IV Hydralazine for SBP > 160. Metoprolol. IV antibiotics as ordered. Entresto. Additional plan as per the hospital course. Critical care time of 45 minutes provided to include time spent evaluation of patient at bedside, when appropriate patient/family education for diagnosis, treatment plan, review of pertinent medical information and discussion of care with specialty providers and PCP. Dietary Evaluation Review Comments: 1. advance TF to Vital HP 55ml/hr providing 115g protwin, [id number] free water supporting pt's needs at 100% protein, 79% energy. 2. Reassess needs when Pt is off vent, and/or medically feasible for PO feedings. Expected Outcomes/Goals: maintain wt, avoid catablism Plan discussed with: Patient RENATA PEDRAZA MD May 22, 2025 13:36
--- NOTE | 2025-05-22 16:39 | DVHPN2 ---
Progress Note Date Seen: May 22, 2025 Resident Creating Document: LING VALENZUELA RESIDENT Has the PT tested + for MRSA If YES, has PT been informed?: No Medical Necessity Reason Pt with a Central, PICC or Fol: Yes The following are medically ne: PICC Line, Wong Catheter Reason for wong catheter: Strict I&O Subjective Review of Systems pt is confused on 2l NC Urine output in last 24 hours is 2.8 L Objective vital signs Vital Sign Date Time Temp Pulse Resp B/P (MAP) Pulse Ox O2 Delivery O2 Flow Rate FiO2 05/22/25 16:30 69 14 168/83 (111) 05/22/25 16:15 97 Nasal Cannula* 2 28 05/22/25 12:30 98.2 98.2 Total Intake and Output 05/21/25 05/21/25 05/22/25 15:00 23:00 07:00 Intake Total 450.0 ml 50 ml 440 ml Output Total 1330 ml 1500 ml Balance 450.0 ml -1280 ml -1060 ml medications Current Medications Medications Dose Ordered Sig/Mikki Route Start Time Stop Time Status Last Admin Dose Admin Sodium Chloride 10 ml QSHIFT@10,22 IV 05/14/25 22:00 05/22/25 10:14 10 ML Thiamine HCl 100 mg DAILY IV 05/16/25 10:00 05/21/25 09:04 100 MG Dextrose 50 ml UD PRN IV 05/15/25 13:15 Cancel Dextrose 50 ml UD PRN IV 05/15/25 16:45 Enoxaparin Sodium 80 mg Q12HR SC 05/17/25 22:00 05/21/25 22:16 80 MG Hydralazine HCl 10 mg Q6HP PRN IV 05/19/25 12:00 05/22/25 02:02 10 MG Enteral Nutritional Formula 1,000 ml 55ML/HR GT 05/20/25 09:45 Diagnostic Test (Pha) 1 strip Q6HR 05/21/25 18:00 05/22/25 12:32 1 STRIP Insulin Human Regular Q6HR SC 05/21/25 18:00 05/21/25 19:37 2 UNITS Piperacillin Sod/ Tazobactam Sod 100 ml @ 25 mls/hr Q8HR IV 05/21/25 22:00 05/22/25 14:02 25 MLS/HR Pantoprazole Sodium 40 mg DAILY@0600 PO 05/23/25 06:00 Metoprolol Tartrate 25 mg BID PO 05/22/25 10:00 05/22/25 10:15 25 MG Amiodarone HCL/ Dextrose 200 ml @ 16.66 mls/ hr Q12H IV 05/22/25 16:30 05/22/25 16:18 16.66 MLS/HR Sacubitril/ Valsartan 1 tab BID PO 05/22/25 22:00 Dextrose 1,000 ml @ 30 mls/hr Q24H IV 05/22/25 16:00 05/22/25 16:00 30 MLS/HR Examination Examination General Appearance: Confused HEENT: EOMI Respiratory: Clear to auscultation, Normal air movement Cardiovascular: Regular rate, Normal S1, Normal S2 Abdominal: Normal bowel sounds Extremities: No cyanosis, No edema, Normal pulses, No tenderness/swelling Skin: No rashes, No breakdown Neuro: Confused laboratory and microbiology Laboratory Tests 05/22/25 05:36 Test 05/22/25 05:36 Range/Units Serum Glucose 149 #H 74-106 mg/dL Microbiology Date/Time Source Procedure Growth Status 05/18/25 10:35 Sputum Gram Stain - Final Complete 05/18/25 10:35 Respiratory Culture - Final Pseudomonas aeruginosa Complete 05/14/25 08:24 Voided Urine Urine Culture - Final Complete 05/14/25 02:46 Nose MRSA Screen - Final Complete 05/13/25 17:25 Blood Blood Culture - Final NO GROWTH AFTER 5 DAYS OF INCUBATION. Complete Labs and/or images reviewed: Labs reviewed by me, Image(s) reviewed by me Problem List/Assessment/Plan Problem List/Assessment/Plan Assessment/plan # Acute kidney injury likely in the setting of shock , related to acute tubular necrosis likely, improving Urine output 2.8 L in last 24 hours off dopamine drip kidney function improved # hypokalemia # hypernatremia # atrial fibrillation # hypocalcemia, asymptomatic # acute hypoxic respiratory failure, was on ventilator, extubated # shock, likely cardiogenic, possible septic shock component, resolved # acute HFrEF exacerbation # diabetes mellitus type 2 # history of liver disease # history of hypertension # hyperlipidemia Plan Strict input output Monitor kidney function and electrolytes Improvement in kidney function Discontinued Bumex, we will assess volume status tomorrow to resume low-dose Bumex Started the patient on spironolactone 12.5 mg once today and 25 mg daily starting tomorrow Start D50 at 30 cc/hour for hyponatremia as patient is NPO and pending swallow evaluation Avoid nephrotoxic drugs Hypokalemia corrected by primary team, monitor closely pt planned to have LHC on tuesday Case discussion with Dr. Faust Plan discussed with: Other My Orders My Orders Orders - LING VALENZUELA Procedure Category Date Status Time Basic Metabolic Panel LAB 05/23/25 Verified 04:00 Magnesium LAB 05/23/25 Verified 04:00 Spironolactone PHA 05/23/25 Verified (Aldactone) 10:00 Dietary Evaluation Review Comments: 1. advance TF to Vital HP 55ml/hr providing 115g protwin, [id number] free water supporting pt's needs at 100% protein, 79% energy. 2. Reassess needs when Pt is off vent, and/or medically feasible for PO feedings. Expected Outcomes/Goals: maintain wt, avoid catablism LING VALENZUELA RESIDENT May 22, 2025 16:39
--- NOTE | 2025-05-22 19:22 | DVHPNRES ---
Progress Note Date Seen: May 22, 2025 Resident Creating Document: DUARTE SPIVEY RESIDENT Has the PT tested + for MRSA If YES, has PT been informed?: No Medical Necessity Reason Pt with a Central, PICC or Fol: Yes The following are medically ne: PICC Line, Wong Catheter Reason for wong catheter: Strict I&O Subjective Review of Systems This is a 74-year-old male with past medical history of CHF on home O2 2 to 3L, diabetes mellitus, liver disease, hypertension, and hyperlipidemia who presented to [facility] ED with complaint of shortness of breaths. Patient reports that he has been experiencing worsening shortness of breaths with associated leg swelling and chest pressure since this morning. Patient was on 87% on 2L despite giving 2 DuoNeb treatments en route, placing him on a non- rebreather mask upon arrival. in the ED patient was hypoxic, increased work of breathing, desaturating on BiPAP and subsequently intubated. Patient was seen and examined in the ICU. status post extubation on 3 L oxygen through nasal cannula. alert oriented x3. Last night the patient had an episodes of AFib with RVR and heart rate raised up to 148, cardiology started IV amiodarone as per protocol. Left heart catheterization canceled today because of atrial fibrillation and patient was not able to lying flat on the back. Bed side swallow evaluation done with ice chips and applesauce and patient was able to tolerate without any coughing. patient was not able to tolerate pureed diet and Pending swallow evaluation . Objective vital signs Vital Sign Date Time Temp Pulse Resp B/P (MAP) Pulse Ox O2 Delivery O2 Flow Rate FiO2 05/22/25 18:03 163/77 05/22/25 18:00 70 18 95 05/22/25 18:00 Nasal Cannula* 2 28 05/22/25 17:00 97.1 97.1 Total Intake and Output 05/21/25 05/21/25 05/22/25 15:00 23:00 07:00 Intake Total 450.0 ml 50 ml 440 ml Output Total 1330 ml 1500 ml Balance 450.0 ml -1280 ml -1060 ml medications Current Medications Medications Dose Ordered Sig/Mikki Route Start Time Stop Time Status Last Admin Dose Admin Sodium Chloride 10 ml QSHIFT@10,22 IV 05/14/25 22:00 05/22/25 10:14 10 ML Thiamine HCl 100 mg DAILY IV 05/16/25 10:00 05/21/25 09:04 100 MG Dextrose 50 ml UD PRN IV 05/15/25 13:15 Cancel Dextrose 50 ml UD PRN IV 05/15/25 16:45 Enoxaparin Sodium 80 mg Q12HR SC 05/17/25 22:00 05/21/25 22:16 80 MG Hydralazine HCl 10 mg Q6HP PRN IV 05/19/25 12:00 05/22/25 18:03 10 MG Enteral Nutritional Formula 1,000 ml 55ML/HR GT 05/20/25 09:45 Diagnostic Test (Pha) 1 strip Q6HR 05/21/25 18:00 05/22/25 17:55 1 STRIP Insulin Human Regular Q6HR SC 05/21/25 18:00 05/21/25 19:37 2 UNITS Piperacillin Sod/ Tazobactam Sod 100 ml @ 25 mls/hr Q8HR IV 05/21/25 22:00 05/22/25 14:02 25 MLS/HR Pantoprazole Sodium 40 mg DAILY@0600 PO 05/23/25 06:00 Metoprolol Tartrate 25 mg BID PO 05/22/25 10:00 05/22/25 10:15 25 MG Amiodarone HCL/ Dextrose 200 ml @ 16.66 mls/ hr Q12H IV 05/22/25 16:30 05/22/25 16:18 16.66 MLS/HR Sacubitril/ Valsartan 1 tab BID PO 05/22/25 22:00 Dextrose 1,000 ml @ 30 mls/hr Q24H IV 05/22/25 16:00 05/22/25 16:00 30 MLS/HR Spironolactone 25 mg DAILY PO 05/23/25 10:00 Examination Physical examination: General Appearance: Alert, Oriented X3, Cooperative, on nasal canula 2L HEENT: Atraumatic, PERRLA, EOMI, Mucous membrane moist/pink Respiratory: Bilateral vesicular breath sound with rales on right lower lobe Cardiovascular: Regular rate, Normal S1, Normal S2, No murmurs, no chest wall tenderness Abdominal: Normal bowel sounds, Soft, No tenderness, No hepatospenomegaly, No masses Extremities: No clubbing, No cyanosis, No edema, Normal pulses, No tenderness/swelling Skin: No rashes, No breakdown, No significant lesion Neuro: Grossly intact cranial nerves Cranial nerves 3-12 NL, Reflexes 2+ Psych/Mental Status: Could not be assessed. laboratory and microbiology Laboratory Tests 05/22/25 05:36 Test 05/22/25 05:36 Range/Units Serum Glucose 149 #H 74-106 mg/dL Microbiology Date/Time Source Procedure Growth Status 05/18/25 10:35 Sputum Gram Stain - Final Complete 05/18/25 10:35 Respiratory Culture - Final Pseudomonas aeruginosa Complete 05/14/25 08:24 Voided Urine Urine Culture - Final Complete 05/14/25 02:46 Nose MRSA Screen - Final Complete 05/13/25 17:25 Blood Blood Culture - Final NO GROWTH AFTER 5 DAYS OF INCUBATION. 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 CARDIOVASCULAR: Acute on chronic decompensated systolic heart failure cardiogenic shock/ septic shock secondary to above NSTEMI type 2 likely secondary to above Paroxysmal atrial fibrillation with RVR and secondary hypercoagulable state -chest x-ray demonstrated right-sided pneumonia with pulmonary vascular congestion -BNP> 5000 and trops were mildly elevated and flat - Echo on 02/10 demonstrated EF 10% with end-stage dilated heart failure, RVSP 38 mm Hg - status post extubation, off sedation and pressors - Waiting for swallow evaluation - IV amiodarone as per protocol - [facility] canceled today due to AFib - continue GDM T with metoprolol, Entresto and spironolactone PULMONARY: Acute hypoxic respiratory failure secondary to exacerbation of CHF/ pneumonia right-sided Gram-positive versus Gram-negative community acquired pneumonia possible aspiration pneumonia Rule out lung malignancy - Right lower lobe atelectasis due to mucous plugging Mucous plugging from L6-L10 and R1-R10 RML BAL performed . 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 - Lactulose 30 mL b.i.d. GENITOURINARY: Acute kidney injury likely secondary to shock / VMN improved - strict I&O - monitor BMP ENDOCRINE: Hypoglycemia resolved - monitor blood sugar closely METABOLIC: Moderate protein calorie malnutrition Hypernatremia - IV 5% DA at 30 mL/hours HEME: Acute DVT of right upper arm Chronic microcytic hypochromic anemia likely due to anemia of chronic disease Thrombocytopenia likely due to cirrhosis - Doppler venous scan of the upper extremity showed deep vein thrombosis of right axillary and subclavian vein and thrombosis of left basilic vein - Therapeutic Lovenox 1 milligram/kg body weight b.i.d. INFECTIOUS DISEASE: Right-sided Gram-positive/ Gram-negative community acquired pneumonia Possible aspiration pneumonia - chest x-ray demonstrated right-sided pneumonia with pulmonary vascular congestion - Preliminary blood cultures were unremarkable and MRSA negative - sputum culture on 05/18 showed Pseudomonas - IV Zosyn 3.375 g Q 8 hours and discontinued vancomycin and cefepime DIET: NPO DVT prophylax:Lovenox GI prophylaxis:Protonix Bowel regimen:Lactulose Code status: modified DNR, no chest compression LINES/DRAINS/ACCESS: Rt upper arm PICC line on 05/14 ETT: Intubated on 05/13/25 IV access: Rt upper arm PICC line on 05/14, rt femoral arterial line 05/15 Wong catheter: placed on 05/13/2025 DISPOSITION: [facility] Patient's status discussed with son and [id number] Critical care time spent more than 61 minutes, including patient care, chart review, and updating the family. Case discussed with Dr. Hopkins Plan discussed with: Patient, Other (RN) My Orders My Orders Orders - DUARTE SPIVEY RESIDENT Procedure Category Date Status Time Pantoprazole Tablet PHA 05/23/25 In Process (Protonix Tablet) 06:00 * Mill Operator CONS 05/22/25 Transmitted Consult Dietary Evaluation Review Comments: 1. advance TF to Vital HP 55ml/hr providing 115g protwin, [id number] free water supporting pt's needs at 100% protein, 79% energy. 2. Reassess needs when Pt is off vent, and/or medically feasible for PO feedings. Expected Outcomes/Goals: maintain wt, avoid catablism Date of Service: May 22, 2025 Billing Provider: NOÉ HOPKINS MD Common Visit Codes: 49097-[id number] CARE 30-74 MIN DUARTE SPIVEY RESIDENT May 22, 2025 19:22 NOÉ HOPKINS MD May 23, 2025 11:34
[2025-05-22] MEDS: SACUBITRIL-VALSARTAN 24mg/26mg TAB PO SCH (21:31)
--- NOTE | 2025-05-22 22:49 | DVHPN2 ---
Progress Note - Dictate Date Seen: May 22, 2025 Has the PT tested + for MRSA If YES, has PT been informed?: No Medical Necessity Reason Pt with a Central, PICC or Fol: Yes The following are medically ne: PICC Line, Wong Catheter Reason for wong catheter: Strict I&O Subjective Mr. Mayberry is a 74 years old right-handed gentleman with a history of hypertension, diabetes, dyslipidemia, congestive heart failure on home oxygen, liver disease, he was brought to the [facility] on 05/13/2026 with a chief complaint of shortness of breath, in the hospital, the patient was found to have acute respiratory failure, combined metabolic respiratory acidosis, and was intubated in the emergency room. I have seen and examined the patient, I have talked to his nurse, he is oriented to person, place, he follow verbal commands, nurse reported confusion spells earlier today Urinalysis, 05/13/2025: WBC: 7, urine leukocyte esterase: Negative ABG, 05/14/2025: Hypoxia, metabolic acidosis, 05/15/2025: Metabolic acidosis WBC/HB/PLT/MCV, 05/14/2025: 3.4/11.1/107/69.6, 05/15/25: 15.4/13.9/171/66.3 PT/INR/ABG, 05/14/2025: 12.2/1.71/35.8 BUN/CR, 05/14/2025: 21/1.69 GFR, 05/14/2025: 42 Lactic acid, 05/13/2025: 6.6, 8.3, 9.8 Glucose, 05/14/2025: 44, 40, 136, 116, 106 TBI/AST/ALT/AP, 05/14/2025: 2.5/84/52/209, : 149/170/95/158 Ammonia, 05/14/2025: 54 Vitamin B12, 01/24/2025: 941, 05/14/25: 776 Folic acid, 01/25/2025: 8.94, 05/14/25:9.29 TSH, 01/24/2025: 2.6, 05/14/2025: 4.19 Chest x-ray, 05/14/2025: 1. Adequately positioned endotracheal and enteric tubes new from prior exam. 2. Similar diffuse right and mild left basilar airspace disease. CT head, 05/14/2025: 1. No acute intracranial abnormality. 2. Right ocular lens prosthesis. 3. Mild periventricular and subcortical white matter disease likely related to sequelae of chronic microvascular ischemic changes although other etiologies are not excluded vital signs Vital Sign Date Time Temp Pulse Resp B/P (MAP) Pulse Ox O2 Delivery O2 Flow Rate FiO2 05/22/25 22:00 69 05/22/25 22:00 18 98 Nasal Cannula* 2 28 05/22/25 21:32 157/78 05/22/25 20:00 97.8 97.8 Total Intake and Output 05/21/25 05/21/25 05/22/25 15:00 23:00 07:00 Intake Total 450.0 ml 50 ml 440 ml Output Total 1330 ml 1500 ml Balance 450.0 ml -1280 ml -1060 ml medications Current Medications Medications Dose Ordered Sig/Mikki Route Start Time Stop Time Status Last Admin Dose Admin Sodium Chloride 10 ml QSHIFT@10,22 IV 05/14/25 22:00 05/22/25 21:28 10 ML Thiamine HCl 100 mg DAILY IV 05/16/25 10:00 05/21/25 09:04 100 MG Dextrose 50 ml UD PRN IV 05/15/25 13:15 Cancel Dextrose 50 ml UD PRN IV 05/15/25 16:45 Enoxaparin Sodium 80 mg Q12HR SC 05/17/25 22:00 05/22/25 21:30 80 MG Hydralazine HCl 10 mg Q6HP PRN IV 05/19/25 12:00 05/22/25 18:03 10 MG Enteral Nutritional Formula 1,000 ml 55ML/HR GT 05/20/25 09:45 Diagnostic Test (Pha) 1 strip Q6HR 05/21/25 18:00 05/22/25 17:55 1 STRIP Insulin Human Regular Q6HR SC 05/21/25 18:00 05/21/25 19:37 2 UNITS Piperacillin Sod/ Tazobactam Sod 100 ml @ 25 mls/hr Q8HR IV 05/21/25 22:00 05/22/25 21:28 25 MLS/HR Pantoprazole Sodium 40 mg DAILY@0600 PO 05/23/25 06:00 Metoprolol Tartrate 25 mg BID PO 05/22/25 10:00 05/22/25 21:32 25 MG Amiodarone HCL/ Dextrose 200 ml @ 16.66 mls/ hr Q12H IV 05/22/25 16:30 05/22/25 16:18 16.66 MLS/HR Sacubitril/ Valsartan 1 tab BID PO 05/22/25 22:00 05/22/25 21:31 1 TAB Dextrose 1,000 ml @ 30 mls/hr Q24H IV 05/22/25 16:00 05/22/25 16:00 30 MLS/HR Spironolactone 25 mg DAILY PO 05/23/25 10:00 objective The patient is well-nourished and well-developed with no distress. MENTAL STATUS: Subjective CRANIAL NERVES: Pupils are round with the right pupil is bigger and nonreactive, left pupil is reactive. He has conjugated eye movement. No signs of facial weakness., sensorimotor examination is normal in bilateral trigeminal distribution SENSATION: Find pinprick and light touch MOTOR: Normal tone in the upper and lower extremity. Normal muscle bulk. No fasciculations. He moves the arms and legs REFLEXES: Deep tendon reflexes are symmetrical. CEREBELLAR/COORDINATION: No ataxia GAIT/STATION: deferred. laboratory and microbiology Laboratory Tests 05/22/25 05:36 Test 05/22/25 05:36 Range/Units Serum Glucose 149 #H 74-106 mg/dL Problem List Unequal pupil size, secondary to right prosthetic eye Coma resolved Hypoxic encephalopathy Metabolic encephalopathy Hepatic encephalopathy Respiratory acidosis, resolved Metabolic acidosis, resolved Respiratory failure, improving Cognitive dysfunction/mild cognitive impairment/mild dementia ? Alcohol related dementia/Korsakoff disease ? Alzheimer's dementia Liver failure ? Secondary to alcoholism ? Secondary to congestive heart failure Kidney failure Pneumonia Assessment/Plan Monitoring Supportive treatment JENNIFER care Stabilize vitals p.r.n. Respiratory support p.r.n. Oxygen IV antibiotics Thiamine supplementation Cardiology evaluation Pulmonology evaluation Address cognitive dysfunction when he is mentally better More recommendation per clinical course This medical document was created using an electronic medical record system with [employer] dictation system. Although this document has been carefully reviewed, there may still be some phonetic and typographical errors. These areas are purely typographical due to imperfections of the software programs, and do not reflect any compromise in the patient's medical care Prognosis poor Dietary Evaluation Review Comments: 1. advance TF to Vital HP 55ml/hr providing 115g protwin, [id number] free water supporting pt's needs at 100% protein, 79% energy. 2. Reassess needs when Pt is off vent, and/or medically feasible for PO feedings. Expected Outcomes/Goals: maintain wt, avoid catablism Plan discussed with: Other IZZY BOOKER MD May 22, 2025 22:49
[2025-05-23] VITALS (24 sets, daily range): BP systolic 118–163; BP diastolic 51–76; PULSE 56–81; RESP 9–20; TEMP 97.4–97.8; O2SAT 92–100
[2025-05-23] MEDS: PANTOPRAZOLE 40 MG TAB PO SCH (05:33)
[2025-05-23 06:47] LABS: Anion Gap 11 (5-15); BUN/Creatinine Ratio 26.9 (10.0-20.0); Magnesium 2.2 mg/dL (1.6-2.6); Total Protein 6.0 g/dL (5.7-8.2)
[2025-05-23 06:48] LABS: Alanine Aminotransferase 48 U/L (7-40); Albumin 2.7 g/dL (3.2-4.8); Alkaline Phosphatase 333 U/L (46-116); Blood Urea Nitrogen 25 mg/dL (9-23); Calcium 8.5 mg/dL (8.7-10.4); Carbon Dioxide 32 mmol/L (20-31); Chloride 112 mmol/L (98-107); Glucose 121 mg/dL (74-106); Sodium 155 mmol/L (136-145)
[2025-05-23 06:49] LABS: Bilirubin, Total 2.1 mg/dL (0.2-1.0)
[2025-05-23 06:50] LABS: Potassium 2.4 mmol/L (3.5-5.1)
[2025-05-23] MEDS: POTASSIUM CHL 20MEQ/100ML 100 ML IV SCH ×3 (07:06→20:05)
[2025-05-23] MEDS ORDERED: POTASSIUM CHL 20MEQ/100ML 100 ML IV ONE (09:00)
[2025-05-23] MEDS: SPIRONOLACTONE 25 MG TAB PO SCH (09:29)
[2025-05-23] MEDS: D5W 5% 1,000 ML IV SCH (09:42)
[2025-05-23] MEDS: AMIODARONE HCL 200 MG TAB PO SCH (10:00)
--- NOTE | 2025-05-23 10:24 | DVHPN2 ---
Progress Note Date Seen: May 23, 2025 Resident Creating Document: LING VALENZUELA RESIDENT Has the PT tested + for MRSA If YES, has PT been informed?: No Medical Necessity Reason Pt with a Central, PICC or Fol: Yes The following are medically ne: PICC Line, Wong Catheter Reason for wong catheter: Strict I&O Subjective Review of Systems pt seen and examined at bedside pt feels dryness in the mouth and wants to drink water on 2l NC Objective vital signs Vital Sign Date Time Temp Pulse Resp B/P (MAP) Pulse Ox O2 Delivery O2 Flow Rate FiO2 05/23/25 09:29 67 158/68 05/23/25 06:00 20 93 05/23/25 06:00 Nasal Cannula* 2 28 05/23/25 04:00 97.6 97.6 Total Intake and Output 05/22/25 05/22/25 05/23/25 15:00 23:00 07:00 Intake Total 766.65 ml 409.95 ml 526.62 ml Output Total 1600 ml 950 ml Balance 766.65 ml -1190.05 ml -423.38 ml medications Current Medications Medications Dose Ordered Sig/Mikki Route Start Time Stop Time Status Last Admin Dose Admin Sodium Chloride 10 ml QSHIFT@10,22 IV 05/14/25 22:00 05/23/25 09:30 10 ML Thiamine HCl 100 mg DAILY IV 05/16/25 10:00 05/23/25 09:28 100 MG Dextrose 50 ml UD PRN IV 05/15/25 13:15 Cancel Dextrose 50 ml UD PRN IV 05/15/25 16:45 Enoxaparin Sodium 80 mg Q12HR SC 05/17/25 22:00 05/23/25 09:28 80 MG Hydralazine HCl 10 mg Q6HP PRN IV 05/19/25 12:00 05/23/25 06:36 10 MG Enteral Nutritional Formula 1,000 ml 55ML/HR GT 05/20/25 09:45 Diagnostic Test (Pha) 1 strip Q6HR 05/21/25 18:00 05/23/25 05:33 1 STRIP Insulin Human Regular Q6HR SC 05/21/25 18:00 05/23/25 06:06 2 UNITS Piperacillin Sod/ Tazobactam Sod 100 ml @ 25 mls/hr Q8HR IV 05/21/25 22:00 05/23/25 05:34 25 MLS/HR Pantoprazole Sodium 40 mg DAILY@0600 PO 05/23/25 06:00 05/23/25 05:33 40 MG Metoprolol Tartrate 25 mg BID PO 05/22/25 10:00 05/23/25 09:29 25 MG Sacubitril/ Valsartan 1 tab BID PO 05/22/25 22:00 05/23/25 09:28 1 TAB Spironolactone 25 mg DAILY PO 05/23/25 10:00 05/23/25 09:29 25 MG Potassium Chloride 100 ml @ 50 mls/hr Q2H IV 05/23/25 07:00 05/23/25 12:59 05/23/25 09:25 50 MLS/HR Potassium Chloride 100 ml @ 50 mls/hr Q2H IV 05/23/25 07:45 05/23/25 11:44 Dextrose 1,000 ml @ 60 mls/hr [id number] IV 05/23/25 08:45 05/23/25 09:42 60 MLS/HR Amiodarone HCl 200 mg Q12HR PO 05/23/25 09:45 UNV Examination General Appearance: alert, oriented X3 HEENT: EOMI Respiratory: Clear to auscultation, Normal air movement Cardiovascular: Regular rate, Normal S1, Normal S2 Abdominal: Normal bowel sounds Extremities: No cyanosis, No edema, Normal pulses, No tenderness/swelling Skin: No rashes, No breakdown Neuro: normal speech and tone laboratory and microbiology Laboratory Tests 05/23/25 05:10 05/22/25 05:36 Test 05/23/25 05:10 Range/Units Serum Glucose 121 H 74-106 mg/dL Microbiology Date/Time Source Procedure Growth Status 05/18/25 10:35 Sputum Gram Stain - Final Complete 05/18/25 10:35 Respiratory Culture - Final Pseudomonas aeruginosa Complete 05/14/25 08:24 Voided Urine Urine Culture - Final Complete 05/14/25 02:46 Nose MRSA Screen - Final Complete 05/13/25 17:25 Blood Blood Culture - Final NO GROWTH AFTER 5 DAYS OF INCUBATION. Complete Labs and/or images reviewed: Labs reviewed by me, Image(s) reviewed by me Problem List/Assessment/Plan Problem List/Assessment/Plan Assessment/plan # Acute kidney injury likely in the setting of shock , related to acute tubular necrosis likely, improving Urine output 2.5 L in last 24 hours off dopamine drip kidney function improved # hypokalemia # hypernatremia # atrial fibrillation # hypocalcemia, asymptomatic # acute hypoxic respiratory failure, was on ventilator, extubated # shock, likely cardiogenic, possible septic shock component, resolved # acute HFrEF exacerbation # diabetes mellitus type 2 # history of liver disease # history of hypertension # hyperlipidemia Plan Strict input output Monitor kidney function and electrolytes Improvement in kidney function Discontinued Bumex, we will assess volume status tomorrow to resume low-dose Bumex continue spironolactone 25 mg daily Increased D50 to 60 cc/hour for hyponatremia as patient is NPO and pending swallow evaluation Avoid nephrotoxic drugs Hypokalemia corrected by primary team, monitor closely ordered swallow evaluation pt planned to have LHC on Tuesday Case discussion with Dr. Faust Plan discussed with: Patient, Other My Orders My Orders Orders - LING VALENZUELA RESIDENT Procedure Category Date Status Time Spironolactone PHA 05/23/25 In Process (Aldactone) 10:00 * Swallow Request ST 05/23/25 Transmitted 09:02 Dietary Evaluation Review Comments: 1. advance TF to Vital HP 55ml/hr providing 115g protwin, [id number] free water supporting pt's needs at 100% protein, 79% energy. 2. Reassess needs when Pt is off vent, and/or medically feasible for PO feedings. Expected Outcomes/Goals: maintain wt, avoid catablism LING VALENZUELA RESIDENT May 23, 2025 10:24
--- NOTE | 2025-05-23 10:38 | ECG ---
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
--- NOTE | 2025-05-23 10:38 | ECG ---
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
--- NOTE | 2025-05-23 13:07 | DVHPNRES ---
Progress Note Date Seen: May 23, 2025 Resident Creating Document: DUARTE SPIVEY RESIDENT Has the PT tested + for MRSA If YES, has PT been informed?: No Medical Necessity Reason Pt with a Central, PICC or Fol: Yes The following are medically ne: PICC Line, Wong Catheter Reason for wong catheter: Strict I&O Subjective Review of Systems This is a 74-year-old male with past medical history of CHF on home O2 2 to 3L, diabetes mellitus, liver disease, hypertension, and hyperlipidemia who presented to [facility] ED with complaint of shortness of breaths. Patient reports that he has been experiencing worsening shortness of breaths with associated leg swelling and chest pressure since this morning. Patient was on 87% on 2L despite giving 2 DuoNeb treatments en route, placing him on a non- rebreather mask upon arrival. in the ED patient was hypoxic, increased work of breathing, desaturating on BiPAP and subsequently intubated. Patient was seen and examined in the ICU. status post extubation on 2 L oxygen through nasal cannula. alert oriented x1. Pending swallow evaluation, sodium is elevated at 155. NG was placed to continue feeding and to giving free water to decrease the sodium level but patient removed the NG tube and also family does not wants the patient to be on NG tube feeding. scheduled for left heart catheterization tomorrow. Objective vital signs Vital Sign Date Time Temp Pulse Resp B/P (MAP) Pulse Ox O2 Delivery O2 Flow Rate FiO2 05/23/25 11:00 59 141/63 05/23/25 06:00 20 93 05/23/25 06:00 Nasal Cannula* 2 28 05/23/25 04:00 97.6 97.6 Total Intake and Output 05/22/25 05/22/25 05/23/25 15:00 23:00 07:00 Intake Total 766.65 ml 409.95 ml 526.62 ml Output Total 1600 ml 950 ml Balance 766.65 ml -1190.05 ml -423.38 ml medications Current Medications Medications Dose Ordered Sig/Mikki Route Start Time Stop Time Status Last Admin Dose Admin Sodium Chloride 10 ml QSHIFT@10,22 IV 05/14/25 22:00 05/23/25 09:30 10 ML Thiamine HCl 100 mg DAILY IV 05/16/25 10:00 05/23/25 09:28 100 MG Dextrose 50 ml UD PRN IV 05/15/25 13:15 Cancel Dextrose 50 ml UD PRN IV 05/15/25 16:45 Enoxaparin Sodium 80 mg Q12HR SC 05/17/25 22:00 05/23/25 09:28 80 MG Hydralazine HCl 10 mg Q6HP PRN IV 05/19/25 12:00 05/23/25 06:36 10 MG Enteral Nutritional Formula 1,000 ml 55ML/HR GT 05/20/25 09:45 Diagnostic Test (Pha) 1 strip Q6HR 05/21/25 18:00 05/23/25 11:34 1 STRIP Insulin Human Regular Q6HR SC 05/21/25 18:00 05/23/25 06:06 2 UNITS Piperacillin Sod/ Tazobactam Sod 100 ml @ 25 mls/hr Q8HR IV 05/21/25 22:00 05/23/25 05:34 25 MLS/HR Pantoprazole Sodium 40 mg DAILY@0600 PO 05/23/25 06:00 05/23/25 05:33 40 MG Metoprolol Tartrate 25 mg BID PO 05/22/25 10:00 05/23/25 09:29 25 MG Sacubitril/ Valsartan 1 tab BID PO 05/22/25 22:00 05/23/25 09:28 1 TAB Spironolactone 25 mg DAILY PO 05/23/25 10:00 05/23/25 09:29 25 MG Dextrose 1,000 ml @ 60 mls/hr [id number] IV 05/23/25 08:45 05/23/25 09:42 60 MLS/HR Amiodarone HCl 200 mg Q12HR PO 05/23/25 09:45 Purified Water 200 ml Q6HR GT 05/23/25 18:00 Examination Physical examination: General Appearance: Alert, Oriented X3, Cooperative, on nasal canula 2L HEENT: Atraumatic, PERRLA, EOMI, Mucous membrane moist/pink Respiratory: Bilateral vesicular breath sound with rales on right lower lobe Cardiovascular: Regular rate, Normal S1, Normal S2, No murmurs, no chest wall tenderness Abdominal: Normal bowel sounds, Soft, No tenderness, No hepatospenomegaly, No masses Extremities: No clubbing, No cyanosis, No edema, Normal pulses, No tenderness/swelling Skin: No rashes, No breakdown, No significant lesion Neuro: Grossly intact cranial nerves Cranial nerves 3-12 NL, Reflexes 2+ Psych/Mental Status: Could not be assessed. laboratory and microbiology Laboratory Tests 05/23/25 05:10 05/22/25 05:36 Test 05/23/25 05:10 Range/Units Serum Glucose 121 H 74-106 mg/dL Microbiology Date/Time Source Procedure Growth Status 05/18/25 10:35 Sputum Gram Stain - Final Complete 05/18/25 10:35 Respiratory Culture - Final Pseudomonas aeruginosa Complete 05/14/25 08:24 Voided Urine Urine Culture - Final Complete 05/14/25 02:46 Nose MRSA Screen - Final Complete 05/13/25 17:25 Blood Blood Culture - Final NO GROWTH AFTER 5 DAYS OF INCUBATION. 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 CARDIOVASCULAR: Acute on chronic decompensated systolic heart failure cardiogenic shock/ septic shock secondary to above NSTEMI type 2 likely secondary to above Paroxysmal atrial fibrillation with RVR and secondary hypercoagulable state -chest x-ray demonstrated right-sided pneumonia with pulmonary vascular congestion -BNP> 5000 and trops were mildly elevated and flat - Echo on 02/10 demonstrated EF 10% with end-stage dilated heart failure, RVSP 38 mm Hg - status post extubation, off sedation and pressors - Waiting for swallow evaluation - IV amiodarone as per protocol - continue GDM T with metoprolol, Entresto and spironolactone - scheduled for left heart catheterization tomorrow on 05/24/2025 - Hold evening dose of enoxaparin PULMONARY: Acute hypoxic respiratory failure secondary to exacerbation of CHF/ pneumonia right-sided Gram-positive versus Gram-negative community acquired pneumonia possible aspiration pneumonia Rule out lung malignancy - Right lower lobe atelectasis due to mucous plugging Mucous plugging from L6-L10 and R1-R10 RML BAL performed . 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 - Lactulose 30 mL b.i.d. GENITOURINARY: Acute kidney injury likely secondary to shock / VMN improved - strict I&O - monitor BMP ENDOCRINE: Hypoglycemia resolved - monitor blood sugar closely METABOLIC: Moderate protein calorie malnutrition Hypernatremia - IV 5% DA at 60 mL/hours - 200 mL q.6 hours through GT tube. HEME: Acute DVT of right upper arm Chronic microcytic hypochromic anemia likely due to anemia of chronic disease Thrombocytopenia likely due to cirrhosis - Doppler venous scan of the upper extremity showed deep vein thrombosis of right axillary and subclavian vein and thrombosis of left basilic vein - Therapeutic Lovenox 1 milligram/kg body weight b.i.d. INFECTIOUS DISEASE: Right-sided Gram-positive/ Gram-negative community acquired pneumonia Possible aspiration pneumonia - chest x-ray demonstrated right-sided pneumonia with pulmonary vascular congestion - Preliminary blood cultures were unremarkable and MRSA negative - sputum culture on 05/18 showed Pseudomonas - IV Zosyn 3.375 g Q 8 hours and discontinued vancomycin and cefepime DIET: NPO DVT prophylax:Lovenox GI prophylaxis:Protonix Bowel regimen:Lactulose Code status: modified DNR, no chest compression LINES/DRAINS/ACCESS: Rt upper arm PICC line on 05/14 ETT: Intubated on 05/13/25 IV access: Rt upper arm PICC line on 05/14, rt femoral arterial line 05/15 Wong catheter: placed on 05/13/2025 DISPOSITION: JENNIFER Patient's status discussed with son and [id number] Critical care time spent more than 43 minutes, including patient care, chart review, and updating the family. Case discussed with Dr. Hopkins Plan discussed with: Son, Other (RN) My Orders My Orders Orders - DUARTE SPIVEY RESIDENT Procedure Category Date Status Time * Plane Captain CONS 05/22/25 Transmitted Consult Amiodarone Tablet PHA 05/23/25 In Process (Cordarone Tablet) 09:45 Place Ng ORDERS 05/23/25 Transmitted 12:31 Free Water PHA 05/23/25 In Process 18:00 Dietary Evaluation Review Comments: 1. advance TF to Vital HP 55ml/hr providing 115g protwin, [id number] free water supporting pt's needs at 100% protein, 79% energy. 2. Reassess needs when Pt is off vent, and/or medically feasible for PO feedings. Expected Outcomes/Goals: maintain wt, avoid catablism Date of Service: May 23, 2025 Billing Provider: NOÉ HOPKINS MD Common Visit Codes: 87733-[id number] CARE 30-74 MIN DUARTE SPIVEY RESIDENT May 23, 2025 13:07 NOÉ HOPKINS MD May 25, 2025 15:33
--- NOTE | 2025-05-23 13:22 | DVHPNRES ---
Progress Note Date Seen: May 23, 2025 Resident Creating Document: AGNIESZKA CHENG RESIDENT Has the PT tested + for MRSA If YES, has PT been informed?: No Medical Necessity Reason Pt with a Central, PICC or Fol: Yes The following are medically ne: PICC Line, Wong Catheter Reason for wong catheter: Strict I&O Subjective Review of Systems Overnight-patient remained in stable sinus rhythm on telemetry, HR fluctuating between 60-70 beats per minute. BP-fluctuating between 150-172 systolic mmHg. Respiratory-stable on 2 L NC with SpO2 93-95%. Able to lie flat. Rhythm successfully transitioned from IV amiodarone drip to p.o. amiodarone 200 mg b.i.d.. GED empty- Entresto full dose. Metoprolol tartrate converted to metoprolol succinate 50 mg p.o. daily. Spironolactone 25 mg p.o. daily newly started. Hydralazine 10 mg p.o. Q 6 H p.r.n. continued. No chest pain, no new dyspnea, no syncope. Scheduled for left heart catheterization tomorrow with Dr. Suárez to evaluate for ischemic contribution to severe cardiomyopathy, per ACC/aha guidelines Objective vital signs Vital Sign Date Time Temp Pulse Resp B/P (MAP) Pulse Ox O2 Delivery O2 Flow Rate FiO2 05/23/25 11:00 59 141/63 05/23/25 06:00 20 93 05/23/25 06:00 Nasal Cannula* 2 28 05/23/25 04:00 97.6 97.6 Total Intake and Output 05/22/25 05/22/25 05/23/25 15:00 23:00 07:00 Intake Total 766.65 ml 409.95 ml 526.62 ml Output Total 1600 ml 950 ml Balance 766.65 ml -1190.05 ml -423.38 ml medications Current Medications Medications Dose Ordered Sig/Mikki Route Start Time Stop Time Status Last Admin Dose Admin Sodium Chloride 10 ml QSHIFT@10,22 IV 05/14/25 22:00 05/23/25 09:30 10 ML Thiamine HCl 100 mg DAILY IV 05/16/25 10:00 05/23/25 09:28 100 MG Dextrose 50 ml UD PRN IV 05/15/25 13:15 Cancel Dextrose 50 ml UD PRN IV 05/15/25 16:45 Enoxaparin Sodium 80 mg Q12HR SC 05/17/25 22:00 05/23/25 09:28 80 MG Hydralazine HCl 10 mg Q6HP PRN IV 05/19/25 12:00 05/23/25 06:36 10 MG Enteral Nutritional Formula 1,000 ml 55ML/HR GT 05/20/25 09:45 Diagnostic Test (Pha) 1 strip Q6HR 05/21/25 18:00 05/23/25 11:34 1 STRIP Insulin Human Regular Q6HR SC 05/21/25 18:00 05/23/25 06:06 2 UNITS Piperacillin Sod/ Tazobactam Sod 100 ml @ 25 mls/hr Q8HR IV 05/21/25 22:00 05/23/25 05:34 25 MLS/HR Pantoprazole Sodium 40 mg DAILY@0600 PO 05/23/25 06:00 05/23/25 05:33 40 MG Metoprolol Tartrate 25 mg BID PO 05/22/25 10:00 05/23/25 09:29 25 MG Sacubitril/ Valsartan 1 tab BID PO 05/22/25 22:00 05/23/25 09:28 1 TAB Spironolactone 25 mg DAILY PO 05/23/25 10:00 05/23/25 09:29 25 MG Dextrose 1,000 ml @ 60 mls/hr [id number] IV 05/23/25 08:45 05/23/25 09:42 60 MLS/HR Amiodarone HCl 200 mg Q12HR PO 05/23/25 09:45 05/23/25 13:10 200 MG Purified Water 200 ml Q6HR GT 05/23/25 18:00 Examination General-extubated, breathing comfortably on NC. CV-heart rate 71, paroxysmal AFib, JVD elevated, S3 gallop, Respiratory-good air movement, no wheezing or crackles. Extremities-trace pulmonary edema. Neuro-awake, conversant. laboratory and microbiology Laboratory Tests 05/23/25 05:10 05/22/25 05:36 Test 05/23/25 05:10 Range/Units Serum Glucose 121 H 74-106 mg/dL Microbiology Date/Time Source Procedure Growth Status 05/18/25 10:35 Sputum Gram Stain - Final Complete 05/18/25 10:35 Respiratory Culture - Final Pseudomonas aeruginosa Complete 05/14/25 08:24 Voided Urine Urine Culture - Final Complete 05/14/25 02:46 Nose MRSA Screen - Final Complete 05/13/25 17:25 Blood Blood Culture - Final NO GROWTH AFTER 5 DAYS OF INCUBATION. Complete Problem List/Assessment/Plan Problem List/Assessment/Plan Assessment 1. 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 * SCAI Shock Stage CD (classic/deteriorating cardiogenic shock). * Killip IV (cardiogenic shock). * Acute ischemic vs progressive dilated cardiomyopathy. Paroxysmal AFib with RVR/frequent PVCs 2. Cardiogenic shock requiring pressors (dopamine + norepinephrine). 3. Acute hypoxemic respiratory failure (intubated, FiO2 80%, PEEP 7) due to pneumonia + CHF. 4. Right-sided pneumonia , sepsis physiology with lactic acidosis. 5. SAPNA (KDIGO stage 12) from hypoperfusion, sepsis, diuresis. 6. 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 Plan/Recommendation Plan Cardiovascular: Continue amiodarone 200 mg p.o. b.i.d. for AFib suppression, monitor QTC. * Judicious introduction of GDMT for HFrEF. Continue metoprolol succinate 50 mg daily for rate control, maintain Entresto full dose. Plan for [facility] tomorrow with Dr. Moreira to evaluate ischemic contribution to cardiomyopathy. This is indicated for advanced HFrEF with unclear ischemic contribution, per ACC/aha class 1 recommendation for evaluation of CAD new or worsening HFrEF. *Strict I/O, daily weights, fluid restriction <1.5 L/day. Trend BNP *Monitor for arrhythmias, replenished K more than 4.0, mg > 2 * Evaluate candidacy for MCS (IABP/Impella/LVAD) due to underlying cirrhosis Nephrology follow-up appreciated. Hepatic: * Continue lactulose BID, monitor ammonia. * Trend LFTs, coags. Prophylaxis: * DVT: Enoxaparin. * GI: IV PPI daily. * ICU bundle: head elevation, turning protocol, pressure sore prevention. Case discussed with Dr. Art. Case discussed in detail with the patient and his son and both agreed upon with the discussed plan. Plan discussed with: Patient, Son My Orders My Orders Orders - AGNIESZKA CHENG Procedure Category Date Status Time Sacubitril-Valsartan PHA 05/22/25 In Process (Entresto 24-26 Mg 22:00 Dietary Evaluation Review Comments: 1. advance TF to Vital HP 55ml/hr providing 115g protwin, [id number] free water supporting pt's needs at 100% protein, 79% energy. 2. Reassess needs when Pt is off vent, and/or medically feasible for PO feedings. Expected Outcomes/Goals: maintain wt, avoid catablism Visit Coding Cardiology RES Date of Service: May 23, 2025 Billing Provider: GABY ART Sr., MD Cardiology Common Codes: [id number] [facility]OSP CARE(High AGNIESZKA CHENG RESIDENT May 23, 2025 13:22
[2025-05-23] MEDS: FREE WATER GT SCH (17:10)
[2025-05-23] MEDS ORDERED: POTASSIUM CHL 20MEQ/100ML 100 ML IV SCH (19:15)
[2025-05-24] VITALS (24 sets, daily range): BP systolic 119–179; BP diastolic 53–107; PULSE 56–88; RESP 10–27; TEMP 97.3–97.8; O2SAT 96–99
[2025-05-24 06:40] LABS: Hemoglobin 11.5 g/dL (13.5-17.5); Mean Corpuscular Hemoglobin 21.5 pg (28.0-32.0); Mean Corpuscular Volume 66.6 fL (80.0-100.0); Nucleated Red Blood Cells % 0.1 %
[2025-05-24 06:42] LABS: Hematocrit 35.5 % (41.0-53.0)
[2025-05-24 06:53] LABS: Anion Gap 8 (5-15)
[2025-05-24 06:59] LABS: BUN/Creatinine Ratio 23.5 (10.0-20.0); Blood Urea Nitrogen 19 mg/dL (9-23)
[2025-05-24 07:00] LABS: Calcium 8.2 mg/dL (8.7-10.4); Carbon Dioxide 32 mmol/L (20-31); Chloride 110 mmol/L (98-107); Glucose 132 mg/dL (74-106); Potassium 2.9 mmol/L (3.5-5.1); Sodium 150 mmol/L (136-145)
[2025-05-24 07:03] LABS: INR 1.12 (0.9-1.15); Partial Thromboplastin Time 45.6 SEC (24.5-34.5); Prothrombin Time 11.7 sec (9.3-11.8)
[2025-05-24] MEDS: IODIXANOL 320MG/ML 100ML BTL IV ONE (09:54)
[2025-05-24] MEDS: VERAPAMIL 2.5MG/ML INJ 2ML VIAL IV ONE (11:42)
[2025-05-24] MEDS: ANGIOMAX 250 MG VIAL IV ONE (11:42)
[2025-05-24] MEDS: SODIUM CHL 0.9% 50 ML ONE (11:43)
[2025-05-24] MEDS: MIDAZOLAM HCL 2MG/2ML 2ml VIAL (1mg/ml) ONE (11:43)
[2025-05-24] MEDS: LIDOCAINE 2%HCL (LOCAL ANESTH.) INJ 20ML MDV ONE (11:43)
[2025-05-24] MEDS: HEPARIN SODIUM (PORCINE) 5000 UNITS/ML 1ML VIAL ONE (11:43)
[2025-05-24] MEDS: fentaNYL CITRATE 100 MCG/2 ML VL ONE (11:43)
--- NOTE | 2025-05-24 12:15 | DVHPN2 ---
Progress Note Date Seen: May 24, 2025 Resident Creating Document: LING VALENZUELA RESIDENT Has the PT tested + for MRSA If YES, has PT been informed?: No Medical Necessity Reason Pt with a Central, PICC or Fol: Yes The following are medically ne: PICC Line, Wong Catheter Reason for wong catheter: Strict I&O Subjective Review of Systems pt seen and examined at bedside pt feels dryness in the mouth and wants to drink water on 2l NC Scheduled for C today Objective vital signs Vital Sign Date Time Temp Pulse Resp B/P (MAP) Pulse Ox O2 Delivery O2 Flow Rate FiO2 05/24/25 09:37 14 98 Nasal Cannula* 2 28 05/24/25 09:37 71 05/24/25 09:00 150/62 (91) 05/24/25 08:00 97.4 97.4 Total Intake and Output 05/23/25 05/23/25 05/24/25 15:00 23:00 07:00 Intake Total 753.32 ml 520 ml 905 ml Output Total 700 ml 550 ml Balance 753.32 ml -180 ml 355 ml medications Current Medications Medications Dose Ordered Sig/Mikki Route Start Time Stop Time Status Last Admin Dose Admin Sodium Chloride 10 ml QSHIFT@10,22 IV 05/14/25 22:00 05/23/25 22:24 10 ML Thiamine HCl 100 mg DAILY IV 05/16/25 10:00 05/23/25 09:28 100 MG Dextrose 50 ml UD PRN IV 05/15/25 13:15 Cancel Dextrose 50 ml UD PRN IV 05/15/25 16:45 Enoxaparin Sodium 80 mg Q12HR SC 05/17/25 22:00 05/23/25 22:23 80 MG Hydralazine HCl 10 mg Q6HP PRN IV 05/19/25 12:00 05/23/25 06:36 10 MG Enteral Nutritional Formula 1,000 ml 55ML/HR GT 05/20/25 09:45 Diagnostic Test (Pha) 1 strip Q6HR 05/21/25 18:00 05/24/25 06:00 1 STRIP Insulin Human Regular Q6HR SC 05/21/25 18:00 05/23/25 06:06 2 UNITS Piperacillin Sod/ Tazobactam Sod 100 ml @ 25 mls/hr Q8HR IV 05/21/25 22:00 05/24/25 05:59 25 MLS/HR Pantoprazole Sodium 40 mg DAILY@0600 PO 05/23/25 06:00 05/23/25 05:33 40 MG Metoprolol Tartrate 25 mg BID PO 05/22/25 10:00 05/23/25 23:19 25 MG Sacubitril/ Valsartan 1 tab BID PO 05/22/25 22:00 05/23/25 22:23 1 TAB Dextrose 1,000 ml @ 60 mls/hr [id number] IV 05/23/25 08:45 05/23/25 18:18 60 MLS/HR Amiodarone HCl 200 mg Q12HR PO 05/23/25 09:45 05/23/25 22:23 200 MG Purified Water 200 ml Q6HR GT 05/23/25 18:00 05/23/25 18:18 200 ML Potassium Chloride 100 ml @ 50 mls/hr Q2H IV 05/23/25 19:15 05/24/25 03:14 UNV Spironolactone 25 mg BID PO 05/24/25 10:00 Examination General Appearance: alert, oriented X3 HEENT: EOMI Respiratory: Clear to auscultation, Normal air movement Cardiovascular: Regular rate, Normal S1, Normal S2 Abdominal: Normal bowel sounds Extremities: No cyanosis, No edema, Normal pulses, No tenderness/swelling Skin: No rashes, No breakdown Neuro: normal speech and tone laboratory and microbiology Laboratory Tests 05/24/25 05:34 Test 05/24/25 05:34 Range/Units Serum Glucose 132 H 74-106 mg/dL Microbiology Date/Time Source Procedure Growth Status 05/18/25 10:35 Sputum Gram Stain - Final Complete 05/18/25 10:35 Respiratory Culture - Final Pseudomonas aeruginosa Complete 05/14/25 08:24 Voided Urine Urine Culture - Final Complete 05/14/25 02:46 Nose MRSA Screen - Final Complete 05/13/25 17:25 Blood Blood Culture - Final NO GROWTH AFTER 5 DAYS OF INCUBATION. Complete Labs and/or images reviewed: Labs reviewed by me, Image(s) reviewed by me Problem List/Assessment/Plan Problem List/Assessment/Plan Assessment/plan # Acute kidney injury likely in the setting of shock , related to acute tubular necrosis likely, improving Urine output 1.2 L in last 24 hours off dopamine drip kidney function improved # hypokalemia # hypernatremia # atrial fibrillation # hypocalcemia, asymptomatic # acute hypoxic respiratory failure, was on ventilator, extubated # shock, likely cardiogenic, possible septic shock component, resolved # acute HFrEF exacerbation # diabetes mellitus type 2 # history of liver disease # history of hypertension # hyperlipidemia Plan Strict input output Monitor kidney function and electrolytes Improvement in kidney function Discontinued Bumex, we will assess volume status tomorrow to resume low-dose Bumex Increased to spironolactone 25 mg BID Increased D50 to 60 cc/hour for hyponatremia as patient is NPO and pending swallow evaluation Avoid nephrotoxic drugs Hypokalemia corrected by IV potassium ordered swallow evaluation pt planned to have LHC today Case discussion with Dr. Faust Plan discussed with: Patient, Other Dietary Evaluation Review Comments: 1. advance TF to Vital HP 55ml/hr providing 115g protwin, [id number] free water supporting pt's needs at 100% protein, 79% energy. 2. Reassess needs when Pt is off vent, and/or medically feasible for PO feedings. Expected Outcomes/Goals: maintain wt, avoid catablism LING VALENZUELA RESIDENT May 24, 2025 12:15
--- NOTE | 2025-05-24 12:16 | DVHPN2 ---
Progress Note Date Seen: May 24, 2025 Has the PT tested + for MRSA If YES, has PT been informed?: No Medical Necessity Reason Pt with a Central, PICC or Fol: Yes The following are medically ne: PICC Line, Wong Catheter Reason for wong catheter: Strict I&O Subjective Other Systems: sp cath Objective vital signs Vital Sign Date Time Temp Pulse Resp B/P (MAP) Pulse Ox O2 Delivery O2 Flow Rate FiO2 05/24/25 09:37 14 98 Nasal Cannula* 2 28 05/24/25 09:37 71 05/24/25 09:00 150/62 (91) 05/24/25 08:00 97.4 97.4 Total Intake and Output 05/23/25 05/23/25 05/24/25 15:00 23:00 07:00 Intake Total 753.32 ml 520 ml 905 ml Output Total 700 ml 550 ml Balance 753.32 ml -180 ml 355 ml medications Current Medications Medications Dose Ordered Sig/Mikki Route Start Time Stop Time Status Last Admin Dose Admin Sodium Chloride 10 ml QSHIFT@10,22 IV 05/14/25 22:00 05/23/25 22:24 10 ML Thiamine HCl 100 mg DAILY IV 05/16/25 10:00 05/23/25 09:28 100 MG Dextrose 50 ml UD PRN IV 05/15/25 13:15 Cancel Dextrose 50 ml UD PRN IV 05/15/25 16:45 Enoxaparin Sodium 80 mg Q12HR SC 05/17/25 22:00 05/23/25 22:23 80 MG Hydralazine HCl 10 mg Q6HP PRN IV 05/19/25 12:00 05/23/25 06:36 10 MG Enteral Nutritional Formula 1,000 ml 55ML/HR GT 05/20/25 09:45 Diagnostic Test (Pha) 1 strip Q6HR 05/21/25 18:00 05/24/25 06:00 1 STRIP Insulin Human Regular Q6HR SC 05/21/25 18:00 05/23/25 06:06 2 UNITS Piperacillin Sod/ Tazobactam Sod 100 ml @ 25 mls/hr Q8HR IV 05/21/25 22:00 05/24/25 05:59 25 MLS/HR Pantoprazole Sodium 40 mg DAILY@0600 PO 05/23/25 06:00 05/23/25 05:33 40 MG Metoprolol Tartrate 25 mg BID PO 05/22/25 10:00 05/23/25 23:19 25 MG Sacubitril/ Valsartan 1 tab BID PO 05/22/25 22:00 05/23/25 22:23 1 TAB Dextrose 1,000 ml @ 60 mls/hr [id number] IV 05/23/25 08:45 05/23/25 18:18 60 MLS/HR Amiodarone HCl 200 mg Q12HR PO 05/23/25 09:45 05/23/25 22:23 200 MG Purified Water 200 ml Q6HR GT 05/23/25 18:00 05/23/25 18:18 200 ML Potassium Chloride 100 ml @ 50 mls/hr Q2H IV 05/23/25 19:15 05/24/25 03:14 UNV Spironolactone 25 mg BID PO 05/24/25 10:00 Potassium Chloride 100 ml @ 50 mls/hr Q2H IV 05/24/25 12:15 05/24/25 18:14 UNV Examination: GENERAL:Abnormal, HEENT:Abnormal, LUNGS:Abnormal, CVS:Abnormal, ABDOMEN:Abnormal laboratory and microbiology Laboratory Tests 05/24/25 05:34 Test 05/24/25 05:34 Range/Units Serum Glucose 132 H 74-106 mg/dL Microbiology Date/Time Source Procedure Growth Status 05/18/25 10:35 Sputum Gram Stain - Final Complete 05/18/25 10:35 Respiratory Culture - Final Pseudomonas aeruginosa Complete 05/14/25 08:24 Voided Urine Urine Culture - Final Complete 05/14/25 02:46 Nose MRSA Screen - Final Complete 05/13/25 17:25 Blood Blood Culture - Final NO GROWTH AFTER 5 DAYS OF INCUBATION. Complete Problem List/Assessment/Plan Problem List/Assessment/Plan # hypokalemia # hypernatremia # atrial fibrillation # hypocalcemia, asymptomatic # acute hypoxic respiratory failure, was on ventilator, extubated # shock, likely cardiogenic, possible septic shock component, resolved # acute HFrEF exacerbation # diabetes mellitus type 2 # history of liver disease # history of hypertension # hyperlipidemia pt Na is very high, K was low s/p cath pt is agitated mildy combative cath shows 90% mid RCA lesion not amenable to pci given his poor clinical status and hes not compliant during any procedure with low ef given his multiple health issues, recomend plavix or asa with his doac, and aggressive medical management pt should likely conisder hospice in future Plan discussed with: Patient My Orders My Orders Orders - TERRELL MCINTOSH MD Procedure Category Date Status Time Cl Left Heart Cath CL 05/24/25 Taken 07:24 Dietary Evaluation Review Comments: 1. advance TF to Vital HP 55ml/hr providing 115g protwin, [id number] free water supporting pt's needs at 100% protein, 79% energy. 2. Reassess needs when Pt is off vent, and/or medically feasible for PO feedings. Expected Outcomes/Goals: maintain wt, avoid catablism Date of Service: May 24, 2025 Billing Provider: TERRELL MCINTOSH MD Common Visit Codes: NOT BILLABLE TERRELL MCINTOSH MD May 24, 2025 12:16
--- NOTE | 2025-05-24 12:25 | DVHOP2 ---
Operative Report Operative Report [facility] PRINCIPAL PROCEDURE REPORT [place], [place] Date of Service: 05/24/25 Glass Loading Equipment Tender: Terrell Mcintosh MD PROCEDURES PERFORMED: Coronary angiogram, left heart catheterization, conscious sedation administration and supervision, less than 15 minutes; fluoroscopy use and interpretation. PREOPERATIVE DIAGNOSES: severe chf with ef 10% POSTOP DIAGNOSIS: 1v cad DESCRIPTION OF PROCEDURE: The patient or appropriate family signed informed consent understanding the risks, benefits and alternatives of the procedure, they wished to proceed. The patient was brought to the cardiac yard labor supervisor in n.p.o. state. The patient was prepped in a sterile fashion. Sedation was used per cardiac cath protocol. I administered 2 mL of 2% lidocaine to the right wrist. With an antegrade front wall puncture. I cannulated the right radial artery and placed a 6-[place] Glidesheath slender. Next, an intra-arterial spasmolytic was administered. Next, a - 5 [place] catheter an and were used for coronary angiogram and LVEDP measurement and pressure pullback. At the completion of procedure, all guides and wires were removed, and there were no immediate complications. FINDINGS: RCA: Moderate vessel off the right sinus of Valsalva, there is a long 50% prox lesin, mid RCA has a focal heavily calcified 90% stenosis. distal rca gives off pda with mild diffuse plaque. LEFT MAIN: Moderate size left main, it bifurcates into LAD and circumflex. mild plaque CIRCUMFLEX: Moderate caliber vessel coming off the left main with no flow limiting stenosis. 50% prox stenosis , with several OM branches with moderate disease LAD: LAD is a moderate caliber vessel coming of the left main. mild diffuse p laque LVEDP of 2 mmhg CONCLUSIONS: 1. severe 1 v cad PLAN: Aggressive risk factor modification and medical management for the patient. anti platelet pt is moving around during procedure, given his multiplle comorbidities recommend medical therapy for now TERRELL MCINTOSH MD May 24, 2025 12:25
[2025-05-24] MEDS: SPIRONOLACTONE 25 MG TAB PO SCH (14:40)
[2025-05-24] MEDS: POTASSIUM CHL 20MEQ/100ML 100 ML IV SCH (14:45)
--- NOTE | 2025-05-24 17:39 | DVHPNRES ---
Progress Note Date Seen: May 24, 2025 Resident Creating Document: DUARTE SPIVEY RESIDENT Has the PT tested + for MRSA If YES, has PT been informed?: No Medical Necessity Reason Pt with a Central, PICC or Fol: Yes The following are medically ne: PICC Line, Wong Catheter Reason for wong catheter: Strict I&O Subjective Review of Systems This is a 74-year-old male with past medical history of CHF on home O2 2 to 3L, diabetes mellitus, liver disease, hypertension, and hyperlipidemia who presented to [facility] ED with complaint of shortness of breaths. Patient reports that he has been experiencing worsening shortness of breaths with associated leg swelling and chest pressure since this morning. Patient was on 87% on 2L despite giving 2 DuoNeb treatments en route, placing him on a non- rebreather mask upon arrival. in the ED patient was hypoxic, increased work of breathing, desaturating on BiPAP and subsequently intubated. Patient was seen and examined in the ICU. status post extubation on 2 L oxygen through nasal cannula. alert oriented x3. Patient underwent left heart catheterization today and started pureed diet today. Objective vital signs Vital Sign Date Time Temp Pulse Resp B/P (MAP) Pulse Ox O2 Delivery O2 Flow Rate FiO2 05/24/25 17:00 97.8 82 16 119/63 (81) 97.8 05/24/25 16:00 97 Nasal Cannula* 2 28 Total Intake and Output 05/23/25 05/23/25 05/24/25 15:00 23:00 07:00 Intake Total 753.32 ml 520 ml 905 ml Output Total 700 ml 550 ml Balance 753.32 ml -180 ml 355 ml medications Current Medications Medications Dose Ordered Sig/Mikki Route Start Time Stop Time Status Last Admin Dose Admin Sodium Chloride 10 ml QSHIFT@10,22 IV 05/14/25 22:00 05/23/25 22:24 10 ML Thiamine HCl 100 mg DAILY IV 05/16/25 10:00 05/23/25 09:28 100 MG Dextrose 50 ml UD PRN IV 05/15/25 13:15 Cancel Dextrose 50 ml UD PRN IV 05/15/25 16:45 Hydralazine HCl 10 mg Q6HP PRN IV 05/19/25 12:00 05/24/25 16:12 10 MG Enteral Nutritional Formula 1,000 ml 55ML/HR GT 05/20/25 09:45 Diagnostic Test (Pha) 1 strip Q6HR 05/21/25 18:00 05/24/25 12:00 1 STRIP Insulin Human Regular Q6HR SC 05/21/25 18:00 05/23/25 06:06 2 UNITS Piperacillin Sod/ Tazobactam Sod 100 ml @ 25 mls/hr Q8HR IV 05/21/25 22:00 05/24/25 14:41 25 MLS/HR Pantoprazole Sodium 40 mg DAILY@0600 PO 05/23/25 06:00 05/23/25 05:33 40 MG Sacubitril/ Valsartan 1 tab BID PO 05/22/25 22:00 05/24/25 14:40 1 TAB Dextrose 1,000 ml @ 60 mls/hr [id number] IV 05/23/25 08:45 05/24/25 14:46 60 MLS/HR Amiodarone HCl 200 mg Q12HR PO 05/23/25 09:45 05/24/25 14:40 200 MG Purified Water 200 ml Q6HR GT 05/23/25 18:00 05/24/25 17:32 200 ML Potassium Chloride 100 ml @ 50 mls/hr Q2H IV 05/23/25 19:15 05/24/25 03:14 UNV Spironolactone 25 mg BID PO 05/24/25 10:00 05/24/25 14:40 25 MG Potassium Chloride 100 ml @ 50 mls/hr Q2H IV 05/24/25 12:15 05/24/25 18:14 05/24/25 16:44 50 MLS/HR Clopidogrel Bisulfate 75 mg DAILY PO 05/25/25 10:00 Apixaban 5 mg BID PO 05/24/25 22:00 Metoprolol Succinate 25 mg DAILY PO 05/25/25 10:00 Examination Physical examination: General Appearance: Alert, Oriented X3, Cooperative, on nasal canula 2L HEENT: Atraumatic, PERRLA, EOMI, Mucous membrane moist/pink Respiratory: Bilateral vesicular breath sound with rales on right lower lobe Cardiovascular: Regular rate, Normal S1, Normal S2, No murmurs, no chest wall tenderness Abdominal: Normal bowel sounds, Soft, No tenderness, No hepatospenomegaly, No masses Extremities: No clubbing, No cyanosis, No edema, Normal pulses, No tenderness/swelling Skin: No rashes, No breakdown, No significant lesion Neuro: Grossly intact cranial nerves Cranial nerves 3-12 NL, Reflexes 2+ Psych/Mental Status: Could not be assessed. laboratory and microbiology Laboratory Tests 05/24/25 05:34 Test 05/24/25 05:34 Range/Units Serum Glucose 132 H 74-106 mg/dL Microbiology Date/Time Source Procedure Growth Status 05/18/25 10:35 Sputum Gram Stain - Final Complete 05/18/25 10:35 Respiratory Culture - Final Pseudomonas aeruginosa Complete 05/14/25 08:24 Voided Urine Urine Culture - Final Complete 05/14/25 02:46 Nose MRSA Screen - Final Complete 05/13/25 17:25 Blood Blood Culture - Final NO GROWTH AFTER 5 DAYS OF INCUBATION. 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 b.i.d. - continue GDM T with metoprolol, Entresto and spironolactone - continue Eliquis 5 mg b.i.d. PULMONARY: Acute hypoxic respiratory failure secondary to exacerbation of CHF/ pneumonia right-sided Gram-positive versus Gram-negative community acquired pneumonia possible aspiration pneumonia Rule out lung malignancy - Right lower lobe atelectasis due to mucous plugging Mucous plugging from L6-L10 and R1-R10 RML BAL performed . 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 - Lactulose 30 mL b.i.d. GENITOURINARY: Acute kidney injury likely secondary to shock / VMN improved - strict I&O - monitor BMP ENDOCRINE: Hypoglycemia resolved - monitor blood sugar closely METABOLIC: Moderate protein calorie malnutrition Hypernatremia - IV 5% DA at 60 mL/hours HEME: Acute DVT of right upper arm Chronic microcytic hypochromic anemia likely due to anemia of chronic disease Thrombocytopenia likely due to cirrhosis - Doppler venous scan of the upper extremity showed deep vein thrombosis of right axillary and subclavian vein and thrombosis of left basilic vein - Eliquis 5 mg p.o. b.i.d. INFECTIOUS DISEASE: Right-sided Gram-positive/ Gram-negative community acquired pneumonia Possible aspiration pneumonia - chest x-ray demonstrated right-sided pneumonia with pulmonary vascular congestion - Preliminary blood cultures were unremarkable and MRSA negative - sputum culture on 05/18 showed Pseudomonas - IV Zosyn 3.375 g Q 8 hours and discontinued vancomycin and cefepime DIET: Pureed diet DVT prophylax:Eloquis GI prophylaxis:Protonix Bowel regimen:Lactulose Code status: modified DNR, no chest compression LINES/DRAINS/ACCESS: Rt upper arm PICC line on 05/14 ETT: Intubated on 05/13/25 IV access: Rt upper arm PICC line on 05/14, rt femoral arterial line 05/15 Wong catheter: placed on 05/13/2025 DISPOSITION: JENNIFER Patient's status discussed with son and [id number] Critical care time spent more than 63 minutes, including patient care, chart review, and updating the family. Case discussed with Dr. Puga Plan discussed with: Patient, Other (RN) My Orders My Orders Orders - DUARTE SPIVEY RESIDENT Procedure Category Date Status Time Pureed DIET 05/24/25 Transmitted Dinner Dietary Evaluation Review Comments: 1. advance TF to Vital HP 55ml/hr providing 115g protwin, [id number] free water supporting pt's needs at 100% protein, 79% energy. 2. Reassess needs when Pt is off vent, and/or medically feasible for PO feedings. Expected Outcomes/Goals: maintain wt, avoid catablism DUARTE SPIVEY RESIDENT May 24, 2025 17:39
[2025-05-24 21:16] LABS: Chloride 105 mmol/L (98-107); Sodium 140 mmol/L (136-145)
[2025-05-24 21:17] LABS: Anion Gap 5 (5-15); Carbon Dioxide 30 mmol/L (20-31)
[2025-05-24 21:21] LABS: Calcium 8.0 mg/dL (8.7-10.4); Potassium 3.4 mmol/L (3.5-5.1)
[2025-05-24 21:23] LABS: BUN/Creatinine Ratio 18.5 (10.0-20.0); Blood Urea Nitrogen 15 mg/dL (9-23)
[2025-05-24 21:24] LABS: Glucose 300 mg/dL (74-106)
--- NOTE | 2025-05-24 21:37 | DVHPN2 ---
Progress Note - Dictate Date Seen: May 24, 2025 Has the PT tested + for MRSA If YES, has PT been informed?: No Medical Necessity Reason Pt with a Central, PICC or Fol: Yes The following are medically ne: PICC Line, Wong Catheter Reason for wong catheter: Strict I&O Subjective Mr. Mayberry is a 74 years old right-handed gentleman with a history of hypertension, diabetes, dyslipidemia, congestive heart failure on home oxygen, liver disease, he was brought to the [facility] on 05[facility]13[facility]26 with a chief complaint of shortness of breath, in the hospital, the patient was found to have acute respiratory failure, combined metabolic respiratory acidosis, and was intubated in the emergency room. I have seen and examined the patient, I have talked to his nurse, he is more confused today, he only oriented to himself, but he still has reasonable social skills Nurse reports he had sometimes on 05/22/2025 He has hypernatremia, he is on free water Urinalysis, 05/13/2025: WBC: 7, urine leukocyte esterase: Negative ABG, 05/14/2025: Hypoxia, metabolic acidosis, 05/15/2025: Metabolic acidosis WBC/HB/PLT/MCV, 05/14/2025: 3.4/11.1/107/69.6, 05/15/25: 15.4/13.9/171/66.3 PT/INR/ABG, 05/14/2025: 12.2/1.71/35.8 BUN/CR, 05/14/2025: 21/1.69 GFR, 05/14/2025: 42 Lactic acid, 05/13/2025: 6.6, 8.3, 9.8 Glucose, 05/14/2025: 44, 40, 136, 116, 106 TBI/AST/ALT/AP, 05/14/2025: 2.5/84/52/209, : 149/170/95/158 Ammonia, 05/14/2025: 54 Vitamin B12, 01/24/2025: 941, 05/14/25: 776 Folic acid, 01/25/2025: 8.94, 05/14/25:9.29 TSH, 01/24/2025: 2.6, 05/14/2025: 4.19 Chest x-ray, 05/14/2025: 1. Adequately positioned endotracheal and enteric tubes new from prior exam. 2. Similar diffuse right and mild left basilar airspace disease. CT head, 05/14/2025: 1. No acute intracranial abnormality. 2. Right ocular lens prosthesis. 3. Mild periventricular and subcortical white matter disease likely related to sequelae of chronic microvascular ischemic changes although other etiologies are not excluded vital signs Vital Sign Date Time Temp Pulse Resp B/P (MAP) Pulse Ox O2 Delivery O2 Flow Rate FiO2 05/24/25 20:00 82 05/24/25 20:00 97.7 17 136/73 (94) 97.7 05/24/25 20:00 98 Nasal Cannula* 2 28 Total Intake and Output 05/23/25 05/23/25 05/24/25 15:00 23:00 07:00 Intake Total 753.32 ml 520 ml 905 ml Output Total 700 ml 550 ml Balance 753.32 ml -180 ml 355 ml medications Current Medications Medications Dose Ordered Sig/Mikki Route Start Time Stop Time Status Last Admin Dose Admin Sodium Chloride 10 ml QSHIFT@10,22 IV 05/14/25 22:00 05/23/25 22:24 10 ML Thiamine HCl 100 mg DAILY IV 05/16/25 10:00 05/23/25 09:28 100 MG Dextrose 50 ml UD PRN IV 05/15/25 13:15 Cancel Dextrose 50 ml UD PRN IV 05/15/25 16:45 Hydralazine HCl 10 mg Q6HP PRN IV 05/19/25 12:00 05/24/25 16:12 10 MG Enteral Nutritional Formula 1,000 ml 55ML/HR GT 05/20/25 09:45 Diagnostic Test (Pha) 1 strip Q6HR 05/21/25 18:00 05/24/25 17:55 1 STRIP Insulin Human Regular Q6HR SC 05/21/25 18:00 05/23/25 06:06 2 UNITS Piperacillin Sod/ Tazobactam Sod 100 ml @ 25 mls/hr Q8HR IV 05/21/25 22:00 05/24/25 14:41 25 MLS/HR Pantoprazole Sodium 40 mg DAILY@0600 PO 05/23/25 06:00 05/23/25 05:33 40 MG Sacubitril/ Valsartan 1 tab BID PO 05/22/25 22:00 05/24/25 14:40 1 TAB Dextrose 1,000 ml @ 60 mls/hr [id number] IV 05/23/25 08:45 05/24/25 14:46 60 MLS/HR Amiodarone HCl 200 mg Q12HR PO 05/23/25 09:45 05/24/25 14:40 200 MG Purified Water 200 ml Q6HR GT 05/23/25 18:00 05/24/25 17:32 200 ML Potassium Chloride 100 ml @ 50 mls/hr Q2H IV 05/23/25 19:15 05/24/25 03:14 UNV Spironolactone 25 mg BID PO 05/24/25 10:00 05/24/25 14:40 25 MG Clopidogrel Bisulfate 75 mg DAILY PO 05/25/25 10:00 Apixaban 5 mg BID PO 05/24/25 22:00 Metoprolol Succinate 25 mg DAILY PO 05/25/25 10:00 objective The patient is well-nourished and well-developed with no distress. MENTAL STATUS: Subjective CRANIAL NERVES: Pupils are round with the right pupil is bigger and nonreactive, left pupil is reactive. He has conjugated eye movement. No signs of facial weakness., sensorimotor examination is normal in bilateral trigeminal distribution SENSATION: Find pinprick and light touch MOTOR: Normal tone in the upper and lower extremity. Normal muscle bulk. No fasciculations. He moves the arms and legs REFLEXES: Deep tendon reflexes are symmetrical. CEREBELLAR/COORDINATION: No ataxia GAIT/STATION: deferred. laboratory and microbiology Laboratory Tests 05/24/25 20:58 05/24/25 05:34 Test 05/24/25 20:58 Range/Units Serum Glucose 300 #H 74-106 mg/dL Problem List Unequal pupil size, secondary to right prosthetic eye Coma resolved Hypoxic encephalopathy Metabolic encephalopathy Hepatic encephalopathy Hypernatremia Respiratory acidosis, resolved Metabolic acidosis, resolved Respiratory failure, improving Cognitive dysfunction/mild cognitive impairment/mild dementia ? Alcohol related dementia/Korsakoff disease ? Alzheimer's dementia Liver failure ? Secondary to alcoholism ? Secondary to congestive heart failure Kidney failure Pneumonia Assessment/Plan Monitoring Supportive treatment JENNIFER care Stabilize vitals p.r.n. Respiratory support p.r.n. Oxygen IV antibiotics Free water Thiamine supplementation Cardiology evaluation Pulmonology evaluation Address cognitive dysfunction when he is mentally better More recommendation per clinical course This medical document was created using an electronic medical record system with [employer] dictation system. Although this document has been carefully reviewed, there may still be some phonetic and typographical errors. These areas are purely typographical due to imperfections of the software programs, and do not reflect any compromise in the patient's medical care Prognosis poor Dietary Evaluation Review Comments: 1. advance TF to Vital HP 55ml/hr providing 115g protwin, [id number] free water supporting pt's needs at 100% protein, 79% energy. 2. Reassess needs when Pt is off vent, and/or medically feasible for PO feedings. Expected Outcomes/Goals: maintain wt, avoid catablism Plan discussed with: Other IZZY BOOKER MD May 24, 2025 21:37
[2025-05-24] MEDS: APIXABAN 5 MG TAB PO SCH (21:56)
[2025-05-24] MEDS: TEMAZEPAM 15 MG CAP PO ONE (21:57)
[2025-05-24] MEDS: MELATONIN 5 MG TAB PO ONE (22:00)
[2025-05-25] VITALS (22 sets, daily range): BP systolic 99–165; BP diastolic 58–91; PULSE 64–92; RESP 13–21; TEMP 97.7–98.2; O2SAT 92–98
[2025-05-25 05:37] LABS: Nucleated Red Blood Cells % 0.1 %
[2025-05-25 05:38] LABS: Hematocrit 31.7 % (41.0-53.0); Hemoglobin 10.5 g/dL (13.5-17.5); Mean Corpuscular Hemoglobin 21.6 pg (28.0-32.0); Mean Corpuscular Volume 65.6 fL (80.0-100.0)
[2025-05-25 05:42] LABS: Anion Gap 6 (5-15); Carbon Dioxide 31 mmol/L (20-31); Sodium 144 mmol/L (136-145)
[2025-05-25 05:44] LABS: Calcium 8.2 mg/dL (8.7-10.4); Chloride 107 mmol/L (98-107); Potassium 3.0 mmol/L (3.5-5.1)
[2025-05-25 05:47] LABS: Glucose 91 mg/dL (74-106)
[2025-05-25 05:48] LABS: BUN/Creatinine Ratio 16.7 (10.0-20.0); Blood Urea Nitrogen 12 mg/dL (9-23)
[2025-05-25] MEDS: POTASSIUM CHL 20MEQ/100ML 100 ML IV ONE (07:16)
[2025-05-25] MEDS: CLOPIDOGREL BISULFATE 75 MG TAB PO SCH (09:41)
[2025-05-25] MEDS: METOPROLOL SUCCINATE XL 50 MG TAB PO SCH (09:41)
--- NOTE | 2025-05-25 14:22 | DVHPN2 ---
Progress Note - Dictate Date Seen: May 25, 2025 Has the PT tested + for MRSA If YES, has PT been informed?: No Medical Necessity Reason Pt with a Central, PICC or Fol: Yes The following are medically ne: PICC Line, Wong Catheter Reason for wong catheter: Strict I&O vital signs Vital Sign Date Time Temp Pulse Resp B/P (MAP) Pulse Ox O2 Delivery O2 Flow Rate FiO2 05/25/25 12:00 97.7 80 17 141/77 (98) 96 97.7 05/25/25 12:00 Nasal Cannula* 2 28 Total Intake and Output 05/24/25 05/24/25 05/25/25 15:00 23:00 07:00 Intake Total 400.0 ml 1417.5 ml 1095 ml Output Total 575 ml 450 ml Balance 400.0 ml 842.5 ml 645 ml medications Current Medications Medications Dose Ordered Sig/Mikki Route Start Time Stop Time Status Last Admin Dose Admin Sodium Chloride 10 ml QSHIFT@10,22 IV 05/14/25 22:00 05/25/25 09:42 10 ML Thiamine HCl 100 mg DAILY IV 05/16/25 10:00 05/25/25 09:53 100 MG Dextrose 50 ml UD PRN IV 05/15/25 13:15 Cancel Dextrose 50 ml UD PRN IV 05/15/25 16:45 Hydralazine HCl 10 mg Q6HP PRN IV 05/19/25 12:00 05/24/25 16:12 10 MG Enteral Nutritional Formula 1,000 ml 55ML/HR GT 05/20/25 09:45 Diagnostic Test (Pha) 1 strip Q6HR 05/21/25 18:00 05/25/25 12:08 1 STRIP Insulin Human Regular Q6HR SC 05/21/25 18:00 05/25/25 12:39 2 UNITS Piperacillin Sod/ Tazobactam Sod 100 ml @ 25 mls/hr Q8HR IV 05/21/25 22:00 05/25/25 05:25 25 MLS/HR Pantoprazole Sodium 40 mg DAILY@0600 PO 05/23/25 06:00 05/23/25 05:33 40 MG Sacubitril/ Valsartan 1 tab BID PO 05/22/25 22:00 05/25/25 09:39 1 TAB Dextrose 1,000 ml @ 60 mls/hr [id number] IV 05/23/25 08:45 05/25/25 05:45 60 MLS/HR Amiodarone HCl 200 mg Q12HR PO 05/23/25 09:45 05/25/25 09:40 200 MG Purified Water 200 ml Q6HR GT 05/23/25 18:00 05/25/25 12:07 200 ML Potassium Chloride 100 ml @ 50 mls/hr Q2H IV 05/23/25 19:15 05/24/25 03:14 UNV Spironolactone 25 mg BID PO 05/24/25 10:00 05/25/25 09:40 25 MG Clopidogrel Bisulfate 75 mg DAILY PO 05/25/25 10:00 05/25/25 09:41 75 MG Apixaban 5 mg BID PO 05/24/25 22:00 05/25/25 09:39 5 MG Metoprolol Succinate 25 mg DAILY PO 05/25/25 10:00 05/25/25 09:41 25 MG laboratory and microbiology Laboratory Tests 05/25/25 05:16 Test 05/25/25 05:16 Range/Units Serum Glucose 91 # 74-106 mg/dL Assessment/Plan Impression Acute hypoxemic respiratory failure Pneumonia Atelectasis CHF Patient seen and examined Events S/p extubation Low oxygen requirements On 2 liters nasal cannula No distress Labs and imaging reviewed Management Supplemental oxygen Titrate to maintain sats 90% or above Incentive spirometry Continue antibiotics F/u cultures Bronchodilators Monitor renal function Monitor electrolytes Supplement as needed F/u cardiology DVT prophylaxis Dietary Evaluation Review Comments: 1. advance TF to Vital HP 55ml/hr providing 115g protwin, [id number] free water supporting pt's needs at 100% protein, 79% energy. 2. Reassess needs when Pt is off vent, and/or medically feasible for PO feedings. Expected Outcomes/Goals: maintain wt, avoid catablism Plan discussed with: Patient CYNTHIA PERRY MD May 25, 2025 14:22
--- NOTE | 2025-05-25 17:45 | DVHPN2 ---
Progress Note Date Seen: May 25, 2025 Has the PT tested + for MRSA If YES, has PT been informed?: No Medical Necessity Reason Pt with a Central, PICC or Fol: Yes The following are medically ne: PICC Line, Wong Catheter Reason for wong catheter: Strict I&O Objective vital signs Vital Sign Date Time Temp Pulse Resp B/P (MAP) Pulse Ox O2 Delivery O2 Flow Rate FiO2 05/25/25 16:51 165/71 05/25/25 16:00 70 18 05/25/25 12:00 97.7 96 97.7 05/25/25 12:00 Nasal Cannula* 2 28 Total Intake and Output 05/24/25 05/24/25 05/25/25 15:00 23:00 07:00 Intake Total 400.0 ml 1417.5 ml 1095 ml Output Total 575 ml 450 ml Balance 400.0 ml 842.5 ml 645 ml medications Current Medications Medications Dose Ordered Sig/Mikki Route Start Time Stop Time Status Last Admin Dose Admin Sodium Chloride 10 ml QSHIFT@ IV 05/14/25 22:00 05/25/25 09:42 10 ML Thiamine HCl 100 mg DAILY IV 05/16/25 10:00 05/25/25 09:53 100 MG Dextrose 50 ml UD PRN IV 05/15/25 13:15 Cancel Dextrose 50 ml UD PRN IV 05/15/25 16:45 Hydralazine HCl 10 mg Q6HP PRN IV 05/19/25 12:00 05/25/25 16:51 10 MG Enteral Nutritional Formula 1,000 ml 55ML/HR GT 05/20/25 09:45 Diagnostic Test (Pha) 1 strip Q6HR 05/21/25 18:00 05/25/25 12:08 1 STRIP Insulin Human Regular Q6HR SC 05/21/25 18:00 05/25/25 12:39 2 UNITS Piperacillin Sod/ Tazobactam Sod 100 ml @ 25 mls/hr Q8HR IV 05/21/25 22:00 05/25/25 16:50 25 MLS/HR Pantoprazole Sodium 40 mg DAILY@0600 PO 05/23/25 06:00 05/23/25 05:33 40 MG Sacubitril/ Valsartan 1 tab BID PO 05/22/25 22:00 05/25/25 09:39 1 TAB Dextrose 1,000 ml @ 60 mls/hr [id number] IV 05/23/25 08:45 05/25/25 05:45 60 MLS/HR Amiodarone HCl 200 mg Q12HR PO 05/23/25 09:45 05/25/25 09:40 200 MG Purified Water 200 ml Q6HR GT 05/23/25 18:00 05/25/25 12:07 200 ML Potassium Chloride 100 ml @ 50 mls/hr Q2H IV 05/23/25 19:15 05/24/25 03:14 UNV Spironolactone 25 mg BID PO 05/24/25 10:00 05/25/25 09:40 25 MG Clopidogrel Bisulfate 75 mg DAILY PO 05/25/25 10:00 05/25/25 09:41 75 MG Apixaban 5 mg BID PO 05/24/25 22:00 05/25/25 09:39 5 MG Metoprolol Succinate 25 mg DAILY PO 05/25/25 10:00 05/25/25 09:41 25 MG Examination: GENERAL:Abnormal, SKIN:Normal laboratory and microbiology Laboratory Tests 05/25/25 05:16 Test 05/25/25 05:16 Range/Units Serum Glucose 91 # 74-106 mg/dL Microbiology Date/Time Source Procedure Growth Status 05/18/25 10:35 Sputum Gram Stain - Final Complete 05/18/25 10:35 Respiratory Culture - Final Pseudomonas aeruginosa Complete 05/14/25 08:24 Voided Urine Urine Culture - Final Complete 05/14/25 02:46 Nose MRSA Screen - Final Complete 05/13/25 17:25 Blood Blood Culture - Final NO GROWTH AFTER 5 DAYS OF INCUBATION. Complete Problem List/Assessment/Plan Problem List/Assessment/Plan 74-year-old male Acute kidney injury hemodynamically mediated Decompensated heart failure , severe systolic heart failure Acute respiratory failure extubated Hypokalemia Hypernatremia Hypertension Diabetes Acute kidney injury has resolved Continue to increase patient's blood pressure medications Replacement of potassium Noted phosphorus level was low today, repeat and confirmed phosphorus and magnesium and replace as needed Currently on free water T5 encourage p.o. Rest of tenderness for primary medical team Plan discussed with: Patient My Orders My Orders Orders - CHEY EVERETT MD Procedure Category Date Status Time Phosphorus LAB 05/25/25 Transmitted 17:40 Magnesium LAB 05/25/25 Transmitted 17:41 Dietary Evaluation Review Comments: 1. advance TF to Vital HP 55ml/hr providing 115g protwin, [id number] free water supporting pt's needs at 100% protein, 79% energy. 2. Reassess needs when Pt is off vent, and/or medically feasible for PO feedings. Expected Outcomes/Goals: maintain wt, avoid catablism Total Time (mins): 33 CHEY EVERETT MD May 25, 2025 17:45
--- NOTE | 2025-05-25 19:32 | DVHPN2 ---
Assessment/Plan Assessment/Plan downgrade to tele. on oral amio. 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 b.i.d. - continue GDM T with metoprolol, Entresto and spironolactone - continue Eliquis 5 mg b.i.d. PULMONARY: Acute hypoxic respiratory failure secondary to exacerbation of CHF/ pneumonia right-sided Gram-positive versus Gram-negative community acquired pneumonia possible aspiration pneumonia Rule out lung malignancy - Right lower lobe atelectasis due to mucous plugging Mucous plugging from L6-L10 and R1-R10 RML BAL performed . 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 - Lactulose 30 mL b.i.d. GENITOURINARY: Acute kidney injury likely secondary to shock / VMN improved - strict I&O - monitor BMP ENDOCRINE: Hypoglycemia resolved - monitor blood sugar closely METABOLIC: Moderate protein calorie malnutrition Hypernatremia - IV 5% DA at 60 mL/hours HEME: Acute DVT of right upper arm Chronic microcytic hypochromic anemia likely due to anemia of chronic disease Thrombocytopenia likely due to cirrhosis - Doppler venous scan of the upper extremity showed deep vein thrombosis of right axillary and subclavian vein and thrombosis of left basilic vein - Eliquis 5 mg p.o. b.i.d. INFECTIOUS DISEASE: Right-sided Gram-positive/ Gram-negative community acquired pneumonia Possible aspiration pneumonia - chest x-ray demonstrated right-sided pneumonia with pulmonary vascular congestion - Preliminary blood cultures were unremarkable and MRSA negative - sputum culture on 05/18 showed Pseudomonas - IV Zosyn 3.375 g Q 8 hours and discontinued vancomycin and cefepime DIET: Pureed diet DVT prophylax:Eloquis GI prophylaxis:Protonix Bowel regimen:Lactulose Code status: modified DNR, no chest compression LINES/DRAINS/ACCESS: Rt upper arm PICC line on 05/14 ETT: Intubated on 05/13/25 IV access: Rt upper arm PICC line on 05/14, rt femoral arterial line 05/15 Edwards catheter: placed on 05/13/2025 Plan discussed with: Patient My Orders Orders - CHEKO JIANG MD Procedure Category Date Status Time Transfer Orders XFER 05/25/25 Transmitted 15:33 Date of Service: May 25, 2025 Billing Provider: CHEKO JIANG MD Common Visit Codes: [id number] INP/OBS CARE(HIGH) CHEKO JIANG MD May 25, 2025 19:32
[2025-05-25 22:18] LABS: Magnesium 1.8 mg/dL (1.6-2.6)
--- NOTE | 2025-05-25 22:18 | DVHPN2 ---
Progress Note - Dictate Date Seen: May 25, 2025 Has the PT tested + for MRSA If YES, has PT been informed?: No Medical Necessity Reason Pt with a Central, PICC or Fol: Yes The following are medically ne: PICC Line, Wong Catheter Reason for wong catheter: Strict I&O Subjective Mr. Mayberry is a 74 years old right-handed gentleman with a history of hypertension, diabetes, dyslipidemia, congestive heart failure on home oxygen, liver disease, he was brought to the [facility] on 05/13/2026 with a chief complaint of shortness of breath, in the hospital, the patient was found to have acute respiratory failure, combined metabolic respiratory acidosis, and was intubated in the emergency room. I have seen and examined the patient, I have talked to his nurse, he is awake, oriented to person, place, good social skills Sodium level was normal earlier today Urinalysis, 05/13/2025: WBC: 7, urine leukocyte esterase: Negative ABG, 05/14/2025: Hypoxia, metabolic acidosis, 05/15/2025: Metabolic acidosis WBC/HB/PLT/MCV, 05/14/2025: 3.4/11.1/107/69.6, 05/15/25: 15.4/13.9/171/66.3 PT/INR/ABG, 05/14/2025: 12.2/1.71/35.8 Na, 05/16/2025: 144, 147, 05/17/2025: 148, 152, 05/19/2025: 155, 154, 05/21/2025: 145. 05/22/25: 156, 05/23/25: 155, 05/24/2025: 150, 140, 05/25/25: 144 BUN/CR, 05/14/2025: 21/1.69 GFR, 05/14/2025: 42 Lactic acid, 05/13/2025: 6.6, 8.3, 9.8 Glucose, 05/14/2025: 44, 40, 136, 116, 106 TBI/AST/ALT/AP, 05/14/2025: 2.5/84/52/209, : 149/170/95/158 Ammonia, 05/14/2025: 54 Vitamin B12, 01/24/2025: 941, 05/14/25: 776 Folic acid, 01/25/2025: 8.94, 05/14/25:9.29 TSH, 01/24/2025: 2.6, 05/14/2025: 4.19 Chest x-ray, 05/14/2025: 1. Adequately positioned endotracheal and enteric tubes new from prior exam. 2. Similar diffuse right and mild left basilar airspace disease. CT head, 05/14/2025: 1. No acute intracranial abnormality. 2. Right ocular lens prosthesis. 3. Mild periventricular and subcortical white matter disease likely related to sequelae of chronic microvascular ischemic changes although other etiologies are not excluded vital signs Vital Sign Date Time Temp Pulse Resp B/P (MAP) Pulse Ox O2 Delivery O2 Flow Rate FiO2 05/25/25 21:00 98.1 74 17 147/83 (104) 98 98.1 05/25/25 18:00 Nasal Cannula* 2 28 Total Intake and Output 05/24/25 05/24/25 05/25/25 15:00 23:00 07:00 Intake Total 400.0 ml 1417.5 ml 1095 ml Output Total 575 ml 450 ml Balance 400.0 ml 842.5 ml 645 ml medications Current Medications Medications Dose Ordered Sig/Mikki Route Start Time Stop Time Status Last Admin Dose Admin Sodium Chloride 10 ml QSHIFT@10,22 IV 05/14/25 22:00 05/25/25 09:42 10 ML Thiamine HCl 100 mg DAILY IV 05/16/25 10:00 05/25/25 09:53 100 MG Dextrose 50 ml UD PRN IV 05/15/25 13:15 Cancel Dextrose 50 ml UD PRN IV 05/15/25 16:45 Hydralazine HCl 10 mg Q6HP PRN IV 05/19/25 12:00 05/25/25 16:51 10 MG Enteral Nutritional Formula 1,000 ml 55ML/HR GT 05/20/25 09:45 Diagnostic Test (Pha) 1 strip Q6HR 05/21/25 18:00 05/25/25 18:00 1 STRIP Insulin Human Regular Q6HR SC 05/21/25 18:00 05/25/25 18:00 2 UNITS Piperacillin Sod/ Tazobactam Sod 100 ml @ 25 mls/hr Q8HR IV 05/21/25 22:00 05/25/25 16:50 25 MLS/HR Pantoprazole Sodium 40 mg DAILY@0600 PO 05/23/25 06:00 05/23/25 05:33 40 MG Sacubitril/ Valsartan 1 tab BID PO 05/22/25 22:00 05/25/25 09:39 1 TAB Dextrose 1,000 ml @ 60 mls/hr [id number] IV 05/23/25 08:45 05/25/25 05:45 60 MLS/HR Amiodarone HCl 200 mg Q12HR PO 05/23/25 09:45 05/25/25 09:40 200 MG Purified Water 200 ml Q6HR GT 05/23/25 18:00 05/25/25 18:00 200 ML Potassium Chloride 100 ml @ 50 mls/hr Q2H IV 05/23/25 19:15 05/24/25 03:14 UNV Spironolactone 25 mg BID PO 05/24/25 10:00 05/25/25 09:40 25 MG Clopidogrel Bisulfate 75 mg DAILY PO 05/25/25 10:00 05/25/25 09:41 75 MG Apixaban 5 mg BID PO 05/24/25 22:00 05/25/25 09:39 5 MG Metoprolol Succinate 25 mg DAILY PO 05/25/25 10:00 05/25/25 09:41 25 MG objective The patient is well-nourished and well-developed with no distress. MENTAL STATUS: Subjective CRANIAL NERVES: Pupils are round with the right pupil is bigger and nonreactive, left pupil is reactive. He has conjugated eye movement. No signs of facial weakness., sensorimotor examination is normal in bilateral trigeminal distribution SENSATION: Find pinprick and light touch MOTOR: Normal tone in the upper and lower extremity. Normal muscle bulk. No fasciculations. He moves the arms and legs REFLEXES: Deep tendon reflexes are symmetrical. CEREBELLAR/COORDINATION: No ataxia GAIT/STATION: deferred. laboratory and microbiology Laboratory Tests 05/25/25 05:16 Test 05/25/25 05:16 Range/Units Serum Glucose 91 # 74-106 mg/dL Problem List Unequal pupil size, secondary to right prosthetic eye Coma resolved Hypoxic encephalopathy Metabolic encephalopathy Hepatic encephalopathy Hypernatremia Respiratory acidosis, resolved Metabolic acidosis, resolved Respiratory failure, improving Cognitive dysfunction/mild cognitive impairment/mild dementia ? Alcohol related dementia/Korsakoff disease ? Alzheimer's dementia Liver failure ? Secondary to alcoholism ? Secondary to congestive heart failure Kidney failure Pneumonia Assessment/Plan Monitoring Supportive treatment Telemetry. Oxygen IV antibiotics Free water Thiamine supplementation Cardiology on case Pulmonology on case Address cognitive dysfunction when he is mentally better More recommendation per clinical course This medical document was created using an electronic medical record system with [employer] dictation system. Although this document has been carefully reviewed, there may still be some phonetic and typographical errors. These areas are purely typographical due to imperfections of the software programs, and do not reflect any compromise in the patient's medical care Prognosis poor Dietary Evaluation Review Comments: 1. advance TF to Vital HP 55ml/hr providing 115g protwin, [id number] free water supporting pt's needs at 100% protein, 79% energy. 2. Reassess needs when Pt is off vent, and/or medically feasible for PO feedings. Expected Outcomes/Goals: maintain wt, avoid catablism Plan discussed with: Other IZZY BOOKER MD May 25, 2025 22:18
[2025-05-26] VITALS (11 sets, daily range): BP systolic 125–159; BP diastolic 71–90; PULSE 70–85; RESP 16–20; TEMP 97.6–98.2; O2SAT 92–99
--- NOTE | 2025-05-26 09:25 | DVHPN2 ---
Progress Note Date Seen: May 26, 2025 Has the PT tested + for MRSA If YES, has PT been informed?: No Medical Necessity Reason Pt with a Central, PICC or Fol: Yes The following are medically ne: PICC Line, Wong Catheter Reason for wong catheter: Strict I&O Subjective Patient reports: Feels better Changes from previous H/P or p: No Changes Objective vital signs Vital Sign Date Time Temp Pulse Resp B/P (MAP) Pulse Ox O2 Delivery O2 Flow Rate FiO2 05/26/25 08:44 97.9 72 16 146/77 (100) 99 97.9 05/26/25 08:00 Nasal Cannula* 2 28 Total Intake and Output 05/25/25 05/25/25 05/26/25 15:00 23:00 07:00 Intake Total 530 ml 885 ml 420 ml Output Total 700 ml 700 ml Balance 530 ml 185 ml -280 ml medications Current Medications Medications Dose Ordered Sig/Mikki Route Start Time Stop Time Status Last Admin Dose Admin Sodium Chloride 10 ml QSHIFT@ IV 05/14/25 22:00 05/25/25 22:26 10 ML Thiamine HCl 100 mg DAILY IV 05/16/25 10:00 05/25/25 09:53 100 MG Dextrose 50 ml UD PRN IV 05/15/25 13:15 Cancel Dextrose 50 ml UD PRN IV 05/15/25 16:45 Hydralazine HCl 10 mg Q6HP PRN IV 05/19/25 12:00 05/25/25 16:51 10 MG Enteral Nutritional Formula 1,000 ml 55ML/HR GT 05/20/25 09:45 Diagnostic Test (Pha) 1 strip Q6HR 05/21/25 18:00 05/26/25 05:28 1 STRIP Insulin Human Regular Q6HR SC 05/21/25 18:00 05/25/25 18:00 2 UNITS Piperacillin Sod/ Tazobactam Sod 100 ml @ 25 mls/hr Q8HR IV 05/21/25 22:00 05/26/25 05:14 25 MLS/HR Pantoprazole Sodium 40 mg DAILY@0600 PO 05/23/25 06:00 05/26/25 05:14 40 MG Sacubitril/ Valsartan 1 tab BID PO 05/22/25 22:00 05/25/25 22:28 1 TAB Dextrose 1,000 ml @ 60 mls/hr [id number] IV 05/23/25 08:45 05/26/25 05:12 60 MLS/HR Amiodarone HCl 200 mg Q12HR PO 05/23/25 09:45 05/25/25 22:27 200 MG Purified Water 200 ml Q6HR GT 05/23/25 18:00 05/26/25 05:13 200 ML Potassium Chloride 100 ml @ 50 mls/hr Q2H IV 05/23/25 19:15 05/24/25 03:14 UNV Spironolactone 25 mg BID PO 05/24/25 10:00 05/25/25 22:27 25 MG Clopidogrel Bisulfate 75 mg DAILY PO 05/25/25 10:00 05/25/25 09:41 75 MG Apixaban 5 mg BID PO 05/24/25 22:00 05/25/25 22:28 5 MG Metoprolol Succinate 25 mg DAILY PO 05/25/25 10:00 05/25/25 09:41 25 MG Examination: GENERAL:Abnormal, CVS:Abnormal laboratory and microbiology Laboratory Tests 05/25/25 05:16 Test 05/25/25 05:16 Range/Units Serum Glucose 91 # 74-106 mg/dL Microbiology Date/Time Source Procedure Growth Status 05/18/25 10:35 Sputum Gram Stain - Final Complete 05/18/25 10:35 Respiratory Culture - Final Pseudomonas aeruginosa Complete 05/14/25 08:24 Voided Urine Urine Culture - Final Complete 05/14/25 02:46 Nose MRSA Screen - Final Complete 05/13/25 17:25 Blood Blood Culture - Final NO GROWTH AFTER 5 DAYS OF INCUBATION. Complete Problem List/Assessment/Plan Problem List/Assessment/Plan 74-year-old male Acute kidney injury hemodynamically mediated Decompensated heart failure , severe systolic heart failure EF < 10% Acute respiratory failure extubated Hypokalemia Hypernatremia Hypertension Diabetes severe CAd s/p heart cath Acute kidney injury has resolved Continue to increase patient's blood pressure medications , increase aldactone to 50 BID. Replacement of potassium cardiology reports severe CAD on [facility] rec medical management Noted phosphorus level was low today, Iv replacement Currently on free water encourage p.o. Rest of tenderness for primary medical team stable from renal standpoint will sign off the case Plan discussed with: Patient My Orders My Orders Orders - CHEY EVERETT MD Procedure Category Date Status Time Basic Metabolic Panel LAB 05/26/25 Logged 04:00 Phosphorus LAB 05/26/25 Logged 04:00 Magnesium LAB 05/26/25 Logged 04:00 Potassium Phosphate PHA 05/26/25 Logged 08:00 Dietary Evaluation Review Comments: 1. advance TF to Vital HP 55ml/hr providing 115g protwin, [id number] free water supporting pt's needs at 100% protein, 79% energy. 2. Reassess needs when Pt is off vent, and/or medically feasible for PO feedings. Expected Outcomes/Goals: maintain wt, avoid catablism CHEY EVERETT MD May 26, 2025 09:25
[2025-05-26] MEDS: SPIRONOLACTONE 25 MG TAB PO SCH (10:10)
[2025-05-26] MEDS: MAGNESIUM SULFATE 1GM/100ML 100 ML IV SCH (11:24)
[2025-05-26] MEDS: POTASSIUM PHOSPHATE 22 MEQ in SODIUM CHL 0.9% 100 ML IV ONE (14:20)
[2025-05-26 14:48] LABS: Hematocrit 31.0 % (41.0-53.0)
[2025-05-26 14:52] LABS: Hemoglobin 9.9 g/dL (13.5-17.5); Mean Corpuscular Hemoglobin 21.2 pg (28.0-32.0); Mean Corpuscular Volume 66.4 fL (80.0-100.0); Nucleated Red Blood Cells % 0.1 %
--- NOTE | 2025-05-26 14:54 | DVHPN2 ---
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 b.i.d. - continue GDM T with metoprolol, Entresto and spironolactone - continue Eliquis 5 mg b.i.d. PULMONARY: Acute hypoxic respiratory failure secondary to exacerbation of CHF/ pneumonia right-sided Gram-positive versus Gram-negative community acquired pneumonia possible aspiration pneumonia Rule out lung malignancy - Right lower lobe atelectasis due to mucous plugging Mucous plugging from L6-L10 and R1-R10 RML BAL performed . 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 - Lactulose 30 mL b.i.d. GENITOURINARY: Acute kidney injury likely secondary to shock / VMN improved - strict I&O - monitor BMP ENDOCRINE: Hypoglycemia resolved - monitor blood sugar closely METABOLIC: Moderate protein calorie malnutrition Hypernatremia - IV 5% DA at 60 mL/hours HEME: Acute DVT of right upper arm Chronic microcytic hypochromic anemia likely due to anemia of chronic disease Thrombocytopenia likely due to cirrhosis - Doppler venous scan of the upper extremity showed deep vein thrombosis of right axillary and subclavian vein and thrombosis of left basilic vein - Eliquis 5 mg p.o. b.i.d. INFECTIOUS DISEASE: Right-sided Gram-positive/ Gram-negative community acquired pneumonia Possible aspiration pneumonia - chest x-ray demonstrated right-sided pneumonia with pulmonary vascular congestion - Preliminary blood cultures were unremarkable and MRSA negative - sputum culture on 05/18 showed Pseudomonas - IV Zosyn 3.375 g Q 8 hours and discontinued vancomycin and cefepime DIET: Pureed diet DVT prophylax:Eloquis GI prophylaxis:Protonix Bowel regimen:Lactulose Code status: modified DNR, no chest compression LINES/DRAINS/ACCESS: Rt upper arm PICC line on 05/14 ETT: Intubated on 05/13/25 IV access: Rt upper arm PICC line on 05/14, rt femoral arterial line 05/15 Edwards catheter: placed on 05/13/2025 Plan discussed with: Patient My Orders Orders - CHEKO JIANG MD Procedure Category Date Status Time Transfer Orders XFER 05/25/25 Transmitted 15:33 Complete Blood Count LAB 05/26/25 In Process 04:00 Date of Service: May 26, 2025 Billing Provider: CHEKO JIANG MD Common Visit Codes: [id number] INP/OBS CARE(HIGH) CHEKO JIANG MD May 26, 2025 14:54
[2025-05-26 15:02] LABS: Chloride 106 mmol/L (98-107); Sodium 140 mmol/L (136-145)
[2025-05-26 15:03] LABS: Anion Gap 8 (5-15); Carbon Dioxide 26 mmol/L (20-31)
[2025-05-26 15:08] LABS: BUN/Creatinine Ratio 16.7 (10.0-20.0); Blood Urea Nitrogen 9 mg/dL (9-23)
[2025-05-26 15:09] LABS: Magnesium 2.1 mg/dL (1.6-2.6)
[2025-05-26 15:10] LABS: Calcium 7.4 mg/dL (8.7-10.4); Glucose 107 mg/dL (74-106); Potassium 2.8 mmol/L (3.5-5.1)
[2025-05-26] MEDS: ACETAMINOPHEN 325 MG TAB PO PRN (21:21)
[2025-05-27] VITALS (7 sets, daily range): BP systolic 125–157; BP diastolic 76–99; PULSE 74–92; RESP 16–20; TEMP 97–98.2; O2SAT 98–100
[2025-05-27 06:19] LABS: Anion Gap 6 (5-15); Carbon Dioxide 29 mmol/L (20-31); Chloride 104 mmol/L (98-107); Sodium 139 mmol/L (136-145)
[2025-05-27 06:24] LABS: Glucose 94 mg/dL (74-106)
[2025-05-27 06:25] LABS: BUN/Creatinine Ratio 10.0 (10.0-20.0); Magnesium 2.0 mg/dL (1.6-2.6)
[2025-05-27 06:26] LABS: Blood Urea Nitrogen 6 mg/dL (9-23); Calcium 8.0 mg/dL (8.7-10.4); Potassium 3.1 mmol/L (3.5-5.1)
[2025-05-27 06:39] LABS: Mean Corpuscular Volume 65.7 fL (80.0-100.0)
[2025-05-27 06:42] LABS: Hematocrit 27.6 % (41.0-53.0); Hemoglobin 9.1 g/dL (13.5-17.5); Mean Corpuscular Hemoglobin 21.7 pg (28.0-32.0); Nucleated Red Blood Cells % 0.1 %
[2025-05-27] MEDS: APIXABAN 5 MG TAB PO SCH (11:04)
[2025-05-27] MEDS: EMPAGLIFLOZIN 10 MG TAB PO SCH (11:05)
[2025-05-27] MEDS: POTASSIUM EFFERVESENT TAB 25 MEQ PO ONE (11:05)
[2025-05-27] MEDS: METOPROLOL SUCCINATE XL 50 MG TAB PO SCH (11:15)
--- NOTE | 2025-05-27 11:25 | DVHPNRES ---
Progress Note Date Seen: May 27, 2025 Resident Creating Document: AGNIESZKA CHENG RESIDENT Has the PT tested + for MRSA If YES, has PT been informed?: No Medical Necessity Reason Pt with a Central, PICC or Fol: Yes The following are medically ne: PICC Line, Wong Catheter Reason for wong catheter: Strict I&O Subjective Review of Systems * 74-year-old male with end-stage HFrEF (EF 10%), CAD, and cirrhosis. * Hemodynamics: BP fluctuating between SBP 489756 / DBP 8597 mmHg. HR stable in 6070s, sinus rhythm on telemetry. * Oxygen: Stable on 2 L NC, SpO? 98%. * Labs: * Hb: 9.1 ( from 9.9). * Cr: 0.60 (improved), GFR >75. * Mg: normal. * K?: low, replaced with 50 mEq (IR + ER PO). * Phos: low, replacement initiated. * FOBT positive. * Medications updated: * Spironolactone increased to 50 mg PO BID. * Metoprolol increased to 50 mg PO BID. * Plavix continued. * Amiodarone PO 200 mg BID. * Eliquis reduced from 5 - 2.5 BID given GI findings/FOBT positivity. * Empagliflozin (Jardiance) initiated. * Atorvastatin not started due to cirrhosis and elevated LFTs. * Procedures: Angiogram revealed RCA stenosis ? aggressive medical therapy recommended. * PICC line: Consider discontinuation due to upper extremity DVTs. Objective vital signs Vital Sign Date Time Temp Pulse Resp B/P (MAP) Pulse Ox O2 Delivery O2 Flow Rate FiO2 05/27/25 11:08 92 150/85 05/27/25 09:00 97.0 17 100 97.0 05/27/25 08:00 Nasal Cannula* 2 28 Total Intake and Output 05/26/25 05/26/25 05/27/25 15:00 23:00 07:00 Intake Total 100 ml 960 ml 100 ml Output Total 800 ml Balance 100 ml 160 ml 100 ml medications Current Medications Medications Dose Ordered Sig/Mikki Route Start Time Stop Time Status Last Admin Dose Admin Sodium Chloride 10 ml QSHIFT@10,22 IV 05/14/25 22:00 05/26/25 21:22 10 ML Thiamine HCl 100 mg DAILY IV 05/16/25 10:00 05/26/25 10:04 100 MG Dextrose 50 ml UD PRN IV 05/15/25 13:15 Cancel Dextrose 50 ml UD PRN IV 05/15/25 16:45 Hydralazine HCl 10 mg Q6HP PRN IV 05/19/25 12:00 05/26/25 13:30 10 MG Diagnostic Test (Pha) 1 strip Q6HR 05/21/25 18:00 05/27/25 05:51 1 STRIP Insulin Human Regular Q6HR SC 05/21/25 18:00 05/26/25 12:57 3 UNITS Piperacillin Sod/ Tazobactam Sod 100 ml @ 25 mls/hr Q8HR IV 05/21/25 22:00 05/27/25 05:17 25 MLS/HR Sacubitril/ Valsartan 1 tab BID PO 05/22/25 22:00 05/27/25 11:08 1 TAB Amiodarone HCl 200 mg Q12HR PO 05/23/25 09:45 05/27/25 11:06 200 MG Potassium Chloride 100 ml @ 50 mls/hr Q2H IV 05/23/25 19:15 05/24/25 03:14 UNV Clopidogrel Bisulfate 75 mg DAILY PO 05/25/25 10:00 05/27/25 11:04 75 MG Metoprolol Succinate 25 mg DAILY PO 05/25/25 10:00 05/27/25 11:08 25 MG Spironolactone 50 mg BID PO 05/26/25 10:00 05/27/25 11:07 50 MG Acetaminophen 650 mg Q8HP PRN PO 05/26/25 21:00 05/26/25 21:21 650 MG Empaglifozin 10 mg DAILY PO 05/27/25 10:00 05/27/25 11:05 10 MG Apixaban 2.5 mg BID PO 05/27/25 10:00 05/27/25 11:04 2.5 MG Pantoprazole Sodium 40 mg DAILY IV 05/28/25 10:00 Examination General: Stable, alert, on NC CV: HR 6070, regular, S3, TR murmur, JVD. Resp: Clear to auscultation, no crackles. Abdomen: Soft, mildly distended, hepatomegaly. Extremities: Trace pedal edema.Neuro: Oriented, no deficits. Skin: Warm, well perfused. laboratory and microbiology Laboratory Tests 05/27/25 05:35 Test 05/27/25 05:35 Range/Units Serum Glucose 94 74-106 mg/dL Microbiology Date/Time Source Procedure Growth Status 05/18/25 10:35 Sputum Gram Stain - Final Complete 05/18/25 10:35 Respiratory Culture - Final Pseudomonas aeruginosa Complete 05/14/25 08:24 Voided Urine Urine Culture - Final Complete 05/14/25 02:46 Nose MRSA Screen - Final Complete 05/13/25 17:25 Blood Blood Culture - Final NO GROWTH AFTER 5 DAYS OF INCUBATION. Complete Problem List/Assessment/Plan Problem List/Assessment/Plan Assessment 1. 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 * SCAI Shock Stage CD (classic/deteriorating cardiogenic shock). * Killip IV (cardiogenic shock). * Acute ischemic vs progressive dilated cardiomyopathy. Paroxysmal AFib with RVR/frequent PVCs 2. Cardiogenic shock requiring pressors (dopamine + norepinephrine). 3. Acute hypoxemic respiratory failure (intubated, FiO2 80%, PEEP 7) due to pneumonia + CHF. 4. Right-sided pneumonia , sepsis physiology with lactic acidosis. 5. SAPNA (KDIGO stage 12) from hypoperfusion, sepsis, diuresis. 6. 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 Plan/Recommendation Plan Cardiovascular: * Continue GDMT: Entresto , Metoprolol 50 mg BID, Spironolactone 50 mg BID, Jardiance 10 mg daily. * Continue Amiodarone 200 mg BID. * Continue Plavix, Eliquis 2.5 BID monitor closely for bleeding given positive FOBT. * Consider GI consult for source of bleed. * Monitor daily weights, I/O, BNP trend. *Strict I/O, daily weights, fluid restriction <1.5 L/day. Trend BNP *Monitor for arrhythmias, replenished K more than 4.0, mg > 2 Renal/Electrolytes: * Monitor BMP daily. * Replete K to maintain >4.0, Mg >2.0, Phos to normal. * Phosphorus replacement: * If PO4 2.02.5 mg/dL: 15 mmol IV Na/K phosphate over 26h. * If PO4 1.02.0 mg/dL: 30 mmol IV over 46h. * If PO4 <1.0 mg/dL: 45 mmol IV over 6h. * PO option if stable: K-Phos Neutral 250 mg tablet (8 mmol phosphate) PO TIDQID. Nephrology follow-up appreciated. Other: * Recommend discontinuation of PICC line due to DVT. * Arrange outpatient cardiology follow-up in 12 weeks post-discharge. * Cardiac diet, strict medication adherence, alcohol abstinence. WE are signing off on this patient thank you for the consult. Prophylaxis: * DVT: Eliquis * GI: IV PPI daily. * ICU bundle: head elevation, turning protocol, pressure sore prevention. Case discussed with Dr. Art. Case discussed in detail with the patient and his son and both agreed upon with the discussed plan. Plan discussed with: Patient, Son Dietary Evaluation Review Comments: 1. advance TF to Vital HP 55ml/hr providing 115g protwin, [id number] free water supporting pt's needs at 100% protein, 79% energy. 2. Reassess needs when Pt is off vent, and/or medically feasible for PO feedings. Expected Outcomes/Goals: maintain wt, avoid catablism Visit Coding Cardiology RES Date of Service: May 27, 2025 Billing Provider: GABY ART Sr., MD Cardiology Common Codes: [id number] HOSP CARE(AGNIESZKA Real RESIDENT May 27, 2025 11:25
[2025-05-27] MEDS: PANTOPRAZOLE 40 MG/10 ML VIAL INJ IV ONE (18:30)
[2025-05-27] MEDS: CIPROFLOXACIN HCL 500 MG TAB PO ONE (18:30)
--- NOTE | 2025-05-27 19:47 | DVHPNRES ---
Progress Note Date Seen: May 27, 2025 Resident Creating Document: DUARTE SPIVEY RESIDENT Has the PT tested + for MRSA If YES, has PT been informed?: No Medical Necessity Reason Pt with a Central, PICC or Fol: Yes The following are medically ne: PICC Line, Wong Catheter Reason for wong catheter: Strict I&O Subjective Review of Systems This is a 74-year-old male with past medical history of CHF on home O2 2 to 3L, diabetes mellitus, liver disease, hypertension, and hyperlipidemia who presented to [facility] ED with complaint of shortness of breaths. Patient reports that he has been experiencing worsening shortness of breaths with associated leg swelling and chest pressure since this morning. Patient was on 87% on 2L despite giving 2 DuoNeb treatments en route, placing him on a non- rebreather mask upon arrival. in the ED patient was hypoxic, increased work of breathing, desaturating on BiPAP and subsequently intubated. Patient was seen and examined in the ICU. status post extubation on 2 L oxygen through nasal cannula. alert oriented x3. Patient underwent left heart catheterization on 05/24/2025 and revealed RCA 90% stenosis, left circumflex 50%, lad mild diffuse plaque and mentioned the patient is not a good candidate of any invasive procedure right now and recommended medical therapy. Objective vital signs Vital Sign Date Time Temp Pulse Resp B/P (MAP) Pulse Ox O2 Delivery O2 Flow Rate FiO2 05/27/25 17:00 98.0 74 17 145/85 (105) 98 98.0 05/27/25 08:00 Nasal Cannula* 2 28 Total Intake and Output 05/26/25 05/26/25 05/27/25 15:00 23:00 07:00 Intake Total 100 ml 960 ml 100 ml Output Total 800 ml Balance 100 ml 160 ml 100 ml medications Current Medications Medications Dose Ordered Sig/Mikki Route Start Time Stop Time Status Last Admin Dose Admin Sodium Chloride 10 ml QSHIFT@10,22 IV 05/14/25 22:00 05/26/25 21:22 10 ML Dextrose 50 ml UD PRN IV 05/15/25 13:15 Cancel Dextrose 50 ml UD PRN IV 05/15/25 16:45 Hydralazine HCl 10 mg Q6HP PRN IV 05/19/25 12:00 05/26/25 13:30 10 MG Diagnostic Test (Pha) 1 strip Q6HR 05/21/25 18:00 05/27/25 18:30 1 STRIP Insulin Human Regular Q6HR SC 05/21/25 18:00 05/27/25 18:40 2 UNITS Sacubitril/ Valsartan 1 tab BID PO 05/22/25 22:00 05/27/25 11:08 1 TAB Amiodarone HCl 200 mg Q12HR PO 05/23/25 09:45 05/27/25 11:06 200 MG Potassium Chloride 100 ml @ 50 mls/hr Q2H IV 05/23/25 19:15 05/24/25 03:14 UNV Clopidogrel Bisulfate 75 mg DAILY PO 05/25/25 10:00 05/27/25 11:04 75 MG Spironolactone 50 mg BID PO 05/26/25 10:00 05/27/25 11:07 50 MG Acetaminophen 650 mg Q8HP PRN PO 05/26/25 21:00 05/26/25 21:21 650 MG Empaglifozin 10 mg DAILY PO 05/27/25 10:00 05/27/25 11:05 10 MG Apixaban 2.5 mg BID PO 05/27/25 10:00 05/27/25 11:04 2.5 MG Pantoprazole Sodium 40 mg DAILY IV 05/28/25 10:00 Metoprolol Succinate 50 mg DAILY PO 05/27/25 11:15 Ciprofloxacin 500 mg Q12HR PO 05/27/25 22:00 Examination Physical examination: General Appearance: Alert, Oriented X3, Cooperative, on nasal canula 2L HEENT: Atraumatic, PERRLA, EOMI, Mucous membrane moist/pink Respiratory: Bilateral vesicular breath sound with rales on right lower lobe Cardiovascular: Regular rate, Normal S1, Normal S2, No murmurs, no chest wall tenderness Abdominal: Normal bowel sounds, Soft, No tenderness, No hepatospenomegaly, No masses Extremities: No clubbing, No cyanosis, No edema, Normal pulses, No tenderness/swelling Skin: No rashes, No breakdown, No significant lesion Neuro: Grossly intact cranial nerves Cranial nerves 3-12 NL, Reflexes 2+ Psych/Mental Status: Could not be assessed. laboratory and microbiology Laboratory Tests 05/27/25 05:35 Test 05/27/25 05:35 Range/Units Serum Glucose 94 74-106 mg/dL Microbiology Date/Time Source Procedure Growth Status 05/18/25 10:35 Sputum Gram Stain - Final Complete 05/18/25 10:35 Respiratory Culture - Final Pseudomonas aeruginosa Complete 05/14/25 08:24 Voided Urine Urine Culture - Final Complete 05/14/25 02:46 Nose MRSA Screen - Final Complete 05/13/25 17:25 Blood Blood Culture - Final NO GROWTH AFTER 5 DAYS OF INCUBATION. 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 CARDIOVASCULAR: Acute on chronic decompensated systolic heart failure likely secondary to ischemic cardiomyopathy cardiogenic shock/ septic shock secondary to above NSTEMI type 1 , status post left heart catheterization Coronary artery disease Paroxysmal atrial fibrillation with RVR and secondary hypercoagulable state -chest x-ray demonstrated right-sided pneumonia with pulmonary vascular congestion -BNP> 5000 and trops were mildly elevated and flat - Echo on 02/10 demonstrated EF 10% with end-stage dilated heart failure, RVSP 38 mm Hg - status post extubation, off sedation and pressors - Amiodarone 200 mg p.o. b.i.d. - continue GDM T with metoprolol, Entresto and spironolactone - continue Eliquis 2.5 mg b.i.d. - continue atorvastatin 40 mg at HS PULMONARY: Acute hypoxic respiratory failure secondary to exacerbation of CHF/ pneumonia right-sided Gram-positive versus Gram-negative community acquired pneumonia possible aspiration pneumonia Rule out lung malignancy - Right lower lobe atelectasis due to mucous plugging Mucous plugging from L6-L10 and R1-R10 RML BAL performed . - chest x-ray demonstrated right-sided pneumonia with pulmonary vascular congestion - respiratory culture on 05/18 revealed Pseudomonas - ciprofloxacin 500 mg p.o. b.i.d. 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 - Lactulose 30 mL b.i.d. GENITOURINARY: Acute kidney injury likely secondary to shock / VMN improved - strict I&O - monitor BMP ENDOCRINE: Hypoglycemia resolved - monitor blood sugar closely METABOLIC: Moderate protein calorie malnutrition Hypernatremia Hypokalemia HEME: Acute DVT of right upper arm Chronic microcytic hypochromic anemia likely due to anemia of chronic disease Thrombocytopenia likely due to cirrhosis - Doppler venous scan of the upper extremity showed deep vein thrombosis of right axillary and subclavian vein and thrombosis of left basilic vein - Eliquis 2.5 mg p.o. b.i.d. INFECTIOUS DISEASE: Right-sided Gram-positive/ Gram-negative community acquired pneumonia Possible aspiration pneumonia - chest x-ray demonstrated right-sided pneumonia with pulmonary vascular congestion - Preliminary blood cultures were unremarkable and MRSA negative - sputum culture on 05/18 showed Pseudomonas - ciprofloxacin 500 mg p.o. b.i.d. DIET: Cardiac diet DVT prophylax:Eloquis GI prophylaxis:Protonix Bowel regimen:Lactulose Code status: modified DNR, no chest compression LINES/DRAINS/ACCESS: Rt upper arm PICC line on 05/14 ETT: Intubated on 05/13/25 IV access: Rt upper arm PICC line on 05/14, rt femoral arterial line 05/15 Wong catheter: placed on 05/13/2025 DISPOSITION: Telemetry Goal of care and code status discussed with patient and the son for more than 41 minutes Case discussed with Dr. Hopkins Plan discussed with: Son, Other ([id number], RN) My Orders My Orders Orders - DUARTE SPIVEY RESIDENT Procedure Category Date Status Time Pantoprazole PHA 05/28/25 In Process (Protonix) 10:00 Cardiac DIET 05/27/25 Transmitted Diet-2gna,Lofat,Lochol Lunch * Licensed Funeral Director CONS 05/27/25 Transmitted Consult * Licensed Funeral Director CONS 05/27/25 Transmitted Consult Communication Order ORDERS 05/27/25 Transmitted 13:40 Ciprofloxacin Tablet PHA 05/27/25 In Process (Cipro Tablet) 22:00 Dietary Evaluation Review Comments: 1. advance TF to Vital HP 55ml/hr providing 115g protwin, [id number] free water supporting pt's needs at 100% protein, 79% energy. 2. Reassess needs when Pt is off vent, and/or medically feasible for PO feedings. Expected Outcomes/Goals: maintain wt, avoid catablism Date of Service: May 27, 2025 Billing Provider: NÉO HOPKINS MD Common Visit Codes: [id number] INP/OBS CARE(HIGH) Secondary Visit Codes: [id number] CARE PLAN 30 MINUTES DUARTE SPIVEY RESIDENT May 27, 2025 19:47 NOÉ HOPKINS MD May 28, 2025 15:46
[2025-05-27] MEDS: ATORVASTATIN 20 MG TAB PO SCH (21:25)
[2025-05-27] MEDS: CIPROFLOXACIN HCL 500 MG TAB PO SCH (21:26)
--- NOTE | 2025-05-27 23:44 | DVHPN2 ---
Progress Note - Dictate Date Seen: May 27, 2025 Has the PT tested + for MRSA If YES, has PT been informed?: No Medical Necessity Reason Pt with a Central, PICC or Fol: Yes The following are medically ne: PICC Line, Wong Catheter Reason for wong catheter: Strict I&O Subjective Mr. Mayberry is a 74 years old right-handed gentleman with a history of hypertension, diabetes, dyslipidemia, congestive heart failure on home oxygen, liver disease, he was brought to the [facility] on 05/13/2026 with a chief complaint of shortness of breath, in the hospital, the patient was found to have acute respiratory failure, combined metabolic respiratory acidosis, and was intubated in the emergency room. I have seen and examined the patient, I have talked to his nurse, sitter he is awake, oriented to person, place, he knows the month, but give run year, good social skills Urinalysis, 05/13/2025: WBC: 7, urine leukocyte esterase: Negative ABG, 05/14/2025: Hypoxia, metabolic acidosis, 05/15/2025: Metabolic acidosis WBC/HB/PLT/MCV, 05/14/2025: 3.4/11.1/107/69.6, 05/15/25: 15.4/13.9/171/66.3 PT/INR/ABG, 05/14/2025: 12.2/1.71/35.8 Na, 05/16/2025: 144, 147, 05/17/2025: 148, 152, 05/19/2025: 155, 154, 05/21/2025: 145. 05/22/25: 156, 05/23/25: 155, 05/24/2025: 150, 140, 05/25/25: 144 BUN/CR, 05/14/2025: 21/1.69 GFR, 05/14/2025: 42 Lactic acid, 05/13/2025: 6.6, 8.3, 9.8 Glucose, 05/14/2025: 44, 40, 136, 116, 106 TBI/AST/ALT/AP, 05/14/2025: 2.5/84/52/209, : 149/170/95/158 Ammonia, 05/14/2025: 54 Vitamin B12, 01/24/2025: 941, 05/14/25: 776 Folic acid, 01/25/2025: 8.94, 05/14/25:9.29 TSH, 01/24/2025: 2.6, 05/14/2025: 4.19 Chest x-ray, 05/14/2025: 1. Adequately positioned endotracheal and enteric tubes new from prior exam. 2. Similar diffuse right and mild left basilar airspace disease. CT head, 05/14/2025: 1. No acute intracranial abnormality. 2. Right ocular lens prosthesis. 3. Mild periventricular and subcortical white matter disease likely related to sequelae of chronic microvascular ischemic changes although other etiologies are not excluded vital signs Vital Sign Date Time Temp Pulse Resp B/P (MAP) Pulse Ox O2 Delivery O2 Flow Rate FiO2 05/27/25 21:00 98.1 78 16 125/76 (92) 100 98.1 05/27/25 20:00 Room Air* 0 21 Total Intake and Output 05/26/25 05/26/25 05/27/25 15:00 23:00 07:00 Intake Total 100 ml 960 ml 100 ml Output Total 800 ml Balance 100 ml 160 ml 100 ml medications Current Medications Medications Dose Ordered Sig/Mikki Route Start Time Stop Time Status Last Admin Dose Admin Sodium Chloride 10 ml QSHIFT@10,22 IV 05/14/25 22:00 05/27/25 21:35 10 ML Dextrose 50 ml UD PRN IV 05/15/25 13:15 Cancel Dextrose 50 ml UD PRN IV 05/15/25 16:45 Hydralazine HCl 10 mg Q6HP PRN IV 05/19/25 12:00 05/26/25 13:30 10 MG Diagnostic Test (Pha) 1 strip Q6HR 05/21/25 18:00 05/27/25 18:30 1 STRIP Insulin Human Regular Q6HR SC 05/21/25 18:00 05/27/25 18:40 2 UNITS Sacubitril/ Valsartan 1 tab BID PO 05/22/25 22:00 05/27/25 21:25 1 TAB Amiodarone HCl 200 mg Q12HR PO 05/23/25 09:45 05/27/25 21:26 200 MG Potassium Chloride 100 ml @ 50 mls/hr Q2H IV 05/23/25 19:15 05/24/25 03:14 UNV Clopidogrel Bisulfate 75 mg DAILY PO 05/25/25 10:00 05/27/25 11:04 75 MG Spironolactone 50 mg BID PO 05/26/25 10:00 05/27/25 21:26 50 MG Acetaminophen 650 mg Q8HP PRN PO 05/26/25 21:00 05/27/25 21:29 650 MG Empaglifozin 10 mg DAILY PO 05/27/25 10:00 05/27/25 11:05 10 MG Apixaban 2.5 mg BID PO 05/27/25 10:00 05/27/25 21:26 2.5 MG Pantoprazole Sodium 40 mg DAILY IV 05/28/25 10:00 Metoprolol Succinate 50 mg DAILY PO 05/27/25 11:15 Ciprofloxacin 500 mg Q12HR PO 05/27/25 22:00 05/27/25 21:26 500 MG Atorvastatin Calcium 40 mg HS PO 05/27/25 22:00 05/27/25 21:25 40 MG objective The patient is well-nourished and well-developed with no distress. MENTAL STATUS: Subjective CRANIAL NERVES: Pupils are round with the right pupil is bigger and nonreactive, left pupil is reactive. He has conjugated eye movement. No signs of facial weakness., sensorimotor examination is normal in bilateral trigeminal distribution SENSATION: Find pinprick and light touch MOTOR: Normal tone in the upper and lower extremity. Normal muscle bulk. No fasciculations. He moves the arms and legs REFLEXES: Deep tendon reflexes are symmetrical. CEREBELLAR/COORDINATION: No ataxia GAIT/STATION: deferred. laboratory and microbiology Laboratory Tests 05/27/25 05:35 Test 05/27/25 05:35 Range/Units Serum Glucose 94 74-106 mg/dL Problem List Unequal pupil size, secondary to right prosthetic eye Coma resolved Hypoxic encephalopathy Metabolic encephalopathy Hepatic encephalopathy Hypernatremia Respiratory acidosis, resolved Metabolic acidosis, resolved Respiratory failure, improving Cognitive dysfunction/mild cognitive impairment/mild dementia ? Alcohol related dementia/Korsakoff disease ? Alzheimer's dementia Liver failure ? Secondary to alcoholism ? Secondary to congestive heart failure Kidney failure Pneumonia Assessment/Plan Monitoring Supportive treatment Telemetry. Oxygen IV antibiotics Free water Thiamine supplementation Cardiology on case Pulmonology on case Address cognitive dysfunction when he is mentally better More recommendation per clinical course This medical document was created using an electronic medical record system with [employer]zee dictation system. Although this document has been carefully reviewed, there may still be some phonetic and typographical errors. These areas are purely typographical due to imperfections of the software programs, and do not reflect any compromise in the patient's medical care Prognosis poor Dietary Evaluation Review Comments: 1. advance TF to Vital HP 55ml/hr providing 115g protwin, [id number] free water supporting pt's needs at 100% protein, 79% energy. 2. Reassess needs when Pt is off vent, and/or medically feasible for PO feedings. Expected Outcomes/Goals: maintain wt, avoid catablism Plan discussed with: Other IZZY BOOKER MD May 27, 2025 23:44
[2025-05-28] VITALS (7 sets, daily range): BP systolic 120–148; BP diastolic 76–99; PULSE 75–95; RESP 17–20; TEMP 97.4–98.2; O2SAT 94–99
[2025-05-28] MEDS: MELATONIN 5 MG TAB PO ONE (00:40)
[2025-05-28 06:29] LABS: Mean Corpuscular Hemoglobin 21.5 pg (28.0-32.0); Nucleated Red Blood Cells % 0.0 %
[2025-05-28 06:34] LABS: Hematocrit 25.9 % (41.0-53.0); Hemoglobin 8.4 g/dL (13.5-17.5); Mean Corpuscular Volume 65.9 fL (80.0-100.0)
[2025-05-28 06:36] LABS: Anion Gap 7 (5-15); Carbon Dioxide 28 mmol/L (20-31); Chloride 104 mmol/L (98-107); Sodium 139 mmol/L (136-145)
[2025-05-28 06:42] LABS: BUN/Creatinine Ratio 7.8 (10.0-20.0); Glucose 100 mg/dL (74-106)
[2025-05-28 06:47] LABS: Blood Urea Nitrogen 5 mg/dL (9-23); Calcium 8.2 mg/dL (8.7-10.4); Potassium 3.3 mmol/L (3.5-5.1)
[2025-05-28] MEDS: PANTOPRAZOLE 40 MG/10 ML VIAL INJ IV SCH ×2 (09:45→10:00)
[2025-05-28] MEDS: THIAMINE HCL 100 MG TAB PO SCH (10:27)
[2025-05-28] MEDS: POTASSIUM EFFERVESENT TAB 25 MEQ PO ONE (10:27)
--- NOTE | 2025-05-28 10:52 | DVH ---
EXAM: XY CHEST PORTABLE Indication: chf Technique: Single frontal view of the chest was obtained Comparison: XY CHEST PORTABLE on DOS: 05/21/25, XY CHEST XRAY 1 VIEW on DOS: 05/20/25, XY CHEST PORTABLE on DOS: 05/19/25, XY CHEST XRAY 1 VIEW on DOS: 05/18/25, XY CHEST PORTABLE on DOS: 05/18/25 FINDINGS: Lines and Tubes: None Lungs: Small bilateral pleural effusions. Bibasilar opacities. No pneumothorax. Cardiomediastinal contours: Bones: No acute osseous abnormality. IMPRESSION: Small bilateral pleural effusions. Bibasilar opacities. Cardiomegaly.
--- NOTE | 2025-05-28 19:29 | DVHPNRES ---
Progress Note Date Seen: May 28, 2025 Resident Creating Document: DUARTE SPIVEY RESIDENT Has the PT tested + for MRSA If YES, has PT been informed?: No Medical Necessity Reason Pt with a Central, PICC or Fol: Yes The following are medically ne: PICC Line, Wong Catheter Reason for wong catheter: Strict I&O Subjective Review of Systems This is a 74-year-old male with past medical history of CHF on home O2 2 to 3L, diabetes mellitus, liver disease, hypertension, and hyperlipidemia who presented to [facility] ED with complaint of shortness of breaths. Patient reports that he has been experiencing worsening shortness of breaths with associated leg swelling and chest pressure since this morning. Patient was on 87% on 2L despite giving 2 DuoNeb treatments en route, placing him on a non- rebreather mask upon arrival. in the ED patient was hypoxic, increased work of breathing, desaturating on BiPAP and subsequently intubated. Patient was seen and examined in the ICU. status post extubation on 2 L oxygen through nasal cannula. alert oriented x3. Patient underwent left heart catheterization on 05/24/2025 and revealed RCA 90% stenosis, left circumflex 50%, lad mild diffuse plaque and mentioned the patient is not a good candidate of any invasive procedure right now and recommended medical therapy. Stool pccult blood positive and hemoglobin dropped to 8.4. Hold eloquis. plavix, clear liquid diet and consulted GI. Objective vital signs Vital Sign Date Time Temp Pulse Resp B/P (MAP) Pulse Ox O2 Delivery O2 Flow Rate FiO2 05/28/25 17:00 98.2 77 18 145/96 (112) 98 98.2 05/28/25 08:00 Nasal Cannula* 2 28 Total Intake and Output 05/27/25 05/27/25 05/28/25 15:00 23:00 07:00 Intake Total 600 ml Output Total 800 ml Balance -200 ml medications Current Medications Medications Dose Ordered Sig/Mikki Route Start Time Stop Time Status Last Admin Dose Admin Sodium Chloride 10 ml QSHIFT@10,22 IV 05/14/25 22:00 05/28/25 09:47 10 ML Dextrose 50 ml UD PRN IV 05/15/25 13:15 Cancel Dextrose 50 ml UD PRN IV 05/15/25 16:45 Hydralazine HCl 10 mg Q6HP PRN IV 05/19/25 12:00 05/26/25 13:30 10 MG Diagnostic Test (Pha) 1 strip Q6HR 05/21/25 18:00 05/28/25 17:56 1 STRIP Insulin Human Regular Q6HR SC 05/21/25 18:00 05/27/25 18:40 2 UNITS Sacubitril/ Valsartan 1 tab BID PO 05/22/25 22:00 05/28/25 09:46 1 TAB Amiodarone HCl 200 mg Q12HR PO 05/23/25 09:45 05/28/25 09:46 200 MG Potassium Chloride 100 ml @ 50 mls/hr Q2H IV 05/23/25 19:15 05/24/25 03:14 UNV Spironolactone 50 mg BID PO 05/26/25 10:00 05/28/25 09:46 50 MG Acetaminophen 650 mg Q8HP PRN PO 05/26/25 21:00 05/27/25 21:29 650 MG Empaglifozin 10 mg DAILY PO 05/27/25 10:00 05/28/25 09:46 10 MG Metoprolol Succinate 50 mg DAILY PO 05/27/25 11:15 05/28/25 09:47 50 MG Ciprofloxacin 500 mg Q12HR PO 05/27/25 22:00 05/28/25 09:46 500 MG Atorvastatin Calcium 40 mg HS PO 05/27/25 22:00 05/27/25 21:25 40 MG Thiamine HCl 100 mg DAILY PO 05/28/25 10:00 05/28/25 10:27 100 MG Pantoprazole Sodium 40 mg BID IV 05/28/25 10:00 Examination Physical examination: General Appearance: Alert, Oriented X3, Cooperative, on nasal canula 2L HEENT: Atraumatic, PERRLA, EOMI, Mucous membrane moist/pink Respiratory: Bilateral vesicular breath sound with rales on right lower lobe Cardiovascular: Regular rate, Normal S1, Normal S2, No murmurs, no chest wall tenderness Abdominal: Normal bowel sounds, Soft, No tenderness, No hepatospenomegaly, No masses Extremities: No clubbing, No cyanosis, No edema, Normal pulses, No tenderness/swelling Skin: No rashes, No breakdown, No significant lesion Neuro: Grossly intact cranial nerves Cranial nerves 3-12 NL, Reflexes 2+ Psych/Mental Status: Could not be assessed laboratory and microbiology Laboratory Tests 05/28/25 05:41 Test 05/28/25 05:41 Range/Units Serum Glucose 100 74-106 mg/dL Microbiology Date/Time Source Procedure Growth Status 05/18/25 10:35 Sputum Gram Stain - Final Complete 05/18/25 10:35 Respiratory Culture - Final Pseudomonas aeruginosa Complete 05/14/25 08:24 Voided Urine Urine Culture - Final Complete 05/14/25 02:46 Nose MRSA Screen - Final Complete 05/13/25 17:25 Blood Blood Culture - Final NO GROWTH AFTER 5 DAYS OF INCUBATION. 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 CARDIOVASCULAR: Acute on chronic decompensated systolic heart failure likely secondary to ischemic cardiomyopathy cardiogenic shock/ septic shock secondary to above NSTEMI type 1 , status post left heart catheterization Coronary artery disease Paroxysmal atrial fibrillation with RVR and secondary hypercoagulable state -chest x-ray demonstrated right-sided pneumonia with pulmonary vascular congestion -BNP> 5000 and trops were mildly elevated and flat - Echo on 02/10 demonstrated EF 10% with end-stage dilated heart failure, RVSP 38 mm Hg - status post extubation, off sedation and pressors - Amiodarone 200 mg p.o. b.i.d. - continue GDM T with metoprolol, Entresto and spironolactone - continue atorvastatin 40 mg at HS PULMONARY: Acute hypoxic respiratory failure secondary to exacerbation of CHF/ pneumonia right-sided Gram-positive versus Gram-negative community acquired pneumonia possible aspiration pneumonia Rule out lung malignancy - Right lower lobe atelectasis due to mucous plugging Mucous plugging from L6-L10 and R1-R10 RML BAL performed . - chest x-ray demonstrated right-sided pneumonia with pulmonary vascular congestion - respiratory culture on 05/18 revealed Pseudomonas - ciprofloxacin 500 mg p.o. b.i.d. 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 - Lactulose 30 mL b.i.d. - Clear liquid diet - IV protonix 40 mg bid - Consulted GI - Monitor H&H GENITOURINARY: Acute kidney injury likely secondary to shock / VMN improved - strict I&O - monitor BMP ENDOCRINE: Hypoglycemia resolved - monitor blood sugar closely METABOLIC: Moderate protein calorie malnutrition Hypernatremia Hypokalemia HEME: Acute on chronic anaemia due to GI bleeding Acute DVT of right upper arm Chronic microcytic hypochromic anemia likely due to anemia of chronic disease Thrombocytopenia likely due to cirrhosis - Doppler venous scan of the upper extremity showed deep vein thrombosis of right axillary and subclavian vein and thrombosis of left basilic vein - Hold eloquis due to GI bleeding. INFECTIOUS DISEASE: Right-sided Gram-positive/ Gram-negative community acquired pneumonia Possible aspiration pneumonia - chest x-ray demonstrated right-sided pneumonia with pulmonary vascular congestion - Preliminary blood cultures were unremarkable and MRSA negative - sputum culture on 05/18 showed Pseudomonas - ciprofloxacin 500 mg p.o. b.i.d. DIET: Clear liquid diet DVT prophylax: Hold Eloquis GI prophylaxis:Protonix Bowel regimen:Lactulose Code status: modified DNR, no chest compression LINES/DRAINS/ACCESS: Rt upper arm PICC line on 05/14 ETT: Intubated on 05/13/25 IV access: Rt upper arm PICC line on 05/14, rt femoral arterial line 05/15 Wong catheter: placed on 05/13/2025 DISPOSITION: Telemetry Goal of care and code status discussed with patient and the son for more than 41 minutes Case discussed with Dr. Hopkins Plan discussed with: Patient, Son (RN) My Orders My Orders Orders - DUARTE SPIVEY RESIDENT Procedure Category Date Status Time Atorvastatin (Lipitor) PHA 05/27/25 In Process 22:00 Thiamine Tab PHA 05/28/25 In Process 10:00 Chest Portable XY 05/28/25 Resulted 09:58 Pantoprazole PHA 05/28/25 In Process (Protonix) 10:00 Clear Liq Diet DIET 05/28/25 Transmitted Dinner * Gi Dvh Stitchdown Thread Laster CONS 05/28/25 Transmitted 16:25 Dietary Evaluation Review Comments: 1. advance TF to Vital HP 55ml/hr providing 115g protwin, [id number] free water supporting pt's needs at 100% protein, 79% energy. 2. Reassess needs when Pt is off vent, and/or medically feasible for PO feedings. Expected Outcomes/Goals: maintain wt, avoid catablism Date of Service: May 28, 2025 Billing Provider: NOÉ HOPKINS MD Common Visit Codes: [id number] INP/OBS CARE(HIGH) Secondary Visit Codes: [id number] CARE PLAN 30 MINUTES DUARTE SPIVEY RESIDENT May 28, 2025 19:28 NOÉ HOPKINS MD May 29, 2025 15:39
[2025-05-29] VITALS (7 sets, daily range): BP systolic 141–151; BP diastolic 74–85; PULSE 73–82; RESP 16–20; TEMP 97.1–98.1; O2SAT 96–100
[2025-05-29 09:26] LABS: Hematocrit 26.7 % (41.0-53.0); Hemoglobin 8.7 g/dL (13.5-17.5); Mean Corpuscular Hemoglobin 21.3 pg (28.0-32.0); Mean Corpuscular Volume 65.6 fL (80.0-100.0); Nucleated Red Blood Cells % 0.0 %
[2025-05-29 09:39] LABS: Anion Gap 8 (5-15); Carbon Dioxide 28 mmol/L (20-31); Chloride 104 mmol/L (98-107); Potassium 4.1 mmol/L (3.5-5.1); Sodium 140 mmol/L (136-145)
[2025-05-29 09:45] LABS: BUN/Creatinine Ratio 10.6 (10.0-20.0); Calcium 8.5 mg/dL (8.7-10.4)
[2025-05-29 09:56] LABS: Blood Urea Nitrogen 7 mg/dL (9-23); Glucose 106 mg/dL (74-106)
--- NOTE | 2025-05-29 14:29 | DVHINCON2 ---
GI Consult Consult Note GI consult note Date of Consultation: 05/29/2025 Chief Complaint: GI bleed Referring Physician: Dr. Bone H&P: 74-year-old male who has been hospitalized since 05/13/2025 and admitted to ICU presented with complains of shortness of breath. Patient has been extubated at this time, and able to answer questions. Patient also has family at bedside that is providing history. Patient is status post left heart catheterization on 05/24/2025 and was recommended to have conservative treatment with no invasive procedures at this time and to manage medically. Patient had drop in hemoglobin and stool occult is positive. Patient has mild periumbilical pain but thinks that this is hunger pains and would like to eat more food. No nausea. BM one day ago. No melena or red blood in stool. No EGD or colonoscopy in past Past Medical History: CHF on home O2 2 to 3L, diabetes mellitus, liver disease, hypertension, and hyperlipidemia Past Surgical History: PTCA Social History: NO smoking, drinking ETOH and use of illegal drugs. Family History: Noncontributory Review of Systems: Constitutional: no fever, chill, weight loss HEENT: no eye pain, no hearing loss, no oral lesion, no scleral icterus Heart: no chest pain, no chest pressure Lung: no cough, no dyspnea with exertion Abdomen: see HPI Physical exam: General: NAD, AAOX3 Chest: lung [place] clear to auscultation Heart: RRR, no murmur Abdomen: non-distended, no tenderness to palpation, +BS Labs: Test 05/28/25 05:41 Range/Units Serum Glucose 100 74-106 mg/dL Microbiology Date/Time Source Procedure Growth Status 05/18/25 10:35 Sputum Gram Stain - Final Complete 05/18/25 10:35 Respiratory Culture - Final Pseudomonas aeruginosa Complete 05/14/25 08:24 Voided Urine Urine Culture - Final Complete 05/14/25 02:46 Nose MRSA Screen - Final Complete 05/13/25 17:25 Blood Blood Culture - Final NO GROWTH AFTER 5 DAYS OF INCUBATION. Complete Labs and/or images reviewed: Labs reviewed by me, Image(s) reviewed by me Imaging: CT chest abdomen and pelvis 05/18/2025 IMPRESSION: Patchy right foot and left lower lobe opacities, favor infection / pneumonia. 3 vessel coronary artery calcifications. Pulmonary arterial hypertension. Trace right pleural effusion. Mild colonic diverticulosis. Extensive body wall edema, particularly at the visualized lower extremities. Assessment: Severe anemia Possible GI bleed History of hepatocellular stasis status post EHL with biliary stenting Alcoholic liver cirrhosis History of hepatitis-C Pneumonia Plan: Discussed with Dr. Leon Monitor labs, transfuse if hemoglobin less than seven Protonix Conservative management recommended at this time Possible plan for outpatient GI procedures as needed when patient is cleared by Cardiology Full liquid diet advance as tolerated We will continue to monitor patient Plan discussed with patient, family at bedside and RN Thank you for this consult Date of Service: May 29, 2025 Billing Provider: PAPO CALL Common Visit Codes: CONSULT ONLY Consultation Codes: [id number] CONSULT <60MIN PAPO CALL May 29, 2025 14:29
--- NOTE | 2025-05-29 18:26 | DVHPNRES ---
Progress Note Date Seen: May 29, 2025 Resident Creating Document: DUARTE SPIVEY RESIDENT Has the PT tested + for MRSA If YES, has PT been informed?: No Medical Necessity Reason Pt with a Central, PICC or Fol: Yes The following are medically ne: PICC Line, Wong Catheter Reason for wong catheter: Strict I&O Subjective Review of Systems This is a 74-year-old male with past medical history of CHF on home O2 2 to 3L, diabetes mellitus, liver disease, hypertension, and hyperlipidemia who presented to [facility] ED with complaint of shortness of breaths. Patient reports that he has been experiencing worsening shortness of breaths with associated leg swelling and chest pressure since this morning. Patient was on 87% on 2L despite giving 2 DuoNeb treatments en route, placing him on a non- rebreather mask upon arrival. in the ED patient was hypoxic, increased work of breathing, desaturating on BiPAP and subsequently intubated. Patient was seen and examined in the ICU. status post extubation on 2 L oxygen through nasal cannula. alert oriented x3. Patient underwent left heart catheterization on 05/24/2025 and revealed RCA 90% stenosis, left circumflex 50%, lad mild diffuse plaque and mentioned the patient is not a good candidate of any invasive procedure right now and recommended medical therapy. Stool pccult blood positive and H&H is stable at 8.7/26.7. Hold eloquis. plavix, clear liquid diet and GI recommended conservative management, outpatient GI procedure as needed when patient is cleared by Cardiology . Objective vital signs Vital Sign Date Time Temp Pulse Resp B/P (MAP) Pulse Ox O2 Delivery O2 Flow Rate FiO2 05/29/25 16:56 98.1 79 18 142/74 (96) 97 98.1 05/29/25 07:41 Nasal Cannula* 2 28 Total Intake and Output 05/28/25 05/28/25 05/29/25 15:00 23:00 07:00 Intake Total 180 ml 1410 ml 505 ml Output Total 1125 ml 450 ml Balance 180 ml 285 ml 55 ml medications Current Medications Medications Dose Ordered Sig/Mikki Route Start Time Stop Time Status Last Admin Dose Admin Sodium Chloride 10 ml QSHIFT@10,22 IV 05/14/25 22:00 05/29/25 09:14 10 ML Dextrose 50 ml UD PRN IV 05/15/25 13:15 Cancel Dextrose 50 ml UD PRN IV 05/15/25 16:45 Hydralazine HCl 10 mg Q6HP PRN IV 05/19/25 12:00 05/29/25 15:07 10 MG Diagnostic Test (Pha) 1 strip Q6HR 05/21/25 18:00 05/29/25 17:45 1 STRIP Insulin Human Regular Q6HR SC 05/21/25 18:00 05/27/25 18:40 2 UNITS Sacubitril/ Valsartan 1 tab BID PO 05/22/25 22:00 05/29/25 09:14 1 TAB Amiodarone HCl 200 mg Q12HR PO 05/23/25 09:45 05/29/25 09:13 200 MG Potassium Chloride 100 ml @ 50 mls/hr Q2H IV 05/23/25 19:15 05/24/25 03:14 UNV Spironolactone 50 mg BID PO 05/26/25 10:00 05/29/25 09:14 50 MG Acetaminophen 650 mg Q8HP PRN PO 05/26/25 21:00 05/29/25 10:13 650 MG Empaglifozin 10 mg DAILY PO 05/27/25 10:00 05/29/25 09:13 10 MG Metoprolol Succinate 50 mg DAILY PO 05/27/25 11:15 05/29/25 09:14 50 MG Ciprofloxacin 500 mg Q12HR PO 05/27/25 22:00 05/29/25 09:13 500 MG Atorvastatin Calcium 40 mg HS PO 05/27/25 22:00 05/28/25 21:31 40 MG Thiamine HCl 100 mg DAILY PO 05/28/25 10:00 05/29/25 09:13 100 MG Pantoprazole Sodium 40 mg BID IV 05/28/25 10:00 05/29/25 09:12 40 MG Examination Physical examination: General Appearance: Alert, Oriented X3, Cooperative, on nasal canula 2L HEENT: Atraumatic, PERRLA, EOMI, Mucous membrane moist/pink Respiratory: Bilateral vesicular breath sound with rales on right lower lobe Cardiovascular: Regular rate, Normal S1, Normal S2, No murmurs, no chest wall tenderness Abdominal: Normal bowel sounds, Soft, No tenderness, No hepatospenomegaly, No masses Extremities: No clubbing, No cyanosis, No edema, Normal pulses, No tenderness/swelling Skin: No rashes, No breakdown, No significant lesion Neuro: Grossly intact cranial nerves Cranial nerves 3-12 NL, Reflexes 2+ Psych/Mental Status: Could not be assessed laboratory and microbiology Laboratory Tests 05/29/25 09:10 Test 05/29/25 09:10 Range/Units Serum Glucose 106 74-106 mg/dL Microbiology Date/Time Source Procedure Growth Status 05/18/25 10:35 Sputum Gram Stain - Final Complete 05/18/25 10:35 Respiratory Culture - Final Pseudomonas aeruginosa Complete 05/14/25 08:24 Voided Urine Urine Culture - Final Complete 05/14/25 02:46 Nose MRSA Screen - Final Complete 05/13/25 17:25 Blood Blood Culture - Final NO GROWTH AFTER 5 DAYS OF INCUBATION. 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 CARDIOVASCULAR: Acute on chronic decompensated systolic heart failure likely secondary to ischemic cardiomyopathy cardiogenic shock/ septic shock secondary to above NSTEMI type 1 , status post left heart catheterization Coronary artery disease Paroxysmal atrial fibrillation with RVR and secondary hypercoagulable state -chest x-ray demonstrated right-sided pneumonia with pulmonary vascular congestion -BNP> 5000 and trops were mildly elevated and flat - Echo on 02/10 demonstrated EF 10% with end-stage dilated heart failure, RVSP 38 mm Hg - status post extubation, off sedation and pressors - Amiodarone 200 mg p.o. b.i.d. - continue GDM T with metoprolol, Entresto and spironolactone - continue atorvastatin 40 mg at HS PULMONARY: Acute hypoxic respiratory failure secondary to exacerbation of CHF/ pneumonia right-sided Gram-positive versus Gram-negative community acquired pneumonia possible aspiration pneumonia Rule out lung malignancy - Right lower lobe atelectasis due to mucous plugging Mucous plugging from L6-L10 and R1-R10 RML BAL performed . - chest x-ray demonstrated right-sided pneumonia with pulmonary vascular congestion - respiratory culture on 05/18 revealed Pseudomonas - ciprofloxacin 500 mg p.o. b.i.d. 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 - Lactulose 30 mL b.i.d. - Clear liquid diet - IV protonix 40 mg bid - GI recommended conservative management, outpatient GI procedure as needed when patient is cleared by Cardiology . - Monitor H&H GENITOURINARY: Acute kidney injury likely secondary to shock / VMN improved - strict I&O - monitor BMP ENDOCRINE: Hypoglycemia resolved - monitor blood sugar closely METABOLIC: Moderate protein calorie malnutrition Hypernatremia Hypokalemia HEME: Acute on chronic anaemia due to GI bleeding Acute DVT of right upper arm Chronic microcytic hypochromic anemia likely due to anemia of chronic disease Thrombocytopenia likely due to cirrhosis - Doppler venous scan of the upper extremity showed deep vein thrombosis of right axillary and subclavian vein and thrombosis of left basilic vein - Hold eloquis due to GI bleeding. INFECTIOUS DISEASE: Right-sided Gram-positive/ Gram-negative community acquired pneumonia Possible aspiration pneumonia - chest x-ray demonstrated right-sided pneumonia with pulmonary vascular congestion - Preliminary blood cultures were unremarkable and MRSA negative - sputum culture on 05/18 showed Pseudomonas - ciprofloxacin 500 mg p.o. b.i.d. DIET: Clear liquid diet DVT prophylax: Hold Eloquis GI prophylaxis:Protonix Bowel regimen:Lactulose Code status: modified DNR, no chest compression LINES/DRAINS/ACCESS: Rt upper arm PICC line on 05/14 IV access: Rt upper arm PICC line on 05/14. Wong catheter: placed on 05/13/2025 DISPOSITION: Telemetry Goal of care and code status discussed with patient and the son for more than 41 minutes Case discussed with Dr. Hopkins Plan discussed with: Son, Other (RN) My Orders My Orders Orders - DUARTE SPIVEY RESIDENT Procedure Category Date Status Time Discontinue Tele SOPHIA 05/29/25 In Process 08:27 Transfer Orders XFER 05/29/25 Transmitted 08:27 * Test Analyst CONS 05/29/25 Transmitted Consult Dietary Evaluation Review Comments: 1. advance TF to Vital HP 55ml/hr providing 115g protwin, [id number] free water supporting pt's needs at 100% protein, 79% energy. 2. Reassess needs when Pt is off vent, and/or medically feasible for PO feedings. Expected Outcomes/Goals: maintain wt, avoid catablism Date of Service: May 29, 2025 Billing Provider: NOÉ HOPKINS MD Common Visit Codes: [id number] INP/OBS CARE(HIGH) Secondary Visit Codes: [id number] CARE PLAN 30 MINUTES DUARTE SPIVEY RESIDENT May 29, 2025 18:26 NOÉ HOPKINS MD May 30, 2025 12:37
--- NOTE | 2025-05-29 23:38 | DVHPN2 ---
Progress Note - Dictate Date Seen: May 29, 2025 Has the PT tested + for MRSA If YES, has PT been informed?: No Medical Necessity Reason Pt with a Central, PICC or Fol: Yes The following are medically ne: PICC Line, Wong Catheter Reason for wong catheter: Strict I&O Subjective Mr. Mayberry is a 74 years old right-handed gentleman with a history of hypertension, diabetes, dyslipidemia, congestive heart failure on home oxygen, liver disease, he was brought to the [facility] on 05/13/2026 with a chief complaint of shortness of breath, in the hospital, the patient was found to have acute respiratory failure, combined metabolic respiratory acidosis, and was intubated in the emergency room. I have seen and examined the patient, I have talked to his nurse, sitter he is awake, oriented to person, place, he knows the year, good social skills His muscle power is reasonably fine but he needs a lot of support to stand Urinalysis, 05/13/2025: WBC: 7, urine leukocyte esterase: Negative ABG, 05/14/2025: Hypoxia, metabolic acidosis, 05/15/2025: Metabolic acidosis WBC/HB/PLT/MCV, 05/14/2025: 3.4/11.1/107/69.6, 05/15/25: 15.4/13.9/171/66.3 PT/INR/ABG, 05/14/2025: 12.2/1.71/35.8 Na, 05/16/2025: 144, 147, 05/17/2025: 148, 152, 05/19/2025: 155, 154, 05/21/2025: 145. 05/22/25: 156, 05/23/25: 155, 05/24/2025: 150, 140, 05/25/25: 144 BUN/CR, 05/14/2025: 21/1.69 GFR, 05/14/2025: 42 Lactic acid, 05/13/2025: 6.6, 8.3, 9.8 Glucose, 05/14/2025: 44, 40, 136, 116, 106 TBI/AST/ALT/AP, 05/14/2025: 2.5/84/52/209, : 149/170/95/158 Ammonia, 05/14/2025: 54 Vitamin B12, 01/24/2025: 941, 05/14/25: 776 Folic acid, 01/25/2025: 8.94, 05/14/25:9.29 TSH, 01/24/2025: 2.6, 05/14/2025: 4.19 Chest x-ray, 05/14/2025: 1. Adequately positioned endotracheal and enteric tubes new from prior exam. 2. Similar diffuse right and mild left basilar airspace disease. CT head, 05/14/2025: 1. No acute intracranial abnormality. 2. Right ocular lens prosthesis. 3. Mild periventricular and subcortical white matter disease likely related to sequelae of chronic microvascular ischemic changes although other etiologies are not excluded vital signs Vital Sign Date Time Temp Pulse Resp B/P (MAP) Pulse Ox O2 Delivery O2 Flow Rate FiO2 05/29/25 21:00 97.1 75 18 146/83 (104) 100 97.1 05/29/25 07:41 Nasal Cannula* 2 28 Total Intake and Output 05/28/25 05/28/25 05/29/25 15:00 23:00 07:00 Intake Total 180 ml 1410 ml 505 ml Output Total 1125 ml 450 ml Balance 180 ml 285 ml 55 ml medications Current Medications Medications Dose Ordered Sig/Mikki Route Start Time Stop Time Status Last Admin Dose Admin Sodium Chloride 10 ml QSHIFT@10,22 IV 05/14/25 22:00 05/29/25 21:10 10 ML Dextrose 50 ml UD PRN IV 05/15/25 13:15 Cancel Dextrose 50 ml UD PRN IV 05/15/25 16:45 Hydralazine HCl 10 mg Q6HP PRN IV 05/19/25 12:00 05/29/25 15:07 10 MG Diagnostic Test (Pha) 1 strip Q6HR 05/21/25 18:00 05/29/25 17:45 1 STRIP Insulin Human Regular Q6HR SC 05/21/25 18:00 05/27/25 18:40 2 UNITS Sacubitril/ Valsartan 1 tab BID PO 05/22/25 22:00 05/29/25 21:09 1 TAB Amiodarone HCl 200 mg Q12HR PO 05/23/25 09:45 05/29/25 21:09 200 MG Potassium Chloride 100 ml @ 50 mls/hr Q2H IV 05/23/25 19:15 05/24/25 03:14 UNV Spironolactone 50 mg BID PO 05/26/25 10:00 05/29/25 21:09 50 MG Acetaminophen 650 mg Q8HP PRN PO 05/26/25 21:00 05/29/25 10:13 650 MG Empaglifozin 10 mg DAILY PO 05/27/25 10:00 05/29/25 09:13 10 MG Metoprolol Succinate 50 mg DAILY PO 05/27/25 11:15 05/29/25 09:14 50 MG Ciprofloxacin 500 mg Q12HR PO 05/27/25 22:00 05/29/25 21:09 500 MG Atorvastatin Calcium 40 mg HS PO 05/27/25 22:00 05/29/25 21:09 40 MG Thiamine HCl 100 mg DAILY PO 05/28/25 10:00 05/29/25 09:13 100 MG Pantoprazole Sodium 40 mg BID IV 05/28/25 10:00 05/29/25 21:10 40 MG objective The patient is well-nourished and well-developed with no distress. MENTAL STATUS: Subjective CRANIAL NERVES: Pupils are round with the right pupil is bigger and nonreactive, left pupil is reactive. He has conjugated eye movement. No signs of facial weakness., sensorimotor examination is normal in bilateral trigeminal distribution SENSATION: Find pinprick and light touch MOTOR: Normal tone in the upper and lower extremity. Normal muscle bulk. No fasciculations. He moves the arms and legs REFLEXES: Deep tendon reflexes are symmetrical. CEREBELLAR/COORDINATION: No ataxia GAIT/STATION: deferred. laboratory and microbiology Laboratory Tests 05/29/25 09:10 Test 05/29/25 09:10 Range/Units Serum Glucose 106 74-106 mg/dL Problem List Unequal pupil size, secondary to right prosthetic eye Coma resolved Hypoxic encephalopathy Metabolic encephalopathy Hepatic encephalopathy Hypernatremia Respiratory acidosis, resolved Metabolic acidosis, resolved Respiratory failure, improving Cognitive dysfunction/mild cognitive impairment/mild dementia ? Alcohol related dementia/Korsakoff disease ? Alzheimer's dementia Liver failure ? Secondary to alcoholism ? Secondary to congestive heart failure Kidney failure Pneumonia Assessment/Plan Monitoring Supportive treatment Telemetry. Oxygen IV antibiotics Free water Thiamine supplementation Cardiology on case Pulmonology on case Address cognitive dysfunction when he is mentally better More recommendation per clinical course This medical document was created using an electronic medical record system with [employer] computerized dictation system. Although this document has been carefully reviewed, there may still be some phonetic and typographical errors. These areas are purely typographical due to imperfections of the software programs, and do not reflect any compromise in the patient's medical care Prognosis poor Dietary Evaluation Review Comments: 1. advance TF to Vital HP 55ml/hr providing 115g protwin, [id number] free water supporting pt's needs at 100% protein, 79% energy. 2. Reassess needs when Pt is off vent, and/or medically feasible for PO feedings. Expected Outcomes/Goals: maintain wt, avoid catablism Plan discussed with: Other IZZY BOOKER MD May 29, 2025 23:38
[2025-05-30] VITALS (8 sets, daily range): BP systolic 131–156; BP diastolic 75–89; PULSE 75–87; RESP 17–19; TEMP 98–98.7; O2SAT 95–100
[2025-05-30 07:03] LABS: Chloride 103 mmol/L (98-107); Potassium 3.9 mmol/L (3.5-5.1); Sodium 140 mmol/L (136-145)
[2025-05-30 07:04] LABS: Anion Gap 10 (5-15); Carbon Dioxide 27 mmol/L (20-31); Hematocrit 26.3 % (41.0-53.0); Hemoglobin 8.7 g/dL (13.5-17.5); Mean Corpuscular Hemoglobin 21.6 pg (28.0-32.0); Mean Corpuscular Volume 65.7 fL (80.0-100.0); Nucleated Red Blood Cells % 0.1 %
[2025-05-30 07:09] LABS: BUN/Creatinine Ratio 9.0 (10.0-20.0)
[2025-05-30 07:23] LABS: Blood Urea Nitrogen 6 mg/dL (9-23); Calcium 8.6 mg/dL (8.7-10.4); Glucose 72 mg/dL (74-106)
[2025-05-30] MEDS: PANTOPRAZOLE 40 MG/10 ML VIAL INJ IV SCH (09:07)
--- NOTE | 2025-05-30 13:47 | DVHPN2 ---
Subjective Patient is still has mild periumbilical pain No nausea vomiting No bowel movement today No red blood rectally Reviewed: Care Plan Changes from previous H/P or p: No Changes General: Per HPI Eyes: No Pain, No Vision change, No Conjunctivae inflammation, No Eyelid inflammation, No Other, No Redness ENT: No Ear pain, No Ear discharge, No Nose pain, No Nose discharge, No Nose congestion, No Mouth pain, No Mouth swelling, No Throat pain, No Throat swelling, No Other Cardiovascular: No Chest Pain, No Palpitations, No Orthopnea, No Paroxysmal Noc. Dyspnea, No Edema, No Lt Headedness, No Other Respiratory: No Cough, No Dry; Shortness of breath, SOB with excertion; No Wheezing, No Hemoptysis, No Pleuritic Pain, No Sputum; Other (SOB at rest) Gastrointestinal: No Nausea, No Vomiting, No Abdominal Pain, No Diarrhea, No Constipation, No Melena, No Hematochezia, No Other Genitourinary: No Dysuria, No Frequency, No Incontinence, No Hematuria, No Retention; Other (Edwards catheter in place) Musculoskeletal: No other, No neck pain, No shoulder pain, No arm pain, No back pain, No hand pain, No leg pain, No foot pain Skin: No Rash, No Lesions, No Jaundice, No Bruising, No Other Objective Vitals Vital Signs Date Time Temp Pulse Resp B/P (MAP) Pulse Ox O2 Delivery O2 Flow Rate FiO2 05/30/25 09:07 79 141/68 05/30/25 09:00 98.6 18 96 98.6 05/30/25 08:00 Nasal Cannula* 2 28 Intake/Output Intake and Output 05/30/25 07:00 Intake Total 640 ml Output Total 500 ml Balance 140 ml Intake Oral 640 ml Output Urine Total 500 ml General Appearance: Alert, Oriented X3, Cooperative, No acute distress, mild distress, moderate distress, severe distress, Other Lungs: Clear to auscultation, Normal air movement, Other Cardiovascular: Regular rate, Normal S1, Normal S2, No murmurs, Gallops, Rubs, Other Abdomen: Normal bowel sounds, Soft, No tenderness, No hepatospenomegaly, No masses, Other Medications Current Medications Medications Dose Ordered Sig/Mikki Route Start Time Stop Time Status Last Admin Dose Admin Sodium Chloride 10 ml QSHIFT@10,22 IV 05/14/25 22:00 05/30/25 09:08 10 ML Dextrose 50 ml UD PRN IV 05/15/25 13:15 Cancel Dextrose 50 ml UD PRN IV 05/15/25 16:45 Hydralazine HCl 10 mg Q6HP PRN IV 05/19/25 12:00 05/29/25 15:07 10 MG Diagnostic Test (Pha) 1 strip Q6HR 05/21/25 18:00 05/30/25 11:38 1 STRIP Insulin Human Regular Q6HR SC 05/21/25 18:00 05/27/25 18:40 2 UNITS Sacubitril/ Valsartan 1 tab BID PO 05/22/25 22:00 05/30/25 09:08 1 TAB Amiodarone HCl 200 mg Q12HR PO 05/23/25 09:45 05/30/25 09:08 200 MG Potassium Chloride 100 ml @ 50 mls/hr Q2H IV 05/23/25 19:15 05/24/25 03:14 UNV Spironolactone 50 mg BID PO 05/26/25 10:00 05/30/25 09:08 50 MG Acetaminophen 650 mg Q8HP PRN PO 05/26/25 21:00 05/29/25 10:13 650 MG Empaglifozin 10 mg DAILY PO 05/27/25 10:00 05/30/25 09:07 10 MG Metoprolol Succinate 50 mg DAILY PO 05/27/25 11:15 05/30/25 09:07 50 MG Ciprofloxacin 500 mg Q12HR PO 05/27/25 22:00 05/30/25 09:08 500 MG Atorvastatin Calcium 40 mg HS PO 05/27/25 22:00 05/29/25 21:09 40 MG Thiamine HCl 100 mg DAILY PO 05/28/25 10:00 05/30/25 09:07 100 MG Pantoprazole Sodium 40 mg DAILY IV 05/30/25 09:00 05/30/25 09:07 40 MG Laboratory Results Laboratory Tests 05/30/25 05:20 Chemistry Test 05/30/25 05:20 Calcium Level 8.6 mg/dL (8.7-10.4) L Urinalysis Test 05/13/25 23:30 05/16/25 10:35 Urine Color Badger (Yellow) H Urine Clarity Turbid (Clear) H Urine pH 5.5 (5.0-9.0) Urine Specific Baker 1.023 (1.001-1.035) Urine Protein 2+ (Negative) H Urine Ketones Negative (Negative) Urine Blood Trace /uL (Negative) H Urine Nitrite Negative (Negative) Urine Bilirubin 1+ (Negative) Urine Urobilinogen 6 mg/dL (Negative) Urine Leukocyte Esterase Negative /uL (Negative) Urine RBC 2 /hpf (0 - 3) Urine Microscopic WBC 7 /HPF (0-3) H Urine Squamous Epithelial Cells Few /hpf (<5) Urine Bacteria None seen /hpf (None Seen) Urine Hyaline Casts Few /lpf (0 - 2) Urine Mucus Few (None Seen) Urine Glucose Trace mg/dL (Normal) Urine Creatinine 32.74 mg/dL (30.0-125.0) Urine Sodium 76 mmol/L (40-220) Microbiology Microbiology Date/Time Source Procedure Growth Status 05/18/25 10:35 Sputum Gram Stain - Final Complete 05/18/25 10:35 Respiratory Culture - Final Pseudomonas aeruginosa Complete 05/14/25 08:24 Voided Urine Urine Culture - Final Complete 05/14/25 02:46 Nose MRSA Screen - Final Complete 05/13/25 17:25 Blood Blood Culture - Final NO GROWTH AFTER 5 DAYS OF INCUBATION. Complete Labs and/or images reviewed: Labs reviewed by me, Image(s) reviewed by me Assessment/Plan Assessment/Plan Severe anemia Possible GI bleed History of hepatocellular stasis status post EHL with biliary stenting Alcoholic liver cirrhosis History of hepatitis-C Pneumonia Plan Discussed with Dr. Leon Advance to regular diet We will continue to monitor patient Recheck labs Plan discussed with: Patient Date of Service: May 30, 2025 Billing Provider: PAPO CALL Common Visit Codes: [id number] INP/OBS CARE(HIGH) PAPO CALL May 30, 2025 13:47
--- NOTE | 2025-05-30 17:54 | DVHPNRES ---
Progress Note Date Seen: May 30, 2025 Resident Creating Document: DUARTE SPIVEY RESIDENT Has the PT tested + for MRSA If YES, has PT been informed?: No Medical Necessity Reason Pt with a Central, PICC or Fol: Yes The following are medically ne: PICC Line, Wong Catheter Reason for wong catheter: Strict I&O Subjective Review of Systems This is a 74-year-old male with past medical history of CHF on home O2 2 to 3L, diabetes mellitus, liver disease, hypertension, and hyperlipidemia who presented to [facility] ED with complaint of shortness of breaths. Patient reports that he has been experiencing worsening shortness of breaths with associated leg swelling and chest pressure since this morning. Patient was on 87% on 2L despite giving 2 DuoNeb treatments en route, placing him on a non- rebreather mask upon arrival. in the ED patient was hypoxic, increased work of breathing, desaturating on BiPAP and subsequently intubated. Patient was seen and examined in the ICU. status post extubation on 2 L oxygen through nasal cannula. alert oriented x3. Patient underwent left heart catheterization on 05/24/2025 and revealed RCA 90% stenosis, left circumflex 50%, lad mild diffuse plaque and mentioned the patient is not a good candidate of any invasive procedure right now and recommended medical therapy. Stool pccult blood positive and H&H is stable at 8.7/26.7. Hold eloquis. plavix, cardiac diet and GI recommended conservative management, outpatient GI procedure as needed when patient is cleared by Cardiology . Objective vital signs Vital Sign Date Time Temp Pulse Resp B/P (MAP) Pulse Ox O2 Delivery O2 Flow Rate FiO2 05/30/25 17:00 98.7 75 18 147/88 (107) 96 98.7 05/30/25 08:00 Nasal Cannula* 2 28 Total Intake and Output 05/29/25 05/29/25 05/30/25 15:00 23:00 07:00 Intake Total 640 ml Output Total 500 ml Balance 140 ml medications Current Medications Medications Dose Ordered Sig/Mikki Route Start Time Stop Time Status Last Admin Dose Admin Sodium Chloride 10 ml QSHIFT@10,22 IV 05/14/25 22:00 05/30/25 09:08 10 ML Dextrose 50 ml UD PRN IV 05/15/25 13:15 Cancel Dextrose 50 ml UD PRN IV 05/15/25 16:45 Hydralazine HCl 10 mg Q6HP PRN IV 05/19/25 12:00 05/29/25 15:07 10 MG Diagnostic Test (Pha) 1 strip Q6HR 05/21/25 18:00 05/30/25 17:40 1 STRIP Insulin Human Regular Q6HR SC 05/21/25 18:00 05/27/25 18:40 2 UNITS Sacubitril/ Valsartan 1 tab BID PO 05/22/25 22:00 05/30/25 09:08 1 TAB Amiodarone HCl 200 mg Q12HR PO 05/23/25 09:45 05/30/25 09:08 200 MG Potassium Chloride 100 ml @ 50 mls/hr Q2H IV 05/23/25 19:15 05/24/25 03:14 UNV Spironolactone 50 mg BID PO 05/26/25 10:00 05/30/25 09:08 50 MG Acetaminophen 650 mg Q8HP PRN PO 05/26/25 21:00 05/29/25 10:13 650 MG Empaglifozin 10 mg DAILY PO 05/27/25 10:00 05/30/25 09:07 10 MG Metoprolol Succinate 50 mg DAILY PO 05/27/25 11:15 05/30/25 09:07 50 MG Ciprofloxacin 500 mg Q12HR PO 05/27/25 22:00 05/30/25 09:08 500 MG Atorvastatin Calcium 40 mg HS PO 05/27/25 22:00 05/29/25 21:09 40 MG Thiamine HCl 100 mg DAILY PO 05/28/25 10:00 05/30/25 09:07 100 MG Pantoprazole Sodium 40 mg DAILY IV 05/30/25 09:00 05/30/25 09:07 40 MG Examination Physical examination: General Appearance: Alert, Oriented X3, Cooperative, on nasal canula 2L HEENT: Atraumatic, PERRLA, EOMI, Mucous membrane moist/pink Respiratory: Bilateral vesicular breath sound with rales on right lower lobe Cardiovascular: Regular rate, Normal S1, Normal S2, No murmurs, no chest wall tenderness Abdominal: Normal bowel sounds, Soft, No tenderness, No hepatospenomegaly, No masses Extremities: No clubbing, No cyanosis, No edema, Normal pulses, No tenderness/swelling Skin: No rashes, No breakdown, No significant lesion Neuro: Grossly intact cranial nerves Cranial nerves 3-12 NL, Reflexes 2+ Psych/Mental Status: Could not be assessed laboratory and microbiology Laboratory Tests 05/30/25 05:20 Test 05/30/25 05:20 Range/Units Serum Glucose 72 L 74-106 mg/dL Microbiology Date/Time Source Procedure Growth Status 05/18/25 10:35 Sputum Gram Stain - Final Complete 05/18/25 10:35 Respiratory Culture - Final Pseudomonas aeruginosa Complete 05/14/25 08:24 Voided Urine Urine Culture - Final Complete 05/14/25 02:46 Nose MRSA Screen - Final Complete 05/13/25 17:25 Blood Blood Culture - Final NO GROWTH AFTER 5 DAYS OF INCUBATION. 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 CARDIOVASCULAR: Acute on chronic decompensated systolic heart failure likely secondary to ischemic cardiomyopathy cardiogenic shock/ septic shock secondary to above NSTEMI type 1 , status post left heart catheterization Coronary artery disease Paroxysmal atrial fibrillation with RVR and secondary hypercoagulable state -chest x-ray demonstrated right-sided pneumonia with pulmonary vascular congestion -BNP> 5000 and trops were mildly elevated and flat - Echo on 02/10 demonstrated EF 10% with end-stage dilated heart failure, RVSP 38 mm Hg - status post extubation, off sedation and pressors - Amiodarone 200 mg p.o. b.i.d. - continue GDM T with metoprolol, Entresto and spironolactone - continue atorvastatin 40 mg at HS PULMONARY: Acute hypoxic respiratory failure secondary to exacerbation of CHF/ pneumonia right-sided Gram-positive versus Gram-negative community acquired pneumonia possible aspiration pneumonia Rule out lung malignancy - Right lower lobe atelectasis due to mucous plugging Mucous plugging from L6-L10 and R1-R10 RML BAL performed . - chest x-ray demonstrated right-sided pneumonia with pulmonary vascular congestion - respiratory culture on 05/18 revealed Pseudomonas - ciprofloxacin 500 mg p.o. b.i.d. 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 - Lactulose 30 mL b.i.d. - Clear liquid diet - IV protonix 40 mg bid - GI recommended conservative management, outpatient GI procedure as needed when patient is cleared by Cardiology . - Monitor H&H GENITOURINARY: Acute kidney injury likely secondary to shock / VMN improved - strict I&O - monitor BMP ENDOCRINE: Hypoglycemia resolved - monitor blood sugar closely METABOLIC: Moderate protein calorie malnutrition Hypernatremia Hypokalemia HEME: Acute on chronic anaemia due to GI bleeding Acute DVT of right upper arm Chronic microcytic hypochromic anemia likely due to anemia of chronic disease Thrombocytopenia likely due to cirrhosis - Doppler venous scan of the upper extremity showed deep vein thrombosis of right axillary and subclavian vein and thrombosis of left basilic vein - Hold eloquis due to GI bleeding. INFECTIOUS DISEASE: Right-sided Gram-positive/ Gram-negative community acquired pneumonia Possible aspiration pneumonia - chest x-ray demonstrated right-sided pneumonia with pulmonary vascular congestion - Preliminary blood cultures were unremarkable and MRSA negative - sputum culture on 05/18 showed Pseudomonas - ciprofloxacin 500 mg p.o. b.i.d. DIET: Clear liquid diet DVT prophylax: Hold Eloquis GI prophylaxis:Protonix Bowel regimen:Lactulose Code status: modified DNR, no chest compression LINES/DRAINS/ACCESS: Rt upper arm PICC line on 05/14 IV access: Rt upper arm PICC line on 05/14. DISPOSITION: Telemetry Goal of care and code status discussed with patient and the son for more than 41 minutes Case discussed with Dr. Hopkins Plan discussed with: Patient, Son, Other (RN) My Orders My Orders Orders - DUARTE SPIVEY RESIDENT Procedure Category Date Status Time Pantoprazole PHA 05/30/25 In Process (Protonix) 09:00 Cardiac DIET 05/30/25 Transmitted Diet-2gna,Lofat,Lochol Lunch Ok To Change Wong ORDERS 05/30/25 Transmitted 13:48 Dietary Evaluation Review Comments: 1. advance TF to Vital HP 55ml/hr providing 115g protwin, [id number] free water supporting pt's needs at 100% protein, 79% energy. 2. Reassess needs when Pt is off vent, and/or medically feasible for PO feedings. Expected Outcomes/Goals: maintain wt, avoid catablism Date of Service: May 30, 2025 Billing Provider: NOÉ HOPKINS MD Common Visit Codes: [id number] INP/OBS CARE(HIGH) Secondary Visit Codes: [id number] CARE PLAN 30 MINUTES DUARTE SPIVEY RESIDENT May 30, 2025 17:54 NOÉ HOPKINS MD Jun 01, 2025 12:06
[2025-05-31 01:00] VITALS: BP 129/83; PULSE 77; RESP 18; TEMP 98; O2SAT 99
[2025-05-31 05:00] VITALS: BP 136/77; PULSE 76; RESP 18; TEMP 97.7; O2SAT 100
[2025-05-31 05:46] LABS: Hematocrit 26.8 % (41.0-53.0); Hemoglobin 8.8 g/dL (13.5-17.5); Mean Corpuscular Hemoglobin 21.3 pg (28.0-32.0); Mean Corpuscular Volume 65.0 fL (80.0-100.0); Nucleated Red Blood Cells % 0.2 %
[2025-05-31 06:00] LABS: Anion Gap 8 (5-15); Carbon Dioxide 26 mmol/L (20-31); Chloride 104 mmol/L (98-107); Potassium 3.8 mmol/L (3.5-5.1); Sodium 138 mmol/L (136-145)
[2025-05-31 06:06] LABS: BUN/Creatinine Ratio 9.3 (10.0-20.0)
[2025-05-31 06:09] LABS: Blood Urea Nitrogen 7 mg/dL (9-23); Calcium 8.4 mg/dL (8.7-10.4); Glucose 113 mg/dL (74-106)
[2025-05-31 08:00] VITALS: PULSE 6; RESP 19; O2SAT 100
[2025-05-31 08:55] VITALS: BP 135/80; PULSE 76; RESP 16; TEMP 97.4; O2SAT 98
[2025-05-31 12:46] VITALS: BP 129/89; PULSE 75; RESP 16; TEMP 98; O2SAT 100
--- NOTE | 2025-05-31 13:00 | DVHPN2 ---
Subjective Patient is feeling better. No abdominal pain. Able to tolerate regular diet No nausea vomiting Bowel movement this a.m. small in size No red blood rectally. No melena Reviewed: Care Plan Changes from previous H/P or p: No Changes General: Per HPI Eyes: No Pain, No Vision change, No Conjunctivae inflammation, No Eyelid inflammation, No Other, No Redness ENT: No Ear pain, No Ear discharge, No Nose pain, No Nose discharge, No Nose congestion, No Mouth pain, No Mouth swelling, No Throat pain, No Throat swelling, No Other Cardiovascular: No Chest Pain, No Palpitations, No Orthopnea, No Paroxysmal Noc. Dyspnea, No Edema, No Lt Headedness, No Other Respiratory: No Cough, No Dry; Shortness of breath, SOB with excertion; No Wheezing, No Hemoptysis, No Pleuritic Pain, No Sputum; Other (SOB at rest) Gastrointestinal: No Nausea, No Vomiting, No Abdominal Pain, No Diarrhea, No Constipation, No Melena, No Hematochezia, No Other Genitourinary: No Dysuria, No Frequency, No Incontinence, No Hematuria, No Retention; Other (Edwards catheter in place) Musculoskeletal: No other, No neck pain, No shoulder pain, No arm pain, No back pain, No hand pain, No leg pain, No foot pain Skin: No Rash, No Lesions, No Jaundice, No Bruising, No Other Objective Vitals Vital Signs Date Time Temp Pulse Resp B/P (MAP) Pulse Ox O2 Delivery O2 Flow Rate FiO2 05/31/25 12:46 98.0 75 16 129/89 (102) 100 98.0 05/30/25 19:50 Nasal Cannula* 2 28 General Appearance: Alert, Oriented X3, Cooperative, No acute distress, mild distress, moderate distress, severe distress, Other Lungs: Clear to auscultation Cardiovascular: Regular rate Abdomen: Normal bowel sounds, Soft Medications Current Medications Medications Dose Ordered Sig/Mikki Route Start Time Stop Time Status Last Admin Dose Admin Sodium Chloride 10 ml QSHIFT@10,22 IV 05/14/25 22:00 05/30/25 21:33 10 ML Dextrose 50 ml UD PRN IV 05/15/25 13:15 Cancel Dextrose 50 ml UD PRN IV 05/15/25 16:45 Hydralazine HCl 10 mg Q6HP PRN IV 05/19/25 12:00 05/29/25 15:07 10 MG Diagnostic Test (Pha) 1 strip Q6HR 05/21/25 18:00 05/31/25 05:55 1 STRIP Insulin Human Regular Q6HR SC 05/21/25 18:00 05/27/25 18:40 2 UNITS Sacubitril/ Valsartan 1 tab BID PO 05/22/25 22:00 05/31/25 10:25 1 TAB Amiodarone HCl 200 mg Q12HR PO 05/23/25 09:45 05/31/25 10:24 200 MG Potassium Chloride 100 ml @ 50 mls/hr Q2H IV 05/23/25 19:15 05/24/25 03:14 UNV Spironolactone 50 mg BID PO 05/26/25 10:00 05/31/25 10:24 50 MG Acetaminophen 650 mg Q8HP PRN PO 05/26/25 21:00 05/29/25 10:13 650 MG Empaglifozin 10 mg DAILY PO 05/27/25 10:00 05/31/25 10:25 10 MG Metoprolol Succinate 50 mg DAILY PO 05/27/25 11:15 05/31/25 10:25 50 MG Ciprofloxacin 500 mg Q12HR PO 05/27/25 22:00 05/31/25 10:24 500 MG Atorvastatin Calcium 40 mg HS PO 05/27/25 22:00 05/30/25 21:34 40 MG Thiamine HCl 100 mg DAILY PO 05/28/25 10:00 05/31/25 10:25 100 MG Pantoprazole Sodium 40 mg DAILY IV 05/30/25 09:00 05/31/25 10:25 40 MG Laboratory Results Laboratory Tests 05/31/25 05:10 Chemistry Test 05/31/25 05:10 Calcium Level 8.4 mg/dL (8.7-10.4) L Urinalysis Test 05/13/25 23:30 05/16/25 10:35 Urine Color Rains (Yellow) H Urine Clarity Turbid (Clear) H Urine pH 5.5 (5.0-9.0) Urine Specific [place] 1.023 (1.001-1.035) Urine Protein 2+ (Negative) H Urine Ketones Negative (Negative) Urine Blood Trace /uL (Negative) H Urine Nitrite Negative (Negative) Urine Bilirubin 1+ (Negative) Urine Urobilinogen 6 mg/dL (Negative) Urine Leukocyte Esterase Negative /uL (Negative) Urine RBC 2 /hpf (0 - 3) Urine Microscopic WBC 7 /HPF (0-3) H Urine Squamous Epithelial Cells Few /hpf (<5) Urine Bacteria None seen /hpf (None Seen) Urine Hyaline Casts Few /lpf (0 - 2) Urine Mucus Few (None Seen) Urine Glucose Trace mg/dL (Normal) Urine Creatinine 32.74 mg/dL (30.0-125.0) Urine Sodium 76 mmol/L (40-220) Microbiology Microbiology Date/Time Source Procedure Growth Status 05/18/25 10:35 Sputum Gram Stain - Final Complete 05/18/25 10:35 Respiratory Culture - Final Pseudomonas aeruginosa Complete 05/14/25 08:24 Voided Urine Urine Culture - Final Complete 05/14/25 02:46 Nose MRSA Screen - Final Complete 05/13/25 17:25 Blood Blood Culture - Final NO GROWTH AFTER 5 DAYS OF INCUBATION. Complete Labs and/or images reviewed: Labs reviewed by me, Image(s) reviewed by me Assessment/Plan Assessment/Plan Severe anemia Possible GI bleed History of hepatocellular stasis status post EHL with biliary stenting Alcoholic liver cirrhosis History of hepatitis-C Pneumonia Plan Discussed with Dr. Leon We will continue to monitor patient Recheck labs Outpatient GI follow recommended in next available appointment Plan discussed with: Patient, Daughter, Son Date of Service: May 31, 2025 Billing Provider: PAPO CALL Common Visit Codes: [id number] INP/OBS CARE(HIGH), [id number] SAME DATE (MOD) PAPO CALL May 31, 2025 13:00
[2025-05-31] MEDS ORDERED: ATOR40TA52 PO (14:00)
[2025-05-31] MEDS ORDERED: SPIR25TA8 PO (14:00)
[2025-05-31] MEDS ORDERED: METO1TAB9 PO (14:00)
[2025-05-31] MEDS ORDERED: EMPA1TAB PO (14:00)
[2025-05-31] MEDS ORDERED: AMIO200T33 PO (14:00)
[2025-05-31] MEDS ORDERED: ASPI81CH59 PO (14:00)
[2025-05-31] MEDS ORDERED: SACU1TAB PO (14:00)
[2025-05-31] MEDS ORDERED: CIPR500T4 PO (14:02)
[2025-05-31 14:37] VITALS: BP 135/80; PULSE 76; RESP 16; TEMP 98; O2SAT 98
--- NOTE | 2025-05-31 16:09 | DVHDSRES ---
Discharge Summary Date of Admission Resident Creating Document: DUARTE SPIVEY RESIDENT May 13, 2025 at 23:07 Date of Discharge: May 31, 2025 Admitting Diagnosis Acute Metabolic encephalopathy secondary to acute hypoxic respiratory failure Wounds: Stage 1 sacral erythema Labs/Diagnostic Data: Laboratory Results Test 05/31/25 11:33 05/31/25 05:10 05/27/25 15:00 05/27/25 05:35 POC Glucose 114 mg/dl (70-106) White Blood Count 6.1 10^3/uL (4.4-10.8) Red Blood Count 4.12 10^6/uL (4.5-5.90) Hemoglobin 8.8 g/dL (13.5-17.5) Hematocrit 26.8 % (41.0-53.0) Mean Corpuscular Volume 65.0 fL (80.0-100.0) Mean Corpuscular Hemoglobin 21.3 pg (28.0-32.0) Mean Corpuscular Hemoglobin Concent 32.8 g/dL (32.0-36.0) Red Cell Distribution Width 18.9 % (11.8-14.3) Platelet Count 200 10^3/uL (140-450) Mean Platelet Volume 8.2 fL (6.9-10.8) Neutrophils (%) (Auto) 81.3 % (37.0-80.0) Lymphocytes (%) (Auto) 8.0 % (10.0-50.0) Monocytes (%) (Auto) 9.8 % (0.0-12.0) Eosinophils (%) (Auto) 0.5 % (0.0-7.0) Basophils (%) (Auto) 0.4 % (0.0-2.0) Neutrophils # (Auto) 4.9 10 ^3/uL (1.6-8.6) Lymphocytes # (Auto) 0.5 10 ^3/uL (0.4-5.4) Monocytes # (Auto) 0.6 10 ^3/uL (0-1.3) Eosinophils # (Auto) 0 10 ^3/uL (0-0.8) Basophils # (Auto) 0 10 ^3/uL (0-0.2) Nucleated Red Blood Cells 0.2 % Sodium Level 138 mmol/L (136-145) Potassium Level 3.8 mmol/L (3.5-5.1) Chloride Level 104 mmol/L (98-107) Carbon Dioxide Level 26 mmol/L (20-31) Anion Gap 8 (5-15) Blood Urea Nitrogen 7 mg/dL (9-23) Creatinine 0.75 mg/dL (0.700-1.30) Glomerular Filtration Rate Calc 95 mL/min (>90) BUN/Creatinine Ratio 9.3 (10.0-20.0) Serum Glucose 113 mg/dL (74-106) Calcium Level 8.4 mg/dL (8.7-10.4) Stool Occult Blood Positive (Negative) Stool Occult Blood Sample #3 (Negative) Phosphorus Level 2.0 mg/dL (2.4-5.1) Magnesium Level 2.0 mg/dL (1.6-2.6) Test 05/24/25 05:34 05/23/25 05:10 05/21/25 22:00 05/21/25 07:25 Prothrombin Time 11.7 sec (9.3-11.8) Prothrombin Time INR 1.12 (0.9-1.15) Activated Partial Thromboplast Time 45.6 SEC (24.5-34.5) Total Bilirubin 2.1 mg/dL (0.2-1.0) Aspartate Amino Transferase (AST) 80 U/L (13-40) Alanine Aminotransferase (ALT) 48 U/L (7-40) Alkaline Phosphatase 333 U/L (46-116) B-Type Natriuretic Peptide 1640.07 pg/mL (0-100) Total Protein 6.0 g/dL (5.7-8.2) Albumin 2.7 g/dL (3.2-4.8) Vancomycin Level Trough 15.2 ug/mL (5-10) Differential Total Cells Counted 100.0 (100) Neutrophils % (Manual) 95 (37.0-80.0) Band Neutrophils % (Manual) 0 Lymphocytes % (Manual) 2 (10.0-50.0) Monocytes % (Manual) 3 (0-12) Eosinophils % (Manual) 0 (0-7) Basophils % (Manual) 0 (0.0-2.0) Metamyelocytes % (manual) 0 Myelocytes % (Manual) 0 Promyelocytes % (Manual) 0 Blast Cells % (Manual) 0 Reactive Lymphocytes 0 Platelet Estimate Adequate Hypochromasia (manual) Moderate Microcytosis Marked Random Vancomycin Level 12.9 ug/mL (5-10) Test 05/20/25 10:40 05/20/25 06:52 05/19/25 03:30 05/18/25 02:47 Blood Gas Specimen Type Arterial Blood Gas Sample Site Left radial Blood Gas Patient Temperature 37.0 Arterial Blood Date Drawn [id number] Arterial Blood pH 7.531 (7.350-7.450) Arterial Blood Partial Pressure CO2 36.8 mmHg (35.0-48.0) Arterial Blood Partial Pressure O2 96.6 mmHg (83.0-108.0) Arterial Blood HCO3 30.1 mmol/L (21.0-28.0) Arterial Blood Oxygen Saturation 97.4 % (94.0-98.0) Arterial Blood Base Excess 7.2 mmol/L (-2.0-3.0) Arterial Blood Oxyhemoglobin 96.3 % (94.0-98.0) Arterial Blood Carboxyhemoglobin 0.5 % (0.5-1.5) Arterial Blood Methemoglobin 0.6 % (0.0-1.5) Cabrera Test Modified Blood Gas Total Hemoglobin 13.40 g/dL (13.5-17.5) Blood Gas Modality Vent - cpap FiO2 % 30.0 Blood Gas Pressure Support 8 Blood Gas PEEP or CPAP 5.0 Blood Gas Set Respiration Rate 16.0 Blood Gas Tidal Volume 450.0 Anisocytosis (manual) Slight Target Cells Few Monie Cells Few Hemoglobin A1c 5.5 % A1C (<5.7) Test 05/17/25 12:58 05/16/25 10:35 05/16/25 03:00 05/15/25 04:21 Lactic Acid Level 2.4 mmol/L (0.4-2.0) Urine Creatinine 32.74 mg/dL (30.0-125.0) Urine Sodium 76 mmol/L (40-220) Carcinoembryonic Antigen 1.67 ng/mL (<=5.0) CA 19-9 Antigen 29 U/mL (0-35) Ammonia < 10 umol/L (11-32) Test 05/14/25 18:40 05/14/25 04:00 05/14/25 03:38 05/14/25 00:20 Tumor Marker Alpha Fetoprotein <1.8 ng/mL (0.0-8.4) Blood Gas Spontaneous Rate 20 Blood Gas Spontaneous Tidal Volume 514 Bl Gas Inspiratory/Expiratory Ratio 1:2.3 Blood Gas Critical Value Read Back Yes Blood Gas Notified Whom margarito Stone Blood Gas Notified Time [id number] Blood Gas Notified By Rt, mayte garcia Vitamin B12 Level 776 pg/mL (211-911) Folic Acid 9.29 ng/mL (>5.38) Thyroid Stimulating Hormone (TSH) 4.16 uIU/mL (0.55-4.78) Free Thyroxine (T4) Calculated 0.99 ng/dL (0.89-1.76) Blood Gas EPAP 5 Blood Gas IPAP 12 Test 05/13/25 23:30 05/13/25 19:33 Urine Color [place] (Yellow) Urine Clarity Turbid (Clear) Urine pH 5.5 (5.0-9.0) Urine Specific [place] 1.023 (1.001-1.035) Urine Protein 2+ (Negative) Urine Ketones Negative (Negative) Urine Blood Trace /uL (Negative) Urine Nitrite Negative (Negative) Urine Bilirubin 1+ (Negative) Urine Urobilinogen 6 mg/dL (Negative) Urine Leukocyte Esterase Negative /uL (Negative) Urine RBC 2 /hpf (0 - 3) Urine Microscopic WBC 7 /HPF (0-3) Urine Squamous Epithelial Cells Few /hpf (<5) Urine Bacteria None seen /hpf (None Seen) Urine Hyaline Casts Few /lpf (0 - 2) Urine Mucus Few (None Seen) Urine Glucose Trace mg/dL (Normal) Troponin I High Sensitivity 87 ng/L (</=54) Other Laboratory Tests 05/31/25 05:10 Brief Hx & Hospital Course: This is a 74-year-old male with past medical history of CHF on home O2 2 to 3L, diabetes mellitus, liver disease, hypertension, and hyperlipidemia who presented to [facility] ED with complaint of shortness of breaths. Patient reports that he has been experiencing worsening shortness of breaths with associated leg swelling and chest pressure since this morning. Patient was on 87% on 2L despite giving 2 DuoNeb treatments en route, placing him on a non- rebreather mask upon arrival. in the ED patient was hypoxic, increased work of breathing, desaturating on BiPAP and subsequently intubated. Hospital course: Initially he was on mechanical ventilation with FiO2 40%, tidal volume 500 mL, peep 7, respiratory rate 20. chest x-ray demonstrated right-sided pneumonia with pulmonary vascular congestion . BNP> 5000 and trops were mildly elevated and flat and Echo on 02/10 demonstrated EF 10% with end- stage dilated heart failure, RVSP 38 mm Hg. Respiratory Culture demonstrated preliminary Streptococcus pneumoniae and the patient was treated with IV vancomycin and IV cefepime. post bronchoscopy respiratory culture demonstrated Pseudomonas aeruginosa and later discontinued vanco and cefepime and continued IV Zosyn.Patient underwent left heart catheterization on 05/24/2025 and revealed RCA 90% stenosis, left circumflex 50%, lad mild diffuse plaque and mentioned the patient is not a good candidate of any invasive procedure right now and recommended medical therapy. Patient was extubated on 05/20/2025 and later downgraded to JENNIFER and then telemetry. 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 CT chest abdomen pelvis without contrast showed mild colonic diverticulosis, without bowel wall thickening or dilatation, liver, gallbladder, pancreas, spleen are unremarkable. Doppler venous scan of the upper extremity showed deep vein thrombosis of right axillary and subclavian vein and thrombosis of left basilic vein. initially lovenox was started later converted to DOAC but the patient developed GI bleeding, stool occult blood positive. First reduced dose of Eliquis to 2.5 mg b.i.d, but still hemoglobin was dropping from 14 to 8.4. Eliquis was hold and GI consulted and they recommended conservative management, outpatient GI procedure as needed when patient is cleared by Cardiology. Last 2 day hemoglobin is stable at 8.7 and patient is tolerating oral diet, physical therapy on board. Physical therapy recommended SNF but the patient's son wants home health for PT as he is a home health care worker and refused SNF placement. ship worker was consulted for arrangement of home health, hospital bed, bedside commode, and walker. Discharge plan was discussed with the son and explained that in his father situation we were not able to start anticoagulant right now and advised to follow up with primary care in 1 week and reassess the patient to start anticoagulant as he has newly onset AFib and acute DVT of right upper extremity. Patient is being discharged to home with home health today. Physical examination: General Appearance: Alert, Oriented X3, Cooperative, on nasal canula 2L HEENT: Atraumatic, PERRLA, EOMI, Mucous membrane moist/pink Respiratory: Bilateral vesicular breath sound with rales on right lower lobe Cardiovascular: Regular rate, Normal S1, Normal S2, No murmurs, no chest wall tenderness Abdominal: Normal bowel sounds, Soft, No tenderness, No hepatospenomegaly, No masses Extremities: No clubbing, No cyanosis, No edema, Normal pulses, No tenderness/swelling Skin: No rashes, No breakdown, No significant lesion Neuro: Grossly intact cranial nerves Cranial nerves 3-12 NL, Reflexes 2+ Psych/Mental Status: Normal Diagnosis: Acute Metabolic encephalopathy likely secondary to acute hypoxic respiratory failure unequal pupil likely due to right eye prosthesis Acute on chronic decompensated systolic heart failure likely secondary to ischemic cardiomyopathy cardiogenic shock/ septic shock secondary to above NSTEMI type 1 , status post left heart catheterization Coronary artery disease Paroxysmal atrial fibrillation with RVR and secondary hypercoagulable state Acute hypoxic respiratory failure secondary to exacerbation of CHF/ pneumonia Right-sided Gram-positive versus Gram-negative community acquired pneumonia possible aspiration pneumonia Ruled out lung malignancy Acute GI bleeding History of hepatolisthesis, status post EHL with biliary stenting 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 History of hepatitis-C positive hyperbilirubinemia with transaminitis likely secondary to cirrhosis coagulopathy, pancytopenia and hyperammonemia likely secondary to cirrhosis Acute kidney injury likely secondary to shock / VMN improved Acute on chronic anaemia due to GI bleedin Acute DVT of right upper arm Chronic microcytic hypochromic anemia likely due to anemia of chronic disease Thrombocytopenia likely due to cirrhosis Consults/Reason for consult Cardiology and GI were consulted Operations or Procedures Operative Report Operative 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 PREOPERATIVE DIAGNOSES: severe chf with ef 10% POSTOP DIAGNOSIS: 1v cad DESCRIPTION OF PROCEDURE: The patient or appropriate family signed informed consent understanding the risks, benefits and alternatives of the procedure, they wished to proceed. The patient was brought to the cardiac labor relations representative in n.p.o. state. The patient was prepped in a sterile fashion. Sedation was used per cardiac cath protocol. I administered 2 mL of 2% lidocaine to the right wrist. With an antegrade front wall puncture. I cannulated the right radial artery and placed a 6-[place] Glidesheath slender. Next, an intra-arterial spasmolytic was administered. Next, a - 5 [place] catheter an and were used for coronary angiogram and LVEDP measurement and pressure pullback. At the completion of procedure, all guides and wires were removed, and there were no immediate complications. FINDINGS: RCA: Moderate vessel off the right sinus of Valsalva, there is a long 50% prox lesin, mid RCA has a focal heavily calcified 90% stenosis. distal rca gives off pda with mild diffuse plaque. LEFT MAIN: Moderate size left main, it bifurcates into LAD and circumflex. mild plaque CIRCUMFLEX: Moderate caliber vessel coming off the left main with no flow limiting stenosis. 50% prox stenosis , with several OM branches with moderate disease LAD: LAD is a moderate caliber vessel coming of the left main. mild diffuse plaque LVEDP of 2 mmhg CONCLUSIONS: 1. severe 1 v cad PLAN: Aggressive risk factor modification and medical management for the patient. anti platelet pt is moving around during procedure, given his multiplle comorbidities recommend medical therapy for now Bilateral Upper Extremity Venous Duplex Clinical History: EDEMATEOUS WARM UPPER EXTREMITIES Comparison: US US GUIDED VASCULAR ACCESS on DOS: 05/14/25, US CHEST ULTRASOUND on DOS: 05/02/25, US BILAT LOWER DVT on DOS: 01/24/25 Findings: Duplex Doppler evaluation of the venous systems of the right and left lower neck and upper extremities including color Doppler and spectral/pulsed waveform analysis was performed. IMPRESSION: Positive thrombus is present in the right subclavian vein, axillary vein and basilic vein with PICC line in-situ. Left basilic vein is thrombosed. Critical Result: DVT AP portable chest CLINICAL INDICATION: sob Comparison: 05/01/2025 FINDINGS: Infiltrates in the right lung. Left lung clear. Heart size enlarged. IMPRESSION: 1. Right-sided pneumonia worse than on previous exam CLINICAL HISTORY: RT PNA; LIVER MASS TECHNIQUE: CT of the chest, abdomen, and pelvis was performed without IV contrast. Coronal and sagittal reformatted images were performed for better depression of the anatomy. This exam was performed according to our departmental dose optimization program. Up-to-date CT equipment and radiation dose reduction techniques are utilized as appropriate. CTDI 13.7 DLP 945.3 COMPARISON: XY CHEST PORTABLE on DOS: 05/18/25, XY CHEST PORTABLE on DOS: 05/17/25, XY CHEST PORTABLE on DOS: 05/16/25, US ABDOMEN COMPLETE SONOGRAM on DOS: 05/15/25, XY CHEST PORTABLE on DOS: 05/15/25 FINDINGS: CHEST: And endotracheal tube terminates in satisfactory position above the yimi. A right PICC terminates at the table atrial junction. The thoracic aorta is normal in course and caliber. There are mild aortic arch atherosclerotic calcifications. The heart is normal in size. There are 3 vessel coronary artery calcifications. No pericardial effusion is seen. The main pulmonary artery dilated, measuring 3.7 cm diameter. No enlarged mediastinal, hilar, or axillary lymph node is present. The central airways are patent. There is no bronchiectasis. There are moderate centrilobular investments changes in both lungs, most notable at the apices. There are patchy right greater than left lower lobe opacities. There is mild right posterior upper and middle lobe atelectasis. There is a small right pleural effusion. No left pleural fusion is seen. ABDOMEN/PELVIS: The liver, gallbladder, pancreas, spleen, and renal glands roasting remarkable. There are numerous right and few left renal hilar calcifications, favor vascular. The prostate gland is obscured by beam hardening artifact from patient hip arthroplasties. The bladder is poorly seen and decompressed by wong catheter. The abdominal aorta is normal in course and caliber. There are moderate to advanced atherosclerotic calcifications. There is no free intraperitoneal air. There is trace ascites. There is extensive body wall edema, particularly at the lower extremities. There is no enlarged abdominal or pelvic lymph node. There is no bowel wall thickening or dilatation. The appendix is normal. There is mild left colon diverticulosis. A NGT tube terminates at the stomach. BONES: No acute osseous abnormality is evident. There are bilateral hip arthroplasties. IMPRESSION: Patchy right foot and left lower lobe opacities, favor infection / pneumonia. 3 vessel coronary artery calcifications. Pulmonary arterial hypertension. Trace right pleural effusion. Mild colonic diverticulosis. Extensive body wall edema, particularly at the visualized lower extremities. Condition at Discharge: Guarded Final Diagnosis/Problems List Acute Metabolic encephalopathy likely secondary to acute hypoxic respiratory failure unequal pupil likely due to right eye prosthesis Acute on chronic decompensated systolic heart failure likely secondary to ischemic cardiomyopathy cardiogenic shock/ septic shock secondary to above NSTEMI type 1 , status post left heart catheterization Coronary artery disease Paroxysmal atrial fibrillation with RVR and secondary hypercoagulable state Acute hypoxic respiratory failure secondary to exacerbation of CHF/ pneumonia Right-sided Gram-positive versus Gram-negative community acquired pneumonia possible aspiration pneumonia Ruled out lung malignancy Acute GI bleeding History of hepatolisthesis, status post EHL with biliary stenting 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 History of hepatitis-C positive hyperbilirubinemia with transaminitis likely secondary to cirrhosis coagulopathy, pancytopenia and hyperammonemia likely secondary to cirrhosis Acute kidney injury likely secondary to shock / VMN improved Acute on chronic anaemia due to GI bleedin Acute DVT of right upper arm Chronic microcytic hypochromic anemia likely due to anemia of chronic disease Thrombocytopenia likely due to cirrhosis Discharge Disposition: Home with Health Services Discharge Instruct/Medications Diet: Cardiac 2g Na,low cholest Activity: No Restrictions, As Tolerated Follow Up/Referral: Follow up with PCP in 1week Follow up with outpatient Cardiology and Gastroenterology in 1-2 weeks Medications: As per EMR Scheduled Amiodarone Hcl (Amiodarone Hcl), 1 TAB PO BID Aspirin (Aspirin Low Dose), 81 MG PO DAILY Aspirin (Aspirin Low Dose), 1 TAB PO DAILY Atorvastatin Calcium (Atorvastatin Calcium), 40 MG PO HS Atorvastatin Calcium (Atorvastatin Calcium), 1 TAB PO HS Ciprofloxacin Hcl (Ciprofloxacin Hcl), 1 TAB PO BID Empagliflozin (Jardiance), 10 MG PO DAILY Empagliflozin (Jardiance), 10 MG PO DAILY Ergocalciferol (Vitamin D 32724 Unit), 50,000 UNIT PO Q7D Furosemide (Lasix), 40 MG PO DAILY Metoprolol Succinate (Metoprolol Succinate Er), 25 MG PO DAILY Metoprolol Succinate (Metoprolol Succinate Er), 50 MG PO DAILY Sacubitril-Valsartan (Entresto 24-26 mg), 1 TAB PO BID Sacubitril-Valsartan (Entresto 24-26 mg), 1 TAB PO BID Spironolactone (Aldactone), 25 MG PO DAILY Spironolactone (Spironolactone), 2 TAB PO BID Scheduled PRN Docusate Sodium (Docusate Sodium), 100 MG PO BIDPRN PRN Ondansetron Odt 4MG Tab (Zofran Po), 4 MG PO QID PRN Tramadol HCl (Tramadol HCl), 50 MG PO QID PRN Discharge Statement: "Patient was advised to return to the ER or call 911 if any headaches, dizziness, shortness of breath, chest pain, abdominal pain, bleeding, fevers, or worsening of medical condition. Patient was counseled about treatment plan, medications, possible side effects, patientverbalized understanding. All questions were answered to the best of my ability. This discharge took greater then 30 minutes in planning, reviewing documentation, counseling the patient, and discussing with other team members." ASSESSMENT ASSESSMENT Assessment acute metabolic encephalopathy DUARTE SPIVEY RESIDENT May 31, 2025 16:09
== END 2025-05-31 16:30 | disposition home health service (06) | DRG 870 ==
LOC: ER 14:52 → EDBD 14:52 → OVERFLOW 23:07 → ICU WEST 23:08 → DOU 05-21 17:28 → TELE-WESTW 05-25 19:05 → WEST WING 05-30 17:48
PROVIDERS: ADMIT Internal Medicine Pulmonary Disease; ATTEND Internal Medicine Pulmonary Disease
PROC: 5A09357 Assistance with Respiratory Ventilation, Less than 24 Consecutive Hours, Continuous Positive Airway Pressure (ICD-10-PCS; 2025-05-13)
PROC: 5A1955Z Respiratory Ventilation, Greater than 96 Consecutive Hours (ICD-10-PCS; principal; 2025-05-14)
PROC: 0BH17EZ Insertion of Endotracheal Airway into Trachea, Via Natural or Artificial Opening (ICD-10-PCS; 2025-05-14)
PROC: 02HV33Z Insertion of Infusion Device into Superior Vena Cava, Percutaneous Approach (ICD-10-PCS; 2025-05-14)
PROC: B548ZZA Ultrasonography of Superior Vena Cava, Guidance (ICD-10-PCS; 2025-05-14)
PROC: 04HY32Z Insertion of Monitoring Device into Lower Artery, Percutaneous Approach (ICD-10-PCS; 2025-05-15)
PROC: 0B9D8ZX Drainage of Right Middle Lung Lobe, Via Natural or Artificial Opening Endoscopic, Diagnostic (ICD-10-PCS; 2025-05-18)
PROC: 0BC78ZZ Extirpation of Matter from Left Main Bronchus, Via Natural or Artificial Opening Endoscopic (ICD-10-PCS; 2025-05-18)
PROC: 4A023N7 Measurement of Cardiac Sampling and Pressure, Left Heart, Percutaneous Approach (ICD-10-PCS; 2025-05-24)
PROC: B211YZZ Fluoroscopy of Multiple Coronary Arteries using Other Contrast (ICD-10-PCS; 2025-05-24)
DX: A41.9 Sepsis, unspecified organism (principal); G93.41 Metabolic encephalopathy; J15.69 Pneumonia due to other Gram-negative bacteria; I50.23 Acute on chronic systolic (congestive) heart failure; R57.0 Cardiogenic shock; I21.A1 Myocardial infarction type 2; N17.0 Acute kidney failure with tubular necrosis; J15.9 Unspecified bacterial pneumonia; R65.21 Severe sepsis with septic shock; J96.21 Acute and chronic respiratory failure with hypoxia; J69.0 Pneumonitis due to inhalation of food and vomit; K83.1 Obstruction of bile duct; E87.29 Other acidosis; G93.1 Anoxic brain damage, not elsewhere classified; D61.818 Other pancytopenia; E44.0 Moderate protein-calorie malnutrition; E87.4 Mixed disorder of acid-base balance; Z99.11 Dependence on respirator [ventilator] status; I13.0 Hypertensive heart and chronic kidney disease with heart failure and stage 1 through stage 4 chronic kidney disease, or unspecified chronic kidney disease; I82.A11 Acute embolism and thrombosis of right axillary vein; E87.0 Hyperosmolality and hypernatremia; I82.B11 Acute embolism and thrombosis of right subclavian vein; I82.611 Acute embolism and thrombosis of superficial veins of right upper extremity; K92.2 Gastrointestinal hemorrhage, unspecified; D68.69 Other thrombophilia; K76.82 Hepatic encephalopathy; K70.30 Alcoholic cirrhosis of liver without ascites; D69.6 Thrombocytopenia, unspecified; D50.9 Iron deficiency anemia, unspecified; I50.84 End stage heart failure; I48.0 Paroxysmal atrial fibrillation; E78.5 Hyperlipidemia, unspecified; N18.2 Chronic kidney disease, stage 2 (mild); E11.22 Type 2 diabetes mellitus with diabetic chronic kidney disease; E83.51 Hypocalcemia; Z66 Do not resuscitate; E87.6 Hypokalemia; I25.10 Atherosclerotic heart disease of native coronary artery without angina pectoris; D63.8 Anemia in other chronic diseases classified elsewhere; I25.5 Ischemic cardiomyopathy; I27.21 Secondary pulmonary arterial hypertension; F17.200 Nicotine dependence, unspecified, uncomplicated; K70.40 Alcoholic hepatic failure without coma; T17.998A Other foreign object in respiratory tract, part unspecified causing other injury, initial encounter; E11.649 Type 2 diabetes mellitus with hypoglycemia without coma; D69.59 Other secondary thrombocytopenia; Z99.81 Dependence on supplemental oxygen; Z82.49 Family history of ischemic heart disease and other diseases of the circulatory system; Z85.07 Personal history of malignant neoplasm of pancreas; Z96.653 Presence of artificial knee joint, bilateral; Z68.24 Body mass index [BMI] 24.0-24.9, adult; Z79.84 Long term (current) use of oral hypoglycemic drugs; Z79.899 Other long term (current) drug therapy; Z97.0 Presence of artificial eye; Z90.01 Acquired absence of eye; W44.8XXA Other foreign body entering into or through a natural orifice, initial encounter; Y93.89 Activity, other specified; Y92.89 Other specified places as the place of occurrence of the external cause; Y99.8 Other external cause status
CPT/HCPCS: 36415; 36569; 36600; 36620; 70450; 71045; 71046; 71250; 74176; 76700; 76937; 80048; 80053; 80202; 81001; 82105; 82140; 82270; 82378; 82565; 82570; 82607; 82746; 82805; 82962; 83036; 83605; 83735; 83880; 84100; 84132; 84300; 84439; 84443; 84484; 85007; 85025; 85027; 85610; 85730; 86301; 86850; 86900; 86901; 87040; 87070; 87077; 87081; 87086; 87186; 87205; 92610; 93005; 93458; 93970; 94002; 94003; 94660; 96365; 96375; 97110; 97116; 97163; 97530; 99152; 99291; 99292; G0378; J0169; J1815; J2248; J2250; J2470; J2543; J3480; J3490; Q9967

== ENCOUNTER 2025-06-20 16:54 | Emergency (ER) | payer MEDICARE, MEDICAID ==
[~2025-06-20] VITALS: Ht 195.6 cm; Wt 68.0 kg
[~2025-06-20 16:54] MED LIST changes: +AMIO200T33 PO; +ASPI81CH59 PO; +ATOR40TA52 PO; +CIPR500T4 PO; +METO1TAB9 PO; +SPIR25TA8 PO
[2025-06-20 16:55] VITALS: BP 150/79; RESP 20; TEMP 97.4; O2SAT 98
--- NOTE | 2025-06-20 17:17 | ED.PDOC ---
SOB-HPI HPI Comments 74 y/o M, brought in by caregiver, with PMHx of CHF, DM, HLD, HTN, and liver disease presents to the ED for CC of shortness of breath. Per caregiver, patient has been c/o shortness of breath with associated urinary frequency x4days. Patient reports, that he is on continuous home O2 at 3Lpm and has experienced no relief. Patient denies blurred vision, nausea, vomiting, cough, or chest pain. No other symptoms or modifying factors are present at this time. Patient was hypertensive sinus bradycardia on arrival. Chief Complaint: Shortness of Breath Time Seen by MD: 17:15 Primary Care Provider: NONE Reviewed notes: Nurses Notes, Medications, Allergies Information Source: Patient Mode of Arrival: Wheelchair Severity: Moderate Timing: Days Duration: Since onset Context: At Rest PE Risk Factors: None History of: COPD, CHF Prehospital treatment: None Modifying Factors: Nothing Associated Signs and Symptoms: None Quality: Tightness Past Medical History PAST MEDICAL HISTORY: CHF, DM, High Lipids, HTN, Liver Surgical History: PTCA Family History Family History: Reviewed,noncontributory to illness, No family hx of Cancer, No family hx of DM, No family hx of Heart mariam, No family hx of HTN, No family hx ofKidney mariam, No family hx of Liver mariam, No family hx of Lung mariam, No family hx of Stroke Social History Smoker: Non-Smoker, Quit Greater Than 1 Year Alcohol: Denies ETOH Use Drugs: Denies Drug Use Lives In: Home Constitutional: reports: fatigue, weakness; denies: chills, diaphoresis, fever, malaise, sweats, others EENTM: denies: blurred vision, double vision, ear bleeding, ear discharge, ear drainage, ear pain, ear ringing, eye pain, eye redness, hearing loss, mouth pain, mouth swelling, nasal discharge, nose bleeding, nose congestion, nose pain, photophobia, tearing, throat pain, throat swelling, voice changes, others Respiratory: reports: SOB at rest, shortness of breath; denies: cough, hemoptysis, orthopnea, SOB with excertion, stridor, wheezing, others Cardiovascular: reports: chest pain; denies: dizzy spells, diaphoresis, Dyspnea on exertion, edema, irregular heart beat, left arm pain, lightheadedness, palpitations, PND, syncope, others Gastrointestinal: denies: abdomen distended, abdominal pain, blood streaked bowels, constipated, diarrhea, dysphagia, difficulty swallowing, hematemesis, melena, nausea, poor appetite, poor fluid intake, rectal bleeding, rectal pain, vomiting, others Genitourinary: reports: frequency; denies: burning, dysuria, flank pain, hem aturia, incontinence, penile discharge, penile sore, pain, testicle pain, testicle swelling, urgency, others Neurological: denies: dizziness, fainting, headache, left sided numbness, left sided weakness, numbness, paresthesia, pre-existing deficit, right sided numbness, right sided weakness, seizure, speech problems, tingling, tremors, weakness, others Musculoskeletal: denies: back pain, gout, joint pain, joint swelling, muscle pain, muscle stiffness, neck pain, others Integumetry: denies: bruises, change in color, change in hair/nails, dryness, laceration, lesions, lumps, rash, wounds, others Allergic/Immunocompromised: denies: Difficulty Healing, Frequent Infections, Hi ves, Itching, others Hematologic/Lymphatic: denies: anemia, blood clots, easy bleeding, easy bruising, swollen glands, others Endocrine: denies: excessive hunger, excessive sweating, excessive thirst, excessive urination, flushing, intolerance to cold, intolerance to heat, unexplained weight gain, unexplained weight loss, others Psychiatric: denies: anxiety, bipolar disorder, depression, hopeless, panic disorder, schizophrenia, sleepless, suicidal, others All Other Systems: Reviewed and Negative Physical Exam General Appearance: Moderate Distress (Due to shortness a breath concerns. Patient appears to be in poor overall health and lean. Patient arrives with supplemental oxygen at 3 L.), Thin HEENT: Normal ENT Inspection, Pharynx Normal, TMs Normal Neck: Full Range of Motion, Non-Tender, Normal, Normal Inspection Respiratory: Other (Patchy rhonchi with areas of wheezing appreciated bilateral lung israel. Patient displays laborious breathing.) Cardiovascular: Bradycardia, No Edema, No JVD, No Murmur, No Gallop, Normal Peripheral Pulses Breast Exam: Deferred Gastrointestinal: No Organomegaly, Non Tender, No Pulsatile Mass, Normal Bowel Sounds, Soft Genitalia: Deferred Pelvic: Deferred Rectal: Deferred Extremities: Normal capillary refill, No pedal edema Neurologic: Alert Cerebellar Function: NOT DONE Reflexes: NOT DONE Skin: Dry, Normal Color, Warm Lymphatic: No Adenopathy Was a procedure done? Was a procedure done?: No Differential Dx Differential Diagnosis: Bronchitis, CHF, COPD, Myocardial infarction, Pneumonia, Pulmonary Embolism, Respiratory Distress, Sinusitis, Pharyngitis, URI X-Ray, Labs, Meds, VS Vital Signs Date Time Temp Pulse Resp B/P (MAP) Pulse Ox O2 Delivery O2 Flow Rate FiO2 06/20/25 17:23 56 06/20/25 16:55 97.4 57 20 150/79 98 97.4 Lab Test 06/20/25 18:18 06/20/25 17:22 Range/Units White Blood Count 6.1 4.4-10.8 10^3/uL Red Blood Count 5.60 4.5-5.90 10^6/uL Hemoglobin 11.6 L 13.5-17.5 g/dL Hematocrit 37.0 L 41.0-53.0 % Mean Corpuscular Volume 66.1 L 80.0-100.0 fL Mean Corpuscular Hemoglobin 20.7 L 28.0-32.0 pg Mean Corpuscular Hemoglobin Concent 31.3 L 32.0-36.0 g/dL Red Cell Distribution Width 20.6 H 11.8-14.3 % Platelet Count 265 140-450 10^3/uL Mean Platelet Volume 8.1 6.9-10.8 fL Neutrophils (%) (Auto) 76.6 37.0-80.0 % Lymphocytes (%) (Auto) 12.2 10.0-50.0 % Monocytes (%) (Auto) 10.4 0.0-12.0 % Eosinophils (%) (Auto) 0.2 0.0-7.0 % Basophils (%) (Auto) 0.6 0.0-2.0 % Neutrophils # (Auto) 4.7 1.6-8.6 10 ^3/uL Lymphocytes # (Auto) 0.7 0.4-5.4 10 ^3/uL Monocytes # (Auto) 0.6 0-1.3 10 ^3/uL Eosinophils # (Auto) 0 0-0.8 10 ^3/uL Basophils # (Auto) 0 0-0.2 10 ^3/uL Nucleated Red Blood Cells 0.1 % D-Dimer, Quantitative 6.47 H 0.0-0.49 mg/L FEU Sodium Level 144 136-145 mmol/L Potassium Level 3.0 L 3.5-5.1 mmol/L Chloride Level 102 98-107 mmol/L Carbon Dioxide Level 31 20-31 mmol/L Anion Gap 11 5-15 Blood Urea Nitrogen 10 9-23 mg/dL Creatinine 0.85 0.700-1.30 mg/dL Glomerular Filtration Rate Calc 92 >90 mL/min BUN/Creatinine Ratio 11.8 10.0-20.0 Serum Glucose 86 74-106 mg/dL Calcium Level 8.7 8.7-10.4 mg/dL Troponin I High Sensitivity 16 </=54 ng/L B-Type Natriuretic Peptide > 5000.00 0-100 pg/mL POC Glucose 93 70-106 mg/dl X-Ray, Labs, Meds, VS Comment All studies performed the ED were evaluated by me personally. Patient's laboratories revealed a hypokalemic state as well as a significant elevated BNP indicative of a concerning CHF exacerbation. EKG revealed a sinus rhythm with a rate of 56. Short ND interval was noted as well as nonspecific intraventricular conduction delay, borderline repolarization abnormality and artifact in leads two three and aVL. ND interval of 49 and QT interval of 450. Chest x-ray reveals some consolidation indicative of pneumonia. Nursing notified me that is the patient wanted to leave AMA. Nursing notified the patient that is he may have conditions that could be life-threatening, but the patient insisted on leaving and therefore, an AMA form was ascertain prior to the patient leaving the campus. Time of 1ST Reevaluation: 19:28 Reevaluation 1ST: Unchanged Consultation: PCP Patient Education/Counseling: Diagnosis, Treatment Family Education/Counseling: Diagnosis, Treatment SEPSIS Sepsis Screen Date sepsis recognized/suspect: Jun 20, 2025 Time Sepsis recognized/suspect: 1657 Recent Procedure: No On Antibiotic Therapy: No Respiratory Rate >20: No Heart Rate >90: No Temp<36 C (96.8 F) or >38.3 C: No SBP <90 or MAP <65 mmHG: No New Acute Mental Status Change: No Is the patient on CPAP, BIPAP,: No Physician Orders Urinalysis (06/20/25 17:10) Chest Two Views Routine (06/20/25 17:10) Heplock Iv (06/20/25 17:10) Oxygen (06/20/25 17:10) Electrocardigram (06/20/25 17:10) Troponin-I Hs (06/20/25 18:10) Troponin-I Hs (06/20/25 20:10) Vital Signs Date Time Temp Pulse Resp B/P (MAP) Pulse Ox O2 Delivery O2 Flow Rate FiO2 06/20/25 17:23 56 06/20/25 16:55 97.4 57 20 150/79 98 97.4 Laboratory Tests Test 06/20/25 18:18 White Blood Count 6.1 10^3/uL (4.4-10.8) Departure 1 Departure Time of Disposition: 19:28 Impression: Primary Impression: Pneumonia Additional Impression: Acute exacerbation of CHF (congestive heart failure) Disposition: LEFT AGAINST MEDICAL ADVICE Condition: Fair Discharged With: Self Critical Care Note Critical Care Time?: No Stability Stability form required: No Heart Score Heart Score: Heart Score Response (Comments) Value History Slightly Suspicious 0 EKG Repolarization Disturb 1 Age >65 2 Risk Factors 1 or 2 risk factors 1 Troponin Normal limit 0 Total 4 I personally scribed for JOSUÉ JIANG PAC ([email or web address]) on 06/20/25 at 17:17. Electronically submitted by Janae Sarabia ([email or web address]). I personally scribed for JOSUÉ JIANG PAC ([email or web address]) on 06/20/25 at 17:23. Electronically submitted by Janae Sarabia ([email or web address]). JOSUÉ JIANG PAC Jun 20, 2025 17:17
[2025-06-20 17:23] VITALS: PULSE 56
--- NOTE | 2025-06-20 18:09 | DVH ---
CHEST RADIOGRAPH Indication: Shortness of breath Technique: Frontal and lateral view of the chest was obtained Comparison: XY CHEST PORTABLE on DOS: 05/28/25, XY CHEST TWO VIEWS ROUTINE on DOS: 05/21/25, XY CHEST POR TABLE on DOS: 05/21/25, XY CHEST XRAY 1 VIEW on DOS: 05/20/25, XY CHEST PORTABLE on DOS: 05/19/25 FINDINGS: Lines and Tubes: None Lungs: Bibasilar opacities may reflect pneumonia or interstitial pulmonary edema. Pleura: Moderate bilateral pleural effusions. No pneumothorax. Cardiomediastinal contours: Unremarkable Bones: Unremarkable IMPRESSION: 1. Moderate bilateral pleural effusions. 2. Bibasilar opacities may reflect pneumonia or interstitial pulmonary edema.
[2025-06-20 18:35] LABS: Hematocrit 37.0 % (41.0-53.0); Hemoglobin 11.6 g/dL (13.5-17.5); Mean Corpuscular Hemoglobin 20.7 pg (28.0-32.0); Mean Corpuscular Volume 66.1 fL (80.0-100.0); Nucleated Red Blood Cells % 0.1 %
[2025-06-20 18:45] LABS: Chloride 102 mmol/L (98-107); Sodium 144 mmol/L (136-145)
[2025-06-20 18:46] LABS: Anion Gap 11 (5-15); Carbon Dioxide 31 mmol/L (20-31)
[2025-06-20 18:51] LABS: BUN/Creatinine Ratio 11.8 (10.0-20.0); Blood Urea Nitrogen 10 mg/dL (9-23); Glucose 86 mg/dL (74-106)
[2025-06-20 18:52] LABS: Calcium 8.7 mg/dL (8.7-10.4); Potassium 3.0 mmol/L (3.5-5.1)
--- NOTE | 2025-06-20 19:37 | ECG ---
[facility] Test Date: 2025-06-20 Test Time: 17:23:17 Pat Name: TIM NULL Department: Room: Gender: M Security Orderly: ER : 1950 Requested By: JOSUÉ JIANG Order Number: [id number] Reading MD: Hardeep Tate Measurements Intervals [place] Rate: 56 P: 110 GA: 49 QRS: 61 QRSD: 116 T: 0 QT: 450 QTc: 435 Interpretive Statements Sinus rhythm Short GA interval Nonspecific intraventricular conduction delay Borderline repolarization abnormality Artifact in lead(s) I,III,aVL Electronically Signed On 06-20-2025 22:23:25 PDT by Hardeep Tate Please click the below link to view image of tracing.
== END 2025-06-20 19:58 | disposition left against medical advice (07) ==
LOC: ER 16:54
DX: J18.9 Pneumonia, unspecified organism (principal); I11.0 Hypertensive heart disease with heart failure; I50.9 Heart failure, unspecified; E11.9 Type 2 diabetes mellitus without complications; E78.5 Hyperlipidemia, unspecified; J44.0 Chronic obstructive pulmonary disease with (acute) lower respiratory infection; Z99.81 Dependence on supplemental oxygen
CPT/HCPCS: 36415; 71046; 80048; 82947; 82962; 83880; 84484; 85025; 85379; 93005

== ENCOUNTER 2025-06-26 15:32 | Inpatient (IN) | payer MEDICARE, MEDICAID ==
[~2025-06-26] VITALS: Ht 195.6 cm; Wt 68.6 kg
[~2025-06-26 15:32] MED LIST changes: +AMIO200T13 PO; +AMLO1TAB23 PO; +FURO40TA4 PO; +LOS25T PO
--- NOTE | 2025-06-26 16:06 | ED.PDOC ---
History of Present Illness HPI Comments 74M BIBA w/ prior MHx of CHF, COPD, High lipids, HTN and kieran c/c of CP. EMS report the pt having on/off CP while he was laying down 2 days ago. The CP is substernal non-radiating pressure like. The CP was initially an 8/10 but was given 3 nitro and 324mg of baby aspirin which brought the pain down to a 5/10 which is current. Denies chills, fever, N/V/D, SOB. Denies any other associated symptom's, modifiers, or recent injuries or sick contact at this time. Chief Complaint: Chest Pain Time Seen by MD: 16:00 Primary Care Provider: NONE Reviewed Notes: Nurses Notes, Medications, Allergies Allergies: Coded Allergies: NO KNOWN ALLERGIES (Unverified , 01/11/25) Home Meds Active Scripts Ciprofloxacin Hcl (Ciprofloxacin Hcl) 500 Mg Tab, 1 TAB PO BID for 3 Days, #6 TAB Prov:[facility] 05/31/25 Amiodarone Hcl (Amiodarone Hcl) 200 Mg Tab, 1 TAB PO BID for 30 Days, #60 TAB 3 Refills [facility] 05/31/25 Empagliflozin (Jardiance) 10 Mg Tab, 10 MG PO DAILY for 30 Days, #30 TAB 3 Refills [facility] 05/31/25 Metoprolol Succinate (Metoprolol Succinate Er) 100 Mg Tab, 50 MG PO DAILY for 30 Days, #15 TAB 3 Refills [facility] 05/31/25 Spironolactone (Spironolactone) 25 Mg Tab, 2 TAB PO BID for 30 Days, #120 TAB 3 Refills Prov:[facility] 05/31/25 Sacubitril-Valsartan (Entresto 24-26 mg) 1 Tab Tab, 1 TAB PO BID for 30 Days, #60 TAB 3 Refills Prov[facility] 05/31/25 Atorvastatin Calcium (ATORVASTATIN CALCIUM) 40 Mg Tab, 1 TAB PO HS for 30 Days, #30 TAB 3 Refills [facility] 05/31/25 Aspirin (Aspirin Low Dose) 81 Mg Chw, 1 TAB PO DAILY for 30 Days, #30 TAB 3 Refi lls Prov:[facility] 05/31/25 Empagliflozin (Jardiance) 10 Mg Tab, 10 MG PO DAILY for 30 Days, #30 TAB Prov:[facility] 01/29/25 Furosemide (Lasix) 40 Mg Tab, 40 MG PO DAILY for 30 Days, #30 TAB Prov:[facility] 01/29/25 Metoprolol Succinate (Metoprolol Succinate Er) 25 Mg Tab, 25 MG PO DAILY for 30 Days, #30 TAB Prov:[facility] 01/29/25 Spironolactone (Aldactone) 25 Mg Tab, 25 MG PO DAILY for 30 Days, #30 TAB Prov:[facility] 01/29/25 Sacubitril-Valsartan (Entresto 24-26 mg) 1 Tab Tab, 1 TAB PO BID for 30 Days, #60 TAB Prov:[facility] 01/29/25 Ergocalciferol (VITAMIN D 44938 UNIT) 50,000 [place], [address] UNIT PO Q7D for 60 Days, #8 CAP Prov:[facility] 01/29/25 Docusate Sodium (Docusate Sodium) 100 Mg Cap, 100 MG PO BIDPRN PRN for 30 Days, #60 CAP Prov:[facility] 01/29/25 Atorvastatin Calcium (ATORVASTATIN CALCIUM) 20 Mg Tab, 40 MG PO HS for 30 Days, #30 TAB Prov:[facility] 01/29/25 Aspirin (Aspirin Low Dose) 81 Mg Tab, 81 MG PO DAILY for 30 Days, #30 TAB Prov:[facility] 01/29/25 Ondansetron Odt 4MG Tab (ZOFRAN PO) 4 Mg Tb, 4 MG PO QID PRN, #30 TAB ODT TAB-DISSOLVE IN MOUTH, THEN SWALLOW Prov:WILFRED CALL MD 01/14/25 Tramadol HCl (Tramadol HCl) 50 Mg Tab, 50 MG PO QID PRN, #40 TAB Prov:WILFRED CALL MD 01/14/25 Information Source: Patient Mode of Arrival: EMS Severity: Moderate Timing: Hours Duration: Since onset, Hours Prehospital treatment: None Past Medical History PAST MEDICAL HISTORY: CHF, COPD, DM, High Lipids, HTN, Liver Surgical History: PTCA Family History Family History: Reviewed,noncontributory to illness, Unknown Social History Smoker: Non-Smoker, Quit Greater Than 1 Year Alcohol: Denies ETOH Use Drugs: Denies Drug Use Lives In: Home Constitutional: denies: chills, diaphoresis, fatigue, fever, malaise, sweats, weakness, others EENTM: denies: blurred vision, double vision, ear bleeding, ear discharge, ear drainage, ear pain, ear ringing, eye pain, eye redness, hearing loss, mouth pain, mouth swelling, nasal discharge, nose bleeding, nose congestion, nose pain, photophobia, tearing, throat pain, throat swelling, voice changes, others Respiratory: denies: cough, hemoptysis, orthopnea, SOB at rest, shortness of breath, SOB with excertion, stridor, wheezing, others Cardiovascular: reports: chest pain; denies: dizzy spells, diaphoresis, Dyspnea on exertion, edema, irregular heart beat, left arm pain, lightheadedness, palpitations, PND, syncope, others Gastrointestinal: denies: abdomen distended, abdominal pain, blood streaked bowels, constipated, diarrhea, dysphagia, difficulty swallowing, hematemesis, melena, nausea, poor appetite, poor fluid intake, rectal bleeding, rectal pain, vomiting, others Genitourinary: denies: burning, dysuria, flank pain, frequency, hematuria, incontinence, penile discharge, penile sore, pain, testicle pain, testicle swelling, urgency, others Neurological: denies: dizziness, fainting, headache, left sided numbness, left sided weakness, numbness, paresthesia, pre-existing deficit, right sided numbness, right sided weakness, seizure, speech problems, tingling, tremors, weakness, others Musculoskeletal: denies: back pain, gout, joint pain, joint swelling, muscle pain, muscle stiffness, neck pain, others Integumetry: denies: bruises, change in color, change in hair/nails, dryness, laceration, lesions, lumps, rash, wounds, others Allergic/Immunocompromised: denies: Difficulty Healing, Frequent Infections, Hives, Itching, others Hematologic/Lymphatic: denies: anemia, blood clots, easy bleeding, easy bruising, swollen glands, others Endocrine: denies: excessive hunger, excessive sweating, excessive thirst, excessive urination, flushing, intolerance to cold, intolerance to heat, unexplained weight gain, unexplained weight loss, others Psychiatric: denies: anxiety, bipolar disorder, depression, hopeless, panic disorder, schizophrenia, sleepless, suicidal, others All Other Systems: Reviewed and Negative Physical Exam General Appearance: No Apparent Distress, Normal HEENT: Normal ENT Inspection, Pharynx Normal, TMs Normal Neck: Full Range of Motion, Non-Tender, Normal, Normal Inspection Respiratory: Chest Non-Tender, Lungs Clear, No Accessory Muscle Use, No Respiratory Distress, Normal Breath Sounds Cardiovascular: No Edema, No JVD, No Murmur, No Gallop, Normal Peripheral Pulses, Regular Rate/Rhythm Breast Exam: Deferred Gastrointestinal: No Organomegaly, Non Tender, No Pulsatile Mass, Normal Bowel Sounds, Soft Genitalia: Deferred Pelvic: Deferred Rectal: Deferred Extremities: No calf tenderness, Normal capillary refill, Normal inspection, Normal range of motion, Non-tender, No pedal edema Musculoskeletal : Apperance: Normal Neurologic: Alert, sales agent trading stamps II-XII nml as Tested, No Motor Deficits, Normal Affect, Normal Mood, No Sensory Deficits Cerebellar Function: Normal Reflexes: Normal Skin: Dry, Normal Color, Warm Lymphatic: No Adenopathy Was a procedure done? Was a procedure done?: No Differential Dx Considerations may include: PE, CT, pleural effusion, CHF exacerbation X-Ray, Labs, Meds, VS Vital Signs Date Time Temp Pulse Resp B/P (MAP) Pulse Ox O2 Delivery O2 Flow Rate FiO2 06/26/25 20:14 58 16 155/71 06/26/25 19:57 98.1 58 16 155/71 (99) 98 98.1 06/26/25 19:57 58 16 98 Nasal Cannula* 3 32 06/26/25 18:42 60 06/26/25 16:43 58 06/26/25 15:40 64 06/26/25 15:37 98.8 67 16 150/82 96 98.8 Lab Test 06/26/25 19:31 06/26/25 17:20 06/26/25 16:24 Range/Units Troponin I High Sensitivity 17 19 19 </=54 ng/L White Blood Count 6.1 4.4-10.8 10^3/uL Red Blood Count 5.08 4.5-5.90 10^6/uL Hemoglobin 10.5 L 13.5-17.5 g/dL Hematocrit 33.1 #L 41.0-53.0 % Mean Corpuscular Volume 65.1 L 80.0-100.0 fL Mean Corpuscular Hemoglobin 20.7 L 28.0-32.0 pg Mean Corpuscular Hemoglobin Concent 31.7 L 32.0-36.0 g/dL Red Cell Distribution Width 20.3 H 11.8-14.3 % Platelet Count 315 140-450 10^3/uL Mean Platelet Volume 6.8 L 6.9-10.8 fL Neutrophils (%) (Auto) 80.8 H 37.0-80.0 % Lymphocytes (%) (Auto) 7.9 L 10.0-50.0 % Monocytes (%) (Auto) 10.4 0.0-12.0 % Eosinophils (%) (Auto) 0.2 0.0-7.0 % Basophils (%) (Auto) 0.7 0.0-2.0 % Neutrophils # (Auto) 4.9 1.6-8.6 10 ^3/uL Lymphocytes # (Auto) 0.5 0.4-5.4 10 ^3/uL Monocytes # (Auto) 0.6 0-1.3 10 ^3/uL Eosinophils # (Auto) 0 0-0.8 10 ^3/uL Basophils # (Auto) 0 0-0.2 10 ^3/uL Nucleated Red Blood Cells 0.2 % Platelet Estimate Adequate Hypochromasia (manual) Marked Poikilocytosis (manual) Slight Anisocytosis (manual) Slight Microcytosis Marked Target Cells Few Sodium Level 146 H 136-145 mmol/L Potassium Level 3.1 L 3.5-5.1 mmol/L Chloride Level 101 98-107 mmol/L Carbon Dioxide Level 36 H 20-31 mmol/L Anion Gap 9 5-15 Blood Urea Nitrogen 12 9-23 mg/dL Creatinine 0.96 0.700-1.30 mg/dL Glomerular Filtration Rate Calc 83 >90 mL/min BUN/Creatinine Ratio 12.5 10.0-20.0 Serum Glucose 90 74-106 mg/dL Calcium Level 8.8 8.7-10.4 mg/dL Total Bilirubin 1.4 H 0.2-1.0 mg/dL Aspartate Amino Transferase (AST) 85 H 13-40 U/L Alanine Aminotransferase (ALT) 59 H 7-40 U/L Alkaline Phosphatase 1084 H 46-116 U/L Total Protein 7.6 5.7-8.2 g/dL Albumin 3.3 3.2-4.8 g/dL Current Medications Medications (Trade) Dose Ordered Sig/Mikki Route Start Time Stop Time Status Last Admin Morphine Sulfate 4 mg ONCE ONCE IV 06/26/25 20:15 06/26/25 20:16 DC 06/26/25 20:14 Ondansetron HCl (Zofran) 4 mg ONCE ONCE IV 06/26/25 20:15 06/26/25 20:16 DC 06/26/25 20:13 X-Ray, Labs, Meds, VS Comment Upon 2nd assessment, patient states he has been feeling some increasing edi rtness breath over the last 3-4 days. Sinus present with the patient, he has noticed that patient has been more sluggish and short of breath. X-ray shows bilateral pleural effusions Patient will be admitted for pleural effusion with shortness of breath and chest pain rule out ACS Patient on 4 L nasal cannula Patient denies any chest pain currently Time of 1ST Reevaluation: 16:30 Reevaluation 1ST: Unchanged Patient Education/Counseling: Diagnosis, Treatment, Prognosis Family Education/Counseling: No Family Present SEPSIS Sepsis Screen Date sepsis recognized/suspect: Jun 26, 2025 Time Sepsis recognized/suspect: 1537 Recent Procedure: No On Antibiotic Therapy: No Respiratory Rate >20: No Heart Rate >90: No Temp<36 C (96.8 F) or >38.3 C: No SBP <90 or MAP <65 mmHG: No New Acute Mental Status Change: No Is the patient on CPAP, BIPAP,: No Physician Orders Urinalysis (06/26/25 15:48) Chest Xray 1 View (06/26/25 15:48) Electrocardigram (06/26/25 15:48) Electrocardigram (06/26/25 16:48) Electrocardigram (06/26/25 18:48) Vital Signs Date Time Temp Pulse Resp B/P (MAP) Pulse Ox O2 Delivery O2 Flow Rate FiO2 06/26/25 20:14 58 16 155/71 06/26/25 19:57 98.1 58 16 155/71 (99) 98 98.1 06/26/25 19:57 58 16 98 Nasal Cannula* 3 32 06/26/25 18:42 60 06/26/25 16:43 58 06/26/25 15:40 64 06/26/25 15:37 98.8 67 16 150/82 96 98.8 Laboratory Tests Test 06/26/25 16:24 White Blood Count 6.1 10^3/uL (4.4-10.8) Medications Medications Dose Ordered Sig/Mikki Route Start Time Stop Time Status Last Admin Dose Admin Morphine Sulfate 4 mg ONCE ONCE IV 06/26/25 20:15 06/26/25 20:16 DC 06/26/25 20:14 Ondansetron HCl 4 mg ONCE ONCE IV 06/26/25 20:15 06/26/25 20:16 DC 06/26/25 20:13 Departure 1 Departure Time of Disposition: 20:55 Impression: Primary Impression: CHF exacerbation Qualified Codes: I50.23 - Acute on chronic systolic (congestive) heart failure Additional Impressions: Liver cirrhosis Qualified Codes: K74.60 - Unspecified cirrhosis of liver Small pleural effusion Disposition: ADMITTED INPATIENT Condition: Stable Critical Care Note Critical Care Time?: No Stability Stability form required: No Heart Score Heart Score: Heart Score Response (Comments) Value History Highly Suspicious 2 EKG Normal 0 Age >65 2 Risk Factors >3 or Hx ASHD 2 Troponin Normal limit 0 Total 6 I personally scribed for CORY POTTER ([email or web address]) on 06/26/25 at 16:06. Electronically submitted by Stanley Branch ([email or web address]). CORY POTTER Jun 26, 2025 16:06
--- NOTE | 2025-06-26 16:17 | DVH ---
EXAM: XY CHEST XRAY 1 VIEW HISTORY: cp COMPARISON: XY CHEST PORTABLE on DOS: 05/28/25, XY CHEST PORTABLE on DOS: 05/21/25, XY CHEST XRAY 1 VIEW on DOS: 05/20/25, XY CHEST PORTABLE on DOS: 05/19/25, XY CHEST XRAY 1 VIEW on DOS: 05/18/25 TECHNIQUE: Portable AP view of the chest was performed. FINDINGS: There are bilateral pleural effusions obscuring the bilateral hemidiaphragms and heart borders, large r on the left. No pneumothorax. Emphysematous changes are better characterized on prior CT scan. IMPRESSION: 1. Bilateral pleural effusions and/or underlying lung consolidation, larger on the left, obscuring th e hemidiaphragms and heart borders. This appearance is stable on the right and Increased on the left compared with chest x-ray dated 06/20/2025. 2. Emphysema.
[2025-06-26 16:40] LABS: Hemoglobin 10.5 g/dL (13.5-17.5)
[2025-06-26 16:42] LABS: Hematocrit 33.1 % (41.0-53.0); Mean Corpuscular Hemoglobin 20.7 pg (28.0-32.0); Mean Corpuscular Volume 65.1 fL (80.0-100.0); Nucleated Red Blood Cells % 0.2 %
[2025-06-26 16:56] LABS: Anion Gap 9 (5-15); BUN/Creatinine Ratio 12.5 (10.0-20.0); Blood Urea Nitrogen 12 mg/dL (9-23); Calcium 8.8 mg/dL (8.7-10.4); Chloride 101 mmol/L (98-107); Glucose 90 mg/dL (74-106); Total Protein 7.6 g/dL (5.7-8.2)
[2025-06-26 16:57] LABS: Albumin 3.3 g/dL (3.2-4.8)
[2025-06-26 16:58] LABS: Alanine Aminotransferase 59 U/L (7-40); Bilirubin, Total 1.4 mg/dL (0.2-1.0); Carbon Dioxide 36 mmol/L (20-31); Potassium 3.1 mmol/L (3.5-5.1); Sodium 146 mmol/L (136-145)
[2025-06-26 17:04] LABS: Alkaline Phosphatase 1084 U/L (46-116)
[2025-06-26 18:15] LABS: Anisocytosis Slight
[2025-06-26 19:57] VITALS: PULSE 58; RESP 16; O2SAT 98
[2025-06-26] MEDS: ONDANSETRON HCL 4 MG/2 ML VIAL IV ONE (20:13)
[2025-06-26] MEDS: MORPHINE SULFATE 4 MG/ML SYR/VIAL IV ONE (20:14)
[2025-06-26] MEDS ORDERED: FUROSEMIDE 20 MG/2 ML VIAL IV SCH (22:30)
[2025-06-26 23:31] LABS: Magnesium 2.0 mg/dL (1.6-2.6)
[2025-06-26] MEDS: FUROSEMIDE 20 MG/2 ML VIAL IV SCH (23:47)
--- NOTE | 2025-06-26 23:53 | ECG ---
[facility] Test Date: 2025-06-26 Test Time: 23:51:42 Pat Name: TIM NULL Department: [facility] ED Room: 0289T Gender: M Marketing Strategist: EDWARD : 1950 Requested By: CORY POTTER Order Number: [id number] Reading MD: Hardeep Tate Measurements Intervals [place] Rate: 63 P: 30 [place]: 205 QRS: -14 QRSD: 97 T: 103 QT: 539 QTc: 552 Interpretive Statements Sinus rhythm Probable left ventricular hypertrophy Anterior Q waves, possibly due to LVH Nonspecific T abnormalities, lateral leads Prolonged QT interval Baseline wander in lead(s) V2,V4 Electronically Signed On 06-29-2025 20:35:30 PDT by aHrdeep Tate Please click the below link to view image of tracing.
[2025-06-27] MEDS ORDERED: MORPHINE SULFATE INJ 2 MG/ml SYRG IV PRN
[2025-06-27] MEDS: POTASSIUM CHL 20 Meq TABLET PO ONE (00:35)
[2025-06-27] MEDS: ENOXAPARIN SOD 100 MG/1 ML SYRINGE SC ONE (00:35)
--- NOTE | 2025-06-27 00:55 | DVH ---
INDICATION: Eval liver TECHNIQUE: Multiple real-time sonographic images were obtained of the right upper quadrant. COMPARISON: CT chest/abdomen/pelvis 05/18/2025 FINDINGS: Hepatic echogenicity is increased with surface nodularity. The liver measures 18.6 cm. The common duct is not visualized. The gallbladder is nondistended without evidence of stone or sludge. Pericholecystic fluid. Wall thic kness measures 4.4 mm. Reportedly negative sonographic Salvador's sign. The right kidney measures 10.7 cm. No visualized hydronephrosis, stone, or lesion. The pancreas is not well visualized due to overlying bowel gas. No visualized ascites. IMPRESSION: 1. Advanced hepatic fibrosis or cirrhosis. 2. Gallbladder wall thickening and pericholecystic fluid likely secondary to hepatocellular dysfuncti on.
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
[2025-06-27] MEDS ORDERED: DEXTROSE (50%) 50ML SYRG IV PRN (05:00)
[2025-06-27 05:13] LABS: Cannabinoid Screen, Urine Neg (NEGATIVE)
[2025-06-27 05:47] LABS: Amphetamine Screen, Urine Neg (NEGATIVE); Barbiturate Scree,Urine Neg (NEGATIVE); Benzodiazephine Screen, Urine Neg (NEGATIVE); Cocaine Screen, Urine Neg (NEGATIVE); Opiate Scree,Urine Pos (NEGATIVE); Phencyclidine Screen, Urine Neg (NEGATIVE)
[2025-06-27 05:55] LABS: Nucleated Red Blood Cells % 0.1 %
[2025-06-27 05:58] LABS: Hematocrit 36.1 % (41.0-53.0); Hemoglobin 11.1 g/dL (13.5-17.5); Mean Corpuscular Hemoglobin 20.9 pg (28.0-32.0); Mean Corpuscular Volume 67.8 fL (80.0-100.0)
[2025-06-27 06:09] LABS: Free T4 (Free Thyroxine) 1.38 ng/dL (0.89-1.76)
[2025-06-27 06:11] LABS: Albumin 3.3 g/dL (3.2-4.8); Anion Gap 11 (5-15); BUN/Creatinine Ratio 10.5 (10.0-20.0); Blood Urea Nitrogen 10 mg/dL (9-23); Calcium 8.8 mg/dL (8.7-10.4); Chloride 102 mmol/L (98-107); Glucose 87 mg/dL (74-106); Total Protein 7.6 g/dL (5.7-8.2)
[2025-06-27 06:18] LABS: Carbon Dioxide 33 mmol/L (20-31); Potassium 3.0 mmol/L (3.5-5.1); Sodium 146 mmol/L (136-145)
[2025-06-27 06:19] LABS: Alanine Aminotransferase 61 U/L (7-40); Alkaline Phosphatase 1124 U/L (46-116); Bilirubin, Total 1.4 mg/dL (0.2-1.0)
[2025-06-27] MEDS: InsuLIN REG 1unit/0.01ml Soln (100units/ml) SC SCH (06:48)
[2025-06-27] MEDS: ACCU-CHEK COMFORT CURVE STRIP VI SCH (06:48)
[2025-06-27 08:00] VITALS: PULSE 64; RESP 14; O2SAT 100
[2025-06-27] MEDS: POTASSIUM EFFERVESENT TAB 25 MEQ PO ONE (08:54)
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
[2025-06-27] MEDS ORDERED: METOPROLOL SUCCINATE XL 50 MG TAB PO SCH (10:00)
[2025-06-27] MEDS ORDERED: ENOXAPARIN SOD 40 MG/0.4 ML SYRINGE SC SCH (10:00)
[2025-06-27] MEDS ORDERED: AMIODARONE HCL 200 MG TAB PO SCH (10:00)
[2025-06-27] MEDS ORDERED: SPIRONOLACTONE 25 MG TAB PO SCH (10:00)
--- NOTE | 2025-06-27 10:26 | DVH ---
Bilateral Chest Sonogram Date: 06/27/2025 08:24 AM Clinical history: Evaluate thoracentesis Findings: Limited sonographic evaluation of the right and left chest was performed to localize and lexi fluid f or thoracentesis. Moderate bilateral pleural effusions IMPRESSION: Moderate bilateral pleural effusions
[2025-06-27] MEDS: PANTOPRAZOLE 40 MG/10 ML VIAL INJ IV SCH (10:46)
[2025-06-27] MEDS: EMPAGLIFLOZIN 10 MG TAB PO SCH (10:48)
[2025-06-27] MEDS: SPIRONOLACTONE 25 MG TAB PO SCH (10:48)
[2025-06-27] MEDS: ASPirin-EC 81 mg tab PO SCH (10:48)
[2025-06-27] MEDS: CARVEDILOL 3.125 MG TAB PO SCH (10:48)
[2025-06-27] MEDS: SACUBITRIL-VALSARTAN 24mg/26mg TAB PO SCH (10:49)
[2025-06-27] MEDS: AMIODARONE HCL 200 MG TAB PO SCH (10:49)
[2025-06-27] MEDS: ENOXAPARIN SOD 100 MG/1 ML SYRINGE SC SCH (10:49)
[2025-06-27 12:10] LABS: Iron 30.0 ug/dL (65-175); Total Iron Binding Capacity 239.0 ug/dL (250-425)
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
[2025-06-27 15:29] VITALS: BP 109/69; PULSE 48; RESP 12; TEMP 97.7; O2SAT 97
[2025-06-27 15:59] VITALS: PULSE 48; RESP 14; O2SAT 97
--- NOTE | 2025-06-27 16:48 | DVH ---
CLINICAL HISTORY: SOB TECHNIQUE: Color and duplex doppler imagine of the bilateral lower extremity veins was performed. Ves lydia compression and augmentation if possible was also performed. COMPARISON: US BI LAT UPPER DVT on DOS: 06/27/25, US BI LAT UPPER DVT on DOS: 05/17/25, US US GUIDED VA SCULAR ACCESS on DOS: 05/14/25, US BILAT LOWER DVT on DOS: 01/24/25 FINDINGS: Right Lower Extremity: Right common femoral vein: Normal compressibility and flow. Right superficial femoral vein: Normal compressibility and flow. Right popliteal vein: Normal compressibility and flow. Proximal calf veins demonstrate flow. Left Lower Extremity: Left common femoral vein: Normal compressibility and flow. Left superficial femoral vein: Normal compressibility and flow. Left popliteal vein: Normal compressibility and flow. Proximal calf veins demonstrate flow. IMPRESSION: NO SONOGRAPHIC EVIDENCE FOR DEEP VENOUS THROMBOSIS IN THE BILATERAL LOWER EXTREMITY VEINS.
--- NOTE | 2025-06-27 16:49 | DVH ---
CLINICAL HISTORY: ELEVATED D DIMER TECHNIQUE: Color and duplex doppler imagine of the bilateral upper extremity veins and subclavian vei ns was performed. Vessel compression if possible was also performed. COMPARISON: US BILAT LOWER DVT on DOS: 06/27/25, US BI LAT UPPER DVT on DOS: 05/17/25, US US GUIDED VAS CULAR ACCESS on DOS: 05/14/25, US BILAT LOWER DVT on DOS: 01/24/25 FINDINGS: The bilateral internal jugular, basilic, cephalic, axillary, and paired brachial veins are patent and demonstrate normal compressibility and flow. The radial and ulnar veins are patent bilaterally. The subclavian veins bilaterally are patent. IMPRESSION: NO SONOGRAPHIC EVIDENCE FOR DEEP VENOUS THROMBOSIS IN THE BILATERAL UPPER EXTREMITY VEINS.
[2025-06-27 17:06] VITALS: BP 109/69; PULSE 48; RESP 18; TEMP 97.7; O2SAT 98
[2025-06-27] MEDS: HYDROcodone-ACET 5/325MG TAB PO PRN (18:21)
--- NOTE | 2025-06-27 19:10 | DVHSR ---
APPROVED REPORT EXAM: Two-dimensional and M-mode echocardiogram with Doppler and color Doppler. Blood Pressure: 139/76 mmHg INDICATION Chest Pain RISK FACTORS Height: 75, Weight: 190 DIMENSIONS LVDd5.6 (3.8-5.7cm)LA (2D)5.2 (1.9-4.0cm)Aortic Root3.5 (2.0-3.7cm) LVDs5.5 (2.5-4.0cm)LA (MM) (1.9-4.0cm)Aortic Cusp Exc1.8 (1.5-2.0cm) EF (%) 5.0 (55-70%)Rt. Atrium5.0 (1.9-4.0cm)Asc. Aorta cm IVSd1.0 (0.7-1.1cm)RV (D) (1.8-2.4cm) PWd0.9 (0.7-1.1cm) Mitral Valve MitralMitral Stenosis E wave0.95m/sMV Mean GR.mmHg A wave0.33m/sMV Peak GR.69mmHg E/A ratio2.92D MVAcm2 DECEL [id number] 1/2 Rmhd56my IVRTmsDop MVA3.41cm2 Aortic Valve Aortic ValveAortic Stenosis V10.59m/Any Mean GR.3mmHg V21.11m/Any Peak GR.5mmHg LVOT Diameter2.4 (1.8-2.4cm)Doppler AVA2.40cm2 AI P 1/2 Nxml229.00ms Tricuspid Valve TR Velocity3.07m/s [id number] Other Information Technically limited study due to patient sitting straight up during exam. Conclusion Four-chamber dilatation was seen. Left ventricle: Left ventricle was dilated with significantly reduced systolic function. LVEF was 5- 10%. Diffuse hypokinesis of left ventricle was seen. Restrictive filling of left ventricular diasto lic function was observed. Right ventricle was dilated with reduced systolic function. Both atria were dilated. Aortic valve was trileaflet. There was trace aortic insufficiency. There was no aortic stenosis. T here was [id number] mitral regurgitation. There was moderate tricuspid regurgitation. Pulmona ry valve was not well visualized. Right ventricular systolic pressure was assessed around 70 mm Hg. There was no pericardial effusion. Left pleural effusion was seen.
[2025-06-27 20:00] VITALS: PULSE 51
[2025-06-27 21:00] VITALS: BP 120/67; PULSE 59; RESP 17; TEMP 97.1; O2SAT 78
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
[2025-06-27 21:57] LABS: Potassium 3.8 mmol/L (3.5-5.1)
[2025-06-27 22:04] LABS: Magnesium 2.0 mg/dL (1.6-2.6)
[2025-06-27] MEDS: ATORVASTATIN 20 MG TAB PO SCH (22:43)
[2025-06-28] VITALS (9 sets, daily range): BP systolic 94–118; BP diastolic 48–80; PULSE 45–90; RESP 15–18; TEMP 96.1–97.6; O2SAT 91–100
--- NOTE | 2025-06-28 06:56 | DVHNC2 ---
ONDINA SHAFER RESIDENT 06/28/25 0656: Procedure - Ultrasound-guided LEFT thoracentesis procedure note: Physician: Dr Mary Lou Lambert Asst: Dr Shafer RN Summer Time out time: 1731 pm Patient medications and allergies reviewed. The risks and benefits of the procedure and the sedation options and risk were discussed with the patient. All questions were answered and informed consent was obtained. Patient identification and proposed procedure were verified prior to the procedure by the physician, and a nurse in the patient's room. The heart rate, respiratory rate, oxygen saturations, blood pressure, adequacy of pulmonary ventilation, and response to care were monitored throughout the procedure. The physical status of the patient was reassessed after the procedure. Date: 06/27/2025 Consent: Consent was obtained from the patient. Indication, risks, and benefits were explained at length. Procedure summary: A time-out was performed and a chest x-ray was reviewed prior to procedure. The appropriate site was confirmed and marked. My hands were washed immediately prior to the procedure, I wore a surgical cap, mask with protective eyewear, sterile gown and sterile gloves throughout the procedure. The patient was prepped and draped in a sterile manner using chlorhexidine scrub after the appropriate level was percussed and confirmed by ultrasound. 1% lidocaine was used to anesthetize the skin, subcutaneous tissue, superior aspect of the rib periosteum and parietal pleura. A finder needle was then introduced over the superior aspect of the rib to locate the pleural fluid; ALFONSO colored fluid was aspirated. Thoracentesis needle was then introduced through the skin incision into the pleural space using negative aspiration pressure. The thoracentesis catheter was then threaded without difficulty. About 1100 mL's of ALFONSO colored fluid were removed without difficulty. The catheter was then removed. No immediate complications were noted during the procedure. A postprocedure chest x-ray is pending at the time of this note. No pleural fluid was sent for cultures and cytology. Estimated blood loss is less than 5 mL's. ENMANUEL LAMBERT MD 07/02/25 1101: Procedure - I was present for the entire procedure. ONDINA SHAFER Jun 28, 2025 06:56 ENMANUEL LAMBERT MD Jul 02, 2025 11:01
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
[2025-06-28 07:38] LABS: Hemoglobin 9.5 g/dL (13.5-17.5)
[2025-06-28 07:40] LABS: Hematocrit 30.6 % (41.0-53.0); Mean Corpuscular Hemoglobin 20.3 pg (28.0-32.0); Mean Corpuscular Volume 65.8 fL (80.0-100.0); Nucleated Red Blood Cells % 0.2 %
[2025-06-28 07:47] LABS: Anion Gap 8 (5-15); BUN/Creatinine Ratio 20.5 (10.0-20.0); Blood Urea Nitrogen 18 mg/dL (9-23); Chloride 100 mmol/L (98-107); Potassium 3.8 mmol/L (3.5-5.1); Sodium 143 mmol/L (136-145); Total Protein 5.9 g/dL (5.7-8.2)
[2025-06-28 07:48] LABS: Alanine Aminotransferase 44 U/L (7-40); Albumin 2.6 g/dL (3.2-4.8); Alkaline Phosphatase 915 U/L (46-116); Bilirubin, Total 1.0 mg/dL (0.2-1.0); Calcium 8.3 mg/dL (8.7-10.4); Carbon Dioxide 35 mmol/L (20-31); Glucose 68 mg/dL (74-106)
--- NOTE | 2025-06-28 09:50 | DVH ---
EXAM: XY CHEST XRAY 1 VIEW Indication: SOB Technique: Portable AP view of the chest was performed. Comparison: XY CHEST XRAY 1 VIEW on DOS: 06/26/25, XY CHEST TWO VIEWS ROUTINE on DOS: 06/20/25, XY CHES T PORTABLE on DOS: 05/28/25, XY CHEST TWO VIEWS ROUTINE on DOS: 05/21/25, XY CHEST PORTABLE on DOS: 5 FINDINGS: Lines and Tubes: None Lungs: Moderate bilateral pleural effusions with bibasilar opacities. No pneumothorax. Cardiomediastinal contours: Unremarkable. Atherosclerotic vascular calcifications of the thoracic ao rta are noted. Bones: No acute osseous abnormality. IMPRESSION: Moderate bilateral pleural effusions.
[2025-06-28] MEDS: CARVEDILOL 3.125 MG TAB PO SCH (10:22)
[2025-06-28] MEDS: FUROSEMIDE 40 MG/4 ML VIAL IV ONE (12:00)
--- NOTE | 2025-06-28 15:58 | DVHPNRES ---
Progress Note Date Seen: Jun 28, 2025 Resident Creating Document: CONNOR TORRE Medical Necessity Reason Pt with a Central, PICC or Fol: No Subjective Review of Systems Patient is a 74-year-old male with past medical history of HFrEF with EF 10%, ischemic cardiomyopathy, CAD, type 2 diabetes mellitus, alcoholic liver cirrhosis, liver cancer and CBD adenoma s/p biliary stenting, hypertension, COPD, hyperlipidemia, presented to [facility] ED with complaint of chest pain and shortness of breath. He states he began to have retrosternal chest pain 3 days ago insert changing between sharp and pressure, 8/10, non- radiating, aggravated with exertion, with no relieving factors associated with shortness of breath, however the patient states he is always short of breath and requires home O2 3-5L. Additionally refers swelling in lower extremities. He states he is complaint with his medications however does not adhere to a low salt diet or fluid restriction, and due celebrations at his home may have faltered on his medication adherence. He was admitted 05/13/2025 due to pneumonia and CHF exacerbation requiring intubation and ICU stay. During this time, an angiogram was done showing 90% stenosis of the RCA, however conservative management was favored. Due to GI bleeding, the patient was not able to be started on anticoagulation therapy. Patient was seen and examined at bedside. Overnight events were reviewed. Ultrasound-guided left thoracentesis was performed. A thoracentesis catheter was inserted without difficulty, and approximately 1100 mL of esther fluid was removed. The patient reports improvement in his symptoms after procedure. Objective vital signs Vital Sign Date Time Temp Pulse Resp B/P (MAP) Pulse Ox O2 Delivery O2 Flow Rate FiO2 06/28/25 14:55 45 16 94/48 (63) 100 06/28/25 13:00 97.4 97.4 06/27/25 20:00 Nasal Cannula* 4 36 Total Intake and Output 06/27/25 06/27/25 06/28/25 15:00 23:00 07:00 Intake Total 0 ml 320 ml Balance 0 ml 320 ml medications Current Medications Medications Dose Ordered Sig/Mikki Route Start Time Stop Time Status Last Admin Dose Admin Aspirin 81 mg DAILY PO 06/27/25 10:00 06/28/25 10:23 81 MG Atorvastatin Calcium 40 mg HS PO 06/27/25 22:00 06/27/25 22:43 40 MG Empaglifozin 10 mg DAILY PO 06/27/25 10:00 06/28/25 10:23 10 MG Sacubitril/ Valsartan 1 tab BID PO 06/27/25 10:00 06/28/25 10:22 1 TAB Furosemide 40 mg BID IV 06/26/25 23:15 06/28/25 10:16 40 MG Enoxaparin Sodium 90 mg Q12HR SC 06/27/25 10:00 06/28/25 10:15 90 MG Morphine Sulfate 1 mg Q2HP PRN IV 06/27/25 00:00 Spironolactone 50 mg DAILY PO 06/27/25 10:00 06/28/25 10:23 50 MG Diagnostic Test (Pha) 1 strip ACHS 06/27/25 07:00 06/28/25 12:13 1 STRIP Insulin Human Regular ACHS SC 06/27/25 07:00 06/28/25 12:08 3 UNITS Dextrose 50 ml UD PRN IV 06/27/25 05:00 Amiodarone HCl 200 mg DAILY PO 06/27/25 10:00 06/28/25 10:16 200 MG Pantoprazole Sodium 40 mg DAILY IV 06/27/25 10:00 06/28/25 10:13 40 MG Acetaminophen/ Hydrocodone Bitart 1 tab Q6HPRN PRN PO 06/27/25 18:00 06/28/25 12:06 1 TAB Carvedilol 3.125 mg Q12HR PO 06/28/25 10:00 06/28/25 10:22 3.125 MG Examination General: The patient alert and oriented in person place and time. Patient following commands HEENT: Normocephalic, atraumatic, left normal reactive pupil, right eye prosthesis present, EOM intact, pink conjunctiva, pink moist mucous membrane Respiratory/pulmonary: Bilateral chest expansion, no pain on palpation of chest wall, vesicular murmurs present in almost all lung israel, bilateral crackles in lower lung israel Cardiovascular: Tachycardic, normal S1 and S2 Abdomen: Abdomen nondistended, normal bowel sounds, soft, there is no pain to palpation in any of the abdominal quadrants, no palpable masses. Extremities: No deformities, bilateral lower extremity pitting edema 3+ reaching up to knees, normal pulses Skin: No rashes or pruritus, there is no sacral edema present at this time. Neurological: Intact cranial nerves with no focal neurologic deficits laboratory and microbiology Laboratory Tests 06/28/25 06:43 Test 06/28/25 06:43 Range/Units Serum Glucose 68 L 74-106 mg/dL Microbiology Date/Time Source Procedure Growth Status 06/27/25 17:50 Pleural Fluid Gram Stain - Final Resulted 06/27/25 17:50 Pleural Fluid Body Fluid Culture - Preliminary Resulted 06/26/25 23:18 Blood Blood Culture - Preliminary NO GROWTH AFTER 24 HOURS OF INCUBATION. Resulted Labs and/or images reviewed: Labs reviewed by me, Image(s) reviewed by me Problem List/Assessment/Plan Problem List/Assessment/Plan Assessment and Plan: Acute on chronic HFrEF with exacerbation, EF 10% ( Echo from 01/24/2025) - Chest US: Moderate bilateral pleural effusions - Echocardiogram pending - Lasix 40 mg IV b.i.d. - Jardiance 10 mg p.o. daily - Entresto 1 tab p.o. b.i.d. - Spironolactone 50 mg p.o. daily - Metoprolol succinate 50 mg p.o. daily - Cardiac diet - Strict I&Os Bilateral pleural effusion - Chest x-ray: Bilateral pleural effusions and/or underlying lung consolidation, larger on the left, obscuring the hemidiaphragms and heart borders. This appearance is stable on the right and increased on the left compared with chest x-ray dated 06/20/2025. - As above - Pulmonary consultation - Ultrasound-guided LEFT thoracentesis procedure (06/27/25): About 1100 mL's of ESTHER colored fluid were removed without difficulty. CAD/ischemic cardiomyopathy, symptomatic - angiogram (05/24/2025): mid RCA has a focal heavily calcified 90% stenosis - aspirin 81 mg p.o. daily - Lovenox 90 mg SC q.12 hours ( 1 mg/ kg) - Atorvastatin 40 mg PO HS - Cardiology consult: Follow-up electrolytes and kidney function tests and correct abnormalities. Keep potassium above 4 and magnesium above 2 Paroxysmal Atrial Fibrillation - Amiodarone 200 mg PO BID - Lovenox 90 mg SC q 12 hours (1 mg/kg) Hypokalemia, 3.1 - Potassium 60 mEq PO once Type 2 diabetes mellitus, HbA1c: 5.5 (05/18/2025) - Accu-Cheks - Mild SSI Hyperlipidemia - Atorvastatin 40 mg PO HS Alcoholic Liver Cirrhosis - Liver US: Advanced hepatic fibrosis or cirrhosis. Gallbladder wall thickening and pericholecystic fluid likely secondary to hepatocellular dysfunction. - Monitor LFTs - Avoid hepatoxic drugs History of Liver Cancer CBD adenoma s/p biliary stenting Ruled out DVT - elevated D-dimer - Extremity Venous Study: NO SONOGRAPHIC EVIDENCE FOR DEEP VENOUS THROMBOSIS IN THE BILATERAL UPPER/LOWER EXTREMITY VEINS. Diet: Cardiac DVT prophylaxis: Currently on therapeutic Lovenox Goals of care: Full code, discussed for >16 minutes on 06/28/25 Plan discussed with patient Plan discussed with Dr. Nam Plan discussed with: Patient My Orders My Orders Orders - CONNOR TORRE Procedure Category Date Status Time Complete Blood Count LAB 06/29/25 Verified 04:00 Basic Metabolic Panel LAB 06/29/25 Verified 04:00 Date of Service: Jun 28, 2025 Billing Provider: ATIF NAM MD Common Visit Codes: [id number] INP/OBS CARE(HIGH) CONNOR TORRE Jun 28, 2025 15:58 ATIF NAM MD Jun 28, 2025 22:30
[2025-06-28 18:42] LABS: Hemoglobin 10.9 g/dL (13.5-17.5)
[2025-06-28 18:43] LABS: Hematocrit 35.4 % (41.0-53.0)
--- NOTE | 2025-06-28 20:34 | DVHPN2 ---
Subjective [facility] DOS: 06/28/2025 Patient seen and examined at bedside. Remains on supplemental oxygen Overnight events reviewed. Changes from previous H/P or p: No Changes Objective Vitals Vital Signs Date Time Temp Pulse Resp B/P (MAP) Pulse Ox O2 Delivery O2 Flow Rate FiO2 06/28/25 17:00 97.5 45 18 105/58 (74) 91 97.5 06/28/25 08:00 Nasal Cannula* 4 36 Intake/Output Intake and Output 06/28/25 07:00 Intake Total 320 ml Balance 320 ml Intake Oral 320 ml # Voids 2 Exam Gen.: Patient lying in bed in no apparent distress. On supplemental oxygen. Head: Normocephalic, atraumatic. Eyes: EOMI/PERRLA. Ears: Normal hearing. Normal anatomy. Neck/trachea: Trachea midline, supple. Nose: Normal external anatomy. Mouth: Moist mucous membranes. Chest: Decreased air entry bilaterally. No wheezing or rhonchi. Cardiovascular: Positive S1, positive S2. Regular rate and rhythm. Abdomen: Positive bowel sounds in all 4 quadrants. Soft, non-tender, non- distended. : Deferred. Rectal: Deferred. Skin: Warm, dry. Intact. Extremities: 2+ radial pulses bilaterally. No lower extremity edema. Neuro: Awake, alert, oriented x3. No gross motor or sensory deficits. Cranial nerves II through XII intact. Gait not assessed. Medications Current Medications Medications Dose Ordered Sig/[facility] Route Start Time Stop Time Status Last Admin Dose Admin Aspirin 81 mg DAILY PO 06/27/25 10:00 06/28/25 10:23 81 MG Atorvastatin Calcium 40 mg HS PO 06/27/25 22:00 06/27/25 22:43 40 MG Empaglifozin 10 mg DAILY PO 06/27/25 10:00 06/28/25 10:23 10 MG Furosemide 40 mg BID IV 06/26/25 23:15 06/28/25 10:16 40 MG Enoxaparin Sodium 90 mg Q12HR SC 06/27/25 10:00 06/28/25 10:15 90 MG Morphine Sulfate 1 mg Q2HP PRN IV 06/27/25 00:00 Spironolactone 50 mg DAILY PO 06/27/25 10:00 06/28/25 10:23 50 MG Diagnostic Test (Pha) 1 strip ACHS 06/27/25 07:00 06/28/25 17:33 1 STRIP Insulin Human Regular ACHS SC 06/27/25 07:00 06/28/25 12:08 3 UNITS Dextrose 50 ml UD PRN IV 06/27/25 05:00 Amiodarone HCl 200 mg DAILY PO 06/27/25 10:00 06/28/25 10:16 200 MG Acetaminophen/ Hydrocodone Bitart 1 tab Q6HPRN PRN PO 06/27/25 18:00 06/28/25 12:06 1 TAB Carvedilol 3.125 mg Q12HR PO 06/28/25 10:00 06/28/25 10:22 3.125 MG Sacubitril/ Valsartan 0.5 tab BID PO 06/28/25 22:00 Pantoprazole Sodium 40 mg DAILY@0600 PO 06/29/25 06:00 Laboratory Results Laboratory Tests 06/28/25 06:43 06/28/25 18:30 Chemistry Test 06/27/25 21:15 06/28/25 06:43 Magnesium Level 2.0 mg/dL (1.6-2.6) Albumin 2.6 g/dL (3.2-4.8) L Calcium Level 8.3 mg/dL (8.7-10.4) L Total Protein 5.9 g/dL (5.7-8.2) LFT Test 06/28/25 06:43 Alanine Aminotransferase (ALT) 44 U/L (7-40) H Alkaline Phosphatase 915 U/L (46-116) H Aspartate Amino Transferase (AST) 62 U/L (13-40) H Total Bilirubin 1.0 mg/dL (0.2-1.0) Microbiology Microbiology Date/Time Source Procedure Growth Status 06/27/25 17:50 Pleural Fluid Gram Stain - Final Resulted 06/27/25 17:50 Pleural Fluid Body Fluid Culture - Preliminary Resulted 06/26/25 23:18 Blood Blood Culture - Preliminary NO GROWTH AFTER 24 HOURS OF INCUBATION. Resulted Assessment/Plan Assessment/Plan Impression: Acute hypoxic respiratory failure Dependence on supplemental oxygen Acute on chronic heart failure with reduced ejection fraction, EF 10% Pleural effusion Atelectasis Elevated D-dimer, ruled out PE Alcoholic liver cirrhosis Atrial fibrillation Coronary artery disease/ischemic cardiomyopathy Hypokalemia Hx of nicotine dependence Events: Remains on supplemental oxygen, 4 LPM NC Taper O2 as tolerated Note, thoracentesis was deferred. Low blood pressure, systolic in 90s - monitor. Monitor hemoglobin Transfuse if less than 7.0 g/dL. Limited chest ultrasound reveals loculated bilateral pleural effusions. Will need to consider chest tube placement if thoracentesis fails to re-expand the lung. Continue incentive spirometry Lasix held due to low BP Monitor renal function Labs and imaging reviewed. Rest of plan as noted below. Plan: Supplemental oxygen Titrate to keep O2 sats above 92%. CT angio ruled out pulmonary embolism. PO amiodarone for AFib On therapeutic Lovenox On Entresto, spironolactone and metoprolol. Cardiology recs appreciated Incentive spirometry Accu-Cheks, ISS PRN. Diurese with Lasix BID - on hold due to low BP Fluid and salt restriction Monitor renal function. Monitor electrolytes. Supplement as necessary. Monitor ins and outs. Counseled to abstain from ETOH use. Protonix for GI ppx Lovenox SC for DVT ppx. Prognosis: Poor given patient's multiple co-morbidities. Rest of plan per hospitalist and other consultants. Thank you, Dr. De La Vega, for allowing me to participate in this patient's care. Further recommendations will depend on the patient's clinical course. Please do not hesitate to contact me if you have any questions or concerns. This medical document was created using an electronic medical record system with [employer] dictation system. Although these documentations are being carefully reviewed, there may still be some phonetic and typographical changes. The errors are purely typographical, due to imperfection on the software program, and do not reflect any compromise in the patient's medical care. Plan discussed with: Patient, Other (ABEBA Dean) Visit Coding Pulmonary Billing Provider: ENMANUEL DANG MD Date of Service if different f: Jun 28, 2025 Common Visit Codes: [id number] INP/OBS CARE(HIGH) ENMANUEL DANG MD Jun 28, 2025 20:34
[2025-06-28] MEDS: SACUBITRIL-VALSARTAN 24mg/26mg TAB PO SCH (22:10)
[2025-06-29] VITALS (16 sets, daily range): BP systolic 118–141; BP diastolic 65–77; PULSE 47–88; RESP 16–19; TEMP 96.4–98.1; O2SAT 91–100
[2025-06-29 06:39] LABS: Nucleated Red Blood Cells % 0.2 %
[2025-06-29] MEDS: PANTOPRAZOLE 40 MG TAB PO SCH (06:39)
[2025-06-29 06:43] LABS: Hematocrit 33.7 % (41.0-53.0); Hemoglobin 10.5 g/dL (13.5-17.5); Mean Corpuscular Hemoglobin 20.5 pg (28.0-32.0); Mean Corpuscular Volume 65.7 fL (80.0-100.0)
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
[2025-06-29 06:54] LABS: Anion Gap 6 (5-15); Chloride 98 mmol/L (98-107); Potassium 3.7 mmol/L (3.5-5.1); Sodium 140 mmol/L (136-145)
[2025-06-29 07:00] LABS: BUN/Creatinine Ratio 17.6 (10.0-20.0); Blood Urea Nitrogen 16 mg/dL (9-23)
[2025-06-29 07:01] LABS: Calcium 8.6 mg/dL (8.7-10.4); Carbon Dioxide 36 mmol/L (20-31); Glucose 72 mg/dL (74-106)
[2025-06-29 13:07] LABS: Glucose, Body Fluid 84.0 mg/dL (.); LD, Body Fluid 268.0 IU/L (.)
[2025-06-29] MEDS: LEVALBUTEROL HCL 1.25 MG/3 ML NEB NEB SCH (13:20)
[2025-06-29] MEDS: IPRATROPIUM BROM 0.5 MG/2.5ML INH SOL NEB SCH (13:20)
--- NOTE | 2025-06-29 15:51 | DVHPNRES ---
Progress Note Date Seen: Jun 29, 2025 Resident Creating Document: CONNOR TORRE Medical Necessity Reason Pt with a Central, PICC or Fol: No Subjective Review of Systems Patient is a 74-year-old male with past medical history of HFrEF with EF 10%, ischemic cardiomyopathy, CAD, type 2 diabetes mellitus, alcoholic liver cirrhosis, liver cancer and CBD adenoma s/p biliary stenting, hypertension, COPD, hyperlipidemia, presented to [facility] ED with complaint of chest pain and shortness of breath. He states he began to have retrosternal chest pain 3 days ago insert changing between sharp and pressure, 04/28, non- radiating, aggravated with exertion, with no relieving factors associated with shortness of breath, however the patient states he is always short of breath and requires home O2 3-5L. Additionally refers swelling in lower extremities. He states he is complaint with his medications however does not adhere to a low salt diet or fluid restriction, and due celebrations at his home may have faltered on his medication adherence. He was admitted 05/13/2025 due to pneumonia and CHF exacerbation requiring intubation and ICU stay. During this time, an angiogram was done showing 90% stenosis of the RCA, however conservative management was favored. Due to GI bleeding, the patient was not able to be started on anticoagulation therapy. 06/28- Patient was seen and examined at bedside. Overnight events were reviewed. Ultrasound-guided left thoracentesis was performed. A thoracentesis catheter was inserted without difficulty, and approximately 1100 mL of esther fluid was removed. The patient reports improvement in his symptoms after procedure. 06/29- Patient was seen and examined at bedside. Overnight events were reviewed. The patient continues to experience shortness of breath and chest pain following the procedure. A chest X-ray revealed moderate bilateral pleural effusions, which may be contributing to the persistent symptoms. Breathing treatments have been initiated to alleviate respiratory distress. Objective vital signs Vital Sign Date Time Temp Pulse Resp B/P (MAP) Pulse Ox O2 Delivery O2 Flow Rate FiO2 06/29/25 13:30 47 18 100 06/29/25 13:26 97.6 131/77 3.0 32 97.6 06/29/25 13:25 Nasal Cannula* Total Intake and Output 06/28/25 06/28/25 06/29/25 15:00 23:00 07:00 Intake Total 1000 ml 310 ml Output Total 1300 ml Balance -300 ml 310 ml medications Current Medications Medications Dose Ordered Sig/Mikki Route Start Time Stop Time Status Last Admin Dose Admin Aspirin 81 mg DAILY PO 06/27/25 10:00 06/29/25 10:00 81 MG Atorvastatin Calcium 40 mg HS PO 06/27/25 22:00 06/28/25 22:10 40 MG Empaglifozin 10 mg DAILY PO 06/27/25 10:00 06/29/25 10:00 10 MG Furosemide 40 mg BID IV 06/26/25 23:15 06/29/25 10:00 40 MG Enoxaparin Sodium 90 mg Q12HR SC 06/27/25 10:00 06/29/25 10:00 90 MG Morphine Sulfate 1 mg Q2HP PRN IV 06/27/25 00:00 Spironolactone 50 mg DAILY PO 06/27/25 10:00 06/29/25 10:00 50 MG Diagnostic Test (Pha) 1 strip ACHS 06/27/25 07:00 06/29/25 12:04 1 STRIP Insulin Human Regular ACHS SC 06/27/25 07:00 06/29/25 06:41 2 UNITS Dextrose 50 ml UD PRN IV 06/27/25 05:00 Amiodarone HCl 200 mg DAILY PO 06/27/25 10:00 06/29/25 10:00 200 MG Acetaminophen/ Hydrocodone Bitart 1 tab Q6HPRN PRN PO 06/27/25 18:00 06/29/25 10:00 1 TAB Carvedilol 3.125 mg Q12HR PO 06/28/25 10:00 06/29/25 10:00 3.125 MG Sacubitril/ Valsartan 0.5 tab BID PO 06/28/25 22:00 06/29/25 10:00 0.5 TAB Pantoprazole Sodium 40 mg DAILY@0600 PO 06/29/25 06:00 06/29/25 06:39 40 MG Levalbuterol HCl 0.625 mg Q6HR NEB 06/29/25 12:00 06/29/25 13:20 0.625 MG Ipratropium [place] 0.5 mg Q6HWA NEB 06/29/25 12:00 06/29/25 13:20 0.5 MG Examination General: The patient alert and oriented in person place and time. Patient following commands HEENT: Normocephalic, atraumatic, left normal reactive pupil, right eye prosthesis present, EOM intact, pink conjunctiva, pink moist mucous membrane Respiratory/pulmonary: Bilateral chest expansion, no pain on palpation of chest wall, vesicular murmurs present in almost all lung [place], bilateral crackles in lower lung [place] Cardiovascular: Tachycardic, normal S1 and S2 Abdomen: Abdomen nondistended, normal bowel sounds, soft, there is no pain to palpation in any of the abdominal quadrants, no palpable masses. Extremities: No deformities, bilateral lower extremity pitting edema 3+ reaching up to knees, normal pulses Skin: No rashes or pruritus, there is no sacral edema present at this time. Neurological: Intact cranial nerves with no focal neurologic deficits laboratory and microbiology Laboratory Tests 06/29/25 05:33 Test 06/29/25 05:33 Range/Units Serum Glucose 72 L 74-106 mg/dL Microbiology Date/Time Source Procedure Growth Status 06/27/25 17:50 Pleural Fluid Gram Stain - Final Resulted 06/27/25 17:50 Pleural Fluid Body Fluid Culture - Preliminary Resulted 06/26/25 23:18 Blood Blood Culture - Preliminary NO GROWTH AFTER 48 HOURS OF INCUBATION. Resulted Labs and/or images reviewed: Labs reviewed by me, Image(s) reviewed by me Problem List/Assessment/Plan Problem List/Assessment/Plan Assessment and Plan: Acute on chronic HFrEF with exacerbation, EF 10% ( Echo from 01/24/2025) - Chest US: Moderate bilateral pleural effusions - Echocardiogram pending - Lasix 40 mg IV b.i.d. - Jardiance 10 mg p.o. daily - Entresto 1 tab p.o. b.i.d. - Spironolactone 50 mg p.o. daily - Metoprolol succinate 50 mg p.o. daily - Cardiac diet - Strict I&Os - Levalbuterol HCl 0.625 mg - Ipratropium 0.5 mg Bilateral pleural effusion - Chest X-ray: Moderate bilateral pleural effusions. - Chest X-ray: Bilateral pleural effusions and/or underlying lung consolidation, larger on the left, obscuring the hemidiaphragms and heart borders. This appearance is stable on the right and increased on the left compared with chest x-ray dated 06/20/2025. - As above - Pulmonary consultation - Ultrasound-guided LEFT thoracentesis procedure (06/27/25): About 1100 mL's of ESTHER colored fluid were removed without difficulty. - Ultrasound-guided LEFT thoracentesis procedure pending CAD/ischemic cardiomyopathy, symptomatic - angiogram (05/24/2025): mid RCA has a focal heavily calcified 90% stenosis - aspirin 81 mg p.o. daily - Lovenox 90 mg SC q.12 hours ( 1 mg/ kg) - Atorvastatin 40 mg PO HS - Cardiology consult: Follow-up electrolytes and kidney function tests and correct abnormalities. Keep potassium above 4 and magnesium above 2 Paroxysmal Atrial Fibrillation - Amiodarone 200 mg PO BID - Lovenox 90 mg SC q 12 hours (1 mg/kg) Hypokalemia, 3.1 - Potassium 60 mEq PO once Type 2 diabetes mellitus, HbA1c: 5.5 (05/18/2025) - Accu-Cheks - Mild SSI Hyperlipidemia - Atorvastatin 40 mg PO HS Alcoholic Liver Cirrhosis - Liver US: Advanced hepatic fibrosis or cirrhosis. Gallbladder wall thickening and pericholecystic fluid likely secondary to hepatocellular dysfunction. - Monitor LFTs - Avoid hepatoxic drugs History of Liver Cancer CBD adenoma s/p biliary stenting Ruled out DVT - elevated D-dimer - Extremity Venous Study: NO SONOGRAPHIC EVIDENCE FOR DEEP VENOUS THROMBOSIS IN THE BILATERAL UPPER/LOWER EXTREMITY VEINS. Diet: Cardiac DVT prophylaxis: Currently on therapeutic Lovenox Goals of care: Full code, discussed for >16 minutes on 06/29/25 Plan discussed with patient Plan discussed with Dr. Nam Plan discussed with: Patient, Other (RN) Date of Service: Jun 29, 2025 Billing Provider: ATIF NAM MD Common Visit Codes: [id number] INP/OBS CARE(HIGH) CONNOR TORRE RESIDENT Jun 29, 2025 15:51 ATIF NAM MD Jun 30, 2025 00:15
--- NOTE | 2025-06-29 16:24 | DVHPN2 ---
Progress Note - Dictate Date Seen: Jun 29, 2025 Medical Necessity Reason Pt with a Central, PICC or Fol: No vital signs Vital Sign Date Time Temp Pulse Resp B/P (MAP) Pulse Ox O2 Delivery O2 Flow Rate FiO2 06/29/25 13:30 47 18 100 06/29/25 13:26 97.6 131/77 3.0 32 97.6 06/29/25 13:25 Nasal Cannula* Total Intake and Output 06/28/25 06/28/25 06/29/25 14:59 22:59 06:59 Intake Total 1000 ml 310 ml Output Total 1300 ml Balance -300 ml 310 ml medications Current Medications Medications Dose Ordered Sig/Mikki Route Start Time Stop Time Status Last Admin Dose Admin Aspirin 81 mg DAILY PO 06/27/25 10:00 06/29/25 10:00 81 MG Atorvastatin Calcium 40 mg HS PO 06/27/25 22:00 06/28/25 22:10 40 MG Empaglifozin 10 mg DAILY PO 06/27/25 10:00 06/29/25 10:00 10 MG Furosemide 40 mg BID IV 06/26/25 23:15 06/29/25 10:00 40 MG Enoxaparin Sodium 90 mg Q12HR SC 06/27/25 10:00 06/29/25 10:00 90 MG Morphine Sulfate 1 mg Q2HP PRN IV 06/27/25 00:00 Spironolactone 50 mg DAILY PO 06/27/25 10:00 06/29/25 10:00 50 MG Diagnostic Test (Pha) 1 strip ACHS 06/27/25 07:00 06/29/25 12:04 1 STRIP Insulin Human Regular ACHS SC 06/27/25 07:00 06/29/25 06:41 2 UNITS Dextrose 50 ml UD PRN IV 06/27/25 05:00 Amiodarone HCl 200 mg DAILY PO 06/27/25 10:00 06/29/25 10:00 200 MG Acetaminophen/ Hydrocodone Bitart 1 tab Q6HPRN PRN PO 06/27/25 18:00 06/29/25 10:00 1 TAB Carvedilol 3.125 mg Q12HR PO 06/28/25 10:00 06/29/25 10:00 3.125 MG Sacubitril/ Valsartan 0.5 tab BID PO 06/28/25 22:00 06/29/25 10:00 0.5 TAB Pantoprazole Sodium 40 mg DAILY@0600 PO 06/29/25 06:00 06/29/25 06:39 40 MG Levalbuterol HCl 0.625 mg Q6HR NEB 06/29/25 12:00 06/29/25 13:20 0.625 MG Ipratropium [place] 0.5 mg Q6HWA NEB 06/29/25 12:00 06/29/25 13:20 0.5 MG laboratory and microbiology Laboratory Tests 06/29/25 05:33 Test 06/29/25 05:33 Range/Units Serum Glucose 72 L 74-106 mg/dL Assessment/Plan Acute hypoxic respiratory failure Dependence on supplemental oxygen Acute on chronic heart failure with reduced ejection fraction, EF 10% Pleural effusion Atelectasis Elevated D-dimer, ruled out PE Alcoholic liver cirrhosis Atrial fibrillation Coronary artery disease/ischemic cardiomyopathy Hypokalemia Hx of nicotine dependence Events: Remains on supplemental oxygen, 4 LPM NC Taper O2 as tolerated Limited chest ultrasound reveals loculated bilateral pleural effusions. Continue incentive spirometry Lasix held due to low BP Monitor renal function Labs and imaging reviewed. Rest of plan as noted below. Plan: Supplemental oxygen Titrate to keep O2 sats above 92%. CT angio ruled out pulmonary embolism. PO amiodarone for AFib On therapeutic Lovenox! Plan discussed with: Patient CYNTHIA PERRY MD Jun 29, 2025 16:24
[2025-06-29] MEDS: KETOROLAC TROMETH 30 MG/ML 1ML VIAL IV ONE (22:05)
[2025-06-30] VITALS (14 sets, daily range): BP systolic 114–154; BP diastolic 58–81; PULSE 50–62; RESP 17–20; TEMP 97.4–98.6; O2SAT 94–100
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
[2025-06-30] MEDS: POTASSIUM CHL 20 Meq TABLET PO ONE (09:40)
--- NOTE | 2025-06-30 09:47 | ECG ---
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
--- NOTE | 2025-06-30 09:47 | ECG ---
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
[2025-06-30 10:16] LABS: Hematocrit 36.5 % (41.0-53.0); Hemoglobin 11.3 g/dL (13.5-17.5); Mean Corpuscular Hemoglobin 20.2 pg (28.0-32.0); Mean Corpuscular Volume 64.9 fL (80.0-100.0); Nucleated Red Blood Cells % 0.3 %
[2025-06-30 10:19] LABS: BUN/Creatinine Ratio 17.2 (10.0-20.0); Bilirubin, Total 1.1 mg/dL (0.2-1.0); Blood Urea Nitrogen 17 mg/dL (9-23); Glucose 105 mg/dL (74-106); Total Protein 7.3 g/dL (5.7-8.2)
[2025-06-30 10:24] LABS: Anion Gap 9 (5-15)
[2025-06-30 10:29] LABS: Alanine Aminotransferase 50 U/L (7-40); Albumin 3.1 g/dL (3.2-4.8); Alkaline Phosphatase 961 U/L (46-116); Calcium 8.5 mg/dL (8.7-10.4); Carbon Dioxide 31 mmol/L (20-31); Chloride 100 mmol/L (98-107); Potassium 4.0 mmol/L (3.5-5.1); Sodium 140 mmol/L (136-145)
--- NOTE | 2025-06-30 13:45 | DVHPN2 ---
Progress Note - Dictate Date Seen: Jun 30, 2025 Medical Necessity Reason Pt with a Central, PICC or Fol: No vital signs Vital Sign Date Time Temp Pulse Resp B/P (MAP) Pulse Ox O2 Delivery O2 Flow Rate FiO2 06/30/25 12:31 98.6 62 17 118/75 (89) 96 98.6 06/30/25 11:16 Nasal Cannula* 2 28 Total Intake and Output 06/29/25 06/29/25 06/30/25 15:00 23:00 07:00 Intake Total 368 ml 440 ml Output Total 1500 ml 225 ml Balance -1132 ml 215 ml medications Current Medications Medications Dose Ordered Sig/Mikki Route Start Time Stop Time Status Last Admin Dose Admin Aspirin 81 mg DAILY PO 06/27/25 10:00 06/30/25 09:41 81 MG Atorvastatin Calcium 40 mg HS PO 06/27/25 22:00 06/29/25 21:54 40 MG Empaglifozin 10 mg DAILY PO 06/27/25 10:00 06/30/25 09:41 10 MG Furosemide 40 mg BID IV 06/26/25 23:15 06/30/25 09:36 40 MG Enoxaparin Sodium 90 mg Q12HR SC 06/27/25 10:00 06/30/25 09:41 90 MG Morphine Sulfate 1 mg Q2HP PRN IV 06/27/25 00:00 Spironolactone 50 mg DAILY PO 06/27/25 10:00 06/30/25 09:41 50 MG Diagnostic Test (Pha) 1 strip ACHS 06/27/25 07:00 06/30/25 06:04 1 STRIP Insulin Human Regular ACHS SC 06/27/25 07:00 06/29/25 21:50 3 UNITS Dextrose 50 ml UD PRN IV 06/27/25 05:00 Amiodarone HCl 200 mg DAILY PO 06/27/25 10:00 06/30/25 09:40 200 MG Acetaminophen/ Hydrocodone Bitart 1 tab Q6HPRN PRN PO 06/27/25 18:00 06/29/25 16:39 1 TAB Carvedilol 3.125 mg Q12HR PO 06/28/25 10:00 06/30/25 09:41 3.125 MG Sacubitril/ Valsartan 0.5 tab BID PO 06/28/25 22:00 06/30/25 09:40 0.5 TAB Pantoprazole Sodium 40 mg DAILY@0600 PO 06/29/25 06:00 06/29/25 06:39 40 MG Levalbuterol HCl 0.625 mg Q6HR NEB 06/29/25 12:00 06/30/25 11:16 0.625 MG Ipratropium [place] 0.5 mg Q6HWA NEB 06/29/25 12:00 06/30/25 11:16 0.5 MG laboratory and microbiology Laboratory Tests 06/30/25 09:40 Test 06/30/25 09:40 Range/Units Serum Glucose 105 74-106 mg/dL Assessment/Plan Acute hypoxic respiratory failure Dependence on supplemental oxygen Acute on chronic heart failure with reduced ejection fraction, EF 10% Pleural effusion Atelectasis Elevated D-dimer, ruled out PE Alcoholic liver cirrhosis Atrial fibrillation Coronary artery disease/ischemic cardiomyopathy Hypokalemia Hx of nicotine dependence Patient seen and examined Events: Remains on supplemental oxygen, 4 LPM NC Taper O2 as tolerated Limited chest ultrasound reveals loculated bilateral pleural effusions. Continue incentive spirometry Monitor renal function Labs and imaging reviewed. Rest of plan as noted below. Plan: Supplemental oxygen Titrate to keep O2 sats above 92%. Obtain CT of the chest without contrast to better characterize lung parenchyma PO amiodarone for AFib Hold Lovenox overnight Will consider thoracentesis Plan discussed with: Patient CYNTHIA PERRY MD Jun 30, 2025 13:45
[2025-06-30] MEDS ORDERED: ACETAMINOPHEN 325 MG TAB PO PRN (14:00)
--- NOTE | 2025-06-30 16:10 | DVHPNRES ---
Progress Note Date Seen: Jun 30, 2025 Resident Creating Document: JHAJJONDINA RESIDENT Medical Necessity Reason Pt with a Central, PICC or Fol: No Subjective Review of Systems Patient seen and examined with the bedside Reports feeling about the same as yesterday, currently on 3 L oxygen which is his baseline Discussed with the patient of the possibility of doing another thoracentesis tomorrow since loculated pleural effusions were seen on the chest ultrasound Objective vital signs Vital Sign Date Time Temp Pulse Resp B/P (MAP) Pulse Ox O2 Delivery O2 Flow Rate FiO2 06/30/25 12:31 98.6 62 17 118/75 (89) 96 98.6 06/30/25 11:16 Nasal Cannula* 2 28 Total Intake and Output 06/29/25 06/29/25 06/30/25 15:00 23:00 07:00 Intake Total 368 ml 440 ml Output Total 1500 ml 225 ml Balance -1132 ml 215 ml medications Current Medications Medications Dose Ordered Sig/Mikki Route Start Time Stop Time Status Last Admin Dose Admin Aspirin 81 mg DAILY PO 06/27/25 10:00 06/30/25 09:41 81 MG Atorvastatin Calcium 40 mg HS PO 06/27/25 22:00 06/29/25 21:54 40 MG Empaglifozin 10 mg DAILY PO 06/27/25 10:00 06/30/25 09:41 10 MG Furosemide 40 mg BID IV 06/26/25 23:15 06/30/25 09:36 40 MG Enoxaparin Sodium 90 mg Q12HR SC 06/27/25 10:00 06/30/25 09:41 90 MG Morphine Sulfate 1 mg Q2HP PRN IV 06/27/25 00:00 Spironolactone 50 mg DAILY PO 06/27/25 10:00 06/30/25 09:41 50 MG Diagnostic Test (Pha) 1 strip ACHS 06/27/25 07:00 06/30/25 11:30 1 STRIP Insulin Human Regular ACHS SC 06/27/25 07:00 06/29/25 21:50 3 UNITS Dextrose 50 ml UD PRN IV 06/27/25 05:00 Amiodarone HCl 200 mg DAILY PO 06/27/25 10:00 06/30/25 09:40 200 MG Acetaminophen/ Hydrocodone Bitart 1 tab Q6HPRN PRN PO 06/27/25 18:00 06/30/25 13:22 1 TAB Carvedilol 3.125 mg Q12HR PO 06/28/25 10:00 06/30/25 09:41 3.125 MG Sacubitril/ Valsartan 0.5 tab BID PO 06/28/25 22:00 06/30/25 09:40 0.5 TAB Pantoprazole Sodium 40 mg DAILY@0600 PO 06/29/25 06:00 06/29/25 06:39 40 MG Levalbuterol HCl 0.625 mg Q6HR NEB 06/29/25 12:00 06/30/25 11:16 0.625 MG Ipratropium [place] 0.5 mg Q6HWA NEB 06/29/25 12:00 06/30/25 11:16 0.5 MG Acetaminophen 650 mg Q5HP PRN PO 06/30/25 14:00 Examination Gen - mild conjunctival pallor, no icterus, no LAD, bilateral 3+ edema in the lower extremities. Skin - Patients skin is warm and dry. HEENT - normocephalic, atraumatic, moist mucous membranes. Neck - full ROM, no LAD, no JVD Pulmonary - B/L equal breath sounds, no crackles, no wheezing, no stridor. cardiovascular - regular S1,S2 heard, no added sounds GI - soft, nontender abdomen. no hepatospleenomegaly. Bowel sounds normoactive Neurological - Patient is A/O X 3 . Bilateral upper extremity strength 5/5, bilateral lower extremity strength 5/5, no facial droop, normal speech, no tremor, no sensory deficiets. laboratory and microbiology Laboratory Tests 06/30/25 09:40 Test 06/30/25 09:40 Range/Units Serum Glucose 105 74-106 mg/dL Microbiology Date/Time Source Procedure Growth Status 06/27/25 17:50 Pleural Fluid Gram Stain - Final Resulted 06/27/25 17:50 Pleural Fluid Body Fluid Culture - Preliminary Resulted 06/26/25 23:18 Blood Blood Culture - Preliminary NO GROWTH AFTER 72 HOURS OF INCUBATION. Resulted Problem List/Assessment/Plan Problem List/Assessment/Plan Acute on chronic HFrEF with exacerbation, EF 10% ( Echo from 01/24/2025) - Chest US: Moderate bilateral pleural effusions - Echocardiogram shows LVEF 5-10% with diffuse hypokinesis, right ventricular dilation and reduced systolic function, RVSP 70 mmHg - Lasix 40 mg IV b.i.d. - Jardiance 10 mg p.o. daily - Entresto 1 tab p.o. b.i.d. - Spironolactone 50 mg p.o. daily - Metoprolol succinate 50 mg p.o. daily - Cardiac diet - Strict I&Os - Levalbuterol HCl 0.625 mg - Ipratropium 0.5 mg Bilateral pleural effusion - Chest X-ray: Moderate bilateral pleural effusions. - Chest X-ray: Bilateral pleural effusions and/or underlying lung consolidation, larger on the left, obscuring the hemidiaphragms and heart borders. This appearance is stable on the right and increased on the left compared with chest x-ray dated 06/20/2025. - As above - Pulmonary consultation - Ultrasound-guided LEFT thoracentesis procedure (06/27/25): About 1100 mL's of ALFONSO colored fluid were removed, exudative as per lights criteria - Ultrasound-guided LEFT thoracentesis procedure pending CAD/ischemic cardiomyopathy, symptomatic - angiogram (05/24/2025): mid RCA has a focal heavily calcified 90% stenosis - aspirin 81 mg p.o. daily - Lovenox 90 mg SC q.12 hours ( 1 mg/ kg) - Atorvastatin 40 mg PO HS - Cardiology consult: Follow-up electrolytes and kidney function tests and correct abnormalities. Keep potassium above 4 and magnesium above 2 Paroxysmal Atrial Fibrillation - Amiodarone 200 mg PO BID - Lovenox 90 mg SC q 12 hours (1 mg/kg) Hyperlipidemia - Atorvastatin 40 mg PO HS Alcoholic Liver Cirrhosis - Liver US: Advanced hepatic fibrosis or cirrhosis. Gallbladder wall thickening and pericholecystic fluid likely secondary to hepatocellular dysfunction. - Monitor LFTs - Avoid hepatoxic drugs History of Liver Cancer CBD adenoma s/p biliary stenting Ruled out DVT - elevated D-dimer - Extremity Venous Study: NO SONOGRAPHIC EVIDENCE FOR DEEP VENOUS THROMBOSIS IN THE BILATERAL UPPER/LOWER EXTREMITY VEINS. Diet: Cardiac DVT prophylaxis: Currently on therapeutic Lovenox Goals of care: Full code, discussed for >21 minutes Plan discussed with patient Plan discussed with Dr. Noguera Plan discussed with: Patient, Other (ABEBA Armendariz) Date of Service: Jun 30, 2025 Billing Provider: ATIF NOGUERA MD Common Visit Codes: [id number] INP/OBS CARE(HIGH) ONDINA CHURCHILL RESIDENT Jun 30, 2025 16:10 ATIF NOGUERA MD Jun 30, 2025 22:48
--- NOTE | 2025-06-30 18:26 | DVH ---
EXAM: CT CHEST WITHOUT CONTRAST INDICATION: pleural effusions TECHNIQUE: Noncontrast axial images of the chest have been obtained along with coronal and sagittal r eformatted images. All CT scans at this facility use dose modulation, iterative reconstruction, and/o r weight based dosing when appropriate to reduce radiation dose to as low as reasonably achievable. COMPARISON: XY CHEST XRAY 1 VIEW on DOS: 06/28/25 FINDINGS: LOWER NECK: Unremarkable LYMPH NODES/MEDIASTINUM: Calcified mediastinal lymph nodes likely related to antecedent granulomatous infection. CARDIOVASCULAR: Mild cardiomegaly. No pericardial effusion. Prominence of the main pulmonary artery, which may indicate pulmonary hypertension.. Coronary artery calcifications. UPPER ABDOMEN: Unremarkable. MUSCULOSKELETAL: No acute fracture or aggressive focal osseous lesion. CHEST WALL: Unremarkable. LUNG PARENCHYMA/PLEURAL SPACE: Medium to large right and loculated small to medium left pleural effus ions. Complete collapse of the right lower lobe with near-complete collapse of the left lower lobe in determinate oval-shaped area of increased density measuring 3.3 x 2.2 cm in the collapse right lower lobe of indeterminate etiology. Underlying malignancy remains of potential etiology. [id number] scattered centrilobular emphysema. IMPRESSION: 1. Medium to large right and loculated small to medium left pleural effusions. 2. Complete collapse of the right lower lobe with near-complete collapse of the left lower lobe. 3. Indeterminate oval-shaped area of increased density measuring 3.3 x 2.2 cm in the collapse right l ower lobe of indeterminate etiology. 4. Underlying malignancy remains of potential etiology.
[2025-07-01] VITALS (11 sets, daily range): BP systolic 111–153; BP diastolic 71–96; PULSE 51–70; RESP 15–20; TEMP 96.1–98.4; O2SAT 85–100
--- NOTE | 2025-07-01 00:40 | ECG ---
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
[2025-07-01] MEDS: KETOROLAC TROMETH 30 MG/ML 1ML VIAL IV ONE (00:44)
[2025-07-01] MEDS: IPRATROPIUM BROM 0.5 MG/2.5ML INH SOL NEB SCH (06:00)
--- NOTE | 2025-07-01 07:41 | ECG ---
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
--- NOTE | 2025-07-01 09:37 | ECG ---
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
--- NOTE | 2025-07-01 09:37 | ECG ---
[facility] Test Date: 2025-06-26 Test Time: 15:40:10 Pat Name: ITM NULL Department: ER Room: 0289T Gender: M Psychodramatist: MEI : 1950 Requested By: CORY POTTER Order Number: [id number] Reading MD: Hardeep Tate Measurements Intervals [place] Rate: 64 P: 41 GA: 170 QRS: -20 QRSD: 90 T: 32 QT: 563 QTc: 581 Interpretive Statements Sinus rhythm Probable left ventricular hypertrophy Borderline abnrm T, anterolateral leads Prolonged QT interval Artifact in lead(s) I,II,aVR,aVL,aVF Electronically Signed On 07-02-2025 15:07:00 PDT by Hardeep Tate Please click the below link to view image of tracing.
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
[2025-07-01 10:23] LABS: Chloride 102 mmol/L (98-107); Potassium 4.7 mmol/L (3.5-5.1); Sodium 141 mmol/L (136-145)
[2025-07-01 10:24] LABS: Anion Gap 8 (5-15); Carbon Dioxide 31 mmol/L (20-31)
[2025-07-01 10:26] LABS: Calcium 8.1 mg/dL (8.7-10.4)
[2025-07-01 10:29] LABS: BUN/Creatinine Ratio 16.5 (10.0-20.0); Blood Urea Nitrogen 17 mg/dL (9-23); Magnesium 1.9 mg/dL (1.6-2.6)
[2025-07-01 10:31] LABS: Glucose 119 mg/dL (74-106)
[2025-07-01 11:18] LABS: Hemoglobin 9.8 g/dL (13.5-17.5); Nucleated Red Blood Cells % 0.1 %
[2025-07-01 11:21] LABS: Hematocrit 31.8 % (41.0-53.0); Mean Corpuscular Hemoglobin 20.4 pg (28.0-32.0); Mean Corpuscular Volume 66.0 fL (80.0-100.0)
[2025-07-01] MEDS ORDERED: HYDROmorphone HCL 2 MG/ML VL/or syr IV ONE (12:45)
--- NOTE | 2025-07-01 13:13 | DVH ---
CHEST RADIOGRAPH Indication: status post thoracentesis Technique: Single frontal view of the chest was obtained Comparison: XY CHEST XRAY 1 VIEW on DOS: 06/28/25, XY CHEST XRAY 1 VIEW on DOS: 06/26/25, XY CHEST POR TABLE on DOS: 05/28/25 FINDINGS: Lines and Tubes: None Lungs: Bibasilar airspace disease and pleural effusions right worse than left. 3.3 cm rounded density right base may represent unusual formation of pleural effusion or pulmonary mass. Consider CT chest for further evaluation. Pleura: No effusion. No pneumothorax. Cardiomediastinal contours: Unremarkable Bones: No acute osseous abnormality. IMPRESSION: 1. Bibasilar airspace disease and pleural effusions. Right worse than left. 2. 3.3 cm rounded soft tissue density in the right base may represent pulmonary nodule or unusual col lection of pleural fluid. Consider CT of the chest for further evaluation.
--- NOTE | 2025-07-01 14:22 | DVHPN2 ---
Progress Note - Dictate Date Seen: Jul 01, 2025 Medical Necessity Reason Pt with a Central, PICC or Fol: No vital signs Vital Sign Date Time Temp Pulse Resp B/P (MAP) Pulse Ox O2 Delivery O2 Flow Rate FiO2 07/01/25 12:52 97.7 57 16 145/79 (101) 97 97.7 07/01/25 00:29 Nasal Cannula 2.0 07/01/25 00:29 28 Total Intake and Output 06/30/25 06/30/25 07/01/25 15:00 23:00 07:00 Intake Total 600 ml 100 ml Output Total 880 ml 1 ml Balance -280 ml 99 ml medications Current Medications Medications Dose Ordered Sig/Mikki Route Start Time Stop Time Status Last Admin Dose Admin Aspirin 81 mg DAILY PO 06/27/25 10:00 07/01/25 09:25 81 MG Atorvastatin Calcium 40 mg HS PO 06/27/25 22:00 06/30/25 22:11 40 MG Empaglifozin 10 mg DAILY PO 06/27/25 10:00 07/01/25 09:25 10 MG Furosemide 40 mg BID IV 06/26/25 23:15 07/01/25 09:48 40 MG Enoxaparin Sodium 90 mg Q12HR SC 06/27/25 10:00 Hold 06/30/25 09:41 90 MG Morphine Sulfate 1 mg Q2HP PRN IV 06/27/25 00:00 Spironolactone 50 mg DAILY PO 06/27/25 10:00 07/01/25 09:25 50 MG Diagnostic Test (Pha) 1 strip ACHS 06/27/25 07:00 07/01/25 11:35 1 STRIP Insulin Human Regular ACHS SC 06/27/25 07:00 07/01/25 11:40 3 UNITS Dextrose 50 ml UD PRN IV 06/27/25 05:00 Amiodarone HCl 200 mg DAILY PO 06/27/25 10:00 07/01/25 09:25 200 MG Acetaminophen/ Hydrocodone Bitart 1 tab Q6HPRN PRN PO 06/27/25 18:00 06/30/25 22:07 1 TAB Sacubitril/ Valsartan 0.5 tab BID PO 06/28/25 22:00 07/01/25 09:25 0.5 TAB Pantoprazole Sodium 40 mg DAILY@0600 PO 06/29/25 06:00 07/01/25 05:48 40 MG Levalbuterol HCl 0.625 mg Q6HR NEB 06/29/25 12:00 07/01/25 00:29 0.625 MG Acetaminophen 650 mg Q5HP PRN PO 06/30/25 14:00 Ipratropium [place] 0.5 mg Q6HR NEB 07/01/25 06:00 laboratory and microbiology Laboratory Tests 07/01/25 11:00 07/01/25 09:40 Test 07/01/25 09:40 Range/Units Serum Glucose 119 H 74-106 mg/dL Assessment/Plan Acute hypoxic respiratory failure Dependence on supplemental oxygen Acute on chronic heart failure with reduced ejection fraction, EF 10% Pleural effusion Atelectasis Elevated D-dimer, ruled out PE Alcoholic liver cirrhosis Atrial fibrillation Coronary artery disease/ischemic cardiomyopathy Hypokalemia Hx of nicotine dependence Patient seen and examined Events: Remains on supplemental oxygen, 4 LPM NC Taper O2 as tolerated Chest x-ray shows bilateral pleural effusions Subsequent thoracentesis was performed at the bedside See separate note for procedure in detail Labs and imaging reviewed. Rest of plan as noted below. Plan: Supplemental oxygen Titrate to keep O2 sats above 92%. PO amiodarone for AFib Continue current management plan Plan discussed with: Patient CYNTHIA PERRY MD Jul 01, 2025 14:22
--- NOTE | 2025-07-01 14:24 | DVHNC2 ---
Procedure - Procedure- Right sided Thoracentesis ultrasound guided Indication- Pleural effusions Procedure in detail Consent was obtained and timeout performed per protocol. The patient was placed in the sititng position and ultrasound SonoSite was used to localize pleural fluid. ChloraPrep was used to clean the operative field and Lidocaine for local analgesia. Thoracentesis catheter was advanced over the needle, attached to the suction bottle and approximately 900 cc of colored fluid was drained from the right pleural space. Procedure was terminated upon reports of pain by patient. At the end of the procedure, the catheter was removed and dressing applied. Samples obtained for diagnostic testing. Chest-x ray ordered. No complications CYNTHIA PERRY MD Jul 01, 2025 14:24
--- NOTE | 2025-07-01 14:25 | DVHNC2 ---
Procedure - Procedure- Left sided Thoracentesis ultrasound guided Indication- Pleural effusions Procedure in detail Consent was obtained and timeout performed per protocol. The patient was placed in the sitting position and ultrasound SonoSite was used to localize pleural fluid. ChloraPrep was used to clean the operative field and Lidocaine for local analgesia. Thoracentesis catheter was advanced over the needle, attached to the suction bottle and approximately 1.2 liters of esther colored fluid was drained from the right pleural space. At the end of the procedure, the catheter was removed and dressing applied. Samples obtained for diagnostic testing. Chest-x ray ordered. No complications CYNTHIA PERRY MD Jul 01, 2025 14:25
[2025-07-01] MEDS: MAGNESIUM SULFATE 1GM/100ML 100 ML IV ONE (14:51)
[2025-07-01] MEDS: MAGNESIUM SULFATE 1GM/100ML 0 ML IV ONE (14:53)
--- NOTE | 2025-07-01 16:04 | DVHPNRES ---
Progress Note Date Seen: Jul 01, 2025 Resident Creating Document: CONNOR TORRE Medical Necessity Reason Pt with a Central, PICC or Fol: No Subjective Review of Systems Patient is a 74-year-old male with past medical history of HFrEF with EF 10%, ischemic cardiomyopathy, CAD, type 2 diabetes mellitus, alcoholic liver cirrhosis, liver cancer and CBD adenoma s/p biliary stenting, hypertension, COPD, hyperlipidemia, presented to [facility] ED with complaint of chest pain and shortness of breath. He states he began to have retrosternal chest pain 3 days ago insert changing between sharp and pressure, 04/28, non- radiating, aggravated with exertion, with no relieving factors associated with shortness of breath, however the patient states he is always short of breath and requires home O2 3-5L. Additionally refers swelling in lower extremities. He states he is complaint with his medications however does not adhere to a low salt diet or fluid restriction, and due celebrations at his home may have faltered on his medication adherence. He was admitted 05/13/2025 due to pneumonia and CHF exacerbation requiring intubation and ICU stay. During this time, an angiogram was done showing 90% stenosis of the RCA, however conservative management was favored. Due to GI bleeding, the patient was not able to be started on anticoagulation therapy. 06/28- Patient was seen and examined at bedside. Overnight events were reviewed. Ultrasound-guided left thoracentesis was performed. A thoracentesis catheter was inserted without difficulty, and approximately 1100 mL of esther fluid was removed. The patient reports improvement in his symptoms after procedure. 06/29- Patient was seen and examined at bedside. Overnight events were reviewed. The patient continues to experience shortness of breath and chest pain following the procedure. A chest X-ray revealed moderate bilateral pleural effusions, which may be contributing to the persistent symptoms. Breathing treatments have been initiated to alleviate respiratory distress. 07/01- Patient was seen and examined at bedside. Overnight events were reviewed. Patient remains on supplemental oxygen at 4 LPM via nasal cannula. Oxygen requirements are being tapered as tolerated. Recent chest X-ray revealed bilateral pleural effusions. A bedside thoracentesis was subsequently performed to address the effusions. Objective vital signs Vital Sign Date Time Temp Pulse Resp B/P (MAP) Pulse Ox O2 Delivery O2 Flow Rate FiO2 07/01/25 15:38 59 07/01/25 12:52 97.7 16 145/79 (101) 97 97.7 07/01/25 00:29 Nasal Cannula 2.0 07/01/25 00:29 28 Total Intake and Output 06/30/25 06/30/25 07/01/25 15:00 23:00 07:00 Intake Total 600 ml 100 ml Output Total 880 ml 1 ml Balance -280 ml 99 ml medications Current Medications Medications Dose Ordered Sig/Mikki Route Start Time Stop Time Status Last Admin Dose Admin Aspirin 81 mg DAILY PO 06/27/25 10:00 07/01/25 09:25 81 MG Atorvastatin Calcium 40 mg HS PO 06/27/25 22:00 06/30/25 22:11 40 MG Empaglifozin 10 mg DAILY PO 06/27/25 10:00 07/01/25 09:25 10 MG Furosemide 40 mg BID IV 06/26/25 23:15 07/01/25 09:48 40 MG Enoxaparin Sodium 90 mg Q12HR SC 06/27/25 10:00 Hold 06/30/25 09:41 90 MG Morphine Sulfate 1 mg Q2HP PRN IV 06/27/25 00:00 Spironolactone 50 mg DAILY PO 06/27/25 10:00 07/01/25 09:25 50 MG Diagnostic Test (Pha) 1 strip ACHS 06/27/25 07:00 07/01/25 11:35 1 STRIP Insulin Human Regular ACHS SC 06/27/25 07:00 07/01/25 11:40 3 UNITS Dextrose 50 ml UD PRN IV 06/27/25 05:00 Amiodarone HCl 200 mg DAILY PO 06/27/25 10:00 07/01/25 09:25 200 MG Acetaminophen/ Hydrocodone Bitart 1 tab Q6HPRN PRN PO 06/27/25 18:00 06/30/25 22:07 1 TAB Sacubitril/ Valsartan 0.5 tab BID PO 06/28/25 22:00 07/01/25 09:25 0.5 TAB Pantoprazole Sodium 40 mg DAILY@0600 PO 06/29/25 06:00 07/01/25 05:48 40 MG Levalbuterol HCl 0.625 mg Q6HR NEB 06/29/25 12:00 07/01/25 00:29 0.625 MG Acetaminophen 650 mg Q5HP PRN PO 06/30/25 14:00 Ipratropium [place] 0.5 mg Q6HR NEB 07/01/25 06:00 Examination Gen - mild conjunctival pallor, no icterus, no LAD, bilateral 3+ edema in the lower extremities. Skin - Patients skin is warm and dry. HEENT - normocephalic, atraumatic, moist mucous membranes. Neck - full ROM, no LAD, no JVD Pulmonary - B/L equal breath sounds, no crackles, no wheezing, no stridor. cardiovascular - regular S1,S2 heard, no added sounds GI - soft, nontender abdomen. no hepatospleenomegaly. Bowel sounds normoactive Neurological - Patient is A/O X 3 . Bilateral upper extremity strength 5/5, bilateral lower extremity strength 5/5, no facial droop, normal speech, no tremor, no sensory deficiets. laboratory and microbiology Laboratory Tests 07/01/25 11:00 07/01/25 09:40 Test 07/01/25 09:40 Range/Units Serum Glucose 119 H 74-106 mg/dL Microbiology Date/Time Source Procedure Growth Status 06/27/25 17:50 Pleural Fluid Gram Stain - Final Resulted 06/27/25 17:50 Pleural Fluid Body Fluid Culture - Preliminary Resulted 06/26/25 23:18 Blood Blood Culture - Preliminary NO GROWTH AFTER 72 HOURS OF INCUBATION. Resulted Labs and/or images reviewed: Labs reviewed by me, Image(s) reviewed by me Problem List/Assessment/Plan Problem List/Assessment/Plan Assessment and Plan: Acute on chronic HFrEF with exacerbation, EF 10% ( Echo from 01/24/2025) - Chest US: Moderate bilateral pleural effusions - Echocardiogram: LVEF was 5-10%. Diffuse hypokinesis of left ventricle was seen. Restrictive filling of left ventricular diastolic function was observed. - Lasix 40 mg IV b.i.d. - Jardiance 10 mg p.o. daily - Entresto 1 tab p.o. b.i.d. - Spironolactone 50 mg p.o. daily - Metoprolol succinate 50 mg p.o. daily - Cardiac diet - Strict I&Os - Levalbuterol HCl 0.625 mg - Ipratropium 0.5 mg Bilateral pleural effusion - Chest X-ray: Moderate bilateral pleural effusions. - Chest X-ray: Bilateral pleural effusions and/or underlying lung consolidation, larger on the left, obscuring the hemidiaphragms and heart borders. This appearance is stable on the right and increased on the left compared with chest x-ray dated 06/20/2025. - As above - Pulmonary consultation - Ultrasound-guided LEFT thoracentesis procedure (06/27/25): About 1100 mL's of ESTHER colored fluid were removed without difficulty. - Ultrasound-guided LEFT thoracentesis procedure (07/01/25) CAD/ischemic cardiomyopathy, symptomatic - angiogram (05/24/2025): mid RCA has a focal heavily calcified 90% stenosis - aspirin 81 mg p.o. daily - Lovenox 90 mg SC q.12 hours ( 1 mg/ kg) - Atorvastatin 40 mg PO HS - Cardiology consult: Follow-up electrolytes and kidney function tests and correct abnormalities. Keep potassium above 4 and magnesium above 2 Paroxysmal Atrial Fibrillation - Amiodarone 200 mg PO BID - Lovenox 90 mg SC q 12 hours (1 mg/kg) Hypokalemia, 3.1 - Potassium 60 mEq PO once Type 2 diabetes mellitus, HbA1c: 5.5 (05/18/2025) - Accu-Cheks - Mild SSI Hyperlipidemia - Atorvastatin 40 mg PO HS Alcoholic Liver Cirrhosis - Liver US: Advanced hepatic fibrosis or cirrhosis. Gallbladder wall thickening and pericholecystic fluid likely secondary to hepatocellular dysfunction. - Monitor LFTs - Avoid hepatoxic drugs History of Liver Cancer CBD adenoma s/p biliary stenting Ruled out DVT - elevated D-dimer - Extremity Venous Study: NO SONOGRAPHIC EVIDENCE FOR DEEP VENOUS THROMBOSIS IN THE BILATERAL UPPER/LOWER EXTREMITY VEINS. Diet: Cardiac DVT prophylaxis: Currently on therapeutic Lovenox Goals of care: Full code, discussed for >16 minutes on 07/01/25 Plan discussed with patient Plan discussed with Dr. Noguera Plan discussed with: Patient, Other (RN) Date of Service: Jul 01, 2025 Billing Provider: ATIF NOGUERA MD Common Visit Codes: [id number] INP/OBS CARE(HIGH) CONNOR TORRE RESIDENT Jul 01, 2025 16:04 ATIF NOGUERA MD Jul 01, 2025 22:53
[2025-07-01] MEDS: SACUBITRIL-VALSARTAN 24mg/26mg TAB PO SCH (22:00)
[2025-07-02] VITALS (10 sets, daily range): BP systolic 129–149; BP diastolic 68–88; PULSE 56–64; RESP 16–19; TEMP 97.5–97.7; O2SAT 98–100
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
--- NOTE | 2025-07-02 11:20 | DVHDSRES ---
Discharge Summary Date of Admission Resident Creating Document: CONNOR TORRE RESIDENT Jul 01, 2025 at 08:25 Date of Discharge: Jul 02, 2025 Admitting Diagnosis chest pain and worsening shortness of breath Labs/Diagnostic Data: Laboratory Results Test 07/02/25 06:32 07/01/25 16:40 07/01/25 11:00 07/01/25 09:40 POC Glucose 83 mg/dl (70-106) Body Fluid Source Pleural fluid Body Fluid WBC (Manual) 985 CUMM (0-200) Body Fluid RBC (Manual) 8271 CUMM (0-2000) Body Fluid Mononuclear Cells 35 % Body Fluid Polymorphonuclear Cells 65 % (0-25) White Blood Count 4.2 10^3/uL (4.4-10.8) Red Blood Count 4.82 10^6/uL (4.5-5.90) Hemoglobin 9.8 g/dL (13.5-17.5) Hematocrit 31.8 % (41.0-53.0) Mean Corpuscular Volume 66.0 fL (80.0-100.0) Mean Corpuscular Hemoglobin 20.4 pg (28.0-32.0) Mean Corpuscular Hemoglobin Concent 30.9 g/dL (32.0-36.0) Red Cell Distribution Width 20.1 % (11.8-14.3) Platelet Count 206 10^3/uL (140-450) Mean Platelet Volume 7.4 fL (6.9-10.8) Neutrophils (%) (Auto) 70.7 % (37.0-80.0) Lymphocytes (%) (Auto) 15.2 % (10.0-50.0) Monocytes (%) (Auto) 12.8 % (0.0-12.0) Eosinophils (%) (Auto) 0.6 % (0.0-7.0) Basophils (%) (Auto) 0.7 % (0.0-2.0) Neutrophils # (Auto) 3.0 10 ^3/uL (1.6-8.6) Lymphocytes # (Auto) 0.6 10 ^3/uL (0.4-5.4) Monocytes # (Auto) 0.5 10 ^3/uL (0-1.3) Eosinophils # (Auto) 0 10 ^3/uL (0-0.8) Basophils # (Auto) 0 10 ^3/uL (0-0.2) Nucleated Red Blood Cells 0.1 % Sodium Level 141 mmol/L (136-145) Potassium Level 4.7 mmol/L (3.5-5.1) Chloride Level 102 mmol/L (98-107) Carbon Dioxide Level 31 mmol/L (20-31) Anion Gap 8 (5-15) Blood Urea Nitrogen 17 mg/dL (9-23) Creatinine 1.03 mg/dL (0.700-1.30) Glomerular Filtration Rate Calc 77 mL/min (>90) BUN/Creatinine Ratio 16.5 (10.0-20.0) Serum Glucose 119 mg/dL (74-106) Calcium Level 8.1 mg/dL (8.7-10.4) Magnesium Level 1.9 mg/dL (1.6-2.6) Test 06/30/25 09:40 06/27/25 21:15 06/27/25 17:50 06/27/25 11:23 Total Bilirubin 1.1 mg/dL (0.2-1.0) Aspartate Amino Transferase (AST) 92 U/L (13-40) Alanine Aminotransferase (ALT) 50 U/L (7-40) Alkaline Phosphatase 961 U/L (46-116) Total Protein 7.3 g/dL (5.7-8.2) Albumin 3.1 g/dL (3.2-4.8) Lactate Dehydrogenase 239 U/L (120-246) Body Fluid pH 8.0 D-Dimer, Quantitative 4.22 mg/L FEU (0.0-0.49) Test 06/27/25 04:39 06/27/25 01:40 06/26/25 23:15 06/26/25 19:31 Reticulocyte Count (auto) 0.98 % (0.5-1.5) Iron Level 30 ug/dL (65-175) Total Iron Binding Capacity 239 ug/dL (250-425) Percent Iron Saturation 12.6 % (20-55) Ferritin 260.7 ng/mL (22-322) Free Thyroxine (T4) Calculated 1.38 ng/dL (0.89-1.76) Total Triiodothyronine (TT3) 1.07 ng/mL (0.60-1.81) Urine Opiates Screen Pos (NEGATIVE) Urine Fentanyl Screen Neg (NEGATIVE) Urine Barbiturates Screen Neg (NEGATIVE) Urine Phencyclidine Screen Neg (NEGATIVE) Urine Amphetamines Screen Neg (NEGATIVE) Urine Benzodiazepines Screen Neg (NEGATIVE) Urine Cocaine Screen Neg (NEGATIVE) Urine Cannabinoids Screen Neg (NEGATIVE) Lactic Acid Level 1.9 mmol/L (0.4-2.0) Phosphorus Level 2.9 mg/dL (2.4-5.1) Troponin I High Sensitivity 17 ng/L (</=54) Thyroid Stimulating Hormone (TSH) 5.07 uIU/mL (0.55-4.78) Test 06/26/25 16:24 Platelet Estimate Adequate Hypochromasia (manual) Marked Poikilocytosis (manual) Slight Anisocytosis (manual) Slight Microcytosis Marked Target Cells Few B-Type Natriuretic Peptide > 5000.00 pg/mL (0-100) Vitamin B12 Level 1418 pg/mL (211-911) Vitamin D 25-Hydroxy 44.1 ng/mL (30.0-100) Other Laboratory Tests 07/01/25 11:00 07/01/25 09:40 Brief Hx & Hospital Course: The patient is a 74-year-old male with a complex medical history including HFrEF with EF 10%, ischemic cardiomyopathy, coronary artery disease, type 2 diabetes mellitus, alcoholic liver cirrhosis, liver cancer, CBD adenoma status post biliary stenting, hypertension, COPD, and hyperlipidemia. He presented to [facility] ED with retrosternal chest pain and worsening shortness of breath. The chest pain began three days prior to admission, described as alternating between sharp and pressure-like, rated 8/10, non-radiating, and aggravated by exertion. He also reported bilateral lower extremity swelling and chronic dyspnea requiring home oxygen therapy. Despite reported medication compliance, the patient admitted to lapses in adherence due to recent celebrations at home. He was previously admitted on 05/13/2025 for pneumonia and CHF exacerbation requiring intubation and ICU care. Coronary angiography revealed 90% RCA stenosis, managed conservatively due to GI bleeding precluding anticoagulation. During the current admission, the patient underwent ultrasound-guided left thoracentesis on 06/27/2025 and again on 07/01/2025, with removal of 1100 mL of esther fluid. Post-procedure, he reported symptomatic improvement, though persistent pleural effusions were noted on imaging. Supplemental oxygen was continued and tapered as tolerated. Cardiology and pulmonary consultations were obtained. Management included diuretics, heart failure medications, anticoagulation, and respiratory treatments. Electrolyte abnormalities were addressed, and liver function was monitored due to underlying cirrhosis and history of liver cancer. Examination Gen - mild conjunctival pallor, no icterus, no LAD, bilateral 3+ edema in the lower extremities. Skin - Patients skin is warm and dry. HEENT - normocephalic, atraumatic, moist mucous membranes. Neck - full ROM, no LAD, no JVD Pulmonary - B/L equal breath sounds, no crackles, no wheezing, no stridor. cardiovascular - regular S1,S2 heard, no added sounds GI - soft, nontender abdomen. no hepatospleenomegaly. Bowel sounds normoactive Neurological - Patient is A/O X 3 . Bilateral upper extremity strength 5/5, bilateral lower extremity strength 5/5, no facial droop, normal speech, no tremor, no sensory deficiets. Operations or Procedures PATIENT: TIM NULL ACCT: [id number] UNIT: [id number] : 1950 LOC: OVERFLOW ROOM / BED: [address] [place] [address] AGE / SEX: 74 / M ADM STATUS: ADM IN SERVICE 1243 ORDERING PHYSICIAN: CYNTHIA PERRY MD PROCEDURE(s): CXR1 - CHEST XRAY 1 VIEW REASON: status post thoracentesis ORDER NUMBER(s): [id number], ACCESSION NUMBER(s): [id number] CHEST RADIOGRAPH Indication: status post thoracentesis Technique: Single frontal view of the chest was obtained Comparison: XY CHEST XRAY 1 VIEW on DOS: 06/28/25, XY CHEST XRAY 1 VIEW on DOS: 06/26/25, XY CHEST PORTABLE on DOS: 05/28/25 FINDINGS: Lines and Tubes: None Lungs: Bibasilar airspace disease and pleural effusions right worse than left. 3.3 cm rounded density right base may represent unusual formation of pleural effusion or pulmonary mass. Consider CT chest for further evaluation. Pleura: No effusion. No pneumothorax. Cardiomediastinal contours: Unremarkable Bones: No acute osseous abnormality. IMPRESSION: 1. Bibasilar airspace disease and pleural effusions. Right worse than left. 2. 3.3 cm rounded soft tissue density in the right base may represent pulmonary nodule or unusual collection of pleural fluid. Consider CT of the chest for further evaluation. PATIENT: TIM NULL ACCT: [id number] UNIT: [id number] : 1950 LOC: [facility] ROOM / BED: [facility] / A AGE / SEX: 74 / M ADM STATUS: ADM IN SERVICE 1345 ORDERING PHYSICIAN: CYNTHIA PERRY MD PROCEDURE(s): CX2CT - CHEST WITHOUT CONTRAST REASON: pleural effusions ORDER NUMBER(s): [id number], ACCESSION NUMBER(s): [id number] EXAM: CT CHEST WITHOUT CONTRAST INDICATION: pleural effusions TECHNIQUE: Noncontrast axial images of the chest have been obtained along with coronal and sagittal reformatted images. All CT scans at this facility use dose modulation, iterative reconstruction, and/or weight based dosing when appropriate to reduce radiation dose to as low as reasonably achievable. COMPARISON: XY CHEST XRAY 1 VIEW on DOS: 06/28/25 FINDINGS: LOWER NECK: Unremarkable LYMPH NODES/MEDIASTINUM: Calcified mediastinal lymph nodes likely related to antecedent granulomatous infection. CARDIOVASCULAR: Mild cardiomegaly. No pericardial effusion. Prominence of the main pulmonary artery, which may indicate pulmonary hypertension.. Coronary artery calcifications. UPPER ABDOMEN: Unremarkable. MUSCULOSKELETAL: No acute fracture or aggressive focal osseous lesion. CHEST WALL: Unremarkable. LUNG PARENCHYMA/PLEURAL SPACE: Medium to large right and loculated small to medium left pleural effusions. Complete collapse of the right lower lobe with near-complete collapse of the left lower lobe indeterminate oval-shaped area of increased density measuring 3.3 x 2.2 cm in the collapse right lower lobe of indeterminate etiology. Underlying malignancy remains of potential etiology. [id number]-vq-[id number] scattered centrilobular emphysema. IMPRESSION: 1. Medium to large right and loculated small to medium left pleural effusions. 2. Complete collapse of the right lower lobe with near-complete collapse of the left lower lobe. 3. Indeterminate oval-shaped area of increased density measuring 3.3 x 2.2 cm in the collapse right lower lobe of indeterminate etiology. 4. Underlying malignancy remains of potential etiology. - PATIENT: TIM NULL ACCT: [id number] UNIT: [id number] : 1950 LOC: [facility] AGE / SEX: 74 / M ADM STATUS: ADM IN SERVICE 0759 ORDERING PHYSICIAN: ONDINA CHURCHILL RESIDENT PROCEDURE(s): CXR1 - CHEST XRAY 1 VIEW REASON: SOB ORDER NUMBER(s): [id number], ACCESSION NUMBER(s): [id number] EXAM: XY CHEST XRAY 1 VIEW Indication: SOB Technique: Portable AP view of the chest was performed. Comparison: XY CHEST XRAY 1 VIEW on DOS: 06/26/25, XY CHEST TWO VIEWS ROUTINE on DOS: 06/20/25, XY CHEST PORTABLE on DOS: 05/28/25, XY CHEST TWO VIEWS ROUTINE on DOS: 05/21/25, XY CHEST PORTABLE on DOS: 05/21/25 FINDINGS: Lines and Tubes: None Lungs: Moderate bilateral pleural effusions with bibasilar opacities. No pneumothorax. Cardiomediastinal contours: Unremarkable. Atherosclerotic vascular calcifications of the thoracic aorta are noted. Bones: No acute osseous abnormality. IMPRESSION: Moderate bilateral pleural effusions. PATIENT: TIM NULL ACCT: [id number] UNIT: [id number] : 1950 LOC: [facility] ROOM / BED: [address] [place] [address] A AGE / SEX: 74 / M ADM STATUS: ADM IN SERVICE 1542 ORDERING PHYSICIAN: CATHERINE GUERRA MD PROCEDURE(s): BLDVT - BiLat Lower DVT REASON: SOB ORDER NUMBER(s): [id number], ACCESSION NUMBER(s): [id number] CLINICAL HISTORY: SOB TECHNIQUE: Color and duplex doppler imagine of the bilateral lower extremity veins was performed. Vessel compression and augmentation if possible was also performed. COMPARISON: US BI LAT UPPER DVT on DOS: 06/27/25, US BI LAT UPPER DVT on DOS: 05/17/25, US US GUIDED VASCULAR ACCESS on DOS: 05/14/25, US BILAT LOWER DVT on DOS: 01/24/25 FINDINGS: Right Lower Extremity: Right common femoral vein: Normal compressibility and flow. Right superficial femoral vein: Normal compressibility and flow. Right popliteal vein: Normal compressibility and flow. Proximal calf veins demonstrate flow. Left Lower Extremity: Left common femoral vein: Normal compressibility and flow. Left superficial femoral vein: Normal compressibility and flow. Left popliteal vein: Normal compressibility and flow. Proximal calf veins demonstrate flow. IMPRESSION: NO SONOGRAPHIC EVIDENCE FOR DEEP VENOUS THROMBOSIS IN THE BILATERAL LOWER EXTREMITY VEINS. PATIENT: TIM NULL ACCT: [id number] UNIT: [id number] : 1950 LOC: [facility] ROOM / BED: [address] [place] [address] A AGE / SEX: 74 / M ADM STATUS: ADM IN SERVICE 1522 ORDERING PHYSICIAN: CATHERINE GUERRA MD PROCEDURE(s): BUDVT - Bi Lat Upper DVT REASON: ELEVATED D DIMER ORDER NUMBER(s): [id number], ACCESSION NUMBER(s): [id number] CLINICAL HISTORY: ELEVATED D DIMER TECHNIQUE: Color and duplex doppler imagine of the bilateral upper extremity veins and subclavian veins was performed. Vessel compression if possible was also performed. COMPARISON: US BILAT LOWER DVT on DOS: 06/27/25, US BI LAT UPPER DVT on DOS: 05/17/25, US US GUIDED VASCULAR ACCESS on DOS: 05/14/25, US BILAT LOWER DVT on DOS: 01/24/25 FINDINGS: The bilateral internal jugular, basilic, cephalic, axillary, and paired brachial veins are patent and demonstrate normal compressibility and flow. The radial and ulnar veins are patent bilaterally. The subclavian veins bilaterally are patent. IMPRESSION: NO SONOGRAPHIC EVIDENCE FOR DEEP VENOUS THROMBOSIS IN THE BILATERAL UPPER EXTREMITY VEINS. PATIENT: TIM NULL ACCT: [id number] UNIT: [id number] : 1950 LOC: OVERFLOW ROOM / BED: [address] [place] [address] AGE / SEX: 74 / M ADM STATUS: ADM IN SERVICE 2 ORDERING PHYSICIAN: SOFI BLAIR RESIDENT PROCEDURE(s): CHSTU - CHEST ULTRASOUND REASON: Evaluate thoracentesis ORDER NUMBER(s): [id number], ACCESSION NUMBER(s): [id number] Bilateral Chest Sonogram Date: 06/27/2025 08:24 AM Clinical history: Evaluate thoracentesis Findings: Limited sonographic evaluation of the right and left chest was performed to localize and josué fluid for thoracentesis. Moderate bilateral pleural effusions IMPRESSION: Moderate bilateral pleural effusions PATIENT: TIM NULL ACCT: [id number] UNIT: [id number] : 1950 LOC: OVERFLOW ROOM / BED: [address] [place] [address] AGE / SEX: 74 / M ADM STATUS: ADM IN SERVICE ORDERING PHYSICIAN: ENEDELIA SPARROW RESIDENT PROCEDURE(s): LIVUS - LIVER REASON: Eval liver ORDER NUMBER(s): [id number], ACCESSION NUMBER(s): [id number] INDICATION: Eval liver TECHNIQUE: Multiple real-time sonographic images were obtained of the right upper quadrant. COMPARISON: CT chest/abdomen/pelvis 05/18/2025 FINDINGS: Hepatic echogenicity is increased with surface nodularity. The liver measures 18.6 cm. The common duct is not visualized. The gallbladder is nondistended without evidence of stone or sludge. Pericholecystic fluid. Wall thickness measures 4.4 mm. Reportedly negative sonographic Salvador's sign. The right kidney measures 10.7 cm. No visualized hydronephrosis, stone, or lesion. The pancreas is not well visualized due to overlying bowel gas. No visualized ascites. IMPRESSION: 1. Advanced hepatic fibrosis or cirrhosis. 2. Gallbladder wall thickening and pericholecystic fluid likely secondary to hepatocellular dysfunction. PATIENT: TIM NULL ACCT: [id number] : 1950 LOC: [facility] ROOM / BED: [address] [place] [address] AGE / SEX: 74 / M ADM STATUS: ADM IN SERVICE UNIT: [id number] ORDERING PHYSICIAN: ENEDELIA SPARROW RESIDENT PROCEDURE(s): EKG - ELECTROCARDIGRAM ORDER NUMBER(s): [id number], ACCESSION NUMBER(s): [id number] [facility] Test Date: 2025-07-01 Test Time: 00:03:19 Pat Name: TIM NULL Department: Room: [address] [place] [address] Gender: M Cigarette Packer: KRISTIN : 1950 Requested By: ENEDELIA SPARROW Order Number: [id number] Reading MD: Measurements Intervals [place] Rate: 55 P: 0 FL: 0 QRS: -7 QRSD: 119 T: 139 QT: 480 QTc: 460 Interpretive Statements Junctional rhythm LVH with secondary repolarization abnormality Artifact in lead(s) I,II,aVR,aVL,aVF Please click the below link to view image of tracing. - PATIENT: TIM NULL ACCT: [id number] : 1950 LOC: [facility] ROOM / BED: [facility] / A AGE / SEX: 74 / M ADM STATUS: ADM IN SERVICE UNIT: [id number] ORDERING PHYSICIAN: CONNOR TORRE PROCEDURE(s): EKG - ELECTROCARDIGRAM ORDER NUMBER(s): [id number], ACCESSION NUMBER(s): [id number] [facility] Test Date: 2025-06-29 Test Time: 10:38:56 Pat Name: TIM NULL Department: Room: [facility] A Gender: M Cigarette Packer: Day : 1950 Requested By: CONNOR TORRE Order Number: [id number] Reading MD: Measurements Intervals [place] Rate: 55 P: 42 FL: 206 QRS: 51 QRSD: 97 T: 0 QT: 435 QTc: 416 Interpretive Statements Sinus rhythm Probable LVH with secondary repol abnrm Lead(s) III were not used for morphology analysis Please click the below link to view image of tracing. PATIENT: TIM NULL ACCT: [id number] : 1950 LOC: [facility] AGE / SEX: 74 / M ADM STATUS: ADM IN SERVICE UNIT: [id number] ORDERING PHYSICIAN: CONNOR TORRE PROCEDURE(s): EKG - ELECTROCARDIGRAM ORDER NUMBER(s): [id number], ACCESSION NUMBER(s): [id number] [facility] Test Date: 2025-07-01 Test Time: 00:01:03 Pat Name: TIM NULL Department: Room: [address] [place] [address] Gender: M Cigarette Packer: KRISTIN : 1950 Requested By: CONNOR TORRE Order Number: [id number] Reading MD: Measurements Intervals [place] Rate: 136 P: 0 FL: 0 QRS: -37 QRSD: 111 T: 203 QT: 363 QTc: 547 Interpretive Statements Atrial fibrillation Ventricular tachycardia, unsustained RSR' in V1 or V2, probably normal variant Left ventricular hypertrophy Probable inferior infarct, age indeterminate Lateral leads are also involved Artifact in lead(s) III,aVL,aVF,V1,V2,V3,V4,V5,V6 Please click the below link to view image of tracing. - PATIENT: TIM NULL ACCT: [id number] UNIT: [id number] : 1950 LOC: [facility] ROOM / BED: [facility] / A AGE / SEX: 74 / M ADM STATUS: ADM IN SERVICE 3 ORDERING PHYSICIAN: JOSUÉ SHEN MD PROCEDURE(s): ECIDC - ECHO 2D MODE CARDIAC DOP REASON: CHEST PAIN ORDER NUMBER(s): [id number], ACCESSION NUMBER(s): [id number] APPROVED REPORT EXAM: Two-dimensional and M-mode echocardiogram with Doppler and color Doppler. Blood Pressure: 139/76 mmHg INDICATION Chest Pain RISK FACTORS Height: 75, Weight: 190 DIMENSIONS LVDd 5.6 (3.8-5.7cm) LA (2D) 5.2 (1.9-4.0cm) Aortic Root 3.5 (2.0- 3.7cm) LVDs 5.5 (2.5-4.0cm) LA (MM) (1.9-4.0cm) Aortic Cusp Exc 1.8 (1.5- 2.0cm) EF (%) 5.0 (55-70%) Rt. Atrium 5.0 (1.9-4.0cm) Asc. Aorta cm IVSd 1.0 (0.7-1.1cm) RV (D) (1.8-2.4cm) PWd 0.9 (0.7-1.1cm) Mitral Valve Mitral Mitral Stenosis E wave 0.95m/s MV Mean GR. mmHg A wave 0.33m/s MV Peak GR. 69mmHg E/A ratio 2.9 2D MVA cm2 DECEL Time 183ms PRESS 1/2 Time 65ms IVRT ms Dop MVA 3.41cm2 Aortic Valve Aortic Valve Aortic Stenosis V1 0.59m/s AO Mean GR. 3mmHg V2 1.11m/s AO Peak GR. 5mmHg LVOT Diameter 2.4 (1.8-2.4cm) Doppler MEEK 2.40cm2 AI P 1/2 Time 377.00ms Tricuspid Valve TR Velocity 3.07m/s RVSP 56mmHg Other Information Technically limited study due to patient sitting straight up during exam. Conclusion Four-chamber dilatation was seen. Left ventricle: Left ventricle was dilated with significantly reduced systolic function. LVEF was 5-10%. Diffuse hypokinesis of left ventricle was seen. Restrictive filling of left ventricular diastolic function was observed. Right ventricle was dilated with reduced systolic function. Both atria were dilated. Aortic valve was trileaflet. There was trace aortic insufficiency. There was no aortic stenosis. There was [id number]-zsyzyjpq mitral regurgitation. There was moderate tricuspid regurgitation. Pulmonary valve was not well visualized. Right ventricular systolic pressure was assessed around 70 mm Hg. There was no pericardial effusion. Left pleural effusion was seen. SIGNED BY: JOSUÉ SHEN MD SIGNED DATE/TIME: 06/27/251909 - PATIENT: TIM NULL ACCT: [id number] : 1950 LOC: [facility] AGE / SEX: 74 / M ADM STATUS: ADM IN SERVICE UNIT: [id number] ORDERING PHYSICIAN: ENEDELIA SPARROW RESIDENT PROCEDURE(s): EKG - ELECTROCARDIGRAM ORDER NUMBER(s): [id number], ACCESSION NUMBER(s): [id number] [facility] Test Date: 2025-06-29 Test Time: 10:38:10 Pat Name: TIM NULL Department: Room: [facility] Gender: M Cigarette Packer: Day : 1950 Requested By: ENEDELIA SPARROW Order Number: [id number] Phylicia MD: Measurements Intervals [place] Rate: 55 P: 42 FL: 202 QRS: 59 QRSD: 94 T: 66 QT: 668 QTc: 640 Interpretive Statements Sinus rhythm Probable LVH with secondary repol abnrm Prolonged QT interval Lead(s) III were not used for morphology analysis Baseline wander in lead(s) V2 Please click the below link to view image of tracing. PATIENT: TIM NULL ACCT: [id number] : 1950 LOC: [facility] ROOM / BED: [address] [place] [address] A AGE / SEX: 74 / M ADM STATUS: ADM IN SERVICE UNIT: [id number] ORDERING PHYSICIAN: CORY POTTER PROCEDURE(s): EKG - ELECTROCARDIGRAM ORDER NUMBER(s): [id number], ACCESSION NUMBER(s): [id number] [facility] Test Date: 2025-06-26 Test Time: 23:51:42 Pat Name: TIM NULL Department: [facility] ED Room: [facility] Gender: M Cigarette Packer: EDWARD : 1950 Requested By: CORY POTTER Order Number: [id number] Reading MD: Gaby Art Measurements Intervals [place] Rate: 63 P: 30 FL: 205 QRS: -14 QRSD: 97 T: 103 QT: 539 QTc: 552 Interpretive Statements Sinus rhythm Probable left ventricular hypertrophy Anterior Q waves, possibly due to LVH Nonspecific T abnormalities, lateral leads Prolonged QT interval Baseline wander in lead(s) V2,V4 Electronically Signed On 06-29-2025 20:35:30 PDT by Gaby Art Please click the below link to view image of tracing. DICTATED BY:GABY ART Sr., MD DICTATED DATE/TIME:06/26/25 1152 Condition at Discharge: Stable Final Diagnosis/Problems List Acute on chronic HFrEF with exacerbation, EF 10% ( Echo from 01/24/2025) Bilateral pleural effusion CAD/ischemic cardiomyopathy, symptomatic Paroxysmal Atrial Fibrillation Hypokalemia, 3.1 Type 2 diabetes mellitus, HbA1c: 5.5 (05/18/2025) Hyperlipidemia Alcoholic Liver Cirrhosis History of Liver Cancer CBD adenoma s/p biliary stenting Ruled out DVT Discharge Disposition: Home Discharge Instruct/Medications Diet: Regular Activity: No Restrictions, As Tolerated Follow Up/Referral: follow up with pcp within 1 week Medications: continue home medications Scheduled Amiodarone HCl (Amiodarone HCl), 1 TAB PO DAILY, (Reported) Amlodipine Besylate (Amlodipine Besylate), 1 TAB PO DAILY, (Reported) Aspirin (Aspirin Low Dose), 81 MG PO DAILY Atorvastatin Calcium (Atorvastatin Calcium), 40 MG PO HS Doxycycline Monohydrate (Doxycycline Monohydrate), 1 CAP PO BID Empagliflozin (Jardiance), 10 MG PO DAILY Furosemide (Furosemide), 1 TAB PO DAILY Ipratropium Merritt Hfa (Atrovent Hfa), 2 PUFF INH QIDPRN Metoprolol Succinate (Metoprolol Succinate Er), 50 MG PO DAILY Potassium Chloride (Potassium Chloride Cr), 1 TAB PO DAILY Sacubitril-Valsartan (Entresto 24-26 mg), 1 TAB PO BID Spironolactone (Aldactone), 25 MG PO DAILY Scheduled PRN Albuterol Sulfate (Ventolin Mdi), 90 MCG IN Q4HP PRN Discontinued Medications Losartan Potassium (Losartan Potassium), 1 TAB PO DAILY, (Reported) Discharge Statement: "Patient was advised to return to the ER or call 911 if any headaches, dizziness, shortness of breath, chest pain, abdominal pain, bleeding, fevers, or worsening of medical condition. Patient was counseled about treatment plan, medications, possible side effects, patientverbalized understanding. All questions were answered to the best of my ability. This discharge took greater then 30 minutes in planning, reviewing documentation, counseling the patient, and discussing with other team members." ASSESSMENT ASSESSMENT Assessment Acute on chronic HFrEF with exacerbation, EF 10% ( Echo from 01/24/2025) Bilateral pleural effusion CAD/ischemic cardiomyopathy, symptomatic Paroxysmal Atrial Fibrillation Hypokalemia, 3.1 Type 2 diabetes mellitus, HbA1c: 5.5 (05/18/2025) Hyperlipidemia Alcoholic Liver Cirrhosis History of Liver Cancer CBD adenoma s/p biliary stenting Ruled out DVT Date of Service: Jul 02, 2025 Billing Provider: ATIF NAM MD Common Visit Codes: 98928-TJX/OBS DISCH DAY >30min CONNOR TORRE RESIDENT Jul 02, 2025 11:20 ATIF NMA MD Jul 03, 2025 07:07
[2025-07-02] MEDS ORDERED: POTA-36 PO (11:34)
[2025-07-02] MEDS ORDERED: DOXY1CAP57 PO (11:34)
[2025-07-02] MEDS ORDERED: ALBUAER3 IN (11:34)
[2025-07-02] MEDS ORDERED: IPRIH INH (11:34)
[2025-07-02] MEDS ORDERED: FURO40TA4 PO (11:34)
--- NOTE | 2025-07-02 21:02 | DVHPN2 ---
Subjective [facility] DOS: 07/02/2025 Patient seen and examined at bedside. Remains on supplemental oxygen Overnight events reviewed. Changes from previous H/P or p: No Changes Objective Vitals Vital Signs Date Time Temp Pulse Resp B/P (MAP) Pulse Ox O2 Delivery O2 Flow Rate FiO2 07/02/25 11:24 60 16 100 07/02/25 11:18 Nasal Cannula 3.0 07/02/25 11:18 32 07/02/25 09:00 97.7 129/68 (88) 97.7 Intake/Output Intake and Output 07/02/25 07:00 Intake Total 1610 ml Output Total 4050 ml Balance -2440 ml Intake Oral 1510 ml IV Total 100 ml Output Urine Total 1050 ml Other 3000 ml # Voids 2 Exam Gen.: Patient lying in bed in no apparent distress. On supplemental oxygen. Head: Normocephalic, atraumatic. Eyes: EOMI/PERRLA. Ears: Normal hearing. Normal anatomy. Neck/trachea: Trachea midline, supple. Nose: Normal external anatomy. Mouth: Moist mucous membranes. Chest: Decreased air entry bilaterally. No wheezing or rhonchi. Cardiovascular: Positive S1, positive S2. Regular rate and rhythm. Abdomen: Positive bowel sounds in all 4 quadrants. Soft, non-tender, non- distended. : Deferred. Rectal: Deferred. Skin: Warm, dry. Intact. Extremities: 2+ radial pulses bilaterally. No lower extremity edema. Neuro: Awake, alert, oriented x3. No gross motor or sensory deficits. Cranial nerves II through XII intact. Gait not assessed. Laboratory Results Laboratory Tests 07/01/25 09:40 07/01/25 11:00 Microbiology Microbiology Date/Time Source Procedure Growth Status 07/01/25 16:40 Pleural Fluid Gram Stain - Final Resulted 07/01/25 16:40 Pleural Fluid Body Fluid Culture - Preliminary Resulted 06/26/25 23:18 Blood Blood Culture - Final NO GROWTH AFTER 5 DAYS OF INCUBATION. Complete Assessment/Plan Assessment/Plan Impression: Acute hypoxic respiratory failure Dependence on supplemental oxygen Acute on chronic heart failure with reduced ejection fraction, EF 10% Pleural effusion Atelectasis Elevated D-dimer, ruled out PE Alcoholic liver cirrhosis Atrial fibrillation Coronary artery disease/ischemic cardiomyopathy Hypokalemia Hx of nicotine dependence Events: Remains on supplemental oxygen, 3 LPM NC Taper O2 as tolerated No new respiratory complaints. Thoracenteses performed at the bedside yesterday with 900 mL fluid drained from the right side and 1.2 liters fluid drained from left side. Patient is stable for discharge from the pulmonary standpoint. Follow up in 1-2 weeks in Pulmonary Clinic. Monitor for pleural fluid recurrence. Labs and imaging reviewed. Rest of plan as noted below. Plan: Supplemental oxygen Titrate to keep O2 sats above 92%. CT angio ruled out pulmonary embolism. PO amiodarone for AFib On Entresto, spironolactone and metoprolol. Cardiology recs appreciated Incentive spirometry Accu-Cheks, ISS PRN. Maintain euvolemia Fluid and salt restriction Monitor renal function. Monitor electrolytes. Supplement as necessary. Monitor ins and outs. Counseled to abstain from ETOH use. Protonix for GI ppx Lovenox SC for DVT ppx. Prognosis: Poor given patient's multiple co-morbidities. Rest of plan per hospitalist and other consultants. Thank you, Dr. De La Vega, for allowing me to participate in this patient's care. Further recommendations will depend on the patient's clinical course. Please do not hesitate to contact me if you have any questions or concerns. This medical document was created using an electronic medical record system with [employer] computerized dictation system. Although these documentations are being carefully reviewed, there may still be some phonetic and typographical changes. The errors are purely typographical, due to imperfection on the software program, and do not reflect any compromise in the patient's medical care. Plan discussed with: Patient, Other (ABEBA Pedroza) Visit Coding Pulmonary Billing Provider: ENMANUEL DANG MD Date of Service if different f: Jul 02, 2025 Common Visit Codes: [id number] INP/OBS CARE(HIGH) ENMANUEL DANG MD Jul 02, 2025 21:02
[2025-07-03 14:07] LABS: Glucose, Body Fluid 118.0 mg/dL (.); LD, Body Fluid 186.0 IU/L (.)
== END 2025-07-02 13:20 | disposition home or self-care (01) | DRG 291 ==
LOC: ER 15:32 → EDBD 15:32 → UNDOADMIN 22:25 → OVERFLOW 22:25 → TELE-WESTW 06-27 15:11 → OVERFLOW 07-01 08:25 → UNDOADMIN 07-01 08:25 → OVERFLOW 07-01 08:28 → TELE-WESTW 07-01 08:28 → OVERFLOW 07-01 14:11 → TELE-WESTW 07-01 14:11
PROVIDERS: ADMIT Internal Medicine
PROC: 0W9B30Z Drainage of Left Pleural Cavity with Drainage Device, Percutaneous Approach (ICD-10-PCS; 2025-06-27)
PROC: 0W9930Z Drainage of Right Pleural Cavity with Drainage Device, Percutaneous Approach (ICD-10-PCS; principal; 2025-07-01)
PROC: 0W9B30Z Drainage of Left Pleural Cavity with Drainage Device, Percutaneous Approach (ICD-10-PCS; 2025-07-01)
DX: I11.0 Hypertensive heart disease with heart failure (principal); I50.23 Acute on chronic systolic (congestive) heart failure; J96.21 Acute and chronic respiratory failure with hypoxia; J90 Pleural effusion, not elsewhere classified; J98.11 Atelectasis; R64 Cachexia; J91.8 Pleural effusion in other conditions classified elsewhere; I42.8 Other cardiomyopathies; K70.30 Alcoholic cirrhosis of liver without ascites; E87.6 Hypokalemia; I48.0 Paroxysmal atrial fibrillation; J44.9 Chronic obstructive pulmonary disease, unspecified; I25.10 Atherosclerotic heart disease of native coronary artery without angina pectoris; I25.5 Ischemic cardiomyopathy; E11.42 Type 2 diabetes mellitus with diabetic polyneuropathy; Z96.89 Presence of other specified functional implants; E78.5 Hyperlipidemia, unspecified; J43.9 Emphysema, unspecified; Z99.81 Dependence on supplemental oxygen; Z85.05 Personal history of malignant neoplasm of liver; Z87.891 Personal history of nicotine dependence; Z79.4 Long term (current) use of insulin; Z86.718 Personal history of other venous thrombosis and embolism; Z79.01 Long term (current) use of anticoagulants; Z79.891 Long term (current) use of opiate analgesic; Z82.49 Family history of ischemic heart disease and other diseases of the circulatory system; Z97.0 Presence of artificial eye; Z91.148 Patient's other noncompliance with medication regimen for other reason; Z79.899 Other long term (current) drug therapy; Z79.82 Long term (current) use of aspirin; Z79.84 Long term (current) use of oral hypoglycemic drugs
CPT/HCPCS: 36415; 71045; 71250; 76604; 76705; 80048; 80053; 80307; 82306; 82607; 82728; 82962; 83540; 83550; 83605; 83615; 83735; 83880; 83986; 84100; 84132; 84439; 84443; 84480; 84484; 85014; 85018; 85025; 85045; 85379; 87040; 87071; 87205; 89051; 93005; 93306; 93970; 94640; 96374; G0378; J1815; J1885; J2405; J2470

== ENCOUNTER 2025-08-03 08:17 | Inpatient (IN) | payer MEDICARE, MEDICAID ==
[~2025-08-03] VITALS: Ht 195.6 cm; Wt 64.5 kg
[~2025-08-03 08:17] MED LIST changes: +ALBUAER3 IN; -AMIO200T33 PO; -ASPI81CH59 PO; -ATOR40TA52 PO; -CIPR500T4 PO; -DOCU-265 PO; +DOXY1CAP57 PO; -ERGO1CAP23 PO; -FURO1TAB31 PO; +IPRIH INH; -METO25TA93 PO; +POTA-36 PO; -TRAM-626 PO; -ZOFR4T PO
[2025-08-03 09:22] LABS: Hemoglobin 9.7 g/dL (13.5-17.5); Nucleated Red Blood Cells % 0.1 %
[2025-08-03 09:24] LABS: Hematocrit 30.9 % (41.0-53.0); Mean Corpuscular Hemoglobin 20.7 pg (28.0-32.0); Mean Corpuscular Volume 65.8 fL (80.0-100.0)
[2025-08-03 09:25] VITALS: PULSE 61; RESP 12; O2SAT 100
[2025-08-03 09:34] LABS: Chloride 100 mmol/L (98-107); Sodium 139 mmol/L (136-145)
[2025-08-03 09:35] LABS: Anion Gap 10 (5-15); Calcium 8.8 mg/dL (8.7-10.4); Carbon Dioxide 29 mmol/L (20-31)
[2025-08-03 09:37] LABS: Potassium 2.7 mmol/L (3.5-5.1)
[2025-08-03 09:40] LABS: BUN/Creatinine Ratio 13.1 (10.0-20.0); Glucose 96 mg/dL (74-106)
[2025-08-03 09:44] LABS: Blood Urea Nitrogen 8 mg/dL (9-23)
--- NOTE | 2025-08-03 10:40 | DVH ---
CLINICAL HISTORY: weakness TECHNIQUE: Single view of the chest was obtained. COMPARISON: XY CHEST XRAY 1 VIEW on DOS: 07/01/25, CT CHEST WITHOUT CONTRAST on DOS: 06/30/25, XY CHEST XRAY 1 VIEW on DOS: 06/28/25, US CHEST ULTRASOUND on DOS: 06/27/25, XY CHEST XRAY 1 VIEW on DOS: 06/26/25 FINDINGS: There is a dual lead left chest wall pacing device. The heart size is mildly enlarged and the pulmonary vasculature appears normal. There are bibasilar opacities, likely small left larger than right pleural effusions and atelectasis. There is an unchanged rounded right lower lobe nodule. IMPRESSION: Small left larger than right pleural effusions. Unchanged large right lower lobe nodule. Given this finding does not appear present in more recent studies such as x-ray performed on May 20, 2020, consider an infectious etiology such as an abscess or traumatic etiology such as a hematoma. If better assessment is warranted, contrast enhanced CT is recommended.
--- NOTE | 2025-08-03 10:46 | ED.PDOC ---
History of Present Illness HPI Comments 74-year-old male brought in by ambulance prior medical history of CHF, COPD, diabetes, high lipids, hypertension, liver: Surgical history of PTCA and the chief complaint of chest pain. EMS report on the patient having left-sided chest tightness radiating to the right home we will which was a sudden onset u nprovoked while sleeping. Patient does have severe shortness of breath with a clip speech, and was given nitro SL with no relief in route. Does have generalized weakness and some umbilical pain. Patient does have jaundice to the left sclera and pulses weaker in the left radial than the right radial. Denies any other symptoms at this time. Denies chills, fever, N/V/D. No other associated symptoms, modifiers, recent injuries or sick contacts present at this time. Chief Complaint: Chest Pain Time Seen by MD: 10:45 Primary Care Provider: NONE Reviewed Notes: Nurses Notes, Medications, Allergies Allergies: Coded Allergies: NO KNOWN ALLERGIES (Unverified , 01/11/25) Home Meds Active Scripts Potassium Chloride (POTASSIUM CHLORIDE CR) 10 Meq Tb, 1 TAB PO DAILY, #30 TAB 5 Refills Prov:LINNEA BARRETT RESIDENT 07/02/25 Ipratropium [place] Hfa (Atrovent Hfa) 17 Mcg Aer, 2 PUFF INH QIDPRN for 30 Days, #12.9 GRAMS 5 Refills Prov:LINNEA BARRETT RESIDENT 07/02/25 Albuterol Sulfate (VENTOLIN MDI) 90 Mcg Ih, 90 MCG IN Q4HP PRN for 30 Days, #1 INH 2 Refills Prov:LINNEA BARRETT RESIDENT 07/02/25 Doxycycline Monohydrate (Doxycycline Monohydrate) 100 Mg Cap, 1 CAP PO BID for 7 Days, #14 CAP Prov:LINNEA BARRETT RESIDENT 07/02/25 Furosemide (Furosemide) 40 Mg Tab, 1 TAB PO DAILY for 30 Days, #30 TAB Prov:LINNEA BARRETT RESIDENT 07/02/25 Metoprolol Succinate (Metoprolol Succinate Er) 100 Mg Tab, 50 MG PO DAILY for 30 Days, #15 TAB 3 Refills Prov:DUARTE SPIVEY RESIDENT 05/31/25 Empagliflozin (Jardiance) 10 Mg Tab, 10 MG PO DAILY for 30 Days, #30 TAB Prov:[facility] 01/29/25 Spironolactone (Aldactone) 25 Mg Tab, 25 MG PO DAILY for 30 Days, #30 TAB Prov:[facility] 01/29/25 Sacubitril-Valsartan (Entresto 24-26 mg) 1 Tab Tab, 1 TAB PO BID for 30 Days, #60 TAB Prov[facility] 01/29/25 Atorvastatin Calcium (ATORVASTATIN CALCIUM) 20 Mg Tab, 40 MG PO HS for 30 Days, #30 TAB Prov:[facility] 01/29/25 Aspirin (Aspirin Low Dose) 81 Mg Tab, 81 MG PO DAILY for 30 Days, #30 TAB Prov:MAXIMINOZACK [facility] 01/29/25 Reported Medications Amlodipine Besylate (Amlodipine Besylate) 10 Mg Tab, 1 TAB PO DAILY for 30 Days, #30 07/01/25 Amiodarone HCl (Amiodarone HCl) 200 Mg Tab, 1 TAB PO DAILY for 30 Days, #30 07/01/25 Information Source: Patient Mode of Arrival: EMS Severity: Moderate Timing: Hours Duration: Since onset, Hours Prehospital treatment: 12 Lead EKG, Accucheck, Independent Trader, Oxygen Past Medical History PAST MEDICAL HISTORY: CHF, COPD, DM, High Lipids, HTN, Liver Surgical History: PTCA Family History Family History: Reviewed,noncontributory to illness, Unknown Social History Smoker: Non-Smoker, Quit Greater Than 1 Year Alcohol: Denies ETOH Use Drugs: Denies Drug Use Lives In: Home Constitutional: denies: chills, diaphoresis, fatigue, fever, malaise, sweats, weakness, others EENTM: denies: blurred vision, double vision, ear bleeding, ear discharge, ear drainage, ear pain, ear ringing, eye pain, eye redness, hearing loss, mouth pain, mouth swelling, nasal discharge, nose bleeding, nose congestion, nose pain, photophobia, tearing, throat pain, throat swelling, voice changes, others Respiratory: reports: shortness of breath; denies: cough, hemoptysis, orthopnea, SOB at rest, SOB with excertion, stridor, wheezing, others Cardiovascular: reports: chest pain; denies: dizzy spells, diaphoresis, Dyspnea on exertion, edema, irregular heart beat, left arm pain, lightheadedness, palpitations, PND, syncope, others Gastrointestinal: denies: abdomen distended, abdominal pain, blood streaked bowels, constipated, diarrhea, dysphagia, difficulty swallowing, hematemesis, melena, nausea, poor appetite, poor fluid intake, rectal bleeding, rectal pain, vomiting, others Genitourinary: denies: burning, dysuria, flank pain, frequency, hematuria, incontinence, penile discharge, penile sore, pain, testicle pain, testicle swelling, urgency, others Neurological: denies: dizziness, fainting, headache, left sided numbness, left sided weakness, numbness, paresthesia, pre-existing deficit, right sided numbness, right sided weakness, seizure, speech problems, tingling, tremors, weakness, others Musculoskeletal: denies: back pain, gout, joint pain, joint swelling, muscle pain, muscle stiffness, neck pain, others Integumetry: denies: bruises, change in color, change in hair/nails, dryness, laceration, lesions, lumps, rash, wounds, others Allergic/Immunocompromised: denies: Difficulty Healing, Frequent Infections, Hives, Itching, others Hematologic/Lymphatic: denies: anemia, blood clots, easy bleeding, easy bruising, swollen glands, others Endocrine: denies: excessive hunger, excessive sweating, excessive thirst, excessive urination, flushing, intolerance to cold, intolerance to heat, unexplained weight gain, unexplained weight loss, others Psychiatric: denies: anxiety, bipolar disorder, depression, hopeless, panic disorder, schizophrenia, sleepless, suicidal, others All Other Systems: Reviewed and Negative Physical Exam Exam Comments Jaundice of the left sclera, chronically ill-appearing General Appearance: No Apparent Distress, Normal HEENT: Normal ENT Inspection, Pharynx Normal, TMs Normal Neck: Full Range of Motion, Non-Tender, Normal, Normal Inspection Respiratory: Chest Non-Tender, Lungs Clear, No Accessory Muscle Use, No Respiratory Distress, Normal Breath Sounds Cardiovascular: No Edema, No JVD, No Murmur, No Gallop, Normal Peripheral Pulses, Regular Rate/Rhythm Breast Exam: Deferred Gastrointestinal: No Organomegaly, Non Tender, No Pulsatile Mass, Normal Bowel Sounds, Soft Genitalia: Deferred Pelvic: Deferred Rectal: Deferred Extremities: No calf tenderness, Normal capillary refill, Normal inspection, Normal range of motion, Non-tender, No pedal edema Musculoskeletal : Apperance: Normal Neurologic: Alert, jewel gauger II-XII nml as Tested, No Motor Deficits, Normal Affect, Normal Mood, No Sensory Deficits Cerebellar Function: Normal Reflexes: Normal Skin: Dry, Normal Color, Warm Lymphatic: No Adenopathy Was a procedure done? Was a procedure done?: No EKG EKG : Pulse Rate (adult): 76 [place]: Normal Cardiac Rhythm: NSR Block: None Hypertrophy: None ST: Normal Differential Dx Considerations may include: see mdm X-Ray, Labs, Meds, VS Vital Signs Date Time Temp Pulse Resp B/P (MAP) Pulse Ox O2 Delivery O2 Flow Rate FiO2 08/03/25 10:46 76 08/03/25 09:53 72 08/03/25 08:41 76 08/03/25 08:33 97.5 71 20 160/94 99 97.5 Lab Test 08/03/25 10:05 08/03/25 09:00 Range/Units Troponin I High Sensitivity Pending 12 </=54 ng/L White Blood Count 5.0 4.4-10.8 10^3/uL Red Blood Count 4.69 4.5-5.90 10^6/uL Hemoglobin 9.7 L 13.5-17.5 g/dL Hematocrit 30.9 L 41.0-53.0 % Mean Corpuscular Volume 65.8 L 80.0-100.0 fL Mean Corpuscular Hemoglobin 20.7 L 28.0-32.0 pg Mean Corpuscular Hemoglobin Concent 31.5 L 32.0-36.0 g/dL Red Cell Distribution Width 19.9 H 11.8-14.3 % Platelet Count 171 140-450 10^3/uL Mean Platelet Volume 8.2 6.9-10.8 fL Neutrophils (%) (Auto) 79.0 37.0-80.0 % Lymphocytes (%) (Auto) 12.7 10.0-50.0 % Monocytes (%) (Auto) 7.7 0.0-12.0 % Eosinophils (%) (Auto) 0.3 0.0-7.0 % Basophils (%) (Auto) 0.3 0.0-2.0 % Neutrophils # (Auto) 3.9 1.6-8.6 10 ^3/uL Lymphocytes # (Auto) 0.6 0.4-5.4 10 ^3/uL Monocytes # (Auto) 0.4 0-1.3 10 ^3/uL Eosinophils # (Auto) 0 0-0.8 10 ^3/uL Basophils # (Auto) 0 0-0.2 10 ^3/uL Nucleated Red Blood Cells 0.1 % Sodium Level 139 136-145 mmol/L Potassium Level 2.7 L 3.5-5.1 mmol/L Chloride Level 100 98-107 mmol/L Carbon Dioxide Level 29 20-31 mmol/L Anion Gap 10 5-15 Blood Urea Nitrogen 8 L 9-23 mg/dL Creatinine 0.61 L 0.700-1.30 mg/dL Glomerular Filtration Rate Calc 101 >90 mL/min BUN/Creatinine Ratio 13.1 10.0-20.0 Serum Glucose 96 74-106 mg/dL Calcium Level 8.8 8.7-10.4 mg/dL B-Type Natriuretic Peptide 2823.02 0-100 pg/mL Time of 1ST Reevaluation: 11:15 Reevaluation 1ST: Unchanged Patient Education/Counseling: Diagnosis, Treatment, Prognosis Family Education/Counseling: No Family Present SEPSIS Sepsis Screen Date sepsis recognized/suspect: Aug 03, 2025 Time Sepsis recognized/suspect: 819 Recent Procedure: No On Antibiotic Therapy: No Respiratory Rate >20: No Heart Rate >90: No Temp<36 C (96.8 F) or >38.3 C: No SBP <90 or MAP <65 mmHG: No New Acute Mental Status Change: No Is the patient on CPAP, BIPAP,: No Physician Orders Chest Portable (08/03/25 08:35) Electrocardigram (08/03/25 08:35) Urinalysis (08/03/25 08:35) Troponin-I Hs (08/03/25 09:35) Troponin-I Hs (08/03/25 11:35) Electrocardigram (08/03/25 09:35) Electrocardigram (08/03/25 11:35) Potassium Chl Paul Kcl (08/03/25 11:00) Vital Signs Date Time Temp Pulse Resp B/P (MAP) Pulse Ox O2 Delivery O2 Flow Rate FiO2 08/03/25 10:46 76 08/03/25 09:53 72 08/03/25 08:41 76 08/03/25 08:33 97.5 71 20 160/94 99 97.5 Laboratory Tests Test 08/03/25 09:00 White Blood Count 5.0 10^3/uL (4.4-10.8) Departure 1 Departure Time of Disposition: 10:55 (MEDICAL DECISION MAKING (HIGH COMPLEXITY 89610):The patient presents with acute shortness of breath and severe chest pain, raising immediate concern for acute coronary syndrome (ACS) and acute on chronic systolic heart failure. The clinical presentation represents an acute illness with risk of significant morbidity and mortality.Data Reviewed / Independent Interpretation:I independently reviewed all laboratory studies. CBC and troponin levels were within normal limits. BMP revealed hypokalemia, which increases the risk of arrhythmia, and a markedly elevated BNP, consistent with volume overload and decompensated heart failure. I independently interpreted the chest X-ray, which demonstrated bilateral pleural effusions consistent with congestive heart failure.An EKG was independently interpreted and shows no STEMI, though ACS remains a significant concern given the patients chest pain and symptom profile. A normal initial troponin does not exclude unstable angina or evolving ACS.Assessment, Differential & Management:Differential diagnoses include ACS/unstable angina, acute on chronic systolic heart failure exacerbation, pulmonary edema from volume overload, dysrhythmia related to electrolyte abnormality, pulmonary embolism, pneumonia, and pleural effusion- related dyspnea.The elevated BNP, pleural effusions, and dyspnea are consistent with acute decompensated heart failure, while severe chest pain and risk factors necessitate ongoing evaluation for ACS.Hypokalemia was addressed with repletion to reduce arrhythmia risk. Diuresis was initiated due to signs of volume overload. The patient required continuous cardiac monitoring, serial reassessments, and evaluation for potential respiratory compromise or hemodynamic instability.Given persistent severe symptoms, concern for ACS despite normal initial troponin, and evidence of heart failure exacerbation, the patient requires inpatient admission for serial cardiac enzymes, further cardiac evaluation, diuresis, and close monitoring. I coordinated care with the inpatient admitting service.CRITICAL CARE TIME: 38 MINUTESA total of 38 minutes of critical care time was provided, exclusive of separately billable procedures. Critical care was necessary due to the immediate risk of life- threatening deterioration stemming from suspected ACS, acute decompensated heart failure, severe electrolyte disturbance, and potential for respiratory failure.Critical care activities included:Continuous cardiac and respiratory monitoringIndependent interpretation of lab studies, EKG, and chest X-rayMana gement of acute hypokalemiaInitiation of diuresis for volume overloadSerial reassessment of hemodynamics and respiratory statusDevelopment and adjustment of cardiac and heart failure management plansCoordination with nursing staff and the admitting hospitalist/cardiology teamHigh-intensity medical decision making throughout the patients ED stayThe patient was at risk for sudden ca rdiopulmonary decompensation, warranting critical care.) Impression: Primary Impression: Acute on chronic systolic heart failure Additional Impressions: Acute chest pain Hypokalemia Disposition: ADMITTED INPATIENT Admit to: Tele Condition: Guarded Critical Care Note Critical Care Time?: Yes Stability Stability form required: No Heart Score Heart Score: Heart Score Response (Comments) Value History Moderate Suspicious 1 EKG Repolarization Disturb 1 Age >65 2 Risk Factors >3 or Hx ASHD 2 Troponin >3 x's Normal limit 2 Total 8 I personally scribed for MARGARITO ADAMS MD ([email or web address]) on 08/03/25 at 10:46. E lectronically submitted by Stanley Branch ([email or web address]). MARGARITO ADAMS MD Aug 03, 2025 10:46
--- NOTE | 2025-08-03 11:10 | DVHHP2 ---
Admitting Diagnosis: Chest pain History of Present Illness 74-year-old male brought in by ambulance prior medical history of CHF, COPD, diabetes, high lipids, hypertension, liver: Surgical history of PTCA and the chief complaint of chest pain. EMS report on the patient having left-sided chest tightness radiating to the right home we will which was a sudden onset unprovoked while sleeping. Patient does have severe shortness of breath with a clip speech, and was given nitro SL with no relief in route. Does have generalized weakness and some umbilical pain. Patient does have jaundice to the left sclera and pulses weaker in the left radial than the right radial. Denies any other symptoms at this time. Denies chills, fever, N/V/D. No other associated symptoms, modifiers, recent injuries or sick contacts present at this time. PAST MEDICAL HISTORY: CHF, COPD, DM, High Lipids, HTN, Liver Surgical History: PTCA Family History Family History: Reviewed,noncontributory to illness, Unknown Social History Smoker: Non-Smoker, Quit Greater Than 1 Year Alcohol: Denies ETOH Use Drugs: Denies Drug Use Lives In: Home Patient Family History: Hypertension G8 MOTHER Ischemic heart disease G8 MOTHER G8 FATHER Allergies: Coded Allergies: NO KNOWN ALLERGIES (Unverified , 01/11/25) Home Meds Active Scripts Potassium Chloride (POTASSIUM CHLORIDE CR) 10 Meq Tb, 1 TAB PO DAILY, #30 TAB 5 Refills Prov:LINNEA BARRETT RESIDENT 07/02/25 Ipratropium [place] Hfa (Atrovent Hfa) 17 Mcg Aer, 2 PUFF INH QIDPRN for 30 Days, #12.9 GRAMS 5 Refills Prov:LINNEA BARRETT [facility] 07/02/25 Albuterol Sulfate (VENTOLIN MDI) 90 Mcg Ih, 90 MCG IN Q4HP PRN for 30 Days, #1 INH 2 Refills Prov:LINNEA BARRETT [facility] 07/02/25 Doxycycline Monohydrate (Doxycycline Monohydrate) 100 Mg Cap, 1 CAP PO BID for 7 Days, #14 CAP Prov:LINNEA BARRETT [facility] 07/02/25 Furosemide (Furosemide) 40 Mg Tab, 1 TAB PO DAILY for 30 Days, #30 TAB Prov:LINNEA BARRETT [facility] 07/02/25 Metoprolol Succinate (Metoprolol Succinate Er) 100 Mg Tab, 50 MG PO DAILY for 30 Days, #15 TAB 3 Refills Prov:DUARTE SPIVEY RESIDENT 05/31/25 Empagliflozin (Jardiance) 10 Mg Tab, 10 MG PO DAILY for 30 Days, #30 TAB Prov:MENDOZA STANTON [facility] 01/29/25 Spironolactone (Aldactone) 25 Mg Tab, 25 MG PO DAILY for 30 Days, #30 TAB [facility] 01/29/25 Sacubitril-Valsartan (Entresto 24-26 mg) 1 Tab Tab, 1 TAB PO BID for 30 Days, #60 TAB Prov:[facility] 01/29/25 Atorvastatin Calcium (ATORVASTATIN CALCIUM) 20 Mg Tab, 40 MG PO HS for 30 Days, #30 TAB Prov:[facility] 01/29/25 Aspirin (Aspirin Low Dose) 81 Mg Tab, 81 MG PO DAILY for 30 Days, #30 TAB Prov:[facility] 01/29/25 Reported Medications Amlodipine Besylate (Amlodipine Besylate) 10 Mg Tab, 1 TAB PO DAILY for 30 Days, #30 07/01/25 Amiodarone HCl (Amiodarone HCl) 200 Mg Tab, 1 TAB PO DAILY for 30 Days, #30 07/01/25 Current Medications Current Medications Medications (Trade) Dose Ordered Sig/Mikki Route PRN Reason Start Time Stop Time Status Last Admin Potassium Chloride 100 ml @ 50 mls/hr Q2H IV 08/03/25 11:00 08/03/25 14:59 08/03/25 11:19 Sodium Chloride (Saline Lock Ns) 10 ml Q8HR IV 08/03/25 14:00 Docusate Sodium (Colace Capsule) 100 mg BIDPRN PRN PO FOR CONSTIPATION 08/03/25 11:15 Acetaminophen (Tylenol Tablet) 650 mg Q6HP PRN PO PAIN SCALE 1-3 OR TEMP>100.4 08/03/25 11:15 Acetaminophen/ Hydrocodone Bitart ([place] 5/325MG Tab) 1 tab Q4HP PRN PO MODERATE PAIN (4-6 PAIN SCALE) 08/03/25 11:15 Hydromorphone HCl (Dilaudid Injection) 0.5 mg Q4HP PRN IV SEVERE PAIN (7-10 PAIN SCALE) 08/03/25 11:15 Ondansetron HCl (Zofran) 4 mg Q4HP PRN IV NAUSEA / VOMITING 08/03/25 11:15 Enoxaparin Sodium (Lovenox) 40 mg DAILY SC 08/04/25 10:00 Nitroglycerin (Ntrostat Sublingual) 0.4 mg Q5MINP PRN SL FOR CHEST PAIN 08/03/25 11:15 Morphine Sulfate 2 mg Q30M PRN IV FOR CHEST PAIN 08/03/25 11:15 Albuterol (Ventolin Hfa) 90 mcg Q4HP PRN IN sob 08/03/25 11:15 08/03/25 12:12 DC Amiodarone HCl (Cordarone Tablet) 200 mg DAILY PO 08/04/25 10:00 Aspirin (Ecotrin Enteric Coated Tablet) 81 mg DAILY PO 08/04/25 10:00 Atorvastatin Calcium (Lipitor) 40 mg HS PO 08/03/25 22:00 Empaglifozin (Jardiance) 10 mg DAILY PO 08/04/25 10:00 Sacubitril/ Valsartan (Entresto 24-26 Mg tab) 1 tab BID PO 08/03/25 22:00 Spironolactone (Aldactone) 25 mg DAILY PO 08/04/25 10:00 Amlodipine Besylate (Norvasc Tablet) 10 mg DAILY PO 08/04/25 10:00 Patient Own Medication 50 mg DAILY PO 08/04/25 10:00 UNV Furosemide (Lasix Injection) 40 mg BIDD IV 08/03/25 18:00 Albuterol (Ventolin Medneb) 2.5 mg Q4HPRN PRN NEB SHORTNESS OF BREATH 08/03/25 12:15 UNV Vital Signs Vital Signs Date Time Temp Pulse Resp B/P (MAP) Pulse Ox O2 Delivery O2 Flow Rate FiO2 08/03/25 11:22 100 Room Air 0.0 08/03/25 11:22 21 08/03/25 10:46 76 08/03/25 08:33 97.5 20 160/94 97.5 Physical Exam Generally 74 years old male, well nourished well developed. No apparent distress HEENT-atraumatic normocephalic heart-regular rate and rhythm Lungs decreased breath sounds bilaterally Abdomen soft nontender nondistended Musculoskeletal-+pedal edema in lower extremity Neuro-AO x3, no focal deficit SEPSIS Sepsis Screen Date sepsis recognized/suspect: Aug 03, 2025 Time Sepsis recognized/suspect: 819 Recent Procedure: No On Antibiotic Therapy: No Respiratory Rate >20: No Heart Rate >90: No Temp<36 C (96.8 F) or >38.3 C: No SBP <90 or MAP <65 mmHG: No New Acute Mental Status Change: No Is the patient on CPAP, BIPAP,: No Physician Orders Chest Portable (08/03/25 08:35) Electrocardigram (08/03/25 08:35) Troponin-I Hs (08/03/25 11:35) Electrocardigram (08/03/25 09:35) Electrocardigram (08/03/25 11:35) Potassium Chl 20meq/100ml (08/03/25 11:00) Admit (08/03/25 11:08) Code Status (08/03/25 11:08) Vital Signs .PER UNIT PROTOCOL (08/03/25 11:08) Review Orders With Adm.Md (08/03/25 11:08) Encourage Activity As Tolerate (08/03/25 11:08) Sodium Chloride Lock (Saline Lock Ns) (08/03/25 14:00) Docusate Sodium Capsule (Colace Capsule) (08/03/25 11:15) Acetaminophen Tablet (Tylenol Tablet) (08/03/25 11:15) Notify Md Of Changes From Base (08/03/25 11:08) Advance Directive (08/03/25 11:08) Echo 2d Mode Cardiac Dop (08/03/25 11:08) Patient Condition (08/03/25 11:08) Allergies (08/03/25 11:08) Hydrocodone-Acet 5/325mg Tab ([place] 5/32 (08/03/25 11:15) Hydromorphone Injection (Dilaudid Inject (08/03/25 11:15) Ondansetron Hcl (Zofran) (08/03/25 11:15) Enoxaparin Sodium (Lovenox) (08/04/25 10:00) Nitroglycerin Sublingual (Ntrostat Subli (08/03/25 11:15) Morphine Sulfate Injection (08/03/25 11:15) Stat Ekg For Chest Pain (08/03/25 11:08) Notify Md Of Changes From Base (08/03/25 11:08) Rn Utilization Management Um For 24 Hours (08/03/25 11:08) Emergency Dysrhythmia Protocol (08/03/25 11:08) Rhythm Strips Once Every Shift (08/03/25 11:08) Oxygen By Nasal Cannula (08/03/25 11:08) Amiodarone Tablet (Cordarone Tablet) (08/04/25 10:00) Aspirin Enteric Coated Tablet (Ecotrin E (08/04/25 10:00) Atorvastatin (Lipitor) (08/03/25 22:00) Empagliflozin (Jardiance) (08/04/25 10:00) Sacubitril-Valsartan (Entresto 24-26 Mg (08/03/25 22:00) Spironolactone (Aldactone) (08/04/25 10:00) Amlodipine Tablet (Norvasc Tablet) (08/04/25 10:00) (Nf) Metoprolol Succinate (Metoprolol Alfaro (08/04/25 10:00) Daily Weight (08/03/25 11:08) Maintain Fluid Restrictions QSHIFT (08/03/25 11:08) Strict I & O QSHIFT (08/03/25 11:08) Complete Blood Count (08/04/25 05:00) Complete Blood Count (08/05/25 05:00) Complete Blood Count (08/06/25 05:00) Complete Blood Count (08/07/25 05:00) Complete Blood Count (08/08/25 05:00) Comprehensive Metabolic Panel (08/04/25 05:00) Comprehensive Metabolic Panel (08/05/25 05:00) Comprehensive Metabolic Panel (08/06/25 05:00) Comprehensive Metabolic Panel (08/07/25 05:00) Comprehensive Metabolic Panel (08/08/25 05:00) Magnesium (08/04/25 05:00) Magnesium (08/05/25 05:00) Magnesium (08/06/25 05:00) Magnesium (08/07/25 05:00) Magnesium (08/08/25 05:00) * Cardiology Consult (08/03/25 11:08) Cardiac Diet-2gna,Lofat,Lochol (08/03/25 Lunch) Furosemide Injection (Lasix Injection) (08/03/25 18:00) Albuterol Medneb (Ventolin Medneb) (08/03/25 12:15) Vital Signs Date Time Temp Pulse Resp B/P (MAP) Pulse Ox O2 Delivery O2 Flow Rate FiO2 08/03/25 11:22 100 Room Air 0.0 08/03/25 11:22 100 Room Air* 0 21 08/03/25 10:46 76 08/03/25 09:53 72 08/03/25 08:41 76 08/03/25 08:33 97.5 71 20 160/94 99 97.5 Laboratory Tests Test 08/03/25 09:00 White Blood Count 5.0 10^3/uL (4.4-10.8) Medications Medications Dose Ordered Sig/Mikki Route Start Time Stop Time Status Last Admin Dose Admin Potassium Chloride 100 ml @ 50 mls/hr Q2H IV 08/03/25 11:00 08/03/25 14:59 08/03/25 11:19 Results Labs Test 08/03/25 10:05 08/03/25 09:48 08/03/25 09:00 Range/Units Troponin I High Sensitivity 13 </=54 ng/L Urine Color Yellow Yellow Urine Clarity Clear Clear Urine pH 7.0 5.0-9.0 Urine Specific [place] 1.012 1.001-1.035 Urine Protein Negative Negative Urine Ketones Negative Negative Urine Blood Negative Negative /uL Urine Nitrite Negative Negative Urine Bilirubin Negative Negative Urine Urobilinogen 2 H Negative mg/dL Urine Leukocyte Esterase Negative Negative /uL Urine RBC <1 0 - 3 /hpf Urine Microscopic WBC 1 0-3 /HPF Urine Squamous Epithelial Cells Few <5 /hpf Urine Bacteria None seen None Seen /hpf Urine Glucose Normal Normal mg/dL White Blood Count 5.0 4.4-10.8 10^3/uL Red Blood Count 4.69 4.5-5.90 10^6/uL Hemoglobin 9.7 L 13.5-17.5 g/dL Hematocrit 30.9 L 41.0-53.0 % Mean Corpuscular Volume 65.8 L 80.0-100.0 fL Mean Corpuscular Hemoglobin 20.7 L 28.0-32.0 pg Mean Corpuscular Hemoglobin Concent 31.5 L 32.0-36.0 g/dL Red Cell Distribution Width 19.9 H 11.8-14.3 % Platelet Count 171 140-450 10^3/uL Mean Platelet Volume 8.2 6.9-10.8 fL Neutrophils (%) (Auto) 79.0 37.0-80.0 % Lymphocytes (%) (Auto) 12.7 10.0-50.0 % Monocytes (%) (Auto) 7.7 0.0-12.0 % Eosinophils (%) (Auto) 0.3 0.0-7.0 % Basophils (%) (Auto) 0.3 0.0-2.0 % Neutrophils # (Auto) 3.9 1.6-8.6 10 ^3/uL Lymphocytes # (Auto) 0.6 0.4-5.4 10 ^3/uL Monocytes # (Auto) 0.4 0-1.3 10 ^3/uL Eosinophils # (Auto) 0 0-0.8 10 ^3/uL Basophils # (Auto) 0 0-0.2 10 ^3/uL Nucleated Red Blood Cells 0.1 % Sodium Level 139 136-145 mmol/L Potassium Level 2.7 L 3.5-5.1 mmol/L Chloride Level 100 98-107 mmol/L Carbon Dioxide Level 29 20-31 mmol/L Anion Gap 10 5-15 Blood Urea Nitrogen 8 L 9-23 mg/dL Creatinine 0.61 L 0.700-1.30 mg/dL Glomerular Filtration Rate Calc 101 >90 mL/min BUN/Creatinine Ratio 13.1 10.0-20.0 Serum Glucose 96 74-106 mg/dL Calcium Level 8.8 8.7-10.4 mg/dL B-Type Natriuretic Peptide 2823.02 0-100 pg/mL Primary Diagnosis Chest pain Acute on chronic CHF Hypokalemia Plan Troponin negative x1 Chest pain intermittent resolving Check according to heart for worsening CHF IV Lasix 40 mg b.i.d. Daily weight Strict in and out Fluid restriction Resume shelter meds Cardiology consult for CHF Full code Cardiac diet Lovenox for DVT prophylaxis Plan discussed with: Patient Problems List: (1) Acute on chronic systolic heart failure (2) Acute chest pain Status: Acute Date of Service: Aug 03, 2025 Billing Provider: WENDY SILVA MD Common Visit Codes: [id number] INP/OBS CARE (HIGH) WENDY SILVA MD Aug 03, 2025 11:10
[2025-08-03] MEDS ORDERED: ONDANSETRON HCL 4 MG/2 ML VIAL IV PRN (11:15)
[2025-08-03] MEDS ORDERED: NITROGLYCERIN 0.4 MG SL TAB SL PRN (11:15)
[2025-08-03] MEDS ORDERED: ACETAMINOPHEN 325 MG TAB PO PRN (11:15)
[2025-08-03] MEDS ORDERED: HYDROcodone-ACET 5/325MG TAB PO PRN (11:15)
[2025-08-03] MEDS ORDERED: ALBUTEROL SULF HFA 90MCG INH 200DOSE IN PRN (11:15)
[2025-08-03] MEDS ORDERED: MORPHINE SULFATE INJ 2 MG/ml SYRG IV PRN (11:15)
[2025-08-03] MEDS ORDERED: HYDROmorphone HCL 2 MG/ML VL/or syr IV PRN (11:15)
[2025-08-03] MEDS: POTASSIUM CHL 20MEQ/100ML 100 ML IV SCH (11:19)
[2025-08-03 11:22] VITALS: BP 149/76; PULSE 75; RESP 16; O2SAT 100
[2025-08-03 12:05] LABS: Urine Protein, UAD Negative (Negative)
[2025-08-03] MEDS: SODIUM CHLOR 0.9% PF (SALINE LOCK) 10ML VIAL/SYR IV SCH (14:28)
[2025-08-03] MEDS: POLYETHYLENE GLYCOL 17 GM PWDR PO ONE (16:30)
[2025-08-03] MEDS: FUROSEMIDE 40 MG/4 ML VIAL IV SCH (20:10)
[2025-08-03 20:17] VITALS: O2SAT 95
[2025-08-03 21:02] VITALS: BP 147/84; PULSE 74; RESP 18; TEMP 97.5; O2SAT 95
[2025-08-03] MEDS: SACUBITRIL-VALSARTAN 24mg/26mg TAB PO SCH (22:14)
[2025-08-03] MEDS: ATORVASTATIN 20 MG TAB PO SCH (22:15)
[2025-08-04] VITALS (9 sets, daily range): BP systolic 108–139; BP diastolic 65–79; PULSE 60–72; RESP 18–20; TEMP 96.6–98.2; O2SAT 95–100
[2025-08-04] MEDS: ENOXAPARIN SOD 40 MG/0.4 ML SYRINGE SC SCH (08:50)
[2025-08-04] MEDS: ASPirin-EC 81 mg tab PO SCH (08:51)
[2025-08-04] MEDS: EMPAGLIFLOZIN 10 MG TAB PO SCH (08:51)
[2025-08-04] MEDS: AMIODARONE HCL 200 MG TAB PO SCH (08:51)
[2025-08-04] MEDS: SPIRONOLACTONE 25 MG TAB PO SCH (08:51)
[2025-08-04] MEDS: METOPROLOL SUCCINATE XL 50 MG TAB PO SCH (11:00)
--- NOTE | 2025-08-04 11:48 | DVHPN2 ---
Reviewed: Care Plan, H&P, Labs, Medications, Previous Orders, Radiology Changes from previous H/P or p: No Changes Objective Vitals Vital Signs Date Time Temp Pulse Resp B/P (MAP) Pulse Ox O2 Delivery O2 Flow Rate FiO2 08/04/25 11:00 75 102/55 08/04/25 10:00 98 Nasal Cannula 3.0 08/04/25 10:00 N/A 08/04/25 08:00 98.2 18 98.2 Intake/Output Intake and Output 08/04/25 07:00 Intake Total 200 ml Output Total 1000 ml Balance -800 ml Intake Oral 0 ml IV Total 200 ml Output Urine Total 1000 ml Medications Current Medications Medications Dose Ordered Sig/Mikki Route Start Time Stop Time Status Last Admin Dose Admin Sodium Chloride 10 ml Q8HR IV 08/03/25 14:00 08/04/25 06:00 10 ML Docusate Sodium 100 mg BIDPRN PRN PO 08/03/25 11:15 Acetaminophen 650 mg Q6HP PRN PO 08/03/25 11:15 Acetaminophen/ Hydrocodone Bitart 1 tab Q4HP PRN PO 08/03/25 11:15 Hydromorphone HCl 0.5 mg Q4HP PRN IV 08/03/25 11:15 Ondansetron HCl 4 mg Q4HP PRN IV 08/03/25 11:15 Enoxaparin Sodium 40 mg DAILY SC 08/04/25 10:00 08/04/25 08:50 40 MG Nitroglycerin 0.4 mg Q5MINP PRN SL 08/03/25 11:15 Morphine Sulfate 2 mg Q30M PRN IV 08/03/25 11:15 Amiodarone HCl 200 mg DAILY PO 08/04/25 10:00 08/04/25 08:51 200 MG Aspirin 81 mg DAILY PO 08/04/25 10:00 08/04/25 08:51 81 MG Atorvastatin Calcium 40 mg HS PO 08/03/25 22:00 08/03/25 22:15 40 MG Empaglifozin 10 mg DAILY PO 08/04/25 10:00 08/04/25 08:51 10 MG Sacubitril/ Valsartan 1 tab BID PO 08/03/25 22:00 08/04/25 08:50 1 TAB Spironolactone 25 mg DAILY PO 08/04/25 10:00 08/04/25 08:51 25 MG Amlodipine Besylate 10 mg DAILY PO 08/04/25 10:00 08/04/25 08:52 10 MG Metoprolol Succinate 50 mg DAILY PO 08/04/25 10:00 08/04/25 11:00 50 MG Furosemide 40 mg BIDD IV 08/03/25 18:00 Albuterol 2.5 mg Q4HPRN PRN NEB 08/03/25 12:15 Laboratory Results Laboratory Tests 08/03/25 09:00 08/03/25 19:16 Urinalysis Test 08/03/25 09:48 Urine Color Yellow (Yellow) Urine Clarity Clear (Clear) Urine pH 7.0 (5.0-9.0) Urine Specific [place] 1.012 (1.001-1.035) Urine Protein Negative (Negative) Urine Ketones Negative (Negative) Urine Blood Negative /uL (Negative) Urine Nitrite Negative (Negative) Urine Bilirubin Negative (Negative) Urine Urobilinogen 2 mg/dL (Negative) H Urine Leukocyte Esterase Negative /uL (Negative) Urine RBC <1 /hpf (0 - 3) Urine Microscopic WBC 1 /HPF (0-3) Urine Squamous Epithelial Cells Few /hpf (<5) Urine Bacteria None seen /hpf (None Seen) Urine Glucose Normal mg/dL (Normal) Labs and/or images reviewed: Labs reviewed by me, Image(s) reviewed by me Assessment/Plan Assessment/Plan Acute on chronic HFrEF with exacerbation, EF 10% ( Echo from 01/24/2025) Lasix 40 mg IV b.i.d. consult for Dr. Kapoor CAD/ischemic cardiomyopathy, symptomatic Paroxysmal Atrial Fibrillation Type 2 diabetes mellitus, HbA1c: 5.5 (05/18/2025) Hyperlipidemia Alcoholic Liver Cirrhosis History of Liver Cancer CBD adenoma s/p biliary stenting Time spent 70 minutes Advanced care time 20 minutes Patient is full code Plan discussed with: Patient Date of Service: Aug 04, 2025 Billing Provider: WILFRED CALL MD Common Visit Codes: [id number] CARE 30-74 MIN WILFRED CALL MD Aug 04, 2025 11:48
[2025-08-04 17:49] LABS: Hemoglobin 10.0 g/dL (13.5-17.5); Nucleated Red Blood Cells % 0.1 %
[2025-08-04 17:51] LABS: Hematocrit 31.4 % (41.0-53.0); Mean Corpuscular Hemoglobin 20.7 pg (28.0-32.0); Mean Corpuscular Volume 65.4 fL (80.0-100.0)
[2025-08-04 17:58] LABS: Anion Gap 9 (5-15); BUN/Creatinine Ratio 20.6 (10.0-20.0); Blood Urea Nitrogen 14 mg/dL (9-23); Carbon Dioxide 27 mmol/L (20-31); Chloride 102 mmol/L (98-107); Glucose 98 mg/dL (74-106); Magnesium 2.0 mg/dL (1.6-2.6); Sodium 138 mmol/L (136-145); Total Protein 6.7 g/dL (5.7-8.2)
[2025-08-04 18:07] LABS: Alanine Aminotransferase 74 U/L (7-40); Albumin 2.8 g/dL (3.2-4.8); Alkaline Phosphatase 1053 U/L (46-116); Bilirubin, Total 2.4 mg/dL (0.2-1.0); Calcium 8.4 mg/dL (8.7-10.4); Potassium 3.3 mmol/L (3.5-5.1)
--- NOTE | 2025-08-04 22:16 | DVHINCON2 ---
Date of service: Aug 04, 2025 Referring Physician Nick Reason for Consultation CHF exacerbation History of Present Illness This is a 74-year-old male who was brought in by ambulance with a past medical history of CHF, COPD, diabetes, high lipids, hypertension, liver who presented to the ED with a complaint of chest pain. EMS report on the patient having left- sided chest tightness radiating to the right home we will which was a sudden onset unprovoked while sleeping. Patient does have severe shortness of breath with a clip speech, and was given nitro SL with no relief in route. Does have generalized weakness and some umbilical pain. Patient does have jaundice to the left sclera and pulses weaker in the left radial than the right radial. K 3.3, CA 8.4, AST 117, ALT 74. Chest x-ray shows small left larger than right pleural effusions,unchanged large right lower lobe nodule. EKG is NSR at 76. Patient was admitted to the hospital. I am asked to consult on this patient. Family History: Hypertension G8 MOTHER Ischemic heart disease G8 MOTHER G8 FATHER Allergies: Coded Allergies: NO KNOWN ALLERGIES (Unverified , 01/11/25) Home Meds Active Scripts Potassium Chloride (POTASSIUM CHLORIDE CR) 10 Meq Tb, 1 TAB PO DAILY, #30 TAB 5 Refills Prov:LINNEA BARRETT RESIDENT 07/02/25 Ipratropium [place] Hfa (Atrovent Hfa) 17 Mcg Aer, 2 PUFF INH QIDPRN for 30 Days, #12.9 GRAMS 5 Refills Prov:LINNEA BARRETT RESIDENT 07/02/25 Albuterol Sulfate (VENTOLIN MDI) 90 Mcg Ih, 90 MCG IN Q4HP PRN for 30 Days, #1 INH 2 Refills Prov:LINNEA BARRETT RESIDENT 07/02/25 Doxycycline Monohydrate (Doxycycline Monohydrate) 100 Mg Cap, 1 CAP PO BID for 7 Days, #14 CAP Prov:LINNEA BARRETT RESIDENT 07/02/25 Furosemide (Furosemide) 40 Mg Tab, 1 TAB PO DAILY for 30 Days, #30 TAB Prov:LINNEA BARRETT RESIDENT 07/02/25 Metoprolol Succinate (Metoprolol Succinate Er) 100 Mg Tab, 50 MG PO DAILY for 30 Days, #15 TAB 3 Refills Prov:DUARTE SPIVEY RESIDENT 05/31/25 Empagliflozin (Jardiance) 10 Mg Tab, 10 MG PO DAILY for 30 Days, #30 TAB [facility]/25 Spironolactone (Aldactone) 25 Mg Tab, 25 MG PO DAILY for 30 Days, #30 TAB [facility]/25 Sacubitril-Valsartan (Entresto 24-26 mg) 1 Tab Tab, 1 TAB PO BID for 30 Days, #60 TAB [facility] 01/29/25 Atorvastatin Calcium (ATORVASTATIN CALCIUM) 20 Mg Tab, 40 MG PO HS for 30 Days, #30 TAB Prov:[facility] 01/29/25 Aspirin (Aspirin Low Dose) 81 Mg Tab, 81 MG PO DAILY for 30 Days, #30 TAB [facility] 01/29/25 Reported Medications Amlodipine Besylate (Amlodipine Besylate) 10 Mg Tab, 1 TAB PO DAILY for 30 Days, #30 07/01/25 Amiodarone HCl (Amiodarone HCl) 200 Mg Tab, 1 TAB PO DAILY for 30 Days, #30 07/01/25 Current Medications Current Medications Medications (Trade) Dose Ordered Sig/Mikki Route PRN Reason Start Time Stop Time Status Last Admin Enoxaparin Sodium (Lovenox) 40 mg DAILY SC 08/04/25 10:00 08/04/25 08:50 Amiodarone HCl (Cordarone Tablet) 200 mg DAILY PO 08/04/25 10:00 08/04/25 08:51 Aspirin (Ecotrin Enteric Coated Tablet) 81 mg DAILY PO 08/04/25 10:00 08/04/25 08:51 Atorvastatin Calcium (Lipitor) 40 mg HS PO 08/03/25 22:00 08/03/25 22:15 Empaglifozin (Jardiance) 10 mg DAILY PO 08/04/25 10:00 08/04/25 08:51 Sacubitril/ Valsartan (Entresto 24-26 Mg tab) 1 tab BID PO 08/03/25 22:00 08/04/25 08:50 Spironolactone (Aldactone) 25 mg DAILY PO 08/04/25 10:00 08/04/25 08:51 Amlodipine Besylate (Norvasc Tablet) 10 mg DAILY PO 08/04/25 10:00 08/04/25 08:52 Metoprolol Succinate (Toprol Xl) 50 mg DAILY PO 08/04/25 10:00 08/04/25 11:00 Review of Systems Constitutional: denies: chills, diaphoresis, fatigue, fever, malaise, sweats, weakness, others EENTM: denies: blurred vision, double vision, ear bleeding, ear discharge, ear drainage, ear pain, ear ringing, eye pain, eye redness, hearing loss, mouth pain, mouth swelling, nasal discharge, nose bleeding, nose congestion, nose pain, photophobia, tearing, throat pain, throat swelling, voice changes, others Respiratory: reports: shortness of breath; denies: cough, hemoptysis, orthopnea, SOB at rest, SOB with excertion, stridor, wheezing, others Cardiovascular: reports: chest pain; denies: dizzy spells, diaphoresis, Dyspnea on exertion, edema, irregular heart beat, left arm pain, lightheadedness, palpitations, PND, syncope, others Gastrointestinal: denies: abdomen distended, abdominal pain, blood streaked bowels, constipated, diarrhea, dysphagia, difficulty swallowing, hematemesis, melena, nausea, poor appetite, poor fluid intake, rectal bleeding, rectal pain, vomiting, others Genitourinary: denies: burning, dysuria, flank pain, frequency, hematuria, incontinence, penile discharge, penile sore, pain, testicle pain, testicle swelling, urgency, others Neurological: denies: dizziness, fainting, headache, left sided numbness, left sided weakness, numbness, paresthesia, pre-existing deficit, right sided numbness, right sided weakness, seizure, speech problems, tingling, tremors, weakness, others Musculoskeletal: denies: back pain, gout, joint pain, joint swelling, muscle pain, muscle stiffness, neck pain, others Integumetry: denies: bruises, change in color, change in hair/nails, dryness, laceration, lesions, lumps, rash, wounds, others Allergic/Immunocompromised: denies: Difficulty Healing, Frequent Infections, Hives, Itching, others Hematologic/Lymphatic: denies: anemia, blood clots, easy bleeding, easy bruising, swollen glands, others Endocrine: denies: excessive hunger, excessive sweating, excessive thirst, excessive urination, flushing, intolerance to cold, intolerance to heat, unexplained weight gain, unexplained weight loss, others Psychiatric: denies: anxiety, bipolar disorder, depression, hopeless, panic disorder, schizophrenia, sleepless, suicidal, others All Other Systems: Reviewed and Negative Vital Signs Vital Signs Date Time Temp Pulse Resp B/P (MAP) Pulse Ox O2 Delivery O2 Flow Rate FiO2 08/04/25 21:00 96.6 60 18 116/67 (83) 98 96.6 08/04/25 10:00 Nasal Cannula 3.0 08/04/25 10:00 N/A Physical Exam GENERAL: Alert and oriented x 3. No acute distress. Jaundice of the left sclera, chronically ill-appearing. EYES: PERRL, EOMI. Anicteric. HENT: Moist mucous membranes. LUNGS: Clear to auscultation bilaterally. CARDIOVASCULAR: Regular rate and rhythm. ABDOMEN: Soft, nontender and nondistended. EXTREMITIES: No edema. NEUROLOGIC: No focal neurological deficits. SKIN: Warm, dry. Labs/Diagnostic Data Labs Test 08/04/25 17:34 08/03/25 13:08 08/03/25 09:48 08/03/25 09:00 Range/Units White Blood Count 5.8 4.4-10.8 10^3/uL Red Blood Count 4.81 4.5-5.90 10^6/uL Hemoglobin 10.0 L 13.5-17.5 g/dL Hematocrit 31.4 L 41.0-53.0 % Mean Corpuscular Volume 65.4 L 80.0-100.0 fL Mean Corpuscular Hemoglobin 20.7 L 28.0-32.0 pg Mean Corpuscular Hemoglobin Concent 31.7 L 32.0-36.0 g/dL Red Cell Distribution Width 20.2 H 11.8-14.3 % Platelet Count 203 140-450 10^3/uL Mean Platelet Volume 8.3 6.9-10.8 fL Neutrophils (%) (Auto) 76.1 37.0-80.0 % Lymphocytes (%) (Auto) 13.2 10.0-50.0 % Monocytes (%) (Auto) 9.4 0.0-12.0 % Eosinophils (%) (Auto) 0.8 0.0-7.0 % Basophils (%) (Auto) 0.5 0.0-2.0 % Neutrophils # (Auto) 4.4 1.6-8.6 10 ^3/uL Lymphocytes # (Auto) 0.8 0.4-5.4 10 ^3/uL Monocytes # (Auto) 0.5 0-1.3 10 ^3/uL Eosinophils # (Auto) 0 0-0.8 10 ^3/uL Basophils # (Auto) 0 0-0.2 10 ^3/uL Nucleated Red Blood Cells 0.1 % Sodium Level 138 136-145 mmol/L Potassium Level 3.3 L 3.5-5.1 mmol/L Chloride Level 102 98-107 mmol/L Carbon Dioxide Level 27 20-31 mmol/L Anion Gap 9 5-15 Blood Urea Nitrogen 14 9-23 mg/dL Creatinine 0.68 L 0.700-1.30 mg/dL Glomerular Filtration Rate Calc 98 >90 mL/min BUN/Creatinine Ratio 20.6 H 10.0-20.0 Serum Glucose 98 74-106 mg/dL Calcium Level 8.4 L 8.7-10.4 mg/dL Magnesium Level 2.0 1.6-2.6 mg/dL Total Bilirubin 2.4 H 0.2-1.0 mg/dL Aspartate Amino Transferase (AST) 117 H 13-40 U/L Alanine Aminotransferase (ALT) 74 H 7-40 U/L Alkaline Phosphatase 1053 H 46-116 U/L Total Protein 6.7 5.7-8.2 g/dL Albumin 2.8 L 3.2-4.8 g/dL Troponin I High Sensitivity 13 </=54 ng/L Urine Color Yellow Yellow Urine Clarity Clear Clear Urine pH 7.0 5.0-9.0 Urine Specific [place] 1.012 1.001-1.035 Urine Protein Negative Negative Urine Ketones Negative Negative Urine Blood Negative Negative /uL Urine Nitrite Negative Negative Urine Bilirubin Negative Negative Urine Urobilinogen 2 H Negative mg/dL Urine Leukocyte Esterase Negative Negative /uL Urine RBC <1 0 - 3 /hpf Urine Microscopic WBC 1 0-3 /HPF Urine Squamous Epithelial Cells Few <5 /hpf Urine Bacteria None seen None Seen /hpf Urine Glucose Normal Normal mg/dL B-Type Natriuretic Peptide 2823.02 0-100 pg/mL Assessment Acute on chronic HFrEF with exacerbation, EF 10% ( Echo from 01/24/2025). CAD/ischemic cardiomyopathy, symptomatic. Paroxysmal Atrial Fibrillation. Type 2 diabetes mellitus. Hyperlipidemia. Alcoholic Liver Cirrhosis. History of Liver Cancer. CBD adenoma s/p biliary stenting. Plan/Recommendation I agree with your ongoing assessment and care of plan. Echocardiogram. Dilaudid and [place] for pain management. Amiodarone. Amlodipine. Aspirin, Lipitor, Metoprolol. DVT prophylactics. Diuretics with Lasix. Additional plan as per the hospital course. A total of 45 minutes was spent reviewing the patient record, examining the patient, making a diagnostic and therapeutic plan, discussing this plan with medical personnel, following up on diagnostic studies and following the patient for clinical stability excluding any and all procedures. At least 50% of this ti me was spent in direct, [id number] contact. Plan discussed with: Patient RENATA PEDRAZA MD Aug 04, 2025 21:58
[2025-08-05] VITALS (11 sets, daily range): BP systolic 111–132; BP diastolic 57–74; PULSE 60–80; RESP 16–20; TEMP 96.3–97.9; O2SAT 95–100
[2025-08-05 06:34] LABS: Anion Gap 7 (5-15); BUN/Creatinine Ratio 18.8 (10.0-20.0); Blood Urea Nitrogen 12 mg/dL (9-23); Carbon Dioxide 28 mmol/L (20-31); Chloride 102 mmol/L (98-107); Glucose 77 mg/dL (74-106); Magnesium 2.1 mg/dL (1.6-2.6); Potassium 3.7 mmol/L (3.5-5.1); Sodium 137 mmol/L (136-145); Total Protein 6.6 g/dL (5.7-8.2)
[2025-08-05 06:35] LABS: Hemoglobin 9.4 g/dL (13.5-17.5); Mean Corpuscular Hemoglobin 21.0 pg (28.0-32.0); Nucleated Red Blood Cells % 0.1 %
[2025-08-05 06:38] LABS: Hematocrit 29.2 % (41.0-53.0); Mean Corpuscular Volume 65.2 fL (80.0-100.0)
[2025-08-05 06:41] LABS: Alanine Aminotransferase 75 U/L (7-40); Albumin 2.8 g/dL (3.2-4.8); Bilirubin, Total 2.7 mg/dL (0.2-1.0); Calcium 8.4 mg/dL (8.7-10.4)
[2025-08-05 06:44] LABS: Alkaline Phosphatase 1036 U/L (46-116)
--- NOTE | 2025-08-05 09:27 | ECG ---
[facility] Test Date: 2025-08-03 Test Time: 09:53:00 Pat Name: TIM NULL Department: ED Room: 0216T B Gender: M Laboratory Associate: THERESA : 1950 Requested By: MARGARITO ADAMS Order Number: [id number] Reading MD: Hardeep Tate Measurements Intervals [place] Rate: 72 P: -8 VA: 233 QRS: -16 QRSD: 105 T: -57 QT: 508 QTc: 557 Interpretive Statements Sinus rhythm Multiform ventricular premature complexes Prolonged VA interval RSR' in V1 or V2, probably normal variant LVH w/ repol abnormalities, possible ischemia Prolonged QT interval Electronically Signed On 08-06-2025 17:50:11 PST by Hardeep Tate Please click the below link to view image of tracing.
--- NOTE | 2025-08-05 09:28 | ECG ---
[facility] Test Date: 2025-08-03 Test Time: 08:41:31 Pat Name: TIM NULL Department: ED Room: 0216T B Gender: M Endocrinology Specialist: becca : 1950 Requested By: MARGARITO ADAMS Order Number: [id number] Reading MD: Hardeep Tate Measurements Intervals [place] Rate: 76 P: 54 VA: 216 QRS: 23 QRSD: 103 T: 0 QT: 368 QTc: 414 Interpretive Statements Sinus rhythm Ventricular bigeminy Borderline prolonged VA interval LVH with secondary repolarization abnormality Electronically Signed On 08-06-2025 17:50:02 PST by Hardeep Tate Please click the below link to view image of tracing.
--- NOTE | 2025-08-05 09:48 | DVHPN2 ---
Reviewed: Care Plan, H&P, Labs, Medications, Previous Orders, Radiology Changes from previous H/P or p: No Changes Objective Vitals Vital Signs Date Time Temp Pulse Resp B/P (MAP) Pulse Ox O2 Delivery O2 Flow Rate FiO2 08/05/25 09:08 61 130/73 08/05/25 01:00 96.3 18 98 96.3 08/04/25 22:15 Room Air 0.0 08/04/25 22:15 21 Intake/Output Intake and Output 08/05/25 07:00 Intake Total 1190 ml Output Total 1200 ml Balance -10 ml Intake Oral 1190 ml Output Urine Total 1200 ml # Voids 2 # Bowel Movements 1 Medications Current Medications Medications Dose Ordered Sig/Mikki Route Start Time Stop Time Status Last Admin Dose Admin Sodium Chloride 10 ml Q8HR IV 08/03/25 14:00 08/05/25 05:17 10 ML Docusate Sodium 100 mg BIDPRN PRN PO 08/03/25 11:15 Acetaminophen 650 mg Q6HP PRN PO 08/03/25 11:15 Acetaminophen/ Hydrocodone Bitart 1 tab Q4HP PRN PO 08/03/25 11:15 Hydromorphone HCl 0.5 mg Q4HP PRN IV 08/03/25 11:15 Ondansetron HCl 4 mg Q4HP PRN IV 08/03/25 11:15 Enoxaparin Sodium 40 mg DAILY SC 08/04/25 10:00 08/05/25 09:09 40 MG Nitroglycerin 0.4 mg Q5MINP PRN SL 08/03/25 11:15 Morphine Sulfate 2 mg Q30M PRN IV 08/03/25 11:15 Amiodarone HCl 200 mg DAILY PO 08/04/25 10:00 08/05/25 09:08 200 MG Aspirin 81 mg DAILY PO 08/04/25 10:00 08/05/25 09:07 81 MG Atorvastatin Calcium 40 mg HS PO 08/03/25 22:00 08/03/25 22:15 40 MG Empaglifozin 10 mg DAILY PO 08/04/25 10:00 08/05/25 09:08 10 MG Sacubitril/ Valsartan 1 tab BID PO 08/03/25 22:00 08/05/25 09:07 1 TAB Spironolactone 25 mg DAILY PO 08/04/25 10:00 08/05/25 09:07 25 MG Amlodipine Besylate 10 mg DAILY PO 08/04/25 10:00 08/05/25 09:08 10 MG Metoprolol Succinate 50 mg DAILY PO 08/04/25 10:00 08/05/25 09:08 50 MG Furosemide 40 mg BIDD IV 08/03/25 18:00 Albuterol 2.5 mg Q4HPRN PRN NEB 08/03/25 12:15 Laboratory Results Laboratory Tests 08/05/25 05:48 Chemistry Test 08/04/25 17:34 08/05/25 05:48 Albumin 2.8 g/dL (3.2-4.8) L 2.8 g/dL (3.2-4.8) L Calcium Level 8.4 mg/dL (8.7-10.4) L 8.4 mg/dL (8.7-10.4) L Magnesium Level 2.0 mg/dL (1.6-2.6) 2.1 mg/dL (1.6-2.6) Total Protein 6.7 g/dL (5.7-8.2) 6.6 g/dL (5.7-8.2) LFT Test 08/04/25 17:34 08/05/25 05:48 Alanine Aminotransferase (ALT) 74 U/L (7-40) H 75 U/L (7-40) H Alkaline Phosphatase 1053 U/L (46-116) H 1036 U/L (46-116) H Aspartate Amino Transferase (AST) 117 U/L (13-40) H 128 U/L (13-40) H Total Bilirubin 2.4 mg/dL (0.2-1.0) H 2.7 mg/dL (0.2-1.0) H Urinalysis Test 08/03/25 09:48 Urine Color Yellow (Yellow) Urine Clarity Clear (Clear) Urine pH 7.0 (5.0-9.0) Urine Specific [place] 1.012 (1.001-1.035) Urine Protein Negative (Negative) Urine Ketones Negative (Negative) Urine Blood Negative /uL (Negative) Urine Nitrite Negative (Negative) Urine Bilirubin Negative (Negative) Urine Urobilinogen 2 mg/dL (Negative) H Urine Leukocyte Esterase Negative /uL (Negative) Urine RBC <1 /hpf (0 - 3) Urine Microscopic WBC 1 /HPF (0-3) Urine Squamous Epithelial Cells Few /hpf (<5) Urine Bacteria None seen /hpf (None Seen) Urine Glucose Normal mg/dL (Normal) Labs and/or images reviewed: Labs reviewed by me, Image(s) reviewed by me Assessment/Plan Assessment/Plan Acute on chronic HFrEF with exacerbation, EF 10% ( Echo from 01/24/2025) Lasix 40 mg IV b.i.d. consult for Dr. Kapoor appreciated CAD/ischemic cardiomyopathy, symptomatic Paroxysmal Atrial Fibrillation Type 2 diabetes mellitus, HbA1c: 5.5 (05/18/2025) Hyperlipidemia Alcoholic Liver Cirrhosis History of Liver Cancer CBD adenoma s/p biliary stenting History of polysubstance abuse in the past Time spent 50 minutes Advanced care time 20 minutes Patient is full code Does not want to go on hospice at this time Plan discussed with: Patient My Orders Orders - WILFRED CALL MD Procedure Category Date Status Time * Cardiology Consult CONS 08/04/25 Transmitted 11:49 Date of Service: Aug 05, 2025 Billing Provider: WILFRED CALL MD Common Visit Codes: [id number] INP/OBS CARE(HIGH) WILFRED CALL MD Aug 05, 2025 09:48
[2025-08-05] MEDS: ALBUTEROL SULF 2.5 MG/0.5ML(0.5%) NEB SOLN NEB PRN (22:28)
--- NOTE | 2025-08-05 23:47 | DVHPN2 ---
Progress Note - Dictate Date Seen: Aug 05, 2025 Medical Necessity Reason Pt with a Central, PICC or Fol: No Subjective Patient was seen and evaluated in follow up. Patient is on 2 LPM NC. Patient reports improvement in chest pain. HGB 9.4, HCT 29.2, AST 128, ALT 70, ALK PHOS 1036. Telemetry reviewed. vital signs Vital Sign Date Time Temp Pulse Resp B/P (MAP) Pulse Ox O2 Delivery O2 Flow Rate FiO2 08/05/25 22:34 63 20 100 08/05/25 22:28 Nasal Cannula 2.0 08/05/25 22:28 28 08/05/25 21:00 97.5 111/57 (75) 97.5 Total Intake and Output 08/04/25 08/04/25 08/05/25 15:00 23:00 07:00 Intake Total 480 ml 360 ml 350 ml Output Total 400 ml 800 ml Balance 480 ml -40 ml -450 ml medications Current Medications Medications Dose Ordered Sig/Mikki Route Start Time Stop Time Status Last Admin Dose Admin Sodium Chloride 10 ml Q8HR IV 08/03/25 14:00 08/05/25 13:00 10 ML Docusate Sodium 100 mg BIDPRN PRN PO 08/03/25 11:15 Acetaminophen 650 mg Q6HP PRN PO 08/03/25 11:15 Acetaminophen/ Hydrocodone Bitart 1 tab Q4HP PRN PO 08/03/25 11:15 Hydromorphone HCl 0.5 mg Q4HP PRN IV 08/03/25 11:15 Ondansetron HCl 4 mg Q4HP PRN IV 08/03/25 11:15 Enoxaparin Sodium 40 mg DAILY SC 08/04/25 10:00 08/05/25 09:09 40 MG Nitroglycerin 0.4 mg Q5MINP PRN SL 08/03/25 11:15 Morphine Sulfate 2 mg Q30M PRN IV 08/03/25 11:15 Amiodarone HCl 200 mg DAILY PO 08/04/25 10:00 08/05/25 09:08 200 MG Aspirin 81 mg DAILY PO 08/04/25 10:00 08/05/25 09:07 81 MG Atorvastatin Calcium 40 mg HS PO 08/03/25 22:00 08/05/25 21:29 40 MG Empaglifozin 10 mg DAILY PO 08/04/25 10:00 08/05/25 09:08 10 MG Sacubitril/ Valsartan 1 tab BID PO 08/03/25 22:00 08/05/25 21:28 1 TAB Spironolactone 25 mg DAILY PO 08/04/25 10:00 08/05/25 09:07 25 MG Amlodipine Besylate 10 mg DAILY PO 08/04/25 10:00 08/05/25 09:08 10 MG Metoprolol Succinate 50 mg DAILY PO 08/04/25 10:00 08/05/25 09:08 50 MG Furosemide 40 mg BIDD IV 08/03/25 18:00 08/05/25 16:42 40 MG Albuterol 2.5 mg Q4HPRN PRN NEB 08/03/25 12:15 08/05/25 22:28 2.5 MG objective GENERAL: Alert and oriented x 3. No acute distress. Jaundice of the left sclera, chronically ill-appearing. EYES: PERRL, EOMI. Anicteric. HENT: Moist mucous membranes. LUNGS: Clear to auscultation bilaterally. CARDIOVASCULAR: Regular rate and rhythm. ABDOMEN: Soft, nontender and nondistended. EXTREMITIES: No edema. NEUROLOGIC: No focal neurological deficits. SKIN: Warm, dry. laboratory and microbiology Laboratory Tests 08/05/25 05:48 Test 08/05/25 05:48 Range/Units Serum Glucose 77 74-106 mg/dL Problem List Acute on chronic HFrEF with exacerbation, EF 10% ( Echo from 01/24/2025). CAD/ischemic cardiomyopathy, symptomatic. Paroxysmal Atrial Fibrillation. Type 2 diabetes mellitus. Hyperlipidemia. Alcoholic Liver Cirrhosis. History of Liver Cancer. CBD adenoma s/p biliary stenting. Assessment/Plan Continued all current supportive medical care. Echocardiogram. Dilaudid and [place] for pain management. Amiodarone. Amlodipine. Aspirin, Lipitor, Metoprolol. DVT prophylactics. Diuretics with Lasix. Nitro SL. Additional plan as per the hospital course. Plan discussed with: Patient RENATA PEDRAZA MD Aug 05, 2025 23:47
[2025-08-06] VITALS (8 sets, daily range): BP systolic 111; BP diastolic 61–62; PULSE 60–75; RESP 18; TEMP 97.9; O2SAT 95–100
[2025-08-06] MEDS: DOCUSATE SOD 100 MG CAP PO PRN (03:43)
[2025-08-06 07:20] LABS: Hematocrit 29.6 % (41.0-53.0); Hemoglobin 9.6 g/dL (13.5-17.5); Mean Corpuscular Hemoglobin 21.2 pg (28.0-32.0); Mean Corpuscular Volume 65.2 fL (80.0-100.0); Nucleated Red Blood Cells % 0.1 %
[2025-08-06 08:01] LABS: Anion Gap 10 (5-15); BUN/Creatinine Ratio 19.7 (10.0-20.0); Blood Urea Nitrogen 13 mg/dL (9-23); Calcium 8.7 mg/dL (8.7-10.4); Carbon Dioxide 28 mmol/L (20-31); Chloride 99 mmol/L (98-107); Magnesium 2.1 mg/dL (1.6-2.6); Potassium 3.7 mmol/L (3.5-5.1); Sodium 137 mmol/L (136-145); Total Protein 7.0 g/dL (5.7-8.2)
[2025-08-06 08:02] LABS: Alanine Aminotransferase 81 U/L (7-40); Albumin 3.0 g/dL (3.2-4.8); Bilirubin, Total 2.4 mg/dL (0.2-1.0); Glucose 73 mg/dL (74-106)
[2025-08-06 08:15] LABS: Alkaline Phosphatase 1099 U/L (46-116)
--- NOTE | 2025-08-06 09:39 | DVHPN2 ---
Reviewed: Care Plan, H&P, Labs, Medications, Previous Orders, Radiology Changes from previous H/P or p: No Changes Objective Vitals Vital Signs Date Time Temp Pulse Resp B/P (MAP) Pulse Ox O2 Delivery O2 Flow Rate FiO2 08/06/25 09:17 111/61 08/06/25 09:16 60 08/06/25 08:50 97.9 18 100 97.9 08/06/25 07:39 Nasal Cannula* 3 32 Intake/Output Intake and Output 08/06/25 07:00 Intake Total 1060 ml Output Total 1450 ml Balance -390 ml Intake Oral 1060 ml Output Urine Total 1450 ml Medications Current Medications Medications Dose Ordered Sig/Mikki Route Start Time Stop Time Status Last Admin Dose Admin Sodium Chloride 10 ml Q8HR IV 08/03/25 14:00 08/06/25 09:18 10 ML Docusate Sodium 100 mg BIDPRN PRN PO 08/03/25 11:15 08/06/25 03:43 100 MG Acetaminophen 650 mg Q6HP PRN PO 08/03/25 11:15 Acetaminophen/ Hydrocodone Bitart 1 tab Q4HP PRN PO 08/03/25 11:15 Hydromorphone HCl 0.5 mg Q4HP PRN IV 08/03/25 11:15 Ondansetron HCl 4 mg Q4HP PRN IV 08/03/25 11:15 Enoxaparin Sodium 40 mg DAILY SC 08/04/25 10:00 08/05/25 09:09 40 MG Nitroglycerin 0.4 mg Q5MINP PRN SL 08/03/25 11:15 Morphine Sulfate 2 mg Q30M PRN IV 08/03/25 11:15 Amiodarone HCl 200 mg DAILY PO 08/04/25 10:00 08/06/25 09:17 200 MG Aspirin 81 mg DAILY PO 08/04/25 10:00 08/06/25 09:17 81 MG Atorvastatin Calcium 40 mg HS PO 08/03/25 22:00 08/05/25 21:29 40 MG Empaglifozin 10 mg DAILY PO 08/04/25 10:00 08/06/25 09:17 10 MG Sacubitril/ Valsartan 1 tab BID PO 08/03/25 22:00 08/06/25 09:17 1 TAB Spironolactone 25 mg DAILY PO 08/04/25 10:00 08/06/25 09:17 25 MG Amlodipine Besylate 10 mg DAILY PO 08/04/25 10:00 08/06/25 09:17 10 MG Metoprolol Succinate 50 mg DAILY PO 08/04/25 10:00 08/06/25 09:16 50 MG Furosemide 40 mg BIDD IV 08/03/25 18:00 08/06/25 05:49 40 MG Albuterol 2.5 mg Q4HPRN PRN NEB 08/03/25 12:15 08/06/25 02:34 2.5 MG Laboratory Results Laboratory Tests 08/06/25 05:05 Chemistry Test 08/06/25 05:05 Albumin 3.0 g/dL (3.2-4.8) L Calcium Level 8.7 mg/dL (8.7-10.4) Magnesium Level 2.1 mg/dL (1.6-2.6) Total Protein 7.0 g/dL (5.7-8.2) LFT Test 08/06/25 05:05 Alanine Aminotransferase (ALT) 81 U/L (7-40) H Alkaline Phosphatase 1099 U/L (46-116) H Aspartate Amino Transferase (AST) 132 U/L (13-40) H Total Bilirubin 2.4 mg/dL (0.2-1.0) H Urinalysis Test 08/03/25 09:48 Urine Color Yellow (Yellow) Urine Clarity Clear (Clear) Urine pH 7.0 (5.0-9.0) Urine Specific [place] 1.012 (1.001-1.035) Urine Protein Negative (Negative) Urine Ketones Negative (Negative) Urine Blood Negative /uL (Negative) Urine Nitrite Negative (Negative) Urine Bilirubin Negative (Negative) Urine Urobilinogen 2 mg/dL (Negative) H Urine Leukocyte Esterase Negative /uL (Negative) Urine RBC <1 /hpf (0 - 3) Urine Microscopic WBC 1 /HPF (0-3) Urine Squamous Epithelial Cells Few /hpf (<5) Urine Bacteria None seen /hpf (None Seen) Urine Glucose Normal mg/dL (Normal) Labs and/or images reviewed: Labs reviewed by me, Image(s) reviewed by me Assessment/Plan Assessment/Plan Acute on chronic HFrEF with exacerbation, EF 10% ( Echo from 01/24/2025) Lasix 40 mg IV b.i.d. consult for Dr. Kapoor appreciated CAD/ischemic cardiomyopathy, symptomatic Paroxysmal Atrial Fibrillation Type 2 diabetes mellitus, HbA1c: 5.5 (05/18/2025) Hyperlipidemia Alcoholic Liver Cirrhosis History of Liver Cancer CBD adenoma s/p biliary stenting History of polysubstance abuse in the past Time spent 50 minutes Advanced care time 20 minutes Patient is full code Does not want to go on hospice at this time Plan discussed with: Patient Date of Service: Aug 06, 2025 Billing Provider: WILFRED CALL MD Common Visit Codes: [id number] INP/OBS CARE(HIGH) WILFRED CALL MD Aug 06, 2025 09:39
--- NOTE | 2025-08-06 09:46 | DVHDS2 ---
Discharge Summary Date of Admission Aug 03, 2025 at 11:08 Date of Discharge: Aug 06, 2025 Admitting Diagnosis Shortness of breath Wounds: None Labs/Diagnostic Data: Laboratory Results Test 08/06/25 05:05 08/06/25 02:56 08/03/25 13:08 08/03/25 09:48 White Blood Count 4.0 10^3/uL (4.4-10.8) Red Blood Count 4.54 10^6/uL (4.5-5.90) Hemoglobin 9.6 g/dL (13.5-17.5) Hematocrit 29.6 % (41.0-53.0) Mean Corpuscular Volume 65.2 fL (80.0-100.0) Mean Corpuscular Hemoglobin 21.2 pg (28.0-32.0) Mean Corpuscular Hemoglobin Concent 32.4 g/dL (32.0-36.0) Red Cell Distribution Width 19.7 % (11.8-14.3) Platelet Count 216 10^3/uL (140-450) Mean Platelet Volume 8.4 fL (6.9-10.8) Neutrophils (%) (Auto) 68.1 % (37.0-80.0) Lymphocytes (%) (Auto) 20.3 % (10.0-50.0) Monocytes (%) (Auto) 10.2 % (0.0-12.0) Eosinophils (%) (Auto) 1.3 % (0.0-7.0) Basophils (%) (Auto) 0.1 % (0.0-2.0) Neutrophils # (Auto) 2.7 10 ^3/uL (1.6-8.6) Lymphocytes # (Auto) 0.8 10 ^3/uL (0.4-5.4) Monocytes # (Auto) 0.4 10 ^3/uL (0-1.3) Eosinophils # (Auto) 0.1 10 ^3/uL (0-0.8) Basophils # (Auto) 0 10 ^3/uL (0-0.2) Nucleated Red Blood Cells 0.1 % Sodium Level 137 mmol/L (136-145) Potassium Level 3.7 mmol/L (3.5-5.1) Chloride Level 99 mmol/L (98-107) Carbon Dioxide Level 28 mmol/L (20-31) Anion Gap 10 (5-15) Blood Urea Nitrogen 13 mg/dL (9-23) Creatinine 0.66 mg/dL (0.700-1.30) Glomerular Filtration Rate Calc 99 mL/min (>90) BUN/Creatinine Ratio 19.7 (10.0-20.0) Serum Glucose 73 mg/dL (74-106) Calcium Level 8.7 mg/dL (8.7-10.4) Magnesium Level 2.1 mg/dL (1.6-2.6) Total Bilirubin 2.4 mg/dL (0.2-1.0) Aspartate Amino Transferase (AST) 132 U/L (13-40) Alanine Aminotransferase (ALT) 81 U/L (7-40) Alkaline Phosphatase 1099 U/L (46-116) Total Protein 7.0 g/dL (5.7-8.2) Albumin 3.0 g/dL (3.2-4.8) POC Glucose 124 mg/dl (70-106) Troponin I High Sensitivity 13 ng/L (</=54) Urine Color Yellow (Yellow) Urine Clarity Clear (Clear) Urine pH 7.0 (5.0-9.0) Urine Specific [place] 1.012 (1.001-1.035) Urine Protein Negative (Negative) Urine Ketones Negative (Negative) Urine Blood Negative /uL (Negative) Urine Nitrite Negative (Negative) Urine Bilirubin Negative (Negative) Urine Urobilinogen 2 mg/dL (Negative) Urine Leukocyte Esterase Negative /uL (Negative) Urine RBC <1 /hpf (0 - 3) Urine Microscopic WBC 1 /HPF (0-3) Urine Squamous Epithelial Cells Few /hpf (<5) Urine Bacteria None seen /hpf (None Seen) Urine Glucose Normal mg/dL (Normal) Test 08/03/25 09:00 B-Type Natriuretic Peptide 2823.02 pg/mL (0-100) Other Laboratory Tests 08/06/25 05:05 Brief Hx & Hospital Course: 74-year-old male with a ischemic cardiomyopathy coronary artery disease ejection fraction 10 percent January 2025 chronic systolic congestive heart failure on multiple medications at home came in for shortness of breaths. Found to have acute exacerbation of CHF treated with Lasix Jardiance Entresto Aldactone seen by Cardiology Dr. Kapoor history of hypercholesterolemia cirrhosis of liver and liver cancer also CBD adenoma status post biliary stenting history of polysubstance abuse in the past. The patient feels better and being discharged back to home health. 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 Kapoor Reviewed all the previous home medications Consults/Reason for consult Cardiology Dr. Ajith Kapoor Operations or Procedures None Condition at Discharge: Fair Final Diagnosis/Problems List Acute on chronic HFrEF with exacerbation, EF 10% ( Echo from 01/24/2025) Lasix 40 mg IV b.i.d. consult for Dr. Kapoor appreciated CAD/ischemic cardiomyopathy, symptomatic Paroxysmal Atrial Fibrillation Type 2 diabetes mellitus, HbA1c: 5.5 (05/18/2025) Hyperlipidemia Alcoholic Liver Cirrhosis History of Liver Cancer CBD adenoma s/p biliary stenting History of polysubstance abuse in the past Discharge Disposition: Home with Health Services Discharge Instruct/Medications Diet: Cardiac 2g Na,low cholest Activity: Light activity Follow Up/Referral: Follow up with your primary Dr Resume all previous home medications Medications: Sent to the pharmacy Scheduled Amiodarone HCl (Amiodarone HCl), 1 TAB PO DAILY, (Reported) Amlodipine Besylate (Amlodipine Besylate), 1 TAB PO DAILY, (Reported) Aspirin (Aspirin Low Dose), 81 MG PO DAILY Atorvastatin Calcium (Atorvastatin Calcium), 1 TAB PO DAILY, (Reported) Empagliflozin (Jardiance), 10 MG PO DAILY Furosemide (Furosemide), 1 TAB PO DAILY Ipratropium [place] Hfa (Atrovent Hfa), 2 PUFF INH QIDPRN Losartan Potassium (Losartan Potassium), 1 TAB PO DAILY, (Reported) Metoprolol Succinate (Metoprolol Succinate Er), 50 MG PO DAILY Potassium Chloride (Potassium Chloride Cr), 1 TAB PO DAILY Sacubitril-Valsartan (Entresto 24-26 mg), 1 TAB PO BID Spironolactone (Spironolactone), 1 TAB PO BID, (Reported) Scheduled PRN Albuterol Sulfate (Ventolin Mdi), 90 MCG IN Q4HP PRN 39 (Time taken for discharge summary 39 minutes) Discharge Statement: "Patient was advised to return to the ER or call 911 if any headaches, dizziness, shortness of breath, chest pain, abdominal pain, bleeding, fevers, or worsening of medical condition. Patient was counseled about treatment plan, medications, possible side effects, patientverbalized understanding. All questions were answered to the best of my ability. This discharge took greater then 30 minutes in planning, reviewing documentation, counseling the patient, and discussing with other team members." ASSESSMENT ASSESSMENT Hospital Course Improved Assessment Acute on chronic HFrEF with exacerbation, EF 10% ( Echo from 01/24/2025) Lasix 40 mg IV b.i.d. consult for Dr. Kapoor appreciated CAD/ischemic cardiomyopathy, symptomatic Paroxysmal Atrial Fibrillation Type 2 diabetes mellitus, HbA1c: 5.5 (05/18/2025) Hyperlipidemia Alcoholic Liver Cirrhosis History of Liver Cancer CBD adenoma s/p biliary stenting History of polysubstance abuse in the past Date of Service: Aug 06, 2025 Billing Provider: WILFRED CALL MD Common Visit Codes: 88710-DAK/OBS DISCH DAY >30min WILFRED CALL MD Aug 06, 2025 09:46
--- NOTE | 2025-08-06 23:15 | DVHPN2 ---
Progress Note - Dictate Date Seen: Aug 06, 2025 Medical Necessity Reason Pt with a Central, PICC or Fol: No Subjective Patient was seen and evaluated in follow-up. Patient has no new complaints at this time. Patient denies any cardiac symptoms. Patient is cardiac stable for discharge. Telemetry reviewed. vital signs Vital Sign Date Time Temp Pulse Resp B/P (MAP) Pulse Ox O2 Delivery O2 Flow Rate FiO2 08/06/25 11:22 60 18 111/61 95 3.0 32 08/06/25 10:00 Nasal Cannula 08/06/25 08:50 97.9 97.9 Total Intake and Output 08/05/25 08/05/25 08/06/25 15:00 23:00 07:00 Intake Total 100 ml 360 ml 600 ml Output Total 650 ml 800 ml Balance 100 ml -290 ml -200 ml objective GENERAL: Alert and oriented x 3. No acute distress. Jaundice of the left sclera, chronically ill-appearing. EYES: PERRL, EOMI. Anicteric. HENT: Moist mucous membranes. LUNGS: Clear to auscultation bilaterally. CARDIOVASCULAR: Regular rate and rhythm. ABDOMEN: Soft, nontender and nondistended. EXTREMITIES: No edema. NEUROLOGIC: No focal neurological deficits. SKIN: Warm, dry. laboratory and microbiology Laboratory Tests 08/06/25 05:05 Test 08/06/25 05:05 Range/Units Serum Glucose 73 L 74-106 mg/dL Problem List Acute on chronic HFrEF with exacerbation, EF 10% ( Echo from 01/24/2025). CAD/ischemic cardiomyopathy, symptomatic. Paroxysmal Atrial Fibrillation. Type 2 diabetes mellitus. Hyperlipidemia. Alcoholic Liver Cirrhosis. History of Liver Cancer. CBD adenoma s/p biliary stenting. Assessment/Plan Continued all current supportive medical care. Dilaudid and [place] for pain management. Amiodarone. Amlodipine. Aspirin,Metoprolol. Diuretics with Lasix. Nitro SL. Additional plan as per the hospital course. Plan discussed with: Patient RENATA PEDRAZA MD Aug 06, 2025 13:17
== END 2025-08-06 12:25 | disposition home health service (06) | DRG 291 ==
LOC: EDUNIT# 08:17 → ER 08:17 → EDBD 08:17 → OVERFLOW 11:08 → TELE-CENTR 21:09
PROVIDERS: ADMIT Family Medicine; ATTEND Family Medicine
DX: I11.0 Hypertensive heart disease with heart failure (principal); I50.23 Acute on chronic systolic (congestive) heart failure; K70.30 Alcoholic cirrhosis of liver without ascites; E11.9 Type 2 diabetes mellitus without complications; J44.9 Chronic obstructive pulmonary disease, unspecified; Z95.820 Peripheral vascular angioplasty status with implants and grafts; E87.6 Hypokalemia; I25.5 Ischemic cardiomyopathy; E78.00 Pure hypercholesterolemia, unspecified; I48.0 Paroxysmal atrial fibrillation; I25.10 Atherosclerotic heart disease of native coronary artery without angina pectoris; Z79.82 Long term (current) use of aspirin; Z79.899 Other long term (current) drug therapy; Z82.49 Family history of ischemic heart disease and other diseases of the circulatory system; Z85.05 Personal history of malignant neoplasm of liver; Z98.61 Coronary angioplasty status
CPT/HCPCS: 36415; 71045; 80048; 80053; 81001; 82962; 83735; 83880; 84132; 84484; 85025; 93005; 94640; 96365; 99291; G0378; J3480